=== PATIENT | male | born 1935 | race African-American/Black ===

== ENCOUNTER 2018-02-20 16:40 | Inpatient (IN) | payer OTHER, MEDICAID ==
[2018-02-20 17:28] LABS: BASO # 0.1 x10^3/uL (0.0-0.2); BASO % 0 % (0-3); EOS % 0 % (0-3); HEMATOCRIT 48.1 % (39.0-53.0); HEMOGLOBIN 16.1 g/dL (13.0-17.5); LYMPH # 0.3 x10^3/uL (1.0-4.8); LYMPH % 2 % (24-48); MEAN CORPUSCULAR HEMOGLOBIN 33 pg (25-35); MEAN CORPUSCULAR HGB CONC 33 g/dL (31-37); MEAN CORPUSCULAR VOLUME 99 fL (79-100); MONO # 1.6 x10^3/uL (0.0-1.1); MONO % 9 % (0-9); NEUT # 15.9 x10^3uL (1.8-7.7); NEUT % 89 % (31-73); PLATELET COUNT 207 x10^3/uL (140-400); RED BLOOD COUNT 4.87 x10^6/uL (4.30-5.70); RED CELL DISTRIBUTION WIDTH 15.9 % (11.5-14.5); WHITE BLOOD COUNT 17.9 x10^3/uL (4.0-11.0)
[2018-02-20 17:33] LABS: ANION GAP 11 (6-14); BLOOD UREA NITROGEN 17 mg/dL (8-26); BUN/CREATININE RATIO 11 (6-20); CALCIUM 8.9 mg/dL (8.5-10.1); CARBON DIOXIDE 25 mmol/L (21-32); CHLORIDE 105 mmol/L (98-107); CREATININE 1.5 mg/dL (0.7-1.3); GFR 54.3; GLUCOSE 109 mg/dL (70-99); POTASSIUM 3.9 mmol/L (3.5-5.1); SODIUM 141 mmol/L (136-145)
[2018-02-20 17:34] LABS: ADD MAN DIFF? YES
[2018-02-20 17:36] LABS: INR 1.2 (0.8-1.1); PROTHROMBIN TIME PATIENT 14.3 SEC (11.7-14.0)
[2018-02-20 17:39] LABS: ALBUMIN 3.1 g/dL (3.4-5.0); ALBUMIN/GLOBULIN RATIO 0.7 (1.0-1.7); ALK PHOS 137 U/L (46-116); ALT (SGPT) 16 U/L (16-63); AST (SGOT) 23 U/L (15-37); LIPASE 48 U/L (73-393); TOTAL BILIRUBIN 1.6 mg/dL (0.2-1.0); TOTAL PROTEIN 7.3 g/dL (6.4-8.2)
[2018-02-20 17:47] LABS: TROPONINI 0.056 ng/mL (0.000-0.055)
[2018-02-20 17:49] LABS: CREATINE KINASE 132 U/L (39-308)
[2018-02-20 17:53] LABS: LACTIC ACID 2.2 mmol/L (0.4-2.0)
[2018-02-20 17:54] LABS: CKMB MASS < 0.5 ng/mL (0.0-3.6)
[2018-02-20 18:22] LABS: % BANDS 3 % (0-9); % LYMPHS 1 % (24-48); % MONOS 11 % (0-10); % SEGS 85 % (35-66)
[2018-02-20 18:24] LABS: PLT ESTIMATE ADEQUATE (ADEQUATE)
[2018-02-20 18:35] LABS: BILIRUBIN,URINE MODERATE (NEG); CLARITY,URINE CLOUDY; GLUCOSE,URINE NEGATIVE (NEG); NITRITE,URINE NEGATIVE (NEG); PH,URINE 5.5; PROTEIN,URINE 100 mg/dL (NEG-TRACE)
[2018-02-20 18:40] LABS: NT-PRO BNP 11309 pg/mL (0-449)
[2018-02-20 18:45] LABS: COLOR,URINE AMBER
[2018-02-20 18:48] LABS: RBC,URINE >40 /HPF (0-2)
[2018-02-20 18:49] LABS: BACTERIA,URINE 0 /HPF (0-FEW)
[2018-02-20] MEDS ORDERED: ACETAMINOPHEN 325 MG TABLET. PO (19:00)
[2018-02-20] MEDS: ONDANSETRON PF 4 MG/2 ML VIAL. IV (20:02)
[2018-02-20] MEDS: fentaNYL PF VIAL 100 MCG/2 ML VIAL IV (20:02)
[2018-02-20] MEDS: ASPIRIN 325 MG TABLET PO (20:46)
[2018-02-20 21:31] LABS: LACTIC ACID 1.7 mmol/L (0.4-2.0)
[2018-02-21 04:29] LABS: ADD MAN DIFF? NO
[2018-02-21 04:47] LABS: BASO % 0 % (0-3); EOS # 0.1 x10^3/uL (0.0-0.7); EOS % 1 % (0-3); HEMOGLOBIN 14.4 g/dL (13.0-17.5); LYMPH # 0.8 x10^3/uL (1.0-4.8); LYMPH % 5 % (24-48); MEAN CORPUSCULAR HEMOGLOBIN 33 pg (25-35); MEAN CORPUSCULAR HGB CONC 34 g/dL (31-37); MEAN CORPUSCULAR VOLUME 99 fL (79-100); MONO # 2.1 x10^3/uL (0.0-1.1); MONO % 13 % (0-9); NEUT # 12.9 x10^3uL (1.8-7.7); NEUT % 80 % (31-73); PLATELET COUNT 171 x10^3/uL (140-400); RED BLOOD COUNT 4.35 x10^6/uL (4.30-5.70); RED CELL DISTRIBUTION WIDTH 16.2 % (11.5-14.5)
[2018-02-21 04:59] LABS: ALBUMIN 2.3 g/dL (3.4-5.0); ALBUMIN/GLOBULIN RATIO 0.6 (1.0-1.7); ALK PHOS 106 U/L (46-116); ALT (SGPT) 14 U/L (16-63); ANION GAP 9 (6-14); AST (SGOT) 16 U/L (15-37); BLOOD UREA NITROGEN 20 mg/dL (8-26); BUN/CREATININE RATIO 14 (6-20); CALCIUM 7.9 mg/dL (8.5-10.1); CARBON DIOXIDE 25 mmol/L (21-32); CHLORIDE 106 mmol/L (98-107); CREATININE 1.4 mg/dL (0.7-1.3); GFR 58.9; GLUCOSE 117 mg/dL (70-99); POTASSIUM 3.7 mmol/L (3.5-5.1); SODIUM 140 mmol/L (136-145); TOTAL BILIRUBIN 1.2 mg/dL (0.2-1.0); TOTAL PROTEIN 5.9 g/dL (6.4-8.2)
[2018-02-21 05:02] LABS: TROPONINI 0.055 ng/mL (0.000-0.055)
[2018-02-21] MEDS ORDERED: ACETAMINOPHEN 325 MG TABLET. PO (09:15)
[2018-02-21] MEDS ORDERED: ONDANSETRON PF 4 MG/2 ML VIAL. IV (09:15)
[2018-02-21] MEDS ORDERED: HYDROcodone/APAP 5/325MG 1 TAB TABLET PO (09:15)
[2018-02-21 09:22] LABS: CHOLESTEROL 111 mg/dL (0-200); HDLC 41 mg/dL (40-60); LDLC 59 mg/dL (0-100); NON-HDL CHOLESTEROL 70 mg/dL (0-129); TRIGLYCERIDES 53 mg/dL (0-150); VLDLC 11 mg/dL (0-40)
[2018-02-21 09:26] LABS: CHOLESTEROL/HDL RATIO 2.7
[2018-02-21] MEDS: SPIRONOLACTONE 25 MG TABLET PO ×2 (10:00→20:37)
[2018-02-21 10:34] LABS: TROPONINI 0.052 ng/mL (0.000-0.055)
[2018-02-21] MEDS: IPRATRPIUM/ALBUTEROL 0.5/2.5MG 3 ML NEBU. NEB ×3 (11:28→19:44)
[2018-02-21] MEDS: ASPIRIN ENTERIC COATED 81 MG TABLET.DR. PO (13:13)
[2018-02-21] MEDS: COLCHICINE 0.6 MG TABLET PO (13:13)
[2018-02-21] MEDS: ALLOPURINOL 100 MG TABLET. PO (13:13)
[2018-02-21] MEDS: LOSARTAN POTASSIUM 50 MG TABLET. PO (13:13)
[2018-02-21] MEDS: TAMSULOSIN 0.4 MG CAP.ER.24H. PO (13:13)
[2018-02-21] MEDS: CLOPIDOGREL BISULFATE 75 MG TABLET PO (13:13)
[2018-02-21] MEDS: METOPROLOL TART IMMED RELEASE 50 MG TABLET. PO ×2 (13:14→20:36)
[2018-02-21] MEDS: MINERAL OIL/PETROLATUM TOPICAL CREAM 113GM JAR. TP (13:14)
[2018-02-21 16:53] LABS: TROPONINI 0.037 ng/mL (0.000-0.055)
[2018-02-21] MEDS: BUDESONIDE 0.5 MG/2 ML NEBU. NEB (19:44)
[2018-02-21] MEDS: FAMOTIDINE 20 MG TABLET. PO (20:36)
[2018-02-22 04:09] LABS: ADD MAN DIFF? NO
[2018-02-22 04:17] LABS: BASO % 0 % (0-3); EOS # 0.5 x10^3/uL (0.0-0.7); EOS % 4 % (0-3); HEMOGLOBIN 14.2 g/dL (13.0-17.5); LYMPH % 8 % (24-48); MEAN CORPUSCULAR HEMOGLOBIN 33 pg (25-35); MEAN CORPUSCULAR HGB CONC 33 g/dL (31-37); MEAN CORPUSCULAR VOLUME 100 fL (79-100); MONO # 1.7 x10^3/uL (0.0-1.1); MONO % 13 % (0-9); NEUT # 10.1 x10^3uL (1.8-7.7); NEUT % 76 % (31-73); PLATELET COUNT 156 x10^3/uL (140-400); RED BLOOD COUNT 4.32 x10^6/uL (4.30-5.70); RED CELL DISTRIBUTION WIDTH 16.2 % (11.5-14.5); WHITE BLOOD COUNT 13.3 x10^3/uL (4.0-11.0)
[2018-02-22 04:36] LABS: ANION GAP 7 (6-14); BLOOD UREA NITROGEN 21 mg/dL (8-26); CALCIUM 8.3 mg/dL (8.5-10.1); CARBON DIOXIDE 27 mmol/L (21-32); CHLORIDE 106 mmol/L (98-107); CREATININE 1.4 mg/dL (0.7-1.3); GFR 58.9; GLUCOSE 97 mg/dL (70-99); SODIUM 140 mmol/L (136-145)
[2018-02-22] MEDS: CLOPIDOGREL BISULFATE 75 MG TABLET PO (07:05)
[2018-02-22] MEDS: IPRATRPIUM/ALBUTEROL 0.5/2.5MG 3 ML NEBU. NEB ×4 (07:30→19:37)
[2018-02-22] MEDS: BUDESONIDE 0.5 MG/2 ML NEBU. NEB ×2 (07:30→19:37)
[2018-02-22] MEDS: TAMSULOSIN 0.4 MG CAP.ER.24H. PO (08:26)
[2018-02-22] MEDS: COLCHICINE 0.6 MG TABLET PO (08:26)
[2018-02-22] MEDS: SPIRONOLACTONE 25 MG TABLET PO ×2 (08:28→20:32)
[2018-02-22] MEDS: ASPIRIN ENTERIC COATED 81 MG TABLET.DR. PO (08:28)
[2018-02-22] MEDS: LOSARTAN POTASSIUM 50 MG TABLET. PO (08:28)
[2018-02-22] MEDS: METOPROLOL TART IMMED RELEASE 50 MG TABLET. PO ×2 (08:28→20:32)
[2018-02-22] MEDS: ALLOPURINOL 100 MG TABLET. PO (08:28)
[2018-02-22] MEDS ORDERED: POLYETHYLENE GLYCOL 3350 17 GM PACKET. PO (09:00)
[2018-02-22] MEDS: cloNIDine HCL 0.1 MG TABLET PO (15:28)
[2018-02-22] MEDS: FAMOTIDINE 20 MG TABLET. PO (20:32)
[2018-02-22] MEDS: HALOPERIDOL LACTATE 5 MG/ML VIAL. IVP (21:54)
[2018-02-23] MEDS: CLOPIDOGREL BISULFATE 75 MG TABLET PO ×2 (06:40→08:38)
[2018-02-23] MEDS: BUDESONIDE 0.5 MG/2 ML NEBU. NEB (07:27)
[2018-02-23] MEDS: IPRATRPIUM/ALBUTEROL 0.5/2.5MG 3 ML NEBU. NEB ×2 (07:27→12:10)
[2018-02-23] MEDS: ASPIRIN ENTERIC COATED 81 MG TABLET.DR. PO (08:38)
[2018-02-23] MEDS: LOSARTAN POTASSIUM 50 MG TABLET. PO (08:38)
[2018-02-23] MEDS: TAMSULOSIN 0.4 MG CAP.ER.24H. PO (08:38)
[2018-02-23] MEDS: COLCHICINE 0.6 MG TABLET PO (08:39)
[2018-02-23] MEDS: METOPROLOL TART IMMED RELEASE 50 MG TABLET. PO (08:39)
[2018-02-23] MEDS: SPIRONOLACTONE 25 MG TABLET PO (08:39)
[2018-02-23] MEDS: ALLOPURINOL 100 MG TABLET. PO (08:39)
== END 2018-02-23 13:25 | DRG 871 ==
LOC: ER 16:40 → 2 NORTH 18:03
DX: A41.9 Sepsis, unspecified organism (principal); I21.4 Non-ST elevation (NSTEMI) myocardial infarction; J96.90 Respiratory failure, unspecified, unspecified whether with hypoxia or hypercapnia; N17.0 Acute kidney failure with tubular necrosis; I13.0 Hypertensive heart and chronic kidney disease with heart failure and stage 1 through stage 4 chronic kidney disease, or unspecified chronic kidney disease; Z88.0 Allergy status to penicillin; E78.5 Hyperlipidemia, unspecified; I25.10 Atherosclerotic heart disease of native coronary artery without angina pectoris; I25.5 Ischemic cardiomyopathy; I25.2 Old myocardial infarction; I48.91 Unspecified atrial fibrillation; I50.9 Heart failure, unspecified; J44.9 Chronic obstructive pulmonary disease, unspecified; E66.9 Obesity, unspecified; M19.90 Unspecified osteoarthritis, unspecified site; F32.9 Major depressive disorder, single episode, unspecified; K21.9 Gastro-esophageal reflux disease without esophagitis; N18.9 Chronic kidney disease, unspecified; Z59.0 Homelessness; Z79.02 Long term (current) use of antithrombotics/antiplatelets; Z79.82 Long term (current) use of aspirin; Z79.899 Other long term (current) drug therapy; Z82.49 Family history of ischemic heart disease and other diseases of the circulatory system; Z86.73 Personal history of transient ischemic attack (TIA), and cerebral infarction without residual deficits; Z90.49 Acquired absence of other specified parts of digestive tract; Z95.0 Presence of cardiac pacemaker; Z87.01 Personal history of pneumonia (recurrent)
CPT/HCPCS: 36415; 71045; 74176; 80048; 80053; 80061; 81001; 82553; 83605; 83690; 83880; 84484; 85007; 85025; 85610; 87040; 93005; 93306; 94640; 94760; 96365; 96375; 97110-GP; 97116-GP; 97162-GP; 97166-GO; 97530-GO; 97530-GP; 97535-GO; 99285; 99285-25; J1630; J1956; J2060; J2405; J3010; J7620; J7626

== ENCOUNTER 2018-02-24 21:09 | Emergency (ER) | payer OTHER ==
[2018-02-24] MEDS: LIDOCAINE 2% 20 ML VIAL. IJ (22:05)
[2018-02-24] MEDS: DIPHTH,PERTUSS(ACELL),TET TOX 0.5 ML DISP.SYRIN. VAX IM (22:06)
[2018-02-24 22:08] LABS: ADD MAN DIFF? NO
[2018-02-24 22:10] LABS: BASO # 0.1 x10^3/uL (0.0-0.2); BASO % 1 % (0-3); EOS # 0.7 x10^3/uL (0.0-0.7); EOS % 8 % (0-3); HEMATOCRIT 44.8 % (39.0-53.0); HEMOGLOBIN 14.7 g/dL (13.0-17.5); LYMPH # 0.7 x10^3/uL (1.0-4.8); LYMPH % 8 % (24-48); MEAN CORPUSCULAR HEMOGLOBIN 33 pg (25-35); MEAN CORPUSCULAR HGB CONC 33 g/dL (31-37); MEAN CORPUSCULAR VOLUME 100 fL (79-100); MONO # 1.2 x10^3/uL (0.0-1.1); MONO % 14 % (0-9); NEUT # 6.1 x10^3uL (1.8-7.7); NEUT % 70 % (31-73); PLATELET COUNT 180 x10^3/uL (140-400); WHITE BLOOD COUNT 8.7 x10^3/uL (4.0-11.0)
[2018-02-24 22:19] LABS: INR 1.2 (0.8-1.1); PROTHROMBIN TIME PATIENT 14.2 SEC (11.7-14.0)
[2018-02-24 22:26] LABS: ANION GAP 8 (6-14); BLOOD UREA NITROGEN 21 mg/dL (8-26); BUN/CREATININE RATIO 15 (6-20); CALCIUM 8.7 mg/dL (8.5-10.1); CARBON DIOXIDE 28 mmol/L (21-32); CHLORIDE 107 mmol/L (98-107); CREATININE 1.4 mg/dL (0.7-1.3); GFR 58.9; GLUCOSE 117 mg/dL (70-99); SODIUM 143 mmol/L (136-145)
[2018-02-24 22:31] LABS: ALBUMIN 2.6 g/dL (3.4-5.0); ALBUMIN/GLOBULIN RATIO 0.6 (1.0-1.7); ALK PHOS 117 U/L (46-116); ALT (SGPT) 16 U/L (16-63); AST (SGOT) 17 U/L (15-37); TOTAL BILIRUBIN 0.5 mg/dL (0.2-1.0); TOTAL PROTEIN 6.9 g/dL (6.4-8.2)
[2018-02-24 22:33] LABS: TROPONINI 0.022 ng/mL (0.000-0.055)
[2018-02-24 23:27] LABS: BILIRUBIN,URINE NEGATIVE (NEG); CLARITY,URINE CLEAR; COLOR,URINE YELLOW; GLUCOSE,URINE NEGATIVE (NEG); NITRITE,URINE NEGATIVE (NEG); PROTEIN,URINE NEGATIVE (NEG-TRACE)
[2018-02-24 23:35] LABS: BACTERIA,URINE 0 /HPF (0-FEW); HYALINE CASTS, URINE FEW /HPF; RBC,URINE OCC /HPF (0-2); SQUAMOUS EPITHELIAL CELL,UR OCC /LPF
== END 2018-02-25 01:51 | disposition home or self-care (01) ==
LOC: ER 02-25 01:51
DX: S01.81XA Laceration without foreign body of other part of head, initial encounter (principal); I10 Essential (primary) hypertension; Z86.73 Personal history of transient ischemic attack (TIA), and cerebral infarction without residual deficits; Z88.0 Allergy status to penicillin; W18.09XA Striking against other object with subsequent fall, initial encounter; Y93.89 Activity, other specified; Y99.8 Other external cause status; Y92.89 Other specified places as the place of occurrence of the external cause
CPT/HCPCS: 12011; 36415; 70450; 71045; 73562; 80053; 81001; 84484; 85025; 85610; 87086; 90471; 90715; 93005; 99285-25; J2001

== ENCOUNTER 2018-02-25 04:52 | Inpatient (IN) | payer OTHER ==
[2018-02-25 05:15] LABS: POC GLUCOSE 94 mg/dL (70-99)
[2018-02-25] MEDS: amLODIPine BESYLATE 5 MG TABLET PO (05:44)
[2018-02-25] MEDS: IV NORMAL SALINE 1000ML BAG 1,000 ML IV (13:08)
[2018-02-25 19:09] LABS: MRSA BY PCR Negative (Negative)
[2018-02-26] MEDS ORDERED: HYDROcodone/APAP 5/325MG 1 TAB TABLET PO (06:15)
[2018-02-26] MEDS ORDERED: POLYETHYLENE GLYCOL 3350 17 GM PACKET. PO (06:15)
[2018-02-26] MEDS: BUDESONIDE 0.5 MG/2 ML NEBU. NEB ×2 (07:54→20:34)
[2018-02-26] MEDS: IPRATRPIUM/ALBUTEROL 0.5/2.5MG 3 ML NEBU. NEB ×4 (07:54→20:34)
[2018-02-26] MEDS: ASPIRIN ENTERIC COATED 81 MG TABLET.DR. PO (08:34)
[2018-02-26] MEDS: CLOPIDOGREL BISULFATE 75 MG TABLET PO (08:34)
[2018-02-26] MEDS: LOSARTAN POTASSIUM 50 MG TABLET. PO (08:34)
[2018-02-26] MEDS: COLCHICINE 0.6 MG TABLET PO (08:34)
[2018-02-26] MEDS: METOPROLOL TART IMMED RELEASE 50 MG TABLET. PO ×2 (08:35→20:54)
[2018-02-26] MEDS: SPIRONOLACTONE 25 MG TABLET PO ×2 (08:35→20:54)
[2018-02-26] MEDS: ALLOPURINOL 100 MG TABLET. PO (08:35)
[2018-02-26] MEDS: TAMSULOSIN 0.4 MG CAP.ER.24H. PO (08:35)
[2018-02-26] MEDS: IV NORMAL SALINE 1000ML BAG 1,000 ML IV (10:59)
[2018-02-26 17:22] LABS: ANION GAP 9 (6-14); BLOOD UREA NITROGEN 15 mg/dL (8-26); CALCIUM 8.2 mg/dL (8.5-10.1); CARBON DIOXIDE 23 mmol/L (21-32); CHLORIDE 107 mmol/L (98-107); CREATININE 1.3 mg/dL (0.7-1.3); GFR 64.1; GLUCOSE 124 mg/dL (70-99); POTASSIUM 3.6 mmol/L (3.5-5.1); SODIUM 139 mmol/L (136-145)
[2018-02-26] MEDS: LACTOBACILLUS RHAMNOSUS GG 1 CAPSULE. PO (20:53)
[2018-02-26] MEDS: NYSTATIN TOPICAL POWDER 15GM BOTTLE. TP (20:54)
[2018-02-26] MEDS: FAMOTIDINE 20 MG TABLET. PO (20:54)
[2018-02-27] MEDS: IV NORMAL SALINE 1000ML BAG 1,000 ML IV (05:53)
[2018-02-27] MEDS: IPRATRPIUM/ALBUTEROL 0.5/2.5MG 3 ML NEBU. NEB ×4 (07:10→19:33)
[2018-02-27] MEDS: BUDESONIDE 0.5 MG/2 ML NEBU. NEB ×2 (07:10→19:33)
[2018-02-27] MEDS: CLOPIDOGREL BISULFATE 75 MG TABLET PO (09:39)
[2018-02-27] MEDS: LACTOBACILLUS RHAMNOSUS GG 1 CAPSULE. PO ×2 (09:39→20:05)
[2018-02-27] MEDS: NYSTATIN TOPICAL POWDER 15GM BOTTLE. TP ×2 (09:39→20:07)
[2018-02-27] MEDS: COLCHICINE 0.6 MG TABLET PO (09:39)
[2018-02-27] MEDS: TAMSULOSIN 0.4 MG CAP.ER.24H. PO (09:39)
[2018-02-27] MEDS: SPIRONOLACTONE 25 MG TABLET PO ×2 (09:40→20:06)
[2018-02-27] MEDS: ASPIRIN ENTERIC COATED 81 MG TABLET.DR. PO (09:40)
[2018-02-27] MEDS: LOSARTAN POTASSIUM 50 MG TABLET. PO (12:55)
[2018-02-27] MEDS: ALLOPURINOL 100 MG TABLET. PO (12:55)
[2018-02-27] MEDS: METOPROLOL TART IMMED RELEASE 50 MG TABLET. PO ×2 (12:56→20:06)
[2018-02-27] MEDS: FAMOTIDINE 20 MG TABLET. PO (20:05)
[2018-02-27] MEDS: risperiDONE 0.25 MG TABLET. PO (21:46)
[2018-02-28] MEDS: IV NORMAL SALINE 1000ML BAG 1,000 ML IV ×7 (00:45→23:50)
[2018-02-28 07:17] LABS: ADD MAN DIFF? NO
[2018-02-28] MEDS: IPRATRPIUM/ALBUTEROL 0.5/2.5MG 3 ML NEBU. NEB ×3 (07:18→20:33)
[2018-02-28] MEDS: BUDESONIDE 0.5 MG/2 ML NEBU. NEB ×2 (07:18→20:33)
[2018-02-28 07:30] LABS: BASO # 0.1 x10^3/uL (0.0-0.2); BASO % 1 % (0-3); EOS # 0.6 x10^3/uL (0.0-0.7); EOS % 6 % (0-3); HEMATOCRIT 35.2 % (39.0-53.0); HEMOGLOBIN 11.7 g/dL (13.0-17.5); LYMPH # 0.6 x10^3/uL (1.0-4.8); LYMPH % 6 % (24-48); MEAN CORPUSCULAR HEMOGLOBIN 33 pg (25-35); MEAN CORPUSCULAR HGB CONC 33 g/dL (31-37); MEAN CORPUSCULAR VOLUME 100 fL (79-100); MONO # 0.9 x10^3/uL (0.0-1.1); MONO % 10 % (0-9); NEUT # 7.3 x10^3uL (1.8-7.7); NEUT % 76 % (31-73); PLATELET COUNT 170 x10^3/uL (140-400); RED BLOOD COUNT 3.54 x10^6/uL (4.30-5.70); RED CELL DISTRIBUTION WIDTH 16.1 % (11.5-14.5); WHITE BLOOD COUNT 9.5 x10^3/uL (4.0-11.0)
[2018-02-28] MEDS: TAMSULOSIN 0.4 MG CAP.ER.24H. PO (08:13)
[2018-02-28] MEDS: LACTOBACILLUS RHAMNOSUS GG 1 CAPSULE. PO ×2 (08:13→20:11)
[2018-02-28] MEDS: LOSARTAN POTASSIUM 50 MG TABLET. PO (08:13)
[2018-02-28] MEDS: SPIRONOLACTONE 25 MG TABLET PO ×2 (08:13→20:11)
[2018-02-28] MEDS: COLCHICINE 0.6 MG TABLET PO (08:13)
[2018-02-28] MEDS: ALLOPURINOL 100 MG TABLET. PO (08:14)
[2018-02-28] MEDS: METOPROLOL TART IMMED RELEASE 50 MG TABLET. PO ×2 (08:14→21:00)
[2018-02-28] MEDS: NYSTATIN TOPICAL POWDER 15GM BOTTLE. TP ×2 (08:14→21:00)
[2018-02-28] MEDS: risperiDONE 0.25 MG TABLET. PO ×2 (08:14→20:11)
[2018-02-28 08:24] LABS: FECAL OB PT POSITIVE (NEG); NEG OBC FOB NEG
[2018-02-28 08:25] LABS: POS OBC FOB POS
[2018-02-28] MEDS ORDERED: PNEUMOCOCCAL VAX SCREEN BY RX. MC (08:30)
[2018-02-28 09:00] LABS: MAGNESIUM 1.6 mg/dL (1.8-2.4)
[2018-02-28 09:00] LABS: ANION GAP 9 (6-14); BLOOD UREA NITROGEN 17 mg/dL (8-26); BUN/CREATININE RATIO 12 (6-20); CALCIUM 7.8 mg/dL (8.5-10.1); CARBON DIOXIDE 23 mmol/L (21-32); CHLORIDE 109 mmol/L (98-107); CREATININE 1.4 mg/dL (0.7-1.3); GFR 58.9; GLUCOSE 103 mg/dL (70-99); POTASSIUM 4.4 mmol/L (3.5-5.1); SODIUM 141 mmol/L (136-145)
[2018-02-28 09:06] LABS: ALBUMIN 2.1 g/dL (3.4-5.0); ALBUMIN/GLOBULIN RATIO 0.7 (1.0-1.7); ALK PHOS 84 U/L (46-116); ALT (SGPT) 14 U/L (16-63); AST (SGOT) 14 U/L (15-37); TOTAL BILIRUBIN 0.8 mg/dL (0.2-1.0); TOTAL PROTEIN 5.1 g/dL (6.4-8.2)
[2018-02-28 09:21] LABS: ADD MAN DIFF? NO
[2018-02-28 09:28] LABS: BASO # 0.1 x10^3/uL (0.0-0.2); BASO % 1 % (0-3); EOS # 0.4 x10^3/uL (0.0-0.7); EOS % 4 % (0-3); HEMATOCRIT 31.7 % (39.0-53.0); HEMOGLOBIN 10.4 g/dL (13.0-17.5); LYMPH # 0.6 x10^3/uL (1.0-4.8); LYMPH % 7 % (24-48); MEAN CORPUSCULAR HEMOGLOBIN 33 pg (25-35); MEAN CORPUSCULAR HGB CONC 33 g/dL (31-37); MEAN CORPUSCULAR VOLUME 102 fL (79-100); MONO # 0.9 x10^3/uL (0.0-1.1); MONO % 10 % (0-9); NEUT # 7.3 x10^3uL (1.8-7.7); NEUT % 78 % (31-73); PLATELET COUNT 143 x10^3/uL (140-400); RED BLOOD COUNT 3.12 x10^6/uL (4.30-5.70); RED CELL DISTRIBUTION WIDTH 16.3 % (11.5-14.5); WHITE BLOOD COUNT 9.4 x10^3/uL (4.0-11.0)
[2018-02-28 09:40] LABS: PARTIAL THROMBOPLASTIN TIME 31 SEC (24-38)
[2018-02-28 09:40] LABS: INR 1.4 (0.8-1.1); PROTHROMBIN TIME PATIENT 16.1 SEC (11.7-14.0)
[2018-02-28 09:43] LABS: LACTIC ACID 3.3 mmol/L (0.4-2.0); TROPONINI 0.048 ng/mL (0.000-0.055)
[2018-02-28] MEDS ORDERED: IV NORMAL SALINE 500ML BAG 500 ML IV (10:30)
[2018-02-28] MEDS ORDERED: NOREPINEPHRIN 8MG/250ML PREMIX 250 ML IV (10:30)
[2018-02-28] MEDS: VANCOMYCIN 2 GM in IV 1/2 NORMAL SALINE 500 ML IV (10:33)
[2018-02-28] MEDS: MAGNESIUM SULFATE 2GM 50 ML IV (11:00)
[2018-02-28] MEDS: VANCOMYCIN PER PHARMACY MC (13:38)
[2018-02-28] MEDS ORDERED: LIDOCAINE 1% PF 2 ML VIAL. (14:12)
[2018-02-28 14:58] LABS: HEMATOCRIT 22.3 % (39.0-53.0)
[2018-02-28 14:58] LABS: HEMOGLOBIN 7.3 g/dL (13.0-17.5)
[2018-02-28] MEDS: LIDOCAINE 1% PF 2 ML VIAL. INJ ×2 (15:00)
[2018-02-28] MEDS: PANTOPRAZOLE SODIUM IV DRIP 80 MG in IV NORMAL SALINE 100ML 100 ML IV (15:13)
[2018-02-28] MEDS: PANTOPRAZOLE IV PUSH 40 MG VIAL. IVP (15:19)
[2018-02-28 15:21] LABS: LACTIC ACID 1.2 mmol/L (0.4-2.0)
[2018-02-28 15:29] LABS: BILIRUBIN,URINE SMALL (NEG); GLUCOSE,URINE NEGATIVE (NEG); NITRITE,URINE NEGATIVE (NEG); PH,URINE 5.5; PROTEIN,URINE NEGATIVE (NEG-TRACE)
[2018-02-28 15:41] LABS: CLARITY,URINE HAZY; COLOR,URINE DK YELLOW
[2018-02-28 15:49] LABS: AMORPHOUS SEDIMENT,UR PRESENT /HPF; BACTERIA,URINE 0 /HPF (0-FEW); HYALINE CASTS, URINE OCCASIONAL /HPF; RBC,URINE 0 /HPF (0-2); WBC,URINE 0 /HPF (0-4)
[2018-02-28 16:54] LABS: TROPONINI 0.071 ng/mL (0.000-0.055)
[2018-02-28] MEDS: FAMOTIDINE 20 MG TABLET. PO (20:11)
[2018-02-28 22:42] LABS: HEMOGLOBIN 10.5 g/dL (13.0-17.5); MEAN CORPUSCULAR HGB CONC 34 g/dL (31-37)
[2018-02-28 23:00] LABS: TROPONINI 0.078 ng/mL (0.000-0.055)
[2018-03-01] MEDS: IV NORMAL SALINE 1000ML BAG 1,000 ML IV ×3 (00:15→23:57)
[2018-03-01] MEDS: PANTOPRAZOLE SODIUM IV DRIP 80 MG in IV NORMAL SALINE 100ML 100 ML IV ×3 (00:21→23:57)
[2018-03-01] MEDS: IPRATRPIUM/ALBUTEROL 0.5/2.5MG 3 ML NEBU. NEB ×4 (06:57→19:32)
[2018-03-01] MEDS: BUDESONIDE 0.5 MG/2 ML NEBU. NEB ×2 (06:57→19:32)
[2018-03-01] MEDS: COLCHICINE 0.6 MG TABLET PO (08:07)
[2018-03-01] MEDS: LOSARTAN POTASSIUM 50 MG TABLET. PO (08:07)
[2018-03-01] MEDS: TAMSULOSIN 0.4 MG CAP.ER.24H. PO (08:07)
[2018-03-01] MEDS: METOPROLOL TART IMMED RELEASE 50 MG TABLET. PO (08:07)
[2018-03-01] MEDS: LACTOBACILLUS RHAMNOSUS GG 1 CAPSULE. PO ×2 (08:07→20:44)
[2018-03-01] MEDS: SPIRONOLACTONE 25 MG TABLET PO (08:07)
[2018-03-01] MEDS: risperiDONE 0.25 MG TABLET. PO ×2 (08:08→20:44)
[2018-03-01] MEDS: ALLOPURINOL 100 MG TABLET. PO (08:08)
[2018-03-01 09:19] LABS: HEMATOCRIT 27.7 % (39.0-53.0); HEMOGLOBIN 9.3 g/dL (13.0-17.5); MEAN CORPUSCULAR HGB CONC 34 g/dL (31-37)
[2018-03-01 09:36] LABS: ALBUMIN 1.7 g/dL (3.4-5.0); ALBUMIN/GLOBULIN RATIO 0.7 (1.0-1.7); ALK PHOS 62 U/L (46-116); ALT (SGPT) 9 U/L (16-63); ANION GAP 9 (6-14); AST (SGOT) 15 U/L (15-37); BLOOD UREA NITROGEN 20 mg/dL (8-26); BUN/CREATININE RATIO 13 (6-20); CARBON DIOXIDE 20 mmol/L (21-32); CHLORIDE 115 mmol/L (98-107); CREATININE 1.6 mg/dL (0.7-1.3); GFR 50.4; GLUCOSE 103 mg/dL (70-99); POTASSIUM 4.1 mmol/L (3.5-5.1); SODIUM 144 mmol/L (136-145); TOTAL PROTEIN 4.1 g/dL (6.4-8.2)
[2018-03-01] MEDS: NYSTATIN TOPICAL POWDER 15GM BOTTLE. TP ×2 (11:04→20:44)
[2018-03-01] MEDS: VANCOMYCIN 1.5 GM in IV DEXTROSE 5% 500 ML IV (11:05)
[2018-03-01 15:10] LABS: HEMATOCRIT 26.8 % (39.0-53.0); MEAN CORPUSCULAR HEMOGLOBIN 33 pg (25-35); MEAN CORPUSCULAR HGB CONC 34 g/dL (31-37); MEAN CORPUSCULAR VOLUME 97 fL (79-100); PLATELET COUNT 124 x10^3/uL (140-400); RED BLOOD COUNT 2.77 x10^6/uL (4.30-5.70); RED CELL DISTRIBUTION WIDTH 16.4 % (11.5-14.5); WHITE BLOOD COUNT 9.8 x10^3/uL (4.0-11.0)
[2018-03-01 16:14] LABS: IMMEDIATE SPIN CROSSMATCH 1 5
[2018-03-01] MEDS: HALOPERIDOL LACTATE 5 MG/ML VIAL. IVP ×2 (17:24→20:50)
[2018-03-01 21:10] LABS: HEMATOCRIT 30.3 % (39.0-53.0); HEMOGLOBIN 10.2 g/dL (13.0-17.5); MEAN CORPUSCULAR HGB CONC 34 g/dL (31-37)
[2018-03-02 05:52] LABS: ADD MAN DIFF? NO
[2018-03-02 05:58] LABS: BASO # 0.1 x10^3/uL (0.0-0.2); BASO % 1 % (0-3); EOS # 1.1 x10^3/uL (0.0-0.7); EOS % 10 % (0-3); HEMATOCRIT 29.2 % (39.0-53.0); HEMOGLOBIN 9.8 g/dL (13.0-17.5); LYMPH # 0.7 x10^3/uL (1.0-4.8); LYMPH % 6 % (24-48); MEAN CORPUSCULAR HEMOGLOBIN 33 pg (25-35); MEAN CORPUSCULAR HGB CONC 34 g/dL (31-37); MEAN CORPUSCULAR VOLUME 97 fL (79-100); MONO # 1.5 x10^3/uL (0.0-1.1); MONO % 13 % (0-9); NEUT # 8.1 x10^3uL (1.8-7.7); NEUT % 70 % (31-73); PLATELET COUNT 124 x10^3/uL (140-400); RED BLOOD COUNT 3.02 x10^6/uL (4.30-5.70); RED CELL DISTRIBUTION WIDTH 16.6 % (11.5-14.5); WHITE BLOOD COUNT 11.6 x10^3/uL (4.0-11.0)
[2018-03-02 06:15] LABS: ANION GAP 9 (6-14); BLOOD UREA NITROGEN 18 mg/dL (8-26); CALCIUM 7.3 mg/dL (8.5-10.1); CARBON DIOXIDE 20 mmol/L (21-32); CHLORIDE 114 mmol/L (98-107); CREATININE 1.7 mg/dL (0.7-1.3); GLUCOSE 102 mg/dL (70-99); POTASSIUM 3.7 mmol/L (3.5-5.1); SODIUM 143 mmol/L (136-145)
[2018-03-02] MEDS ORDERED: PANTOPRAZOLE 40 MG TABLET.DR. PO (07:30)
[2018-03-02] MEDS ORDERED: PANTOPRAZOLE IV PUSH 40 MG VIAL. IVP (07:30)
[2018-03-02] MEDS: BUDESONIDE 0.5 MG/2 ML NEBU. NEB ×2 (08:09→19:33)
[2018-03-02] MEDS: IPRATRPIUM/ALBUTEROL 0.5/2.5MG 3 ML NEBU. NEB ×4 (08:09→19:33)
[2018-03-02 08:31] LABS: MAGNESIUM 1.5 mg/dL (1.8-2.4)
[2018-03-02] MEDS: COLCHICINE 0.6 MG TABLET PO (09:00)
[2018-03-02] MEDS: risperiDONE 0.25 MG TABLET. PO ×2 (09:00→19:17)
[2018-03-02] MEDS: ALLOPURINOL 100 MG TABLET. PO (09:00)
[2018-03-02] MEDS: LACTOBACILLUS RHAMNOSUS GG 1 CAPSULE. PO ×2 (09:00→19:17)
[2018-03-02] MEDS: HALOPERIDOL LACTATE 5 MG/ML VIAL. IVP (09:54)
[2018-03-02] MEDS: NYSTATIN TOPICAL POWDER 15GM BOTTLE. TP ×2 (09:55→21:15)
[2018-03-02] MEDS: MAGNESIUM SULFATE 2GM 50 ML IV ×2 (10:01→11:00)
[2018-03-02] MEDS: IV NORMAL SALINE 1000ML BAG 1,000 ML IV ×2 (10:03→23:37)
[2018-03-02] MEDS: PANTOPRAZOLE SODIUM IV DRIP 80 MG in IV NORMAL SALINE 100ML 100 ML IV (10:03)
[2018-03-02 15:05] LABS: HEMATOCRIT 32.3 % (39.0-53.0); HEMOGLOBIN 10.6 g/dL (13.0-17.5); MEAN CORPUSCULAR HEMOGLOBIN 32 pg (25-35); MEAN CORPUSCULAR HGB CONC 33 g/dL (31-37); MEAN CORPUSCULAR VOLUME 98 fL (79-100); PLATELET COUNT 120 x10^3/uL (140-400); RED CELL DISTRIBUTION WIDTH 16.9 % (11.5-14.5); WHITE BLOOD COUNT 12.6 x10^3/uL (4.0-11.0)
[2018-03-02 15:22] LABS: VANC TR 18.7 mcg/mL (10.0-20.0)
[2018-03-02] MEDS: VANCOMYCIN PER PHARMACY MC ×2 (15:58→16:00)
[2018-03-02] MEDS: VANCOMYCIN 1 GM in IV DEXTROSE 5% 250 ML IV (17:26)
[2018-03-03 01:16] LABS: HEMATOCRIT 27.7 % (39.0-53.0); HEMOGLOBIN 9.3 g/dL (13.0-17.5); MEAN CORPUSCULAR HEMOGLOBIN 33 pg (25-35); MEAN CORPUSCULAR HGB CONC 34 g/dL (31-37); MEAN CORPUSCULAR VOLUME 98 fL (79-100); PLATELET COUNT 114 x10^3/uL (140-400); RED BLOOD COUNT 2.81 x10^6/uL (4.30-5.70); RED CELL DISTRIBUTION WIDTH 16.9 % (11.5-14.5); WHITE BLOOD COUNT 10.8 x10^3/uL (4.0-11.0)
[2018-03-03] MEDS: IV NORMAL SALINE 1000ML BAG 1,000 ML IV ×3 (02:15→22:57)
[2018-03-03] MEDS: PANTOPRAZOLE SODIUM IV DRIP 80 MG in IV NORMAL SALINE 100ML 100 ML IV ×4 (04:00→15:43)
[2018-03-03] MEDS: BUDESONIDE 0.5 MG/2 ML NEBU. NEB ×2 (07:27→19:03)
[2018-03-03] MEDS: IPRATRPIUM/ALBUTEROL 0.5/2.5MG 3 ML NEBU. NEB ×4 (07:27→19:03)
[2018-03-03] MEDS: LACTOBACILLUS RHAMNOSUS GG 1 CAPSULE. PO ×2 (08:30→20:39)
[2018-03-03] MEDS: risperiDONE 0.25 MG TABLET. PO ×3 (08:30→20:39)
[2018-03-03] MEDS: ALLOPURINOL 100 MG TABLET. PO (08:30)
[2018-03-03] MEDS: COLCHICINE 0.6 MG TABLET PO (08:30)
[2018-03-03 08:54] LABS: BASO # 0.1 x10^3/uL (0.0-0.2); BASO % 1 % (0-3); EOS # 1.1 x10^3/uL (0.0-0.7); EOS % 10 % (0-3); HEMATOCRIT 27.6 % (39.0-53.0); HEMOGLOBIN 9.2 g/dL (13.0-17.5); LYMPH # 0.8 x10^3/uL (1.0-4.8); LYMPH % 8 % (24-48); MEAN CORPUSCULAR HEMOGLOBIN 33 pg (25-35); MEAN CORPUSCULAR HGB CONC 34 g/dL (31-37); MEAN CORPUSCULAR VOLUME 99 fL (79-100); MONO # 1.4 x10^3/uL (0.0-1.1); MONO % 13 % (0-9); NEUT # 7.5 x10^3uL (1.8-7.7); NEUT % 68 % (31-73); PLATELET COUNT 116 x10^3/uL (140-400); RED BLOOD COUNT 2.79 x10^6/uL (4.30-5.70); WHITE BLOOD COUNT 11.1 x10^3/uL (4.0-11.0)
[2018-03-03 08:58] LABS: ADD MAN DIFF? YES
[2018-03-03 09:30] LABS: ANION GAP 10 (6-14); BLOOD UREA NITROGEN 15 mg/dL (8-26); CALCIUM 7.7 mg/dL (8.5-10.1); CARBON DIOXIDE 19 mmol/L (21-32); CHLORIDE 113 mmol/L (98-107); CREATININE 1.7 mg/dL (0.7-1.3); GLUCOSE 65 mg/dL (70-99); POTASSIUM 3.6 mmol/L (3.5-5.1); SODIUM 142 mmol/L (136-145)
[2018-03-03 10:01] LABS: % BASOS 1 % (0-3); % EOS 5 % (0-5); % LYMPHS 5 % (24-48); % METAS 1 % (0-0); % MONOS 5 % (0-10); % SEGS 83 % (35-66)
[2018-03-03 10:02] LABS: PLT ESTIMATE DECREASED (ADEQUATE)
[2018-03-03] MEDS: NYSTATIN TOPICAL POWDER 15GM BOTTLE. TP ×2 (10:02→20:53)
[2018-03-03 10:03] LABS: ANISOCYTOSIS PRESENT; POIKILOCYTOSIS PRESENT
[2018-03-03 12:32] LABS: HEMOGLOBIN 10.5 g/dL (13.0-17.5); MEAN CORPUSCULAR HEMOGLOBIN 33 pg (25-35); MEAN CORPUSCULAR HGB CONC 34 g/dL (31-37); MEAN CORPUSCULAR VOLUME 98 fL (79-100); PLATELET COUNT 128 x10^3/uL (140-400); RED BLOOD COUNT 3.16 x10^6/uL (4.30-5.70); WHITE BLOOD COUNT 11.2 x10^3/uL (4.0-11.0)
[2018-03-03] MEDS: VANCOMYCIN PER PHARMACY MC (14:07)
[2018-03-03] MEDS: VANCOMYCIN 1 GM in IV DEXTROSE 5% 250 ML IV (16:59)
[2018-03-03] MEDS: ACETAMINOPHEN 325 MG TABLET. PO (20:39)
[2018-03-03 21:46] LABS: HEMATOCRIT 30.5 % (39.0-53.0); MEAN CORPUSCULAR HEMOGLOBIN 33 pg (25-35); MEAN CORPUSCULAR HGB CONC 33 g/dL (31-37); MEAN CORPUSCULAR VOLUME 100 fL (79-100); PLATELET COUNT 136 x10^3/uL (140-400); RED BLOOD COUNT 3.04 x10^6/uL (4.30-5.70); RED CELL DISTRIBUTION WIDTH 17.1 % (11.5-14.5); WHITE BLOOD COUNT 11.9 x10^3/uL (4.0-11.0)
[2018-03-03] MEDS: HALOPERIDOL LACTATE 5 MG/ML VIAL. IVP (22:17)
[2018-03-04] MEDS: PANTOPRAZOLE SODIUM IV DRIP 80 MG in IV NORMAL SALINE 100ML 100 ML IV ×2 (01:23→08:08)
[2018-03-04 04:49] LABS: ADD MAN DIFF? NO
[2018-03-04 05:02] LABS: BASO # 0.1 x10^3/uL (0.0-0.2); BASO % 1 % (0-3); EOS % 8 % (0-3); HEMATOCRIT 30.5 % (39.0-53.0); HEMOGLOBIN 10.1 g/dL (13.0-17.5); LYMPH # 1.1 x10^3/uL (1.0-4.8); LYMPH % 9 % (24-48); MEAN CORPUSCULAR HEMOGLOBIN 33 pg (25-35); MEAN CORPUSCULAR HGB CONC 33 g/dL (31-37); MEAN CORPUSCULAR VOLUME 100 fL (79-100); MONO # 1.2 x10^3/uL (0.0-1.1); MONO % 11 % (0-9); NEUT # 8.4 x10^3uL (1.8-7.7); NEUT % 72 % (31-73); PLATELET COUNT 132 x10^3/uL (140-400); RED BLOOD COUNT 3.05 x10^6/uL (4.30-5.70); RED CELL DISTRIBUTION WIDTH 16.9 % (11.5-14.5); WHITE BLOOD COUNT 11.7 x10^3/uL (4.0-11.0)
[2018-03-04 05:17] LABS: ANION GAP 8 (6-14); BLOOD UREA NITROGEN 11 mg/dL (8-26); CALCIUM 7.8 mg/dL (8.5-10.1); CARBON DIOXIDE 21 mmol/L (21-32); CHLORIDE 114 mmol/L (98-107); CREATININE 1.6 mg/dL (0.7-1.3); GFR 50.4; GLUCOSE 85 mg/dL (70-99); POTASSIUM 3.6 mmol/L (3.5-5.1); SODIUM 143 mmol/L (136-145)
[2018-03-04] MEDS: BUDESONIDE 0.5 MG/2 ML NEBU. NEB ×2 (07:24→19:58)
[2018-03-04] MEDS: IPRATRPIUM/ALBUTEROL 0.5/2.5MG 3 ML NEBU. NEB ×4 (07:24→19:58)
[2018-03-04] MEDS: COLCHICINE 0.6 MG TABLET PO (08:07)
[2018-03-04] MEDS: LACTOBACILLUS RHAMNOSUS GG 1 CAPSULE. PO ×2 (08:07→20:40)
[2018-03-04] MEDS: ALLOPURINOL 100 MG TABLET. PO (08:07)
[2018-03-04] MEDS: risperiDONE 0.25 MG TABLET. PO ×2 (08:07→20:40)
[2018-03-04] MEDS: IV NORMAL SALINE 1000ML BAG 1,000 ML IV (08:08)
[2018-03-04] MEDS: NYSTATIN TOPICAL POWDER 15GM BOTTLE. TP ×2 (08:08→20:41)
[2018-03-05] MEDS: BUDESONIDE 0.5 MG/2 ML NEBU. NEB ×2 (08:00→19:27)
[2018-03-05] MEDS: IPRATRPIUM/ALBUTEROL 0.5/2.5MG 3 ML NEBU. NEB ×4 (08:00→19:27)
[2018-03-05] MEDS: PANTOPRAZOLE 40 MG TABLET.DR. PO (08:09)
[2018-03-05] MEDS: LACTOBACILLUS RHAMNOSUS GG 1 CAPSULE. PO ×2 (08:10→20:32)
[2018-03-05] MEDS: COLCHICINE 0.6 MG TABLET PO (08:10)
[2018-03-05] MEDS: ALLOPURINOL 100 MG TABLET. PO (08:11)
[2018-03-05] MEDS: risperiDONE 0.25 MG TABLET. PO ×2 (08:14→20:32)
[2018-03-05] MEDS: NYSTATIN TOPICAL POWDER 15GM BOTTLE. TP ×2 (08:15→20:32)
[2018-03-06] MEDS: IPRATRPIUM/ALBUTEROL 0.5/2.5MG 3 ML NEBU. NEB ×2 (08:00→11:48)
[2018-03-06] MEDS: BUDESONIDE 0.5 MG/2 ML NEBU. NEB (08:00)
[2018-03-06] MEDS: risperiDONE 0.25 MG TABLET. PO (09:26)
[2018-03-06] MEDS: COLCHICINE 0.6 MG TABLET PO (09:26)
[2018-03-06] MEDS: ALLOPURINOL 100 MG TABLET. PO (09:27)
[2018-03-06] MEDS: PANTOPRAZOLE 40 MG TABLET.DR. PO (09:27)
[2018-03-06] MEDS: LACTOBACILLUS RHAMNOSUS GG 1 CAPSULE. PO (09:27)
[2018-03-06] MEDS: NYSTATIN TOPICAL POWDER 15GM BOTTLE. TP (09:29)
[2018-03-06 11:59] LABS: ADD MAN DIFF? NO
[2018-03-06 12:16] LABS: BASO # 0.1 x10^3/uL (0.0-0.2); BASO % 1 % (0-3); EOS # 1.4 x10^3/uL (0.0-0.7); EOS % 10 % (0-3); HEMATOCRIT 31.4 % (39.0-53.0); HEMOGLOBIN 10.4 g/dL (13.0-17.5); LYMPH # 0.7 x10^3/uL (1.0-4.8); LYMPH % 5 % (24-48); MEAN CORPUSCULAR HEMOGLOBIN 33 pg (25-35); MEAN CORPUSCULAR HGB CONC 33 g/dL (31-37); MEAN CORPUSCULAR VOLUME 99 fL (79-100); MONO # 1.3 x10^3/uL (0.0-1.1); MONO % 9 % (0-9); NEUT # 10.4 x10^3uL (1.8-7.7); NEUT % 75 % (31-73); PLATELET COUNT 159 x10^3/uL (140-400); RED BLOOD COUNT 3.19 x10^6/uL (4.30-5.70); RED CELL DISTRIBUTION WIDTH 17.2 % (11.5-14.5); WHITE BLOOD COUNT 13.9 x10^3/uL (4.0-11.0)
== END 2018-03-06 16:00 | DRG 377 ==
LOC: 1 WEST ICU 02-28 09:50 → 5 NORTH 03-03 19:44 → ER 04:52 → 5 NORTH 05:00
PROVIDERS: Internal Medicine
PROC: 30233N1 Transfusion of Nonautologous Red Blood Cells into Peripheral Vein, Percutaneous Approach (ICD-10-PCS; principal; 2018-02-25)
PROC: 02H633Z Insertion of Infusion Device into Right Atrium, Percutaneous Approach (ICD-10-PCS; 2018-02-28)
DX: K57.91 Diverticulosis of intestine, part unspecified, without perforation or abscess with bleeding (principal); G93.41 Metabolic encephalopathy; N17.9 Acute kidney failure, unspecified; I13.0 Hypertensive heart and chronic kidney disease with heart failure and stage 1 through stage 4 chronic kidney disease, or unspecified chronic kidney disease; R57.9 Shock, unspecified; I16.0 Hypertensive urgency; D64.9 Anemia, unspecified; E78.5 Hyperlipidemia, unspecified; E83.42 Hypomagnesemia; E86.1 Hypovolemia; F03.90 Unspecified dementia, unspecified severity, without behavioral disturbance, psychotic disturbance, mood disturbance, and anxiety; G89.29 Other chronic pain; I25.10 Atherosclerotic heart disease of native coronary artery without angina pectoris; I25.2 Old myocardial infarction; Z88.0 Allergy status to penicillin; I50.9 Heart failure, unspecified; K21.9 Gastro-esophageal reflux disease without esophagitis; K59.00 Constipation, unspecified; E66.9 Obesity, unspecified; F32.9 Major depressive disorder, single episode, unspecified; M10.9 Gout, unspecified; M19.90 Unspecified osteoarthritis, unspecified site; N18.9 Chronic kidney disease, unspecified; N40.0 Benign prostatic hyperplasia without lower urinary tract symptoms; S01.81XA Laceration without foreign body of other part of head, initial encounter; Z82.49 Family history of ischemic heart disease and other diseases of the circulatory system; Z86.73 Personal history of transient ischemic attack (TIA), and cerebral infarction without residual deficits; Z90.49 Acquired absence of other specified parts of digestive tract; Z95.0 Presence of cardiac pacemaker; Z87.01 Personal history of pneumonia (recurrent); Z68.39 Body mass index [BMI] 39.0-39.9, adult
CPT/HCPCS: 36415; 70450; 71045; 73562; 78278; 80048; 80053; 80202; 81001; 82274; 82962; 83605; 83735; 84484; 85007; 85014; 85018; 85025; 85027; 85610; 85730; 86850; 86900; 86901; 86920; 87040; 87086; 87641; 93005; 94640; 94760; 96374; 97110-GO; 97110-GP; 97116-GP; 97162-GP; 97164-GP; 97166-GO; 97168-GO; 97530-GP; 97535-GO; 99285; 99285-25; A9560; C9113; J1630; J1956; J3370; J3475; J7030; J7620; J7626; P9016

== ENCOUNTER 2018-10-14 18:41 | Inpatient (IN) | payer OTHER ==
[~2018-10-14] VITALS: Ht 12.7 cm; Wt 95.3 kg
[~2018-10-14 18:41] MED LIST: ACET325T9 PO; ALLO100T PO; ASPI-612 PO; BUDE0.5A NEB; CLOP75TA PO; COLC0.6T34 PO; FAMO20TA5 PO; FURO-68 PO; FURO40TA4 PO; HYDR-2678 PO; IPRA3AMP29 NEB; LISI-130 PO; LISI10TA2 PO; LOSA-73 PO; METO25TA4 PO; METO50TA6 PO; OMEP20CA10 PO; POLY17PO29 PO; POTA20TA12 PO; PRED-220 PO; SPIR25TA5 PO; SPIR50TA4 PO; TAMS0.4C2 PO; VERA240C2 PO
[2018-10-14] MEDS ORDERED: fentaNYL PF VIAL 100 MCG/2 ML VIAL IV ONE (19:00)
[2018-10-14] MEDS ORDERED: LABETALOL 20 MG/4 ML DISP.SYRIN. IVP ONE (19:00)
[2018-10-14] MEDS ORDERED: ONDANSETRON PF 4 MG/2 ML VIAL. IV ONE (19:00)
[2018-10-14 19:41] LABS: CALCIUM 9.6 mg/dL (8.5-10.1); CREATININE 1.5 mg/dL (0.7-1.3); GFR 54.2; POTASSIUM 4.5 mmol/L (3.5-5.1)
[2018-10-14 19:47] LABS: ALBUMIN 3.3 g/dL (3.4-5.0); ALBUMIN/GLOBULIN RATIO 0.6 (1.0-1.7); TOTAL BILIRUBIN 1.3 mg/dL (0.2-1.0); TOTAL PROTEIN 8.8 g/dL (6.4-8.2)
[2018-10-14] MEDS ORDERED: CONTRAST GIVEN. MC PRN (20:00)
[2018-10-14] MEDS ORDERED: IOHEXOL 300 MG/ML 100ML VIAL. IV ONE (20:00)
[2018-10-14 20:05] LABS: BASO % 0 % (0-3); EOS % 0 % (0-3); HEMATOCRIT 41.1 % (39.0-53.0); HEMOGLOBIN 12.7 g/dL (13.0-17.5); LYMPH # 0.2 x10^3/uL (1.0-4.8); LYMPH % 3 % (24-48); MEAN CORPUSCULAR HEMOGLOBIN 25 pg (25-35); MEAN CORPUSCULAR HGB CONC 31 g/dL (31-37); MEAN CORPUSCULAR VOLUME 82 fL (79-100); MONO # 0.5 x10^3/uL (0.0-1.1); MONO % 8 % (0-9); NEUT # 5.6 x10^3uL (1.8-7.7); NEUT % 89 % (31-73); PLATELET COUNT 156 x10^3/uL (140-400); RED BLOOD COUNT 4.99 x10^6/uL (4.30-5.70); RED CELL DISTRIBUTION WIDTH 19.9 % (11.5-14.5); WHITE BLOOD COUNT 6.4 x10^3/uL (4.0-11.0)
[2018-10-14 20:14] LABS: PROTHROMBIN TIME PATIENT 15.7 SEC (11.7-14.0)
[2018-10-14 20:28] LABS: % BANDS 1 % (0-9); % LYMPHS 2 % (24-48); % MONOS 5 % (0-10); % SEGS 92 % (35-66); ANISOCYTOSIS SLIGHT; PLT ESTIMATE ADEQUATE (ADEQUATE); POIKILOCYTOSIS SLIGHT
[2018-10-14 20:29] LABS: SCHISTOCYTES OCC
--- NOTE | 2018-10-14 20:33 | RAD ---
Examination: CT HEAD WO CONTRAST History: headache bp 230 Comparison/Correlation: 02/24/2018 CT head without contrast Findings: Axial images of the head were obtained without contrast. Atrophy is present. Advanced chronic ischemic changes white matter noted. No midline shift or mass effect. Chronic ischemic changes white matter noted. Chronic paranasal sinusitis is present. Impression: No intracranial hemorrhage. PQRS Compliance Statement: One or more of the following individualized dose reduction techniques were utilized for this examination: 1. Automated exposure control 2. Adjustment of the mA and/or kV according to patient size 3. Use of iterative reconstruction technique Electronically signed by: Jesse Pina MD (10/14/2018 8:30 PM) [facility]
--- NOTE | 2018-10-14 20:48 | RAD ---
Examination: CT ABD PELV W/ IV CONTRST ONLY History: abdo pain with vomiting. OMNI 300, 60ml Comparison/Correlation: 02/20/2018 CT abdomen and pelvis without contrast Findings: Axial images of the abdomen and pelvis were obtained following IV contrast. Sagittal and coronal reformatted images were provided. Small bilateral pleural effusions are present greater on the left. Minimal adjacent atelectasis. Pacemaker lead is visualized. Coronary arterial calcifications noted. Nodular contour of the liver is noted. Liver is small in size. Calculus involvement of the gallbladder neck noted. There are at least 2 calculi suggested and these measure less than 0.6 cm diameter. No biliary dilatation. No pericholecystic fluid. Significant laxity of the lower abdominal wall is noted. Lower abdominal pannus noted. Multiple distended small bowel loops are present with transition noted in the within the low abdomen tenderness. Diverticulosis of the colon noted. Suture material involves the ascending colon. No inflammatory change about the ascending colon. Renal cysts are present. Minimal ascites noted within lower abdominal pannus. Urinary bladder is unremarkable. Significant L4-5 disc space narrowing is present. Impression: Significant distention of small bowel loops with transition within the low abdominal pannus. Small bowel obstruction. Small pleural effusions with minimal adjacent atelectasis. Hepatic cirrhosis or other fibrotic process. Diverticulosis. PQRS Compliance Statement: One or more of the following individualized dose reduction techniques were utilized for this examination: 1. Automated exposure control 2. Adjustment of the mA and/or kV according to patient size 3. Use of iterative reconstruction technique Electronically signed by: Jesse Pina MD (10/14/2018 8:45 PM) [facility]
[2018-10-14 20:52] LABS: BILIRUBIN,URINE SMALL (NEG); CLARITY,URINE CLOUDY; COLOR,URINE AMBER; NITRITE,URINE NEGATIVE (NEG); PROTEIN,URINE >=300 mg/dL (NEG-TRACE)
[2018-10-14 20:56] LABS: SQUAMOUS EPITHELIAL CELL,UR FEW /LPF
[2018-10-14 20:57] LABS: BACTERIA,URINE 0 /HPF (0-FEW); HYALINE CASTS, URINE FEW /HPF; RBC,URINE 0 /HPF (0-2)
--- NOTE | 2018-10-14 21:42 | RAD ---
Examination: PORTABLE CHEST 1V History: AMS Comparison/Correlation: 01/29/2018 portable chest x-ray exam Findings: Portable upright frontal view of the chest was obtained. Single lead left-sided pacemaker is present. Heart size is somewhat enlarged. Evaluation of the retrocardiac region is limited due to cardiomegaly and underpenetrated technique as well as patient body habitus. Pulmonary vasculature is congested. No pneumothorax. Bilateral glenohumeral joint degenerative changes are present. Small left pleural effusion is questioned. Impression: Mild congestive heart failure. No definite infiltrate. Evaluation is limited. Consider lateral view for more complete assessment of the lung bases if clinically needed. Electronically signed by: Jesse Pina MD (10/14/2018 9:39 PM) [facility]
[2018-10-14] MEDS ORDERED: MORPHINE SULFATE 4 MG/ML VIAL. IV PRN (22:15)
[2018-10-14] MEDS ORDERED: ONDANSETRON PF 4 MG/2 ML VIAL. IV PRN (22:15)
[2018-10-14] MEDS ORDERED: NITROGLYCERIN OINT 1 GM PACKET. TP ONE (22:30)
--- NOTE | 2018-10-14 23:41 | PHYS DOC ---
Past Medical History Past Medical History: A-Fib, Anemia, Arthritis, Arrhythmia, CHF, COPD, GERD, High Cholesterol, Hypertension, TIA, Other Additional Past Medical Histor: H/A, OBESITY, FALSE PASS, BPH,AMS,LYMPHEDEMA,MDD, PSYCHOSIS,NSTEMI,DYSPHAGIA Past Surgical History: Appendectomy, Pacemaker, Other Additional Past Surgical Histo: mass removed from abdomen Alcohol Use: None Drug Use: None Adult General Chief Complaint Chief Complaint: HYPERTENSION HPI HPI Patient is a 83 year old male brought in by AMBULANCE from a halfway with vomiting 2 days as well as elevated blood pressure. He has been vomiting complaining of diffuse abdominal pain for 2 days he has not been taking able to take his blood pressure medication as such as pressure was in the 220s medics gave Nitropaste it stayed up he was also complaining of headache denied chest pain currently he said his headache is a little bit better than it was before. Symptoms are moderate slowly worsening with time Review of Systems Review of Systems Constitutional: Denies fever or chills [] Eyes: Denies change in visual acuity, redness, or eye pain [] Cardiovascular: No additional information not addressed in HPI [] GI: : Denies dysuria or hematuria [] Integument: Denies rash or skin lesions [] Neurologic: Deniesocal weakness or sensory changes [] Endocrine: Denies polyuria or polydipsia [] All other systems were reviewed and found to be within normal limits, except as documented in this note. Current Medications Current Medications Current Medications Medications (Trade) Dose Ordered Sig/Katrina Start Time Stop Time Status Last Admin Dose Admin Fentanyl Citrate (Fentanyl 2ml Vial) 50 mcg 1X ONCE 10/14/18 19:00 10/14/18 19:05 DC 10/14/18 19:21 50 MCG Info (CONTRAST GIVEN -- Rx MONITORING) 1 each PRN DAILY PRN 10/14/18 20:00 10/16/18 19:59 Iohexol (Omnipaque 300 Mg/ml) 60 ml 1X ONCE 10/14/18 20:00 10/14/18 20:01 DC 10/14/18 20:08 60 ML Labetalol HCl (Normodyne Iv Push) 20 mg 1X ONCE 10/14/18 19:00 10/14/18 19:05 DC 10/14/18 19:26 20 MG Ondansetron HCl (Zofran) 4 mg 1X ONCE 10/14/18 19:00 10/14/18 19:05 DC 10/14/18 19:13 4 MG Allergies Allergies Allergies Coded Allergies Type Severity Reaction Last Updated Verified Penicillins Allergy Intermediate Itching 03/06/16 Yes Physical Exam Physical Exam Constitutional: Well developed, well nourished, no acute distress, non-toxic appearance. [] HENT: Normocephalic, atraumatic, bilateral external ears normal, oropharynx moist, no oral exudates, nose normal. [] Eyes: PERRLA, EOMI, conjunctiva normal, no discharge. [] Neck: Normal range of motion, no tenderness, supple, no stridor. [] Cardiovascular:Heart rate regular rhythm, 2/6 systolic ejection murmur noted] Lungs & Thorax: Decreased breath sounds bilateral lung bases Abdomen: Soft tender to palpation is noted diffusely but greater on the right there is an abnormal shape to his abdominal wall. There is a what initially felt to be a ventral hernia that I was able to reduce fairly easily at least partially there still remained abnormal shape of the abdominal wall however so it was difficult to tell exactly Skin: Warm, dry, no erythema, no rash. [] Back: No tenderness, no CVA tenderness. [] Extremities: No tenderness, no cyanosis, no clubbing, ROM intact, chronic appearing lower extremity edema bilaterally Neurologic: Alert and oriented X 3, normal motor function, normal sensory function, no focal deficits noted. [] Psychologic: Affect normal, judgement normal, mood normal. [] Current Patient Data Vital Signs Vital Signs Date Time Temp Pulse Resp B/P (MAP) Pulse Ox O2 Delivery O2 Flow Rate FiO2 10/14/18 19:26 75 241/129 10/14/18 19:21 18 96 Room Air 10/14/18 18:41 99.2 99.2 Lab Values Laboratory Tests Test 10/14/18 19:17 10/14/18 19:55 10/14/18 20:40 Sodium Level 138 mmol/L (136-145) Potassium Level 4.5 mmol/L (3.5-5.1) Chloride Level 100 mmol/L (98-107) Carbon Dioxide Level 29 mmol/L (21-32) Anion Gap 9 (6-14) Blood Urea Nitrogen 16 mg/dL (8-26) Creatinine 1.5 mg/dL (0.7-1.3) H Estimated GFR (Cockcroft-Gault) 54.2 BUN/Creatinine Ratio 11 (6-20) Glucose Level 120 mg/dL (70-99) H Lactic Acid Level 1.5 mmol/L (0.4-2.0) Calcium Level 9.6 mg/dL (8.5-10.1) Total Bilirubin 1.3 mg/dL (0.2-1.0) H Aspartate Amino Transferase (AST) 15 U/L (15-37) Alanine Aminotransferase (ALT) 10 U/L (16-63) L Alkaline Phosphatase 154 U/L (46-116) H Troponin I Quantitative 0.108 ng/mL (0.000-0.055) SK-Pcy-Q-Type Natriuretic Peptide 8198 pg/mL (0-449) H Total Protein 8.8 g/dL (6.4-8.2) H Albumin 3.3 g/dL (3.4-5.0) L Albumin/Globulin Ratio 0.6 (1.0-1.7) L Lipase 33 U/L (73-393) L White Blood Count 6.4 x10^3/uL (4.0-11.0) Red Blood Count 4.99 x10^6/uL (4.30-5.70) Hemoglobin 12.7 g/dL (13.0-17.5) L Hematocrit 41.1 % (39.0-53.0) Mean Corpuscular Volume 82 fL (79-100) Mean Corpuscular Hemoglobin 25 pg (25-35) Mean Corpuscular Hemoglobin Concent 31 g/dL (31-37) Red Cell Distribution Width 19.9 % (11.5-14.5) H Platelet Count 156 x10^3/uL (140-400) Neutrophils (%) (Auto) 89 % (31-73) H Lymphocytes (%) (Auto) 3 % (24-48) L Monocytes (%) (Auto) 8 % (0-9) Eosinophils (%) (Auto) 0 % (0-3) Basophils (%) (Auto) 0 % (0-3) Neutrophils # (Auto) 5.6 x10^3uL (1.8-7.7) Lymphocytes # (Auto) 0.2 x10^3/uL (1.0-4.8) L Monocytes # (Auto) 0.5 x10^3/uL (0.0-1.1) Eosinophils # (Auto) 0.0 x10^3/uL (0.0-0.7) Basophils # (Auto) 0.0 x10^3/uL (0.0-0.2) Segmented Neutrophils % 92 % (35-66) H Band Neutrophils % 1 % (0-9) Lymphocytes % 2 % (24-48) L Monocytes % 5 % (0-10) Platelet Estimate Adequate (ADEQUATE) Poikilocytosis Slight Anisocytosis Slight Schistocytes Occ Prothrombin Time 15.7 SEC (11.7-14.0) H Prothrombin Time INR 1.3 (0.8-1.1) H Urine Collection Type Unknown Urine Color Janelle Urine Clarity Cloudy Urine pH 6.0 Urine Specific [place] 1.025 Urine Protein >=300 mg/dL (NEG-TRACE) Urine Glucose (UA) Negative mg/dL (NEG) Urine Ketones (Stick) Trace mg/dL (NEG) Urine Blood Negative (NEG) Urine Nitrite Negative (NEG) Urine Bilirubin Small (NEG) Urine Urobilinogen Dipstick 1.0 mg/dL (0.2 mg/dL) Urine Leukocyte Esterase Negative (NEG) Urine RBC 0 /HPF (0-2) Urine WBC 5-10 /HPF (0-4) Urine Squamous Epithelial Cells Few /LPF Urine Bacteria 0 /HPF (0-FEW) Urine Hyaline Casts Few /HPF Urine Mucus Mod /LPF Laboratory Tests 10/14/18 19:55 Laboratory Tests 10/14/18 19:17 EKG EKG []EKG shows a paced rhythm rate of 72 in light of the paced rhythm no obvious acute ischemic changes were noted interpreted by me the time of encounter. Radiology/Procedures Radiology/Procedures [] Impressions: Impression: Significant distention of small bowel loops with transition within the low abdominal pannus. Small bowel obstruction. Small pleural effusions with minimal adjacent atelectasis. Hepatic cirrhosis or other fibrotic process. Diverticulosis. PQRS Compliance Statement: One or more of the following individualized dose reduction techniques were utilized for this examination: 1. Automated exposure control 2. Adjustment of the mA and/or kV according to patient size 3. Use of iterative reconstruction technique Electronically signed by: Jesse Pina MD (10/14/2018 8:45 PM) [facility] Course & Med Decision Making Course & Med Decision Making Pertinent Labs and Imaging studies reviewed. (See chart for details) []83-year-old male with multiple medical problems as noted above cardiac hypertension presenting with abdominal pain and vomiting found to have a bowel obstruction his blood pressure was high because he has not been keeping his meds down. We gave blood pressure medication the emergency room that did improve that somewhat the patient did not throw up in the ER. The troponin leak is probably related to the blood pressure. I spoke with Dr. HUNT from general surgery review the CT scan and the clinical picture I felt that I was able to get at least some reduction of was either ventral hernia or this abnormal shaped pannus, and on reevaluation the emergency room the patient actually said his abdominal pain was improving somewhat. In light of that and the fact that he has no white count and his pain is improving we have opted to treat him conservatively he would be admitted to the medical service. I did speak with Dr. Segura as well plan to admit pain control BP control gentle hydration etc. Family is aware of the plan and they're comfortable with it. Dragon Disclaimer Dragon Disclaimer This electronic medical record was generated, in whole or in part, using a voice recognition dictation system. Departure Departure Impression: Primary Impression: SBO (small bowel obstruction) Additional Impression: Hypertensive urgency Disposition: 09 ADMITTED INPATIENT Admitting Physician: Adrien Peters Condition: STABLE Referrals: MIKE SMITH MD (PCP) Problem Qualifiers FLORIN GARCIA MD Oct 14, 2018 23:41
[2018-10-15] MEDS: IV NORMAL SALINE 1000ML BAG 1,000 ML IV SCH ×3 (00:46→20:40)
--- NOTE | 2018-10-15 02:09 | NUR ---
Patient adamantly refuses to have serial troponin drawn. Patient stated he will leave this hospital and go to another. Family member at bedside expressed to patient it is hard to get sleep here and asked patient if was going to allow blood draw. Patient stated NO.
[2018-10-15 03:00] VITALS: BP 191/106
[2018-10-15] MEDS: LABETALOL 20 MG/4 ML DISP.SYRIN. IVP PRN (03:39)
[2018-10-15] MEDS ORDERED: POTA20TA82 PO (06:49)
[2018-10-15 07:00] VITALS: BP 128/65
[2018-10-15] MEDS ORDERED: FUROSEMIDE 20 MG TABLET PO SCH (09:00)
[2018-10-15] MEDS: NYSTATIN TOPICAL POWDER 15GM BOTTLE. TP SCH ×2 (09:04→20:41)
--- NOTE | 2018-10-15 09:37 | PDOC2 ---
CARLOS MANUEL ALFREDO [employer] SUPERVISOR 10/15/18 0937: CONSULT Date of Consult Date of Consult DATE: 10/15/18 TIME: 09:33 Reason for Consult Reason for Consult: SBO Referring Physician Referring Physician: ER Identification/Chief Complaint Chief Complaint abdominal pain Source Source: Chart review, Patient History of Present Illness Reason for Visit: 2 days of vomiting and abdominal pain. Pt is a very poor historian. Can not tell me when last BM was. Unsure if any flatus now. Reports now no abdominal pain. Wants to be discharged. Hx of abdominal surgery as a teenager, can not tell me what was done, Past Medical History Cardiovascular: CAD, CHF, HTN, Hyperlipidemia, Other Pulmonary: COPD, Pneumonia GI: GERD, Other Heme/Onc: Anemia NOS Psych: Depression, Other Musculoskeletal: Osteoarthritis, Weakness Rheumatologic: Other Renal/: Chronic renal insuff, Benign prostatic enlarg. Past Surgical History Past Surgical History: Other (abdominal surgery) Family History Family History: Heart Disease, Hypertension Social History ALCOHOL: none Drugs: None Current Medications Current Medications Current Medications Labetalol HCl (Normodyne Iv Push) 20 mg 1X ONCE IVP Last administered on at 19:26; Start 10/14/18 at 19:00; Stop 10/14/18 at 19:05; Status DC Ondansetron HCl (Zofran) 4 mg 1X ONCE IV Last administered on 10/14/18at 19:13 ; Start 10/14/18 at 19:00; Stop 10/14/18 at 19:05; Status DC Fentanyl Citrate (Fentanyl 2ml Vial) 50 mcg 1X ONCE IV Last administered on at 19:21; Start 10/14/18 at 19:00; Stop 10/14/18 at 19:05; Status DC Iohexol (Omnipaque 300 Mg/ml) 60 ml 1X ONCE IV Last administered on 10/14/18at 20:08; Start 10/14/18 at 20:00; Stop 10/14/18 at 20:01; Status DC Info (CONTRAST GIVEN -- Rx MONITORING) 1 each PRN DAILY PRN MC SEE COMMENTS; Start 10/14/18 at 20:00; Stop 10/16/18 at 19:59 Ondansetron HCl (Zofran) 4 mg PRN Q8HRS PRN IV NAUSEA/VOMITING 1ST CHOICE Last administered on 10/14/18at 22:31; Start 10/14/18 at 22:15; Stop 10/15/18 at 22:14 Morphine Sulfate (Morphine Sulfate) 4 mg PRN Q2HR PRN IV SEVERE PAIN; Start at 22:15; Stop 10/15/18 at 22:14 Sodium Chloride 1,000 ml @ 100 mls/hr Q10H IV Last administered on 10/15/18at 00:46; Start 10/14/18 at 22:30; Stop 10/15/18 at 22:29 Nitroglycerin (Nitro-Bid Oint) 1 inch 1X ONCE TP Last administered on at 22:42; Start 10/14/18 at 22:30; Stop 10/14/18 at 22:31; Status DC Labetalol HCl (Normodyne Iv Push) 20 mg PRN Q2HR PRN IVP HYPERTENSION, SEE COMMENTS Last administered on 10/15/18at 03:39; Start 10/14/18 at 23:00 Nystatin (Nystop) 1 amrik BID TP Last administered on 10/15/18at 09:04; Start at 09:00 Furosemide (Lasix) 20 mg DAILY PO ; Start 10/15/18 at 09:00; Stop 10/15/18 at 09 :00; Status DC Active Scripts Active Cozaar (Losartan Potassium) 50 Mg Tablet 50 Mg PO DAILY 30 Days Prednisone (Prednisone) 10 Mg Tablet 10 Mg PO UD Take 3 tablets by mouth twice a day for 3 days, then take 2 tablets by mouth twice a day for 3 days, then take 1 tablet by mouth twice a day for 3 days, then take 1 tablet by mouth daily x 3 days, then stop. Allopurinol 100 Mg Tablet 1 Tab PO DAILY Colcrys (Colchicine) 0.6 Mg Tablet 0.6 Mg PO DAILY 30 Days Budesonide 0.5 Mg/2 Ml Ampul.neb 0.5 Mg NEB RTBID 30 Days Aspirin Ec (Aspirin) 81 Mg Tablet.dr 81 Mg PO DAILYWBKFT 30 Days Duoneb 0.5-3(2.5) Mg/3 Ml (Albuterol/Ipratropium) 3 Ml Ampul.neb 3 Ml NEB RTQID 30 Days Metoprolol Tartrate 50 Mg Tablet 2 Tab PO BID 30 Days Reported Potassium Chloride 20 Meq Tablet.er 20 Meq PO DAILY Miralax (Polyethylene Glycol 3350) 17 Gm Powd.pack 1 Packet PO PRN DAILY PRN Lortab 5-325 mg Tablet (Hydrocodone/Acetaminophen) 1 Each Tablet 1 Tab PO PRN Q4HRS PRN Tylenol (Acetaminophen) 325 Mg Tablet 1 Tab PO PRN Q6HRS PRN Spironolactone 25 Mg Tablet 1 Tab PO BID Clopidogrel (Clopidogrel Bisulfate) 75 Mg Tablet 1 Tab PO DAILY Famotidine 20 Mg Tablet 20 Mg PO HS Tamsulosin Hcl 0.4 Mg Cap.er.24h 0.4 Mg PO DAILY Allergies Allergies: Coded Allergies: Penicillins (Verified Allergy, Intermediate, Itching, 03/06/16) ROS General: No: Chills, Other (fevers ) PSYCHOLOGICAL ROS: No: Anxiety, Depression Eyes: No Blurry vision, No Double vision HEENT: No: Heacaches, Sore Throat Hematological and Lymphatic: YES: Bleeding Problems; No: Blood Clots Respiratory: No: Cough, Shortness of breath Cardiovascular: No Chest Pain, No Palpitations Gastrointestinal: Yes Other (see hpi) Genitourinary: No Dysuria, No Hematuria Neurological: No Confusion, No Numbness/Tingling Skin: No Pruritus, No Rash Physical Exam General: Alert, Cooperative, No acute distress HEENT: PERRLA, Mucous membr. moist/pink Lungs: Clear to auscultation, Normal air movement Heart: Regular rate, Normal S1, Normal S2 Abdomen: Soft, Other (ND, NTTP, midline scar) Skin: No rashes, No breakdown Neuro: Normal speech, Sensation intact Psych/Mental Status: Mental status NL, Mood NL MUSCULOSKELETAL: No deformity, No swelling Vitals VITALS Vital Signs Date Time Temp Pulse Resp B/P (MAP) Pulse Ox O2 Delivery O2 Flow Rate FiO2 10/15/18 08:00 Room Air 10/15/18 07:00 98.2 70 17 128/65 (86) 97 98.2 Labs Labs Laboratory Tests Test 10/14/18 19:17 10/14/18 19:55 10/14/18 20:40 10/15/18 06:00 Sodium Level 138 mmol/L (136-145) Potassium Level 4.5 mmol/L (3.5-5.1) Chloride Level 100 mmol/L (98-107) Carbon Dioxide Level 29 mmol/L (21-32) Anion Gap 9 (6-14) Blood Urea Nitrogen 16 mg/dL (8-26) Creatinine 1.5 mg/dL (0.7-1.3) Estimated GFR (Cockcroft-Gault) 54.2 BUN/Creatinine Ratio 11 (6-20) Glucose Level 120 mg/dL (70-99) Lactic Acid Level 1.5 mmol/L (0.4-2.0) Calcium Level 9.6 mg/dL (8.5-10.1) Total Bilirubin 1.3 mg/dL (0.2-1.0) Aspartate Amino Transf (AST/SGOT) 15 U/L (15-37) Alanine Aminotransferase (ALT/SGPT) 10 U/L (16-63) Alkaline Phosphatase 154 U/L (46-116) Troponin I Quantitative 0.108 ng/mL (0.000-0.055) 0.097 ng/mL (0.000-0.055) IW-Fjg-T-Type Natriuretic Peptide 8198 pg/mL (0-449) Total Protein 8.8 g/dL (6.4-8.2) Albumin 3.3 g/dL (3.4-5.0) Albumin/Globulin Ratio 0.6 (1.0-1.7) Lipase 33 U/L (73-393) White Blood Count 6.4 x10^3/uL (4.0-11.0) Red Blood Count 4.99 x10^6/uL (4.30-5.70) Hemoglobin 12.7 g/dL (13.0-17.5) Hematocrit 41.1 % (39.0-53.0) Mean Corpuscular Volume 82 fL (79-100) Mean Corpuscular Hemoglobin 25 pg (25-35) Mean Corpuscular Hemoglobin Concent 31 g/dL (31-37) Red Cell Distribution Width 19.9 % (11.5-14.5) Platelet Count 156 x10^3/uL (140-400) Neutrophils (%) (Auto) 89 % (31-73) Lymphocytes (%) (Auto) 3 % (24-48) Monocytes (%) (Auto) 8 % (0-9) Eosinophils (%) (Auto) 0 % (0-3) Basophils (%) (Auto) 0 % (0-3) Neutrophils # (Auto) 5.6 x10^3uL (1.8-7.7) Lymphocytes # (Auto) 0.2 x10^3/uL (1.0-4.8) Monocytes # (Auto) 0.5 x10^3/uL (0.0-1.1) Eosinophils # (Auto) 0.0 x10^3/uL (0.0-0.7) Basophils # (Auto) 0.0 x10^3/uL (0.0-0.2) Segmented Neutrophils % 92 % (35-66) Band Neutrophils % 1 % (0-9) Lymphocytes % 2 % (24-48) Monocytes % 5 % (0-10) Platelet Estimate Adequate (ADEQUATE) Poikilocytosis Slight Anisocytosis Slight Schistocytes Occ Prothrombin Time 15.7 SEC (11.7-14.0) Prothromb Time International Ratio 1.3 (0.8-1.1) Urine Collection Type Unknown Urine Color Janelle Urine Clarity Cloudy Urine pH 6.0 Urine Specific [place] 1.025 Urine Protein >=300 mg/dL (NEG-TRACE) Urine Glucose (UA) Negative mg/dL (NEG) Urine Ketones (Stick) Trace mg/dL (NEG) Urine Blood Negative (NEG) Urine Nitrite Negative (NEG) Urine Bilirubin Small (NEG) Urine Urobilinogen Dipstick 1.0 mg/dL (0.2 mg/dL) Urine Leukocyte Esterase Negative (NEG) Urine RBC 0 /HPF (0-2) Urine WBC 5-10 /HPF (0-4) Urine Squamous Epithelial Cells Few /LPF Urine Bacteria 0 /HPF (0-FEW) Urine Hyaline Casts Few /HPF Urine Mucus Mod /LPF Laboratory Tests Test 10/14/18 19:17 10/14/18 19:55 10/14/18 20:40 10/15/18 06:00 Sodium Level 138 mmol/L (136-145) Potassium Level 4.5 mmol/L (3.5-5.1) Chloride Level 100 mmol/L (98-107) Carbon Dioxide Level 29 mmol/L (21-32) Anion Gap 9 (6-14) Blood Urea Nitrogen 16 mg/dL (8-26) Creatinine 1.5 mg/dL (0.7-1.3) Estimated GFR (Cockcroft-Gault) 54.2 BUN/Creatinine Ratio 11 (6-20) Glucose Level 120 mg/dL (70-99) Lactic Acid Level 1.5 mmol/L (0.4-2.0) Calcium Level 9.6 mg/dL (8.5-10.1) Total Bilirubin 1.3 mg/dL (0.2-1.0) Aspartate Amino Transf (AST/SGOT) 15 U/L (15-37) Alanine Aminotransferase (ALT/SGPT) 10 U/L (16-63) Alkaline Phosphatase 154 U/L (46-116) Troponin I Quantitative 0.108 ng/mL (0.000-0.055) 0.097 ng/mL (0.000-0.055) WS-Mub-Q-Type Natriuretic Peptide 8198 pg/mL (0-449) Total Protein 8.8 g/dL (6.4-8.2) Albumin 3.3 g/dL (3.4-5.0) Albumin/Globulin Ratio 0.6 (1.0-1.7) Lipase 33 U/L (73-393) White Blood Count 6.4 x10^3/uL (4.0-11.0) Red Blood Count 4.99 x10^6/uL (4.30-5.70) Hemoglobin 12.7 g/dL (13.0-17.5) Hematocrit 41.1 % (39.0-53.0) Mean Corpuscular Volume 82 fL (79-100) Mean Corpuscular Hemoglobin 25 pg (25-35) Mean Corpuscular Hemoglobin Concent 31 g/dL (31-37) Red Cell Distribution Width 19.9 % (11.5-14.5) Platelet Count 156 x10^3/uL (140-400) Neutrophils (%) (Auto) 89 % (31-73) Lymphocytes (%) (Auto) 3 % (24-48) Monocytes (%) (Auto) 8 % (0-9) Eosinophils (%) (Auto) 0 % (0-3) Basophils (%) (Auto) 0 % (0-3) Neutrophils # (Auto) 5.6 x10^3uL (1.8-7.7) Lymphocytes # (Auto) 0.2 x10^3/uL (1.0-4.8) Monocytes # (Auto) 0.5 x10^3/uL (0.0-1.1) Eosinophils # (Auto) 0.0 x10^3/uL (0.0-0.7) Basophils # (Auto) 0.0 x10^3/uL (0.0-0.2) Segmented Neutrophils % 92 % (35-66) Band Neutrophils % 1 % (0-9) Lymphocytes % 2 % (24-48) Monocytes % 5 % (0-10) Platelet Estimate Adequate (ADEQUATE) Poikilocytosis Slight Anisocytosis Slight Schistocytes Occ Prothrombin Time 15.7 SEC (11.7-14.0) Prothromb Time International Ratio 1.3 (0.8-1.1) Urine Collection Type Unknown Urine Color Janelle Urine Clarity Cloudy Urine pH 6.0 Urine Specific [place] 1.025 Urine Protein >=300 mg/dL (NEG-TRACE) Urine Glucose (UA) Negative mg/dL (NEG) Urine Ketones (Stick) Trace mg/dL (NEG) Urine Blood Negative (NEG) Urine Nitrite Negative (NEG) Urine Bilirubin Small (NEG) Urine Urobilinogen Dipstick 1.0 mg/dL (0.2 mg/dL) Urine Leukocyte Esterase Negative (NEG) Urine RBC 0 /HPF (0-2) Urine WBC 5-10 /HPF (0-4) Urine Squamous Epithelial Cells Few /LPF Urine Bacteria 0 /HPF (0-FEW) Urine Hyaline Casts Few /HPF Urine Mucus Mod /LPF Assessment/Plan Assessment/Plan sbo vs ileus--clinically improved bowel rest, will check xrays in AM multiple comorbidities NO HUNT MD 10/15/18 1627: CONSULT Assessment/Plan Assessment/Plan pt seen limited exam 09/29 bedside echo in progress denies further emesis belly soft for plain films in the AM Mr Demarco not happy he is spending the night will re-assess in the morning expectant treatment hoped for given his comorbidities will follow Thanks for consult CARLOS MANUEL ALFREDO APRN Oct 15, 2018 09:37 NO HUNT MD Oct 15, 2018 16:27
[2018-10-15 11:00] VITALS: BP 127/63
--- NOTE | 2018-10-15 11:44 | PDOC2 ---
YASHIRA SALMERON CHEMISTRY TECHNICAL OFFICER 10/15/18 1144: CARDIAC CONSULT DATE OF CONSULT Date of Consult DATE: 10/15/18 TIME: 11:04 REASON FOR CONSULT Reason for Consult: Hypertensive urgency REFERRING PHYSICIAN Referring Physician: Janeth SOURCE Source: Chart review, Patient HISTORY OF PRESENT ILLNESS HISTORY OF PRESENT ILLNESS This is an 83 yo male admitted for complains of vomiting. This has been going on for about 2 days at least and noted with his BP elevated. He has been having abdominal pain and upon further imaging has been noted with SBO via CT. No notable CP nor SOA. He is from [facility] and accdg to [facility]. It is unclear if he has been able to take or keep his medications lately with his vomiting spells. He is a poor historian and could not tell me specifics about his medical hx but presently he is laying flat with no distress and no further abd pain and no chest pain. PAST MEDICAL HISTORY Past Medical History Cardiovascular: CAD, CHF, HTN, Hyperlipidemia, SSS, syncope, bradycardia, AFIB , chronic leg edema, valvular insufficiency Pulmonary: COPD, Pneumonia, moderate to severe pulmonary HTN GI: GERD,diverticulosis, GI bleed Neruological: TIA, dementia Heme/Onc: Anemia NOS Psych: Depression Musculoskeletal: Osteoarthritis, Weakness, gout Rheumatologic: Other Renal/: CKD, BPH PAST SURGICAL HISTORY Past Surgical History: Pacemaker (Single chamber placed in 02/2016), Cholecystectomy, Other (abd mass removal) FAMILY HISTORY Family History: Heart Disease, Hypertension SOCIAL HISTORY Smoke: No ALCOHOL: none Drugs: None Lives: Assisted CURRENT MEDICATIONS CURRENT MEDICATIONS Current Medications Medications (Trade) Dose Ordered Sig/Katrina Route PRN Reason Start Time Stop Time Status Last Admin Dose Admin Labetalol HCl (Normodyne Iv Push) 20 mg 1X ONCE IVP 10/14/18 19:00 10/14/18 19:05 DC 10/14/18 19:26 Ondansetron HCl (Zofran) 4 mg 1X ONCE IV 10/14/18 19:00 10/14/18 19:05 DC 10/14/18 19:13 Fentanyl Citrate (Fentanyl 2ml Vial) 50 mcg 1X ONCE IV 10/14/18 19:00 10/14/18 19:05 DC 10/14/18 19:21 Iohexol (Omnipaque 300 Mg/ml) 60 ml 1X ONCE IV 10/14/18 20:00 10/14/18 20:01 DC 10/14/18 20:08 Ondansetron HCl (Zofran) 4 mg PRN Q8HRS PRN IV NAUSEA/VOMITING 1ST CHOICE 10/14/18 22:15 10/15/18 22:14 10/14/18 22:31 Sodium Chloride 1,000 ml @ 100 mls/hr Q10H IV 10/14/18 22:30 10/15/18 22:29 10/15/18 00:46 Nitroglycerin (Nitro-Bid Oint) 1 inch 1X ONCE TP 10/14/18 22:30 10/14/18 22:31 DC 10/14/18 22:42 Labetalol HCl (Normodyne Iv Push) 20 mg PRN Q2HR PRN IVP HYPERTENSION, SEE COMMENTS 10/14/18 23:00 10/15/18 03:39 Nystatin (Nystop) 1 amrik BID TP 10/15/18 09:00 10/15/18 09:04 ALLERGIES ALLERGIES: Coded Allergies: Penicillins (Verified Allergy, Intermediate, Itching, 03/06/16) ROS Review of System limited, poor historian PHYSICAL EXAM General: Alert, Cooperative, No acute distress HEENT: Atraumatic, Mucous membr. moist/pink Lungs: Other (diminished bases) Heart: Other (Vpaced with underlying afib) Abdomen: Soft (large pannus) Extremities: Other (1+ bilateral LE pitting edema) Skin: No breakdown, No significant lesion Neuro: Normal speech, Sensation intact Psych/Mental Status: Other (pleasant with periods of confusion) MUSCULOSKELETAL: Osteoarthritic changes both hands VITALS VITALS Vital Signs Date Time Temp Pulse Resp B/P (MAP) Pulse Ox O2 Delivery O2 Flow Rate FiO2 10/15/18 08:00 Room Air 10/15/18 07:00 98.2 70 17 128/65 (86) 97 98.2 LABS Lab: Laboratory Tests Test 10/14/18 19:17 10/14/18 19:55 10/14/18 20:40 10/15/18 06:00 Sodium Level 138 mmol/L (136-145) Potassium Level 4.5 mmol/L (3.5-5.1) Chloride Level 100 mmol/L (98-107) Carbon Dioxide Level 29 mmol/L (21-32) Anion Gap 9 (6-14) Blood Urea Nitrogen 16 mg/dL (8-26) Creatinine 1.5 mg/dL (0.7-1.3) Estimated GFR (Cockcroft-Gault) 54.2 BUN/Creatinine Ratio 11 (6-20) Glucose Level 120 mg/dL (70-99) Lactic Acid Level 1.5 mmol/L (0.4-2.0) Calcium Level 9.6 mg/dL (8.5-10.1) Total Bilirubin 1.3 mg/dL (0.2-1.0) Aspartate Amino Transf (AST/SGOT) 15 U/L (15-37) Alanine Aminotransferase (ALT/SGPT) 10 U/L (16-63) Alkaline Phosphatase 154 U/L (46-116) Troponin I Quantitative 0.108 ng/mL (0.000-0.055) 0.097 ng/mL (0.000-0.055) OF-Fmg-S-Type Natriuretic Peptide 8198 pg/mL (0-449) Total Protein 8.8 g/dL (6.4-8.2) Albumin 3.3 g/dL (3.4-5.0) Albumin/Globulin Ratio 0.6 (1.0-1.7) Lipase 33 U/L (73-393) White Blood Count 6.4 x10^3/uL (4.0-11.0) Red Blood Count 4.99 x10^6/uL (4.30-5.70) Hemoglobin 12.7 g/dL (13.0-17.5) Hematocrit 41.1 % (39.0-53.0) Mean Corpuscular Volume 82 fL (79-100) Mean Corpuscular Hemoglobin 25 pg (25-35) Mean Corpuscular Hemoglobin Concent 31 g/dL (31-37) Red Cell Distribution Width 19.9 % (11.5-14.5) Platelet Count 156 x10^3/uL (140-400) Neutrophils (%) (Auto) 89 % (31-73) Lymphocytes (%) (Auto) 3 % (24-48) Monocytes (%) (Auto) 8 % (0-9) Eosinophils (%) (Auto) 0 % (0-3) Basophils (%) (Auto) 0 % (0-3) Neutrophils # (Auto) 5.6 x10^3uL (1.8-7.7) Lymphocytes # (Auto) 0.2 x10^3/uL (1.0-4.8) Monocytes # (Auto) 0.5 x10^3/uL (0.0-1.1) Eosinophils # (Auto) 0.0 x10^3/uL (0.0-0.7) Basophils # (Auto) 0.0 x10^3/uL (0.0-0.2) Segmented Neutrophils % 92 % (35-66) Band Neutrophils % 1 % (0-9) Lymphocytes % 2 % (24-48) Monocytes % 5 % (0-10) Platelet Estimate Adequate (ADEQUATE) Poikilocytosis Slight Anisocytosis Slight Schistocytes Occ Prothrombin Time 15.7 SEC (11.7-14.0) Prothromb Time International Ratio 1.3 (0.8-1.1) Urine Collection Type Unknown Urine Color Janelle Urine Clarity Cloudy Urine pH 6.0 Urine Specific [place] 1.025 Urine Protein >=300 mg/dL (NEG-TRACE) Urine Glucose (UA) Negative mg/dL (NEG) Urine Ketones (Stick) Trace mg/dL (NEG) Urine Blood Negative (NEG) Urine Nitrite Negative (NEG) Urine Bilirubin Small (NEG) Urine Urobilinogen Dipstick 1.0 mg/dL (0.2 mg/dL) Urine Leukocyte Esterase Negative (NEG) Urine RBC 0 /HPF (0-2) Urine WBC 5-10 /HPF (0-4) Urine Squamous Epithelial Cells Few /LPF Urine Bacteria 0 /HPF (0-FEW) Urine Hyaline Casts Few /HPF Urine Mucus Mod /LPF ECHOCARDIOGRAM ECHOCARDIOGRAM <Conclusion> Left ventricle systolic function is low normal. The Ejection Fraction is 55%. There is mild concentric left ventricular hypertrophy. Transmitral Doppler flow pattern is Grade II-pseudonormal filling dynamics. The left atrium is mildly dilated. The right atrium is mildly dilated. A pacemaker is seen in the right atrium consistent with history. The aortic valve is not well visualized. Doppler and Color-flow revealed mild mitral regurgitation. Doppler and Color Flow revealed moderate tricuspid regurgitation. There is moderate-severe pulmonary hypertension. The PA pressure was estimated at 59 mmHg. The pulmonic valve is not well visualized. There is no evidence of significant pericardial effusion. DATE: 02/22/18 1627 ASSESSMENT/PLAN ASSESSMENT/PLAN 1. Abd pain/vomiting: CT noted with SBO, general surgery following 2. Accelerated HTN: due to GI symptoms and possibly misshed meds from vomiting. BP better after labetolol 3. Known COPD with moderate to severe pulmonary HTN 4. CKD: possible stage 3. Cr at 1.5 stable by comparison 5. Chronic diastolic CHF: small bilateral pleural effusion otherwise clinically compensated 6. elevated troponin: Peaked at 0.1, Retrieving EKG. suspect demand mediated, type 2, multifactorial as above. 7. Hx of CAD: unknown past imaging. No cardiac symptoms. 8. PPM in situ: placed due to SSS ([place]) 9. Hx of AFIB; appears chronic. V paced with underlying AFIB. 10. Possible cirrhotic features: per CT. Defer to PCP 11. Morbid obesity/debility/WC bound/dementia: high risk for falls, Recommendations 1. Will check Device for any associated dysrhythmias 2. Takes metoprolol PO. Will place on metoprolol IV routinely for now while NPO. Continue with PRN labetolol. 3. Cardiac mcgrath, will maintain conservative measures with noted multiple comorbid conditions, age, and significant debility 4. Resume antiplatelets and BP meds when able to take PO. ASA for stroke prevention ELAINE MOREL MD 10/15/18 5395: CARDIAC CONSULT ASSESSMENT/PLAN ASSESSMENT/PLAN Patient seen and examined. Agree with above nurse practitioner note. Continue supportive care. No further cardiac interventions necessary at this time. Restart by mouth medications when able to take oral intake. Echo Cardigan gram grossly unremarkable. YASHIRA SALMERON APRN Oct 15, 2018 11:44 ELAINE MOREL MD Oct 15, 2018 17:44
[2018-10-15] MEDS: METOPROLOL TARTRATE 5 MG/5 ML VIAL. IVP SCH ×2 (12:00→17:36)
--- NOTE | 2018-10-15 12:16 | HP ---
ADMIT DATE: 10/15/2018 CHIEF COMPLAINT: Hypertension. HISTORY OF PRESENT ILLNESS: The patient is a pleasant 83-year-old male well known to our service. He was brought in by ambulance from a group home. He has been vomiting for a couple of days, complains of abdominal pain for 2 days as well. He is unable to take his medications because of this and now, his pressure is in the 220s. He was brought in and given some nitro paste that is helping a little bit. Now, he has a headache. I discussed the case with ER physician. The patient also has a small-bowel obstruction on imaging. We are going to admit the patient and consult Cardiology and General Surgery. PAST MEDICAL HISTORY: Obesity, hypertension, chronic edema, AFib, anemia, arrhythmia, CHF, COPD, GERD, hyperlipidemia, hypertension, TIAs, headaches, hard of hearing, BPH, lymphedema, psychosis, myocardial infarction, dysphagia, appendectomy, pacemaker, abdominal mass removed. ALLERGIES: PENICILLIN. FAMILY HISTORY: Hypertension. SOCIAL HISTORY: He quit smoking, no drinking or drugs. He lives in a group home. MEDICATIONS: Reviewed. He is on 16 including DuoNeb, Flomax, Plavix, metoprolol, Cozaar, spironolactone, aspirin, hydrocodone, Tylenol, potassium, MiraLax, Pepcid, prednisone, allopurinol, colchicine. REVIEW OF SYSTEMS: GENERAL: No history of weight change, weakness or fevers. SKIN: No bruising, hair changes or rashes. EYES: No blurred, double or loss of vision. NOSE AND THROAT: No history of nosebleeds, hoarseness or sore throat. HEART: No history of palpitations, chest pain or shortness of breath on exertion. LUNGS: Denies cough, hemoptysis, wheezing or shortness of breath. GASTROINTESTINAL: He complains of abdominal pain. GENITOURINARY: No history of frequency, urgency, hesitancy or nocturia. NEUROLOGIC: Denies history of numbness, tingling, tremor or weakness. PSYCHIATRIC: No history of panic, anxiety or depression. ENDOCRINE: No history of heat or cold intolerance, polyuria or polydipsia. EXTREMITIES: Denies muscle weakness, joint pain, pain on walking or stiffness. PHYSICAL EXAMINATION: VITAL SIGNS: Temperature 97, pulse 69, respirations 18, blood pressure down to 127/63. It was as high as 221/133 last night. HEART: Distant S1, S2. LUNGS: Clear. ABDOMEN: Soft and obese, distended. He has a large hernia in the right lower quadrant. EXTREMITIES: He has 2-3+ edema. He has got a lot of excoriations on the skin. ENDOCRINE: No thyromegaly. LYMPHATICS: No cervical nodes. HEMATOPOIETIC: No bruising. PSYCHIATRIC: He is stable. SKIN: He does have a rash on his abdomen. LABORATORY DATA: White count 6, hemoglobin 12, platelets 156. Electrolytes normal other than creatinine 1.5, glucose is 120. Troponin 0.108. INR is 1.3. ASSESSMENT AND PLAN: Small-bowel obstruction and elevated troponin, chronic renal insufficiency, anemia, and coagulopathy. The patient has been admitted. We consulted General Surgery and Cardiology and Nephrology. Gentle IV hydration, n.p.o., cardiac monitoring, serial enzymes, serial EKGs, full code. Deep vein thrombosis prophylaxis, nystatin powder to his rash. PRN nitro, p.r.n. Nina. NELI LUTZ DO DR: EBEN/jayme JOB#: [id number] / [id number]
--- NOTE | 2018-10-15 12:32 | NUR ---
SS following for discharge planning. SS reviewed pt chart. Pt is from home with spouse and currently on room air. No discharge needs noted at this time. SS will continue to follow for pending discharge needs. Addendum: 10/15/18 at 1503 by CALEB CERVANTES SS CORRECTION TO PREVIOUS NOTE: SS received notification that pt was from [facility], ; fax [phone]. SS contacted [facility] to verify pt's previous placement. [facility] confirmed that pt was a LTC resident from there facility and was able to return when medically stable for discharge.
[2018-10-15 15:19] VITALS: BP 140/80
--- NOTE | 2018-10-15 15:43 | PDOC2 ---
CONSULT Date of Consult Date of Consult DATE: 10/15/18 TIME: 15:28 Reason for Consult Reason for Consult: CRI Source Source: Chart review History of Present Illness Reason for Visit: Unable to Obtain Hx from Pt due to dementia 83-year-old male with multiple medical problems brought in by ambulance from a skilled nursing with vomiting 2 days as well as elevated blood pressure. He has been vomiting complaining of diffuse abdominal pain for 2 days he has not been taking able to take his blood pressure medication BP was 220s medics gave Nitropaste it stayed up, he was also complaining of headache In the ER was found to have a bowel obstruction Currently in recliner with eyes closed, opens eyes but doesn't answer any questions Past Medical History Cardiovascular: CAD, CHF, HTN, Hyperlipidemia, Other Pulmonary: COPD, Pneumonia GI: GERD, Other Heme/Onc: Anemia NOS Psych: Depression, Other Musculoskeletal: Osteoarthritis, Weakness Rheumatologic: Other Renal/: Chronic renal insuff, Benign prostatic enlarg. Past Surgical History Past Surgical History: Pacemaker (Single chamber placed in 02/2016), Cholecystectomy, Other (abd mass removal) Family History Family History: Heart Disease, Hypertension Social History No ALCOHOL: none Drugs: None Lives: Prison Current Medications Current Medications Current Medications Labetalol HCl (Normodyne Iv Push) 20 mg 1X ONCE IVP Last administered on at 19:26; Start 10/14/18 at 19:00; Stop 10/14/18 at 19:05; Status DC Ondansetron HCl (Zofran) 4 mg 1X ONCE IV Last administered on 10/14/18at 19:13 ; Start 10/14/18 at 19:00; Stop 10/14/18 at 19:05; Status DC Fentanyl Citrate (Fentanyl 2ml Vial) 50 mcg 1X ONCE IV Last administered on at 19:21; Start 10/14/18 at 19:00; Stop 10/14/18 at 19:05; Status DC Iohexol (Omnipaque 300 Mg/ml) 60 ml 1X ONCE IV Last administered on 10/14/18at 20:08; Start 10/14/18 at 20:00; Stop 10/14/18 at 20:01; Status DC Info (CONTRAST GIVEN -- Rx MONITORING) 1 each PRN DAILY PRN MC SEE COMMENTS; Start 10/14/18 at 20:00; Stop 10/16/18 at 19:59 Ondansetron HCl (Zofran) 4 mg PRN Q8HRS PRN IV NAUSEA/VOMITING 1ST CHOICE Last administered on 10/14/18at 22:31; Start 10/14/18 at 22:15; Stop 10/15/18 at 22:14 Morphine Sulfate (Morphine Sulfate) 4 mg PRN Q2HR PRN IV SEVERE PAIN; Start at 22:15; Stop 10/15/18 at 22:14 Sodium Chloride 1,000 ml @ 100 mls/hr Q10H IV Last administered on 10/15/18at 00:46; Start 10/14/18 at 22:30; Stop 10/15/18 at 22:29 Nitroglycerin (Nitro-Bid Oint) 1 inch 1X ONCE TP Last administered on at 22:42; Start 10/14/18 at 22:30; Stop 10/14/18 at 22:31; Status DC Labetalol HCl (Normodyne Iv Push) 20 mg PRN Q2HR PRN IVP HYPERTENSION, SEE COMMENTS Last administered on 10/15/18at 03:39; Start 10/14/18 at 23:00 Nystatin (Nystop) 1 amrik BID TP Last administered on 10/15/18at 09:04; Start at 09:00 Furosemide (Lasix) 20 mg DAILY PO ; Start 10/15/18 at 09:00; Stop 10/15/18 at 09 :00; Status DC Metoprolol Tartrate (Lopressor Vial) 5 mg Q6HRS IVP ; Start 10/15/18 at 12:00 Active Scripts Active Cozaar (Losartan Potassium) 50 Mg Tablet 50 Mg PO DAILY 30 Days Prednisone (Prednisone) 10 Mg Tablet 10 Mg PO UD Take 3 tablets by mouth twice a day for 3 days, then take 2 tablets by mouth twice a day for 3 days, then take 1 tablet by mouth twice a day for 3 days, then take 1 tablet by mouth daily x 3 days, then stop. Allopurinol 100 Mg Tablet 1 Tab PO DAILY Colcrys (Colchicine) 0.6 Mg Tablet 0.6 Mg PO DAILY 30 Days Budesonide 0.5 Mg/2 Ml Ampul.neb 0.5 Mg NEB RTBID 30 Days Aspirin Ec (Aspirin) 81 Mg Tablet.dr 81 Mg PO DAILYWBKFT 30 Days Duoneb 0.5-3(2.5) Mg/3 Ml (Albuterol/Ipratropium) 3 Ml Ampul.neb 3 Ml NEB RTQID 30 Days Metoprolol Tartrate 50 Mg Tablet 2 Tab PO BID 30 Days Reported Potassium Chloride 20 Meq Tablet.er 20 Meq PO DAILY Miralax (Polyethylene Glycol 3350) 17 Gm Powd.pack 1 Packet PO PRN DAILY PRN Lortab 5-325 mg Tablet (Hydrocodone/Acetaminophen) 1 Each Tablet 1 Tab PO PRN Q4HRS PRN Tylenol (Acetaminophen) 325 Mg Tablet 1 Tab PO PRN Q6HRS PRN Spironolactone 25 Mg Tablet 1 Tab PO BID Clopidogrel (Clopidogrel Bisulfate) 75 Mg Tablet 1 Tab PO DAILY Famotidine 20 Mg Tablet 20 Mg PO HS Tamsulosin Hcl 0.4 Mg Cap.er.24h 0.4 Mg PO DAILY Allergies Allergies: Coded Allergies: Penicillins (Verified Allergy, Intermediate, Itching, 03/06/16) ROS Review of System Unable to obtain from Pt, as per HPI Physical Exam Physical Exam GEN- NAD HEENT- OM moist neck Supple HEART: Distant S1, S2. LUNGS: Clear, Non labored ABDOMEN: Soft and obese, large hernia in the right lower quadrant. EXTREMITIES: excoriations on the skin. SKIN: rash on his abdomen Neuro- dementia as per caregiver in the room - No Kate Vital Signs Vital Signs Date Time Temp Pulse Resp B/P (MAP) Pulse Ox O2 Delivery O2 Flow Rate FiO2 10/15/18 15:19 98.1 70 18 140/80 (100) 97 Room Air 98.1 Assessment & Plan CKD stage 3- Stable renal function E-Lytes, acid base stable, Volume status stable UA- Proteinuria +, few wbc, No micr hematuria Monitor Abd pain/vomiting: CT noted with SBO, general surgery following Accelerated HTN: BP better after labetolol Missed doses due to vomiting Known COPD with moderate to severe pulmonary HTN Chronic diastolic CHF: small bilateral pleural effusion otherwise clinically compensated PPM in situ: placed due to SSS ([facility]) Hx of AFIB; appears chronic. V Possible cirrhotic features: per CT. Defer to PCP Labs Labs Laboratory Tests Test 10/14/18 19:17 10/14/18 19:55 10/14/18 20:40 10/15/18 06:00 Sodium Level 138 mmol/L (136-145) Potassium Level 4.5 mmol/L (3.5-5.1) Chloride Level 100 mmol/L (98-107) Carbon Dioxide Level 29 mmol/L (21-32) Anion Gap 9 (6-14) Blood Urea Nitrogen 16 mg/dL (8-26) Creatinine 1.5 mg/dL (0.7-1.3) Estimated GFR (Cockcroft-Gault) 54.2 BUN/Creatinine Ratio 11 (6-20) Glucose Level 120 mg/dL (70-99) Lactic Acid Level 1.5 mmol/L (0.4-2.0) Calcium Level 9.6 mg/dL (8.5-10.1) Total Bilirubin 1.3 mg/dL (0.2-1.0) Aspartate Amino Transf (AST/SGOT) 15 U/L (15-37) Alanine Aminotransferase (ALT/SGPT) 10 U/L (16-63) Alkaline Phosphatase 154 U/L (46-116) Troponin I Quantitative 0.108 ng/mL (0.000-0.055) 0.097 ng/mL (0.000-0.055) OE-Zva-F-Type Natriuretic Peptide 8198 pg/mL (0-449) Total Protein 8.8 g/dL (6.4-8.2) Albumin 3.3 g/dL (3.4-5.0) Albumin/Globulin Ratio 0.6 (1.0-1.7) Lipase 33 U/L (73-393) White Blood Count 6.4 x10^3/uL (4.0-11.0) Red Blood Count 4.99 x10^6/uL (4.30-5.70) Hemoglobin 12.7 g/dL (13.0-17.5) Hematocrit 41.1 % (39.0-53.0) Mean Corpuscular Volume 82 fL (79-100) Mean Corpuscular Hemoglobin 25 pg (25-35) Mean Corpuscular Hemoglobin Concent 31 g/dL (31-37) Red Cell Distribution Width 19.9 % (11.5-14.5) Platelet Count 156 x10^3/uL (140-400) Neutrophils (%) (Auto) 89 % (31-73) Lymphocytes (%) (Auto) 3 % (24-48) Monocytes (%) (Auto) 8 % (0-9) Eosinophils (%) (Auto) 0 % (0-3) Basophils (%) (Auto) 0 % (0-3) Neutrophils # (Auto) 5.6 x10^3uL (1.8-7.7) Lymphocytes # (Auto) 0.2 x10^3/uL (1.0-4.8) Monocytes # (Auto) 0.5 x10^3/uL (0.0-1.1) Eosinophils # (Auto) 0.0 x10^3/uL (0.0-0.7) Basophils # (Auto) 0.0 x10^3/uL (0.0-0.2) Segmented Neutrophils % 92 % (35-66) Band Neutrophils % 1 % (0-9) Lymphocytes % 2 % (24-48) Monocytes % 5 % (0-10) Platelet Estimate Adequate (ADEQUATE) Poikilocytosis Slight Anisocytosis Slight Schistocytes Occ Prothrombin Time 15.7 SEC (11.7-14.0) Prothromb Time International Ratio 1.3 (0.8-1.1) Urine Collection Type Unknown Urine Color Janelle Urine Clarity Cloudy Urine pH 6.0 Urine Specific Bladen 1.025 Urine Protein >=300 mg/dL (NEG-TRACE) Urine Glucose (UA) Negative mg/dL (NEG) Urine Ketones (Stick) Trace mg/dL (NEG) Urine Blood Negative (NEG) Urine Nitrite Negative (NEG) Urine Bilirubin Small (NEG) Urine Urobilinogen Dipstick 1.0 mg/dL (0.2 mg/dL) Urine Leukocyte Esterase Negative (NEG) Urine RBC 0 /HPF (0-2) Urine WBC 5-10 /HPF (0-4) Urine Squamous Epithelial Cells Few /LPF Urine Bacteria 0 /HPF (0-FEW) Urine Hyaline Casts Few /HPF Urine Mucus Mod /LPF Triglycerides Level 46 mg/dL (0-150) Cholesterol Level 99 mg/dL (0-200) LDL Cholesterol, Calculated 41 mg/dL (0-100) VLDL Cholesterol, Calculated 9 mg/dL (0-40) Non-HDL Cholesterol Calculated 50 mg/dL (0-129) HDL Cholesterol 49 mg/dL (40-60) Cholesterol/HDL Ratio 2.0 Thyroid Stimulating Hormone (TSH) 4.511 uIU/mL (0.358-3.74) Laboratory Tests Test 10/14/18 19:17 10/14/18 19:55 10/14/18 20:40 10/15/18 06:00 Sodium Level 138 mmol/L (136-145) Potassium Level 4.5 mmol/L (3.5-5.1) Chloride Level 100 mmol/L (98-107) Carbon Dioxide Level 29 mmol/L (21-32) Anion Gap 9 (6-14) Blood Urea Nitrogen 16 mg/dL (8-26) Creatinine 1.5 mg/dL (0.7-1.3) Estimated GFR (Cockcroft-Gault) 54.2 BUN/Creatinine Ratio 11 (6-20) Glucose Level 120 mg/dL (70-99) Lactic Acid Level 1.5 mmol/L (0.4-2.0) Calcium Level 9.6 mg/dL (8.5-10.1) Total Bilirubin 1.3 mg/dL (0.2-1.0) Aspartate Amino Transf (AST/SGOT) 15 U/L (15-37) Alanine Aminotransferase (ALT/SGPT) 10 U/L (16-63) Alkaline Phosphatase 154 U/L (46-116) Troponin I Quantitative 0.108 ng/mL (0.000-0.055) 0.097 ng/mL (0.000-0.055) OY-Jkv-Y-Type Natriuretic Peptide 8198 pg/mL (0-449) Total Protein 8.8 g/dL (6.4-8.2) Albumin 3.3 g/dL (3.4-5.0) Albumin/Globulin Ratio 0.6 (1.0-1.7) Lipase 33 U/L (73-393) White Blood Count 6.4 x10^3/uL (4.0-11.0) Red Blood Count 4.99 x10^6/uL (4.30-5.70) Hemoglobin 12.7 g/dL (13.0-17.5) Hematocrit 41.1 % (39.0-53.0) Mean Corpuscular Volume 82 fL (79-100) Mean Corpuscular Hemoglobin 25 pg (25-35) Mean Corpuscular Hemoglobin Concent 31 g/dL (31-37) Red Cell Distribution Width 19.9 % (11.5-14.5) Platelet Count 156 x10^3/uL (140-400) Neutrophils (%) (Auto) 89 % (31-73) Lymphocytes (%) (Auto) 3 % (24-48) Monocytes (%) (Auto) 8 % (0-9) Eosinophils (%) (Auto) 0 % (0-3) Basophils (%) (Auto) 0 % (0-3) Neutrophils # (Auto) 5.6 x10^3uL (1.8-7.7) Lymphocytes # (Auto) 0.2 x10^3/uL (1.0-4.8) Monocytes # (Auto) 0.5 x10^3/uL (0.0-1.1) Eosinophils # (Auto) 0.0 x10^3/uL (0.0-0.7) Basophils # (Auto) 0.0 x10^3/uL (0.0-0.2) Segmented Neutrophils % 92 % (35-66) Band Neutrophils % 1 % (0-9) Lymphocytes % 2 % (24-48) Monocytes % 5 % (0-10) Platelet Estimate Adequate (ADEQUATE) Poikilocytosis Slight Anisocytosis Slight Schistocytes Occ Prothrombin Time 15.7 SEC (11.7-14.0) Prothromb Time International Ratio 1.3 (0.8-1.1) Urine Collection Type Unknown Urine Color Janelle Urine Clarity Cloudy Urine pH 6.0 Urine Specific Bladen 1.025 Urine Protein >=300 mg/dL (NEG-TRACE) Urine Glucose (UA) Negative mg/dL (NEG) Urine Ketones (Stick) Trace mg/dL (NEG) Urine Blood Negative (NEG) Urine Nitrite Negative (NEG) Urine Bilirubin Small (NEG) Urine Urobilinogen Dipstick 1.0 mg/dL (0.2 mg/dL) Urine Leukocyte Esterase Negative (NEG) Urine RBC 0 /HPF (0-2) Urine WBC 5-10 /HPF (0-4) Urine Squamous Epithelial Cells Few /LPF Urine Bacteria 0 /HPF (0-FEW) Urine Hyaline Casts Few /HPF Urine Mucus Mod /LPF Triglycerides Level 46 mg/dL (0-150) Cholesterol Level 99 mg/dL (0-200) LDL Cholesterol, Calculated 41 mg/dL (0-100) VLDL Cholesterol, Calculated 9 mg/dL (0-40) Non-HDL Cholesterol Calculated 50 mg/dL (0-129) HDL Cholesterol 49 mg/dL (40-60) Cholesterol/HDL Ratio 2.0 Thyroid Stimulating Hormone (TSH) 4.511 uIU/mL (0.358-3.74) Review All relevant outside records, renal labs, imaging studies, telemetry/EKG's were reviewed. Images Images CT scan with IV contrast 10/14-- Small bilateral pleural effusions are present greater on the left. Minimal adjacent atelectasis. Pacemaker lead is visualized. Coronary arterial calcifications noted. Nodular contour of the liver is noted. Liver is small in size. Calculus involvement of the gallbladder neck noted. There are at least 2 calculi suggested and these measure less than 0.6 cm diameter. No biliary dilatation. No pericholecystic fluid. Significant laxity of the lower abdominal wall is noted. Lower abdominal pannus noted. Multiple distended small bowel loops are present with transition noted in the within the low abdomen tenderness. Diverticulosis of the colon noted. Suture material involves the ascending colon. No inflammatory change about the ascending colon. Renal cysts are present. Minimal ascites noted within lower abdominal pannus. Urinary bladder is unremarkable. Significant L4-5 disc space narrowing is present. Impression: Significant distention of small bowel loops with transition within the low abdominal pannus. Small bowel obstruction. Small pleural effusions with minimal adjacent atelectasis. Hepatic cirrhosis or other fibrotic process. Diverticulosis. CLAUDE LOVE MD Oct 15, 2018 15:43
--- NOTE | 2018-10-15 17:34 | CARD ---
MR#: [id number] Date of Study: 10/15/2018 Ordering Physician: YASHIRA SALMERON, Referring Physician: NELI LUTZ Tech: Yuli Ng APPROVED REPORT EXAM: Two-dimensional and M-mode echocardiogram with Doppler and color Doppler. Other Information Quality : AverageHR: 79bpm Technically limited study due to body habitus. INDICATION Pulmonary Hypertention Elevated Troponin Surgery/Intervention Pacemaker: RISK FACTORS Hypertension Hyperlipidemia 2D DIMENSIONS Left Atrium(2D)4.2 (1.6-4.0cm)IVSd1.2 (0.7-1.1cm) Aortic Root(2D)3.1 (2.0-3.7cm)LVDd4.0 (3.9-5.9cm) LVOT Diameter2.0 (1.8-2.4cm)PWd1.1 (0.7-1.1cm) LVDs2.7 (2.5-4.0cm)FS (%) 31.1 % SV40.6 mlLVEF(%)59.4 (>50%) Aortic Valve AoV Peak Rodrigo.118.2cm/sAoV VTI20.4cm AO Peak GR.5.6mmHgLVOT Peak Rodrigo.66.1cm/s AO Mean GR.3mmHgAVA (VMAX)1.83cm2 Mitral Valve MV E Nrdsxkld68.6cm/sMV DECEL [id number] MV A Skppzmpm93.5cm/sE/A Ratio3.6 Pulmonary Valve PV Peak Gododbci464.9cm/s Tricuspid Valve TR P. Nxvyybig921oe/sRAP JUHNLTOA3fcPr TR Peak Gr.55cxSyMRCQ69rdAm LEFT VENTRICLE The left ventricle is normal size. There is mild concentric left ventricular hypertrophy. The left ve ntricular systolic function is low normal. The Ejection Fraction is 50%. Septal motion suggestive of paced rhythm. Transmitral Doppler flow pattern is Grade II-pseudonormal filling dynamics. RIGHT VENTRICLE The right ventricle is moderately dilated. There is normal right ventricular wall thickness. The righ t ventricular systolic function is normal. ATRIA The left atrium is mildly dilated. The right atrium is mildly dilated. The interatrial septum is inta ct with no evidence for an atrial septal defect or patent foramen ovale as noted on 2-D or Doppler im aging. AORTIC VALVE Not well visualized. Doppler and Color Flow revealed no significant aortic regurgitation. Calculated aortic valve area is 1.8 cm2 with maximum pressure gradient of 6 mmHg and mean pressure gradient of 4 mmHg. There is no significant aortic valvular stenosis. MITRAL VALVE The mitral valve is thickened but opens well. There is no evidence of mitral valve prolapse. There is no mitral valve stenosis. Doppler and Color-flow revealed mild mitral regurgitation. TRICUSPID VALVE The tricuspid valve is normal in structure and function. Doppler and Color Flow revealed trace to mil d tricuspid regurgitation. RVSP 48 mm Hg. There is no tricuspid valve stenosis. PULMONIC VALVE The pulmonic valve is not well visualized. Doppler and Color Flow revealed trace pulmonic valvular re gurgitation. GREAT VESSELS The aortic root is normal in size. The IVC was not visualized. PERICARDIAL EFFUSION There is a trace pericardial effusion. Critical Notification Critical Value: No <Conclusion> The left ventricular systolic function is low normal. The Ejection Fraction is 50%. Septal motion suggestive of paced rhythm. The right ventricle is moderately dilated. Doppler and Color Flow revealed trace to mild tricuspid regurgitation. RVSP 48 mm Hg. Signed by : Earnest Cruz, Electronically Approved : 10/15/2018 17:33:59
[2018-10-15 19:07] VITALS: BP 157/91
--- NOTE | 2018-10-15 21:33 | NUR ---
Patient is confused. Patient repeatedly removes his scooter mechanic. Patient will not leave his scooter mechanic on. Patient pulled his PIV out. Patient insisted RN call his family. RN did as requested. Family member requested RN allow patient to do what ever he wants. MAybe he will cooperate later. RN paged Dr. Nayak impression printer.
[2018-10-15] MEDS ORDERED: HALOPERIDOL LACTATE 5 MG/ML VIAL. IVP ONE (22:00)
[2018-10-15] MEDS ORDERED: HALOPERIDOL LACTATE 5 MG/ML VIAL. IM ONE (23:30)
[2018-10-16 02:13] VITALS: BP 171/103
[2018-10-16] MEDS: METOPROLOL TARTRATE 5 MG/5 ML VIAL. IVP SCH ×4 (02:31→17:43)
[2018-10-16 05:27] LABS: ALBUMIN 2.7 g/dL (3.4-5.0); ALBUMIN/GLOBULIN RATIO 0.6 (1.0-1.7); CALCIUM 8.8 mg/dL (8.5-10.1); CREATININE 1.6 mg/dL (0.7-1.3); GFR 50.3; POTASSIUM 4.1 mmol/L (3.5-5.1); TOTAL BILIRUBIN 0.9 mg/dL (0.2-1.0)
[2018-10-16 05:40] LABS: BASO % 1 % (0-3); EOS # 0.3 x10^3/uL (0.0-0.7); EOS % 5 % (0-3); HEMATOCRIT 39.9 % (39.0-53.0); HEMOGLOBIN 12.2 g/dL (13.0-17.5); LYMPH # 0.5 x10^3/uL (1.0-4.8); LYMPH % 9 % (24-48); MEAN CORPUSCULAR HEMOGLOBIN 26 pg (25-35); MEAN CORPUSCULAR HGB CONC 30 g/dL (31-37); MEAN CORPUSCULAR VOLUME 85 fL (79-100); MONO % 16 % (0-9); NEUT # 4.1 x10^3uL (1.8-7.7); NEUT % 69 % (31-73); PLATELET COUNT 136 x10^3/uL (140-400); RED BLOOD COUNT 4.71 x10^6/uL (4.30-5.70); RED CELL DISTRIBUTION WIDTH 20.4 % (11.5-14.5)
[2018-10-16] MEDS: ENALAPRILAT 2.5 MG/2 ML VIAL. IVP SCH ×3 (08:00→17:43)
--- NOTE | 2018-10-16 08:00 | NUR ---
Pt removed IV access at this time. Will not allow staff to re-establish and IV. Pt has also removed telemetry and refuses to put it back on. He states we are all liars and are telling lies about him. Pt remains NPO and is to have IV fluids running but will not allow staff to do so. Physician notified. Will continue to monitor.
[2018-10-16] MEDS: NYSTATIN TOPICAL POWDER 15GM BOTTLE. TP SCH ×2 (09:00→21:00)
--- NOTE | 2018-10-16 09:13 | PDOC ---
SUBJECTIVE ROS Stable OBJECTIVE Vital Signs Vital Signs Date Time Temp Pulse Resp B/P (MAP) Pulse Ox O2 Delivery O2 Flow Rate FiO2 10/16/18 02:31 69 187/98 10/16/18 02:13 98.4 18 95 Room Air 98.4 I & 0 Intake and Output 10/16/18 06:59 Intake Total 1445 ml Output Total 400 ml Balance 1045 ml Intake IV Total 1145 ml Other 300 ml Output Urine Total 400 ml # Voids 2 PHYSICAL EXAM Physical Exam GEN- NAD HEENT- OM moist neck Supple HEART: Distant S1, S2. LUNGS: Clear, Non labored ABDOMEN: Soft and obese, large hernia in the right lower quadrant. EXTREMITIES: excoriations on the skin LE edema + SKIN: rash on his abdomen Neuro- dementia - No Kate DIAGNOSIS/ASSESSMENT Assessment & Plan CKD stage 3- Stable renal function E-Lytes, acid base stable, Volume status stable UA- Proteinuria +, few wbc, No micr hematuria Monitor Abd pain/vomiting: CT noted with SBO, general surgery following Accelerated HTN: Card managing Known COPD with moderate to severe pulmonary HTN Chronic diastolic CHF: small bilateral pleural effusion otherwise clinically compensated PPM in situ: placed due to SSS ([facility]) Hx of AFIB; appears chronic. V Possible cirrhotic features: per CT. Defer to PCP COMMENT/RELEVANT DATA Meds Current Medications Medications (Trade) Dose Ordered Sig/Katrina Start Time Stop Time Status Last Admin Dose Admin Enalaprilat (Vasotec Inj) 1.25 mg Q6HRS 10/16/18 08:00 Fentanyl Citrate (Fentanyl 2ml Vial) 50 mcg 1X ONCE 10/14/18 19:00 10/14/18 19:05 DC 10/14/18 19:21 50 MCG Furosemide (Lasix) 20 mg DAILY 10/15/18 09:00 10/15/18 09:00 DC Haloperidol Lactate (Haldol Inj) 5 mg 1X ONCE 10/15/18 23:30 10/15/18 23:31 DC 10/16/18 02:31 5 MG Info (CONTRAST GIVEN -- Rx MONITORING) 1 each PRN DAILY PRN 10/14/18 20:00 10/16/18 19:59 Iohexol (Omnipaque 300 Mg/ml) 60 ml 1X ONCE 10/14/18 20:00 10/14/18 20:01 DC 10/14/18 20:08 60 ML Labetalol HCl (Normodyne Iv Push) 20 mg PRN Q2HR PRN 10/14/18 23:00 10/15/18 03:39 20 MG Metoprolol Tartrate (Lopressor Vial) 5 mg Q6HRS 10/15/18 12:00 10/16/18 02:31 5 MG Morphine Sulfate (Morphine Sulfate) 4 mg PRN Q2HR PRN 10/14/18 22:15 10/15/18 22:14 DC Nitroglycerin (Nitro-Bid Oint) 1 inch 1X ONCE 10/14/18 22:30 10/14/18 22:31 DC 10/14/18 22:42 1 INCH Nystatin (Nystop) 1 amrik BID 10/15/18 09:00 10/15/18 20:41 1 AMRIK Ondansetron HCl (Zofran) 4 mg PRN Q8HRS PRN 10/14/18 22:15 10/15/18 22:14 DC 10/14/18 22:31 4 MG Sodium Chloride 1,000 ml @ 100 mls/hr Q10H 10/14/18 22:30 10/15/18 22:29 DC 10/15/18 20:40 100 MLS/HR Lab Laboratory Tests Test 10/16/18 04:25 White Blood Count 6.0 x10^3/uL (4.0-11.0) Red Blood Count 4.71 x10^6/uL (4.30-5.70) Hemoglobin 12.2 g/dL (13.0-17.5) Hematocrit 39.9 % (39.0-53.0) Mean Corpuscular Volume 85 fL (79-100) Mean Corpuscular Hemoglobin 26 pg (25-35) Mean Corpuscular Hemoglobin Concent 30 g/dL (31-37) Red Cell Distribution Width 20.4 % (11.5-14.5) Platelet Count 136 x10^3/uL (140-400) Neutrophils (%) (Auto) 69 % (31-73) Lymphocytes (%) (Auto) 9 % (24-48) Monocytes (%) (Auto) 16 % (0-9) Eosinophils (%) (Auto) 5 % (0-3) Basophils (%) (Auto) 1 % (0-3) Neutrophils # (Auto) 4.1 x10^3uL (1.8-7.7) Lymphocytes # (Auto) 0.5 x10^3/uL (1.0-4.8) Monocytes # (Auto) 1.0 x10^3/uL (0.0-1.1) Eosinophils # (Auto) 0.3 x10^3/uL (0.0-0.7) Basophils # (Auto) 0.0 x10^3/uL (0.0-0.2) Sodium Level 142 mmol/L (136-145) Potassium Level 4.1 mmol/L (3.5-5.1) Chloride Level 108 mmol/L (98-107) Carbon Dioxide Level 22 mmol/L (21-32) Anion Gap 12 (6-14) Blood Urea Nitrogen 22 mg/dL (8-26) Creatinine 1.6 mg/dL (0.7-1.3) Estimated GFR (Cockcroft-Gault) 50.3 BUN/Creatinine Ratio 14 (6-20) Glucose Level 76 mg/dL (70-99) Calcium Level 8.8 mg/dL (8.5-10.1) Total Bilirubin 0.9 mg/dL (0.2-1.0) Aspartate Amino Transf (AST/SGOT) 19 U/L (15-37) Alanine Aminotransferase (ALT/SGPT) 9 U/L (16-63) Alkaline Phosphatase 115 U/L (46-116) Total Protein 7.0 g/dL (6.4-8.2) Albumin 2.7 g/dL (3.4-5.0) Albumin/Globulin Ratio 0.6 (1.0-1.7) Results All relevant outside records, renal labs, imaging studies, telemetry/EKG's were reviewed. CLAUDE LOVE MD Oct 16, 2018 09:12
--- NOTE | 2018-10-16 09:22 | NUR ---
IP: Pt is mrsa screen + requiring contact precautions.
--- NOTE | 2018-10-16 09:58 | PDOC ---
CARLOS MANUEL ALFREDO [employer]AGE SHIFT MANAGER 10/16/18 0958: SURGICAL PROGRESS NOTE Subjective reports no abdominal pain, no nausea unsure if any flatus noted confusion Vital Signs Vital Signs Date Time Temp Pulse Resp B/P (MAP) Pulse Ox O2 Delivery O2 Flow Rate FiO2 10/16/18 02:31 69 187/98 10/16/18 02:13 98.4 18 95 Room Air 98.4 I&O Intake and Output 10/16/18 07:00 Intake Total 1445 ml Output Total 400 ml Balance 1045 ml Intake IV Total 1145 ml Other 300 ml Output Urine Total 400 ml # Voids 2 General: Cooperative, No acute distress Abdomen: Soft, No tenderness Labs Laboratory Tests Test 10/14/18 19:17 10/14/18 19:55 10/14/18 20:40 10/15/18 05:40 Sodium Level 138 mmol/L (136-145) Potassium Level 4.5 mmol/L (3.5-5.1) Chloride Level 100 mmol/L (98-107) Carbon Dioxide Level 29 mmol/L (21-32) Anion Gap 9 (6-14) Blood Urea Nitrogen 16 mg/dL (8-26) Creatinine 1.5 mg/dL (0.7-1.3) Estimated GFR (Cockcroft-Gault) 54.2 BUN/Creatinine Ratio 11 (6-20) Glucose Level 120 mg/dL (70-99) Lactic Acid Level 1.5 mmol/L (0.4-2.0) Calcium Level 9.6 mg/dL (8.5-10.1) Total Bilirubin 1.3 mg/dL (0.2-1.0) Aspartate Amino Transf (AST/SGOT) 15 U/L (15-37) Alanine Aminotransferase (ALT/SGPT) 10 U/L (16-63) Alkaline Phosphatase 154 U/L (46-116) Troponin I Quantitative 0.108 ng/mL (0.000-0.055) QP-Zgd-P-Type Natriuretic Peptide 8198 pg/mL (0-449) Total Protein 8.8 g/dL (6.4-8.2) Albumin 3.3 g/dL (3.4-5.0) Albumin/Globulin Ratio 0.6 (1.0-1.7) Lipase 33 U/L (73-393) White Blood Count 6.4 x10^3/uL (4.0-11.0) Red Blood Count 4.99 x10^6/uL (4.30-5.70) Hemoglobin 12.7 g/dL (13.0-17.5) Hematocrit 41.1 % (39.0-53.0) Mean Corpuscular Volume 82 fL (79-100) Mean Corpuscular Hemoglobin 25 pg (25-35) Mean Corpuscular Hemoglobin Concent 31 g/dL (31-37) Red Cell Distribution Width 19.9 % (11.5-14.5) Platelet Count 156 x10^3/uL (140-400) Neutrophils (%) (Auto) 89 % (31-73) Lymphocytes (%) (Auto) 3 % (24-48) Monocytes (%) (Auto) 8 % (0-9) Eosinophils (%) (Auto) 0 % (0-3) Basophils (%) (Auto) 0 % (0-3) Neutrophils # (Auto) 5.6 x10^3uL (1.8-7.7) Lymphocytes # (Auto) 0.2 x10^3/uL (1.0-4.8) Monocytes # (Auto) 0.5 x10^3/uL (0.0-1.1) Eosinophils # (Auto) 0.0 x10^3/uL (0.0-0.7) Basophils # (Auto) 0.0 x10^3/uL (0.0-0.2) Segmented Neutrophils % 92 % (35-66) Band Neutrophils % 1 % (0-9) Lymphocytes % 2 % (24-48) Monocytes % 5 % (0-10) Platelet Estimate Adequate (ADEQUATE) Poikilocytosis Slight Anisocytosis Slight Schistocytes Occ Prothrombin Time 15.7 SEC (11.7-14.0) Prothromb Time International Ratio 1.3 (0.8-1.1) Urine Collection Type Unknown Urine Color Janelle Urine Clarity Cloudy Urine pH 6.0 Urine Specific [place] 1.025 Urine Protein >=300 mg/dL (NEG-TRACE) Urine Glucose (UA) Negative mg/dL (NEG) Urine Ketones (Stick) Trace mg/dL (NEG) Urine Blood Negative (NEG) Urine Nitrite Negative (NEG) Urine Bilirubin Small (NEG) Urine Urobilinogen Dipstick 1.0 mg/dL (0.2 mg/dL) Urine Leukocyte Esterase Negative (NEG) Urine RBC 0 /HPF (0-2) Urine WBC 5-10 /HPF (0-4) Urine Squamous Epithelial Cells Few /LPF Urine Bacteria 0 /HPF (0-FEW) Urine Hyaline Casts Few /HPF Urine Mucus Mod /LPF Nasal Screen MRSA (PCR) Positive (Negative) Test 10/15/18 06:00 10/16/18 04:25 Troponin I Quantitative 0.097 ng/mL (0.000-0.055) Triglycerides Level 46 mg/dL (0-150) Cholesterol Level 99 mg/dL (0-200) LDL Cholesterol, Calculated 41 mg/dL (0-100) VLDL Cholesterol, Calculated 9 mg/dL (0-40) Non-HDL Cholesterol Calculated 50 mg/dL (0-129) HDL Cholesterol 49 mg/dL (40-60) Cholesterol/HDL Ratio 2.0 Thyroid Stimulating Hormone (TSH) 4.511 uIU/mL (0.358-3.74) White Blood Count 6.0 x10^3/uL (4.0-11.0) Red Blood Count 4.71 x10^6/uL (4.30-5.70) Hemoglobin 12.2 g/dL (13.0-17.5) Hematocrit 39.9 % (39.0-53.0) Mean Corpuscular Volume 85 fL (79-100) Mean Corpuscular Hemoglobin 26 pg (25-35) Mean Corpuscular Hemoglobin Concent 30 g/dL (31-37) Red Cell Distribution Width 20.4 % (11.5-14.5) Platelet Count 136 x10^3/uL (140-400) Neutrophils (%) (Auto) 69 % (31-73) Lymphocytes (%) (Auto) 9 % (24-48) Monocytes (%) (Auto) 16 % (0-9) Eosinophils (%) (Auto) 5 % (0-3) Basophils (%) (Auto) 1 % (0-3) Neutrophils # (Auto) 4.1 x10^3uL (1.8-7.7) Lymphocytes # (Auto) 0.5 x10^3/uL (1.0-4.8) Monocytes # (Auto) 1.0 x10^3/uL (0.0-1.1) Eosinophils # (Auto) 0.3 x10^3/uL (0.0-0.7) Basophils # (Auto) 0.0 x10^3/uL (0.0-0.2) Sodium Level 142 mmol/L (136-145) Potassium Level 4.1 mmol/L (3.5-5.1) Chloride Level 108 mmol/L (98-107) Carbon Dioxide Level 22 mmol/L (21-32) Anion Gap 12 (6-14) Blood Urea Nitrogen 22 mg/dL (8-26) Creatinine 1.6 mg/dL (0.7-1.3) Estimated GFR (Cockcroft-Gault) 50.3 BUN/Creatinine Ratio 14 (6-20) Glucose Level 76 mg/dL (70-99) Calcium Level 8.8 mg/dL (8.5-10.1) Total Bilirubin 0.9 mg/dL (0.2-1.0) Aspartate Amino Transf (AST/SGOT) 19 U/L (15-37) Alanine Aminotransferase (ALT/SGPT) 9 U/L (16-63) Alkaline Phosphatase 115 U/L (46-116) Total Protein 7.0 g/dL (6.4-8.2) Albumin 2.7 g/dL (3.4-5.0) Albumin/Globulin Ratio 0.6 (1.0-1.7) Laboratory Tests Test 10/16/18 04:25 White Blood Count 6.0 x10^3/uL (4.0-11.0) Red Blood Count 4.71 x10^6/uL (4.30-5.70) Hemoglobin 12.2 g/dL (13.0-17.5) Hematocrit 39.9 % (39.0-53.0) Mean Corpuscular Volume 85 fL (79-100) Mean Corpuscular Hemoglobin 26 pg (25-35) Mean Corpuscular Hemoglobin Concent 30 g/dL (31-37) Red Cell Distribution Width 20.4 % (11.5-14.5) Platelet Count 136 x10^3/uL (140-400) Neutrophils (%) (Auto) 69 % (31-73) Lymphocytes (%) (Auto) 9 % (24-48) Monocytes (%) (Auto) 16 % (0-9) Eosinophils (%) (Auto) 5 % (0-3) Basophils (%) (Auto) 1 % (0-3) Neutrophils # (Auto) 4.1 x10^3uL (1.8-7.7) Lymphocytes # (Auto) 0.5 x10^3/uL (1.0-4.8) Monocytes # (Auto) 1.0 x10^3/uL (0.0-1.1) Eosinophils # (Auto) 0.3 x10^3/uL (0.0-0.7) Basophils # (Auto) 0.0 x10^3/uL (0.0-0.2) Sodium Level 142 mmol/L (136-145) Potassium Level 4.1 mmol/L (3.5-5.1) Chloride Level 108 mmol/L (98-107) Carbon Dioxide Level 22 mmol/L (21-32) Anion Gap 12 (6-14) Blood Urea Nitrogen 22 mg/dL (8-26) Creatinine 1.6 mg/dL (0.7-1.3) Estimated GFR (Cockcroft-Gault) 50.3 BUN/Creatinine Ratio 14 (6-20) Glucose Level 76 mg/dL (70-99) Calcium Level 8.8 mg/dL (8.5-10.1) Total Bilirubin 0.9 mg/dL (0.2-1.0) Aspartate Amino Transf (AST/SGOT) 19 U/L (15-37) Alanine Aminotransferase (ALT/SGPT) 9 U/L (16-63) Alkaline Phosphatase 115 U/L (46-116) Total Protein 7.0 g/dL (6.4-8.2) Albumin 2.7 g/dL (3.4-5.0) Albumin/Globulin Ratio 0.6 (1.0-1.7) Assessment/Plan xrays pending conservative measures NO HUNT MD 10/16/18 1352: SURGICAL PROGRESS NOTE Assessment/Plan pt seen plain films improved continue present care consider CARLOS MANUEL Klein [employer]AGE SH[employer] MANAGER Oct 16, 2018 09:58 NO HUNT MD Oct 16, 2018 13:52
[2018-10-16 11:00] VITALS: BP 209/116
--- NOTE | 2018-10-16 11:43 | RAD ---
Acute abdomen series with chest, 3 views, 10/16/2018: HISTORY: Small bowel obstruction Gas is present in large and small bowel. Gaseous distention of small bowel seen on the dramatic reader image from the CT study of 10/14/2018 has regressed. There is only mild gaseous prominence of a small bowel loop in the left midabdomen at this time. No free air is evident in the abdomen. No organomegaly is seen. Scattered arterial calcifications are present. A left-sided transvenous pacing lead extends into the right heart. The heart is enlarged. The pulmonary vascularity is normal. There is tortuosity of the thoracic aorta. Slight blunting of the lateral costophrenic angles is compatible with a small amount of pleural fluid as noted on the recent CT study. No acute infiltrate is evident. IMPRESSION: Resolving small bowel distention Electronically signed by: Grery Rubin MD (10/16/2018 11:41 AM) [facility]
--- NOTE | 2018-10-16 12:42 | PDOC ---
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) Hx of AFIB; permanent chronic in nature Plan: conservative measures fluid resuscitation follow recommendations from fitness sales consultant. History of Present Illness History of Present Illness Patient lying in bed in no apparent distress, he is complaining of thirst. Patient seems lethargic and disoriented not very talkative and poor historian, no acute events reported overnight. Vitals Vitals Vital Signs Date Time Temp Pulse Resp B/P (MAP) Pulse Ox O2 Delivery O2 Flow Rate FiO2 10/16/18 11:00 97.6 87 18 209/116 (147) 92 Room Air 97.6 Physical Exam Physical Exam Gen.: chronically ill appearing in no apparent distress Head: Normal shape atraumatic Eyes: Pupils equal reactive to light and accommodation, normal conjunctivae and lids Ears: Normal shape Nose: Normal shape no trauma Mouth: No exudates of the back of throat no thrush no lesions Neck: Supple no JVD no carotid bruit or lymphadenopathy no thyromegaly Chest: Lungs clear to auscultation with good inspiratory effort no crackles rales or rhonchi Cardiovascular: S1-S2 regular rhythm systolic murmurs gallops or rubs Abdomen: Bowel sounds hypoactive soft nontender no hepatosplenomegaly appreciated sign Extremities: No clubbing no cyanosis no edema peripheral pulses palpated bilaterally Neurological: Alert awake oriented in person time place and situation, cranial nerves II through XII intact, no motor or sensory deficits appreciated Psych: Appropriate mood, cooperative Heart: Other (Vpaced with underlying afib) Extremities: Other (1+ bilateral LE pitting edema) Labs LABS Laboratory Tests Test 10/16/18 04:25 White Blood Count 6.0 x10^3/uL (4.0-11.0) Red Blood Count 4.71 x10^6/uL (4.30-5.70) Hemoglobin 12.2 g/dL (13.0-17.5) Hematocrit 39.9 % (39.0-53.0) Mean Corpuscular Volume 85 fL (79-100) Mean Corpuscular Hemoglobin 26 pg (25-35) Mean Corpuscular Hemoglobin Concent 30 g/dL (31-37) Red Cell Distribution Width 20.4 % (11.5-14.5) Platelet Count 136 x10^3/uL (140-400) Neutrophils (%) (Auto) 69 % (31-73) Lymphocytes (%) (Auto) 9 % (24-48) Monocytes (%) (Auto) 16 % (0-9) Eosinophils (%) (Auto) 5 % (0-3) Basophils (%) (Auto) 1 % (0-3) Neutrophils # (Auto) 4.1 x10^3uL (1.8-7.7) Lymphocytes # (Auto) 0.5 x10^3/uL (1.0-4.8) Monocytes # (Auto) 1.0 x10^3/uL (0.0-1.1) Eosinophils # (Auto) 0.3 x10^3/uL (0.0-0.7) Basophils # (Auto) 0.0 x10^3/uL (0.0-0.2) Sodium Level 142 mmol/L (136-145) Potassium Level 4.1 mmol/L (3.5-5.1) Chloride Level 108 mmol/L (98-107) Carbon Dioxide Level 22 mmol/L (21-32) Anion Gap 12 (6-14) Blood Urea Nitrogen 22 mg/dL (8-26) Creatinine 1.6 mg/dL (0.7-1.3) Estimated GFR (Cockcroft-Gault) 50.3 BUN/Creatinine Ratio 14 (6-20) Glucose Level 76 mg/dL (70-99) Calcium Level 8.8 mg/dL (8.5-10.1) Total Bilirubin 0.9 mg/dL (0.2-1.0) Aspartate Amino Transf (AST/SGOT) 19 U/L (15-37) Alanine Aminotransferase (ALT/SGPT) 9 U/L (16-63) Alkaline Phosphatase 115 U/L (46-116) Total Protein 7.0 g/dL (6.4-8.2) Albumin 2.7 g/dL (3.4-5.0) Albumin/Globulin Ratio 0.6 (1.0-1.7) Comment Review of Relevant I have reviewed the following items patrick (where applicable) has been applied. Labs Laboratory Tests Test 10/14/18 19:17 10/14/18 19:55 10/14/18 20:40 10/15/18 05:40 Sodium Level 138 mmol/L (136-145) Potassium Level 4.5 mmol/L (3.5-5.1) Chloride Level 100 mmol/L (98-107) Carbon Dioxide Level 29 mmol/L (21-32) Anion Gap 9 (6-14) Blood Urea Nitrogen 16 mg/dL (8-26) Creatinine 1.5 mg/dL (0.7-1.3) Estimated GFR (Cockcroft-Gault) 54.2 BUN/Creatinine Ratio 11 (6-20) Glucose Level 120 mg/dL (70-99) Lactic Acid Level 1.5 mmol/L (0.4-2.0) Calcium Level 9.6 mg/dL (8.5-10.1) Total Bilirubin 1.3 mg/dL (0.2-1.0) Aspartate Amino Transf (AST/SGOT) 15 U/L (15-37) Alanine Aminotransferase (ALT/SGPT) 10 U/L (16-63) Alkaline Phosphatase 154 U/L (46-116) Troponin I Quantitative 0.108 ng/mL (0.000-0.055) KT-Htk-S-Type Natriuretic Peptide 8198 pg/mL (0-449) Total Protein 8.8 g/dL (6.4-8.2) Albumin 3.3 g/dL (3.4-5.0) Albumin/Globulin Ratio 0.6 (1.0-1.7) Lipase 33 U/L (73-393) White Blood Count 6.4 x10^3/uL (4.0-11.0) Red Blood Count 4.99 x10^6/uL (4.30-5.70) Hemoglobin 12.7 g/dL (13.0-17.5) Hematocrit 41.1 % (39.0-53.0) Mean Corpuscular Volume 82 fL (79-100) Mean Corpuscular Hemoglobin 25 pg (25-35) Mean Corpuscular Hemoglobin Concent 31 g/dL (31-37) Red Cell Distribution Width 19.9 % (11.5-14.5) Platelet Count 156 x10^3/uL (140-400) Neutrophils (%) (Auto) 89 % (31-73) Lymphocytes (%) (Auto) 3 % (24-48) Monocytes (%) (Auto) 8 % (0-9) Eosinophils (%) (Auto) 0 % (0-3) Basophils (%) (Auto) 0 % (0-3) Neutrophils # (Auto) 5.6 x10^3uL (1.8-7.7) Lymphocytes # (Auto) 0.2 x10^3/uL (1.0-4.8) Monocytes # (Auto) 0.5 x10^3/uL (0.0-1.1) Eosinophils # (Auto) 0.0 x10^3/uL (0.0-0.7) Basophils # (Auto) 0.0 x10^3/uL (0.0-0.2) Segmented Neutrophils % 92 % (35-66) Band Neutrophils % 1 % (0-9) Lymphocytes % 2 % (24-48) Monocytes % 5 % (0-10) Platelet Estimate Adequate (ADEQUATE) Poikilocytosis Slight Anisocytosis Slight Schistocytes Occ Prothrombin Time 15.7 SEC (11.7-14.0) Prothromb Time International Ratio 1.3 (0.8-1.1) Urine Collection Type Unknown Urine Color Janelle Urine Clarity Cloudy Urine pH 6.0 Urine Specific [place] 1.025 Urine Protein >=300 mg/dL (NEG-TRACE) Urine Glucose (UA) Negative mg/dL (NEG) Urine Ketones (Stick) Trace mg/dL (NEG) Urine Blood Negative (NEG) Urine Nitrite Negative (NEG) Urine Bilirubin Small (NEG) Urine Urobilinogen Dipstick 1.0 mg/dL (0.2 mg/dL) Urine Leukocyte Esterase Negative (NEG) Urine RBC 0 /HPF (0-2) Urine WBC 5-10 /HPF (0-4) Urine Squamous Epithelial Cells Few /LPF Urine Bacteria 0 /HPF (0-FEW) Urine Hyaline Casts Few /HPF Urine Mucus Mod /LPF Nasal Screen MRSA (PCR) Positive (Negative) Test 10/15/18 06:00 10/16/18 04:25 Troponin I Quantitative 0.097 ng/mL (0.000-0.055) Triglycerides Level 46 mg/dL (0-150) Cholesterol Level 99 mg/dL (0-200) LDL Cholesterol, Calculated 41 mg/dL (0-100) VLDL Cholesterol, Calculated 9 mg/dL (0-40) Non-HDL Cholesterol Calculated 50 mg/dL (0-129) HDL Cholesterol 49 mg/dL (40-60) Cholesterol/HDL Ratio 2.0 Thyroid Stimulating Hormone (TSH) 4.511 uIU/mL (0.358-3.74) White Blood Count 6.0 x10^3/uL (4.0-11.0) Red Blood Count 4.71 x10^6/uL (4.30-5.70) Hemoglobin 12.2 g/dL (13.0-17.5) Hematocrit 39.9 % (39.0-53.0) Mean Corpuscular Volume 85 fL (79-100) Mean Corpuscular Hemoglobin 26 pg (25-35) Mean Corpuscular Hemoglobin Concent 30 g/dL (31-37) Red Cell Distribution Width 20.4 % (11.5-14.5) Platelet Count 136 x10^3/uL (140-400) Neutrophils (%) (Auto) 69 % (31-73) Lymphocytes (%) (Auto) 9 % (24-48) Monocytes (%) (Auto) 16 % (0-9) Eosinophils (%) (Auto) 5 % (0-3) Basophils (%) (Auto) 1 % (0-3) Neutrophils # (Auto) 4.1 x10^3uL (1.8-7.7) Lymphocytes # (Auto) 0.5 x10^3/uL (1.0-4.8) Monocytes # (Auto) 1.0 x10^3/uL (0.0-1.1) Eosinophils # (Auto) 0.3 x10^3/uL (0.0-0.7) Basophils # (Auto) 0.0 x10^3/uL (0.0-0.2) Sodium Level 142 mmol/L (136-145) Potassium Level 4.1 mmol/L (3.5-5.1) Chloride Level 108 mmol/L (98-107) Carbon Dioxide Level 22 mmol/L (21-32) Anion Gap 12 (6-14) Blood Urea Nitrogen 22 mg/dL (8-26) Creatinine 1.6 mg/dL (0.7-1.3) Estimated GFR (Cockcroft-Gault) 50.3 BUN/Creatinine Ratio 14 (6-20) Glucose Level 76 mg/dL (70-99) Calcium Level 8.8 mg/dL (8.5-10.1) Total Bilirubin 0.9 mg/dL (0.2-1.0) Aspartate Amino Transf (AST/SGOT) 19 U/L (15-37) Alanine Aminotransferase (ALT/SGPT) 9 U/L (16-63) Alkaline Phosphatase 115 U/L (46-116) Total Protein 7.0 g/dL (6.4-8.2) Albumin 2.7 g/dL (3.4-5.0) Albumin/Globulin Ratio 0.6 (1.0-1.7) Laboratory Tests Test 10/16/18 04:25 White Blood Count 6.0 x10^3/uL (4.0-11.0) Red Blood Count 4.71 x10^6/uL (4.30-5.70) Hemoglobin 12.2 g/dL (13.0-17.5) Hematocrit 39.9 % (39.0-53.0) Mean Corpuscular Volume 85 fL (79-100) Mean Corpuscular Hemoglobin 26 pg (25-35) Mean Corpuscular Hemoglobin Concent 30 g/dL (31-37) Red Cell Distribution Width 20.4 % (11.5-14.5) Platelet Count 136 x10^3/uL (140-400) Neutrophils (%) (Auto) 69 % (31-73) Lymphocytes (%) (Auto) 9 % (24-48) Monocytes (%) (Auto) 16 % (0-9) Eosinophils (%) (Auto) 5 % (0-3) Basophils (%) (Auto) 1 % (0-3) Neutrophils # (Auto) 4.1 x10^3uL (1.8-7.7) Lymphocytes # (Auto) 0.5 x10^3/uL (1.0-4.8) Monocytes # (Auto) 1.0 x10^3/uL (0.0-1.1) Eosinophils # (Auto) 0.3 x10^3/uL (0.0-0.7) Basophils # (Auto) 0.0 x10^3/uL (0.0-0.2) Sodium Level 142 mmol/L (136-145) Potassium Level 4.1 mmol/L (3.5-5.1) Chloride Level 108 mmol/L (98-107) Carbon Dioxide Level 22 mmol/L (21-32) Anion Gap 12 (6-14) Blood Urea Nitrogen 22 mg/dL (8-26) Creatinine 1.6 mg/dL (0.7-1.3) Estimated GFR (Cockcroft-Gault) 50.3 BUN/Creatinine Ratio 14 (6-20) Glucose Level 76 mg/dL (70-99) Calcium Level 8.8 mg/dL (8.5-10.1) Total Bilirubin 0.9 mg/dL (0.2-1.0) Aspartate Amino Transf (AST/SGOT) 19 U/L (15-37) Alanine Aminotransferase (ALT/SGPT) 9 U/L (16-63) Alkaline Phosphatase 115 U/L (46-116) Total Protein 7.0 g/dL (6.4-8.2) Albumin 2.7 g/dL (3.4-5.0) Albumin/Globulin Ratio 0.6 (1.0-1.7) Medications Current Medications Labetalol HCl (Normodyne Iv Push) 20 mg 1X ONCE IVP Last administered on at 19:26; Start 10/14/18 at 19:00; Stop 10/14/18 at 19:05; Status DC Ondansetron HCl (Zofran) 4 mg 1X ONCE IV Last administered on 10/14/18at 19:13 ; Start 10/14/18 at 19:00; Stop 10/14/18 at 19:05; Status DC Fentanyl Citrate (Fentanyl 2ml Vial) 50 mcg 1X ONCE IV Last administered on at 19:21; Start 10/14/18 at 19:00; Stop 10/14/18 at 19:05; Status DC Iohexol (Omnipaque 300 Mg/ml) 60 ml 1X ONCE IV Last administered on 10/14/18at 20:08; Start 10/14/18 at 20:00; Stop 10/14/18 at 20:01; Status DC Info (CONTRAST GIVEN -- Rx MONITORING) 1 each PRN DAILY PRN MC SEE COMMENTS; Start 10/14/18 at 20:00; Stop 10/16/18 at 19:59 Ondansetron HCl (Zofran) 4 mg PRN Q8HRS PRN IV NAUSEA/VOMITING 1ST CHOICE Last administered on 10/14/18at 22:31; Start 10/14/18 at 22:15; Stop 10/15/18 at 22:14 ; Status DC Morphine Sulfate (Morphine Sulfate) 4 mg PRN Q2HR PRN IV SEVERE PAIN; Start at 22:15; Stop 10/15/18 at 22:14; Status DC Sodium Chloride 1,000 ml @ 100 mls/hr Q10H IV Last administered on 10/15/18at 20:40; Start 10/14/18 at 22:30; Stop 10/15/18 at 22:29; Status DC Nitroglycerin (Nitro-Bid Oint) 1 inch 1X ONCE TP Last administered on at 22:42; Start 10/14/18 at 22:30; Stop 10/14/18 at 22:31; Status DC Labetalol HCl (Normodyne Iv Push) 20 mg PRN Q2HR PRN IVP HYPERTENSION, SEE COMMENTS Last administered on 10/15/18at 03:39; Start 10/14/18 at 23:00 Nystatin (Nystop) 1 amrik BID TP Last administered on 10/15/18at 20:41; Start at 09:00 Furosemide (Lasix) 20 mg DAILY PO ; Start 10/15/18 at 09:00; Stop 10/15/18 at 09 :00; Status DC Metoprolol Tartrate (Lopressor Vial) 5 mg Q6HRS IVP Last administered on at 02:31; Start 10/15/18 at 12:00 Haloperidol Lactate (Haldol Inj) 5 mg 1X ONCE IVP ; Start 10/15/18 at 22:00; Stop 10/15/18 at 23:18; Status DC Haloperidol Lactate (Haldol Inj) 5 mg 1X ONCE IM Last administered on at 02:31; Start 10/15/18 at 23:30; Stop 10/15/18 at 23:31; Status DC Enalaprilat (Vasotec Inj) 1.25 mg Q6HRS IVP ; Start 10/16/18 at 08:00 Active Scripts Active Cozaar (Losartan Potassium) 50 Mg Tablet 50 Mg PO DAILY 30 Days Prednisone (Prednisone) 10 Mg Tablet 10 Mg PO UD Take 3 tablets by mouth twice a day for 3 days, then take 2 tablets by mouth twice a day for 3 days, then take 1 tablet by mouth twice a day for 3 days, then take 1 tablet by mouth daily x 3 days, then stop. Allopurinol 100 Mg Tablet 1 Tab PO DAILY Colcrys (Colchicine) 0.6 Mg Tablet 0.6 Mg PO DAILY 30 Days Budesonide 0.5 Mg/2 Ml Ampul.neb 0.5 Mg NEB RTBID 30 Days Aspirin Ec (Aspirin) 81 Mg Tablet.dr 81 Mg PO DAILYWBKFT 30 Days Duoneb 0.5-3(2.5) Mg/3 Ml (Albuterol/Ipratropium) 3 Ml Ampul.neb 3 Ml NEB RTQID 30 Days Metoprolol Tartrate 50 Mg Tablet 2 Tab PO BID 30 Days Reported Potassium Chloride 20 Meq Tablet.er 20 Meq PO DAILY Miralax (Polyethylene Glycol 3350) 17 Gm Powd.pack 1 Packet PO PRN DAILY PRN Lortab 5-325 mg Tablet (Hydrocodone/Acetaminophen) 1 Each Tablet 1 Tab PO PRN Q4HRS PRN Tylenol (Acetaminophen) 325 Mg Tablet 1 Tab PO PRN Q6HRS PRN Spironolactone 25 Mg Tablet 1 Tab PO BID Clopidogrel (Clopidogrel Bisulfate) 75 Mg Tablet 1 Tab PO DAILY Famotidine 20 Mg Tablet 20 Mg PO HS Tamsulosin Hcl 0.4 Mg Cap.er.24h 0.4 Mg PO DAILY Vitals/I & O Vital Sign - Last 24 Hours 10/15/18 10/15/18 10/15/18 10/15/18 15:19 17:36 19:07 20:00 Temp 98.1 98.6 98.1 98.6 Pulse 70 68 70 Resp 18 16 B/P (MAP) 140/80 (100) 140/80 157/91 (113) Pulse Ox 97 98 O2 Delivery Room Air Room Air Room Air 10/16/18 10/16/18 10/16/18 10/16/18 00:00 02:13 02:31 08:00 Temp 98.4 98.4 Pulse 69 70 69 Resp 18 B/P (MAP) 187/98 171/103 (125) 187/98 Pulse Ox 95 O2 Delivery Room Air Room Air 10/16/18 11:00 Temp 97.6 97.6 Pulse 87 Resp 18 B/P (MAP) 209/116 (147) Pulse Ox 92 O2 Delivery Room Air Intake and Output 10/15/18 10/15/18 10/16/18 15:00 23:00 07:00 Intake Total 1445 ml Output Total 150 ml 250 ml Balance -150 ml 1195 ml LIANNA BAIG MD Oct 16, 2018 12:42
[2018-10-16 15:00] VITALS: BP 208/108
[2018-10-16] MEDS ORDERED: LISINOPRIL 10 MG TABLET PO ONE (15:30)
[2018-10-16] MEDS ORDERED: hydroCHLOROthiazide 12.5 MG CAPSULE PO ONE (15:30)
[2018-10-16] MEDS: LABETALOL 20 MG/4 ML DISP.SYRIN. IVP PRN (19:16)
[2018-10-16 19:33] VITALS: BP 219/105
[2018-10-16] MEDS ORDERED: METOPROLOL TART IMMED RELEASE 25 MG TABLET. PO SCH (23:00)
[2018-10-16 23:40] VITALS: BP 141/103
[2018-10-17] VITALS (76 sets, daily range): BP systolic 121–238; BP diastolic 45–141
[2018-10-17] MEDS ORDERED: METOPROLOL TARTRATE 5 MG/5 ML VIAL. IVP PRN (03:00)
[2018-10-17] MEDS: ENALAPRILAT 2.5 MG/2 ML VIAL. IVP SCH ×3 (03:02→14:04)
[2018-10-17] MEDS: niCARdipine 50 MG in IV NORMAL SALINE 250ML 250 ML IV PRN ×2 (03:50→20:21)
[2018-10-17 04:10] LABS: ALBUMIN 2.7 g/dL (3.4-5.0); ALBUMIN/GLOBULIN RATIO 0.6 (1.0-1.7); CALCIUM 8.5 mg/dL (8.5-10.1); CREATININE 1.6 mg/dL (0.7-1.3); GFR 50.3; POTASSIUM 3.8 mmol/L (3.5-5.1); TOTAL PROTEIN 7.3 g/dL (6.4-8.2)
[2018-10-17 04:19] LABS: BASO % 0 % (0-3); EOS # 0.2 x10^3/uL (0.0-0.7); EOS % 3 % (0-3); HEMATOCRIT 39.7 % (39.0-53.0); HEMOGLOBIN 12.2 g/dL (13.0-17.5); LYMPH # 0.6 x10^3/uL (1.0-4.8); LYMPH % 8 % (24-48); MEAN CORPUSCULAR HEMOGLOBIN 26 pg (25-35); MEAN CORPUSCULAR HGB CONC 31 g/dL (31-37); MEAN CORPUSCULAR VOLUME 83 fL (79-100); MONO # 1.1 x10^3/uL (0.0-1.1); MONO % 16 % (0-9); NEUT # 5.2 x10^3uL (1.8-7.7); NEUT % 73 % (31-73); PLATELET COUNT 151 x10^3/uL (140-400); RED BLOOD COUNT 4.77 x10^6/uL (4.30-5.70); RED CELL DISTRIBUTION WIDTH 20.2 % (11.5-14.5); WHITE BLOOD COUNT 7.1 x10^3/uL (4.0-11.0)
[2018-10-17] MEDS: METOPROLOL TARTRATE 5 MG/5 ML VIAL. IVP SCH ×3 (05:43→12:38)
--- NOTE | 2018-10-17 08:49 | NUR ---
[facility] following pt. [facility] faxed updated clinicals to Shellie. GUY GIMENEZ. Will continue to follow.
[2018-10-17] MEDS: NYSTATIN TOPICAL POWDER 15GM BOTTLE. TP SCH ×2 (09:07→20:34)
--- NOTE | 2018-10-17 09:55 | EKG ---
[facility] [address] [place] [id number] Test Date: 2018-10-14 Test Time: 18:48:09 Pat Name: DARYL WEBSTER Department: Room: 203 1 Gender: Curing Finisher: : 1935 Requested By: FLORIN GARCIA Order Number: [id number] Reading MD: Earnest Cruz MD Measurements Intervals [place] Rate: P: NH: QRS: QRSD: T: QT: QTc: Interpretive Statements PROBABLE V-PACED RHYTHM PVC Electronically Signed On 10-29-2018 10:20:15 [employer] by Earnest Cruz MD
--- NOTE | 2018-10-17 11:49 | PDOC ---
CARDIO Progress Notes Date and Time Date of Service 10/17/2018 Time of Evaluation 1130 Subjective Subjective: No Chest Pain, No shortness of breath, No Palpitations Vitals Vitals Vital Signs Date Time Temp Pulse Resp B/P (MAP) Pulse Ox O2 Delivery O2 Flow Rate FiO2 10/17/18 11:19 73 150/72 (98) 10/17/18 08:00 16 NonRebreather Mask 10/17/18 02:55 97.6 94 97.6 Weight Weight [ ] Input and Output Intake and Output Intake and Output 10/17/18 07:00 Intake Total 0 ml Balance 0 ml Intake Oral 0 ml # Voids 3 Laboratory Labs Laboratory Tests Test 10/17/18 03:10 10/17/18 03:40 White Blood Count 7.1 x10^3/uL (4.0-11.0) Red Blood Count 4.77 x10^6/uL (4.30-5.70) Hemoglobin 12.2 g/dL (13.0-17.5) Hematocrit 39.7 % (39.0-53.0) Mean Corpuscular Volume 83 fL (79-100) Mean Corpuscular Hemoglobin 26 pg (25-35) Mean Corpuscular Hemoglobin Concent 31 g/dL (31-37) Red Cell Distribution Width 20.2 % (11.5-14.5) Platelet Count 151 x10^3/uL (140-400) Neutrophils (%) (Auto) 73 % (31-73) Lymphocytes (%) (Auto) 8 % (24-48) Monocytes (%) (Auto) 16 % (0-9) Eosinophils (%) (Auto) 3 % (0-3) Basophils (%) (Auto) 0 % (0-3) Neutrophils # (Auto) 5.2 x10^3uL (1.8-7.7) Lymphocytes # (Auto) 0.6 x10^3/uL (1.0-4.8) Monocytes # (Auto) 1.1 x10^3/uL (0.0-1.1) Eosinophils # (Auto) 0.2 x10^3/uL (0.0-0.7) Basophils # (Auto) 0.0 x10^3/uL (0.0-0.2) Sodium Level 145 mmol/L (136-145) Potassium Level 3.8 mmol/L (3.5-5.1) Chloride Level 108 mmol/L (98-107) Carbon Dioxide Level 26 mmol/L (21-32) Anion Gap 11 (6-14) Blood Urea Nitrogen 23 mg/dL (8-26) Creatinine 1.6 mg/dL (0.7-1.3) Estimated GFR (Cockcroft-Gault) 50.3 BUN/Creatinine Ratio 14 (6-20) Glucose Level 76 mg/dL (70-99) Calcium Level 8.5 mg/dL (8.5-10.1) Total Bilirubin 1.0 mg/dL (0.2-1.0) Aspartate Amino Transf (AST/SGOT) 17 U/L (15-37) Alanine Aminotransferase (ALT/SGPT) 11 U/L (16-63) Alkaline Phosphatase 122 U/L (46-116) Total Protein 7.3 g/dL (6.4-8.2) Albumin 2.7 g/dL (3.4-5.0) Albumin/Globulin Ratio 0.6 (1.0-1.7) Microbiology Micro Microbiology 10/14/18 Urine Culture - Final, Complete 10/14/18 Urine Culture Result 1 (ANNE) - Final, Complete Physical Exam HEENT: Neck Supple W Full Motion Chest: Symmetric LUNGS: Other (diminishe dbases) Heart: RRR (paced with underlying AFIB) Abdomen: Soft N/T, Other (obese) Extremities: No Calf Tenderness, Other (trace Le edema) Neurology: alert, follow commands, confused (pleasant) Assessment Assessment 1. Abd pain/vomiting: CT noted with SBO, improving and transitioning to CL diet 2. Accelerated HTN: significant elevation last night prompting cardene infusion 3. Known COPD with moderate to severe pulmonary HTN 4. CKD: possible stage 3. Cr at 1.6 stable by comparison 5. Chronic diastolic CHF: compensated 6. Elevated troponin: Peaked at 0.1, Demand mediated, type 2, multifactorial as above. 7. Hx of CAD: unknown past imaging. No cardiac symptoms. 8. PPM in situ: placed due to SSS ([facility]), normal device function 9. AFIB: appears chronic. V paced with underlying AFIB. rate controlled. 10. Possible cirrhotic features: per CT. Defer to PCP 11. Morbid obesity/debility/WC bound/dementia: high risk for falls, Recommendations 1. Once CL diet is consistently tolerated then will DC cardene and IV routine BP regimen and transition to his regular home med including losartan/ metoprolol. Discussed with RN 2. Labetolol IV PRN. Resume antiplatelets and BP meds when able to take PO. May hold PLAVIX for now and resume once clear with general surgery. ASA for stroke prevention 3. Cardiac mcgrath, will maintain conservative measures with noted multiple comorbid conditions, age, and significant debility 4. Follow up with Dr. Cruz on December 14 at 9 AM YASHIRA SALMERON APRN Oct 17, 2018 11:49
--- NOTE | 2018-10-17 11:53 | PDOC ---
SURGICAL PROGRESS NOTE Subjective awake, responds to questions,mittens on, one-to-one nursing care in place Vital Signs Vital Signs Date Time Temp Pulse Resp B/P (MAP) Pulse Ox O2 Delivery O2 Flow Rate FiO2 10/17/18 11:47 70 153/80 (104) 10/17/18 08:00 16 NonRebreather Mask 10/17/18 02:55 97.6 94 97.6 I&O Intake and Output 10/17/18 06:59 Intake Total 0 ml Balance 0 ml Intake Oral 0 ml # Voids 3 PATIENT HAS A BAXTER: No General: Alert, No acute distress Abdomen: Soft, Other (obese, LLQ hernia contents soft, partially reducible) Labs Laboratory Tests Test 10/16/18 04:25 10/17/18 03:10 10/17/18 03:40 White Blood Count 6.0 x10^3/uL (4.0-11.0) 7.1 x10^3/uL (4.0-11.0) Red Blood Count 4.71 x10^6/uL (4.30-5.70) 4.77 x10^6/uL (4.30-5.70) Hemoglobin 12.2 g/dL (13.0-17.5) 12.2 g/dL (13.0-17.5) Hematocrit 39.9 % (39.0-53.0) 39.7 % (39.0-53.0) Mean Corpuscular Volume 85 fL (79-100) 83 fL (79-100) Mean Corpuscular Hemoglobin 26 pg (25-35) 26 pg (25-35) Mean Corpuscular Hemoglobin Concent 30 g/dL (31-37) 31 g/dL (31-37) Red Cell Distribution Width 20.4 % (11.5-14.5) 20.2 % (11.5-14.5) Platelet Count 136 x10^3/uL (140-400) 151 x10^3/uL (140-400) Neutrophils (%) (Auto) 69 % (31-73) 73 % (31-73) Lymphocytes (%) (Auto) 9 % (24-48) 8 % (24-48) Monocytes (%) (Auto) 16 % (0-9) 16 % (0-9) Eosinophils (%) (Auto) 5 % (0-3) 3 % (0-3) Basophils (%) (Auto) 1 % (0-3) 0 % (0-3) Neutrophils # (Auto) 4.1 x10^3uL (1.8-7.7) 5.2 x10^3uL (1.8-7.7) Lymphocytes # (Auto) 0.5 x10^3/uL (1.0-4.8) 0.6 x10^3/uL (1.0-4.8) Monocytes # (Auto) 1.0 x10^3/uL (0.0-1.1) 1.1 x10^3/uL (0.0-1.1) Eosinophils # (Auto) 0.3 x10^3/uL (0.0-0.7) 0.2 x10^3/uL (0.0-0.7) Basophils # (Auto) 0.0 x10^3/uL (0.0-0.2) 0.0 x10^3/uL (0.0-0.2) Sodium Level 142 mmol/L (136-145) 145 mmol/L (136-145) Potassium Level 4.1 mmol/L (3.5-5.1) 3.8 mmol/L (3.5-5.1) Chloride Level 108 mmol/L (98-107) 108 mmol/L (98-107) Carbon Dioxide Level 22 mmol/L (21-32) 26 mmol/L (21-32) Anion Gap 12 (6-14) 11 (6-14) Blood Urea Nitrogen 22 mg/dL (8-26) 23 mg/dL (8-26) Creatinine 1.6 mg/dL (0.7-1.3) 1.6 mg/dL (0.7-1.3) Estimated GFR (Cockcroft-Gault) 50.3 50.3 BUN/Creatinine Ratio 14 (6-20) 14 (6-20) Glucose Level 76 mg/dL (70-99) 76 mg/dL (70-99) Calcium Level 8.8 mg/dL (8.5-10.1) 8.5 mg/dL (8.5-10.1) Total Bilirubin 0.9 mg/dL (0.2-1.0) 1.0 mg/dL (0.2-1.0) Aspartate Amino Transf (AST/SGOT) 19 U/L (15-37) 17 U/L (15-37) Alanine Aminotransferase (ALT/SGPT) 9 U/L (16-63) 11 U/L (16-63) Alkaline Phosphatase 115 U/L (46-116) 122 U/L (46-116) Total Protein 7.0 g/dL (6.4-8.2) 7.3 g/dL (6.4-8.2) Albumin 2.7 g/dL (3.4-5.0) 2.7 g/dL (3.4-5.0) Albumin/Globulin Ratio 0.6 (1.0-1.7) 0.6 (1.0-1.7) Laboratory Tests Test 10/17/18 03:10 10/17/18 03:40 White Blood Count 7.1 x10^3/uL (4.0-11.0) Red Blood Count 4.77 x10^6/uL (4.30-5.70) Hemoglobin 12.2 g/dL (13.0-17.5) Hematocrit 39.7 % (39.0-53.0) Mean Corpuscular Volume 83 fL (79-100) Mean Corpuscular Hemoglobin 26 pg (25-35) Mean Corpuscular Hemoglobin Concent 31 g/dL (31-37) Red Cell Distribution Width 20.2 % (11.5-14.5) Platelet Count 151 x10^3/uL (140-400) Neutrophils (%) (Auto) 73 % (31-73) Lymphocytes (%) (Auto) 8 % (24-48) Monocytes (%) (Auto) 16 % (0-9) Eosinophils (%) (Auto) 3 % (0-3) Basophils (%) (Auto) 0 % (0-3) Neutrophils # (Auto) 5.2 x10^3uL (1.8-7.7) Lymphocytes # (Auto) 0.6 x10^3/uL (1.0-4.8) Monocytes # (Auto) 1.1 x10^3/uL (0.0-1.1) Eosinophils # (Auto) 0.2 x10^3/uL (0.0-0.7) Basophils # (Auto) 0.0 x10^3/uL (0.0-0.2) Sodium Level 145 mmol/L (136-145) Potassium Level 3.8 mmol/L (3.5-5.1) Chloride Level 108 mmol/L (98-107) Carbon Dioxide Level 26 mmol/L (21-32) Anion Gap 11 (6-14) Blood Urea Nitrogen 23 mg/dL (8-26) Creatinine 1.6 mg/dL (0.7-1.3) Estimated GFR (Cockcroft-Gault) 50.3 BUN/Creatinine Ratio 14 (6-20) Glucose Level 76 mg/dL (70-99) Calcium Level 8.5 mg/dL (8.5-10.1) Total Bilirubin 1.0 mg/dL (0.2-1.0) Aspartate Amino Transf (AST/SGOT) 17 U/L (15-37) Alanine Aminotransferase (ALT/SGPT) 11 U/L (16-63) Alkaline Phosphatase 122 U/L (46-116) Total Protein 7.3 g/dL (6.4-8.2) Albumin 2.7 g/dL (3.4-5.0) Albumin/Globulin Ratio 0.6 (1.0-1.7) Assessment/Plan pSBO, improving start clears, home meds except plavix d/w cardiology NO HUNT MD Oct 17, 2018 11:53
--- NOTE | 2018-10-17 12:00 | NUR ---
Wound Care: Multiple scabbed abrasions present to BLE. Multiple pictures in chart from admission. Loose scabs removed and open areas noted to R dorsal foot and L medial 1st metatarsal head (see detailed assessments). Wounds measured per protocol. Dressed with xeroform and foam dressings. Souris wound care instruction sheet left in room. No other open areas noted on head to toe assessment. Mt is alert to self only and remains on 1:1 observation. Wearing soft mitts to hands, no skin breakdown noted. Pt is able to change position independently at times, but is unable to follow instruction to do so routinely. Notified Pt nurse and 1:1 staff to assist with turning as frequently as pt will allow, approximately every 2 hours. Plan to follow up in one week 10/24/18
[2018-10-17] MEDS: METOPROLOL TART IMMED RELEASE 50 MG TABLET. PO SCH ×2 (12:33→20:20)
[2018-10-17] MEDS: ASPIRIN ENTERIC COATED 81 MG TABLET.DR. PO SCH (12:34)
[2018-10-17] MEDS ORDERED: LOSARTAN POTASSIUM 50 MG TABLET. PO SCH (13:00)
--- NOTE | 2018-10-17 13:24 | PDOC ---
SUBJECTIVE ROS Stable OBJECTIVE Vital Signs Vital Signs Date Time Temp Pulse Resp B/P (MAP) Pulse Ox O2 Delivery O2 Flow Rate FiO2 10/17/18 13:15 69 167/84 (111) 10/17/18 08:00 16 NonRebreather Mask 10/17/18 02:55 97.6 94 97.6 I & 0 Intake and Output 10/17/18 07:00 Intake Total 0 ml Balance 0 ml Intake Oral 0 ml # Voids 3 PHYSICAL EXAM Physical Exam GEN- NAD HEENT- OM moist neck Supple HEART: Distant S1, S2. LUNGS: Clear, Non labored ABDOMEN: Soft and obese, large hernia in the right lower quadrant. EXTREMITIES: excoriations on the skin LE edema + SKIN: rash on his abdomen Neuro- dementia - No Kate DIAGNOSIS/ASSESSMENT Assessment & Plan CKD stage 3- Stable renal function E-Lytes, acid base stable, Volume status stable UA- Proteinuria +, few wbc, No micr hematuria Abd pain/vomiting: CT noted with SBO, general surgery following Accelerated HTN: Card managing Known COPD with moderate to severe pulmonary HTN Chronic diastolic CHF: small bilateral pleural effusion otherwise clinically compensated PPM in situ: placed due to SSS ([facility]) Hx of AFIB; appears chronic. V Possible cirrhotic features: per CT. Defer to PCP COMMENT/RELEVANT DATA Meds Current Medications Medications (Trade) Dose Ordered Sig/Katrina Start Time Stop Time Status Last Admin Dose Admin Aspirin (Ecotrin) 81 mg [id number] 10/17/18 12:30 10/17/18 12:34 81 MG Enalaprilat (Vasotec Inj) 1.25 mg Q6HRS 10/16/18 08:00 10/17/18 05:43 1.25 MG Fentanyl Citrate (Fentanyl 2ml Vial) 50 mcg 1X ONCE 10/14/18 19:00 10/14/18 19:05 DC 10/14/18 19:21 50 MCG Furosemide (Lasix) 20 mg DAILY 10/15/18 09:00 10/15/18 09:00 DC Haloperidol Lactate (Haldol Inj) 5 mg 1X ONCE 10/15/18 23:30 10/15/18 23:31 DC 10/16/18 02:31 5 MG Hydrochlorothiazide (Microzide) 12.5 mg 1X ONCE 10/16/18 15:30 10/16/18 15:31 DC 10/16/18 15:10 12.5 MG Info (CONTRAST GIVEN -- Rx MONITORING) 1 each PRN DAILY PRN 10/14/18 20:00 10/16/18 19:59 DC Iohexol (Omnipaque 300 Mg/ml) 60 ml 1X ONCE 10/14/18 20:00 10/14/18 20:01 DC 10/14/18 20:08 60 ML Labetalol HCl (Normodyne Iv Push) 20 mg PRN Q2HR PRN 10/14/18 23:00 10/16/18 19:16 20 MG Lisinopril (Prinivil) 10 mg 1X ONCE 10/16/18 15:30 10/16/18 15:31 DC 10/16/18 15:10 10 MG Lorazepam (Ativan) 1 mg PRN Q8HRS PRN 10/16/18 20:30 10/16/18 22:40 1 MG Losartan Potassium (Cozaar) 50 mg DAILY 10/17/18 13:00 10/17/18 12:34 50 MG Metoprolol Tartrate (Lopressor Vial) 5 mg Q6HRS 10/17/18 06:00 10/17/18 12:26 DC 10/17/18 05:43 5 MG Metoprolol Tartrate (Lopressor) 100 mg BID 10/17/18 12:30 10/17/18 12:33 100 MG Morphine Sulfate (Morphine Sulfate) 4 mg PRN Q2HR PRN 10/14/18 22:15 10/15/18 22:14 DC Nicardipine HCl 50 mg/Sodium Chloride 250 ml @ 25 mls/hr CONT PRN 10/16/18 19:45 10/17/18 03:50 25 MLS/HR Nitroglycerin (Nitro-Bid Oint) 1 inch 1X ONCE 10/14/18 22:30 10/14/18 22:31 DC 10/14/18 22:42 1 INCH Nystatin (Nystop) 1 amrik BID 10/15/18 09:00 10/17/18 09:07 1 AMRIK Ondansetron HCl (Zofran) 4 mg PRN Q8HRS PRN 10/14/18 22:15 10/15/18 22:14 DC 10/14/18 22:31 4 MG Sodium Chloride 1,000 ml @ 100 mls/hr Q10H 10/14/18 22:30 10/15/18 22:29 DC 10/15/18 20:40 100 MLS/HR Lab Laboratory Tests Test 10/17/18 03:10 10/17/18 03:40 White Blood Count 7.1 x10^3/uL (4.0-11.0) Red Blood Count 4.77 x10^6/uL (4.30-5.70) Hemoglobin 12.2 g/dL (13.0-17.5) Hematocrit 39.7 % (39.0-53.0) Mean Corpuscular Volume 83 fL (79-100) Mean Corpuscular Hemoglobin 26 pg (25-35) Mean Corpuscular Hemoglobin Concent 31 g/dL (31-37) Red Cell Distribution Width 20.2 % (11.5-14.5) Platelet Count 151 x10^3/uL (140-400) Neutrophils (%) (Auto) 73 % (31-73) Lymphocytes (%) (Auto) 8 % (24-48) Monocytes (%) (Auto) 16 % (0-9) Eosinophils (%) (Auto) 3 % (0-3) Basophils (%) (Auto) 0 % (0-3) Neutrophils # (Auto) 5.2 x10^3uL (1.8-7.7) Lymphocytes # (Auto) 0.6 x10^3/uL (1.0-4.8) Monocytes # (Auto) 1.1 x10^3/uL (0.0-1.1) Eosinophils # (Auto) 0.2 x10^3/uL (0.0-0.7) Basophils # (Auto) 0.0 x10^3/uL (0.0-0.2) Sodium Level 145 mmol/L (136-145) Potassium Level 3.8 mmol/L (3.5-5.1) Chloride Level 108 mmol/L (98-107) Carbon Dioxide Level 26 mmol/L (21-32) Anion Gap 11 (6-14) Blood Urea Nitrogen 23 mg/dL (8-26) Creatinine 1.6 mg/dL (0.7-1.3) Estimated GFR (Cockcroft-Gault) 50.3 BUN/Creatinine Ratio 14 (6-20) Glucose Level 76 mg/dL (70-99) Calcium Level 8.5 mg/dL (8.5-10.1) Total Bilirubin 1.0 mg/dL (0.2-1.0) Aspartate Amino Transf (AST/SGOT) 17 U/L (15-37) Alanine Aminotransferase (ALT/SGPT) 11 U/L (16-63) Alkaline Phosphatase 122 U/L (46-116) Total Protein 7.3 g/dL (6.4-8.2) Albumin 2.7 g/dL (3.4-5.0) Albumin/Globulin Ratio 0.6 (1.0-1.7) Results All relevant outside records, renal labs, imaging studies, telemetry/EKG's were reviewed. CLAUDE LOVE MD Oct 17, 2018 13:24
--- NOTE | 2018-10-17 13:28 | PDOC ---
PROGRESS NOTES Chief Complaint Chief Complaint CKD stage 3- Stable renal function E-Lytes, acid base stable, Volume status stable Abd pain/vomiting: CT noted with SBO, general surgery following Proteinuria +, Accelerated HTN: continue with cardene drip COPD with moderate to severe pulmonary HTN Chronic diastolic CHF: small bilateral pleural effusion otherwise clinically compensated PPM in situ: placed due to SSS ([facility]) Hx of AFIB; permanent chronic in nature Plan: see orders follow recommendations from business solutions consultant. History of Present Illness History of Present Illness Patient lying in bed in no apparent distress, very restless night that required sedation. The patient currently is snoring finally has been able to have IV access and is currently on a Cardene drip to control his blood pressure.. Unable to have a meaningful interaction with the patient today Vitals Vitals Vital Signs Date Time Temp Pulse Resp B/P (MAP) Pulse Ox O2 Delivery O2 Flow Rate FiO2 10/17/18 13:15 69 167/84 (111) 10/17/18 08:00 16 NonRebreather Mask 10/17/18 02:55 97.6 94 97.6 Physical Exam Physical Exam Gen.: chronically ill appearing in no apparent distress Head: Normal shape atraumatic Eyes: Pupils equal reactive to light and accommodation, normal conjunctivae and lids Ears: Normal shape Nose: Normal shape no trauma Mouth: No exudates of the back of throat no thrush no lesions Neck: Supple no JVD no carotid bruit or lymphadenopathy no thyromegaly Chest: Lungs clear to auscultation with good inspiratory effort no crackles rales or rhonchi Cardiovascular: S1-S2 regular rhythm systolic murmurs gallops or rubs Abdomen: Bowel sounds hypoactive soft nontender no hepatosplenomegaly appreciated sign Extremities: No clubbing no cyanosis no edema peripheral pulses palpated bilaterally Neurological: Alert awake oriented in person time place and situation, cranial nerves II through XII intact, no motor or sensory deficits appreciated Psych: Appropriate mood, cooperative General: Alert, No acute distress Heart: Other (Vpaced with underlying afib) Abdomen: Soft, Other (obese, LLQ hernia contents soft, partially reducible) Extremities: Other (1+ bilateral LE pitting edema) Labs LABS Laboratory Tests Test 10/17/18 03:10 10/17/18 03:40 White Blood Count 7.1 x10^3/uL (4.0-11.0) Red Blood Count 4.77 x10^6/uL (4.30-5.70) Hemoglobin 12.2 g/dL (13.0-17.5) Hematocrit 39.7 % (39.0-53.0) Mean Corpuscular Volume 83 fL (79-100) Mean Corpuscular Hemoglobin 26 pg (25-35) Mean Corpuscular Hemoglobin Concent 31 g/dL (31-37) Red Cell Distribution Width 20.2 % (11.5-14.5) Platelet Count 151 x10^3/uL (140-400) Neutrophils (%) (Auto) 73 % (31-73) Lymphocytes (%) (Auto) 8 % (24-48) Monocytes (%) (Auto) 16 % (0-9) Eosinophils (%) (Auto) 3 % (0-3) Basophils (%) (Auto) 0 % (0-3) Neutrophils # (Auto) 5.2 x10^3uL (1.8-7.7) Lymphocytes # (Auto) 0.6 x10^3/uL (1.0-4.8) Monocytes # (Auto) 1.1 x10^3/uL (0.0-1.1) Eosinophils # (Auto) 0.2 x10^3/uL (0.0-0.7) Basophils # (Auto) 0.0 x10^3/uL (0.0-0.2) Sodium Level 145 mmol/L (136-145) Potassium Level 3.8 mmol/L (3.5-5.1) Chloride Level 108 mmol/L (98-107) Carbon Dioxide Level 26 mmol/L (21-32) Anion Gap 11 (6-14) Blood Urea Nitrogen 23 mg/dL (8-26) Creatinine 1.6 mg/dL (0.7-1.3) Estimated GFR (Cockcroft-Gault) 50.3 BUN/Creatinine Ratio 14 (6-20) Glucose Level 76 mg/dL (70-99) Calcium Level 8.5 mg/dL (8.5-10.1) Total Bilirubin 1.0 mg/dL (0.2-1.0) Aspartate Amino Transf (AST/SGOT) 17 U/L (15-37) Alanine Aminotransferase (ALT/SGPT) 11 U/L (16-63) Alkaline Phosphatase 122 U/L (46-116) Total Protein 7.3 g/dL (6.4-8.2) Albumin 2.7 g/dL (3.4-5.0) Albumin/Globulin Ratio 0.6 (1.0-1.7) Comment Review of Relevant I have reviewed the following items patrick (where applicable) has been applied. Labs Laboratory Tests Test 10/16/18 04:25 10/17/18 03:10 10/17/18 03:40 White Blood Count 6.0 x10^3/uL (4.0-11.0) 7.1 x10^3/uL (4.0-11.0) Red Blood Count 4.71 x10^6/uL (4.30-5.70) 4.77 x10^6/uL (4.30-5.70) Hemoglobin 12.2 g/dL (13.0-17.5) 12.2 g/dL (13.0-17.5) Hematocrit 39.9 % (39.0-53.0) 39.7 % (39.0-53.0) Mean Corpuscular Volume 85 fL (79-100) 83 fL (79-100) Mean Corpuscular Hemoglobin 26 pg (25-35) 26 pg (25-35) Mean Corpuscular Hemoglobin Concent 30 g/dL (31-37) 31 g/dL (31-37) Red Cell Distribution Width 20.4 % (11.5-14.5) 20.2 % (11.5-14.5) Platelet Count 136 x10^3/uL (140-400) 151 x10^3/uL (140-400) Neutrophils (%) (Auto) 69 % (31-73) 73 % (31-73) Lymphocytes (%) (Auto) 9 % (24-48) 8 % (24-48) Monocytes (%) (Auto) 16 % (0-9) 16 % (0-9) Eosinophils (%) (Auto) 5 % (0-3) 3 % (0-3) Basophils (%) (Auto) 1 % (0-3) 0 % (0-3) Neutrophils # (Auto) 4.1 x10^3uL (1.8-7.7) 5.2 x10^3uL (1.8-7.7) Lymphocytes # (Auto) 0.5 x10^3/uL (1.0-4.8) 0.6 x10^3/uL (1.0-4.8) Monocytes # (Auto) 1.0 x10^3/uL (0.0-1.1) 1.1 x10^3/uL (0.0-1.1) Eosinophils # (Auto) 0.3 x10^3/uL (0.0-0.7) 0.2 x10^3/uL (0.0-0.7) Basophils # (Auto) 0.0 x10^3/uL (0.0-0.2) 0.0 x10^3/uL (0.0-0.2) Sodium Level 142 mmol/L (136-145) 145 mmol/L (136-145) Potassium Level 4.1 mmol/L (3.5-5.1) 3.8 mmol/L (3.5-5.1) Chloride Level 108 mmol/L (98-107) 108 mmol/L (98-107) Carbon Dioxide Level 22 mmol/L (21-32) 26 mmol/L (21-32) Anion Gap 12 (6-14) 11 (6-14) Blood Urea Nitrogen 22 mg/dL (8-26) 23 mg/dL (8-26) Creatinine 1.6 mg/dL (0.7-1.3) 1.6 mg/dL (0.7-1.3) Estimated GFR (Cockcroft-Gault) 50.3 50.3 BUN/Creatinine Ratio 14 (6-20) 14 (6-20) Glucose Level 76 mg/dL (70-99) 76 mg/dL (70-99) Calcium Level 8.8 mg/dL (8.5-10.1) 8.5 mg/dL (8.5-10.1) Total Bilirubin 0.9 mg/dL (0.2-1.0) 1.0 mg/dL (0.2-1.0) Aspartate Amino Transf (AST/SGOT) 19 U/L (15-37) 17 U/L (15-37) Alanine Aminotransferase (ALT/SGPT) 9 U/L (16-63) 11 U/L (16-63) Alkaline Phosphatase 115 U/L (46-116) 122 U/L (46-116) Total Protein 7.0 g/dL (6.4-8.2) 7.3 g/dL (6.4-8.2) Albumin 2.7 g/dL (3.4-5.0) 2.7 g/dL (3.4-5.0) Albumin/Globulin Ratio 0.6 (1.0-1.7) 0.6 (1.0-1.7) Laboratory Tests Test 10/17/18 03:10 10/17/18 03:40 White Blood Count 7.1 x10^3/uL (4.0-11.0) Red Blood Count 4.77 x10^6/uL (4.30-5.70) Hemoglobin 12.2 g/dL (13.0-17.5) Hematocrit 39.7 % (39.0-53.0) Mean Corpuscular Volume 83 fL (79-100) Mean Corpuscular Hemoglobin 26 pg (25-35) Mean Corpuscular Hemoglobin Concent 31 g/dL (31-37) Red Cell Distribution Width 20.2 % (11.5-14.5) Platelet Count 151 x10^3/uL (140-400) Neutrophils (%) (Auto) 73 % (31-73) Lymphocytes (%) (Auto) 8 % (24-48) Monocytes (%) (Auto) 16 % (0-9) Eosinophils (%) (Auto) 3 % (0-3) Basophils (%) (Auto) 0 % (0-3) Neutrophils # (Auto) 5.2 x10^3uL (1.8-7.7) Lymphocytes # (Auto) 0.6 x10^3/uL (1.0-4.8) Monocytes # (Auto) 1.1 x10^3/uL (0.0-1.1) Eosinophils # (Auto) 0.2 x10^3/uL (0.0-0.7) Basophils # (Auto) 0.0 x10^3/uL (0.0-0.2) Sodium Level 145 mmol/L (136-145) Potassium Level 3.8 mmol/L (3.5-5.1) Chloride Level 108 mmol/L (98-107) Carbon Dioxide Level 26 mmol/L (21-32) Anion Gap 11 (6-14) Blood Urea Nitrogen 23 mg/dL (8-26) Creatinine 1.6 mg/dL (0.7-1.3) Estimated GFR (Cockcroft-Gault) 50.3 BUN/Creatinine Ratio 14 (6-20) Glucose Level 76 mg/dL (70-99) Calcium Level 8.5 mg/dL (8.5-10.1) Total Bilirubin 1.0 mg/dL (0.2-1.0) Aspartate Amino Transf (AST/SGOT) 17 U/L (15-37) Alanine Aminotransferase (ALT/SGPT) 11 U/L (16-63) Alkaline Phosphatase 122 U/L (46-116) Total Protein 7.3 g/dL (6.4-8.2) Albumin 2.7 g/dL (3.4-5.0) Albumin/Globulin Ratio 0.6 (1.0-1.7) Microbiology 10/14/18 Urine Culture - Final, Complete 10/14/18 Urine Culture Result 1 (ANNE) - Final, Complete Medications Current Medications Labetalol HCl (Normodyne Iv Push) 20 mg 1X ONCE IVP Last administered on at 19:26; Start 10/14/18 at 19:00; Stop 10/14/18 at 19:05; Status DC Ondansetron HCl (Zofran) 4 mg 1X ONCE IV Last administered on 10/14/18at 19:13 ; Start 10/14/18 at 19:00; Stop 10/14/18 at 19:05; Status DC Fentanyl Citrate (Fentanyl 2ml Vial) 50 mcg 1X ONCE IV Last administered on at 19:21; Start 10/14/18 at 19:00; Stop 10/14/18 at 19:05; Status DC Iohexol (Omnipaque 300 Mg/ml) 60 ml 1X ONCE IV Last administered on 10/14/18at 20:08; Start 10/14/18 at 20:00; Stop 10/14/18 at 20:01; Status DC Info (CONTRAST GIVEN -- Rx MONITORING) 1 each PRN DAILY PRN MC SEE COMMENTS; Start 10/14/18 at 20:00; Stop 10/16/18 at 19:59; Status DC Ondansetron HCl (Zofran) 4 mg PRN Q8HRS PRN IV NAUSEA/VOMITING 1ST CHOICE Last administered on 10/14/18at 22:31; Start 10/14/18 at 22:15; Stop 10/15/18 at 22:14 ; Status DC Morphine Sulfate (Morphine Sulfate) 4 mg PRN Q2HR PRN IV SEVERE PAIN; Start at 22:15; Stop 10/15/18 at 22:14; Status DC Sodium Chloride 1,000 ml @ 100 mls/hr Q10H IV Last administered on 10/15/18at 20:40; Start 10/14/18 at 22:30; Stop 10/15/18 at 22:29; Status DC Nitroglycerin (Nitro-Bid Oint) 1 inch 1X ONCE TP Last administered on at 22:42; Start 10/14/18 at 22:30; Stop 10/14/18 at 22:31; Status DC Labetalol HCl (Normodyne Iv Push) 20 mg PRN Q2HR PRN IVP HYPERTENSION, SEE COMMENTS Last administered on 10/16/18at 19:16; Start 10/14/18 at 23:00 Nystatin (Nystop) 1 amrik BID TP Last administered on 10/17/18 09:07; Start at 09:00 Furosemide (Lasix) 20 mg DAILY PO ; Start 10/15/18 at 09:00; Stop 10/15/18 at 09 :00; Status DC Metoprolol Tartrate (Lopressor Vial) 5 mg Q6HRS IVP Last administered on at 17:43; Start 10/15/18 at 12:00; Stop 10/17/18 at 02:51; Status DC Haloperidol Lactate (Haldol Inj) 5 mg 1X ONCE IVP ; Start 10/15/18 at 22:00; Stop 10/15/18 at 23:18; Status DC Haloperidol Lactate (Haldol Inj) 5 mg 1X ONCE IM Last administered on at 02:31; Start 10/15/18 at 23:30; Stop 10/15/18 at 23:31; Status DC Enalaprilat (Vasotec Inj) 1.25 mg Q6HRS IVP Last administered on 10/17/18at 05: 43; Start 10/16/18 at 08:00 Lisinopril (Prinivil) 10 mg 1X ONCE PO Last administered on 10/16/18 15:10; Start 10/16/18 at 15:30; Stop 10/16/18 at 15:31; Status DC Hydrochlorothiazide (Microzide) 12.5 mg 1X ONCE PO Last administered on at 15:10; Start 10/16/18 at 15:30; Stop 10/16/18 at 15:31; Status DC Nicardipine HCl 50 mg/Sodium Chloride 250 ml @ 25 mls/hr CONT PRN IV SEE I/O RECORD Last administered on 10/17/18at 03:50; Start 10/16/18 at 19:45 Lorazepam (Ativan) 1 mg PRN Q8HRS PRN IV ANXIETY / AGITATION Last administered on 10/16/18 22:40; Start 10/16/18 at 20:30 Metoprolol Tartrate (Lopressor) 25 mg BID PO Last administered on 10/16/18at 22: 59; Start 10/16/18 at 23:00; Stop 10/17/18 at 02:57; Status DC Metoprolol Tartrate (Lopressor Vial) 5 mg PRN Q6HRS PRN IVP HYPERTENSION IF IV AVAILABLE; Start 10/17/18 at 03:00; Status Cancel Metoprolol Tartrate (Lopressor Vial) 5 mg Q6HRS IVP Last administered on 05:43; Start 10/17/18 at 06:00; Stop 10/17/18 at 12:26; Status DC Aspirin (Ecotrin) 81 mg DAILYWBKFT PO Last administered on 10/17/18at 12:34; Start 10/17/18 at 12:30 Losartan Potassium (Cozaar) 50 mg DAILY PO Last administered on 10/17/18 12:34 ; Start 10/17/18 at 13:00 Metoprolol Tartrate (Lopressor) 100 mg BID PO Last administered on 10/17/18at 12 :33; Start 10/17/18 at 12:30 Active Scripts Active Cozaar (Losartan Potassium) 50 Mg Tablet 50 Mg PO DAILY 30 Days Prednisone (Prednisone) 10 Mg Tablet 10 Mg PO UD Take 3 tablets by mouth twice a day for 3 days, then take 2 tablets by mouth twice a day for 3 days, then take 1 tablet by mouth twice a day for 3 days, then take 1 tablet by mouth daily x 3 days, then stop. Allopurinol 100 Mg Tablet 1 Tab PO DAILY Colcrys (Colchicine) 0.6 Mg Tablet 0.6 Mg PO DAILY 30 Days Budesonide 0.5 Mg/2 Ml Ampul.neb 0.5 Mg NEB RTBID 30 Days Aspirin Ec (Aspirin) 81 Mg Tablet.dr 81 Mg PO DAILYWBKFT 30 Days Duoneb 0.5-3(2.5) Mg/3 Ml (Albuterol/Ipratropium) 3 Ml Ampul.neb 3 Ml NEB RTQID 30 Days Metoprolol Tartrate 50 Mg Tablet 2 Tab PO BID 30 Days Reported Potassium Chloride 20 Meq Tablet.er 20 Meq PO DAILY Miralax (Polyethylene Glycol 3350) 17 Gm Powd.pack 1 Packet PO PRN DAILY PRN Lortab 5-325 mg Tablet (Hydrocodone/Acetaminophen) 1 Each Tablet 1 Tab PO PRN Q4HRS PRN Tylenol (Acetaminophen) 325 Mg Tablet 1 Tab PO PRN Q6HRS PRN Spironolactone 25 Mg Tablet 1 Tab PO BID Clopidogrel (Clopidogrel Bisulfate) 75 Mg Tablet 1 Tab PO DAILY Famotidine 20 Mg Tablet 20 Mg PO HS Tamsulosin Hcl 0.4 Mg Cap.er.24h 0.4 Mg PO DAILY Vitals/I & O Vital Sign - Last 24 Hours 10/16/18 10/16/18 10/16/18 10/16/18 15:00 15:10 17:43 17:43 Temp 97.2 97.2 Pulse 74 87 73 73 Resp 20 B/P (MAP) 208/108 (141) 209/116 208/108 208/108 Pulse Ox 91 O2 Delivery Room Air 10/16/18 10/16/18 10/16/18 10/16/18 19:16 19:33 20:00 22:59 Pulse 66 73 73 Resp 20 B/P (MAP) 218/117 219/105 (143) 219/105 O2 Delivery Room Air Room Air 10/16/18 10/17/18 10/17/18 10/17/18 23:40 02:55 03:02 03:44 Temp 97.8 97.6 97.8 97.6 Pulse 70 133 133 172 Resp 18 25 B/P (MAP) 141/103 (116) 204/113 (143) 204/113 238/141 (173) Pulse Ox 94 O2 Delivery Room Air Room Air 10/17/18 10/17/18 10/17/18 10/17/18 03:57 04:02 04:02 04:10 Pulse 72 72 68 70 B/P (MAP) 191/91 (124) 160/86 (110) 160/86 (110) 163/77 (105) 10/17/18 10/17/18 10/17/18 10/17/18 04:10 04:12 04:17 04:24 Pulse 72 72 68 113 B/P (MAP) 163/77 (105) 158/81 (106) 163/83 (109) 157/79 (105) 10/17/18 10/17/18 10/17/18 10/17/18 04:29 04:39 04:49 05:01 Pulse 108 109 112 107 B/P (MAP) 149/45 (79) 161/78 (105) 159/80 (106) 142/85 (104) 10/17/18 10/17/18 10/17/18 10/17/18 05:10 05:20 05:31 05:39 Pulse 108 110 110 108 B/P (MAP) 136/78 (97) 136/92 (107) 167/105 (125) 152/76 (101) 10/17/18 10/17/18 10/17/18 10/17/18 05:43 05:43 05:49 05:59 Pulse 108 108 111 116 B/P (MAP) 152/76 152/76 164/80 (108) 144/95 (111) 10/17/18 10/17/18 10/17/18 10/17/18 06:09 06:19 06:29 06:39 Pulse 109 95 87 113 B/P (MAP) 151/81 (104) 155/66 (95) 128/69 (88) 151/94 (113) 10/17/18 10/17/18 10/17/18 10/17/18 06:49 06:59 07:09 07:24 Pulse 70 69 69 73 B/P (MAP) 153/79 (103) 151/104 (120) 204/130 (154) 157/76 (103) 10/17/18 10/17/18 10/17/18 10/17/18 07:29 07:39 07:49 08:00 Pulse 69 69 73 B/P (MAP) 159/81 (107) 142/87 (105) 125/89 (101) O2 Delivery Room Air 10/17/18 10/17/18 10/17/18 10/17/18 08:00 08:10 08:19 08:31 Pulse 69 69 73 73 Resp 16 B/P (MAP) 152/79 (103) 159/80 (106) 159/82 (107) 142/77 (98) O2 Delivery NonRebreather Mask 10/17/18 10/17/18 10/17/18 10/17/18 08:40 08:49 09:12 09:23 Pulse 72 69 69 72 B/P (MAP) 168/80 (109) 144/74 (97) 144/75 (98) 148/79 (102) 10/17/18 10/17/18 10/17/18 10/17/18 09:29 09:39 09:49 10:00 Pulse 69 68 69 75 B/P (MAP) 153/83 (106) 162/92 (115) 153/86 (108) 158/101 (120) 10/17/18 10/17/18 10/17/18 10/17/18 10:09 10:27 10:30 10:49 Pulse 71 68 73 69 B/P (MAP) 163/87 (112) 130/73 (92) 124/92 (103) 155/79 (104) 10/17/18 10/17/18 10/17/18 10/17/18 11:13 11:19 11:35 11:47 Pulse 69 73 71 70 B/P (MAP) 170/82 (111) 150/72 (98) 158/77 (104) 153/80 (104) 10/17/18 10/17/18 10/17/18 10/17/18 12:01 12:02 12:17 12:32 Pulse 71 70 69 79 B/P (MAP) 157/72 (100) 164/81 (108) 168/82 (110) 167/79 (108) 10/17/18 10/17/18 10/17/18 12:33 12:34 13:15 Pulse 79 79 69 B/P (MAP) 167/79 167/79 167/84 (111) Intake and Output 10/16/18 10/16/18 10/17/18 15:00 23:00 07:00 Intake Total 0 ml 0 ml Balance 0 ml 0 ml LIANNA BAIG MD Oct 17, 2018 13:28
[2018-10-17] MEDS ORDERED: NYST15PO9 TP (13:52)
[2018-10-17] MEDS ORDERED: MAGN400O7 PO (13:52)
[2018-10-17] MEDS ORDERED: FURO-69 PO (13:52)
[2018-10-17] MEDS ORDERED: MAGN400T22 PO (13:52)
[2018-10-17] MEDS ORDERED: LOSA100T14 PO (13:52)
[2018-10-17] MEDS ORDERED: LOSARTAN POTASSIUM 50 MG TABLET. PO ONE (14:00)
[2018-10-17] MEDS ORDERED: POLYETHYLENE GLYCOL 3350 17 GM PACKET. PO PRN (15:00)
[2018-10-17] MEDS: IPRATRPIUM/ALBUTEROL 0.5/2.5MG 3 ML NEBU. NEB SCH ×2 (16:23→19:32)
[2018-10-17] MEDS: MAGNESIUM OXIDE 400 MG TABLET PO SCH (20:20)
[2018-10-17] MEDS: FAMOTIDINE 20 MG TABLET. PO SCH (20:20)
[2018-10-18] VITALS (27 sets, daily range): BP systolic 131–190; BP diastolic 74–107
[2018-10-18 03:51] LABS: BASO % 1 % (0-3); EOS # 0.5 x10^3/uL (0.0-0.7); EOS % 7 % (0-3); HEMATOCRIT 40.8 % (39.0-53.0); HEMOGLOBIN 12.5 g/dL (13.0-17.5); LYMPH # 0.8 x10^3/uL (1.0-4.8); LYMPH % 11 % (24-48); MEAN CORPUSCULAR HEMOGLOBIN 25 pg (25-35); MEAN CORPUSCULAR HGB CONC 31 g/dL (31-37); MEAN CORPUSCULAR VOLUME 82 fL (79-100); MONO % 15 % (0-9); NEUT # 4.7 x10^3uL (1.8-7.7); NEUT % 67 % (31-73); PLATELET COUNT 163 x10^3/uL (140-400); RED BLOOD COUNT 4.96 x10^6/uL (4.30-5.70); RED CELL DISTRIBUTION WIDTH 20.1 % (11.5-14.5)
[2018-10-18 04:24] LABS: ALBUMIN/GLOBULIN RATIO 0.6 (1.0-1.7); CALCIUM 8.3 mg/dL (8.5-10.1); CREATININE 1.3 mg/dL (0.7-1.3); GFR 63.9; POTASSIUM 3.4 mmol/L (3.5-5.1); TOTAL BILIRUBIN 1.2 mg/dL (0.2-1.0); TOTAL PROTEIN 7.7 g/dL (6.4-8.2)
[2018-10-18] MEDS: IPRATRPIUM/ALBUTEROL 0.5/2.5MG 3 ML NEBU. NEB SCH ×4 (06:06→19:24)
[2018-10-18] MEDS: MAGNESIUM OXIDE 400 MG TABLET PO SCH ×2 (09:21→20:04)
[2018-10-18] MEDS: FUROSEMIDE 20 MG TABLET PO SCH (09:21)
[2018-10-18] MEDS: ASPIRIN ENTERIC COATED 81 MG TABLET.DR. PO SCH (09:21)
[2018-10-18] MEDS: METOPROLOL TART IMMED RELEASE 50 MG TABLET. PO SCH ×2 (09:22→20:04)
[2018-10-18] MEDS: POTASSIUM CHLORIDE 10 MEQ TABLET.ER. PO SCH (09:22)
[2018-10-18] MEDS: NYSTATIN TOPICAL POWDER 15GM BOTTLE. TP SCH ×2 (09:24→20:04)
--- NOTE | 2018-10-18 10:50 | PDOC ---
CARLOS MANUEL ALFREDO MAIL CLERK BILLS 10/18/18 1049: SURGICAL PROGRESS NOTE Subjective one on one care denies pain taking liquids unsure if flatus Vital Signs Vital Signs Date Time Temp Pulse Resp B/P (MAP) Pulse Ox O2 Delivery O2 Flow Rate FiO2 10/18/18 10:35 153/107 (122) 10/18/18 09:22 69 10/18/18 06:06 Room Air 10/18/18 03:01 96.8 20 92 96.8 I&O Intake and Output 10/18/18 07:00 Intake Total 2000 ml Output Total 1025 ml Balance 975 ml Intake Oral 2000 ml Output Urine Total 1025 ml # Voids 7 General: Alert, Oriented X3, Cooperative, No acute distress Abdomen: Soft, No tenderness Labs Laboratory Tests Test 10/17/18 03:10 10/17/18 03:40 10/18/18 03:30 White Blood Count 7.1 x10^3/uL (4.0-11.0) 7.0 x10^3/uL (4.0-11.0) Red Blood Count 4.77 x10^6/uL (4.30-5.70) 4.96 x10^6/uL (4.30-5.70) Hemoglobin 12.2 g/dL (13.0-17.5) 12.5 g/dL (13.0-17.5) Hematocrit 39.7 % (39.0-53.0) 40.8 % (39.0-53.0) Mean Corpuscular Volume 83 fL (79-100) 82 fL (79-100) Mean Corpuscular Hemoglobin 26 pg (25-35) 25 pg (25-35) Mean Corpuscular Hemoglobin Concent 31 g/dL (31-37) 31 g/dL (31-37) Red Cell Distribution Width 20.2 % (11.5-14.5) 20.1 % (11.5-14.5) Platelet Count 151 x10^3/uL (140-400) 163 x10^3/uL (140-400) Neutrophils (%) (Auto) 73 % (31-73) 67 % (31-73) Lymphocytes (%) (Auto) 8 % (24-48) 11 % (24-48) Monocytes (%) (Auto) 16 % (0-9) 15 % (0-9) Eosinophils (%) (Auto) 3 % (0-3) 7 % (0-3) Basophils (%) (Auto) 0 % (0-3) 1 % (0-3) Neutrophils # (Auto) 5.2 x10^3uL (1.8-7.7) 4.7 x10^3uL (1.8-7.7) Lymphocytes # (Auto) 0.6 x10^3/uL (1.0-4.8) 0.8 x10^3/uL (1.0-4.8) Monocytes # (Auto) 1.1 x10^3/uL (0.0-1.1) 1.0 x10^3/uL (0.0-1.1) Eosinophils # (Auto) 0.2 x10^3/uL (0.0-0.7) 0.5 x10^3/uL (0.0-0.7) Basophils # (Auto) 0.0 x10^3/uL (0.0-0.2) 0.0 x10^3/uL (0.0-0.2) Sodium Level 145 mmol/L (136-145) 141 mmol/L (136-145) Potassium Level 3.8 mmol/L (3.5-5.1) 3.4 mmol/L (3.5-5.1) Chloride Level 108 mmol/L (98-107) 104 mmol/L (98-107) Carbon Dioxide Level 26 mmol/L (21-32) 27 mmol/L (21-32) Anion Gap 11 (6-14) 10 (6-14) Blood Urea Nitrogen 23 mg/dL (8-26) 18 mg/dL (8-26) Creatinine 1.6 mg/dL (0.7-1.3) 1.3 mg/dL (0.7-1.3) Estimated GFR (Cockcroft-Gault) 50.3 63.9 BUN/Creatinine Ratio 14 (6-20) 14 (6-20) Glucose Level 76 mg/dL (70-99) 102 mg/dL (70-99) Calcium Level 8.5 mg/dL (8.5-10.1) 8.3 mg/dL (8.5-10.1) Total Bilirubin 1.0 mg/dL (0.2-1.0) 1.2 mg/dL (0.2-1.0) Aspartate Amino Transf (AST/SGOT) 17 U/L (15-37) 22 U/L (15-37) Alanine Aminotransferase (ALT/SGPT) 11 U/L (16-63) 11 U/L (16-63) Alkaline Phosphatase 122 U/L (46-116) 120 U/L (46-116) Total Protein 7.3 g/dL (6.4-8.2) 7.7 g/dL (6.4-8.2) Albumin 2.7 g/dL (3.4-5.0) 3.0 g/dL (3.4-5.0) Albumin/Globulin Ratio 0.6 (1.0-1.7) 0.6 (1.0-1.7) Laboratory Tests Test 10/18/18 03:30 White Blood Count 7.0 x10^3/uL (4.0-11.0) Red Blood Count 4.96 x10^6/uL (4.30-5.70) Hemoglobin 12.5 g/dL (13.0-17.5) Hematocrit 40.8 % (39.0-53.0) Mean Corpuscular Volume 82 fL (79-100) Mean Corpuscular Hemoglobin 25 pg (25-35) Mean Corpuscular Hemoglobin Concent 31 g/dL (31-37) Red Cell Distribution Width 20.1 % (11.5-14.5) Platelet Count 163 x10^3/uL (140-400) Neutrophils (%) (Auto) 67 % (31-73) Lymphocytes (%) (Auto) 11 % (24-48) Monocytes (%) (Auto) 15 % (0-9) Eosinophils (%) (Auto) 7 % (0-3) Basophils (%) (Auto) 1 % (0-3) Neutrophils # (Auto) 4.7 x10^3uL (1.8-7.7) Lymphocytes # (Auto) 0.8 x10^3/uL (1.0-4.8) Monocytes # (Auto) 1.0 x10^3/uL (0.0-1.1) Eosinophils # (Auto) 0.5 x10^3/uL (0.0-0.7) Basophils # (Auto) 0.0 x10^3/uL (0.0-0.2) Sodium Level 141 mmol/L (136-145) Potassium Level 3.4 mmol/L (3.5-5.1) Chloride Level 104 mmol/L (98-107) Carbon Dioxide Level 27 mmol/L (21-32) Anion Gap 10 (6-14) Blood Urea Nitrogen 18 mg/dL (8-26) Creatinine 1.3 mg/dL (0.7-1.3) Estimated GFR (Cockcroft-Gault) 63.9 BUN/Creatinine Ratio 14 (6-20) Glucose Level 102 mg/dL (70-99) Calcium Level 8.3 mg/dL (8.5-10.1) Total Bilirubin 1.2 mg/dL (0.2-1.0) Aspartate Amino Transf (AST/SGOT) 22 U/L (15-37) Alanine Aminotransferase (ALT/SGPT) 11 U/L (16-63) Alkaline Phosphatase 120 U/L (46-116) Total Protein 7.7 g/dL (6.4-8.2) Albumin 3.0 g/dL (3.4-5.0) Albumin/Globulin Ratio 0.6 (1.0-1.7) Assessment/Plan slow advancement of diet NO HUNT MD 10/18/18 1154: SURGICAL PROGRESS NOTE Assessment/Plan pt seen had a stool continue supportive care advance to fulls CARLOS MANUEL ALFREDO APRN Oct 18, 2018 10:49 NO HUNT MD Oct 18, 2018 11:54
--- NOTE | 2018-10-18 12:07 | PDOC ---
SUBJECTIVE ROS Stable OBJECTIVE Vital Signs Vital Signs Date Time Temp Pulse Resp B/P (MAP) Pulse Ox O2 Delivery O2 Flow Rate FiO2 10/18/18 11:00 70 138/92 (107) 10/18/18 08:00 Room Air 10/18/18 03:01 96.8 20 92 96.8 I & 0 Intake and Output 10/18/18 07:00 Intake Total 2000 ml Output Total 1025 ml Balance 975 ml Intake Oral 2000 ml Output Urine Total 1025 ml # Voids 7 PHYSICAL EXAM Physical Exam GEN- NAD HEENT- OM moist neck Supple HEART: Distant S1, S2. LUNGS: Clear, Non labored ABDOMEN: Soft and obese, large hernia in the right lower quadrant. EXTREMITIES: excoriations on the skin LE edema + SKIN: rash on his abdomen Neuro- dementia - No Kate DIAGNOSIS/ASSESSMENT Assessment & Plan CKD stage 3- Stable renal function E-Lytes, acid base stable, Volume status stable UA- Proteinuria +, few wbc, No micr hematuria Abd pain/vomiting: CT noted with SBO, general surgery following Accelerated HTN: Card managing Known COPD with moderate to severe pulmonary HTN Chronic diastolic CHF: small bilateral pleural effusion otherwise clinically compensated PPM in situ: placed due to SSS ([facility]) Hx of AFIB; appears chronic. V Possible cirrhotic features: per CT. Defer to PCP Will sign off COMMENT/RELEVANT DATA Meds Current Medications Medications (Trade) Dose Ordered Sig/Katrina Start Time Stop Time Status Last Admin Dose Admin Albuterol/ Ipratropium (Duoneb) 3 ml RTQID 10/17/18 16:00 10/18/18 12:05 3 ML Amlodipine Besylate (Norvasc) 10 mg DAILY 10/18/18 12:30 Aspirin (Ecotrin) 81 mg DAILYWBKFT 10/17/18 12:30 10/18/18 09:21 81 MG Enalaprilat (Vasotec Inj) 1.25 mg Q6HRS 10/16/18 08:00 10/17/18 14:08 DC 10/17/18 05:43 1.25 MG Famotidine (Pepcid) 20 mg HS 10/17/18 21:00 10/17/18 20:20 20 MG Fentanyl Citrate (Fentanyl 2ml Vial) 50 mcg 1X ONCE 10/14/18 19:00 10/14/18 19:05 DC 10/14/18 19:21 50 MCG Furosemide (Lasix) 20 mg DAILY 10/18/18 09:00 10/18/18 09:21 20 MG Haloperidol Lactate (Haldol Inj) 5 mg 1X ONCE 10/15/18 23:30 10/15/18 23:31 DC 10/16/18 02:31 5 MG Hydrochlorothiazide (Microzide) 12.5 mg 1X ONCE 10/16/18 15:30 10/16/18 15:31 DC 10/16/18 15:10 12.5 MG Info (CONTRAST GIVEN -- Rx MONITORING) 1 each PRN DAILY PRN 10/14/18 20:00 10/16/18 19:59 DC Iohexol (Omnipaque 300 Mg/ml) 60 ml 1X ONCE 10/14/18 20:00 10/14/18 20:01 DC 10/14/18 20:08 60 ML Labetalol HCl (Normodyne Iv Push) 20 mg PRN Q2HR PRN 10/14/18 23:00 10/16/18 19:16 20 MG Lisinopril (Prinivil) 10 mg 1X ONCE 10/16/18 15:30 10/16/18 15:31 DC 10/16/18 15:10 10 MG Lorazepam (Ativan) 1 mg PRN Q8HRS PRN 10/16/18 20:30 10/17/18 20:19 1 MG Losartan Potassium (Cozaar) 50 mg 1X ONCE 10/17/18 14:00 10/17/18 14:01 DC 10/17/18 14:14 50 MG Magnesium Oxide (Magnesium Oxide) 400 mg BID 10/17/18 21:00 10/18/18 09:21 400 MG Metoprolol Tartrate (Lopressor Vial) 5 mg Q6HRS 10/17/18 06:00 10/17/18 12:26 DC 10/17/18 05:43 5 MG Metoprolol Tartrate (Lopressor) 100 mg BID 10/17/18 12:30 10/18/18 09:22 100 MG Morphine Sulfate (Morphine Sulfate) 4 mg PRN Q2HR PRN 10/14/18 22:15 10/15/18 22:14 DC Nicardipine HCl 50 mg/Sodium Chloride 250 ml @ 25 mls/hr CONT PRN 10/16/18 19:45 10/17/18 20:21 262.5 MLS/HR Nitroglycerin (Nitro-Bid Oint) 1 inch 1X ONCE 10/14/18 22:30 10/14/18 22:31 DC 10/14/18 22:42 1 INCH Nystatin (Nystop) 1 amrik BID 10/15/18 09:00 10/18/18 09:24 1 AMRIK Ondansetron HCl (Zofran) 4 mg PRN Q8HRS PRN 10/14/18 22:15 10/15/18 22:14 DC 10/14/18 22:31 4 MG Polyethylene Glycol (miraLAX PACKET) 17 gm PRN DAILY PRN 10/17/18 15:00 Potassium Chloride (Klor-Con) 20 meq DAILYWBKFT 10/18/18 08:00 10/18/18 09:22 20 MEQ Sodium Chloride 1,000 ml @ 100 mls/hr Q10H 10/14/18 22:30 10/15/18 22:29 DC 10/15/18 20:40 100 MLS/HR Lab Laboratory Tests Test 10/18/18 03:30 White Blood Count 7.0 x10^3/uL (4.0-11.0) Red Blood Count 4.96 x10^6/uL (4.30-5.70) Hemoglobin 12.5 g/dL (13.0-17.5) Hematocrit 40.8 % (39.0-53.0) Mean Corpuscular Volume 82 fL (79-100) Mean Corpuscular Hemoglobin 25 pg (25-35) Mean Corpuscular Hemoglobin Concent 31 g/dL (31-37) Red Cell Distribution Width 20.1 % (11.5-14.5) Platelet Count 163 x10^3/uL (140-400) Neutrophils (%) (Auto) 67 % (31-73) Lymphocytes (%) (Auto) 11 % (24-48) Monocytes (%) (Auto) 15 % (0-9) Eosinophils (%) (Auto) 7 % (0-3) Basophils (%) (Auto) 1 % (0-3) Neutrophils # (Auto) 4.7 x10^3uL (1.8-7.7) Lymphocytes # (Auto) 0.8 x10^3/uL (1.0-4.8) Monocytes # (Auto) 1.0 x10^3/uL (0.0-1.1) Eosinophils # (Auto) 0.5 x10^3/uL (0.0-0.7) Basophils # (Auto) 0.0 x10^3/uL (0.0-0.2) Sodium Level 141 mmol/L (136-145) Potassium Level 3.4 mmol/L (3.5-5.1) Chloride Level 104 mmol/L (98-107) Carbon Dioxide Level 27 mmol/L (21-32) Anion Gap 10 (6-14) Blood Urea Nitrogen 18 mg/dL (8-26) Creatinine 1.3 mg/dL (0.7-1.3) Estimated GFR (Cockcroft-Gault) 63.9 BUN/Creatinine Ratio 14 (6-20) Glucose Level 102 mg/dL (70-99) Calcium Level 8.3 mg/dL (8.5-10.1) Total Bilirubin 1.2 mg/dL (0.2-1.0) Aspartate Amino Transf (AST/SGOT) 22 U/L (15-37) Alanine Aminotransferase (ALT/SGPT) 11 U/L (16-63) Alkaline Phosphatase 120 U/L (46-116) Total Protein 7.7 g/dL (6.4-8.2) Albumin 3.0 g/dL (3.4-5.0) Albumin/Globulin Ratio 0.6 (1.0-1.7) Results All relevant outside records, renal labs, imaging studies, telemetry/EKG's were reviewed. CLAUDE LOVE MD Oct 18, 2018 12:07
[2018-10-18] MEDS: LOSARTAN POTASSIUM 50 MG TABLET. PO SCH (13:51)
[2018-10-18] MEDS: amLODIPine BESYLATE 10 MG TABLET PO SCH (13:51)
--- NOTE | 2018-10-18 16:32 | PDOC ---
PROGRESS NOTES Chief Complaint Chief Complaint CKD stage 3- Stable renal function E-Lytes, acid base stable, Volume status stable Abd pain/vomiting: CT noted with SBO, general surgery following Proteinuria +, Accelerated HTN: continue with cardene drip COPD with moderate to severe pulmonary HTN Chronic diastolic CHF: small bilateral pleural effusion otherwise clinically compensated PPM in situ: placed due to SSS ([facility]) Hx of AFIB; permanent chronic in nature Plan: add amlodipine for BP control follow recommendations from cleaning validation consultant. History of Present Illness History of Present Illness Patient lying in bed in no apparent distress, very restless night that required sedation. The patient currently is snoring finally has been able to have IV access and is currently on a Cardene drip to control his blood pressure.Patient able to toelrate oral medications we will add amlodipine today to his regimen he had benzodiazepines and he is very lethargic. Unable to have a meaningful interaction with the patient today again Vitals Vitals Vital Signs Date Time Temp Pulse Resp B/P (MAP) Pulse Ox O2 Delivery O2 Flow Rate FiO2 10/18/18 15:50 Room Air 10/18/18 15:00 69 142/89 (106) 10/18/18 12:12 95 10/18/18 03:01 96.8 20 96.8 Physical Exam Physical Exam Gen.: chronically ill appearing in no apparent distress Head: Normal shape atraumatic Eyes: Pupils equal reactive to light and accommodation, normal conjunctivae and lids Ears: Normal shape Nose: Normal shape no trauma Mouth: No exudates of the back of throat no thrush no lesions Neck: Supple no JVD no carotid bruit or lymphadenopathy no thyromegaly Chest: Lungs clear to auscultation with good inspiratory effort no crackles rales or rhonchi Cardiovascular: S1-S2 regular rhythm systolic murmurs gallops or rubs Abdomen: Bowel sounds hypoactive soft nontender no hepatosplenomegaly appreciated sign Extremities: No clubbing no cyanosis no edema peripheral pulses palpated bilaterally Neurological: Alert awake oriented in person time place and situation, cranial nerves II through XII intact, no motor or sensory deficits appreciated Psych: Appropriate mood, cooperative General: Alert, Oriented X3, Cooperative, No acute distress Heart: Other (Vpaced with underlying afib) Abdomen: Soft, No tenderness Extremities: Other (1+ bilateral LE pitting edema) Labs LABS Laboratory Tests Test 10/18/18 03:30 White Blood Count 7.0 x10^3/uL (4.0-11.0) Red Blood Count 4.96 x10^6/uL (4.30-5.70) Hemoglobin 12.5 g/dL (13.0-17.5) Hematocrit 40.8 % (39.0-53.0) Mean Corpuscular Volume 82 fL (79-100) Mean Corpuscular Hemoglobin 25 pg (25-35) Mean Corpuscular Hemoglobin Concent 31 g/dL (31-37) Red Cell Distribution Width 20.1 % (11.5-14.5) Platelet Count 163 x10^3/uL (140-400) Neutrophils (%) (Auto) 67 % (31-73) Lymphocytes (%) (Auto) 11 % (24-48) Monocytes (%) (Auto) 15 % (0-9) Eosinophils (%) (Auto) 7 % (0-3) Basophils (%) (Auto) 1 % (0-3) Neutrophils # (Auto) 4.7 x10^3uL (1.8-7.7) Lymphocytes # (Auto) 0.8 x10^3/uL (1.0-4.8) Monocytes # (Auto) 1.0 x10^3/uL (0.0-1.1) Eosinophils # (Auto) 0.5 x10^3/uL (0.0-0.7) Basophils # (Auto) 0.0 x10^3/uL (0.0-0.2) Sodium Level 141 mmol/L (136-145) Potassium Level 3.4 mmol/L (3.5-5.1) Chloride Level 104 mmol/L (98-107) Carbon Dioxide Level 27 mmol/L (21-32) Anion Gap 10 (6-14) Blood Urea Nitrogen 18 mg/dL (8-26) Creatinine 1.3 mg/dL (0.7-1.3) Estimated GFR (Cockcroft-Gault) 63.9 BUN/Creatinine Ratio 14 (6-20) Glucose Level 102 mg/dL (70-99) Calcium Level 8.3 mg/dL (8.5-10.1) Total Bilirubin 1.2 mg/dL (0.2-1.0) Aspartate Amino Transf (AST/SGOT) 22 U/L (15-37) Alanine Aminotransferase (ALT/SGPT) 11 U/L (16-63) Alkaline Phosphatase 120 U/L (46-116) Total Protein 7.7 g/dL (6.4-8.2) Albumin 3.0 g/dL (3.4-5.0) Albumin/Globulin Ratio 0.6 (1.0-1.7) Comment Review of Relevant I have reviewed the following items patrick (where applicable) has been applied. Labs Laboratory Tests Test 10/17/18 03:10 10/17/18 03:40 10/18/18 03:30 White Blood Count 7.1 x10^3/uL (4.0-11.0) 7.0 x10^3/uL (4.0-11.0) Red Blood Count 4.77 x10^6/uL (4.30-5.70) 4.96 x10^6/uL (4.30-5.70) Hemoglobin 12.2 g/dL (13.0-17.5) 12.5 g/dL (13.0-17.5) Hematocrit 39.7 % (39.0-53.0) 40.8 % (39.0-53.0) Mean Corpuscular Volume 83 fL (79-100) 82 fL (79-100) Mean Corpuscular Hemoglobin 26 pg (25-35) 25 pg (25-35) Mean Corpuscular Hemoglobin Concent 31 g/dL (31-37) 31 g/dL (31-37) Red Cell Distribution Width 20.2 % (11.5-14.5) 20.1 % (11.5-14.5) Platelet Count 151 x10^3/uL (140-400) 163 x10^3/uL (140-400) Neutrophils (%) (Auto) 73 % (31-73) 67 % (31-73) Lymphocytes (%) (Auto) 8 % (24-48) 11 % (24-48) Monocytes (%) (Auto) 16 % (0-9) 15 % (0-9) Eosinophils (%) (Auto) 3 % (0-3) 7 % (0-3) Basophils (%) (Auto) 0 % (0-3) 1 % (0-3) Neutrophils # (Auto) 5.2 x10^3uL (1.8-7.7) 4.7 x10^3uL (1.8-7.7) Lymphocytes # (Auto) 0.6 x10^3/uL (1.0-4.8) 0.8 x10^3/uL (1.0-4.8) Monocytes # (Auto) 1.1 x10^3/uL (0.0-1.1) 1.0 x10^3/uL (0.0-1.1) Eosinophils # (Auto) 0.2 x10^3/uL (0.0-0.7) 0.5 x10^3/uL (0.0-0.7) Basophils # (Auto) 0.0 x10^3/uL (0.0-0.2) 0.0 x10^3/uL (0.0-0.2) Sodium Level 145 mmol/L (136-145) 141 mmol/L (136-145) Potassium Level 3.8 mmol/L (3.5-5.1) 3.4 mmol/L (3.5-5.1) Chloride Level 108 mmol/L (98-107) 104 mmol/L (98-107) Carbon Dioxide Level 26 mmol/L (21-32) 27 mmol/L (21-32) Anion Gap 11 (6-14) 10 (6-14) Blood Urea Nitrogen 23 mg/dL (8-26) 18 mg/dL (8-26) Creatinine 1.6 mg/dL (0.7-1.3) 1.3 mg/dL (0.7-1.3) Estimated GFR (Cockcroft-Gault) 50.3 63.9 BUN/Creatinine Ratio 14 (6-20) 14 (6-20) Glucose Level 76 mg/dL (70-99) 102 mg/dL (70-99) Calcium Level 8.5 mg/dL (8.5-10.1) 8.3 mg/dL (8.5-10.1) Total Bilirubin 1.0 mg/dL (0.2-1.0) 1.2 mg/dL (0.2-1.0) Aspartate Amino Transf (AST/SGOT) 17 U/L (15-37) 22 U/L (15-37) Alanine Aminotransferase (ALT/SGPT) 11 U/L (16-63) 11 U/L (16-63) Alkaline Phosphatase 122 U/L (46-116) 120 U/L (46-116) Total Protein 7.3 g/dL (6.4-8.2) 7.7 g/dL (6.4-8.2) Albumin 2.7 g/dL (3.4-5.0) 3.0 g/dL (3.4-5.0) Albumin/Globulin Ratio 0.6 (1.0-1.7) 0.6 (1.0-1.7) Laboratory Tests Test 10/18/18 03:30 White Blood Count 7.0 x10^3/uL (4.0-11.0) Red Blood Count 4.96 x10^6/uL (4.30-5.70) Hemoglobin 12.5 g/dL (13.0-17.5) Hematocrit 40.8 % (39.0-53.0) Mean Corpuscular Volume 82 fL (79-100) Mean Corpuscular Hemoglobin 25 pg (25-35) Mean Corpuscular Hemoglobin Concent 31 g/dL (31-37) Red Cell Distribution Width 20.1 % (11.5-14.5) Platelet Count 163 x10^3/uL (140-400) Neutrophils (%) (Auto) 67 % (31-73) Lymphocytes (%) (Auto) 11 % (24-48) Monocytes (%) (Auto) 15 % (0-9) Eosinophils (%) (Auto) 7 % (0-3) Basophils (%) (Auto) 1 % (0-3) Neutrophils # (Auto) 4.7 x10^3uL (1.8-7.7) Lymphocytes # (Auto) 0.8 x10^3/uL (1.0-4.8) Monocytes # (Auto) 1.0 x10^3/uL (0.0-1.1) Eosinophils # (Auto) 0.5 x10^3/uL (0.0-0.7) Basophils # (Auto) 0.0 x10^3/uL (0.0-0.2) Sodium Level 141 mmol/L (136-145) Potassium Level 3.4 mmol/L (3.5-5.1) Chloride Level 104 mmol/L (98-107) Carbon Dioxide Level 27 mmol/L (21-32) Anion Gap 10 (6-14) Blood Urea Nitrogen 18 mg/dL (8-26) Creatinine 1.3 mg/dL (0.7-1.3) Estimated GFR (Cockcroft-Gault) 63.9 BUN/Creatinine Ratio 14 (6-20) Glucose Level 102 mg/dL (70-99) Calcium Level 8.3 mg/dL (8.5-10.1) Total Bilirubin 1.2 mg/dL (0.2-1.0) Aspartate Amino Transf (AST/SGOT) 22 U/L (15-37) Alanine Aminotransferase (ALT/SGPT) 11 U/L (16-63) Alkaline Phosphatase 120 U/L (46-116) Total Protein 7.7 g/dL (6.4-8.2) Albumin 3.0 g/dL (3.4-5.0) Albumin/Globulin Ratio 0.6 (1.0-1.7) Microbiology 10/14/18 Urine Culture - Final, Complete 10/14/18 Urine Culture Result 1 (ANNE) - Final, Complete Medications Current Medications Labetalol HCl (Normodyne Iv Push) 20 mg 1X ONCE IVP Last administered on at 19:26; Start 10/14/18 at 19:00; Stop 10/14/18 at 19:05; Status DC Ondansetron HCl (Zofran) 4 mg 1X ONCE IV Last administered on 10/14/18at 19:13 ; Start 10/14/18 at 19:00; Stop 10/14/18 at 19:05; Status DC Fentanyl Citrate (Fentanyl 2ml Vial) 50 mcg 1X ONCE IV Last administered on at 19:21; Start 10/14/18 at 19:00; Stop 10/14/18 at 19:05; Status DC Iohexol (Omnipaque 300 Mg/ml) 60 ml 1X ONCE IV Last administered on 10/14/18at 20:08; Start 10/14/18 at 20:00; Stop 10/14/18 at 20:01; Status DC Info (CONTRAST GIVEN -- Rx MONITORING) 1 each PRN DAILY PRN MC SEE COMMENTS; Start 10/14/18 at 20:00; Stop 10/16/18 at 19:59; Status DC Ondansetron HCl (Zofran) 4 mg PRN Q8HRS PRN IV NAUSEA/VOMITING 1ST CHOICE Last administered on 10/14/18at 22:31; Start 10/14/18 at 22:15; Stop 10/15/18 at 22:14 ; Status DC Morphine Sulfate (Morphine Sulfate) 4 mg PRN Q2HR PRN IV SEVERE PAIN; Start at 22:15; Stop 10/15/18 at 22:14; Status DC Sodium Chloride 1,000 ml @ 100 mls/hr Q10H IV Last administered on 10/15/18at 20:40; Start 10/14/18 at 22:30; Stop 10/15/18 at 22:29; Status DC Nitroglycerin (Nitro-Bid Oint) 1 inch 1X ONCE TP Last administered on at 22:42; Start 10/14/18 at 22:30; Stop 10/14/18 at 22:31; Status DC Labetalol HCl (Normodyne Iv Push) 20 mg PRN Q2HR PRN IVP HYPERTENSION, SEE COMMENTS Last administered on 10/16/18at 19:16; Start 10/14/18 at 23:00 Nystatin (Nystop) 1 alberto BID TP Last administered on 10/18/18at 09:24; Start at 09:00 Furosemide (Lasix) 20 mg DAILY PO ; Start 10/15/18 at 09:00; Stop 10/15/18 at 09 :00; Status DC Metoprolol Tartrate (Lopressor Vial) 5 mg Q6HRS IVP Last administered on at 17:43; Start 10/15/18 at 12:00; Stop 10/17/18 at 02:51; Status DC Haloperidol Lactate (Haldol Inj) 5 mg 1X ONCE IVP ; Start 10/15/18 at 22:00; Stop 10/15/18 at 23:18; Status DC Haloperidol Lactate (Haldol Inj) 5 mg 1X ONCE IM Last administered on at 02:31; Start 10/15/18 at 23:30; Stop 10/15/18 at 23:31; Status DC Enalaprilat (Vasotec Inj) 1.25 mg Q6HRS IVP Last administered on 10/17/18 05: 43; Start 10/16/18 at 08:00; Stop 10/17/18 at 14:08; Status DC Lisinopril (Prinivil) 10 mg 1X ONCE PO Last administered on 10/16/18at 15:10; Start 10/16/18 at 15:30; Stop 10/16/18 at 15:31; Status DC Hydrochlorothiazide (Microzide) 12.5 mg 1X ONCE PO Last administered on at 15:10; Start 10/16/18 at 15:30; Stop 10/16/18 at 15:31; Status DC Nicardipine HCl 50 mg/Sodium Chloride 250 ml @ 25 mls/hr CONT PRN IV SEE I/O RECORD Last administered on 10/17/18at 20:21; Start 10/16/18 at 19:45 Lorazepam (Ativan) 1 mg PRN Q8HRS PRN IV ANXIETY / AGITATION Last administered on 10/17/18at 20:19; Start 10/16/18 at 20:30 Metoprolol Tartrate (Lopressor) 25 mg BID PO Last administered on 10/16/18at 22: 59; Start 10/16/18 at 23:00; Stop 10/17/18 at 02:57; Status DC Metoprolol Tartrate (Lopressor Vial) 5 mg PRN Q6HRS PRN IVP HYPERTENSION IF IV AVAILABLE; Start 10/17/18 at 03:00; Status Cancel Metoprolol Tartrate (Lopressor Vial) 5 mg Q6HRS IVP Last administered on at 05:43; Start 10/17/18 at 06:00; Stop 10/17/18 at 12:26; Status DC Aspirin (Ecotrin) 81 mg DAILYWBKFT PO Last administered on 10/18/18at 09:21; Start 10/17/18 at 12:30 Losartan Potassium (Cozaar) 50 mg DAILY PO Last administered on 10/17/18at 12:34 ; Start 10/17/18 at 13:00; Stop 10/17/18 at 13:56; Status DC Metoprolol Tartrate (Lopressor) 100 mg BID PO Last administered on 10/18/18at 09 :22; Start 10/17/18 at 12:30 Losartan Potassium (Cozaar) 100 mg DAILY PO Last administered on 10/18/18at 13: 51; Start 10/18/18 at 09:00 Losartan Potassium (Cozaar) 50 mg 1X ONCE PO Last administered on 10/17/18at 14 :14; Start 10/17/18 at 14:00; Stop 10/17/18 at 14:01; Status DC Famotidine (Pepcid) 20 mg HS PO Last administered on 10/17/18at 20:20; Start at 21:00 Furosemide (Lasix) 20 mg DAILY PO Last administered on 10/18/18 09:21; Start 10/18/18 at 09:00 Albuterol/ Ipratropium (Duoneb) 3 ml RTQID NEB Last administered on 10/18/18at 15:50; Start 10/17/18 at 16:00 Magnesium Oxide (Magnesium Oxide) 400 mg BID PO Last administered on 10/18/18 09:21; Start 10/17/18 at 21:00 Polyethylene Glycol (miraLAX PACKET) 17 gm PRN DAILY PRN PO CONSTIPATION; Start 10/17/18 at 15:00 Potassium Chloride (Klor-Con) 20 meq DAILYWBKFT PO Last administered on at 09:22; Start 10/18/18 at 08:00 Amlodipine Besylate (Norvasc) 10 mg DAILY PO Last administered on 10/18/18at 13: 51; Start 10/18/18 at 12:30 Active Scripts Active Colcrys (Colchicine) 0.6 Mg Tablet 0.6 Mg PO DAILY 30 Days Aspirin Ec (Aspirin) 81 Mg Tablet.dr 81 Mg PO DAILYWBKFT 30 Days Duoneb 0.5-3(2.5) Mg/3 Ml (Albuterol/Ipratropium) 3 Ml Ampul.neb 3 Ml NEB RTQID 30 Days Metoprolol Tartrate 50 Mg Tablet 2 Tab PO BID 30 Days Reported Nystatin 15 Gm Powder 1 Alberto TP BID Milk Of Magnesia (Magnesium Hydroxide) 400 Mg/5 Ml Oral.susp 400 Mg PO PRN DAILY PRN Mag-Oxide (Magnesium Oxide) 400 Mg Tablet 1 Tab PO BID Losartan Potassium 100 Mg Tablet 100 Mg PO DAILY Lasix (Furosemide) 20 Mg Tablet 1 Tab PO DAILY Potassium Chloride 20 Meq Tablet.er 20 Meq PO DAILY Miralax (Polyethylene Glycol 3350) 17 Gm Powd.pack 1 Packet PO PRN DAILY PRN Lortab 5-325 mg Tablet (Hydrocodone/Acetaminophen) 1 Each Tablet 1 Tab PO PRN Q4HRS PRN Tylenol (Acetaminophen) 325 Mg Tablet 1 Tab PO PRN Q6HRS PRN Famotidine 20 Mg Tablet 20 Mg PO HS Vitals/I & O Vital Sign - Last 24 Hours 10/17/18 10/17/18 10/17/18 10/17/18 16:25 16:30 17:04 17:08 Pulse 79 73 69 B/P (MAP) 160/78 (105) 207/103 (137) 153/84 (107) Pulse Ox 93 O2 Delivery Room Air 10/17/18 10/17/18 10/17/18 10/17/18 17:52 18:28 18:54 19:32 Temp 96.3 96.3 Pulse 71 69 69 Resp 20 18 B/P (MAP) 149/83 (105) 173/85 (114) 143/83 (103) O2 Delivery Room Air Room Air Room Air 10/17/18 10/17/18 10/17/18 10/17/18 19:42 20:06 20:20 20:32 Pulse 69 69 B/P (MAP) 143/83 160/85 (110) Pulse Ox 99 O2 Delivery Room Air Room Air 10/17/18 10/17/18 10/17/18 10/17/18 21:01 21:31 22:01 22:29 Pulse 69 73 69 69 B/P (MAP) 132/71 (91) 121/67 (85) 127/85 (99) 147/83 (104) 10/17/18 10/17/18 10/18/18 10/18/18 23:01 23:32 00:02 00:31 Temp 96.6 96.6 Pulse 65 69 69 69 Resp 20 B/P (MAP) 150/92 (111) 136/71 (92) 146/84 (104) 150/81 (104) Pulse Ox 97 O2 Delivery Room Air 10/18/18 10/18/18 10/18/18 10/18/18 01:01 01:33 01:59 02:29 Pulse 69 69 69 69 B/P (MAP) 154/88 (110) 146/92 (110) 158/93 (114) 162/85 (110) 10/18/18 10/18/18 10/18/18 10/18/18 03:01 03:31 04:01 04:31 Temp 96.8 96.8 Pulse 69 69 69 69 Resp 20 B/P (MAP) 160/86 (110) 150/85 (106) 151/96 (114) 159/84 (109) Pulse Ox 92 O2 Delivery Room Air 10/18/18 10/18/18 10/18/18 10/18/18 05:17 05:31 06:01 06:06 Pulse 69 69 69 B/P (MAP) 143/81 (101) 143/79 (100) 154/79 (104) O2 Delivery Room Air 10/18/18 10/18/18 10/18/18 10/18/18 06:31 06:59 07:31 08:00 Pulse 69 B/P (MAP) 156/80 (105) 131/74 (93) 142/84 (103) O2 Delivery Room Air 10/18/18 10/18/18 10/18/18 10/18/18 08:01 09:02 09:22 10:35 Pulse 69 B/P (MAP) 152/83 (106) 145/76 (99) 145/76 153/107 (122) 10/18/18 10/18/18 10/18/18 10/18/18 11:00 12:12 13:51 13:51 Pulse 70 69 70 B/P (MAP) 138/92 (107) 127/69 127/69 Pulse Ox 95 O2 Delivery Room Air 10/18/18 10/18/18 10/18/18 13:57 15:00 15:50 Pulse 69 B/P (MAP) 136/85 (102) 142/89 (106) O2 Delivery Room Air Intake and Output 10/17/18 10/17/18 10/18/18 14:59 22:59 06:59 Intake Total 420 ml 680 ml 900 ml Output Total 550 ml 100 ml 375 ml Balance -130 ml 580 ml 525 ml LIANNA BAIG MD Oct 18, 2018 16:32
[2018-10-18] MEDS: FAMOTIDINE 20 MG TABLET. PO SCH (20:04)
[2018-10-18] MEDS: LABETALOL 20 MG/4 ML DISP.SYRIN. IVP PRN (23:45)
[2018-10-19 03:00] VITALS: BP 167/94
[2018-10-19] MEDS: IPRATRPIUM/ALBUTEROL 0.5/2.5MG 3 ML NEBU. NEB SCH ×4 (06:48→20:40)
[2018-10-19 07:05] VITALS: BP 160/74
[2018-10-19] MEDS: ASPIRIN ENTERIC COATED 81 MG TABLET.DR. PO SCH (08:16)
[2018-10-19] MEDS: POTASSIUM CHLORIDE 10 MEQ TABLET.ER. PO SCH (08:17)
[2018-10-19] MEDS: FUROSEMIDE 20 MG TABLET PO SCH (08:18)
[2018-10-19] MEDS: amLODIPine BESYLATE 10 MG TABLET PO SCH (08:19)
[2018-10-19] MEDS: MAGNESIUM OXIDE 400 MG TABLET PO SCH ×2 (08:20→20:30)
[2018-10-19] MEDS: METOPROLOL TART IMMED RELEASE 50 MG TABLET. PO SCH ×2 (08:21→20:31)
[2018-10-19] MEDS: LOSARTAN POTASSIUM 50 MG TABLET. PO SCH (08:23)
[2018-10-19 09:45] LABS: BASO % 1 % (0-3); EOS # 0.4 x10^3/uL (0.0-0.7); EOS % 8 % (0-3); HEMATOCRIT 40.2 % (39.0-53.0); HEMOGLOBIN 12.5 g/dL (13.0-17.5); LYMPH # 0.6 x10^3/uL (1.0-4.8); LYMPH % 11 % (24-48); MEAN CORPUSCULAR HEMOGLOBIN 25 pg (25-35); MEAN CORPUSCULAR HGB CONC 31 g/dL (31-37); MEAN CORPUSCULAR VOLUME 81 fL (79-100); MONO # 0.8 x10^3/uL (0.0-1.1); MONO % 16 % (0-9); NEUT # 3.3 x10^3uL (1.8-7.7); NEUT % 64 % (31-73); PLATELET COUNT 152 x10^3/uL (140-400); RED BLOOD COUNT 4.93 x10^6/uL (4.30-5.70); RED CELL DISTRIBUTION WIDTH 19.7 % (11.5-14.5); WHITE BLOOD COUNT 5.2 x10^3/uL (4.0-11.0)
[2018-10-19 10:02] LABS: ALBUMIN 2.7 g/dL (3.4-5.0); ALBUMIN/GLOBULIN RATIO 0.6 (1.0-1.7); CALCIUM 8.4 mg/dL (8.5-10.1); CREATININE 1.2 mg/dL (0.7-1.3); GFR 70.1; POTASSIUM 3.2 mmol/L (3.5-5.1); TOTAL PROTEIN 7.2 g/dL (6.4-8.2)
[2018-10-19] MEDS ORDERED: ALBUTEROL SULFATE 2.5 MG/3 ML NEBU. NEB PRN (10:15)
[2018-10-19] MEDS ORDERED: hydrALAZINE 20 MG/ML VIAL. IVP PRN (10:15)
[2018-10-19] MEDS: NYSTATIN TOPICAL POWDER 15GM BOTTLE. TP SCH ×2 (10:15→20:31)
--- NOTE | 2018-10-19 10:41 | PDOC ---
CARLOS MANUEL ALFREDO FISH STRAIGHTENER 10/19/18 1041: SURGICAL PROGRESS NOTE Subjective resting tolerating clears Vital Signs Vital Signs Date Time Temp Pulse Resp B/P (MAP) Pulse Ox O2 Delivery O2 Flow Rate FiO2 10/19/18 10:35 96 Room Air 10/19/18 08:23 69 160/74 10/19/18 07:05 97.9 18 97.9 I&O Intake and Output 10/19/18 07:00 Output Total 250 ml Balance -250 ml Output Urine Total 250 ml # Voids 6 General: Cooperative, No acute distress Abdomen: Soft, No tenderness Labs Laboratory Tests Test 10/18/18 03:30 10/19/18 09:00 White Blood Count 7.0 x10^3/uL (4.0-11.0) 5.2 x10^3/uL (4.0-11.0) Red Blood Count 4.96 x10^6/uL (4.30-5.70) 4.93 x10^6/uL (4.30-5.70) Hemoglobin 12.5 g/dL (13.0-17.5) 12.5 g/dL (13.0-17.5) Hematocrit 40.8 % (39.0-53.0) 40.2 % (39.0-53.0) Mean Corpuscular Volume 82 fL (79-100) 81 fL (79-100) Mean Corpuscular Hemoglobin 25 pg (25-35) 25 pg (25-35) Mean Corpuscular Hemoglobin Concent 31 g/dL (31-37) 31 g/dL (31-37) Red Cell Distribution Width 20.1 % (11.5-14.5) 19.7 % (11.5-14.5) Platelet Count 163 x10^3/uL (140-400) 152 x10^3/uL (140-400) Neutrophils (%) (Auto) 67 % (31-73) 64 % (31-73) Lymphocytes (%) (Auto) 11 % (24-48) 11 % (24-48) Monocytes (%) (Auto) 15 % (0-9) 16 % (0-9) Eosinophils (%) (Auto) 7 % (0-3) 8 % (0-3) Basophils (%) (Auto) 1 % (0-3) 1 % (0-3) Neutrophils # (Auto) 4.7 x10^3uL (1.8-7.7) 3.3 x10^3uL (1.8-7.7) Lymphocytes # (Auto) 0.8 x10^3/uL (1.0-4.8) 0.6 x10^3/uL (1.0-4.8) Monocytes # (Auto) 1.0 x10^3/uL (0.0-1.1) 0.8 x10^3/uL (0.0-1.1) Eosinophils # (Auto) 0.5 x10^3/uL (0.0-0.7) 0.4 x10^3/uL (0.0-0.7) Basophils # (Auto) 0.0 x10^3/uL (0.0-0.2) 0.0 x10^3/uL (0.0-0.2) Sodium Level 141 mmol/L (136-145) 142 mmol/L (136-145) Potassium Level 3.4 mmol/L (3.5-5.1) 3.2 mmol/L (3.5-5.1) Chloride Level 104 mmol/L (98-107) 104 mmol/L (98-107) Carbon Dioxide Level 27 mmol/L (21-32) 28 mmol/L (21-32) Anion Gap 10 (6-14) 10 (6-14) Blood Urea Nitrogen 18 mg/dL (8-26) 12 mg/dL (8-26) Creatinine 1.3 mg/dL (0.7-1.3) 1.2 mg/dL (0.7-1.3) Estimated GFR (Cockcroft-Gault) 63.9 70.1 BUN/Creatinine Ratio 14 (6-20) 10 (6-20) Glucose Level 102 mg/dL (70-99) 127 mg/dL (70-99) Calcium Level 8.3 mg/dL (8.5-10.1) 8.4 mg/dL (8.5-10.1) Total Bilirubin 1.2 mg/dL (0.2-1.0) 1.0 mg/dL (0.2-1.0) Aspartate Amino Transf (AST/SGOT) 22 U/L (15-37) 14 U/L (15-37) Alanine Aminotransferase (ALT/SGPT) 11 U/L (16-63) 11 U/L (16-63) Alkaline Phosphatase 120 U/L (46-116) 114 U/L (46-116) Total Protein 7.7 g/dL (6.4-8.2) 7.2 g/dL (6.4-8.2) Albumin 3.0 g/dL (3.4-5.0) 2.7 g/dL (3.4-5.0) Albumin/Globulin Ratio 0.6 (1.0-1.7) 0.6 (1.0-1.7) Laboratory Tests Test 10/19/18 09:00 White Blood Count 5.2 x10^3/uL (4.0-11.0) Red Blood Count 4.93 x10^6/uL (4.30-5.70) Hemoglobin 12.5 g/dL (13.0-17.5) Hematocrit 40.2 % (39.0-53.0) Mean Corpuscular Volume 81 fL (79-100) Mean Corpuscular Hemoglobin 25 pg (25-35) Mean Corpuscular Hemoglobin Concent 31 g/dL (31-37) Red Cell Distribution Width 19.7 % (11.5-14.5) Platelet Count 152 x10^3/uL (140-400) Neutrophils (%) (Auto) 64 % (31-73) Lymphocytes (%) (Auto) 11 % (24-48) Monocytes (%) (Auto) 16 % (0-9) Eosinophils (%) (Auto) 8 % (0-3) Basophils (%) (Auto) 1 % (0-3) Neutrophils # (Auto) 3.3 x10^3uL (1.8-7.7) Lymphocytes # (Auto) 0.6 x10^3/uL (1.0-4.8) Monocytes # (Auto) 0.8 x10^3/uL (0.0-1.1) Eosinophils # (Auto) 0.4 x10^3/uL (0.0-0.7) Basophils # (Auto) 0.0 x10^3/uL (0.0-0.2) Sodium Level 142 mmol/L (136-145) Potassium Level 3.2 mmol/L (3.5-5.1) Chloride Level 104 mmol/L (98-107) Carbon Dioxide Level 28 mmol/L (21-32) Anion Gap 10 (6-14) Blood Urea Nitrogen 12 mg/dL (8-26) Creatinine 1.2 mg/dL (0.7-1.3) Estimated GFR (Cockcroft-Gault) 70.1 BUN/Creatinine Ratio 10 (6-20) Glucose Level 127 mg/dL (70-99) Calcium Level 8.4 mg/dL (8.5-10.1) Total Bilirubin 1.0 mg/dL (0.2-1.0) Aspartate Amino Transf (AST/SGOT) 14 U/L (15-37) Alanine Aminotransferase (ALT/SGPT) 11 U/L (16-63) Alkaline Phosphatase 114 U/L (46-116) Total Protein 7.2 g/dL (6.4-8.2) Albumin 2.7 g/dL (3.4-5.0) Albumin/Globulin Ratio 0.6 (1.0-1.7) Assessment/Plan advance diet NO HUNT MD 10/19/18 1400: SURGICAL PROGRESS NOTE Assessment/Plan pt seen and examined sleepy but awakens and responds to questions belly soft, non tender agree with above CARLOS MANUEL ALFREDO APRN Oct 19, 2018 10:41 NO HUNT MD Oct 19, 2018 14:00
[2018-10-19 11:19] VITALS: BP 148/79
--- NOTE | 2018-10-19 11:20 | NUR ---
SS following up with discharge planning. SS phoned and faxed clinical updates to Shellie, ; fax [phone], for pt to return to LTC placement. SS will await discharge orders and will proceed accordingly.
--- NOTE | 2018-10-19 11:31 | PDOC ---
PROGRESS NOTES Chief Complaint Chief Complaint CKD stage 3- Stable renal function improved E-Lytes, acid base stable, Volume status stable Abd pain/vomiting resolving. : CT noted with SBO, general surgery following Proteinuria +, Accelerated HTN: continue wtih current managment, add hydralazine PRN COPD with moderate to severe pulmonary HTN Chronic diastolic CHF: small bilateral pleural effusion otherwise clinically compensated PPM in situ: placed due to SSS ([facility]) Hx of AFIB; permanent chronic in nature Plan: advance diet reassess in the a m follow recommendations from senior health consultant. History of Present Illness History of Present Illness Patient more weak compared to yesterday. The patient does not exhibit neurological deficits his blood pressure is better controlled but still requiring to add another agent today. I have changed his Lasix to chlorthalidone and we will follow response we have added also hydralazine when necessary diet has been advanced by senior health consultant Vitals Vitals Vital Signs Date Time Temp Pulse Resp B/P (MAP) Pulse Ox O2 Delivery O2 Flow Rate FiO2 10/19/18 11:19 98.2 69 20 148/79 (102) 96 Room Air 98.2 Physical Exam Physical Exam Gen.: chronically ill appearing in no apparent distress Head: Normal shape atraumatic Eyes: Pupils equal reactive to light and accommodation, normal conjunctivae and lids Ears: Normal shape Nose: Normal shape no trauma Mouth: No exudates of the back of throat no thrush no lesions Neck: Supple no JVD no carotid bruit or lymphadenopathy no thyromegaly Chest: Lungs clear to auscultation with good inspiratory effort no crackles rales or rhonchi Cardiovascular: S1-S2 regular rhythm systolic murmurs gallops or rubs Abdomen: Bowel sounds hypoactive soft nontender no hepatosplenomegaly appreciated sign Extremities: No clubbing no cyanosis no edema peripheral pulses palpated bilaterally Neurological: Alert awake oriented in person time place and situation, cranial nerves II through XII intact, no motor or sensory deficits appreciated Psych: Appropriate mood, cooperative General: Cooperative, No acute distress Heart: Other (Vpaced with underlying afib) Abdomen: Soft, No tenderness Extremities: Other (1+ bilateral LE pitting edema) Labs LABS Laboratory Tests Test 10/19/18 09:00 White Blood Count 5.2 x10^3/uL (4.0-11.0) Red Blood Count 4.93 x10^6/uL (4.30-5.70) Hemoglobin 12.5 g/dL (13.0-17.5) Hematocrit 40.2 % (39.0-53.0) Mean Corpuscular Volume 81 fL (79-100) Mean Corpuscular Hemoglobin 25 pg (25-35) Mean Corpuscular Hemoglobin Concent 31 g/dL (31-37) Red Cell Distribution Width 19.7 % (11.5-14.5) Platelet Count 152 x10^3/uL (140-400) Neutrophils (%) (Auto) 64 % (31-73) Lymphocytes (%) (Auto) 11 % (24-48) Monocytes (%) (Auto) 16 % (0-9) Eosinophils (%) (Auto) 8 % (0-3) Basophils (%) (Auto) 1 % (0-3) Neutrophils # (Auto) 3.3 x10^3uL (1.8-7.7) Lymphocytes # (Auto) 0.6 x10^3/uL (1.0-4.8) Monocytes # (Auto) 0.8 x10^3/uL (0.0-1.1) Eosinophils # (Auto) 0.4 x10^3/uL (0.0-0.7) Basophils # (Auto) 0.0 x10^3/uL (0.0-0.2) Sodium Level 142 mmol/L (136-145) Potassium Level 3.2 mmol/L (3.5-5.1) Chloride Level 104 mmol/L (98-107) Carbon Dioxide Level 28 mmol/L (21-32) Anion Gap 10 (6-14) Blood Urea Nitrogen 12 mg/dL (8-26) Creatinine 1.2 mg/dL (0.7-1.3) Estimated GFR (Cockcroft-Gault) 70.1 BUN/Creatinine Ratio 10 (6-20) Glucose Level 127 mg/dL (70-99) Calcium Level 8.4 mg/dL (8.5-10.1) Total Bilirubin 1.0 mg/dL (0.2-1.0) Aspartate Amino Transf (AST/SGOT) 14 U/L (15-37) Alanine Aminotransferase (ALT/SGPT) 11 U/L (16-63) Alkaline Phosphatase 114 U/L (46-116) Total Protein 7.2 g/dL (6.4-8.2) Albumin 2.7 g/dL (3.4-5.0) Albumin/Globulin Ratio 0.6 (1.0-1.7) Comment Review of Relevant I have reviewed the following items patrick (where applicable) has been applied. Labs Laboratory Tests Test 10/18/18 03:30 10/19/18 09:00 White Blood Count 7.0 x10^3/uL (4.0-11.0) 5.2 x10^3/uL (4.0-11.0) Red Blood Count 4.96 x10^6/uL (4.30-5.70) 4.93 x10^6/uL (4.30-5.70) Hemoglobin 12.5 g/dL (13.0-17.5) 12.5 g/dL (13.0-17.5) Hematocrit 40.8 % (39.0-53.0) 40.2 % (39.0-53.0) Mean Corpuscular Volume 82 fL (79-100) 81 fL (79-100) Mean Corpuscular Hemoglobin 25 pg (25-35) 25 pg (25-35) Mean Corpuscular Hemoglobin Concent 31 g/dL (31-37) 31 g/dL (31-37) Red Cell Distribution Width 20.1 % (11.5-14.5) 19.7 % (11.5-14.5) Platelet Count 163 x10^3/uL (140-400) 152 x10^3/uL (140-400) Neutrophils (%) (Auto) 67 % (31-73) 64 % (31-73) Lymphocytes (%) (Auto) 11 % (24-48) 11 % (24-48) Monocytes (%) (Auto) 15 % (0-9) 16 % (0-9) Eosinophils (%) (Auto) 7 % (0-3) 8 % (0-3) Basophils (%) (Auto) 1 % (0-3) 1 % (0-3) Neutrophils # (Auto) 4.7 x10^3uL (1.8-7.7) 3.3 x10^3uL (1.8-7.7) Lymphocytes # (Auto) 0.8 x10^3/uL (1.0-4.8) 0.6 x10^3/uL (1.0-4.8) Monocytes # (Auto) 1.0 x10^3/uL (0.0-1.1) 0.8 x10^3/uL (0.0-1.1) Eosinophils # (Auto) 0.5 x10^3/uL (0.0-0.7) 0.4 x10^3/uL (0.0-0.7) Basophils # (Auto) 0.0 x10^3/uL (0.0-0.2) 0.0 x10^3/uL (0.0-0.2) Sodium Level 141 mmol/L (136-145) 142 mmol/L (136-145) Potassium Level 3.4 mmol/L (3.5-5.1) 3.2 mmol/L (3.5-5.1) Chloride Level 104 mmol/L (98-107) 104 mmol/L (98-107) Carbon Dioxide Level 27 mmol/L (21-32) 28 mmol/L (21-32) Anion Gap 10 (6-14) 10 (6-14) Blood Urea Nitrogen 18 mg/dL (8-26) 12 mg/dL (8-26) Creatinine 1.3 mg/dL (0.7-1.3) 1.2 mg/dL (0.7-1.3) Estimated GFR (Cockcroft-Gault) 63.9 70.1 BUN/Creatinine Ratio 14 (6-20) 10 (6-20) Glucose Level 102 mg/dL (70-99) 127 mg/dL (70-99) Calcium Level 8.3 mg/dL (8.5-10.1) 8.4 mg/dL (8.5-10.1) Total Bilirubin 1.2 mg/dL (0.2-1.0) 1.0 mg/dL (0.2-1.0) Aspartate Amino Transf (AST/SGOT) 22 U/L (15-37) 14 U/L (15-37) Alanine Aminotransferase (ALT/SGPT) 11 U/L (16-63) 11 U/L (16-63) Alkaline Phosphatase 120 U/L (46-116) 114 U/L (46-116) Total Protein 7.7 g/dL (6.4-8.2) 7.2 g/dL (6.4-8.2) Albumin 3.0 g/dL (3.4-5.0) 2.7 g/dL (3.4-5.0) Albumin/Globulin Ratio 0.6 (1.0-1.7) 0.6 (1.0-1.7) Laboratory Tests Test 10/19/18 09:00 White Blood Count 5.2 x10^3/uL (4.0-11.0) Red Blood Count 4.93 x10^6/uL (4.30-5.70) Hemoglobin 12.5 g/dL (13.0-17.5) Hematocrit 40.2 % (39.0-53.0) Mean Corpuscular Volume 81 fL (79-100) Mean Corpuscular Hemoglobin 25 pg (25-35) Mean Corpuscular Hemoglobin Concent 31 g/dL (31-37) Red Cell Distribution Width 19.7 % (11.5-14.5) Platelet Count 152 x10^3/uL (140-400) Neutrophils (%) (Auto) 64 % (31-73) Lymphocytes (%) (Auto) 11 % (24-48) Monocytes (%) (Auto) 16 % (0-9) Eosinophils (%) (Auto) 8 % (0-3) Basophils (%) (Auto) 1 % (0-3) Neutrophils # (Auto) 3.3 x10^3uL (1.8-7.7) Lymphocytes # (Auto) 0.6 x10^3/uL (1.0-4.8) Monocytes # (Auto) 0.8 x10^3/uL (0.0-1.1) Eosinophils # (Auto) 0.4 x10^3/uL (0.0-0.7) Basophils # (Auto) 0.0 x10^3/uL (0.0-0.2) Sodium Level 142 mmol/L (136-145) Potassium Level 3.2 mmol/L (3.5-5.1) Chloride Level 104 mmol/L (98-107) Carbon Dioxide Level 28 mmol/L (21-32) Anion Gap 10 (6-14) Blood Urea Nitrogen 12 mg/dL (8-26) Creatinine 1.2 mg/dL (0.7-1.3) Estimated GFR (Cockcroft-Gault) 70.1 BUN/Creatinine Ratio 10 (6-20) Glucose Level 127 mg/dL (70-99) Calcium Level 8.4 mg/dL (8.5-10.1) Total Bilirubin 1.0 mg/dL (0.2-1.0) Aspartate Amino Transf (AST/SGOT) 14 U/L (15-37) Alanine Aminotransferase (ALT/SGPT) 11 U/L (16-63) Alkaline Phosphatase 114 U/L (46-116) Total Protein 7.2 g/dL (6.4-8.2) Albumin 2.7 g/dL (3.4-5.0) Albumin/Globulin Ratio 0.6 (1.0-1.7) Microbiology 10/14/18 Urine Culture - Final, Complete 10/14/18 Urine Culture Result 1 (ANNE) - Final, Complete Medications Current Medications Labetalol HCl (Normodyne Iv Push) 20 mg 1X ONCE IVP Last administered on at 19:26; Start 10/14/18 at 19:00; Stop 10/14/18 at 19:05; Status DC Ondansetron HCl (Zofran) 4 mg 1X ONCE IV Last administered on 10/14/18at 19:13 ; Start 10/14/18 at 19:00; Stop 10/14/18 at 19:05; Status DC Fentanyl Citrate (Fentanyl 2ml Vial) 50 mcg 1X ONCE IV Last administered on at 19:21; Start 10/14/18 at 19:00; Stop 10/14/18 at 19:05; Status DC Iohexol (Omnipaque 300 Mg/ml) 60 ml 1X ONCE IV Last administered on 10/14/18at 20:08; Start 10/14/18 at 20:00; Stop 10/14/18 at 20:01; Status DC Info (CONTRAST GIVEN -- Rx MONITORING) 1 each PRN DAILY PRN MC SEE COMMENTS; Start 10/14/18 at 20:00; Stop 10/16/18 at 19:59; Status DC Ondansetron HCl (Zofran) 4 mg PRN Q8HRS PRN IV NAUSEA/VOMITING 1ST CHOICE Last administered on 10/14/18at 22:31; Start 10/14/18 at 22:15; Stop 10/15/18 at 22:14 ; Status DC Morphine Sulfate (Morphine Sulfate) 4 mg PRN Q2HR PRN IV SEVERE PAIN; Start at 22:15; Stop 10/15/18 at 22:14; Status DC Sodium Chloride 1,000 ml @ 100 mls/hr Q10H IV Last administered on 10/15/18at 20:40; Start 10/14/18 at 22:30; Stop 10/15/18 at 22:29; Status DC Nitroglycerin (Nitro-Bid Oint) 1 inch 1X ONCE TP Last administered on at 22:42; Start 10/14/18 at 22:30; Stop 10/14/18 at 22:31; Status DC Labetalol HCl (Normodyne Iv Push) 20 mg PRN Q2HR PRN IVP HYPERTENSION, SEE COMMENTS Last administered on 10/18/18at 23:45; Start 10/14/18 at 23:00 Nystatin (Nystop) 1 alberto BID TP Last administered on 10/19/18at 10:15; Start at 09:00 Furosemide (Lasix) 20 mg DAILY PO ; Start 10/15/18 at 09:00; Stop 10/15/18 at 09 :00; Status DC Metoprolol Tartrate (Lopressor Vial) 5 mg Q6HRS IVP Last administered on at 17:43; Start 10/15/18 at 12:00; Stop 10/17/18 at 02:51; Status DC Haloperidol Lactate (Haldol Inj) 5 mg 1X ONCE IVP ; Start 10/15/18 at 22:00; Stop 10/15/18 at 23:18; Status DC Haloperidol Lactate (Haldol Inj) 5 mg 1X ONCE IM Last administered on at 02:31; Start 10/15/18 at 23:30; Stop 10/15/18 at 23:31; Status DC Enalaprilat (Vasotec Inj) 1.25 mg Q6HRS IVP Last administered on 10/17/18at 05: 43; Start 10/16/18 at 08:00; Stop 10/17/18 at 14:08; Status DC Lisinopril (Prinivil) 10 mg 1X ONCE PO Last administered on 10/16/18at 15:10; Start 10/16/18 at 15:30; Stop 10/16/18 at 15:31; Status DC Hydrochlorothiazide (Microzide) 12.5 mg 1X ONCE PO Last administered on at 15:10; Start 10/16/18 at 15:30; Stop 10/16/18 at 15:31; Status DC Nicardipine HCl 50 mg/Sodium Chloride 250 ml @ 25 mls/hr CONT PRN IV SEE I/O RECORD Last administered on 10/17/18at 20:21; Start 10/16/18 at 19:45 Lorazepam (Ativan) 1 mg PRN Q8HRS PRN IV ANXIETY / AGITATION Last administered on 10/17/18at 20:19; Start 10/16/18 at 20:30 Metoprolol Tartrate (Lopressor) 25 mg BID PO Last administered on 10/16/18at 22: 59; Start 10/16/18 at 23:00; Stop 10/17/18 at 02:57; Status DC Metoprolol Tartrate (Lopressor Vial) 5 mg PRN Q6HRS PRN IVP HYPERTENSION IF IV AVAILABLE; Start 10/17/18 at 03:00; Status Cancel Metoprolol Tartrate (Lopressor Vial) 5 mg Q6HRS IVP Last administered on at 05:43; Start 10/17/18 at 06:00; Stop 10/17/18 at 12:26; Status DC Aspirin (Ecotrin) 81 mg DAILYWBKFT PO Last administered on 10/19/18at 08:16; Start 10/17/18 at 12:30 Losartan Potassium (Cozaar) 50 mg DAILY PO Last administered on 10/17/18at 12:34 ; Start 10/17/18 at 13:00; Stop 10/17/18 at 13:56; Status DC Metoprolol Tartrate (Lopressor) 100 mg BID PO Last administered on 10/19/18at 08 :21; Start 10/17/18 at 12:30 Losartan Potassium (Cozaar) 100 mg DAILY PO Last administered on 10/19/18at 08: 23; Start 10/18/18 at 09:00 Losartan Potassium (Cozaar) 50 mg 1X ONCE PO Last administered on 10/17/18at 14 :14; Start 10/17/18 at 14:00; Stop 10/17/18 at 14:01; Status DC Famotidine (Pepcid) 20 mg HS PO Last administered on 10/18/18at 20:04; Start at 21:00 Furosemide (Lasix) 20 mg DAILY PO Last administered on 10/19/18at 08:18; Start 10/18/18 at 09:00; Stop 10/19/18 at 10:07; Status DC Albuterol/ Ipratropium (Duoneb) 3 ml RTQID NEB Last administered on 10/19/18at 10:34; Start 10/17/18 at 16:00 Magnesium Oxide (Magnesium Oxide) 400 mg BID PO Last administered on 10/19/18at 08:20; Start 10/17/18 at 21:00 Polyethylene Glycol (miraLAX PACKET) 17 gm PRN DAILY PRN PO CONSTIPATION; Start 10/17/18 at 15:00 Potassium Chloride (Klor-Con) 20 meq DAILYWBKFT PO Last administered on at 08:17; Start 10/18/18 at 08:00 Amlodipine Besylate (Norvasc) 10 mg DAILY PO Last administered on 10/19/18at 08: 19; Start 10/18/18 at 12:30 Chlorthalidone (Thalitone) 25 mg DAILY PO ; Start 10/20/18 at 09:00 Hydralazine HCl (Apresoline Inj) 10 mg PRN Q4HRS PRN IVP ELEVATED BP, SEE COMMENTS; Start 10/19/18 at 10:15 Albuterol Sulfate (Ventolin Neb Soln) 2.5 mg PRN Q6HRS PRN NEB SHORTNESS OF BREATH; Start 10/19/18 at 10:15 Active Scripts Active Colcrys (Colchicine) 0.6 Mg Tablet 0.6 Mg PO DAILY 30 Days Aspirin Ec (Aspirin) 81 Mg Tablet.dr 81 Mg PO DAILYWBKFT 30 Days Duoneb 0.5-3(2.5) Mg/3 Ml (Albuterol/Ipratropium) 3 Ml Ampul.neb 3 Ml NEB RTQID 30 Days Metoprolol Tartrate 50 Mg Tablet 2 Tab PO BID 30 Days Reported Nystatin 15 Gm Powder 1 Alberto TP BID Milk Of Magnesia (Magnesium Hydroxide) 400 Mg/5 Ml Oral.susp 400 Mg PO PRN DAILY PRN Mag-Oxide (Magnesium Oxide) 400 Mg Tablet 1 Tab PO BID Losartan Potassium 100 Mg Tablet 100 Mg PO DAILY Lasix (Furosemide) 20 Mg Tablet 1 Tab PO DAILY Potassium Chloride 20 Meq Tablet.er 20 Meq PO DAILY Miralax (Polyethylene Glycol 3350) 17 Gm Powd.pack 1 Packet PO PRN DAILY PRN Lortab 5-325 mg Tablet (Hydrocodone/Acetaminophen) 1 Each Tablet 1 Tab PO PRN Q4HRS PRN Tylenol (Acetaminophen) 325 Mg Tablet 1 Tab PO PRN Q6HRS PRN Famotidine 20 Mg Tablet 20 Mg PO HS Vitals/I & O Vital Sign - Last 24 Hours 10/18/18 10/18/18 10/18/18 10/18/18 12:12 13:51 13:51 13:57 Pulse 69 70 B/P (MAP) 127/69 127/69 136/85 (102) Pulse Ox 95 O2 Delivery Room Air 10/18/18 10/18/18 10/18/18 10/18/18 15:00 15:50 18:55 19:25 Pulse 69 69 B/P (MAP) 142/89 (106) 183/90 (121) Pulse Ox 95 95 O2 Delivery Room Air Room Air Room Air 10/18/18 10/18/18 10/18/18 10/18/18 20:00 20:02 20:04 23:13 Pulse 69 69 69 B/P (MAP) 169/84 (112) 169/84 180/100 (126) Pulse Ox 96 94 O2 Delivery Room Air Room Air Room Air 10/18/18 10/18/18 10/18/18 10/19/18 23:31 23:45 23:55 03:00 Pulse 70 73 69 Resp 17 B/P (MAP) 190/101 (130) 190/101 140/82 (101) 167/94 (118) Pulse Ox 94 O2 Delivery Room Air Room Air 10/19/18 10/19/18 10/19/18 10/19/18 06:48 07:05 07:40 08:19 Temp 97.9 97.9 Pulse 71 73 Resp 18 B/P (MAP) 160/74 (102) 160/74 Pulse Ox 95 O2 Delivery Room Air Room Air Room Air 10/19/18 10/19/18 10/19/18 10/19/18 08:21 08:23 10:35 11:19 Temp 98.2 98.2 Pulse 70 69 69 Resp 20 B/P (MAP) 160/74 160/74 148/79 (102) Pulse Ox 96 96 O2 Delivery Room Air Room Air Intake and Output 10/18/18 10/18/18 10/19/18 15:00 23:00 07:00 Output Total 250 ml Balance -250 ml LIANNA BAIG MD Oct 19, 2018 11:31
[2018-10-19 14:30] VITALS: BP 161/95
[2018-10-19 19:00] VITALS: BP 122/70
[2018-10-19] MEDS: FAMOTIDINE 20 MG TABLET. PO SCH (20:30)
[2018-10-19 22:42] VITALS: BP 136/69
[2018-10-20 03:10] VITALS: BP 154/86
[2018-10-20 04:29] LABS: BASO % 1 % (0-3); EOS # 0.6 x10^3/uL (0.0-0.7); EOS % 10 % (0-3); HEMATOCRIT 39.7 % (39.0-53.0); HEMOGLOBIN 12.4 g/dL (13.0-17.5); LYMPH # 0.8 x10^3/uL (1.0-4.8); LYMPH % 14 % (24-48); MEAN CORPUSCULAR HEMOGLOBIN 26 pg (25-35); MEAN CORPUSCULAR HGB CONC 31 g/dL (31-37); MEAN CORPUSCULAR VOLUME 82 fL (79-100); MONO # 1.1 x10^3/uL (0.0-1.1); MONO % 18 % (0-9); NEUT # 3.4 x10^3uL (1.8-7.7); NEUT % 57 % (31-73); PLATELET COUNT 155 x10^3/uL (140-400); RED BLOOD COUNT 4.86 x10^6/uL (4.30-5.70); RED CELL DISTRIBUTION WIDTH 20.5 % (11.5-14.5)
[2018-10-20 04:48] LABS: ALBUMIN 2.7 g/dL (3.4-5.0); ALBUMIN/GLOBULIN RATIO 0.6 (1.0-1.7); CALCIUM 8.5 mg/dL (8.5-10.1); CREATININE 1.2 mg/dL (0.7-1.3); GFR 70.1; POTASSIUM 3.4 mmol/L (3.5-5.1); TOTAL BILIRUBIN 0.8 mg/dL (0.2-1.0); TOTAL PROTEIN 7.1 g/dL (6.4-8.2)
[2018-10-20 07:15] VITALS: BP 164/95
[2018-10-20] MEDS: IPRATRPIUM/ALBUTEROL 0.5/2.5MG 3 ML NEBU. NEB SCH ×4 (07:21→19:17)
[2018-10-20] MEDS: LOSARTAN POTASSIUM 50 MG TABLET. PO SCH (08:10)
[2018-10-20] MEDS: ASPIRIN ENTERIC COATED 81 MG TABLET.DR. PO SCH (08:10)
[2018-10-20] MEDS: POTASSIUM CHLORIDE 10 MEQ TABLET.ER. PO SCH (08:11)
[2018-10-20] MEDS: CHLORTHALIDONE 25 MG TABLET. PO SCH (08:11)
[2018-10-20] MEDS: MAGNESIUM OXIDE 400 MG TABLET PO SCH ×2 (08:12→22:27)
[2018-10-20] MEDS: METOPROLOL TART IMMED RELEASE 50 MG TABLET. PO SCH ×2 (08:12→22:27)
[2018-10-20] MEDS: amLODIPine BESYLATE 10 MG TABLET PO SCH (08:12)
[2018-10-20] MEDS: NYSTATIN TOPICAL POWDER 15GM BOTTLE. TP SCH ×2 (09:00→22:27)
[2018-10-20 11:00] VITALS: BP 166/85
--- NOTE | 2018-10-20 11:34 | NUR ---
Pt transferred to room 406 by bed. Report given to Ilsa.
--- NOTE | 2018-10-20 12:09 | NUR ---
Pt arrived to unit at 1130 by bed. Pt drowsy. VSS. Bed alarm on. Will continue to monitor.
--- NOTE | 2018-10-20 14:40 | PDOC ---
SURGICAL PROGRESS NOTE Subjective Pt appears comfortable, denies abd pain Vital Signs Vital Signs Date Time Temp Pulse Resp B/P (MAP) Pulse Ox O2 Delivery O2 Flow Rate FiO2 10/20/18 12:18 62 164/95 10/20/18 11:14 96 Room Air 10/20/18 11:00 97.1 18 97.1 I&O Intake and Output 10/20/18 07:00 Intake Total 640 ml Output Total 251 ml Balance 389 ml Intake Oral 640 ml Output Urine Total 251 ml # Voids 4 General: Alert, No acute distress Abdomen: Soft, No tenderness, Other (hernia reducible) Labs Laboratory Tests Test 10/19/18 09:00 10/20/18 04:00 White Blood Count 5.2 x10^3/uL (4.0-11.0) 6.0 x10^3/uL (4.0-11.0) Red Blood Count 4.93 x10^6/uL (4.30-5.70) 4.86 x10^6/uL (4.30-5.70) Hemoglobin 12.5 g/dL (13.0-17.5) 12.4 g/dL (13.0-17.5) Hematocrit 40.2 % (39.0-53.0) 39.7 % (39.0-53.0) Mean Corpuscular Volume 81 fL (79-100) 82 fL (79-100) Mean Corpuscular Hemoglobin 25 pg (25-35) 26 pg (25-35) Mean Corpuscular Hemoglobin Concent 31 g/dL (31-37) 31 g/dL (31-37) Red Cell Distribution Width 19.7 % (11.5-14.5) 20.5 % (11.5-14.5) Platelet Count 152 x10^3/uL (140-400) 155 x10^3/uL (140-400) Neutrophils (%) (Auto) 64 % (31-73) 57 % (31-73) Lymphocytes (%) (Auto) 11 % (24-48) 14 % (24-48) Monocytes (%) (Auto) 16 % (0-9) 18 % (0-9) Eosinophils (%) (Auto) 8 % (0-3) 10 % (0-3) Basophils (%) (Auto) 1 % (0-3) 1 % (0-3) Neutrophils # (Auto) 3.3 x10^3uL (1.8-7.7) 3.4 x10^3uL (1.8-7.7) Lymphocytes # (Auto) 0.6 x10^3/uL (1.0-4.8) 0.8 x10^3/uL (1.0-4.8) Monocytes # (Auto) 0.8 x10^3/uL (0.0-1.1) 1.1 x10^3/uL (0.0-1.1) Eosinophils # (Auto) 0.4 x10^3/uL (0.0-0.7) 0.6 x10^3/uL (0.0-0.7) Basophils # (Auto) 0.0 x10^3/uL (0.0-0.2) 0.0 x10^3/uL (0.0-0.2) Sodium Level 142 mmol/L (136-145) 143 mmol/L (136-145) Potassium Level 3.2 mmol/L (3.5-5.1) 3.4 mmol/L (3.5-5.1) Chloride Level 104 mmol/L (98-107) 105 mmol/L (98-107) Carbon Dioxide Level 28 mmol/L (21-32) 27 mmol/L (21-32) Anion Gap 10 (6-14) 11 (6-14) Blood Urea Nitrogen 12 mg/dL (8-26) 12 mg/dL (8-26) Creatinine 1.2 mg/dL (0.7-1.3) 1.2 mg/dL (0.7-1.3) Estimated GFR (Cockcroft-Gault) 70.1 70.1 BUN/Creatinine Ratio 10 (6-20) 10 (6-20) Glucose Level 127 mg/dL (70-99) 96 mg/dL (70-99) Calcium Level 8.4 mg/dL (8.5-10.1) 8.5 mg/dL (8.5-10.1) Total Bilirubin 1.0 mg/dL (0.2-1.0) 0.8 mg/dL (0.2-1.0) Aspartate Amino Transf (AST/SGOT) 14 U/L (15-37) 16 U/L (15-37) Alanine Aminotransferase (ALT/SGPT) 11 U/L (16-63) 8 U/L (16-63) Alkaline Phosphatase 114 U/L (46-116) 110 U/L (46-116) Total Protein 7.2 g/dL (6.4-8.2) 7.1 g/dL (6.4-8.2) Albumin 2.7 g/dL (3.4-5.0) 2.7 g/dL (3.4-5.0) Albumin/Globulin Ratio 0.6 (1.0-1.7) 0.6 (1.0-1.7) Laboratory Tests Test 10/20/18 04:00 White Blood Count 6.0 x10^3/uL (4.0-11.0) Red Blood Count 4.86 x10^6/uL (4.30-5.70) Hemoglobin 12.4 g/dL (13.0-17.5) Hematocrit 39.7 % (39.0-53.0) Mean Corpuscular Volume 82 fL (79-100) Mean Corpuscular Hemoglobin 26 pg (25-35) Mean Corpuscular Hemoglobin Concent 31 g/dL (31-37) Red Cell Distribution Width 20.5 % (11.5-14.5) Platelet Count 155 x10^3/uL (140-400) Neutrophils (%) (Auto) 57 % (31-73) Lymphocytes (%) (Auto) 14 % (24-48) Monocytes (%) (Auto) 18 % (0-9) Eosinophils (%) (Auto) 10 % (0-3) Basophils (%) (Auto) 1 % (0-3) Neutrophils # (Auto) 3.4 x10^3uL (1.8-7.7) Lymphocytes # (Auto) 0.8 x10^3/uL (1.0-4.8) Monocytes # (Auto) 1.1 x10^3/uL (0.0-1.1) Eosinophils # (Auto) 0.6 x10^3/uL (0.0-0.7) Basophils # (Auto) 0.0 x10^3/uL (0.0-0.2) Sodium Level 143 mmol/L (136-145) Potassium Level 3.4 mmol/L (3.5-5.1) Chloride Level 105 mmol/L (98-107) Carbon Dioxide Level 27 mmol/L (21-32) Anion Gap 11 (6-14) Blood Urea Nitrogen 12 mg/dL (8-26) Creatinine 1.2 mg/dL (0.7-1.3) Estimated GFR (Cockcroft-Gault) 70.1 BUN/Creatinine Ratio 10 (6-20) Glucose Level 96 mg/dL (70-99) Calcium Level 8.5 mg/dL (8.5-10.1) Total Bilirubin 0.8 mg/dL (0.2-1.0) Aspartate Amino Transf (AST/SGOT) 16 U/L (15-37) Alanine Aminotransferase (ALT/SGPT) 8 U/L (16-63) Alkaline Phosphatase 110 U/L (46-116) Total Protein 7.1 g/dL (6.4-8.2) Albumin 2.7 g/dL (3.4-5.0) Albumin/Globulin Ratio 0.6 (1.0-1.7) Problem List hernia with SBO, appears stable cont supportive care. RANJIT BOYCE MD Oct 20, 2018 14:40
[2018-10-20 15:00] VITALS: BP 135/86
--- NOTE | 2018-10-20 15:39 | PDOC ---
PROGRESS NOTES Chief Complaint Chief Complaint Agitation secondary to sundowning? patient will be started on Haldol as needed CKD stage 3- Stable renal function improved E-Lytes, acid base stable, Volume status stable Abd pain/vomiting resolved . : CT noted with SBO, general surgery following, [place] advancing diet as tolerated, SBO resolved Proteinuria +, Accelerated HTN: continue wtih current managment, add hydralazine PRN COPD with moderate to severe pulmonary HTN Chronic diastolic CHF: small bilateral pleural effusion otherwise clinically compensated PPM in situ: placed due to SSS ([facility] [facility]) Hx of AFIB; permanent chronic in nature Plan: advance diet reassess in the a m follow recommendations from functional consultant. will transfer to medical floor hopefully dismiss in the next 48 hours. History of Present Illness History of Present Illness Patient with improved blood pressure, patient is medically stable to be transferred to the medical floor. We will continue to advance his diet as tolerated, the patient is exhibiting on and off intermittent agitation events. He'll be started on Zyprexa and we will have Haldol on an as needed basis Vitals Vitals Vital Signs Date Time Temp Pulse Resp B/P (MAP) Pulse Ox O2 Delivery O2 Flow Rate FiO2 10/20/18 12:18 62 164/95 10/20/18 11:14 96 Room Air 10/20/18 11:00 97.1 18 97.1 Physical Exam Physical Exam Gen.: chronically ill appearing in no apparent distress Head: Normal shape atraumatic Eyes: Pupils equal reactive to light and accommodation, normal conjunctivae and lids Ears: Normal shape Nose: Normal shape no trauma Mouth: No exudates of the back of throat no thrush no lesions Neck: Supple no JVD no carotid bruit or lymphadenopathy no thyromegaly Chest: Lungs clear to auscultation with good inspiratory effort no crackles rales or rhonchi Cardiovascular: S1-S2 regular rhythm systolic murmurs gallops or rubs Abdomen: Bowel sounds hypoactive soft nontender no hepatosplenomegaly appreciated sign Extremities: No clubbing no cyanosis no edema peripheral pulses palpated bilaterally Neurological: Alert awake oriented in person time place and situation, cranial nerves II through XII intact, no motor or sensory deficits appreciated Psych: Appropriate mood, cooperative General: Alert, No acute distress Heart: Other (Vpaced with underlying afib) Abdomen: Soft, No tenderness, Other (hernia reducible) Extremities: Other (1+ bilateral LE pitting edema) Labs LABS Laboratory Tests Test 10/20/18 04:00 White Blood Count 6.0 x10^3/uL (4.0-11.0) Red Blood Count 4.86 x10^6/uL (4.30-5.70) Hemoglobin 12.4 g/dL (13.0-17.5) Hematocrit 39.7 % (39.0-53.0) Mean Corpuscular Volume 82 fL (79-100) Mean Corpuscular Hemoglobin 26 pg (25-35) Mean Corpuscular Hemoglobin Concent 31 g/dL (31-37) Red Cell Distribution Width 20.5 % (11.5-14.5) Platelet Count 155 x10^3/uL (140-400) Neutrophils (%) (Auto) 57 % (31-73) Lymphocytes (%) (Auto) 14 % (24-48) Monocytes (%) (Auto) 18 % (0-9) Eosinophils (%) (Auto) 10 % (0-3) Basophils (%) (Auto) 1 % (0-3) Neutrophils # (Auto) 3.4 x10^3uL (1.8-7.7) Lymphocytes # (Auto) 0.8 x10^3/uL (1.0-4.8) Monocytes # (Auto) 1.1 x10^3/uL (0.0-1.1) Eosinophils # (Auto) 0.6 x10^3/uL (0.0-0.7) Basophils # (Auto) 0.0 x10^3/uL (0.0-0.2) Sodium Level 143 mmol/L (136-145) Potassium Level 3.4 mmol/L (3.5-5.1) Chloride Level 105 mmol/L (98-107) Carbon Dioxide Level 27 mmol/L (21-32) Anion Gap 11 (6-14) Blood Urea Nitrogen 12 mg/dL (8-26) Creatinine 1.2 mg/dL (0.7-1.3) Estimated GFR (Cockcroft-Gault) 70.1 BUN/Creatinine Ratio 10 (6-20) Glucose Level 96 mg/dL (70-99) Calcium Level 8.5 mg/dL (8.5-10.1) Total Bilirubin 0.8 mg/dL (0.2-1.0) Aspartate Amino Transf (AST/SGOT) 16 U/L (15-37) Alanine Aminotransferase (ALT/SGPT) 8 U/L (16-63) Alkaline Phosphatase 110 U/L (46-116) Total Protein 7.1 g/dL (6.4-8.2) Albumin 2.7 g/dL (3.4-5.0) Albumin/Globulin Ratio 0.6 (1.0-1.7) Comment Review of Relevant I have reviewed the following items patrick (where applicable) has been applied. Labs Laboratory Tests Test 10/19/18 09:00 10/20/18 04:00 White Blood Count 5.2 x10^3/uL (4.0-11.0) 6.0 x10^3/uL (4.0-11.0) Red Blood Count 4.93 x10^6/uL (4.30-5.70) 4.86 x10^6/uL (4.30-5.70) Hemoglobin 12.5 g/dL (13.0-17.5) 12.4 g/dL (13.0-17.5) Hematocrit 40.2 % (39.0-53.0) 39.7 % (39.0-53.0) Mean Corpuscular Volume 81 fL (79-100) 82 fL (79-100) Mean Corpuscular Hemoglobin 25 pg (25-35) 26 pg (25-35) Mean Corpuscular Hemoglobin Concent 31 g/dL (31-37) 31 g/dL (31-37) Red Cell Distribution Width 19.7 % (11.5-14.5) 20.5 % (11.5-14.5) Platelet Count 152 x10^3/uL (140-400) 155 x10^3/uL (140-400) Neutrophils (%) (Auto) 64 % (31-73) 57 % (31-73) Lymphocytes (%) (Auto) 11 % (24-48) 14 % (24-48) Monocytes (%) (Auto) 16 % (0-9) 18 % (0-9) Eosinophils (%) (Auto) 8 % (0-3) 10 % (0-3) Basophils (%) (Auto) 1 % (0-3) 1 % (0-3) Neutrophils # (Auto) 3.3 x10^3uL (1.8-7.7) 3.4 x10^3uL (1.8-7.7) Lymphocytes # (Auto) 0.6 x10^3/uL (1.0-4.8) 0.8 x10^3/uL (1.0-4.8) Monocytes # (Auto) 0.8 x10^3/uL (0.0-1.1) 1.1 x10^3/uL (0.0-1.1) Eosinophils # (Auto) 0.4 x10^3/uL (0.0-0.7) 0.6 x10^3/uL (0.0-0.7) Basophils # (Auto) 0.0 x10^3/uL (0.0-0.2) 0.0 x10^3/uL (0.0-0.2) Sodium Level 142 mmol/L (136-145) 143 mmol/L (136-145) Potassium Level 3.2 mmol/L (3.5-5.1) 3.4 mmol/L (3.5-5.1) Chloride Level 104 mmol/L (98-107) 105 mmol/L (98-107) Carbon Dioxide Level 28 mmol/L (21-32) 27 mmol/L (21-32) Anion Gap 10 (6-14) 11 (6-14) Blood Urea Nitrogen 12 mg/dL (8-26) 12 mg/dL (8-26) Creatinine 1.2 mg/dL (0.7-1.3) 1.2 mg/dL (0.7-1.3) Estimated GFR (Cockcroft-Gault) 70.1 70.1 BUN/Creatinine Ratio 10 (6-20) 10 (6-20) Glucose Level 127 mg/dL (70-99) 96 mg/dL (70-99) Calcium Level 8.4 mg/dL (8.5-10.1) 8.5 mg/dL (8.5-10.1) Total Bilirubin 1.0 mg/dL (0.2-1.0) 0.8 mg/dL (0.2-1.0) Aspartate Amino Transf (AST/SGOT) 14 U/L (15-37) 16 U/L (15-37) Alanine Aminotransferase (ALT/SGPT) 11 U/L (16-63) 8 U/L (16-63) Alkaline Phosphatase 114 U/L (46-116) 110 U/L (46-116) Total Protein 7.2 g/dL (6.4-8.2) 7.1 g/dL (6.4-8.2) Albumin 2.7 g/dL (3.4-5.0) 2.7 g/dL (3.4-5.0) Albumin/Globulin Ratio 0.6 (1.0-1.7) 0.6 (1.0-1.7) Laboratory Tests Test 10/20/18 04:00 White Blood Count 6.0 x10^3/uL (4.0-11.0) Red Blood Count 4.86 x10^6/uL (4.30-5.70) Hemoglobin 12.4 g/dL (13.0-17.5) Hematocrit 39.7 % (39.0-53.0) Mean Corpuscular Volume 82 fL (79-100) Mean Corpuscular Hemoglobin 26 pg (25-35) Mean Corpuscular Hemoglobin Concent 31 g/dL (31-37) Red Cell Distribution Width 20.5 % (11.5-14.5) Platelet Count 155 x10^3/uL (140-400) Neutrophils (%) (Auto) 57 % (31-73) Lymphocytes (%) (Auto) 14 % (24-48) Monocytes (%) (Auto) 18 % (0-9) Eosinophils (%) (Auto) 10 % (0-3) Basophils (%) (Auto) 1 % (0-3) Neutrophils # (Auto) 3.4 x10^3uL (1.8-7.7) Lymphocytes # (Auto) 0.8 x10^3/uL (1.0-4.8) Monocytes # (Auto) 1.1 x10^3/uL (0.0-1.1) Eosinophils # (Auto) 0.6 x10^3/uL (0.0-0.7) Basophils # (Auto) 0.0 x10^3/uL (0.0-0.2) Sodium Level 143 mmol/L (136-145) Potassium Level 3.4 mmol/L (3.5-5.1) Chloride Level 105 mmol/L (98-107) Carbon Dioxide Level 27 mmol/L (21-32) Anion Gap 11 (6-14) Blood Urea Nitrogen 12 mg/dL (8-26) Creatinine 1.2 mg/dL (0.7-1.3) Estimated GFR (Cockcroft-Gault) 70.1 BUN/Creatinine Ratio 10 (6-20) Glucose Level 96 mg/dL (70-99) Calcium Level 8.5 mg/dL (8.5-10.1) Total Bilirubin 0.8 mg/dL (0.2-1.0) Aspartate Amino Transf (AST/SGOT) 16 U/L (15-37) Alanine Aminotransferase (ALT/SGPT) 8 U/L (16-63) Alkaline Phosphatase 110 U/L (46-116) Total Protein 7.1 g/dL (6.4-8.2) Albumin 2.7 g/dL (3.4-5.0) Albumin/Globulin Ratio 0.6 (1.0-1.7) Microbiology 10/14/18 Urine Culture - Final, Complete 10/14/18 Urine Culture Result 1 (ANNE) - Final, Complete Medications Current Medications Labetalol HCl (Normodyne Iv Push) 20 mg 1X ONCE IVP Last administered on at 19:26; Start 10/14/18 at 19:00; Stop 10/14/18 at 19:05; Status DC Ondansetron HCl (Zofran) 4 mg 1X ONCE IV Last administered on 10/14/18at 19:13 ; Start 10/14/18 at 19:00; Stop 10/14/18 at 19:05; Status DC Fentanyl Citrate (Fentanyl 2ml Vial) 50 mcg 1X ONCE IV Last administered on at 19:21; Start 10/14/18 at 19:00; Stop 10/14/18 at 19:05; Status DC Iohexol (Omnipaque 300 Mg/ml) 60 ml 1X ONCE IV Last administered on 10/14/18at 20:08; Start 10/14/18 at 20:00; Stop 10/14/18 at 20:01; Status DC Info (CONTRAST GIVEN -- Rx MONITORING) 1 each PRN DAILY PRN MC SEE COMMENTS; Start 10/14/18 at 20:00; Stop 10/16/18 at 19:59; Status DC Ondansetron HCl (Zofran) 4 mg PRN Q8HRS PRN IV NAUSEA/VOMITING 1ST CHOICE Last administered on 10/14/18at 22:31; Start 10/14/18 at 22:15; Stop 10/15/18 at 22:14 ; Status DC Morphine Sulfate (Morphine Sulfate) 4 mg PRN Q2HR PRN IV SEVERE PAIN; Start at 22:15; Stop 10/15/18 at 22:14; Status DC Sodium Chloride 1,000 ml @ 100 mls/hr Q10H IV Last administered on 10/15/18at 20:40; Start 10/14/18 at 22:30; Stop 10/15/18 at 22:29; Status DC Nitroglycerin (Nitro-Bid Oint) 1 inch 1X ONCE TP Last administered on at 22:42; Start 10/14/18 at 22:30; Stop 10/14/18 at 22:31; Status DC Labetalol HCl (Normodyne Iv Push) 20 mg PRN Q2HR PRN IVP HYPERTENSION, SEE COMMENTS Last administered on 10/18/18at 23:45; Start 10/14/18 at 23:00 Nystatin (Nystop) 1 alberto BID TP Last administered on 10/19/18at 20:31; Start at 09:00 Furosemide (Lasix) 20 mg DAILY PO ; Start 10/15/18 at 09:00; Stop 10/15/18 at 09 :00; Status DC Metoprolol Tartrate (Lopressor Vial) 5 mg Q6HRS IVP Last administered on at 17:43; Start 10/15/18 at 12:00; Stop 10/17/18 at 02:51; Status DC Haloperidol Lactate (Haldol Inj) 5 mg 1X ONCE IVP ; Start 10/15/18 at 22:00; Stop 10/15/18 at 23:18; Status DC Haloperidol Lactate (Haldol Inj) 5 mg 1X ONCE IM Last administered on at 02:31; Start 10/15/18 at 23:30; Stop 10/15/18 at 23:31; Status DC Enalaprilat (Vasotec Inj) 1.25 mg Q6HRS IVP Last administered on 10/17/18 05: 43; Start 10/16/18 at 08:00; Stop 10/17/18 at 14:08; Status DC Lisinopril (Prinivil) 10 mg 1X ONCE PO Last administered on 10/16/18at 15:10; Start 10/16/18 at 15:30; Stop 10/16/18 at 15:31; Status DC Hydrochlorothiazide (Microzide) 12.5 mg 1X ONCE PO Last administered on at 15:10; Start 10/16/18 at 15:30; Stop 10/16/18 at 15:31; Status DC Nicardipine HCl 50 mg/Sodium Chloride 250 ml @ 25 mls/hr CONT PRN IV SEE I/O RECORD Last administered on 10/17/18at 20:21; Start 10/16/18 at 19:45; Stop 10/20 at 11:30; Status DC Lorazepam (Ativan) 1 mg PRN Q8HRS PRN IV ANXIETY / AGITATION Last administered on 10/20/18 08:14; Start 10/16/18 at 20:30 Metoprolol Tartrate (Lopressor) 25 mg BID PO Last administered on 10/16/18 22: 59; Start 10/16/18 at 23:00; Stop 10/17/18 at 02:57; Status DC Metoprolol Tartrate (Lopressor Vial) 5 mg PRN Q6HRS PRN IVP HYPERTENSION IF IV AVAILABLE; Start 10/17/18 at 03:00; Status Cancel Metoprolol Tartrate (Lopressor Vial) 5 mg Q6HRS IVP Last administered on 05:43; Start 10/17/18 at 06:00; Stop 10/17/18 at 12:26; Status DC Aspirin (Ecotrin) 81 mg DAILYWBKFT PO Last administered on 10/20/18 08:10; Start 10/17/18 at 12:30 Losartan Potassium (Cozaar) 50 mg DAILY PO Last administered on 10/17/18at 12:34 ; Start 10/17/18 at 13:00; Stop 10/17/18 at 13:56; Status DC Metoprolol Tartrate (Lopressor) 100 mg BID PO Last administered on 10/20/18 08 :12; Start 10/17/18 at 12:30 Losartan Potassium (Cozaar) 100 mg DAILY PO Last administered on 10/20/18 08: 10; Start 10/18/18 at 09:00 Losartan Potassium (Cozaar) 50 mg 1X ONCE PO Last administered on 10/17/18 14 :14; Start 10/17/18 at 14:00; Stop 10/17/18 at 14:01; Status DC Famotidine (Pepcid) 20 mg HS PO Last administered on 10/19/18 20:30; Start at 21:00 Furosemide (Lasix) 20 mg DAILY PO Last administered on 10/19/18 08:18; Start 10/18/18 at 09:00; Stop 10/19/18 at 10:07; Status DC Albuterol/ Ipratropium (Duoneb) 3 ml RTQID NEB Last administered on 10/20/18 11:13; Start 10/17/18 at 16:00 Magnesium Oxide (Magnesium Oxide) 400 mg BID PO Last administered on 10/20/18 08:12; Start 10/17/18 at 21:00 Polyethylene Glycol (miraLAX PACKET) 17 gm PRN DAILY PRN PO CONSTIPATION; Start 10/17/18 at 15:00 Potassium Chloride (Klor-Con) 20 meq DAILYWBKFT PO Last administered on 08:11; Start 10/18/18 at 08:00 Amlodipine Besylate (Norvasc) 10 mg DAILY PO Last administered on 10/20/18 08: 12; Start 10/18/18 at 12:30 Chlorthalidone (Thalitone) 25 mg DAILY PO Last administered on 10/20/18 08:11 ; Start 10/20/18 at 09:00 Hydralazine HCl (Apresoline Inj) 10 mg PRN Q4HRS PRN IVP ELEVATED BP, SEE COMMENTS Last administered on 10/20/18 12:18; Start 10/19/18 at 10:15 Albuterol Sulfate (Ventolin Neb Soln) 2.5 mg PRN Q6HRS PRN NEB SHORTNESS OF BREATH; Start 10/19/18 at 10:15 Lorazepam (Ativan) 1 mg 1X ONCE IV ; Start 10/20/18 at 14:45; Stop 10/20/18 at 14:46; Status DC Active Scripts Active Colcrys (Colchicine) 0.6 Mg Tablet 0.6 Mg PO DAILY 30 Days Aspirin Ec (Aspirin) 81 Mg Tablet.dr 81 Mg PO DAILYWBKFT 30 Days Duoneb 0.5-3(2.5) Mg/3 Ml (Albuterol/Ipratropium) 3 Ml Ampul.neb 3 Ml NEB RTQID 30 Days Metoprolol Tartrate 50 Mg Tablet 2 Tab PO BID 30 Days Reported Nystatin 15 Gm Powder 1 Alberto TP BID Milk Of Magnesia (Magnesium Hydroxide) 400 Mg/5 Ml Oral.susp 400 Mg PO PRN DAILY PRN Mag-Oxide (Magnesium Oxide) 400 Mg Tablet 1 Tab PO BID Losartan Potassium 100 Mg Tablet 100 Mg PO DAILY Lasix (Furosemide) 20 Mg Tablet 1 Tab PO DAILY Potassium Chloride 20 Meq Tablet.er 20 Meq PO DAILY Miralax (Polyethylene Glycol 3350) 17 Gm Powd.pack 1 Packet PO PRN DAILY PRN Lortab 5-325 mg Tablet (Hydrocodone/Acetaminophen) 1 Each Tablet 1 Tab PO PRN Q4HRS PRN Tylenol (Acetaminophen) 325 Mg Tablet 1 Tab PO PRN Q6HRS PRN Famotidine 20 Mg Tablet 20 Mg PO HS Vitals/I & O Vital Sign - Last 24 Hours 10/19/18 10/19/18 10/19/18 10/19/18 19:00 19:08 20:31 20:42 Temp 98.3 98.3 Pulse 69 69 Resp 19 B/P (MAP) 122/70 (87) 122/70 Pulse Ox 96 96 O2 Delivery Room Air Room Air Room Air 10/19/18 10/20/18 10/20/18 10/20/18 22:42 03:10 07:15 07:21 Temp 98.1 97.8 97.0 98.1 97.8 97.0 Pulse 69 69 62 Resp 19 19 20 B/P (MAP) 136/69 (91) 154/86 (108) 164/95 (118) Pulse Ox 96 95 97 O2 Delivery Room Air Room Air Room Air Room Air 10/20/18 10/20/18 10/20/18 10/20/18 08:00 08:10 08:12 08:12 Pulse 62 62 62 B/P (MAP) 164/95 164/95 O2 Delivery Room Air 10/20/18 10/20/18 10/20/18 11:00 11:14 12:18 Temp 97.1 97.1 Pulse 70 62 Resp 18 B/P (MAP) 166/85 (112) 164/95 Pulse Ox 96 96 O2 Delivery Room Air Room Air Intake and Output 10/19/18 10/19/18 10/20/18 15:00 23:00 07:00 Intake Total 280 ml 360 ml Output Total 250 ml 1 ml Balance 30 ml 360 ml -1 ml LIANNA BAIG MD Oct 20, 2018 15:39
[2018-10-20] MEDS ORDERED: HALOPERIDOL LACTATE 5 MG/ML VIAL. IVP PRN (15:45)
[2018-10-20] MEDS: OLANZapine 2.5 MG TABLET PO SCH (18:31)
[2018-10-20 19:00] VITALS: BP 171/106
--- NOTE | 2018-10-20 21:30 | NUR ---
Patient pulled IV out at shift change and multiple nurses tried to insert a new IV and were unsuccessful. RN paged Dr. Starr to request the hydralazine and ativan be switched over to PO due to no IV access, orders were received and implemented at that time. Dr. Starr said that it would be fine to leave the IV out. RN will continue to monitor.
[2018-10-20] MEDS ORDERED: LORazepam 0.5 MG TABLET PO ONE (22:15)
[2018-10-20] MEDS: hydrALAZINE 25 MG TABLET PO SCH (22:15)
[2018-10-20] MEDS ORDERED: OLANZapine IM 10 MG VIAL. IM ONE (22:15)
[2018-10-20 22:24] VITALS: BP 143/86
[2018-10-20] MEDS: FAMOTIDINE 20 MG TABLET. PO SCH (22:26)
[2018-10-21 03:00] VITALS: BP 156/85
[2018-10-21 07:00] VITALS: BP 178/99
[2018-10-21] MEDS: IPRATRPIUM/ALBUTEROL 0.5/2.5MG 3 ML NEBU. NEB SCH ×4 (07:19→19:06)
[2018-10-21 08:05] LABS: BASO % 1 % (0-3); EOS # 0.6 x10^3/uL (0.0-0.7); EOS % 9 % (0-3); HEMATOCRIT 45.2 % (39.0-53.0); HEMOGLOBIN 13.8 g/dL (13.0-17.5); LYMPH # 0.5 x10^3/uL (1.0-4.8); LYMPH % 7 % (24-48); MEAN CORPUSCULAR HEMOGLOBIN 25 pg (25-35); MEAN CORPUSCULAR HGB CONC 31 g/dL (31-37); MEAN CORPUSCULAR VOLUME 83 fL (79-100); MONO % 15 % (0-9); NEUT # 4.7 x10^3uL (1.8-7.7); NEUT % 69 % (31-73); PLATELET COUNT 161 x10^3/uL (140-400); RED BLOOD COUNT 5.46 x10^6/uL (4.30-5.70); RED CELL DISTRIBUTION WIDTH 20.8 % (11.5-14.5); WHITE BLOOD COUNT 6.8 x10^3/uL (4.0-11.0)
[2018-10-21 08:49] LABS: ALBUMIN 2.9 g/dL (3.4-5.0); ALBUMIN/GLOBULIN RATIO 0.6 (1.0-1.7); CALCIUM 9.1 mg/dL (8.5-10.1); CREATININE 1.2 mg/dL (0.7-1.3); GFR 70.1; POTASSIUM 3.5 mmol/L (3.5-5.1); TOTAL BILIRUBIN 0.9 mg/dL (0.2-1.0); TOTAL PROTEIN 8.1 g/dL (6.4-8.2)
[2018-10-21] MEDS: ASPIRIN ENTERIC COATED 81 MG TABLET.DR. PO SCH (09:02)
[2018-10-21] MEDS: MAGNESIUM OXIDE 400 MG TABLET PO SCH ×2 (09:03→22:29)
[2018-10-21] MEDS: LOSARTAN POTASSIUM 50 MG TABLET. PO SCH (09:04)
[2018-10-21] MEDS: METOPROLOL TART IMMED RELEASE 50 MG TABLET. PO SCH ×2 (09:05→22:29)
[2018-10-21] MEDS: hydrALAZINE 25 MG TABLET PO SCH ×3 (09:06→22:29)
[2018-10-21] MEDS: OLANZapine 2.5 MG TABLET PO SCH (09:06)
[2018-10-21] MEDS: POTASSIUM CHLORIDE 10 MEQ TABLET.ER. PO SCH (09:08)
[2018-10-21] MEDS: CHLORTHALIDONE 25 MG TABLET. PO SCH (09:08)
[2018-10-21] MEDS: amLODIPine BESYLATE 10 MG TABLET PO SCH (09:09)
[2018-10-21] MEDS: NYSTATIN TOPICAL POWDER 15GM BOTTLE. TP SCH ×2 (09:17→22:30)
[2018-10-21 11:00] VITALS: BP 140/85
--- NOTE | 2018-10-21 13:59 | PDOC ---
PROGRESS NOTES Chief Complaint Chief Complaint dementia with evening behavioral disorder, sundowning, CKD stage 3- Abd pain/vomiting resolved . : SBO, general surgery following, currenlty advancing diet as tolerated, SBO resolved Proteinuria +, Accelerated HTN: continue wtih current managment, add hydralazine PRN COPD with moderate to severe pulmonary HTN Chronic diastolic CHF: small bilateral pleural effusion otherwise clinically compensated Hx of AFIB; chronic disatolic CHF History of Present Illness History of Present Illness plan back to [facility] tomorrow We will continue to advance his diet as tolerated, the patient is exhibiting on and off intermittent agitation events. He'll be started on Zyprexa and we will have Haldol on an as needed basis Vitals Vitals Vital Signs Date Time Temp Pulse Resp B/P (MAP) Pulse Ox O2 Delivery O2 Flow Rate FiO2 10/21/18 11:45 Room Air 10/21/18 11:00 97.9 71 18 140/85 (103) 100 97.9 10/20/18 22:24 2.0 Physical Exam Physical Exam Gen.: chronically ill appearing in no apparent distress Head: Normal shape atraumatic Eyes: Pupils equal reactive to light and accommodation, normal conjunctivae and lids Ears: Normal shape Nose: Normal shape no trauma Mouth: No exudates of the back of throat no thrush no lesions Neck: Supple no JVD no carotid bruit or lymphadenopathy no thyromegaly Chest: Lungs clear to auscultation with good inspiratory effort no crackles rales or rhonchi Cardiovascular: S1-S2 regular rhythm systolic murmurs gallops or rubs Abdomen: Bowel sounds hypoactive soft nontender no hepatosplenomegaly appreciated sign Extremities: No clubbing no cyanosis no edema peripheral pulses palpated bilaterally Neurological: Alert awake oriented in person time place and situation, cranial nerves II through XII intact, no motor or sensory deficits appreciated Psych: Appropriate mood, cooperative General: Alert, No acute distress Heart: Regular rate, Other (Vpaced with underlying afib) Lungs: Clear Abdomen: Soft, No tenderness, Other (hernia reducible) Extremities: Other (1+ bilateral LE pitting edema) Skin: No rashes, No breakdown Labs LABS Laboratory Tests Test 10/21/18 07:31 10/21/18 07:35 White Blood Count 6.8 x10^3/uL (4.0-11.0) Red Blood Count 5.46 x10^6/uL (4.30-5.70) Hemoglobin 13.8 g/dL (13.0-17.5) Hematocrit 45.2 % (39.0-53.0) Mean Corpuscular Volume 83 fL (79-100) Mean Corpuscular Hemoglobin 25 pg (25-35) Mean Corpuscular Hemoglobin Concent 31 g/dL (31-37) Red Cell Distribution Width 20.8 % (11.5-14.5) Platelet Count 161 x10^3/uL (140-400) Neutrophils (%) (Auto) 69 % (31-73) Lymphocytes (%) (Auto) 7 % (24-48) Monocytes (%) (Auto) 15 % (0-9) Eosinophils (%) (Auto) 9 % (0-3) Basophils (%) (Auto) 1 % (0-3) Neutrophils # (Auto) 4.7 x10^3uL (1.8-7.7) Lymphocytes # (Auto) 0.5 x10^3/uL (1.0-4.8) Monocytes # (Auto) 1.0 x10^3/uL (0.0-1.1) Eosinophils # (Auto) 0.6 x10^3/uL (0.0-0.7) Basophils # (Auto) 0.0 x10^3/uL (0.0-0.2) Sodium Level 143 mmol/L (136-145) Potassium Level 3.5 mmol/L (3.5-5.1) Chloride Level 106 mmol/L (98-107) Carbon Dioxide Level 28 mmol/L (21-32) Anion Gap 9 (6-14) Blood Urea Nitrogen 10 mg/dL (8-26) Creatinine 1.2 mg/dL (0.7-1.3) Estimated GFR (Cockcroft-Gault) 70.1 BUN/Creatinine Ratio 8 (6-20) Glucose Level 101 mg/dL (70-99) Calcium Level 9.1 mg/dL (8.5-10.1) Total Bilirubin 0.9 mg/dL (0.2-1.0) Aspartate Amino Transf (AST/SGOT) 15 U/L (15-37) Alanine Aminotransferase (ALT/SGPT) 9 U/L (16-63) Alkaline Phosphatase 127 U/L (46-116) Total Protein 8.1 g/dL (6.4-8.2) Albumin 2.9 g/dL (3.4-5.0) Albumin/Globulin Ratio 0.6 (1.0-1.7) Comment Review of Relevant I have reviewed the following items patrick (where applicable) has been applied. Labs Laboratory Tests Test 10/20/18 04:00 10/21/18 07:31 10/21/18 07:35 White Blood Count 6.0 x10^3/uL (4.0-11.0) 6.8 x10^3/uL (4.0-11.0) Red Blood Count 4.86 x10^6/uL (4.30-5.70) 5.46 x10^6/uL (4.30-5.70) Hemoglobin 12.4 g/dL (13.0-17.5) 13.8 g/dL (13.0-17.5) Hematocrit 39.7 % (39.0-53.0) 45.2 % (39.0-53.0) Mean Corpuscular Volume 82 fL (79-100) 83 fL (79-100) Mean Corpuscular Hemoglobin 26 pg (25-35) 25 pg (25-35) Mean Corpuscular Hemoglobin Concent 31 g/dL (31-37) 31 g/dL (31-37) Red Cell Distribution Width 20.5 % (11.5-14.5) 20.8 % (11.5-14.5) Platelet Count 155 x10^3/uL (140-400) 161 x10^3/uL (140-400) Neutrophils (%) (Auto) 57 % (31-73) 69 % (31-73) Lymphocytes (%) (Auto) 14 % (24-48) 7 % (24-48) Monocytes (%) (Auto) 18 % (0-9) 15 % (0-9) Eosinophils (%) (Auto) 10 % (0-3) 9 % (0-3) Basophils (%) (Auto) 1 % (0-3) 1 % (0-3) Neutrophils # (Auto) 3.4 x10^3uL (1.8-7.7) 4.7 x10^3uL (1.8-7.7) Lymphocytes # (Auto) 0.8 x10^3/uL (1.0-4.8) 0.5 x10^3/uL (1.0-4.8) Monocytes # (Auto) 1.1 x10^3/uL (0.0-1.1) 1.0 x10^3/uL (0.0-1.1) Eosinophils # (Auto) 0.6 x10^3/uL (0.0-0.7) 0.6 x10^3/uL (0.0-0.7) Basophils # (Auto) 0.0 x10^3/uL (0.0-0.2) 0.0 x10^3/uL (0.0-0.2) Sodium Level 143 mmol/L (136-145) 143 mmol/L (136-145) Potassium Level 3.4 mmol/L (3.5-5.1) 3.5 mmol/L (3.5-5.1) Chloride Level 105 mmol/L (98-107) 106 mmol/L (98-107) Carbon Dioxide Level 27 mmol/L (21-32) 28 mmol/L (21-32) Anion Gap 11 (6-14) 9 (6-14) Blood Urea Nitrogen 12 mg/dL (8-26) 10 mg/dL (8-26) Creatinine 1.2 mg/dL (0.7-1.3) 1.2 mg/dL (0.7-1.3) Estimated GFR (Cockcroft-Gault) 70.1 70.1 BUN/Creatinine Ratio 10 (6-20) 8 (6-20) Glucose Level 96 mg/dL (70-99) 101 mg/dL (70-99) Calcium Level 8.5 mg/dL (8.5-10.1) 9.1 mg/dL (8.5-10.1) Total Bilirubin 0.8 mg/dL (0.2-1.0) 0.9 mg/dL (0.2-1.0) Aspartate Amino Transf (AST/SGOT) 16 U/L (15-37) 15 U/L (15-37) Alanine Aminotransferase (ALT/SGPT) 8 U/L (16-63) 9 U/L (16-63) Alkaline Phosphatase 110 U/L (46-116) 127 U/L (46-116) Total Protein 7.1 g/dL (6.4-8.2) 8.1 g/dL (6.4-8.2) Albumin 2.7 g/dL (3.4-5.0) 2.9 g/dL (3.4-5.0) Albumin/Globulin Ratio 0.6 (1.0-1.7) 0.6 (1.0-1.7) Laboratory Tests Test 10/21/18 07:31 10/21/18 07:35 White Blood Count 6.8 x10^3/uL (4.0-11.0) Red Blood Count 5.46 x10^6/uL (4.30-5.70) Hemoglobin 13.8 g/dL (13.0-17.5) Hematocrit 45.2 % (39.0-53.0) Mean Corpuscular Volume 83 fL (79-100) Mean Corpuscular Hemoglobin 25 pg (25-35) Mean Corpuscular Hemoglobin Concent 31 g/dL (31-37) Red Cell Distribution Width 20.8 % (11.5-14.5) Platelet Count 161 x10^3/uL (140-400) Neutrophils (%) (Auto) 69 % (31-73) Lymphocytes (%) (Auto) 7 % (24-48) Monocytes (%) (Auto) 15 % (0-9) Eosinophils (%) (Auto) 9 % (0-3) Basophils (%) (Auto) 1 % (0-3) Neutrophils # (Auto) 4.7 x10^3uL (1.8-7.7) Lymphocytes # (Auto) 0.5 x10^3/uL (1.0-4.8) Monocytes # (Auto) 1.0 x10^3/uL (0.0-1.1) Eosinophils # (Auto) 0.6 x10^3/uL (0.0-0.7) Basophils # (Auto) 0.0 x10^3/uL (0.0-0.2) Sodium Level 143 mmol/L (136-145) Potassium Level 3.5 mmol/L (3.5-5.1) Chloride Level 106 mmol/L (98-107) Carbon Dioxide Level 28 mmol/L (21-32) Anion Gap 9 (6-14) Blood Urea Nitrogen 10 mg/dL (8-26) Creatinine 1.2 mg/dL (0.7-1.3) Estimated GFR (Cockcroft-Gault) 70.1 BUN/Creatinine Ratio 8 (6-20) Glucose Level 101 mg/dL (70-99) Calcium Level 9.1 mg/dL (8.5-10.1) Total Bilirubin 0.9 mg/dL (0.2-1.0) Aspartate Amino Transf (AST/SGOT) 15 U/L (15-37) Alanine Aminotransferase (ALT/SGPT) 9 U/L (16-63) Alkaline Phosphatase 127 U/L (46-116) Total Protein 8.1 g/dL (6.4-8.2) Albumin 2.9 g/dL (3.4-5.0) Albumin/Globulin Ratio 0.6 (1.0-1.7) Microbiology 10/14/18 Urine Culture - Final, Complete 10/14/18 Urine Culture Result 1 (ANNE) - Final, Complete Medications Current Medications Labetalol HCl (Normodyne Iv Push) 20 mg 1X ONCE IVP Last administered on at 19:26; Start 10/14/18 at 19:00; Stop 10/14/18 at 19:05; Status DC Ondansetron HCl (Zofran) 4 mg 1X ONCE IV Last administered on 10/14/18at 19:13 ; Start 10/14/18 at 19:00; Stop 10/14/18 at 19:05; Status DC Fentanyl Citrate (Fentanyl 2ml Vial) 50 mcg 1X ONCE IV Last administered on at 19:21; Start 10/14/18 at 19:00; Stop 10/14/18 at 19:05; Status DC Iohexol (Omnipaque 300 Mg/ml) 60 ml 1X ONCE IV Last administered on 10/14/18at 20:08; Start 10/14/18 at 20:00; Stop 10/14/18 at 20:01; Status DC Info (CONTRAST GIVEN -- Rx MONITORING) 1 each PRN DAILY PRN MC SEE COMMENTS; Start 10/14/18 at 20:00; Stop 10/16/18 at 19:59; Status DC Ondansetron HCl (Zofran) 4 mg PRN Q8HRS PRN IV NAUSEA/VOMITING 1ST CHOICE Last administered on 10/14/18at 22:31; Start 10/14/18 at 22:15; Stop 10/15/18 at 22:14 ; Status DC Morphine Sulfate (Morphine Sulfate) 4 mg PRN Q2HR PRN IV SEVERE PAIN; Start at 22:15; Stop 10/15/18 at 22:14; Status DC Sodium Chloride 1,000 ml @ 100 mls/hr Q10H IV Last administered on 10/15/18at 20:40; Start 10/14/18 at 22:30; Stop 10/15/18 at 22:29; Status DC Nitroglycerin (Nitro-Bid Oint) 1 inch 1X ONCE TP Last administered on at 22:42; Start 10/14/18 at 22:30; Stop 10/14/18 at 22:31; Status DC Labetalol HCl (Normodyne Iv Push) 20 mg PRN Q2HR PRN IVP HYPERTENSION, SEE COMMENTS Last administered on 10/18/18at 23:45; Start 10/14/18 at 23:00 Nystatin (Nystop) 1 alberto BID TP Last administered on 10/21/18 09:17; Start at 09:00 Furosemide (Lasix) 20 mg DAILY PO ; Start 10/15/18 at 09:00; Stop 10/15/18 at 09 :00; Status DC Metoprolol Tartrate (Lopressor Vial) 5 mg Q6HRS IVP Last administered on at 17:43; Start 10/15/18 at 12:00; Stop 10/17/18 at 02:51; Status DC Haloperidol Lactate (Haldol Inj) 5 mg 1X ONCE IVP ; Start 10/15/18 at 22:00; Stop 10/15/18 at 23:18; Status DC Haloperidol Lactate (Haldol Inj) 5 mg 1X ONCE IM Last administered on at 02:31; Start 10/15/18 at 23:30; Stop 10/15/18 at 23:31; Status DC Enalaprilat (Vasotec Inj) 1.25 mg Q6HRS IVP Last administered on 10/17/18at 05: 43; Start 10/16/18 at 08:00; Stop 10/17/18 at 14:08; Status DC Lisinopril (Prinivil) 10 mg 1X ONCE PO Last administered on 10/16/18at 15:10; Start 10/16/18 at 15:30; Stop 10/16/18 at 15:31; Status DC Hydrochlorothiazide (Microzide) 12.5 mg 1X ONCE PO Last administered on 15:10; Start 10/16/18 at 15:30; Stop 10/16/18 at 15:31; Status DC Nicardipine HCl 50 mg/Sodium Chloride 250 ml @ 25 mls/hr CONT PRN IV SEE I/O RECORD Last administered on 10/17/18at 20:21; Start 10/16/18 at 19:45; Stop 10/20 at 11:30; Status DC Lorazepam (Ativan) 1 mg PRN Q8HRS PRN IV ANXIETY / AGITATION Last administered on 10/20/18 08:14; Start 10/16/18 at 20:30; Stop 10/20/18 at 15:38; Status DC Metoprolol Tartrate (Lopressor) 25 mg BID PO Last administered on 10/16/18 22: 59; Start 10/16/18 at 23:00; Stop 10/17/18 at 02:57; Status DC Metoprolol Tartrate (Lopressor Vial) 5 mg PRN Q6HRS PRN IVP HYPERTENSION IF IV AVAILABLE; Start 10/17/18 at 03:00; Status Cancel Metoprolol Tartrate (Lopressor Vial) 5 mg Q6HRS IVP Last administered on 05:43; Start 10/17/18 at 06:00; Stop 10/17/18 at 12:26; Status DC Aspirin (Ecotrin) 81 mg DAILYWBKFT PO Last administered on 10/21/18 09:02; Start 10/17/18 at 12:30 Losartan Potassium (Cozaar) 50 mg DAILY PO Last administered on 10/17/18 12:34 ; Start 10/17/18 at 13:00; Stop 10/17/18 at 13:56; Status DC Metoprolol Tartrate (Lopressor) 100 mg BID PO Last administered on 10/21/18 09 :05; Start 10/17/18 at 12:30 Losartan Potassium (Cozaar) 100 mg DAILY PO Last administered on 10/21/18 09: 04; Start 10/18/18 at 09:00 Losartan Potassium (Cozaar) 50 mg 1X ONCE PO Last administered on 10/17/18 14 :14; Start 10/17/18 at 14:00; Stop 10/17/18 at 14:01; Status DC Famotidine (Pepcid) 20 mg HS PO Last administered on 10/20/18 22:26; Start at 21:00 Furosemide (Lasix) 20 mg DAILY PO Last administered on 10/19/18 08:18; Start 10/18/18 at 09:00; Stop 10/19/18 at 10:07; Status DC Albuterol/ Ipratropium (Duoneb) 3 ml RTQID NEB Last administered on 10/21/18 11:41; Start 10/17/18 at 16:00 Magnesium Oxide (Magnesium Oxide) 400 mg BID PO Last administered on 10/21/18 09:03; Start 10/17/18 at 21:00 Polyethylene Glycol (miraLAX PACKET) 17 gm PRN DAILY PRN PO CONSTIPATION; Start 10/17/18 at 15:00 Potassium Chloride (Klor-Con) 20 meq DAILYWBKFT PO Last administered on 09:08; Start 10/18/18 at 08:00 Amlodipine Besylate (Norvasc) 10 mg DAILY PO Last administered on 10/21/18 09: 09; Start 10/18/18 at 12:30 Chlorthalidone (Thalitone) 25 mg DAILY PO Last administered on 10/21/18 09:08 ; Start 10/20/18 at 09:00 Hydralazine HCl (Apresoline Inj) 10 mg PRN Q4HRS PRN IVP ELEVATED BP, SEE COMMENTS Last administered on 10/20/18 12:18; Start 10/19/18 at 10:15; Stop at 22:04; Status DC Albuterol Sulfate (Ventolin Neb Soln) 2.5 mg PRN Q6HRS PRN NEB SHORTNESS OF BREATH; Start 10/19/18 at 10:15 Lorazepam (Ativan) 1 mg 1X ONCE IV ; Start 10/20/18 at 14:45; Stop 10/20/18 at 22:04; Status DC Olanzapine (ZyPREXA) 2.5 mg DAILY PO Last administered on 10/21/18at 09:06; Start 10/20/18 at 15:45 Haloperidol Lactate (Haldol Inj) 5 mg PRN Q6HRS PRN IVP AGITATION; Start at 15:45 Hydralazine HCl (Apresoline) 25 mg TID PO Last administered on 10/21/18at 09:06 ; Start 10/20/18 at 22:15 Lorazepam (Ativan) 0.25 mg 1X ONCE PO Last administered on 10/21/18at 01:22; Start 10/20/18 at 22:15; Stop 10/20/18 at 22:16; Status DC Olanzapine (ZyPREXA IM) 5 mg 1X ONCE IM ; Start 10/20/18 at 22:15; Stop at 22:16; Status DC Active Scripts Active Colcrys (Colchicine) 0.6 Mg Tablet 0.6 Mg PO DAILY 30 Days Aspirin Ec (Aspirin) 81 Mg Tablet.dr 81 Mg PO DAILYWBKFT 30 Days Duoneb 0.5-3(2.5) Mg/3 Ml (Albuterol/Ipratropium) 3 Ml Ampul.neb 3 Ml NEB RTQID 30 Days Metoprolol Tartrate 50 Mg Tablet 2 Tab PO BID 30 Days Reported Nystatin 15 Gm Powder 1 Alberto TP BID Milk Of Magnesia (Magnesium Hydroxide) 400 Mg/5 Ml Oral.susp 400 Mg PO PRN DAILY PRN Mag-Oxide (Magnesium Oxide) 400 Mg Tablet 1 Tab PO BID Losartan Potassium 100 Mg Tablet 100 Mg PO DAILY Lasix (Furosemide) 20 Mg Tablet 1 Tab PO DAILY Potassium Chloride 20 Meq Tablet.er 20 Meq PO DAILY Miralax (Polyethylene Glycol 3350) 17 Gm Powd.pack 1 Packet PO PRN DAILY PRN Lortab 5-325 mg Tablet (Hydrocodone/Acetaminophen) 1 Each Tablet 1 Tab PO PRN Q4HRS PRN Tylenol (Acetaminophen) 325 Mg Tablet 1 Tab PO PRN Q6HRS PRN Famotidine 20 Mg Tablet 20 Mg PO HS Vitals/I & O Vital Sign - Last 24 Hours 2/23/19 10/20/18 10/20/18 10/20/18 15:00 16:05 19:00 19:18 Temp 98.2 97.3 98.2 97.3 Pulse 77 71 Resp 20 20 B/P (MAP) 135/86 (102) 171/106 (127) Pulse Ox 94 98 97 O2 Delivery Room Air Room Air Room Air Room Air 10/20/18 10/20/18 10/20/18 10/21/18 19:45 22:24 22:27 03:00 Temp 97.5 97.5 Pulse 70 70 69 Resp 20 20 B/P (MAP) 143/86 (105) 143/86 156/85 (108) Pulse Ox 100 98 O2 Delivery Nasal Cannula Nasal Cannula Room Air O2 Flow Rate 2.0 2.0 10/21/18 10/21/18 10/21/18 10/21/18 07:00 07:20 07:30 09:04 Temp 97.8 97.8 Pulse 70 70 Resp 16 B/P (MAP) 178/99 (125) 178/99 Pulse Ox 95 94 O2 Delivery Room Air Room Air Room Air 10/21/18 10/21/18 10/21/18 10/21/18 09:05 09:06 09:09 11:00 Temp 97.9 97.9 Pulse 70 70 70 71 Resp 18 B/P (MAP) 178/99 178/99 178/99 140/85 (103) Pulse Ox 100 O2 Delivery Room Air 10/21/18 11:45 O2 Delivery Room Air Intake and Output 10/20/18 10/20/18 10/21/18 15:00 23:00 07:00 Intake Total 750 ml 550 ml Balance 750 ml 550 ml NEFTALI BURGER MD Oct 21, 2018 13:59
--- NOTE | 2018-10-21 14:09 | PDOC ---
SURGICAL PROGRESS NOTE Subjective Pt without c/o, appears sleepy in chair, noted by nursing to have decreased sats when sleeping Vital Signs Vital Signs Date Time Temp Pulse Resp B/P (MAP) Pulse Ox O2 Delivery O2 Flow Rate FiO2 10/21/18 11:45 Room Air 10/21/18 11:00 97.9 71 18 140/85 (103) 100 97.9 10/20/18 22:24 2.0 I&O Intake and Output 10/21/18 07:00 Intake Total 1300 ml Balance 1300 ml Intake Oral 1300 ml # Voids 6 General: Alert, No acute distress Abdomen: Soft, No tenderness Labs Laboratory Tests Test 10/20/18 04:00 10/21/18 07:31 10/21/18 07:35 White Blood Count 6.0 x10^3/uL (4.0-11.0) 6.8 x10^3/uL (4.0-11.0) Red Blood Count 4.86 x10^6/uL (4.30-5.70) 5.46 x10^6/uL (4.30-5.70) Hemoglobin 12.4 g/dL (13.0-17.5) 13.8 g/dL (13.0-17.5) Hematocrit 39.7 % (39.0-53.0) 45.2 % (39.0-53.0) Mean Corpuscular Volume 82 fL (79-100) 83 fL (79-100) Mean Corpuscular Hemoglobin 26 pg (25-35) 25 pg (25-35) Mean Corpuscular Hemoglobin Concent 31 g/dL (31-37) 31 g/dL (31-37) Red Cell Distribution Width 20.5 % (11.5-14.5) 20.8 % (11.5-14.5) Platelet Count 155 x10^3/uL (140-400) 161 x10^3/uL (140-400) Neutrophils (%) (Auto) 57 % (31-73) 69 % (31-73) Lymphocytes (%) (Auto) 14 % (24-48) 7 % (24-48) Monocytes (%) (Auto) 18 % (0-9) 15 % (0-9) Eosinophils (%) (Auto) 10 % (0-3) 9 % (0-3) Basophils (%) (Auto) 1 % (0-3) 1 % (0-3) Neutrophils # (Auto) 3.4 x10^3uL (1.8-7.7) 4.7 x10^3uL (1.8-7.7) Lymphocytes # (Auto) 0.8 x10^3/uL (1.0-4.8) 0.5 x10^3/uL (1.0-4.8) Monocytes # (Auto) 1.1 x10^3/uL (0.0-1.1) 1.0 x10^3/uL (0.0-1.1) Eosinophils # (Auto) 0.6 x10^3/uL (0.0-0.7) 0.6 x10^3/uL (0.0-0.7) Basophils # (Auto) 0.0 x10^3/uL (0.0-0.2) 0.0 x10^3/uL (0.0-0.2) Sodium Level 143 mmol/L (136-145) 143 mmol/L (136-145) Potassium Level 3.4 mmol/L (3.5-5.1) 3.5 mmol/L (3.5-5.1) Chloride Level 105 mmol/L (98-107) 106 mmol/L (98-107) Carbon Dioxide Level 27 mmol/L (21-32) 28 mmol/L (21-32) Anion Gap 11 (6-14) 9 (6-14) Blood Urea Nitrogen 12 mg/dL (8-26) 10 mg/dL (8-26) Creatinine 1.2 mg/dL (0.7-1.3) 1.2 mg/dL (0.7-1.3) Estimated GFR (Cockcroft-Gault) 70.1 70.1 BUN/Creatinine Ratio 10 (6-20) 8 (6-20) Glucose Level 96 mg/dL (70-99) 101 mg/dL (70-99) Calcium Level 8.5 mg/dL (8.5-10.1) 9.1 mg/dL (8.5-10.1) Total Bilirubin 0.8 mg/dL (0.2-1.0) 0.9 mg/dL (0.2-1.0) Aspartate Amino Transf (AST/SGOT) 16 U/L (15-37) 15 U/L (15-37) Alanine Aminotransferase (ALT/SGPT) 8 U/L (16-63) 9 U/L (16-63) Alkaline Phosphatase 110 U/L (46-116) 127 U/L (46-116) Total Protein 7.1 g/dL (6.4-8.2) 8.1 g/dL (6.4-8.2) Albumin 2.7 g/dL (3.4-5.0) 2.9 g/dL (3.4-5.0) Albumin/Globulin Ratio 0.6 (1.0-1.7) 0.6 (1.0-1.7) Laboratory Tests Test 10/21/18 07:31 10/21/18 07:35 White Blood Count 6.8 x10^3/uL (4.0-11.0) Red Blood Count 5.46 x10^6/uL (4.30-5.70) Hemoglobin 13.8 g/dL (13.0-17.5) Hematocrit 45.2 % (39.0-53.0) Mean Corpuscular Volume 83 fL (79-100) Mean Corpuscular Hemoglobin 25 pg (25-35) Mean Corpuscular Hemoglobin Concent 31 g/dL (31-37) Red Cell Distribution Width 20.8 % (11.5-14.5) Platelet Count 161 x10^3/uL (140-400) Neutrophils (%) (Auto) 69 % (31-73) Lymphocytes (%) (Auto) 7 % (24-48) Monocytes (%) (Auto) 15 % (0-9) Eosinophils (%) (Auto) 9 % (0-3) Basophils (%) (Auto) 1 % (0-3) Neutrophils # (Auto) 4.7 x10^3uL (1.8-7.7) Lymphocytes # (Auto) 0.5 x10^3/uL (1.0-4.8) Monocytes # (Auto) 1.0 x10^3/uL (0.0-1.1) Eosinophils # (Auto) 0.6 x10^3/uL (0.0-0.7) Basophils # (Auto) 0.0 x10^3/uL (0.0-0.2) Sodium Level 143 mmol/L (136-145) Potassium Level 3.5 mmol/L (3.5-5.1) Chloride Level 106 mmol/L (98-107) Carbon Dioxide Level 28 mmol/L (21-32) Anion Gap 9 (6-14) Blood Urea Nitrogen 10 mg/dL (8-26) Creatinine 1.2 mg/dL (0.7-1.3) Estimated GFR (Cockcroft-Gault) 70.1 BUN/Creatinine Ratio 8 (6-20) Glucose Level 101 mg/dL (70-99) Calcium Level 9.1 mg/dL (8.5-10.1) Total Bilirubin 0.9 mg/dL (0.2-1.0) Aspartate Amino Transf (AST/SGOT) 15 U/L (15-37) Alanine Aminotransferase (ALT/SGPT) 9 U/L (16-63) Alkaline Phosphatase 127 U/L (46-116) Total Protein 8.1 g/dL (6.4-8.2) Albumin 2.9 g/dL (3.4-5.0) Albumin/Globulin Ratio 0.6 (1.0-1.7) Problem List VIh with obstruction, appears improved cont supportive care, defer oxygen to primary. RANJIT BOYCE MD Oct 21, 2018 14:08
[2018-10-21 15:00] VITALS: BP 131/88
[2018-10-21 19:00] VITALS: BP 116/69
[2018-10-21] MEDS: FAMOTIDINE 20 MG TABLET. PO SCH (22:29)
[2018-10-21 23:00] VITALS: BP 142/102
[2018-10-22 03:00] VITALS: BP 135/88
[2018-10-22] MEDS: IPRATRPIUM/ALBUTEROL 0.5/2.5MG 3 ML NEBU. NEB SCH ×2 (05:57→10:43)
[2018-10-22 07:00] VITALS: BP 154/91
[2018-10-22] MEDS ORDERED: HYDR-2868 PO (08:04)
[2018-10-22] MEDS ORDERED: HALO2TAB PO (08:04)
[2018-10-22] MEDS ORDERED: AMLO10TA8 PO (08:04)
[2018-10-22] MEDS ORDERED: OLAN2.5T11 PO (08:04)
--- NOTE | 2018-10-22 08:05 | DISCH ---
DISCHARGE DISCHARGE INFORMATION: DISCHARGE DATE: Oct 22, 2018 CONDITION ON DISCHARGE: Stable CODE STATUS: Code Status: Full RETIREMENT: SNF STAY <30 DAYS: Yes HOSPICE: HOSPICE: No HOSPICE EVAL & TREAT: No LTAC: ADMIT TO LTAC: No POST DISCHARGE ORDERS: ACTIVITY ORDERS: Activity as tolerated WEIGHT BEARING STATUS: As tolerated DIET AFTER DISCHARGE: Cardiac WOUND/INCISION CARE: Change dressing, Reinforce dressing PRN CHECKS AFTER DISCHARGE: CHECKS AFTER DISCHARGE: Check blood press - daily, Weigh Yourself Daily FOLLOW-UP: PHYSICIAN FOLLOW-UP: dr luz/his surgeon 2 weeks or upon snu dc TREATMENT/EQUIPMENT ORDERS: ADAPTIVE EQUIPMENT NEEDED: Brace/splint Physical Therapy For: Evalulation/Treatment Occupational Therapy For: Evaluation/Treatment Speech Language Pathology For: Evaluation/Treatment DISCHARGE MEDICATIONS: Home Meds Active Scripts Haloperidol (HALOPERIDOL) 2 Mg Tablet, 1 TAB PO BID for agitatiopm, #60 TAB 1 Refill Prov:RAJIV DIAMOND MD 10/22/18 Olanzapine (OLANZAPINE) 2.5 Mg Tablet, 2.5 MG PO DAILY for agitation MDD 1 for 30 Days, #30 TAB Prov:RAJIV DIAMOND MD 10/22/18 Amlodipine Besylate (AMLODIPINE BESYLATE) 10 Mg Tablet, 10 MG PO DAILY for htn MDD 1 for 30 Days, #30 TAB Prov:RAJIV IDAMOND MD 10/22/18 Hydralazine Hcl (HYDRALAZINE HCL) 25 Mg Tablet, 25 MG PO TID for htn MDD 1 for 30 Days, #90 TAB Prov:RAJIV DIAMOND MD 10/22/18 Colchicine (COLCRYS) 0.6 Mg Tablet, 0.6 MG PO DAILY for 30 Days, #30 TAB Prov:REJI ENG MD 01/03/18 Aspirin (ASPIRIN EC) 81 Mg Tablet.dr, 81 MG PO DAILYWBKFT for 30 Days, #30 TAB.SR Prov:REJI ENG MD 01/03/18 Ipratropium/Albuterol Sulfate (DUONEB 0.5-3(2.5) MG/3 ML) 3 Ml Ampul.neb, 3 ML NEB RTQID for 30 Days, #120 EACH Prov:REJI ENG MD 01/03/18 Metoprolol Tartrate (METOPROLOL TARTRATE) 50 Mg Tablet, 2 TAB PO BID for 30 Days , #120 TAB 5 Refills Prov:REJI ENG MD 01/03/18 Reported Medications Nystatin (NYSTATIN) 15 Gm Powder, 1 UMANG TP BID for excoriation, #1 BOTTLE 10/17/18 Magnesium Hydroxide (MILK OF MAGNESIA) 400 Mg/5 Ml Oral.susp, 400 MG PO PRN DAILY PRN for INDIGESTION, MISC 10/17/18 Magnesium Oxide (MAG-OXIDE) 400 Mg Tablet, 1 TAB PO BID for mag replacement, # 60 TAB 5 Refills 10/17/18 Losartan Potassium (LOSARTAN POTASSIUM) 100 Mg Tablet, 100 MG PO DAILY for HYPERTENSION, TAB 10/17/18 Furosemide (LASIX) 20 Mg Tablet, 1 TAB PO DAILY for chf, #90 TAB 1 Refill 10/17/18 Potassium Chloride (POTASSIUM CHLORIDE) 20 Meq Tablet.er, 20 MEQ PO DAILY for lasix therapy, TAB.SR 10/15/18 Polyethylene Glycol 3350 (MIRALAX) 17 Gm Powd.pack, 1 PACKET PO PRN DAILY PRN for CONSTIPATION, #30 PACKET 3 Refills 03/09/16 Hydrocodone/Acetaminophen (Lortab 5-325 mg Tablet) 1 Each Tablet, 1 TAB PO PRN Q4HRS PRN for PAIN, TAB 0 Refills 03/09/16 Acetaminophen (TYLENOL) 325 Mg Tablet, 1 TAB PO PRN Q6HRS PRN for FEVER, #30 TAB 03/09/16 Famotidine (FAMOTIDINE) 20 Mg Tablet, 20 MG PO HS, TAB 03/05/16 RAJIV DIAMOND MD Oct 22, 2018 08:05
--- NOTE | 2018-10-22 09:17 | PDOC ---
SURGICAL PROGRESS NOTE Subjective tolerating diet had stool looking for keys Vital Signs Vital Signs Date Time Temp Pulse Resp B/P (MAP) Pulse Ox O2 Delivery O2 Flow Rate FiO2 10/22/18 07:00 98.2 70 16 154/91 (112) 97 Room Air 98.2 I&O Intake and Output 10/22/18 06:59 Intake Total 540 ml Balance 540 ml Intake Oral 540 ml # Voids 6 # Bowel Movements 1 General: Alert, Oriented X3, Cooperative, No acute distress Abdomen: Soft, No tenderness Labs Laboratory Tests Test 10/21/18 07:31 10/21/18 07:35 White Blood Count 6.8 x10^3/uL (4.0-11.0) Red Blood Count 5.46 x10^6/uL (4.30-5.70) Hemoglobin 13.8 g/dL (13.0-17.5) Hematocrit 45.2 % (39.0-53.0) Mean Corpuscular Volume 83 fL (79-100) Mean Corpuscular Hemoglobin 25 pg (25-35) Mean Corpuscular Hemoglobin Concent 31 g/dL (31-37) Red Cell Distribution Width 20.8 % (11.5-14.5) Platelet Count 161 x10^3/uL (140-400) Neutrophils (%) (Auto) 69 % (31-73) Lymphocytes (%) (Auto) 7 % (24-48) Monocytes (%) (Auto) 15 % (0-9) Eosinophils (%) (Auto) 9 % (0-3) Basophils (%) (Auto) 1 % (0-3) Neutrophils # (Auto) 4.7 x10^3uL (1.8-7.7) Lymphocytes # (Auto) 0.5 x10^3/uL (1.0-4.8) Monocytes # (Auto) 1.0 x10^3/uL (0.0-1.1) Eosinophils # (Auto) 0.6 x10^3/uL (0.0-0.7) Basophils # (Auto) 0.0 x10^3/uL (0.0-0.2) Sodium Level 143 mmol/L (136-145) Potassium Level 3.5 mmol/L (3.5-5.1) Chloride Level 106 mmol/L (98-107) Carbon Dioxide Level 28 mmol/L (21-32) Anion Gap 9 (6-14) Blood Urea Nitrogen 10 mg/dL (8-26) Creatinine 1.2 mg/dL (0.7-1.3) Estimated GFR (Cockcroft-Gault) 70.1 BUN/Creatinine Ratio 8 (6-20) Glucose Level 101 mg/dL (70-99) Calcium Level 9.1 mg/dL (8.5-10.1) Total Bilirubin 0.9 mg/dL (0.2-1.0) Aspartate Amino Transf (AST/SGOT) 15 U/L (15-37) Alanine Aminotransferase (ALT/SGPT) 9 U/L (16-63) Alkaline Phosphatase 127 U/L (46-116) Total Protein 8.1 g/dL (6.4-8.2) Albumin 2.9 g/dL (3.4-5.0) Albumin/Globulin Ratio 0.6 (1.0-1.7) Assessment/Plan ok to dc from surgical pov CARLOS MANUEL ALFREDO APRN Oct 22, 2018 09:17
[2018-10-22] MEDS: ASPIRIN ENTERIC COATED 81 MG TABLET.DR. PO SCH (09:35)
[2018-10-22] MEDS: METOPROLOL TART IMMED RELEASE 50 MG TABLET. PO SCH (09:36)
[2018-10-22] MEDS: LOSARTAN POTASSIUM 50 MG TABLET. PO SCH (09:37)
[2018-10-22] MEDS: MAGNESIUM OXIDE 400 MG TABLET PO SCH (09:37)
[2018-10-22] MEDS: POTASSIUM CHLORIDE 10 MEQ TABLET.ER. PO SCH (09:37)
[2018-10-22] MEDS: OLANZapine 2.5 MG TABLET PO SCH (09:38)
[2018-10-22] MEDS: CHLORTHALIDONE 25 MG TABLET. PO SCH (09:38)
[2018-10-22] MEDS: hydrALAZINE 25 MG TABLET PO SCH ×2 (09:38→14:00)
[2018-10-22] MEDS: amLODIPine BESYLATE 10 MG TABLET PO SCH (09:39)
--- NOTE | 2018-10-22 09:47 | PDOC3 ---
Discharge Summary Visit Information Date of Admission: Oct 14, 2018 Date of Discharge: Oct 22, 2018 Admitting Diagnosis Comment: dementia with evening behavioral disorder, sundowning, CKD stage 3- Abd pain/vomiting resolved . : SBO, general surgery following, currenlty advancing diet as tolerated, SBO resolved Proteinuria +, Accelerated HTN: continue wtih current managment, add hydralazine PRN COPD with moderate to severe pulmonary HTN Chronic diastolic CHF: small bilateral pleural effusion otherwise clinically compensated Hx of AFIB; chronic disatolic CHF Final Diagnosis VIH with SBO Brief Hospital Course Allergies Allergies Coded Allergies Type Severity Reaction Last Updated Verified Penicillins Allergy Intermediate Itching 03/06/16 Yes I S O L A T I O N *CONTACT* Allergy Unknown 10/16/18 Yes Vital Signs Vital Signs Date Time Temp Pulse Resp B/P (MAP) Pulse Ox O2 Delivery O2 Flow Rate FiO2 10/22/18 07:00 98.2 70 16 154/91 (112) 97 Room Air 98.2 Lab Results Laboratory Tests Test 10/21/18 07:31 10/21/18 07:35 White Blood Count 6.8 x10^3/uL (4.0-11.0) Red Blood Count 5.46 x10^6/uL (4.30-5.70) Hemoglobin 13.8 g/dL (13.0-17.5) Hematocrit 45.2 % (39.0-53.0) Mean Corpuscular Volume 83 fL (79-100) Mean Corpuscular Hemoglobin 25 pg (25-35) Mean Corpuscular Hemoglobin Concent 31 g/dL (31-37) Red Cell Distribution Width 20.8 % (11.5-14.5) Platelet Count 161 x10^3/uL (140-400) Neutrophils (%) (Auto) 69 % (31-73) Lymphocytes (%) (Auto) 7 % (24-48) Monocytes (%) (Auto) 15 % (0-9) Eosinophils (%) (Auto) 9 % (0-3) Basophils (%) (Auto) 1 % (0-3) Neutrophils # (Auto) 4.7 x10^3uL (1.8-7.7) Lymphocytes # (Auto) 0.5 x10^3/uL (1.0-4.8) Monocytes # (Auto) 1.0 x10^3/uL (0.0-1.1) Eosinophils # (Auto) 0.6 x10^3/uL (0.0-0.7) Basophils # (Auto) 0.0 x10^3/uL (0.0-0.2) Sodium Level 143 mmol/L (136-145) Potassium Level 3.5 mmol/L (3.5-5.1) Chloride Level 106 mmol/L (98-107) Carbon Dioxide Level 28 mmol/L (21-32) Anion Gap 9 (6-14) Blood Urea Nitrogen 10 mg/dL (8-26) Creatinine 1.2 mg/dL (0.7-1.3) Estimated GFR (Cockcroft-Gault) 70.1 BUN/Creatinine Ratio 8 (6-20) Glucose Level 101 mg/dL (70-99) Calcium Level 9.1 mg/dL (8.5-10.1) Total Bilirubin 0.9 mg/dL (0.2-1.0) Aspartate Amino Transf (AST/SGOT) 15 U/L (15-37) Alanine Aminotransferase (ALT/SGPT) 9 U/L (16-63) Alkaline Phosphatase 127 U/L (46-116) Total Protein 8.1 g/dL (6.4-8.2) Albumin 2.9 g/dL (3.4-5.0) Albumin/Globulin Ratio 0.6 (1.0-1.7) Brief Hospital Course Mr. Demarco is a 83 old Citizen Of [place] Citizen [place] male came from home admitted because of ventral inguinal hernia that needed surgery but postop course remarkable for SBO hence prolonged hospital stay. He is very weak and can barely ambulate around the halls hence SNU also needed. Some elements in his course included sundowning, CK D stage III and some dementia with behavioral disorder manifested which we have controlled. Also some accelerated hypertension needing some blood pressure meds and is all on chart. Cleared from surgeon to DC and follow-up with him 2-4 weeks time Procedures performed ventral inguinal hernia repair Full code Discharge disposition to [place] Discharge Information Condition at Discharge: Improved, Stable Follow Up: Weeks (4 weeks with her surgeon) Disposition/Orders: Other (snu) Scheduled Amlodipine Besylate (Amlodipine Besylate) 10 Mg Tablet, 10 MG PO DAILY for htn MDD 1 for 30 Days, #30 Prescribed by: RAJIV DIAMOND on 10/22/18 0804 Aspirin (Aspirin Ec) 81 Mg Tablet.dr, 81 MG PO DAILYWBKFT for 30 Days, #30 Prescribed by: REJI ENG on 01/03/18 120 Last Action: Continued on 10/17/18 1222 by RANJIT BILLY Colchicine (Colcrys) 0.6 Mg Tablet, 0.6 MG PO DAILY for 30 Days, #30 Prescribed by: REJI ENG on 01/03/181206 Last Taken: UNKNOWN on Unknown Date & Time Last Action: Last Taken Edited on 10/17/18 135 by RANJIT BILLY Famotidine (Famotidine) 20 Mg Tablet, 20 MG PO HS, (Reported) Entered as Reported by: JARON HELTON on 03/05/16 0901 Last Taken: UNKNOWN on Unknown Date & Time Last Action: Continued on 10/17 1406 by RANJIT BILLY Furosemide (Lasix) 20 Mg Tablet, 1 TAB PO DAILY for chf, #90 Ref 1 (Reported) Entered as Reported by: RANJIT BILLY on 10/17/181351 Last Taken: UNKNOWN on Unknown Date & Time Last Action: Continued on 10/17 by RANJIT BILLY Haloperidol (Haloperidol) 2 Mg Tablet, 1 TAB PO BID for agitatiopm, #60 Ref 1 Prescribed by: RAJIV DIAMOND on 10/22/18 0804 Hydralazine Hcl (Hydralazine Hcl) 25 Mg Tablet, 25 MG PO TID for htn MDD 1 for 30 Days, #90 Prescribed by: RAJIV DIAMOND on 10/22/18 0804 Ipratropium/Albuterol Sulfate (Duoneb 0.5-3(2.5) Mg/3 Ml) 3 Ml Ampul.neb, 3 ML NEB RTQID for 30 Days, #120 Prescribed by: REJI ENG on 01/03/18 120 Last Taken: UNKNOWN on Unknown Date & Time Last Action: Continued on 10/17 1406 by RANJIT BILLY Losartan Potassium (Losartan Potassium) 100 Mg Tablet, 100 MG PO DAILY for HYPERTENSION, (Reported) Entered as Reported by: RANJIT BILLY on 10/17/181351 Last Taken: UNKNOWN on Unknown Date & Time Last Action: New Order on 10/17 by RANJIT BILLY Magnesium Oxide (Mag-Oxide) 400 Mg Tablet, 1 TAB PO BID for mag replacement, # 60 Ref 5 (Reported) Entered as Reported by: RANJIT BILLY on 10/17/181351 Last Taken: UNKNOWN on Unknown Date & Time Last Action: Converted on 10/17 1406 by RANJIT BILLY Metoprolol Tartrate (Metoprolol Tartrate) 50 Mg Tablet, 2 TAB PO BID for 30 Days , #120 Ref 5 Prescribed by: REJI ENG on 01/03/18 1207 Last Action: Continued on 10/17/18 1222 by RANJIT BILLY Nystatin (Nystatin) 15 Gm Powder, 1 UMANG TP BID for excoriation, #1 (Reported) Entered as Reported by: RANJIT BILLY on 10/17/181351 Last Taken: UNKNOWN on Unknown Date & Time Last Action: New Order on 10/17 by RANJIT BILLY Olanzapine (Olanzapine) 2.5 Mg Tablet, 2.5 MG PO DAILY for agitation MDD 1 for 30 Days, #30 Prescribed by: RAJIV DIAMOND on 10/22/18 0804 Potassium Chloride (Potassium Chloride) 20 Meq Tablet.er, 20 MEQ PO DAILY for lasix therapy, (Reported) Entered as Reported by: YING BASSETT RN on 10/15/18 0649 Last Action: Converted on 10/17/181405 by RANJIT BILLY Scheduled PRN Acetaminophen (Tylenol) 325 Mg Tablet, 1 TAB PO PRN Q6HRS PRN for FEVER, #30 ( Reported) Entered as Reported by: GIRISH CROWDER on 03/09/161531 Last Taken: UNKNOWN on Unknown Date & Time Last Action: Last Taken Edited on 10/17/181351 by RANJIT BILLY Hydrocodone/Acetaminophen (Lortab 5-325 mg Tablet) 1 Each Tablet, 1 TAB PO PRN Q4HRS PRN for PAIN, Ref 0 (Reported) Entered as Reported by: GIRISH CROWDER on 03/09/161531 Last Taken: UNKNOWN on Unknown Date & Time Last Action: Last Taken Edited on 10/17/181351 by RANJIT BILLY Magnesium Hydroxide (Milk Of Magnesia) 400 Mg/5 Ml Oral.susp, 400 MG PO PRN DAILY PRN for INDIGESTION, (Reported) Entered as Reported by: RANJIT BILLY on 10/17/18 1352 Last Taken: UNKNOWN on Unknown Date & Time Last Action: New Order on 10/17 135 by RANJIT BILLY Polyethylene Glycol 3350 (Miralax) 17 Gm Powd.pack, 1 PACKET PO PRN DAILY PRN for CONSTIPATION, #30 Ref 3 (Reported) Entered as Reported by: GIRISH CROWDER on 03/09/16 1533 Last Taken: UNKNOWN on Unknown Date & Time Last Action: Converted on 10/17 1406 by RAJIV GUTIERRES MD Oct 22, 2018 09:47
[2018-10-22] MEDS: NYSTATIN TOPICAL POWDER 15GM BOTTLE. TP SCH (09:48)
[2018-10-22 11:00] VITALS: BP 127/80
[2018-10-22 11:21] LABS: ALBUMIN 2.8 g/dL (3.4-5.0); ALBUMIN/GLOBULIN RATIO 0.6 (1.0-1.7); CALCIUM 8.9 mg/dL (8.5-10.1); CREATININE 1.1 mg/dL (0.7-1.3); GFR 77.5; POTASSIUM 3.9 mmol/L (3.5-5.1); TOTAL BILIRUBIN 0.9 mg/dL (0.2-1.0); TOTAL PROTEIN 7.3 g/dL (6.4-8.2)
--- NOTE | 2018-10-22 11:33 | NUR ---
[facility] following up with pt dc plan. Pt will tentatively dc today and return to LTC at [facility] between [phone]. Pt will be transported by [facility]. [facility] phoned and faxed orders, phone: [phone], fax: [phone]. Pt choice and pts rights forms were signed [facility] due to confusion and placed in chart. Pt and pts RN have been notified. [facility] left message for Makenzie, phone: [phone] outlining dc plan. [facility] requested return call to confirm receipt of message.
--- NOTE | 2018-10-22 15:05 | NUR ---
Pt was discharged to [facility] at 1455 today in stable condition with all personal belongings. Report called into [facility], packet given to facility transportation personnel, all pertinent information faxed to [facility]. Pt was escorted via and accompanied by transportation to the main exit where he was driven by [employer] van to [facility].
== END 2018-10-22 14:55 | disposition home or self-care (01) | DRG 388 ==
LOC: ER 18:41 → 2 SOUTH 22:05 → 2 NORTH 23:42 → 4 NORTH 10-20 11:29
PROVIDERS: ADMIT Internal Medicine; ATTEND Internal Medicine
DX: K56.609 Unspecified intestinal obstruction, unspecified as to partial versus complete obstruction (principal); G93.41 Metabolic encephalopathy; N17.0 Acute kidney failure with tubular necrosis; I50.32 Chronic diastolic (congestive) heart failure; D68.9 Coagulation defect, unspecified; F03.91 Unspecified dementia, unspecified severity, with behavioral disturbance; I24.8 Other forms of acute ischemic heart disease; K40.90 Unilateral inguinal hernia, without obstruction or gangrene, not specified as recurrent; I16.0 Hypertensive urgency; K74.60 Unspecified cirrhosis of liver; J44.9 Chronic obstructive pulmonary disease, unspecified; N18.3 Chronic kidney disease, stage 3 (moderate); I27.20 Pulmonary hypertension, unspecified; R74.8 Abnormal levels of other serum enzymes; I49.5 Sick sinus syndrome; E66.01 Morbid (severe) obesity due to excess calories; D64.9 Anemia, unspecified; N40.0 Benign prostatic hyperplasia without lower urinary tract symptoms; K21.9 Gastro-esophageal reflux disease without esophagitis; I48.2 Chronic atrial fibrillation; I15.8 Other secondary hypertension; H91.90 Unspecified hearing loss, unspecified ear; E78.5 Hyperlipidemia, unspecified; R51 Headache; R60.0 Localized edema; R19.00 Intra-abdominal and pelvic swelling, mass and lump, unspecified site; R13.10 Dysphagia, unspecified; I89.0 Lymphedema, not elsewhere classified; F29 Unspecified psychosis not due to a substance or known physiological condition; E66.9 Obesity, unspecified; E78.00 Pure hypercholesterolemia, unspecified; M19.90 Unspecified osteoarthritis, unspecified site; K57.90 Diverticulosis of intestine, part unspecified, without perforation or abscess without bleeding; F32.9 Major depressive disorder, single episode, unspecified; I25.10 Atherosclerotic heart disease of native coronary artery without angina pectoris; M10.9 Gout, unspecified; Z86.73 Personal history of transient ischemic attack (TIA), and cerebral infarction without residual deficits; Z90.49 Acquired absence of other specified parts of digestive tract; I25.2 Old myocardial infarction; Z82.49 Family history of ischemic heart disease and other diseases of the circulatory system; Z87.891 Personal history of nicotine dependence; Z99.3 Dependence on wheelchair
CPT/HCPCS: 36415; 70450; 71045; 74022; 74177; 80053; 80061; 81001; 83605; 83690; 83880; 84443; 84484; 85007; 85025; 85610; 87086; 87641; 93005; 93306; 94640; 94760; 96374; 96375; 96376; J0360; J1630; J2060; J2405; J3010; J3490; J7030; J7050; J7620; Q9967; 97110; 97116; 97530; 97535; 99285-25

== ENCOUNTER 2019-01-13 05:13 | Inpatient (IN) | payer OTHER ==
[~2019-01-13] VITALS: Ht 165.1 cm; Wt 101.2 kg
[~2019-01-13 05:13] MED LIST changes: +AMLO10TA8 PO; +FURO-69 PO; +HALO2TAB PO; +HYDR-2868 PO; +LOSA100T14 PO; +MAGN400O7 PO; +MAGN400T22 PO; +NYST15PO9 TP; +OLAN2.5T11 PO; +POTA20TA82 PO
[2019-01-13 05:39] LABS: BASE EXCESS ABG -2 mmol/L (-3-3); HCO3 ABG 23 mmol/L (21-28); PCO2 ABG 42 mmHg (35-46); PO2 ABG 110 mmHg (65-108); SAT O2 ABG 98 % (92-99)
[2019-01-13 05:45] LABS: BASO % 0 % (0-3); EOS # 0.9 x10^3/uL (0.0-0.7); EOS % 14 % (0-3); HEMATOCRIT 43.5 % (39.0-53.0); HEMOGLOBIN 13.9 g/dL (13.0-17.5); LYMPH # 0.9 x10^3/uL (1.0-4.8); LYMPH % 14 % (24-48); MEAN CORPUSCULAR HEMOGLOBIN 29 pg (25-35); MEAN CORPUSCULAR HGB CONC 32 g/dL (31-37); MEAN CORPUSCULAR VOLUME 89 fL (79-100); MONO # 0.7 x10^3/uL (0.0-1.1); MONO % 11 % (0-9); NEUT % 61 % (31-73); PLATELET COUNT 186 x10^3/uL (140-400); RED BLOOD COUNT 4.87 x10^6/uL (4.30-5.70); RED CELL DISTRIBUTION WIDTH 22.3 % (11.5-14.5); WHITE BLOOD COUNT 6.7 x10^3/uL (4.0-11.0)
[2019-01-13] MEDS ORDERED: IPRATRPIUM/ALBUTEROL 0.5/2.5MG 3 ML NEBU. NEB ONE (05:45)
[2019-01-13] MEDS ORDERED: ASPIRIN 325 MG TABLET PO ONE (05:45)
[2019-01-13] MEDS ORDERED: DEXAMETHASONE SOD PHOS 4 MG/ML VIAL IV ONE (05:45)
[2019-01-13] MEDS ORDERED: ALBUTEROL SULFATE 2.5 MG/3 ML NEBU. CONT NEB ONE (06:00)
--- NOTE | 2019-01-13 06:07 | PHYS DOC ---
Past Medical History Past Medical History: A-Fib, Anemia, Arthritis, Arrhythmia, CHF, COPD, GERD, High Cholesterol, Hypertension, TIA, Other Additional Past Medical Histor: H/A, OBESITY, [place], BPH,AMS,LYMPHEDEMA,MDD,PSYCHOSIS,NSTEMI,DYSPHAGIA (LLOYD ADAMS DO) Past Surgical History: Appendectomy, Pacemaker, Other Additional Past Surgical Histo: mass removed from abdomen (LLOYD ADAMS DO) Alcohol Use: None Drug Use: None (LLOYD ADAMS DO) Adult General Chief Complaint Chief Complaint: DYSPNEA/RESPIRATOY DISTRESS HPI HPI Patient is an 83 year old male with past medical history of CHF and COPD who presents with increased SOB, work of breathing, and wheezing over the last 24 hours. Patient lives in a intermediate and received a breathing treatment prior to being picked up by EMS. EMS administered 2 more breathing treatments en route. Upon arrival in the ED the patient demonstrated accessory muscle use with respirations and inability to speak through his breathing difficulties. Patient's O2 saturations were consistently above 95% on 100% FiO2 NC. Patient unable to provide any further history due to respiratory distress. (LLOYD ADAMS DO) Review of Systems Review of Systems Respiratory: Dyspnea Unable to obtain due to respiratory distress (LLOYD ADAMS DO) Current Medications Current Medications Current Medications Medications (Trade) Dose Ordered Sig/Katrina Start Time Stop Time Status Last Admin Dose Admin Albuterol Sulfate (Ventolin Neb Soln) 10 mg 1X ONCE 01/13/19 06:00 01/13/19 06:01 DC 01/13/19 06:01 10 MG Albuterol/ Ipratropium (Duoneb) 3 ml 1X ONCE 01/13/19 05:45 01/13/19 05:45 DC Aspirin (Jorge Luis Aspirin) 325 mg 1X ONCE 01/13/19 05:45 01/13/19 05:46 DC 01/13/19 06:02 325 MG Dexamethasone Sodium Phosphate (Decadron) 10 mg 1X ONCE 01/13/19 05:45 01/13/19 05:46 DC 01/13/19 06:04 10 MG (JOSE R FREEMAN MD) Allergies Allergies Allergies Coded Allergies Type Severity Reaction Last Updated Verified Penicillins Allergy Intermediate Itching 03/06/16 Yes I S O L A T I O N *CONTACT* Allergy Unknown 2/19/19 Yes (JOSE R FREEMAN MD) Physical Exam Physical Exam Constitutional: 83 yo male in moderate respiratory distress., obese HENT: Normocephalic, atraumatic, bilateral TMs normal, oropharynx moist, no oral exudates, nose normal. [] Eyes: EOMI, conjunctiva normal, no discharge. [] Cardiovascular: Heart rate normal, with irregularly irregular rhythm Lungs & Thorax: Diffuse wheezing on lung auscultation. Tachypnea. Abdomen: Soft, no tenderness, distended Skin: Warm, dry, no erythema, no rash. [] Extremities: 2+ pitting edema in LE's b/l. Venous Stasis present in LE's b/l. Neurologic: Alert and oriented X 2, normal motor function, normal sensory function, no focal deficits noted. [] Psychologic: Flat affect. (LLOYD ADAMS DO) Current Patient Data Vital Signs Vital Signs Date Time Temp Pulse Resp B/P (MAP) Pulse Ox O2 Delivery O2 Flow Rate FiO2 01/13/19 06:50 74 22 151/64 (93) 100 Aerosol Mask 01/13/19 06:00 3.0 01/13/19 05:40 97.5 97.5 (JOSE R FREEMAN MD) Lab Values Laboratory Tests Test 01/13/19 05:28 01/13/19 05:30 01/13/19 06:20 White Blood Count 6.7 x10^3/uL (4.0-11.0) Red Blood Count 4.87 x10^6/uL (4.30-5.70) Hemoglobin 13.9 g/dL (13.0-17.5) Hematocrit 43.5 % (39.0-53.0) Mean Corpuscular Volume 89 fL (79-100) Mean Corpuscular Hemoglobin 29 pg (25-35) Mean Corpuscular Hemoglobin Concent 32 g/dL (31-37) Red Cell Distribution Width 22.3 % (11.5-14.5) H Platelet Count 186 x10^3/uL (140-400) Neutrophils (%) (Auto) 61 % (31-73) Lymphocytes (%) (Auto) 14 % (24-48) L Monocytes (%) (Auto) 11 % (0-9) H Eosinophils (%) (Auto) 14 % (0-3) H Basophils (%) (Auto) 0 % (0-3) Neutrophils # (Auto) 4.0 x10^3uL (1.8-7.7) Lymphocytes # (Auto) 0.9 x10^3/uL (1.0-4.8) L Monocytes # (Auto) 0.7 x10^3/uL (0.0-1.1) Eosinophils # (Auto) 0.9 x10^3/uL (0.0-0.7) H Basophils # (Auto) 0.0 x10^3/uL (0.0-0.2) Platelet Estimate Adequate (ADEQUATE) Anisocytosis Mod Influenza Type A Antigen Negative (NEGATIVE) Influenza Type B Antigen Negative (NEGATIVE) O2 Saturation 98 % (92-99) Arterial Blood pH 7.36 (7.35-7.45) Arterial Blood pCO2 at Patient Temp 42 mmHg (35-46) Arterial Blood pO2 at Patient Temp 110 mmHg (65-108) H Arterial Blood HCO3 23 mmol/L (21-28) Arterial Blood Base Excess -2 mmol/L (-3-3) FiO2 Prothrombin Time 13.8 SEC (11.7-14.0) Prothrombin Time INR 1.1 (0.8-1.1) PTT 35 SEC (24-38) Sodium Level 141 mmol/L (136-145) Potassium Level 3.9 mmol/L (3.5-5.1) Chloride Level 106 mmol/L (98-107) Carbon Dioxide Level 23 mmol/L (21-32) Anion Gap 12 (6-14) Blood Urea Nitrogen 26 mg/dL (8-26) Creatinine 1.4 mg/dL (0.7-1.3) H Estimated GFR (Cockcroft-Gault) 58.7 BUN/Creatinine Ratio 19 (6-20) Glucose Level 118 mg/dL (70-99) H Lactic Acid Level 2.0 mmol/L (0.4-2.0) Calcium Level 8.6 mg/dL (8.5-10.1) Magnesium Level 2.1 mg/dL (1.8-2.4) Total Bilirubin 0.5 mg/dL (0.2-1.0) Aspartate Amino Transferase (AST) 13 U/L (15-37) L Alanine Aminotransferase (ALT) 16 U/L (16-63) Alkaline Phosphatase 117 U/L (46-116) H Creatine Kinase 68 U/L (39-308) Creatine Kinase MB (Mass) 1.2 ng/mL (0.0-3.6) Creatine Kinase MB Relative Index % (0-4) Troponin I Quantitative 0.042 ng/mL (0.000-0.055) QY-Ayl-F-Type Natriuretic Peptide 2648 pg/mL (0-449) H Total Protein 6.7 g/dL (6.4-8.2) Albumin 2.9 g/dL (3.4-5.0) L Albumin/Globulin Ratio 0.8 (1.0-1.7) L Laboratory Tests 01/13/19 05:28 Laboratory Tests 01/13/19 06:20 (JOSE R FREEMAN MD) Lab Values Laboratory Tests Test 01/13/19 05:28 01/13/19 05:30 White Blood Count 6.7 x10^3/uL (4.0-11.0) Red Blood Count 4.87 x10^6/uL (4.30-5.70) Hemoglobin 13.9 g/dL (13.0-17.5) Hematocrit 43.5 % (39.0-53.0) Mean Corpuscular Volume 89 fL (79-100) Mean Corpuscular Hemoglobin 29 pg (25-35) Mean Corpuscular Hemoglobin Concent 32 g/dL (31-37) Red Cell Distribution Width 22.3 % (11.5-14.5) H Platelet Count 186 x10^3/uL (140-400) Neutrophils (%) (Auto) 61 % (31-73) Lymphocytes (%) (Auto) 14 % (24-48) L Monocytes (%) (Auto) 11 % (0-9) H Eosinophils (%) (Auto) 14 % (0-3) H Basophils (%) (Auto) 0 % (0-3) Neutrophils # (Auto) 4.0 x10^3uL (1.8-7.7) Lymphocytes # (Auto) 0.9 x10^3/uL (1.0-4.8) L Monocytes # (Auto) 0.7 x10^3/uL (0.0-1.1) Eosinophils # (Auto) 0.9 x10^3/uL (0.0-0.7) H Basophils # (Auto) 0.0 x10^3/uL (0.0-0.2) Platelet Estimate Pending O2 Saturation 98 % (92-99) Arterial Blood pH 7.36 (7.35-7.45) Arterial Blood pCO2 at Patient Temp 42 mmHg (35-46) Arterial Blood pO2 at Patient Temp 110 mmHg (65-108) H Arterial Blood HCO3 23 mmol/L (21-28) Arterial Blood Base Excess -2 mmol/L (-3-3) FiO2 Laboratory Tests 01/13/19 05:28 (LLOYD ADAMS DO) EKG EKG 01/13/2019 @05:22 shows Atrial Fibrillation at 76bpm. No ST elevations noted. Wide QRS appears consistent with former ECG's. [] (LLOYD ADAMS DO) Radiology/Procedures Radiology/Procedures 2 view X Ray of Chest. (Preliminary interpretation by ED physician shows mild pleural effusions in b/l lower lobes but no discrete consolidations and appears improved in comparison to prior CXR which noted increased vascular congestion from Sep 2018 (LLOYD ADAMS DO) Radiology/Procedures [facility] [address] [place] [address] IMAGING REPORT Signed PATIENT: DARYL DEMARCO ACCOUNT: [id number] : 1935 LOCATION: ER AGE: 83 SEX: M EXAM STATUS: REG ER ORD. PHYSICIAN: LLOYD ADAMS DO REASON: dyspnea PROCEDURE: PORTABLE CHEST 1V AP chest. HISTORY: Dyspnea AP view was taken of the chest. The heart is enlarged. There is a pacemaker with an ventricular pacing lead. There are no confluent infiltrates. There is no definite effusion. There is arthritis in both shoulders. IMPRESSION: 1. No acute infiltrates. Electronically signed by: Estuardo Moralez MD (01/13/2019 6:16 AM) [facility] DICTATED and SIGNED BY: ESTUARDO MORALEZ MD DATE: 01/13/19 0616 (JOSE R FREEMAN MD) Course & Med Decision Making Course & Med Decision Making Mr. Demarco is an 83 yo male who presents with increased SOB and wheezing. Hx of COPD and CHF. Patient received 3 breathing treatments before arriving to the ED. He was placed on a continuous albuterol upon arrival and his O2 sats were around 100% consistently. Labs obtained and pending at this time. EKG stable. CXR appears somewhat improved from prior. Patient discussed and passed off to Dr. Freeman for further evaluation and final disposition. Discussed current findings and plan with patient who acknowledge understanding and agreement. (LLOYD ADAMS DO) Course & Med Decision Making Patient requiring admission for further evaluation and treatment. Discussed with Dr. Starr who is in agreement with admission. Discussed findings and plan with patient and family, who acknowledge understanding and agreement. (JOSE R FREEMAN MD) Dragon Disclaimer Dragon Disclaimer This electronic medical record was generated, in whole or in part, using a voice recognition dictation system. (LLOYD ADAMS DO) Departure Departure Impression: Primary Impression: Acute respiratory distress Additional Impressions: COPD exacerbation CHF (congestive heart failure) Chronic renal insufficiency Shortness of breath Disposition: ADMITTED INPATIENT (At 0706) Condition: GUARDED Referrals: MIKE SMITH MD (PCP) Problem Qualifiers Additional Impressions: CHF (congestive heart failure) Heart failure type: unspecified Heart failure chronicity: unspecified Qualified Codes: I50.9 - Heart failure, unspecified Chronic renal insufficiency Chronic kidney disease stage: unspecified stage Qualified Codes: N18.9 - Chronic kidney disease, unspecified LLOYD ADAMS DO January 13, 2019 06:07 JOSE R FREEMAN MD January 13, 2019 07:05
--- NOTE | 2019-01-13 06:18 | RAD ---
AP chest. HISTORY: Dyspnea AP view was taken of the chest. The heart is enlarged. There is a pacemaker with an ventricular pacing lead. There are no confluent infiltrates. There is no definite effusion. There is arthritis in both shoulders. IMPRESSION: 1. No acute infiltrates. Electronically signed by: Estuardo Moralez MD (01/13/2019 6:16 AM) [facility]
[2019-01-13 06:22] LABS: INFLUENZA A PATIENT NEGATIVE (NEGATIVE); INFLUENZA B PATIENT NEGATIVE (NEGATIVE)
[2019-01-13 06:41] LABS: PROTHROMBIN TIME PATIENT 13.8 SEC (11.7-14.0)
[2019-01-13 06:43] LABS: CALCIUM 8.6 mg/dL (8.5-10.1); CREATININE 1.4 mg/dL (0.7-1.3); GFR 58.7; POTASSIUM 3.9 mmol/L (3.5-5.1)
[2019-01-13 06:50] LABS: ALBUMIN 2.9 g/dL (3.4-5.0); ALBUMIN/GLOBULIN RATIO 0.8 (1.0-1.7); MAGNESIUM 2.1 mg/dL (1.8-2.4); TOTAL BILIRUBIN 0.5 mg/dL (0.2-1.0); TOTAL PROTEIN 6.7 g/dL (6.4-8.2)
[2019-01-13 06:57] LABS: CREATINE KINASE 68 U/L (39-308)
[2019-01-13 07:01] LABS: ANISOCYTOSIS MOD; PLT ESTIMATE ADEQUATE (ADEQUATE)
[2019-01-13] MEDS ORDERED: DOXYCYCLINE HYCLATE 100 MG in IV DEXTROSE 5% 100ML 100 ML IV ONE (07:15)
--- NOTE | 2019-01-13 07:58 | PDOC1 ---
History and Physical Date of Admission Date of Admission DATE: 01/13/19 TIME: 07:42 Identification/Chief Complaint Chief Complaint Shortness of breath Source Source: Caregiver, Chart review, Patient History of Present Illness History of Present Illness Mr Demarco is an 83 year old male wheelchair-bound SNF resident with PMHx A-Fib, Anemia, Arthritis, Arrhythmia, CHF, COPD, GERD, High Cholesterol, Hypertension, TIA, OBESITY, Hard of hearing, BPH, MDD, Dysphagia who presents with increased SOB, work of breathing, and wheezing over the last 24 hours. Received a breathing treatment at [facility] prior to being picked up by EMS. EMS administered 2 more breathing treatments en route and placed him on CPAP. In ED the patient demonstrated accessory muscle use with respirations and inability to speak through his breathing difficulties. Patient's O2 saturations were consistently above 95% on 100% FiO2 NC. Patient unable to provide any further history due to respiratory distress initially, but breathing a bit better after continuous nebs. EKG - Atrial Fibrillation at 76bpm. No ST elevations noted. Wide QRS appears consistent with former ECG's Past Medical History Cardiovascular: CAD, CHF, HTN, Hyperlipidemia, Other Pulmonary: COPD, Pneumonia GI: GERD, Other Heme/Onc: Anemia NOS Psych: Depression, Other Musculoskeletal: Osteoarthritis, Weakness Rheumatologic: Other Renal/: Chronic renal insuff, Benign prostatic enlarg. Past Surgical History Past Surgical History: Pacemaker, Cholecystectomy, Other Family History Family History: Heart Disease, Hypertension Social History Smoke: No ALCOHOL: none Drugs: None Current Problem List Problem List Problems Medical Problems: (1) Acute respiratory distress Status: Acute (2) CHF (congestive heart failure) Status: Acute (3) Chronic renal insufficiency Status: Acute (4) COPD exacerbation Status: Acute (5) Shortness of breath Status: Acute Current Medications Current Medications Current Medications Albuterol/ Ipratropium (Duoneb) 3 ml 1X ONCE NEB ; Start 01/13/19 at 05:45; Stop 01/13/19 at 05:45; Status DC Dexamethasone Sodium Phosphate (Decadron) 10 mg 1X ONCE IV Last administered on 01/13/19at 06:04; Start 01/13/19 at 05:45; Stop 01/13/19 at 05:46; Status DC Aspirin (Jorge Luis Aspirin) 325 mg 1X ONCE PO Last administered on 01/13/19at 06:02; Start 01/13/19 at 05:45; Stop 01/13/19 at 05:46; Status DC Albuterol Sulfate (Ventolin Neb Soln) 10 mg 1X ONCE CONT NEB Last administered on 01/13/19at 06:01; Start 01/13/19 at 06:00; Stop 01/13/19 at 06:01; Status DC Doxycycline Hyclate 100 mg/ Dextrose 100 ml @ 50 mls/hr 1X ONCE IV Last administered on 01/13/19at 07:23; Start 01/13/19 at 07:15; Stop 01/13/19 at 09:14 Active Scripts Active Haloperidol 2 Mg Tablet 1 Tab PO BID Olanzapine 2.5 Mg Tablet 2.5 Mg PO DAILY MDD 1 30 Days Amlodipine Besylate 10 Mg Tablet 10 Mg PO DAILY MDD 1 30 Days Hydralazine Hcl 25 Mg Tablet 25 Mg PO TID MDD 1 30 Days Colcrys (Colchicine) 0.6 Mg Tablet 0.6 Mg PO DAILY 30 Days Aspirin Ec (Aspirin) 81 Mg Tablet.dr 81 Mg PO DAILYWBKFT 30 Days Duoneb 0.5-3(2.5) Mg/3 Ml (Albuterol/Ipratropium) 3 Ml Ampul.neb 3 Ml NEB RTQID 30 Days Metoprolol Tartrate 50 Mg Tablet 2 Tab PO BID 30 Days Reported Nystatin 15 Gm Powder 1 Alberto TP BID Milk Of Magnesia (Magnesium Hydroxide) 400 Mg/5 Ml Oral.susp 400 Mg PO PRN DAILY PRN Mag-Oxide (Magnesium Oxide) 400 Mg Tablet 1 Tab PO BID Losartan Potassium 100 Mg Tablet 100 Mg PO DAILY Lasix (Furosemide) 20 Mg Tablet 1 Tab PO DAILY Potassium Chloride 20 Meq Tablet.er 20 Meq PO DAILY Miralax (Polyethylene Glycol 3350) 17 Gm Powd.pack 1 Packet PO PRN DAILY PRN Lortab 5-325 mg Tablet (Hydrocodone/Acetaminophen) 1 Each Tablet 1 Tab PO PRN Q4HRS PRN Tylenol (Acetaminophen) 325 Mg Tablet 1 Tab PO PRN Q6HRS PRN Famotidine 20 Mg Tablet 20 Mg PO HS Allergies Allergies: Coded Allergies: Penicillins (Verified Allergy, Intermediate, Itching, 03/06/16) I S O L A T I O N *CONTACT* (Verified Allergy, Unknown, 10/16/18) mrsa ROS General: YES: Fatigue, Malaise; No: Chills, Night Sweats, Appetite, Other PSYCHOLOGICAL ROS: No: Anxiety, Behavioral Disorder, Concentration difficultie, Decreased libido, Depression, Disorientation, Hallucinations, Hostility, Irritablity, Memory difficulties, Mood Swings, Obsessive thoughts, Physical abuse, Sexual abuse, Sleep disturbances, Suicidal ideation, Other Eyes: No Blurry vision, No Decreased vision, No Double vision, No Dry eyes, No Excessive tearing, No Eye Pain, No Itchy Eyes, No Loss of vision, No Photophobia, No Scotomata, No Uses contacts, No Uses glasses, No Other HEENT: No: Heacaches, Visual Changes, Hearing change, Nasal congestion, Nasal discharge, Oral lesions, Sinus pain, Sore Throat, Epistaxis, Sneezing, Snoring, Tinnitus, Vertigo, Vocal changes, Other ALLERGY AND IMMUNOLOGY: YES: Itchy/Watery Eyes; No: Hives, Insect Bite Sensitivity, Nasal Congestion, Post Nasal Drip, Seasonal Allergies, Other Hematological and Lymphatic: No: Bleeding Problems, Blood Clots, Blood Transfusions, Brusing, Night Sweats, Pallor, Swollen Lymph Nodes, Other ENDOCRINE: No: Breast Changes, Galactorrhea, Hair Pattern Changes, Hot Flashes, Malaise/lethargy, Mood Swings, Palpitations, Polydipsia/polyuria, Skin Changes, Temperature Intolerance, Unexpected Weight Changes, Other Breast: No New/Changing Breast Lumps, No Nipple changes, No Nipple discharge, No Other Respiratory: YES: Cough, Shortness of breath, SOB with excertion, Tachypnea, Wheezing; No: Hemoptysis, Orthopnea, Pleuritic Pain, Sputum Changes, Stridor, Other Cardiovascular: No Chest Pain, No Palpitations, No Orthopnea, No Paroxysmal Noc. Dyspnea, No Edema, No Lt Headedness, No Other Gastrointestinal: No Nausea, No Vomiting, No Abdominal Pain, No Diarrhea, No Constipation, No Melena, No Hematochezia, No Other Genitourinary: No Dysuria, No Frequency, No Incontinence, No Hematuria, No Retention, No Discharge, No Urgency, No Pain, No Flank Pain, No Other, No , No , No , No , No , No , No Musculoskeletal: No Gait Disturbance, No Joint Pain, No Joint Stiffness, No Joint Swelling, No Muscle Pain, No Muscular Weakness, No Pain In:, No Swelling In:, No Other Neurological: No Behavorial Changes, No Bowel/Bladder ControlChng, No Confusion, No Dizziness, No Gait Disturbance, No Headaches, No Impaired Coord/balance, No Memory Loss, No Numbness/Tingling, No Seizures, No Speech Problems, No Tremors, No Visual Changes, No Weakness, No Other Skin: No Dry Skin, No Eczema, No Hair Changes, No Lumps, No Mole Changes, No Mottling, No Nail Changes, No Pruritus, No Rash, No Skin Lesion Changes, No Other, No Acne Physical Exam General: Alert, Cooperative, moderate distress HEENT: Atraumatic, PERRLA, EOMI, Mucous membr. moist/pink Lungs: Other (Bilateral severe wheezes) Heart: S1S2, RRR, no gallops, no murmurs Abdomen: Normal bowel sounds, Soft, No tenderness, No hepatosplenomegaly, No masses Extremities: No clubbing, No cyanosis, Normal pulses, No tenderness/swelling, Other (1+ edema) Skin: Other (Stasis dermatitis) Neuro: Normal speech, Normal tone, Sensation intact, Cranial nerves 3-12 NL, Reflexes 2+ Vitals Vitals Vital Signs Date Time Temp Pulse Resp B/P (MAP) Pulse Ox O2 Delivery O2 Flow Rate FiO2 01/13/19 06:50 74 22 151/64 (93) 100 Aerosol Mask 01/13/19 06:00 3.0 01/13/19 05:40 97.5 97.5 Labs Labs Laboratory Tests Test 01/13/19 05:28 01/13/19 05:30 01/13/19 06:20 White Blood Count 6.7 x10^3/uL (4.0-11.0) Red Blood Count 4.87 x10^6/uL (4.30-5.70) Hemoglobin 13.9 g/dL (13.0-17.5) Hematocrit 43.5 % (39.0-53.0) Mean Corpuscular Volume 89 fL (79-100) Mean Corpuscular Hemoglobin 29 pg (25-35) Mean Corpuscular Hemoglobin Concent 32 g/dL (31-37) Red Cell Distribution Width 22.3 % (11.5-14.5) Platelet Count 186 x10^3/uL (140-400) Neutrophils (%) (Auto) 61 % (31-73) Lymphocytes (%) (Auto) 14 % (24-48) Monocytes (%) (Auto) 11 % (0-9) Eosinophils (%) (Auto) 14 % (0-3) Basophils (%) (Auto) 0 % (0-3) Neutrophils # (Auto) 4.0 x10^3uL (1.8-7.7) Lymphocytes # (Auto) 0.9 x10^3/uL (1.0-4.8) Monocytes # (Auto) 0.7 x10^3/uL (0.0-1.1) Eosinophils # (Auto) 0.9 x10^3/uL (0.0-0.7) Basophils # (Auto) 0.0 x10^3/uL (0.0-0.2) Platelet Estimate Adequate (ADEQUATE) Anisocytosis Mod Influenza Type A Antigen Negative (NEGATIVE) Influenza Type B Antigen Negative (NEGATIVE) O2 Saturation 98 % (92-99) Arterial Blood pH 7.36 (7.35-7.45) Arterial Blood pCO2 at Patient Temp 42 mmHg (35-46) Arterial Blood pO2 at Patient Temp 110 mmHg (65-108) Arterial Blood HCO3 23 mmol/L (21-28) Arterial Blood Base Excess -2 mmol/L (-3-3) FiO2 Prothrombin Time 13.8 SEC (11.7-14.0) Prothromb Time International Ratio 1.1 (0.8-1.1) Activated Partial Thromboplast Time 35 SEC (24-38) Sodium Level 141 mmol/L (136-145) Potassium Level 3.9 mmol/L (3.5-5.1) Chloride Level 106 mmol/L (98-107) Carbon Dioxide Level 23 mmol/L (21-32) Anion Gap 12 (6-14) Blood Urea Nitrogen 26 mg/dL (8-26) Creatinine 1.4 mg/dL (0.7-1.3) Estimated GFR (Cockcroft-Gault) 58.7 BUN/Creatinine Ratio 19 (6-20) Glucose Level 118 mg/dL (70-99) Lactic Acid Level 2.0 mmol/L (0.4-2.0) Calcium Level 8.6 mg/dL (8.5-10.1) Magnesium Level 2.1 mg/dL (1.8-2.4) Total Bilirubin 0.5 mg/dL (0.2-1.0) Aspartate Amino Transf (AST/SGOT) 13 U/L (15-37) Alanine Aminotransferase (ALT/SGPT) 16 U/L (16-63) Alkaline Phosphatase 117 U/L (46-116) Creatine Kinase 68 U/L (39-308) Creatine Kinase MB (Mass) 1.2 ng/mL (0.0-3.6) Creatine Kinase MB Relative Index % (0-4) Troponin I Quantitative 0.042 ng/mL (0.000-0.055) AW-Fhw-A-Type Natriuretic Peptide 2648 pg/mL (0-449) Total Protein 6.7 g/dL (6.4-8.2) Albumin 2.9 g/dL (3.4-5.0) Albumin/Globulin Ratio 0.8 (1.0-1.7) Laboratory Tests Test 01/13/19 05:28 01/13/19 05:30 01/13/19 06:20 White Blood Count 6.7 x10^3/uL (4.0-11.0) Red Blood Count 4.87 x10^6/uL (4.30-5.70) Hemoglobin 13.9 g/dL (13.0-17.5) Hematocrit 43.5 % (39.0-53.0) Mean Corpuscular Volume 89 fL (79-100) Mean Corpuscular Hemoglobin 29 pg (25-35) Mean Corpuscular Hemoglobin Concent 32 g/dL (31-37) Red Cell Distribution Width 22.3 % (11.5-14.5) Platelet Count 186 x10^3/uL (140-400) Neutrophils (%) (Auto) 61 % (31-73) Lymphocytes (%) (Auto) 14 % (24-48) Monocytes (%) (Auto) 11 % (0-9) Eosinophils (%) (Auto) 14 % (0-3) Basophils (%) (Auto) 0 % (0-3) Neutrophils # (Auto) 4.0 x10^3uL (1.8-7.7) Lymphocytes # (Auto) 0.9 x10^3/uL (1.0-4.8) Monocytes # (Auto) 0.7 x10^3/uL (0.0-1.1) Eosinophils # (Auto) 0.9 x10^3/uL (0.0-0.7) Basophils # (Auto) 0.0 x10^3/uL (0.0-0.2) Platelet Estimate Adequate (ADEQUATE) Anisocytosis Mod Influenza Type A Antigen Negative (NEGATIVE) Influenza Type B Antigen Negative (NEGATIVE) O2 Saturation 98 % (92-99) Arterial Blood pH 7.36 (7.35-7.45) Arterial Blood pCO2 at Patient Temp 42 mmHg (35-46) Arterial Blood pO2 at Patient Temp 110 mmHg (65-108) Arterial Blood HCO3 23 mmol/L (21-28) Arterial Blood Base Excess -2 mmol/L (-3-3) FiO2 Prothrombin Time 13.8 SEC (11.7-14.0) Prothromb Time International Ratio 1.1 (0.8-1.1) Activated Partial Thromboplast Time 35 SEC (24-38) Sodium Level 141 mmol/L (136-145) Potassium Level 3.9 mmol/L (3.5-5.1) Chloride Level 106 mmol/L (98-107) Carbon Dioxide Level 23 mmol/L (21-32) Anion Gap 12 (6-14) Blood Urea Nitrogen 26 mg/dL (8-26) Creatinine 1.4 mg/dL (0.7-1.3) Estimated GFR (Cockcroft-Gault) 58.7 BUN/Creatinine Ratio 19 (6-20) Glucose Level 118 mg/dL (70-99) Lactic Acid Level 2.0 mmol/L (0.4-2.0) Calcium Level 8.6 mg/dL (8.5-10.1) Magnesium Level 2.1 mg/dL (1.8-2.4) Total Bilirubin 0.5 mg/dL (0.2-1.0) Aspartate Amino Transf (AST/SGOT) 13 U/L (15-37) Alanine Aminotransferase (ALT/SGPT) 16 U/L (16-63) Alkaline Phosphatase 117 U/L (46-116) Creatine Kinase 68 U/L (39-308) Creatine Kinase MB (Mass) 1.2 ng/mL (0.0-3.6) Creatine Kinase MB Relative Index % (0-4) Troponin I Quantitative 0.042 ng/mL (0.000-0.055) HL-Yqn-C-Type Natriuretic Peptide 2648 pg/mL (0-449) Total Protein 6.7 g/dL (6.4-8.2) Albumin 2.9 g/dL (3.4-5.0) Albumin/Globulin Ratio 0.8 (1.0-1.7) Images Images CXR - AP. The heart is enlarged. There is a pacemaker with ventricular pacing lead. There are no confluent infiltrates. There is no definite effusion. There is arthritis in both shoulders. VTE Prophylaxis Ordered VTE Prophylaxis Devices: Yes VTE Pharmacological Prophylaxi: Yes Assessment/Plan Assessment/Plan A/P: Shortness of breath - definitely COPD exacerbation, congestion visible on CXR with BNP elevated consistent with this also being a diastolic CHF exacerbation JEANNETTE - Cr 1.1 last check, now 1.4, likely vasomotor nephropathy due to his shortness of breath with poor PO intake, however, also could be cardiorenal as he seems to be in CHF exacerbation. A-Fib - still in afib H/o SSS with PPM in place - [facility] model Anemia - likely 2/2 chronic disease, monitor CBC dCHF - BNP lower than last visit, however, he is in a CHF exacerbation COPD - in acute exacerbation currently GERD - cont PPI High Cholesterol - will cont statin Hypertension - cont home meds Obesity - counseled on weight loss Dementia - baseline unknown, however, SNF states he has significant memory problems Hard of hearing - will place hearing aides BPH - cont flomax MDD - cont meds Dysphagia - will have bedside swallow FEN - Cardiac diet PPX - Heparin FULL CODE Inpatient for respiratory distress, at least 2 midnights JEWEL KNOWLES MD January 13, 2019 07:57
[2019-01-13 10:00] VITALS: BP 111/46
[2019-01-13] MEDS ORDERED: MAGNESIUM HYDROXIDE 2,400 MG/30 ML ORAL.SUSP. PO PRN (10:15)
[2019-01-13] MEDS ORDERED: HYDROcodone/APAP 5/325MG 1 TAB TABLET PO PRN (10:15)
[2019-01-13] MEDS ORDERED: ACETAMINOPHEN 325 MG TABLET. PO PRN (10:15)
[2019-01-13] MEDS ORDERED: METOPROLOL SUCC 24HR ER 25 MG TAB.ER.24H. PO SCH (10:15)
[2019-01-13] MEDS ORDERED: POLYETHYLENE GLYCOL 3350 17 GM PACKET. PO PRN (10:21)
--- NOTE | 2019-01-13 10:32 | PDOC ---
Provider Note Provider Note [id number] acute resp fail ae of copd acute chf see orders RAJINDER DURAN MD January 13, 2019 10:32
--- NOTE | 2019-01-13 10:56 | EKG ---
[facility] [address] [place] [address] Test Date: 2019-01-13 Test Time: 05:22:42 Pat Name: DARYL WEBSTER Department: Room: 646 1 Gender: M [employer] Wrapping Machine Operator: : [id number] Requested By: LLOYD ADAMS Order Number: [id number] Reading MD: Yogesh Mckeon Measurements Intervals [place] Rate: 76 P: [place]: QRS: -59 QRSD: 194 T: 65 QT: 462 QTc: 525 Interpretive Statements ATRIAL FIBRILLATION WITH DEMAND VENTRICULAR PACING Electronically Signed On 02-01-2019 12:46:51 CDT by Yogesh Mckeon
[2019-01-13] MEDS ORDERED: SENNOSIDES 8.6 MG TABLET PO PRN (11:00)
--- NOTE | 2019-01-13 11:53 | CONS ---
DATE OF CONSULTATION: 01/13/2019 I was asked to see this 81-year-old gentleman for acute exacerbation of COPD. HISTORY OF PRESENT ILLNESS: All of the information was obtained from chart, nursing staff, his daughter. He has dementia and he can answer some of the questions. He is a detention resident. He has CHF and COPD. He reportedly, he has had increased shortness of breath, cough and wheezing for the past two days. He was brought to the Emergency Room. He was using accessory muscle use bronchodilator and steroid was given. He is on oxygen 3 liters per minute via nasal cannula and appears comfortable. He has wheezing. He has cough. He has some sputum production. No fever and chills reported. He denies chest pain. PAST MEDICAL HISTORY: CHF, atrial fibrillation, COPD, arthritis, gastroesophageal reflux disease, hypertension, TIA and dementia. ALLERGIES: PENICILLIN. MEDICATIONS: Currently, he is on Lasix, Norvasc, aspirin, olanzapine, doxycycline, Pepcid, Pulmicort, Solu-Medrol 40 mg IV every 8 hours, DuoNeb, Toprol-XL. SOCIAL HISTORY: Significant history of smoking, stopped smoking 20 years ago. FAMILY HISTORY: Hypertension. REVIEW OF SYSTEMS: As mentioned as above. Per daughter, he is bedridden. Other systems are otherwise negative. PHYSICAL EXAMINATION: GENERAL: This is an overweight gentleman. VITAL SIGNS: His O2 saturation on 3 liters of oxygen is 98%, respiratory rate 18, heart rate 77, blood pressure 121/65, temperature 97.5. HEENT: Normocephalic, atraumatic. Pupils equal, round, reactive to light. He has shallow oropharynx, poor dentition. Nose is clear. NECK: There is no lymphadenopathy or thyromegaly. CARDIOVASCULAR: Irregularly irregular rhythm. CHEST: Inspection is normal. LUNGS: There are bibasilar crackles, end expiratory wheezing, dullness at the bases. ABDOMEN: Soft and obese. Bowel sounds are good. There is no mass. EXTREMITIES: There are chronic changes. Trace edema. LYMPHATICS: There is no lymphadenopathy. SKIN: Chronic changes. NEUROLOGIC: Alert. LABORATORY DATA: I reviewed the following lab data. Chest x-ray does not show infiltrate. WBC 6.7, hemoglobin 13.9, platelet 186. Sodium 141, potassium 3.9, chloride 106, CO2 23, BUN 26, creatinine 1.4. BNP 2648. Troponin 0.042. Lactic acid 2. IMPRESSION: 1. Acute respiratory failure, multifactorial in etiology including acute exacerbation of chronic obstructive pulmonary disease, acute diastolic/systolic congestive heart failure, acute bronchitis versus others. 2. Acute exacerbation of chronic obstructive pulmonary disease. 3. Acute diastolic/systolic congestive heart failure. 4. Dementia. 5. Hypertension. 6. Gastroesophageal reflux disease. 7. Atrial fibrillation. PLAN AND RECOMMENDATIONS: 1. Titrate FiO2 to keep O2 saturation 92%. 2. Continue bronchodilator. 3. Continue Solu-Medrol 40 mg IV every 8 hours. 4. Doxycycline. 5. Keep intake less than output, Lasix, monitor potassium and creatinine. 6. Elevate head of bed. 7. Monitor respiratory status very closely. 8. The findings and recommendations were discussed with the patient's daughter and RN. Thank you very much for allowing me to participate in care of this very nice gentleman. RAJINDER DURAN M.D. DR: GREG/jayme JOB#: [id number] / [id number] MON
[2019-01-13] MEDS: IPRATRPIUM/ALBUTEROL 0.5/2.5MG 3 ML NEBU. NEB SCH ×3 (12:27→19:55)
[2019-01-13] MEDS ORDERED: hydrALAZINE 25 MG TABLET PO SCH (14:00)
[2019-01-13] MEDS: hydrALAZINE 25 MG TABLET PO SCH ×2 (14:30→22:04)
[2019-01-13] MEDS: methylPREDNISolone SOD SUCC PF 40 MG/ML VIAL. IV SCH ×2 (14:30→22:03)
[2019-01-13] MEDS: OLANZapine 2.5 MG TABLET PO SCH (14:30)
[2019-01-13 15:00] VITALS: BP 135/75
[2019-01-13 19:27] VITALS: BP 141/67
[2019-01-13] MEDS: BUDESONIDE 0.5 MG/2 ML NEBU. NEB SCH (19:55)
[2019-01-13] MEDS: NYSTATIN TOPICAL POWDER 15GM BOTTLE. TP SCH (21:00)
[2019-01-13] MEDS: HALOPERIDOL 2 MG/ML ORAL.CONC. PO SCH (21:00)
[2019-01-13] MEDS: DOXYCYCLINE HYCLATE 100 MG TABLET PO SCH (22:04)
[2019-01-13] MEDS: METOPROLOL TART IMMED RELEASE 50 MG TABLET. PO SCH (22:04)
[2019-01-13] MEDS: FAMOTIDINE 20 MG TABLET. PO SCH (22:04)
[2019-01-13 23:42] VITALS: BP 125/64
[2019-01-14 03:29] VITALS: BP 146/93
--- NOTE | 2019-01-14 05:29 | NUR ---
Patient is very confused and forgetful, repeatedly tried to get up from bed. Forgets that they used the toilet already and believes he needs to go again. Currently in recliner with chair alarm at nursing station. Patient did not sleep throughout night.
[2019-01-14] MEDS: methylPREDNISolone SOD SUCC PF 40 MG/ML VIAL. IV SCH ×2 (06:41→14:00)
[2019-01-14 07:00] VITALS: BP 145/84
[2019-01-14 07:17] LABS: CALCIUM 9.3 mg/dL (8.5-10.1); CREATININE 1.4 mg/dL (0.7-1.3); GFR 58.7; PHOSPHORUS 3.2 mg/dL (2.6-4.7); POTASSIUM 5.3 mmol/L (3.5-5.1)
[2019-01-14] MEDS: IPRATRPIUM/ALBUTEROL 0.5/2.5MG 3 ML NEBU. NEB SCH ×4 (07:34→20:06)
[2019-01-14] MEDS: BUDESONIDE 0.5 MG/2 ML NEBU. NEB SCH ×2 (07:34→20:06)
[2019-01-14] MEDS: ASPIRIN ENTERIC COATED 81 MG TABLET.DR. PO SCH (08:24)
[2019-01-14] MEDS: FUROSEMIDE 20 MG TABLET PO SCH (08:25)
[2019-01-14] MEDS: hydrALAZINE 25 MG TABLET PO SCH ×3 (08:25→21:00)
[2019-01-14] MEDS: amLODIPine BESYLATE 10 MG TABLET PO SCH (08:25)
[2019-01-14] MEDS: ALLOPURINOL 100 MG TABLET. PO SCH (08:25)
[2019-01-14] MEDS: OLANZapine 2.5 MG TABLET PO SCH (08:26)
[2019-01-14] MEDS: METOPROLOL TART IMMED RELEASE 50 MG TABLET. PO SCH ×2 (08:26→21:46)
[2019-01-14] MEDS: HALOPERIDOL 2 MG/ML ORAL.CONC. PO SCH ×2 (08:26→21:45)
[2019-01-14] MEDS: DOXYCYCLINE HYCLATE 100 MG TABLET PO SCH ×2 (08:26→21:45)
[2019-01-14] MEDS: NYSTATIN TOPICAL POWDER 15GM BOTTLE. TP SCH ×2 (08:27→21:45)
--- NOTE | 2019-01-14 08:56 | PDOC ---
PULMONARY PROGRESS NOTES Subjective PT NOT MORE SOA Vitals Vital Signs Date Time Temp Pulse Resp B/P (MAP) Pulse Ox O2 Delivery O2 Flow Rate FiO2 01/14/19 08:26 71 145/84 01/14/19 07:35 99 Nasal Cannula 3.0 01/14/19 07:00 98.0 18 98.0 ROS: No Nausea, No Chest Pain, No Abdominal Pain, No Increase Cough General: Alert, No acute distress Lungs: Crackles Cardiovascular: S1, S2 Abdomen: Soft Extremities: No Edema Labs Laboratory Tests Test 01/13/19 05:28 01/13/19 05:30 01/13/19 06:20 01/13/19 12:30 White Blood Count 6.7 x10^3/uL (4.0-11.0) Red Blood Count 4.87 x10^6/uL (4.30-5.70) Hemoglobin 13.9 g/dL (13.0-17.5) Hematocrit 43.5 % (39.0-53.0) Mean Corpuscular Volume 89 fL (79-100) Mean Corpuscular Hemoglobin 29 pg (25-35) Mean Corpuscular Hemoglobin Concent 32 g/dL (31-37) Red Cell Distribution Width 22.3 % (11.5-14.5) Platelet Count 186 x10^3/uL (140-400) Neutrophils (%) (Auto) 61 % (31-73) Lymphocytes (%) (Auto) 14 % (24-48) Monocytes (%) (Auto) 11 % (0-9) Eosinophils (%) (Auto) 14 % (0-3) Basophils (%) (Auto) 0 % (0-3) Neutrophils # (Auto) 4.0 x10^3uL (1.8-7.7) Lymphocytes # (Auto) 0.9 x10^3/uL (1.0-4.8) Monocytes # (Auto) 0.7 x10^3/uL (0.0-1.1) Eosinophils # (Auto) 0.9 x10^3/uL (0.0-0.7) Basophils # (Auto) 0.0 x10^3/uL (0.0-0.2) Platelet Estimate Adequate (ADEQUATE) Anisocytosis Mod Influenza Type A Antigen Negative (NEGATIVE) Influenza Type B Antigen Negative (NEGATIVE) O2 Saturation 98 % (92-99) Arterial Blood pH 7.36 (7.35-7.45) Arterial Blood pCO2 at Patient Temp 42 mmHg (35-46) Arterial Blood pO2 at Patient Temp 110 mmHg (65-108) Arterial Blood HCO3 23 mmol/L (21-28) Arterial Blood Base Excess -2 mmol/L (-3-3) FiO2 Prothrombin Time 13.8 SEC (11.7-14.0) Prothromb Time International Ratio 1.1 (0.8-1.1) Activated Partial Thromboplast Time 35 SEC (24-38) Sodium Level 141 mmol/L (136-145) Potassium Level 3.9 mmol/L (3.5-5.1) Chloride Level 106 mmol/L (98-107) Carbon Dioxide Level 23 mmol/L (21-32) Anion Gap 12 (6-14) Blood Urea Nitrogen 26 mg/dL (8-26) Creatinine 1.4 mg/dL (0.7-1.3) Estimated GFR (Cockcroft-Gault) 58.7 BUN/Creatinine Ratio 19 (6-20) Glucose Level 118 mg/dL (70-99) Lactic Acid Level 2.0 mmol/L (0.4-2.0) Calcium Level 8.6 mg/dL (8.5-10.1) Magnesium Level 2.1 mg/dL (1.8-2.4) Total Bilirubin 0.5 mg/dL (0.2-1.0) Aspartate Amino Transf (AST/SGOT) 13 U/L (15-37) Alanine Aminotransferase (ALT/SGPT) 16 U/L (16-63) Alkaline Phosphatase 117 U/L (46-116) Creatine Kinase 68 U/L (39-308) Creatine Kinase MB (Mass) 1.2 ng/mL (0.0-3.6) Creatine Kinase MB Relative Index % (0-4) Troponin I Quantitative 0.042 ng/mL (0.000-0.055) 0.029 ng/mL (0.000-0.055) VS-Ups-Z-Type Natriuretic Peptide 2648 pg/mL (0-449) Total Protein 6.7 g/dL (6.4-8.2) Albumin 2.9 g/dL (3.4-5.0) Albumin/Globulin Ratio 0.8 (1.0-1.7) Test 01/13/19 18:05 01/14/19 06:23 Troponin I Quantitative 0.024 ng/mL (0.000-0.055) Sodium Level 138 mmol/L (136-145) Potassium Level 5.3 mmol/L (3.5-5.1) Chloride Level 105 mmol/L (98-107) Carbon Dioxide Level 22 mmol/L (21-32) Anion Gap 11 (6-14) Blood Urea Nitrogen 33 mg/dL (8-26) Creatinine 1.4 mg/dL (0.7-1.3) Estimated GFR (Cockcroft-Gault) 58.7 Glucose Level 135 mg/dL (70-99) Calcium Level 9.3 mg/dL (8.5-10.1) Phosphorus Level 3.2 mg/dL (2.6-4.7) Albumin 3.0 g/dL (3.4-5.0) Laboratory Tests Test 01/13/19 12:30 01/13/19 18:05 01/14/19 06:23 Troponin I Quantitative 0.029 ng/mL (0.000-0.055) 0.024 ng/mL (0.000-0.055) Sodium Level 138 mmol/L (136-145) Potassium Level 5.3 mmol/L (3.5-5.1) Chloride Level 105 mmol/L (98-107) Carbon Dioxide Level 22 mmol/L (21-32) Anion Gap 11 (6-14) Blood Urea Nitrogen 33 mg/dL (8-26) Creatinine 1.4 mg/dL (0.7-1.3) Estimated GFR (Cockcroft-Gault) 58.7 Glucose Level 135 mg/dL (70-99) Calcium Level 9.3 mg/dL (8.5-10.1) Phosphorus Level 3.2 mg/dL (2.6-4.7) Albumin 3.0 g/dL (3.4-5.0) Medications Active Scripts Medications Dose Route/Sig Max Daily Dose Days Date Category Haloperidol 2 Mg Tablet 1 Tab PO BID 10/22/18 Rx Olanzapine 2.5 Mg Tablet 2.5 Mg PO DAILY MDD 09 2610/22/18 Rx Amlodipine Besylate 10 Mg Tablet 10 Mg PO DAILY MDD 09 2610/22/18 Rx Hydralazine Hcl 25 Mg Tablet 25 Mg PO TID MDD 1 30 10/22/18 Rx Nystatin 15 Gm Powder 1 Alberto TP BID 10/17/18 Reported Milk Of Magnesia (Magnesium Hydroxide) 400 Mg/5 Ml Oral.susp 400 Mg PO PRN DAILY PRN 10/17/18 Reported Mag-Oxide (Magnesium Oxide) 400 Mg Tablet 1 Tab PO BID 10/17/18 Reported Losartan Potassium 100 Mg Tablet 100 Mg PO DAILY 10/17/18 Reported Lasix (Furosemide) 20 Mg Tablet 1 Tab PO DAILY 10/17/18 Reported Potassium Chloride 20 Meq Tablet.er 20 Meq PO DAILY 10/15/18 Reported Colcrys (Colchicine) 0.6 Mg Tablet 0.6 Mg PO DAILY 30 01/03/18 Rx Aspirin Ec (Aspirin) 81 Mg Tablet.dr 81 Mg PO DAILYWBKFT 30 01/03/18 Rx Duoneb 0.5-3(2.5) Mg/3 Ml (Albuterol/Ipratropium) 3 Ml Ampul.neb 3 Ml NEB RTQID 30 01/03/18 Rx Metoprolol Tartrate 50 Mg Tablet 2 Tab PO BID 30 01/03/18 Rx Miralax (Polyethylene Glycol 3350) 17 Gm Powd.pack 1 Packet PO PRN DAILY PRN 03/09/16 Reported Lortab 5-325 mg Tablet (Hydrocodone/Acetaminophen) 1 Each Tablet 1 Tab PO PRN Q4HRS PRN 03/09/16 Reported Tylenol (Acetaminophen) 325 Mg Tablet 1 Tab PO PRN Q6HRS PRN 03/09/16 Reported Famotidine 20 Mg Tablet 20 Mg PO HS 03/05/16 Reported Impression . IMPRESSION: 1. Acute respiratory failure, multifactorial 2. Acute exacerbation of chronic obstructive pulmonary disease. 3. Acute diastolic/systolic congestive heart failure. 4. Dementia. 5. Hypertension. 6. Gastroesophageal reflux disease. 7. Atrial fibrillation. Plan . pt feels better will continue the same 1. Titrate FiO2 to keep O2 saturation 92%. 2. Continue bronchodilator. 3. Continue Solu-Medrol 40 mg IV every 8 hours. 4. Doxycycline. 5. monitor I/O 6. Elevate head of bed. ROSE GIRALDO MD January 14, 2019 08:56
--- NOTE | 2019-01-14 09:34 | NUR ---
IP: Pt has a hx of + mrsa screen on 10/15/18. Pt to be in contact precautions until there are 2 negative screens 7 days apart.
[2019-01-14 11:00] VITALS: BP 128/70
--- NOTE | 2019-01-14 11:22 | PDOC ---
PROGRESS NOTES Chief Complaint Chief Complaint 1. Acute respiratory failure, multifactorial in etiology including acute exacerbation of chronic obstructive pulmonary disease, acute diastolic/systolic congestive heart failure, acute bronchitis versus others. 2. Acute exacerbation of chronic obstructive pulmonary disease. 3. Acute diastolic/systolic congestive heart failure. 4. Dementia. 5. Hypertension. 6. Gastroesophageal reflux disease. 7. Atrial fibrillation, chronic rate controlled 8. Obesity BMI 37.1 History of Present Illness History of Present Illness Out of ICU just after overnight stay there She is on Solu-Medrol 40 IV every 8 and Doxy 100 by mouth twice a day by pulmo She has a lot of comorbidities namely dementia, diastolic heart failure, SNU resident, COPD, chronic A. fib She is flu negative Potassium mildly high 5.3 not on any supplements Creatinine 1.4 better PLAN: Continue steroids, may be sliding-scale insulin since on steroids Back to SNU on discharge DC Lavinia if any Kayexalate 15 g 1 PT OT today Might be able to go back to SNU tomorrow Avoid nephrotoxins BMP Panel again tomorrow Vitals Vitals Vital Signs Date Time Temp Pulse Resp B/P (MAP) Pulse Ox O2 Delivery O2 Flow Rate FiO2 01/14/19 08:26 71 145/84 01/14/19 08:00 Room Air 01/14/19 07:35 99 3.0 01/14/19 07:00 98.0 18 98.0 Physical Exam General: Alert, Cooperative, moderate distress Lungs: Clear Abdomen: Normal bowel sounds, Soft, No tenderness, No hepatosplenomegaly, No masses Extremities: No clubbing, No cyanosis, Normal pulses, No tenderness/swelling, Other (1+ edema) Skin: Other (Stasis dermatitis) Labs LABS Laboratory Tests Test 01/13/19 12:30 01/13/19 18:05 01/14/19 06:23 Troponin I Quantitative 0.029 ng/mL (0.000-0.055) 0.024 ng/mL (0.000-0.055) Sodium Level 138 mmol/L (136-145) Potassium Level 5.3 mmol/L (3.5-5.1) Chloride Level 105 mmol/L (98-107) Carbon Dioxide Level 22 mmol/L (21-32) Anion Gap 11 (6-14) Blood Urea Nitrogen 33 mg/dL (8-26) Creatinine 1.4 mg/dL (0.7-1.3) Estimated GFR (Cockcroft-Gault) 58.7 Glucose Level 135 mg/dL (70-99) Calcium Level 9.3 mg/dL (8.5-10.1) Phosphorus Level 3.2 mg/dL (2.6-4.7) Albumin 3.0 g/dL (3.4-5.0) Review of Systems Review of Systems A 14 point ROS was completed with the following noted as positive: Other systems reviewed and negative. \CONSTITUTIONAL: No fever or chills EYES: No recent changes SKIN: No rash or itching CARDIOVASCULAR: No chest pain, syncope, palpitations, or edema RESPIRATORY: No SOB or cough GASTROINTESTINAL: No nausea, vomiting or abdominal pain NEUROLOGICAL: No headaches or weakness ENDOCRINE: No cold or heat intolerance GENITOURINARY: No urgency or frequency of urination MUSCULOSKELETAL: No back pain or joint pain LYMPHATICS: No enlarged lymph nodes PSYCHIATRIC: No anxiety or depression Assessment and Plan Assessmemt and Plan Problems Medical Problems: (1) Acute respiratory distress Status: Acute (2) CHF (congestive heart failure) Status: Acute (3) Chronic renal insufficiency Status: Acute (4) COPD exacerbation Status: Acute (5) Shortness of breath Status: Acute Comment Review of Relevant I have reviewed the following items patrick (where applicable) has been applied. Labs Laboratory Tests Test 01/13/19 05:28 01/13/19 05:30 01/13/19 06:20 01/13/19 12:30 White Blood Count 6.7 x10^3/uL (4.0-11.0) Red Blood Count 4.87 x10^6/uL (4.30-5.70) Hemoglobin 13.9 g/dL (13.0-17.5) Hematocrit 43.5 % (39.0-53.0) Mean Corpuscular Volume 89 fL (79-100) Mean Corpuscular Hemoglobin 29 pg (25-35) Mean Corpuscular Hemoglobin Concent 32 g/dL (31-37) Red Cell Distribution Width 22.3 % (11.5-14.5) Platelet Count 186 x10^3/uL (140-400) Neutrophils (%) (Auto) 61 % (31-73) Lymphocytes (%) (Auto) 14 % (24-48) Monocytes (%) (Auto) 11 % (0-9) Eosinophils (%) (Auto) 14 % (0-3) Basophils (%) (Auto) 0 % (0-3) Neutrophils # (Auto) 4.0 x10^3uL (1.8-7.7) Lymphocytes # (Auto) 0.9 x10^3/uL (1.0-4.8) Monocytes # (Auto) 0.7 x10^3/uL (0.0-1.1) Eosinophils # (Auto) 0.9 x10^3/uL (0.0-0.7) Basophils # (Auto) 0.0 x10^3/uL (0.0-0.2) Platelet Estimate Adequate (ADEQUATE) Anisocytosis Mod Influenza Type A Antigen Negative (NEGATIVE) Influenza Type B Antigen Negative (NEGATIVE) O2 Saturation 98 % (92-99) Arterial Blood pH 7.36 (7.35-7.45) Arterial Blood pCO2 at Patient Temp 42 mmHg (35-46) Arterial Blood pO2 at Patient Temp 110 mmHg (65-108) Arterial Blood HCO3 23 mmol/L (21-28) Arterial Blood Base Excess -2 mmol/L (-3-3) FiO2 Prothrombin Time 13.8 SEC (11.7-14.0) Prothromb Time International Ratio 1.1 (0.8-1.1) Activated Partial Thromboplast Time 35 SEC (24-38) Sodium Level 141 mmol/L (136-145) Potassium Level 3.9 mmol/L (3.5-5.1) Chloride Level 106 mmol/L (98-107) Carbon Dioxide Level 23 mmol/L (21-32) Anion Gap 12 (6-14) Blood Urea Nitrogen 26 mg/dL (8-26) Creatinine 1.4 mg/dL (0.7-1.3) Estimated GFR (Cockcroft-Gault) 58.7 BUN/Creatinine Ratio 19 (6-20) Glucose Level 118 mg/dL (70-99) Lactic Acid Level 2.0 mmol/L (0.4-2.0) Calcium Level 8.6 mg/dL (8.5-10.1) Magnesium Level 2.1 mg/dL (1.8-2.4) Total Bilirubin 0.5 mg/dL (0.2-1.0) Aspartate Amino Transf (AST/SGOT) 13 U/L (15-37) Alanine Aminotransferase (ALT/SGPT) 16 U/L (16-63) Alkaline Phosphatase 117 U/L (46-116) Creatine Kinase 68 U/L (39-308) Creatine Kinase MB (Mass) 1.2 ng/mL (0.0-3.6) Creatine Kinase MB Relative Index % (0-4) Troponin I Quantitative 0.042 ng/mL (0.000-0.055) 0.029 ng/mL (0.000-0.055) OB-Hzh-B-Type Natriuretic Peptide 2648 pg/mL (0-449) Total Protein 6.7 g/dL (6.4-8.2) Albumin 2.9 g/dL (3.4-5.0) Albumin/Globulin Ratio 0.8 (1.0-1.7) Test 01/13/19 18:05 01/14/19 06:23 Troponin I Quantitative 0.024 ng/mL (0.000-0.055) Sodium Level 138 mmol/L (136-145) Potassium Level 5.3 mmol/L (3.5-5.1) Chloride Level 105 mmol/L (98-107) Carbon Dioxide Level 22 mmol/L (21-32) Anion Gap 11 (6-14) Blood Urea Nitrogen 33 mg/dL (8-26) Creatinine 1.4 mg/dL (0.7-1.3) Estimated GFR (Cockcroft-Gault) 58.7 Glucose Level 135 mg/dL (70-99) Calcium Level 9.3 mg/dL (8.5-10.1) Phosphorus Level 3.2 mg/dL (2.6-4.7) Albumin 3.0 g/dL (3.4-5.0) Laboratory Tests Test 01/13/19 12:30 01/13/19 18:05 01/14/19 06:23 Troponin I Quantitative 0.029 ng/mL (0.000-0.055) 0.024 ng/mL (0.000-0.055) Sodium Level 138 mmol/L (136-145) Potassium Level 5.3 mmol/L (3.5-5.1) Chloride Level 105 mmol/L (98-107) Carbon Dioxide Level 22 mmol/L (21-32) Anion Gap 11 (6-14) Blood Urea Nitrogen 33 mg/dL (8-26) Creatinine 1.4 mg/dL (0.7-1.3) Estimated GFR (Cockcroft-Gault) 58.7 Glucose Level 135 mg/dL (70-99) Calcium Level 9.3 mg/dL (8.5-10.1) Phosphorus Level 3.2 mg/dL (2.6-4.7) Albumin 3.0 g/dL (3.4-5.0) Microbiology 01/13/19 Blood Culture - Preliminary, Resulted NO GROWTH AFTER 1 DAY Medications Current Medications Albuterol/ Ipratropium (Duoneb) 3 ml 1X ONCE NEB ; Start 01/13/19 at 05:45; Stop 01/13/19 at 05:45; Status DC Dexamethasone Sodium Phosphate (Decadron) 10 mg 1X ONCE IV Last administered on 01/13/19at 06:04; Start 01/13/19 at 05:45; Stop 01/13/19 at 05:46; Status DC Aspirin (Jorge Luis Aspirin) 325 mg 1X ONCE PO Last administered on 01/13/19at 06:02; Start 01/13/19 at 05:45; Stop 01/13/19 at 05:46; Status DC Albuterol Sulfate (Ventolin Neb Soln) 10 mg 1X ONCE CONT NEB Last administered on 01/13/19at 06:01; Start 01/13/19 at 06:00; Stop 01/13/19 at 06:01; Status DC Doxycycline Hyclate 100 mg/ Dextrose 100 ml @ 50 mls/hr 1X ONCE IV Last administered on 01/13/19at 07:23; Start 01/13/19 at 07:15; Stop 01/13/19 at 09:14; Status DC Acetaminophen (Tylenol) 325 mg PRN Q6HRS PRN PO FEVER; Start 01/13/19 at 10:15 Amlodipine Besylate (Norvasc) 10 mg DAILY PO Last administered on 01/14/19 08:25; Start 01/14/19 at 09:00 Aspirin (Ecotrin) 81 mg DAILYWBKFT PO Last administered on 01/14/19at 08:24; Start 01/14/19 at 08:00 Famotidine (Pepcid) 20 mg HS PO Last administered on 01/13/19at 22:04; Start 01/13/19 at 21:00 Furosemide (Lasix) 20 mg DAILY PO Last administered on 01/14/19 08:25; Start 01/14/19 at 09:00 Acetaminophen/ Hydrocodone Bitart (Lortab 5/325) 1 tab PRN Q4HRS PRN PO PAIN MILD Last administered on 01/13/19 18:03; Start 01/13/19 at 10:15 Albuterol/ Ipratropium (Duoneb) 3 ml RTQID NEB Last administered on 01/14/19 07:34; Start 01/13/19 at 12:00 Magnesium Hydroxide (Milk Of Magnesia) 400 mg PRN DAILY PRN PO INDIGESTION; Start 01/13/19 at 10:15 Nystatin (Nystop) 1 alberto BID TP Last administered on 01/14/19 08:27; Start 01/13/19 at 21:00 Haloperidol Lactate (HALDOL 2mg ORAL CONC) 2 mg BID PO Last administered on 01/14/19 08:26; Start 01/13/19 at 21:00 Hydralazine HCl (Apresoline) 25 mg TID PO Last administered on 01/14/19 08:25; Start 01/13/19 at 14:00 Olanzapine (ZyPREXA) 2.5 mg DAILY PO Last administered on 01/14/19 08:26; Start 01/13/19 at 10:30 Polyethylene Glycol (miraLAX PACKET) 17 gm PRN DAILY PRN PO CONSTIPATION 1ST CHOICE; Start 01/13/19 at 10:21 Budesonide (Pulmicort) 0.5 mg RTBID NEB Last administered on 01/14/19 07:34; Start 01/13/19 at 20:00 Doxycycline Hyclate (Vibra-Tab) 100 mg BID PO Last administered on 01/14/19 08:26; Start 01/13/19 at 21:00 Methylprednisolone Sodium Succinate (SOLU-Medrol 40MG VIAL) 40 mg Q8HRS IV Last administered on 01/14/19 06:41; Start 01/13/19 at 14:00 Metoprolol Succinate (Toprol Xl) 25 mg DAILY PO ; Start 01/13/19 at 10:15; Stop 01/13/19 at 10:59; Status DC Allopurinol (Zyloprim) 100 mg DAILY PO Last administered on 01/14/19at 08:25; Start 01/14/19 at 09:00 Hydralazine HCl (Apresoline) 25 mg TID PO ; Start 01/13/19 at 14:00; Status UNV Metoprolol Tartrate (Lopressor) 50 mg BID PO Last administered on 01/14/19at 08:26; Start 01/13/19 at 21:00 Sennosides (Senna) 8.6 mg PRN BID PRN PO CONSTIPATION 2ND CHOICE; Start 01/13/19 at 11:00 Active Scripts Active Haloperidol 2 Mg Tablet 1 Tab PO BID Olanzapine 2.5 Mg Tablet 2.5 Mg PO DAILY MDD 1 30 Days Amlodipine Besylate 10 Mg Tablet 10 Mg PO DAILY MDD 1 30 Days Hydralazine Hcl 25 Mg Tablet 25 Mg PO TID MDD 1 30 Days Colcrys (Colchicine) 0.6 Mg Tablet 0.6 Mg PO DAILY 30 Days Aspirin Ec (Aspirin) 81 Mg Tablet.dr 81 Mg PO DAILYWBKFT 30 Days Duoneb 0.5-3(2.5) Mg/3 Ml (Albuterol/Ipratropium) 3 Ml Ampul.neb 3 Ml NEB RTQID 30 Days Metoprolol Tartrate 50 Mg Tablet 2 Tab PO BID 30 Days Reported Nystatin 15 Gm Powder 1 Alberto TP BID Milk Of Magnesia (Magnesium Hydroxide) 400 Mg/5 Ml Oral.susp 400 Mg PO PRN DAILY PRN Mag-Oxide (Magnesium Oxide) 400 Mg Tablet 1 Tab PO BID Losartan Potassium 100 Mg Tablet 100 Mg PO DAILY Lasix (Furosemide) 20 Mg Tablet 1 Tab PO DAILY Potassium Chloride 20 Meq Tablet.er 20 Meq PO DAILY Miralax (Polyethylene Glycol 3350) 17 Gm Powd.pack 1 Packet PO PRN DAILY PRN Lortab 5-325 mg Tablet (Hydrocodone/Acetaminophen) 1 Each Tablet 1 Tab PO PRN Q4HRS PRN Tylenol (Acetaminophen) 325 Mg Tablet 1 Tab PO PRN Q6HRS PRN Famotidine 20 Mg Tablet 20 Mg PO HS Vitals/I & O Vital Sign - Last 24 Hours 01/13/19 01/13/19 01/13/19 01/13/19 12:28 14:30 15:00 15:38 Temp 98.1 98.1 Pulse 52 62 Resp 18 B/P (MAP) 111/46 135/75 (95) Pulse Ox 100 97 O2 Delivery Nasal Cannula Nasal Cannula Nasal Cannula O2 Flow Rate 3.0 3.0 2.0 01/13/19 01/13/19 01/13/19 01/13/19 18:03 19:03 19:27 19:55 Temp 98.2 98.2 Pulse 69 Resp 18 20 B/P (MAP) 141/67 (91) Pulse Ox 97 100 100 O2 Delivery Room Air Nasal Cannula Nasal Cannula Nasal Cannula O2 Flow Rate 2.0 3.0 3.0 3.0 01/13/19 01/13/19 01/13/19 01/13/19 20:00 22:04 22:04 23:42 Temp 98.0 98.0 Pulse 69 69 70 Resp 22 B/P (MAP) 141/67 141/67 125/64 (84) Pulse Ox 99 O2 Delivery Nasal Cannula Room Air O2 Flow Rate 3.0 01/14/19 01/14/19 01/14/19 01/14/19 03:29 07:00 07:35 08:00 Temp 97.4 98.0 97.4 98.0 Pulse 69 71 Resp 20 18 B/P (MAP) 146/93 (110) 145/84 (104) Pulse Ox 97 98 99 O2 Delivery Nasal Cannula Nasal Cannula Nasal Cannula Room Air O2 Flow Rate 3.0 3.0 3.0 01/14/19 01/14/19 01/14/19 08:25 08:25 08:26 Pulse 71 71 71 B/P (MAP) 145/84 145/84 145/84 Intake and Output 01/13/19 01/13/19 01/14/19 14:59 22:59 06:59 Intake Total 100 ml 240 ml 350 ml Output Total 1050 ml Balance 100 ml 240 ml -700 ml RAJIV DIAMOND MD January 14, 2019 11:22
[2019-01-14] MEDS ORDERED: SODIUM POLYSTYRENE SULFONATE 15 GM/60 ML ORAL.SUSP. PO ONE (11:30)
[2019-01-14 15:00] VITALS: BP 142/71
[2019-01-14 19:00] VITALS: BP 104/47
[2019-01-14] MEDS: predniSONE 20 MG TABLET PO SCH (21:44)
[2019-01-14] MEDS: FAMOTIDINE 20 MG TABLET. PO SCH (21:45)
[2019-01-14] MEDS: LACTOBACILLUS RHAMNOSUS GG 1 CAPSULE. PO SCH (21:45)
[2019-01-14 23:00] VITALS: BP 136/74
[2019-01-15 03:04] VITALS: BP 140/77
[2019-01-15 06:22] LABS: CALCIUM 8.7 mg/dL (8.5-10.1); CREATININE 1.5 mg/dL (0.7-1.3); GFR 54.2; PHOSPHORUS 3.6 mg/dL (2.6-4.7); POTASSIUM 4.4 mmol/L (3.5-5.1)
[2019-01-15 07:00] VITALS: BP 144/74
[2019-01-15] MEDS: IPRATRPIUM/ALBUTEROL 0.5/2.5MG 3 ML NEBU. NEB SCH ×2 (09:01→11:54)
[2019-01-15] MEDS: BUDESONIDE 0.5 MG/2 ML NEBU. NEB SCH (09:01)
--- NOTE | 2019-01-15 09:07 | PDOC ---
PULMONARY PROGRESS NOTES Subjective CONFUSED NOT SOA Vitals Vital Signs Date Time Temp Pulse Resp B/P (MAP) Pulse Ox O2 Delivery O2 Flow Rate FiO2 01/15/19 03:04 97.7 68 20 140/77 (98) 94 Room Air 97.7 01/14/19 11:00 3.0 ROS: No Nausea, No Chest Pain, No Abdominal Pain, No Increase Cough General: Alert, No acute distress Lungs: Crackles Cardiovascular: S1, S2 Abdomen: Soft Extremities: No Edema Labs Laboratory Tests Test 01/13/19 12:30 01/13/19 18:05 01/14/19 06:23 01/15/19 03:50 Troponin I Quantitative 0.029 ng/mL (0.000-0.055) 0.024 ng/mL (0.000-0.055) Sodium Level 138 mmol/L (136-145) 141 mmol/L (136-145) Potassium Level 5.3 mmol/L (3.5-5.1) 4.4 mmol/L (3.5-5.1) Chloride Level 105 mmol/L (98-107) 105 mmol/L (98-107) Carbon Dioxide Level 22 mmol/L (21-32) 22 mmol/L (21-32) Anion Gap 11 (6-14) 14 (6-14) Blood Urea Nitrogen 33 mg/dL (8-26) 39 mg/dL (8-26) Creatinine 1.4 mg/dL (0.7-1.3) 1.5 mg/dL (0.7-1.3) Estimated GFR (Cockcroft-Gault) 58.7 54.2 Glucose Level 135 mg/dL (70-99) 122 mg/dL (70-99) Calcium Level 9.3 mg/dL (8.5-10.1) 8.7 mg/dL (8.5-10.1) Phosphorus Level 3.2 mg/dL (2.6-4.7) 3.6 mg/dL (2.6-4.7) Albumin 3.0 g/dL (3.4-5.0) 3.0 g/dL (3.4-5.0) Laboratory Tests Test 01/15/19 03:50 Sodium Level 141 mmol/L (136-145) Potassium Level 4.4 mmol/L (3.5-5.1) Chloride Level 105 mmol/L (98-107) Carbon Dioxide Level 22 mmol/L (21-32) Anion Gap 14 (6-14) Blood Urea Nitrogen 39 mg/dL (8-26) Creatinine 1.5 mg/dL (0.7-1.3) Estimated GFR (Cockcroft-Gault) 54.2 Glucose Level 122 mg/dL (70-99) Calcium Level 8.7 mg/dL (8.5-10.1) Phosphorus Level 3.6 mg/dL (2.6-4.7) Albumin 3.0 g/dL (3.4-5.0) Medications Active Scripts Medications Dose Route/Sig Max Daily Dose Days Date Category Haloperidol 2 Mg Tablet 1 Tab PO BID 10/22/18 Rx Olanzapine 2.5 Mg Tablet 2.5 Mg PO DAILY MDD 1 30 10/22/18 Rx Amlodipine Besylate 10 Mg Tablet 10 Mg PO DAILY MDD 1 30 10/22/18 Rx Hydralazine Hcl 25 Mg Tablet 25 Mg PO TID MDD 1 30 10/22/18 Rx Nystatin 15 Gm Powder 1 Alberto TP BID 10/17/18 Reported Milk Of Magnesia (Magnesium Hydroxide) 400 Mg/5 Ml Oral.susp 400 Mg PO PRN DAILY PRN 10/17/18 Reported Mag-Oxide (Magnesium Oxide) 400 Mg Tablet 1 Tab PO BID 10/17/18 Reported Losartan Potassium 100 Mg Tablet 100 Mg PO DAILY 10/17/18 Reported Lasix (Furosemide) 20 Mg Tablet 1 Tab PO DAILY 10/17/18 Reported Potassium Chloride 20 Meq Tablet.er 20 Meq PO DAILY 10/15/18 Reported Colcrys (Colchicine) 0.6 Mg Tablet 0.6 Mg PO DAILY 30 01/03/18 Rx Aspirin Ec (Aspirin) 81 Mg Tablet.dr 81 Mg PO DAILYWBKFT 01/03/18 Rx Duoneb 0.5-3(2.5) Mg/3 Ml (Albuterol/Ipratropium) 3 Ml Ampul.neb 3 Ml NEB RTQID 30 01/03/18 Rx Metoprolol Tartrate 50 Mg Tablet 2 Tab PO BID 30 01/03/18 Rx Miralax (Polyethylene Glycol 3350) 17 Gm Powd.pack 1 Packet PO PRN DAILY PRN 03/09/16 Reported Lortab 5-325 mg Tablet (Hydrocodone/Acetaminophen) 1 Each Tablet 1 Tab PO PRN Q4HRS PRN 03/09/16 Reported Tylenol (Acetaminophen) 325 Mg Tablet 1 Tab PO PRN Q6HRS PRN 03/09/16 Reported Famotidine 20 Mg Tablet 20 Mg PO HS 03/05/16 Reported Impression . IMPRESSION: 1. Acute respiratory failure, multifactorial 2. Acute exacerbation of chronic obstructive pulmonary disease. 3. Acute diastolic/systolic congestive heart failure. 4. Dementia. 5. Hypertension. 6. Gastroesophageal reflux disease. 7. Atrial fibrillation. Plan . D/C PRED AND ANTIBX FOLLOW UP WITH ME NEEDED D/W ROSE FIGUEROA MD January 15, 2019 09:07
[2019-01-15] MEDS: predniSONE 20 MG TABLET PO SCH (10:22)
[2019-01-15] MEDS: ASPIRIN ENTERIC COATED 81 MG TABLET.DR. PO SCH (10:22)
[2019-01-15] MEDS: ALLOPURINOL 100 MG TABLET. PO SCH (10:22)
[2019-01-15] MEDS: LACTOBACILLUS RHAMNOSUS GG 1 CAPSULE. PO SCH (10:22)
[2019-01-15] MEDS: DOXYCYCLINE HYCLATE 100 MG TABLET PO SCH (10:22)
[2019-01-15] MEDS: METOPROLOL TART IMMED RELEASE 50 MG TABLET. PO SCH (10:23)
[2019-01-15] MEDS: hydrALAZINE 25 MG TABLET PO SCH (10:23)
[2019-01-15] MEDS: FUROSEMIDE 20 MG TABLET PO SCH (10:23)
[2019-01-15] MEDS: HALOPERIDOL 2 MG/ML ORAL.CONC. PO SCH (10:23)
[2019-01-15] MEDS: NYSTATIN TOPICAL POWDER 15GM BOTTLE. TP SCH (10:24)
[2019-01-15] MEDS: OLANZapine 2.5 MG TABLET PO SCH (10:24)
[2019-01-15] MEDS: amLODIPine BESYLATE 10 MG TABLET PO SCH (10:24)
[2019-01-15 11:00] VITALS: BP 141/72
[2019-01-15] MEDS ORDERED: HYDR-2761 PO (11:01)
[2019-01-15] MEDS ORDERED: DOXY100T PO (11:01)
[2019-01-15] MEDS ORDERED: PRED50TA PO (11:05)
[2019-01-15] MEDS ORDERED: PRED20TA PO (11:07)
[2019-01-15] MEDS ORDERED: PRED-220 PO (11:08)
--- NOTE | 2019-01-15 11:09 | SNU/HH DC ---
DISCHARGE ORDERS DISCHARGE INFORMATION: DISCHARGE DATE: January 15, 2019 FINAL DIAGNOSIS Problems Medical Problems: (1) Acute respiratory distress Status: Acute (2) CHF (congestive heart failure) Status: Acute (3) Chronic renal insufficiency Status: Acute (4) COPD exacerbation Status: Acute (5) Shortness of breath Status: Acute CONDITION ON DISCHARGE: Stable CODE STATUS: Code Status: Full [facility]FP: SNF STAY <30 DAYS: Yes POST DISCHARGE ORDERS: ACTIVITY ORDERS: Activity as tolerated WEIGHT BEARING STATUS: As tolerated DIET AFTER DISCHARGE: Cardiac WOUND/INCISION CARE: Change dressing, Reinforce dressing PRN CHECKS AFTER DISCHARGE: CHECKS AFTER DISCHARGE: Check blood press - daily, Weigh Yourself Daily TREATMENT/EQUIPMENT ORDERS: ADAPTIVE EQUIPMENT NEEDED: None, Brace/splint Physical Therapy For: Evalulation/Treatment Occupational Therapy For: Evaluation/Treatment Speech Language Pathology For: Evaluation/Treatment DISCHARGE MEDICATIONS: Home Meds Active Scripts Prednisone (PREDNISONE ) 10 Mg Tablet, 10 MG PO DAILY for copd exacerbation for 2 Days, #2 TAB 0 Refills Prov:JUDY ISLAS MD 01/15/19 Prednisone (PREDNISONE) 20 Mg Tablet, 1 TAB PO BID for copd exacerbation for 2 Days, #4 TAB Prov:JUDY ISLAS MD 01/15/19 Prednisone (PREDNISONE) 50 Mg Tablet, 50 MG PO DAILY for copd exacerbation for 3 Days, #3 TAB Prov:JUDY ISLAS MD 01/15/19 Hydrocodone Bit/Acetaminophen (HYDROCODONE-APAP 5-325 ) 1 Tab Tablet, 1 TAB PO PRN Q4HRS PRN for PAIN for 5 Days, #30 TAB Prov:JUDY ISLAS MD 01/15/19 Doxycycline Hyclate (DOXYCYCLINE HYCLATE) 100 Mg Tablet, 100 MG PO BID for copd exacerbation for 2 Days, #4 TAB Prov:JUDY ISLAS MD 01/15/19 Haloperidol (HALOPERIDOL) 2 Mg Tablet, 1 TAB PO BID for agitatiopm, #60 TAB 1 Refill Prov:RAJIV DIAMOND MD 10/22/18 Olanzapine (OLANZAPINE) 2.5 Mg Tablet, 2.5 MG PO DAILY for agitation MDD 1 for 30 Days, #30 TAB Prov:RAJIV DIAMOND MD 10/22/18 Amlodipine Besylate (AMLODIPINE BESYLATE) 10 Mg Tablet, 10 MG PO DAILY for htn MDD 1 for 30 Days, #30 TAB Prov:RAJIV DIAMOND MD 10/22/18 Hydralazine Hcl (HYDRALAZINE HCL) 25 Mg Tablet, 25 MG PO TID for htn MDD 1 for 30 Days, #90 TAB Prov:RAJIV DIAMOND MD 10/22/18 Colchicine (COLCRYS) 0.6 Mg Tablet, 0.6 MG PO DAILY for 30 Days, #30 TAB Prov:REJI ENG MD 01/03/18 Aspirin (ASPIRIN EC) 81 Mg Tablet.dr, 81 MG PO DAILYWBKFT for 30 Days, #30 TAB.SR Prov:REJI ENG MD 01/03/18 Ipratropium/Albuterol Sulfate (DUONEB 0.5-3(2.5) MG/3 ML) 3 Ml Ampul.neb, 3 ML NEB RTQID for 30 Days, #120 EACH Prov:REJI ENG MD 01/03/18 Metoprolol Tartrate (METOPROLOL TARTRATE) 50 Mg Tablet, 2 TAB PO BID for 30 Days, #120 TAB 5 Refills Prov:REJI ENG MD 01/03/18 Reported Medications Nystatin (NYSTATIN) 15 Gm Powder, 1 UMANG TP BID for excoriation, #1 BOTTLE 10/17/18 Magnesium Hydroxide (MILK OF MAGNESIA) 400 Mg/5 Ml Oral.susp, 400 MG PO PRN DAILY PRN for INDIGESTION, MISC 10/17/18 Magnesium Oxide (MAG-OXIDE) 400 Mg Tablet, 1 TAB PO BID for mag replacement, #60 TAB 5 Refills 10/17/18 Losartan Potassium (LOSARTAN POTASSIUM) 100 Mg Tablet, 100 MG PO DAILY for HYPERTENSION, TAB 10/17/18 Furosemide (LASIX) 20 Mg Tablet, 1 TAB PO DAILY for chf, #90 TAB 1 Refill 10/17/18 Potassium Chloride (POTASSIUM CHLORIDE) 20 Meq Tablet.er, 20 MEQ PO DAILY for lasix therapy, TAB.SR 10/15/18 Polyethylene Glycol 3350 (MIRALAX) 17 Gm Powd.pack, 1 PACKET PO PRN DAILY PRN for CONSTIPATION, #30 PACKET 3 Refills 03/09/16 Hydrocodone/Acetaminophen (Lortab 5-325 mg Tablet) 1 Each Tablet, 1 TAB PO PRN Q4HRS PRN for PAIN, TAB 0 Refills 03/09/16 Acetaminophen (TYLENOL) 325 Mg Tablet, 1 TAB PO PRN Q6HRS PRN for FEVER, #30 TAB 03/09/16 Famotidine (FAMOTIDINE) 20 Mg Tablet, 20 MG PO HS, TAB 03/05/16 JUDY ISLAS MD January 15, 2019 11:09
--- NOTE | 2019-01-15 12:54 | NUR ---
SW following pt for dc needs. Pt is LTC resident at [facility]. Orders faxed and Packet on chart. Pt will transport via facility arranged w/c van between [id number]. SW attempted to reach pt's but phone is disconnected. Pt aware of plans and agreeable. GUY GIMENEZ.
--- NOTE | 2019-01-15 13:22 | PDOC3 ---
Discharge Summary Visit Information Date of Admission: January 13, 2019 Date of Discharge: January 15, 2019 Final Diagnosis Problems Medical Problems: (1) Acute respiratory distress Status: Acute (2) CHF (congestive heart failure) Status: Acute (3) Chronic renal insufficiency Status: Acute (4) COPD exacerbation Status: Acute (5) Shortness of breath Status: Acute Brief Hospital Course Allergies Allergies Coded Allergies Type Severity Reaction Last Updated Verified Penicillins Allergy Intermediate Itching 03/06/16 Yes I S O L A T I O N *CONTACT* Allergy Unknown 10/16/18 Yes Vital Signs Vital Signs Date Time Temp Pulse Resp B/P (MAP) Pulse Ox O2 Delivery O2 Flow Rate FiO2 01/15/19 11:55 Room Air 01/15/19 11:00 97.7 69 17 141/72 (95) 99 97.7 01/14/19 11:00 3.0 Lab Results Laboratory Tests Test 01/13/19 18:05 01/14/19 06:23 01/15/19 03:50 Troponin I Quantitative 0.024 ng/mL (0.000-0.055) Sodium Level 138 mmol/L (136-145) 141 mmol/L (136-145) Potassium Level 5.3 mmol/L (3.5-5.1) 4.4 mmol/L (3.5-5.1) Chloride Level 105 mmol/L (98-107) 105 mmol/L (98-107) Carbon Dioxide Level 22 mmol/L (21-32) 22 mmol/L (21-32) Anion Gap 11 (6-14) 14 (6-14) Blood Urea Nitrogen 33 mg/dL (8-26) 39 mg/dL (8-26) Creatinine 1.4 mg/dL (0.7-1.3) 1.5 mg/dL (0.7-1.3) Estimated GFR (Cockcroft-Gault) 58.7 54.2 Glucose Level 135 mg/dL (70-99) 122 mg/dL (70-99) Calcium Level 9.3 mg/dL (8.5-10.1) 8.7 mg/dL (8.5-10.1) Phosphorus Level 3.2 mg/dL (2.6-4.7) 3.6 mg/dL (2.6-4.7) Albumin 3.0 g/dL (3.4-5.0) 3.0 g/dL (3.4-5.0) Laboratory Tests Test 01/15/19 03:50 Sodium Level 141 mmol/L (136-145) Potassium Level 4.4 mmol/L (3.5-5.1) Chloride Level 105 mmol/L (98-107) Carbon Dioxide Level 22 mmol/L (21-32) Anion Gap 14 (6-14) Blood Urea Nitrogen 39 mg/dL (8-26) Creatinine 1.5 mg/dL (0.7-1.3) Estimated GFR (Cockcroft-Gault) 54.2 Glucose Level 122 mg/dL (70-99) Calcium Level 8.7 mg/dL (8.5-10.1) Phosphorus Level 3.6 mg/dL (2.6-4.7) Albumin 3.0 g/dL (3.4-5.0) Brief Hospital Course 83 year old male wheelchair-bound SNF resident with PMHx A-Fib, Anemia, Arthritis, Arrhythmia, CHF, COPD, GERD, High Cholesterol, Hypertension, TIA, OBESITY, Hard of hearing, BPH, MDD, Dysphagia who presents with increased SOB, work of breathing, and wheezing over the last 24 hours. Received a breathing treatment at [facility] prior to being picked up by EMS. EMS administered 2 more breathing treatments en route and placed him on CPAP. In ED the patient demonstrated accessory muscle use with respirations and inability to speak through his breathing difficulties. Patient's O2 saturations were consistently above 95% on 100% FiO2 NC. Patient unable to provide any further history due to respiratory distress initially, but breathing a bit better after continuous nebs. EKG - Atrial Fibrillation at 76bpm. No ST elevations noted. Wide QRS appears consistent with former ECG's. Patient admitted with Acute respiratory failure, multifactorial in etiology including acute exacerbation of chronic obstructive pulmonary disease, acute diastolic/systolic congestive heart failure, acute bronchitis. started on IV steroids and doxy. flu negative. was continued on lasix. steroids weaned to PO and will be discharged on PO pred and doxy. Patient also has dementia and chronic A. fib which are stable. creatine stable at 1.4-1.5. K elevated to 5.3 and given Kayexalate with improvement in K,. patient stable for discharge back to SNU. Discharge Information Condition at Discharge: Stable Follow Up: Weeks (with PCP in 2 weeks) Disposition/Orders: D/C to Another Facility Scheduled Amlodipine Besylate (Amlodipine Besylate) 10 Mg Tablet, 10 MG PO DAILY for htn MDD 1 for 30 Days, #30 Prescribed by: RAJIV DIAMOND on 10/22/18 0804 Last Action: Continued on 01/13/19 1012 by JEWEL KNOWLES MD Aspirin (Aspirin Ec) 81 Mg Tablet.dr, 81 MG PO DAILYWBKFT for 30 Days, #30 Prescribed by: REJI ENG on 01/03/18 1207 Last Action: Continued on 01/13/19 1012 by JEWEL KNOWLES MD Colchicine (Colcrys) 0.6 Mg Tablet, 0.6 MG PO DAILY for 30 Days, #30 Prescribed by: REJI ENG on 01/03/18 1207 Doxycycline Hyclate (Doxycycline Hyclate) 100 Mg Tablet, 100 MG PO BID for copd exacerbation for 2 Days, #4 Prescribed by: JUDY ISLAS MD on 01/15/19 1101 Famotidine (Famotidine) 20 Mg Tablet, 20 MG PO HS, (Reported) Entered as Reported by: JARON HELTON on 03/05/16 0901 Last Action: Continued on 01/13/19 1012 by JEWEL KNOWLES MD Furosemide (Lasix) 20 Mg Tablet, 1 TAB PO DAILY for chf, #90 Ref 1 (Reported) Entered as Reported by: RANJIT BILLY on 10/17/18 1352 Last Action: Continued on 01/13/19 1012 by JEWEL KNOWLES MD Haloperidol (Haloperidol) 2 Mg Tablet, 1 TAB PO BID for agitatiopm, #60 Ref 1 Prescribed by: RAJIV DIAMOND on 10/22/18 0804 Last Action: Converted on 01/13/19 101 by JEWEL KNOWLES MD Hydralazine Hcl (Hydralazine Hcl) 25 Mg Tablet, 25 MG PO TID for htn MDD 1 for 30 Days, #90 Prescribed by: RAJIV DIAMOND on 10/22/18 0804 Last Action: Converted on 01/13/19 1012 by JEWEL KNOWLES MD Ipratropium/Albuterol Sulfate (Duoneb 0.5-3(2.5) Mg/3 Ml) 3 Ml Ampul.neb, 3 ML NEB RTQID for 30 Days, #120 Prescribed by: REJI ENG on 01/03/18 1207 Last Action: Continued on 01/13/19 1012 by JEWEL KNOWLES MD Losartan Potassium (Losartan Potassium) 100 Mg Tablet, 100 MG PO DAILY for HYPERTENSION, (Reported) Entered as Reported by: RANJIT BILLY on 10/17/18 1352 Magnesium Oxide (Mag-Oxide) 400 Mg Tablet, 1 TAB PO BID for mag replacement, #60 Ref 5 (Reported) Entered as Reported by: RANJIT BILLY on 10/17/18 1352 Metoprolol Tartrate (Metoprolol Tartrate) 50 Mg Tablet, 2 TAB PO BID for 30 Days, #120 Ref 5 Prescribed by: REJI ENG on 01/03/18 1207 Nystatin (Nystatin) 15 Gm Powder, 1 UMANG TP BID for excoriation, #1 (Reported) Entered as Reported by: RANJIT BILLY on 10/17/18 1352 Last Action: Continued on 01/13/19 1012 by JEWEL KNOWLES MD Olanzapine (Olanzapine) 2.5 Mg Tablet, 2.5 MG PO DAILY for agitation MDD 1 for 30 Days, #30 Prescribed by: RAJIV DIAMOND on 10/22/18 0804 Last Action: Converted on 01/13/19 1012 by JEWEL KNOWLES MD Potassium Chloride (Potassium Chloride) 20 Meq Tablet.er, 20 MEQ PO DAILY for lasix therapy, (Reported) Entered as Reported by: YING BASSETT RN on 10/15/18 0649 Prednisone (Prednisone) 50 Mg Tablet, 50 MG PO DAILY for copd exacerbation for 3 Days, #3 Prescribed by: JUDY ISLAS MD on 01/15/19 1105 Prednisone (Prednisone) 20 Mg Tablet, 1 TAB PO BID for copd exacerbation for 2 Days, #4 Prescribed by: JUDY ISLAS MD on 01/15/19 1107 Prednisone (Prednisone ) 10 Mg Tablet, 10 MG PO DAILY for copd exacerbation for 2 Days, #2 Ref 0 Prescribed by: JUDY ISLAS MD on 01/15/19 1108 Scheduled PRN Acetaminophen (Tylenol) 325 Mg Tablet, 1 TAB PO PRN Q6HRS PRN for FEVER, #30 (Reported) Entered as Reported by: GIRISH CROWDER on 03/09/16 1532 Last Action: Continued on 01/13/19 1012 by JEWEL KNOWLES MD Hydrocodone Bit/Acetaminophen (Hydrocodone-Apap 5-325 ) 1 Tab Tablet, 1 TAB PO PRN Q4HRS PRN for PAIN for 5 Days, #30 Prescribed by: JUDY ISLAS MD on 01/15/19 1101 Hydrocodone/Acetaminophen (Lortab 5-325 mg Tablet) 1 Each Tablet, 1 TAB PO PRN Q4HRS PRN for PAIN, Ref 0 (Reported) Entered as Reported by: GIRISH CROWDER on 03/09/16 1532 Last Action: Continued on 01/13/19 1012 by JEWEL KNOWLES MD Magnesium Hydroxide (Milk Of Magnesia) 400 Mg/5 Ml Oral.susp, 400 MG PO PRN DAILY PRN for INDIGESTION, (Reported) Entered as Reported by: RANJIT BILLY on 10/17/18 1352 Last Action: Continued on 01/13/19 1012 by JEWEL KNOWLES MD Polyethylene Glycol 3350 (Miralax) 17 Gm Powd.pack, 1 PACKET PO PRN DAILY PRN for CONSTIPATION, #30 Ref 3 (Reported) Entered as Reported by: GIRISH CROWDER on 03/09/16 1533 Last Action: Converted on 01/13/19 1012 by MD ROSHAN ARGUETA MANEESH MD January 15, 2019 13:22
--- NOTE | 2019-01-15 15:44 | NUR ---
Discharge Note: DARYL WEBSTER Discharge instructions and discharge home medications reviewed with Other facility and a copy given. All questions have been answered and understanding verbalized. The following instructions and handouts were given: SNU, info not printed. Discontinued lines and drains: pt did not have IV access at time of DC. Patient discharged to [facility] for ongoing care.
== END 2019-01-15 15:55 | disposition home or self-care (01) | DRG 189 ==
LOC: ER 05:13 → 1 WEST ICU 06:59 → 6 SOUTH 07:00 → 5 NORTH 01-14 23:03
PROVIDERS: ADMIT Internal Medicine; ATTEND Internal Medicine
DX: J96.00 Acute respiratory failure, unspecified whether with hypoxia or hypercapnia (principal); I50.43 Acute on chronic combined systolic (congestive) and diastolic (congestive) heart failure; J44.1 Chronic obstructive pulmonary disease with (acute) exacerbation; J44.0 Chronic obstructive pulmonary disease with (acute) lower respiratory infection; N17.9 Acute kidney failure, unspecified; I13.0 Hypertensive heart and chronic kidney disease with heart failure and stage 1 through stage 4 chronic kidney disease, or unspecified chronic kidney disease; J20.9 Acute bronchitis, unspecified; K21.9 Gastro-esophageal reflux disease without esophagitis; E78.00 Pure hypercholesterolemia, unspecified; E66.9 Obesity, unspecified; H91.90 Unspecified hearing loss, unspecified ear; N40.0 Benign prostatic hyperplasia without lower urinary tract symptoms; F32.9 Major depressive disorder, single episode, unspecified; M19.012 Primary osteoarthritis, left shoulder; M19.011 Primary osteoarthritis, right shoulder; N18.9 Chronic kidney disease, unspecified; I48.2 Chronic atrial fibrillation; I25.10 Atherosclerotic heart disease of native coronary artery without angina pectoris; E78.5 Hyperlipidemia, unspecified; F03.90 Unspecified dementia, unspecified severity, without behavioral disturbance, psychotic disturbance, mood disturbance, and anxiety; R13.10 Dysphagia, unspecified; D64.9 Anemia, unspecified; Z86.73 Personal history of transient ischemic attack (TIA), and cerebral infarction without residual deficits; Z68.37 Body mass index [BMI] 37.0-37.9, adult; Z95.0 Presence of cardiac pacemaker; Z90.49 Acquired absence of other specified parts of digestive tract; I25.2 Old myocardial infarction; Z82.49 Family history of ischemic heart disease and other diseases of the circulatory system; Z88.0 Allergy status to penicillin; Z87.891 Personal history of nicotine dependence; D63.8 Anemia in other chronic diseases classified elsewhere
CPT/HCPCS: 36415; 71045; 80053; 80069; 82553; 82805; 83605; 83735; 83880; 84484; 85025; 85610; 85730; 87040; 87804; 93005; 94640; 94644; 94760; 96365; 96366; 96375; J1100; J2920; J3490; J7512; J7613; J7620; J7626; 97116; 97530; 97535; 99285-25

== ENCOUNTER 2019-03-10 16:53 | Emergency (ER) | payer OTHER ==
[~2019-03-10] VITALS: Ht 165.1 cm; Wt 106.6 kg
[~2019-03-10 16:53] MED LIST changes: +DOXY100T PO; +HYDR-2761 PO; +PRED20TA PO; +PRED50TA PO
[2019-03-10] MEDS ORDERED: IPRATRPIUM/ALBUTEROL 0.5/2.5MG 3 ML NEBU. NEB ONE (17:15)
[2019-03-10] MEDS ORDERED: methylPREDNISolone SOD SUCC PF 125 MG/2 ML VIAL. IV ONE (17:15)
[2019-03-10 17:19] LABS: BASO # 0.1 x10^3/uL (0.0-0.2); BASO % 1 % (0-3); EOS # 1.1 x10^3/uL (0.0-0.7); EOS % 17 % (0-3); HEMATOCRIT 45.4 % (39.0-53.0); HEMOGLOBIN 14.8 g/dL (13.0-17.5); LYMPH % 15 % (24-48); MEAN CORPUSCULAR HEMOGLOBIN 30 pg (25-35); MEAN CORPUSCULAR HGB CONC 33 g/dL (31-37); MEAN CORPUSCULAR VOLUME 93 fL (79-100); MONO # 1.1 x10^3/uL (0.0-1.1); MONO % 17 % (0-9); NEUT # 3.1 x10^3/uL (1.8-7.7); NEUT % 49 % (31-73); PLATELET COUNT 156 x10^3/uL (140-400); RED BLOOD COUNT 4.89 x10^6/uL (4.30-5.70); RED CELL DISTRIBUTION WIDTH 17.9 % (11.5-14.5); WHITE BLOOD COUNT 6.3 x10^3/uL (4.0-11.0)
[2019-03-10 17:34] LABS: CALCIUM 8.9 mg/dL (8.5-10.1); CREATININE 1.4 mg/dL (0.7-1.3); GFR 58.7; POTASSIUM 4.2 mmol/L (3.5-5.1)
[2019-03-10 17:39] LABS: ALBUMIN 3.1 g/dL (3.4-5.0); ALBUMIN/GLOBULIN RATIO 0.6 (1.0-1.7); MAGNESIUM 1.9 mg/dL (1.8-2.4); TOTAL BILIRUBIN 0.4 mg/dL (0.2-1.0); TOTAL PROTEIN 7.9 g/dL (6.4-8.2)
[2019-03-10 17:52] LABS: % BASOS 1 % (0-3); % EOS 15 % (0-5); % LYMPHS 21 % (24-48); % MONOS 10 % (0-10); % SEGS 53 % (35-66)
[2019-03-10 17:53] LABS: PLT ESTIMATE ADEQUATE (ADEQUATE)
[2019-03-10 17:55] LABS: ANISOCYTOSIS SLIGHT; POLYCHROMASIA SLIGHT
--- NOTE | 2019-03-10 19:03 | RAD ---
AP chest x-ray HISTORY: Shortness of breath COMPARISON: Chest x-ray January 13, 2019. FINDINGS: Mild cardiomegaly stable. Single chamber cardiac pacemaker stable. Mediastinum is unremarkable. No pneumothorax, pulmonary opacities or pleural effusions. Bones are unremarkable. IMPRESSION: No acute process. Stable exam. Electronically signed by: Chapo Pitts MD (03/10/2019 6:59 PM) [facility]
--- NOTE | 2019-03-10 19:11 | PHYS DOC ---
Past Medical History Past Medical History: Anemia, CAD, COPD Additional Past Medical Histor: H/A, OBESITY, [place] POSTA, BPH,AMS,LYMPHEDEMA,MDD,PSYCHOSIS,NSTEMI,DYSPHAGIA (SOL CH APRN) Past Surgical History: Appendectomy, Pacemaker, Other Additional Past Surgical Histo: Hernia (SOL CH APRN) Alcohol Use: None Drug Use: None (SOL CH APRN) Adult General Chief Complaint Chief Complaint: SHORTNESS OF BREATH HPI HPI Patient is a 83 year old male with history of COPD, CAD, Dementia, who presents today from the half-way with reports of shortness of breath and wheezing but they noted this afternoon after he had lunch. Patient himself has no complaint. [facility] report states patient is on azithromycin for upper respiratory infection. Patient denies any fever. Denies any chest pain. He states he has had a slight cough. (SOL CH APRN) Review of Systems Review of Systems Constitutional: Denies fever or chills [] Eyes: Denies change in visual acuity, redness, or eye pain [] HENT: Denies nasal congestion or sore throat [] Respiratory: Reports cough, wheezing, shortness of breath [] Cardiovascular: No additional information not addressed in HPI [] GI: Denies abdominal pain, nausea, vomiting, bloody stools or diarrhea [] : Denies dysuria or hematuria [] Musculoskeletal: Denies back pain or joint pain [] Integument: Denies rash or skin lesions [] Neurologic: Denies headache, focal weakness or sensory changes [] All other systems were reviewed and found to be within normal limits, except as documented in this note. (SOL CH APRN) Current Medications Current Medications Current Medications Medications (Trade) Dose Ordered Sig/Katrina Start Time Stop Time Status Last Admin Dose Admin Albuterol/ Ipratropium (Duoneb) 3 ml 1X ONCE 03/10/19 17:15 03/10/19 17:16 DC 03/10/19 17:14 3 ML Methylprednisolone Sodium Succinate (SOLU-Medrol 125MG VIAL) 125 mg 1X ONCE 03/10/19 17:15 03/10/19 17:16 DC 03/10/19 17:24 125 MG (FLORIN GARCIA MD) Allergies Allergies Allergies Coded Allergies Type Severity Reaction Last Updated Verified Penicillins Allergy Intermediate Itching 03/06/16 Yes I S O L A T I O N *CONTACT* Allergy Unknown 10/16/18 Yes (FLORIN GARCIA MD) Physical Exam Physical Exam Constitutional: Well developed, well nourished, no acute distress, non-toxic appearance. [] HENT: Normocephalic, atraumatic, bilateral external ears normal, oropharynx moist, no oral exudates, nose normal. [] Eyes: PERRLA, EOMI, conjunctiva normal, no discharge. [] Neck: Normal range of motion, no tenderness, supple, no stridor. [] Cardiovascular:Heart rate regular rhythm, no murmur [] Lungs & Thorax: Wheezing noted diffusely on arrival to the ED. Abdomen: Bowel sounds normal, soft, no tenderness, no masses, no pulsatile masses. [] Skin: Warm, dry, no erythema, no rash. [] Back: No tenderness, no CVA tenderness. [] Extremities: No tenderness, no cyanosis, no clubbing, ROM intact,+2 chronic lymphedema. [] Neurologic: Alert and oriented X 2, normal motor function, normal sensory function, no focal deficits noted. [] Psychologic: Affect normal, judgement normal, mood normal. [] (SOL CH APRN) Current Patient Data Vital Signs Vital Signs Date Time Temp Pulse Resp B/P (MAP) Pulse Ox O2 Delivery O2 Flow Rate FiO2 03/10/19 20:30 68 19 115/68 (84) 96 Room Air 03/10/19 17:04 98.0 98.0 (FLORIN GARCIA MD) Lab Values Laboratory Tests Test 03/10/19 17:10 White Blood Count 6.3 x10^3/uL (4.0-11.0) Red Blood Count 4.89 x10^6/uL (4.30-5.70) Hemoglobin 14.8 g/dL (13.0-17.5) Hematocrit 45.4 % (39.0-53.0) Mean Corpuscular Volume 93 fL (79-100) Mean Corpuscular Hemoglobin 30 pg (25-35) Mean Corpuscular Hemoglobin Concent 33 g/dL (31-37) Red Cell Distribution Width 17.9 % (11.5-14.5) H Platelet Count 156 x10^3/uL (140-400) Neutrophils (%) (Auto) 49 % (31-73) Lymphocytes (%) (Auto) 15 % (24-48) L Monocytes (%) (Auto) 17 % (0-9) H Eosinophils (%) (Auto) 17 % (0-3) H Basophils (%) (Auto) 1 % (0-3) Neutrophils # (Auto) 3.1 x10^3/uL (1.8-7.7) Lymphocytes # (Auto) 1.0 x10^3/uL (1.0-4.8) Monocytes # (Auto) 1.1 x10^3/uL (0.0-1.1) Eosinophils # (Auto) 1.1 x10^3/uL (0.0-0.7) H Basophils # (Auto) 0.1 x10^3/uL (0.0-0.2) Segmented Neutrophils % 53 % (35-66) Lymphocytes % 21 % (24-48) L Monocytes % 10 % (0-10) Eosinophils % 15 % (0-5) H Basophils % 1 % (0-3) Platelet Estimate Adequate (ADEQUATE) Polychromasia Slight Anisocytosis Slight Prothrombin Time 13.0 SEC (11.7-14.0) Prothrombin Time INR 1.0 (0.8-1.1) Sodium Level 142 mmol/L (136-145) Potassium Level 4.2 mmol/L (3.5-5.1) Chloride Level 102 mmol/L (98-107) Carbon Dioxide Level 30 mmol/L (21-32) Anion Gap 10 (6-14) Blood Urea Nitrogen 18 mg/dL (8-26) Creatinine 1.4 mg/dL (0.7-1.3) H Estimated GFR (Cockcroft-Gault) 58.7 BUN/Creatinine Ratio 13 (6-20) Glucose Level 98 mg/dL (70-99) Calcium Level 8.9 mg/dL (8.5-10.1) Magnesium Level 1.9 mg/dL (1.8-2.4) Total Bilirubin 0.4 mg/dL (0.2-1.0) Aspartate Amino Transferase (AST) 17 U/L (15-37) Alanine Aminotransferase (ALT) 15 U/L (16-63) L Alkaline Phosphatase 129 U/L (46-116) H Creatine Kinase 75 U/L (39-308) Creatine Kinase MB (Mass) 1.9 ng/mL (0.0-3.6) Creatine Kinase MB Relative Index 2.5 % (0-4) Troponin I Quantitative 0.026 ng/mL (0.000-0.055) OD-Aqf-L-Type Natriuretic Peptide 1730 pg/mL (0-449) H Total Protein 7.9 g/dL (6.4-8.2) Albumin 3.1 g/dL (3.4-5.0) L Albumin/Globulin Ratio 0.6 (1.0-1.7) L Thyroid Stimulating Hormone (TSH) 3.174 uIU/mL (0.358-3.74) Laboratory Tests 03/10/19 17:10 Laboratory Tests 03/10/19 17:10 (FLORIN GARCIA MD) EKG EKG 17:[address] Andrews sinus rhythm HR 71 no STEMI[] (SOL CH APRN) Radiology/Procedures Radiology/Procedures []PROCEDURE: PORTABLE CHEST 1V AP chest x-ray HISTORY: Shortness of breath COMPARISON: Chest x-ray January 13, 2019. FINDINGS: Mild cardiomegaly stable. Single chamber cardiac pacemaker stable. Mediastinum is unremarkable. No pneumothorax, pulmonary opacities or pleural effusions. Bones are unremarkable. IMPRESSION: No acute process. Stable exam. Electronically signed by: Yeimi Pitts MD (03/10/2019 6:59 PM) [facility] DICTATED and SIGNED BY: YEIMI PITTS MD DATE: 03/10/191858 (SOL CH APRN) Course & Med Decision Making Course & Med Decision Making Pertinent Labs and Imaging studies reviewed. (See chart for details) This is a 83-year-old male patient with history of COPD being brought to the ED via EMS from a half-way for shortness of breath and wheezing, patient himself has no complaint, this was reported by half-way staff. Patient is apparently on azithromycin for upper respiratory infection. Patient's chest x-ray was negative for any acute findings, labs are negative. Patient was given a DuoNeb treatment, Solu-Medrol. Lungs are clear. He continues to have no complaints-he states his breathing is baseline right now. Patient was discharged back to the half-way. Recommended breathing treatme nts. Recommended prednisone for couple days. Follow-up with primary care doctor. (SOL CH APRN) Course & Med Decision Making Staff Physician Addendum: I was working in the ER during the course of this patient's visit. I was available for consultation as needed, but I was not directly involved in the care of this patient. (FLORIN GARCIA MD) Dragon Disclaimer Dragon Disclaimer This electronic medical record was generated, in whole or in part, using a voice recognition dictation system. (SOL CH APRN) Departure Departure Impression: Primary Impression: COPD (chronic obstructive pulmonary disease) Disposition: HOME, SELF-CARE Condition: STABLE Referrals: MIKE SMITH MD (PCP) follow up in the course of this week Patient Instructions: Chronic Obstructive Pulmonary Disease Additional Instructions: You were evaluated in the emergency room with symptoms consistent with COPD. Continue breathing treatments at home. Continue taking antibiotics until completed. Take prednisone for 5 days. Follow-up with your doctor in the course of this week. Scripts Albuterol Sulfate (Proventil Hfa) 6.7 Gm Hfa.aer.ad 1 PUFF INH PRN Q6HRS PRN for SHORTNESS OF BREATH, #1 INHALER Prov: SOL CH APRN 03/10/19 Prednisone (PREDNISONE) 50 Mg Tablet 1 TAB PO DAILY, #5 TAB Prov: SOL CH APRN 03/10/19 Problem Qualifiers Primary Impression: COPD (chronic obstructive pulmonary disease) COPD type: unspecified COPD Qualified Codes: J44.9 - Chronic obstructive pulmonary disease, unspecified SOL CH APRN Mar 10, 2019 19:11 FLORIN GARCIA MD Mar 11, 2019 04:58
[2019-03-10] MEDS ORDERED: PRED50TA PO (19:17)
[2019-03-10] MEDS ORDERED: PROVENTIL HFA6.7 G2 INH (19:17)
[2019-03-10 20:30] VITALS: BP 115/68
--- NOTE | 2019-03-11 06:02 | EKG ---
[facility] [address] [place] [address] Test Date: 2019-03-10 Test Time: 17:02:53 Pat Name: DARYL WEBSTER Department: Room: Gender: M Baker Bread: : 1935 Requested By: SOL CH Order Number: [id number] Reading MD: Measurements Intervals [place] Rate: 71 P: TX: QRS: -69 QRSD: 176 T: 90 QT: 454 QTc: 493 Interpretive Statements IRREGULAR RHYTHM, NO P-WAVE FOUND VENTRICULAR PREMATURE COMPLEX(ES) ABNORMAL LEFT AXIS DEVIATION NON SPECIFIC INTRAVENTRICULAR BLOCK QRS(T) CONTOUR ABNORMALITY CONSISTENT WITH ANTEROLATERAL INFARCT PROBABLY OLD CONSISTENT WITH INFERIOR INFARCT PROBABLY OLD ABNORMAL ECG RI6.01 Unconfirmed report No previous ECG available for comparison
== END 2019-03-10 21:02 | disposition home or self-care (01) ==
LOC: ER 16:53
DX: J44.9 Chronic obstructive pulmonary disease, unspecified (principal); I25.10 Atherosclerotic heart disease of native coronary artery without angina pectoris; I25.2 Old myocardial infarction; E66.9 Obesity, unspecified; Z68.39 Body mass index [BMI] 39.0-39.9, adult; Z95.0 Presence of cardiac pacemaker; Z88.0 Allergy status to penicillin; Z91.041 Radiographic dye allergy status
CPT/HCPCS: 36415; 71045; 80053; 82553; 83735; 83880; 84443; 84484; 85007; 85025; 85610; 93005; 94640; 96374; 99285; J2930; J7620

== ENCOUNTER 2019-07-03 15:51 | Inpatient (IN) | payer OTHER ==
[~2019-07-03] VITALS: Ht 160 cm; Wt 98.2 kg
[~2019-07-03 15:51] MED LIST changes: +PROVENTIL HFA6.7 G2 INH
[2019-07-03] MEDS ORDERED: methylPREDNISolone SOD SUCC PF 125 MG/2 ML VIAL. IV ONE (16:30)
[2019-07-03] MEDS ORDERED: IPRATRPIUM/ALBUTEROL 0.5/2.5MG 3 ML NEBU. NEB ONE (16:30)
--- NOTE | 2019-07-03 16:37 | RAD ---
EXAM: Chest, single view. HISTORY: Wheezing. Shortness of breath. COMPARISON: 03/10/2019 FINDINGS: A frontal view of the chest is obtained. Air is slight increased diffuse interstitial opacity. There is no consolidation. There is suspected basilar atelectasis. No pleural effusion or pneumothorax is seen. The heart is normal in size. There is a cardiac pacemaker overlying expected position. IMPRESSION: Diffuse increased interstitial opacity due to chronic interstitial change or trace interstitial infiltrate. The superimposed on suspected bilateral basilar atelectasis. Electronically signed by: Nicole Burgess MD (07/03/2019 4:34 PM) [place] [id number]
[2019-07-03 18:08] LABS: BASO % 1 % (0-3); EOS # 0.1 x10^3/uL (0.0-0.7); EOS % 1 % (0-3); HEMATOCRIT 53.5 % (39.0-53.0); HEMOGLOBIN 17.4 g/dL (13.0-17.5); LYMPH # 0.3 x10^3/uL (1.0-4.8); LYMPH % 6 % (24-48); MEAN CORPUSCULAR HEMOGLOBIN 31 pg (25-35); MEAN CORPUSCULAR HGB CONC 33 g/dL (31-37); MEAN CORPUSCULAR VOLUME 96 fL (79-100); MONO # 0.1 x10^3/uL (0.0-1.1); MONO % 2 % (0-9); NEUT # 5.4 x10^3/uL (1.8-7.7); NEUT % 91 % (31-73); PLATELET COUNT 129 x10^3/uL (140-400); RED BLOOD COUNT 5.57 x10^6/uL (4.30-5.70); RED CELL DISTRIBUTION WIDTH 16.5 % (11.5-14.5)
[2019-07-03 18:21] LABS: % BANDS 1 % (0-9); % BASOS 2 % (0-3); % EOS 2 % (0-5); % LYMPHS 7 % (24-48); % MONOS 1 % (0-10); % SEGS 87 % (35-66)
[2019-07-03 18:22] LABS: PLT ESTIMATE DECREASED (ADEQUATE)
[2019-07-03 18:24] LABS: TOXIC GRANULATION SLIGHT; TOXIC VACUOLATION SLIGHT
[2019-07-03 19:13] LABS: CALCIUM 9.2 mg/dL (8.5-10.1); CREATININE 1.6 mg/dL (0.7-1.3); GFR 50.3; POTASSIUM 4.1 mmol/L (3.5-5.1)
[2019-07-03 19:19] LABS: ALBUMIN 3.1 g/dL (3.4-5.0); ALBUMIN/GLOBULIN RATIO 0.6 (1.0-1.7); MAGNESIUM 1.9 mg/dL (1.8-2.4); TOTAL BILIRUBIN 0.7 mg/dL (0.2-1.0)
[2019-07-03 19:24] LABS: CREATINE KINASE 73 U/L (39-308)
[2019-07-03] MEDS ORDERED: IV NORMAL SALINE 1000ML BAG 1,000 ML IV ONE ×2 (20:00)
[2019-07-03] MEDS ORDERED: ONDANSETRON PF 4 MG/2 ML VIAL. IV PRN (20:00)
[2019-07-03] MEDS ORDERED: MORPHINE SULFATE 4 MG/ML VIAL. IV PRN (20:00)
[2019-07-03] MEDS ORDERED: ACETAMINOPHEN 325 MG TABLET. PO PRN (20:00)
--- NOTE | 2019-07-03 20:15 | PHYS DOC ---
Past Medical History Past Medical History: Anemia, CAD, COPD Additional Past Medical Histor: H/A, OBESITY, [place], BPH,AMS,LYMPHEDEMA,MDD,PSYCHOSIS,NSTEMI,DYSPHAGIA (SOL CH APRN) Past Surgical History: Appendectomy, Pacemaker, Other Additional Past Surgical Histo: Hernia (SOL CH APRN) Alcohol Use: None Drug Use: None (SOL CH APRN) Adult General Chief Complaint Chief Complaint: DYSPNEA/RESPIRATOY DISTRESS HPI HPI Patient is a 83 year old male with history of CAD, COPD, anemia, renal insufficiency, who presents to the ED today to be evaluated for wheezing and shortness of breath that has been going on for couple days. Patient is a very poor historian. He states he followed instructions from the detention to be brought to the ED. (SOL CH APRN) Review of Systems Review of Systems Constitutional: Denies fever or chills [] Eyes: Denies change in visual acuity, redness, or eye pain [] HENT: Denies nasal congestion or sore throat [] Respiratory: Reports cough, shortness of breath, wheezing Cardiovascular: No additional information not addressed in HPI [] GI: Denies abdominal pain, nausea, vomiting, bloody stools or diarrhea [] : Denies dysuria or hematuria [] Musculoskeletal: Denies back pain or joint pain [] Integument: Denies rash or skin lesions [] Neurologic: Denies headache, focal weakness or sensory changes [] All other systems were reviewed and found to be within normal limits, except as documented in this note. (SOL CH APRN) Current Medications Current Medications Current Medications Medications (Trade) Dose Ordered Sig/Katrina Start Time Stop Time Status Last Admin Dose Admin Albuterol/ Ipratropium (Duoneb) 3 ml 1X ONCE 07/03/19 16:30 07/03/19 16:31 DC 07/03/19 16:35 3 ML Methylprednisolone Sodium Succinate (SOLU-Medrol 125MG VIAL) 125 mg 1X ONCE 07/03/19 16:30 07/03/19 16:31 DC 07/03/19 18:11 125 MG (LLOYD ADAMS DO) Allergies Allergies Allergies Coded Allergies Type Severity Reaction Last Updated Verified Penicillins Allergy Intermediate Itching 03/06/16 Yes I S O L A T I O N *CONTACT* Allergy Unknown 10/16/18 Yes (LLOYD ADAMS DO) Physical Exam Physical Exam Constitutional: Well developed, well nourished, no acute distress, non-toxic appearance. [] HENT: Normocephalic, atraumatic, bilateral external ears normal, oropharynx moist, no oral exudates, nose normal. [] Eyes: PERRLA, EOMI, conjunctiva normal, no discharge. [] Neck: Normal range of motion, no tenderness, supple, no stridor. [] Cardiovascular:Heart rate regular rhythm, no murmur [] Lungs & Thorax: Diffuse wheezing throughout the lung bases. Abdomen: Bowel sounds normal, soft, no tenderness, no masses, no pulsatile masses. [] Skin: Warm, dry, no erythema, no rash. [] Back: No tenderness, no CVA tenderness. [] Extremities: No tenderness, no cyanosis, no clubbing, ROM intact, no edema. [] Neurologic: Alert and oriented X 3, normal motor function, normal sensory function, no focal deficits noted. [] Psychologic: Affect normal, judgement normal, mood normal. [] (SOL CH APRN) Current Patient Data Vital Signs Vital Signs Date Time Temp Pulse Resp B/P (MAP) Pulse Ox O2 Delivery O2 Flow Rate FiO2 07/03/19 17:30 68 20 136/88 (104) 94 Nasal Cannula 4.0 07/03/19 15:52 98.1 98.1 (LLOYD ADAMS DO) Lab Values Laboratory Tests Test 07/03/19 17:45 White Blood Count 6.0 x10^3/uL (4.0-11.0) Red Blood Count 5.57 x10^6/uL (4.30-5.70) Hemoglobin 17.4 g/dL (13.0-17.5) Hematocrit 53.5 % (39.0-53.0) H Mean Corpuscular Volume 96 fL (79-100) Mean Corpuscular Hemoglobin 31 pg (25-35) Mean Corpuscular Hemoglobin Concent 33 g/dL (31-37) Red Cell Distribution Width 16.5 % (11.5-14.5) H Platelet Count 129 x10^3/uL (140-400) L Neutrophils (%) (Auto) 91 % (31-73) H Lymphocytes (%) (Auto) 6 % (24-48) L Monocytes (%) (Auto) 2 % (0-9) Eosinophils (%) (Auto) 1 % (0-3) Basophils (%) (Auto) 1 % (0-3) Neutrophils # (Auto) 5.4 x10^3/uL (1.8-7.7) Lymphocytes # (Auto) 0.3 x10^3/uL (1.0-4.8) L Monocytes # (Auto) 0.1 x10^3/uL (0.0-1.1) Eosinophils # (Auto) 0.1 x10^3/uL (0.0-0.7) Basophils # (Auto) 0.0 x10^3/uL (0.0-0.2) Segmented Neutrophils % 87 % (35-66) H Band Neutrophils % 1 % (0-9) Lymphocytes % 7 % (24-48) L Monocytes % 1 % (0-10) Eosinophils % 2 % (0-5) Basophils % 2 % (0-3) Toxic Granulation Slight Toxic Vacuolation Slight Platelet Estimate Decreased (ADEQUATE) Lactic Acid Level 3.2 mmol/L (0.4-2.0) H Laboratory Tests 07/03/19 17:45 (LLOYD ADAMS DO) EKG EKG [address] Andrews paced rhythm heart rate 70 no STEMI (SOL CH APRN) Radiology/Procedures Radiology/Procedures []PROCEDURE: PORTABLE CHEST 1V EXAM: Chest, single view. HISTORY: Wheezing. Shortness of breath. COMPARISON: 03/10/2019 FINDINGS: A frontal view of the chest is obtained. Air is slight increased diffuse interstitial opacity. There is no consolidation. There is suspected basilar atelectasis. No pleural effusion or pneumothorax is seen. The heart is normal in size. There is a cardiac pacemaker overlying expected position. IMPRESSION: Diffuse increased interstitial opacity due to chronic interstitial change or trace interstitial infiltrate. The superimposed on suspected bilateral basilar atelectasis. Electronically signed by: Nicole Banks MD (07/03/2019 4:34 PM) [place] [id number] DICTATED and SIGNED BY: NICOLE BANKS MD DATE: 07/03/19 9432 (SOL CH APRN) Course & Med Decision Making Course & Med Decision Making Pertinent Labs and Imaging studies reviewed. (See chart for details) This is a 83-year-old male patient with history of COPD presenting to the ED today with shortness of breath and wheezing that has been going on for couple days. Patient arrives in the ED wheezing, DuoNeb treatment and Solu-Medrol were ordered. CBC with normal WBC, CMP with creatinine of 1.6, BUN 15. Chest x-ray interpreted by radiologist was noted for Diffuse increased interstitial opacity due to chronic interstitial change or trace interstitial infiltrate. The superimposed on suspected bilateral basilar atelectasis. Spoke with Dr. Nayak who accepted patient for admission As i was doing patient's admission orders i noted his lactic was 3.2. I added antibiotics as well as IV fluids to his ordered, he is already on the floor. (SOL CH APRN) Dragon Disclaimer Dragon Disclaimer This electronic medical record was generated, in whole or in part, using a voice recognition dictation system. (SOL CH APRN) Departure Departure Impression: Primary Impression: COPD (chronic obstructive pulmonary disease) Additional Impressions: Elevated lactic acid level Acute renal failure Disposition: ADMITTED INPATIENT Condition: STABLE Referrals: SILAS PINTO MD (PCP) Attending Signature Attending Signature I have reviewed the PA/MOLD CAR PUSHER's note and plan of care. I was available for consultation as needed during the patient's visit in the emergency department. I agree with the clinical impression, plan, and disposition. (LLOYD ADAMS DO) Problem Qualifiers Primary Impression: COPD (chronic obstructive pulmonary disease) COPD type: unspecified COPD Qualified Codes: J44.9 - Chronic obstructive pulmonary disease, unspecified Additional Impressions: Acute renal failure Acute renal failure type: unspecified Qualified Codes: N17.9 - Acute kidney failure, unspecified SOL CH APRN Jul 03, 2019 20:15 LLOYD ADAMS DO Jul 04, 2019 03:16
[2019-07-03] MEDS ORDERED: VANCOMYCIN 2 GM in IV NORMAL SALINE 500ML BAG 500 ML IV ONE (20:30)
[2019-07-03 20:45] VITALS: BP 119/77
--- NOTE | 2019-07-03 20:49 | PDOC1 ---
History and Physical Date of Admission Date of Admission DATE: 07/03/19 TIME: 20:43 Source Source: Chart review, Patient History of Present Illness History of Present Illness Mr. house, is a 83 year old male admit with acute dyspnea, brought for wheeze and cough and shortness of breath. He has a history of CAD, COPD, anemia, renal insufficiency, with days of cough and malaise Patient is a very poor historian. he says he was sent from his doctors office, but was sent from his snf Past Medical History Cardiovascular: CAD, CHF, HTN, Hyperlipidemia, Other Pulmonary: COPD, Pneumonia GI: GERD, Other Heme/Onc: Anemia NOS Psych: Depression, Other Musculoskeletal: Osteoarthritis, Weakness Rheumatologic: Other Renal/: Chronic renal insuff, Benign prostatic enlarg. Past Surgical History Past Surgical History: Pacemaker, Appendectomy, Cholecystectomy, Other Family History Family History: Heart Disease, Hypertension Social History Smoke: No ALCOHOL: none Drugs: None Current Problem List Problem List Problems Medical Problems: (1) Acute renal failure Status: Acute (2) COPD (chronic obstructive pulmonary disease) Status: Acute (3) Elevated lactic acid level Status: Acute Current Medications Current Medications Current Medications Albuterol/ Ipratropium (Duoneb) 3 ml 1X ONCE NEB Last administered on 07/03/19at 16:35; Start 07/03/19 at 16:30; Stop 07/03/19 at 16:31; Status DC Methylprednisolone Sodium Succinate (SOLU-Medrol 125MG VIAL) 125 mg 1X ONCE IV Last administered on 07/03/19at 18:11; Start 07/03/19 at 16:30; Stop 07/03/19 at 16:31; Status DC Sodium Chloride 1,000 ml @ 1,000 mls/hr 1X ONCE IV ; Start 07/03/19 at 20:00; Stop 07/03/19 at 20:59 Sodium Chloride 1,000 ml @ 1,000 mls/hr 1X ONCE IV ; Start 07/03/19 at 20:00; Stop 07/03/19 at 20:59 Ondansetron HCl (Zofran) 4 mg PRN Q8HRS PRN IV NAUSEA/VOMITING; Start 07/03/19 at 20:00; Stop 07/04/19 at 19:59 Morphine Sulfate (Morphine Sulfate) 4 mg PRN Q2HR PRN IV PAIN; Start 07/03/19 at 20:00; Stop 07/04/19 at 19:59 Acetaminophen (Tylenol) 650 mg PRN Q4HRS PRN PO FEVER; Start 07/03/19 at 20:00; Stop 07/04/19 at 19:59 Albuterol/ Ipratropium (Duoneb) 3 ml RTQID NEB ; Start 07/03/19 at 20:00; Stop 07/04/19 at 19:59 Levofloxacin/ Dextrose 100 ml @ 100 mls/hr 1X ONCE IV ; Start 07/03/19 at 20:00; Stop 07/03/19 at 20:59 Vancomycin HCl (Vanco Per Pharmacy) 1 each PRN DAILY PRN MC SEE COMMENTS; Start 07/03/19 at 20:00; Status UNV Vancomycin HCl 2 gm/Sodium Chloride 500 ml @ 250 mls/hr 1X ONCE IV ; Start 07/03/19 at 20:30; Stop 07/03/19 at 22:29 Active Scripts Active Proventil Hfa (Albuterol Sulfate) 6.7 Gm Hfa.aer.ad 1 Puff INH PRN Q6HRS PRN Prednisone 50 Mg Tablet 1 Tab PO DAILY Prednisone (Prednisone) 10 Mg Tablet 10 Mg PO DAILY 2 Days Prednisone 20 Mg Tablet 1 Tab PO BID 2 Days Prednisone 50 Mg Tablet 50 Mg PO DAILY 3 Days Hydrocodone-Apap 5-325 (Hydrocodone Bit/Acetaminophen) 1 Tab Tablet 1 Tab PO PRN Q4HRS PRN 5 Days Doxycycline Hyclate 100 Mg Tablet 100 Mg PO BID 2 Days Haloperidol 2 Mg Tablet 1 Tab PO BID Olanzapine 2.5 Mg Tablet 2.5 Mg PO DAILY MDD 1 30 Days Amlodipine Besylate 10 Mg Tablet 10 Mg PO DAILY MDD 1 30 Days Hydralazine Hcl 25 Mg Tablet 25 Mg PO TID MDD 1 30 Days Colcrys (Colchicine) 0.6 Mg Tablet 0.6 Mg PO DAILY 30 Days Aspirin Ec (Aspirin) 81 Mg Tablet.dr 81 Mg PO DAILYWBKFT 30 Days Duoneb 0.5-3(2.5) Mg/3 Ml (Albuterol/Ipratropium) 3 Ml Ampul.neb 3 Ml NEB RTQID 30 Days Metoprolol Tartrate 50 Mg Tablet 2 Tab PO BID 30 Days Reported Nystatin 15 Gm Powder 1 Alberto TP BID Milk Of Magnesia (Magnesium Hydroxide) 400 Mg/5 Ml Oral.susp 400 Mg PO PRN DAILY PRN Mag-Oxide (Magnesium Oxide) 400 Mg Tablet 1 Tab PO BID Losartan Potassium 100 Mg Tablet 100 Mg PO DAILY Lasix (Furosemide) 20 Mg Tablet 1 Tab PO DAILY Potassium Chloride 20 Meq Tablet.er 20 Meq PO DAILY Miralax (Polyethylene Glycol 3350) 17 Gm Powd.pack 1 Packet PO PRN DAILY PRN Tylenol (Acetaminophen) 325 Mg Tablet 1 Tab PO PRN Q6HRS PRN Famotidine 20 Mg Tablet 20 Mg PO HS Allergies Allergies: Coded Allergies: Penicillins (Verified Allergy, Intermediate, Itching, 03/06/16) I S O L A T I O N *CONTACT* (Verified Allergy, Unknown, 10/16/18) mrsa ROS General: YES: Fatigue, Malaise PSYCHOLOGICAL ROS: YES: Sleep disturbances Respiratory: YES: Cough, Shortness of breath, SOB with excertion; No: Hemoptysis, Orthopnea, Pleuritic Pain, Sputum Changes, Stridor, Tachypnea, Wheezing, Other Cardiovascular: yes Chest Pain; No Palpitations, No Orthopnea, No Paroxysmal Noc. Dyspnea, No Edema, No Lt Headedness, No Other Gastrointestinal: No Nausea, No Vomiting, No Abdominal Pain, No Diarrhea, No Constipation, No Melena, No Hematochezia, No Other Genitourinary: No Dysuria, No Frequency, No Incontinence, No Hematuria, No Retention, No Discharge, No Urgency, No Pain, No Flank Pain, No Other, No , No , No , No , No , No , No Musculoskeletal: No Gait Disturbance, No Joint Pain, No Joint Stiffness, No Joint Swelling, No Muscle Pain, No Muscular Weakness, No Pain In:, No Swelling In:, No Other Neurological: No Behavorial Changes, No Bowel/Bladder ControlChng, No Confusion, No Dizziness, No Gait Disturbance, No Headaches, No Impaired Coord/balance, No Memory Loss, No Numbness/Tingling, No Seizures, No Speech Problems, No Tremors, No Visual Changes, No Weakness, No Other Skin: No Dry Skin, No Eczema, No Hair Changes, No Lumps, No Mole Changes, No Mottling, No Nail Changes, No Pruritus, No Rash, No Skin Lesion Changes, No Other, No Acne Physical Exam General: Alert, Cooperative, Other (disoriented 0/3,. consistent with dementia) HEENT: Atraumatic Lungs: Clear to auscultation Heart: S1S2, RRR Abdomen: Normal bowel sounds, Soft Extremities: No cyanosis, Other Skin: No rashes, No significant lesion Neuro: Other Psych/Mental Status: Other Vitals Vitals Vital Signs Date Time Temp Pulse Resp B/P (MAP) Pulse Ox O2 Delivery O2 Flow Rate FiO2 07/03/19 18:30 68 20 121/75 (90) 95 Nasal Cannula 4.0 07/03/19 15:52 98.1 98.1 Labs Labs Laboratory Tests Test 07/03/19 17:45 07/03/19 18:20 07/03/19 18:30 White Blood Count 6.0 x10^3/uL (4.0-11.0) Red Blood Count 5.57 x10^6/uL (4.30-5.70) Hemoglobin 17.4 g/dL (13.0-17.5) Hematocrit 53.5 % (39.0-53.0) Mean Corpuscular Volume 96 fL (79-100) Mean Corpuscular Hemoglobin 31 pg (25-35) Mean Corpuscular Hemoglobin Concent 33 g/dL (31-37) Red Cell Distribution Width 16.5 % (11.5-14.5) Platelet Count 129 x10^3/uL (140-400) Neutrophils (%) (Auto) 91 % (31-73) Lymphocytes (%) (Auto) 6 % (24-48) Monocytes (%) (Auto) 2 % (0-9) Eosinophils (%) (Auto) 1 % (0-3) Basophils (%) (Auto) 1 % (0-3) Neutrophils # (Auto) 5.4 x10^3/uL (1.8-7.7) Lymphocytes # (Auto) 0.3 x10^3/uL (1.0-4.8) Monocytes # (Auto) 0.1 x10^3/uL (0.0-1.1) Eosinophils # (Auto) 0.1 x10^3/uL (0.0-0.7) Basophils # (Auto) 0.0 x10^3/uL (0.0-0.2) Segmented Neutrophils % 87 % (35-66) Band Neutrophils % 1 % (0-9) Lymphocytes % 7 % (24-48) Monocytes % 1 % (0-10) Eosinophils % 2 % (0-5) Basophils % 2 % (0-3) Toxic Granulation Slight Toxic Vacuolation Slight Platelet Estimate Decreased (ADEQUATE) Lactic Acid Level 3.2 mmol/L (0.4-2.0) Procalcitonin < 0.10 ng/mL (0.00-0.10) Sodium Level 142 mmol/L (136-145) Potassium Level 4.1 mmol/L (3.5-5.1) Chloride Level 104 mmol/L (98-107) Carbon Dioxide Level 25 mmol/L (21-32) Anion Gap 13 (6-14) Blood Urea Nitrogen 15 mg/dL (8-26) Creatinine 1.6 mg/dL (0.7-1.3) Estimated GFR (Cockcroft-Gault) 50.3 BUN/Creatinine Ratio 9 (6-20) Glucose Level 140 mg/dL (70-99) Calcium Level 9.2 mg/dL (8.5-10.1) Magnesium Level 1.9 mg/dL (1.8-2.4) Total Bilirubin 0.7 mg/dL (0.2-1.0) Aspartate Amino Transf (AST/SGOT) 18 U/L (15-37) Alanine Aminotransferase (ALT/SGPT) 13 U/L (16-63) Alkaline Phosphatase 133 U/L (46-116) Creatine Kinase 73 U/L (39-308) Creatine Kinase MB (Mass) 2.0 ng/mL (0.0-3.6) Creatine Kinase MB Relative Index % (0-4) Troponin I Quantitative < 0.017 ng/mL (0.000-0.055) CB-Gxj-T-Type Natriuretic Peptide 1674 pg/mL (0-449) Total Protein 8.0 g/dL (6.4-8.2) Albumin 3.1 g/dL (3.4-5.0) Albumin/Globulin Ratio 0.6 (1.0-1.7) Laboratory Tests Test 07/03/19 17:45 07/03/19 18:20 07/03/19 18:30 White Blood Count 6.0 x10^3/uL (4.0-11.0) Red Blood Count 5.57 x10^6/uL (4.30-5.70) Hemoglobin 17.4 g/dL (13.0-17.5) Hematocrit 53.5 % (39.0-53.0) Mean Corpuscular Volume 96 fL (79-100) Mean Corpuscular Hemoglobin 31 pg (25-35) Mean Corpuscular Hemoglobin Concent 33 g/dL (31-37) Red Cell Distribution Width 16.5 % (11.5-14.5) Platelet Count 129 x10^3/uL (140-400) Neutrophils (%) (Auto) 91 % (31-73) Lymphocytes (%) (Auto) 6 % (24-48) Monocytes (%) (Auto) 2 % (0-9) Eosinophils (%) (Auto) 1 % (0-3) Basophils (%) (Auto) 1 % (0-3) Neutrophils # (Auto) 5.4 x10^3/uL (1.8-7.7) Lymphocytes # (Auto) 0.3 x10^3/uL (1.0-4.8) Monocytes # (Auto) 0.1 x10^3/uL (0.0-1.1) Eosinophils # (Auto) 0.1 x10^3/uL (0.0-0.7) Basophils # (Auto) 0.0 x10^3/uL (0.0-0.2) Segmented Neutrophils % 87 % (35-66) Band Neutrophils % 1 % (0-9) Lymphocytes % 7 % (24-48) Monocytes % 1 % (0-10) Eosinophils % 2 % (0-5) Basophils % 2 % (0-3) Toxic Granulation Slight Toxic Vacuolation Slight Platelet Estimate Decreased (ADEQUATE) Lactic Acid Level 3.2 mmol/L (0.4-2.0) Procalcitonin < 0.10 ng/mL (0.00-0.10) Sodium Level 142 mmol/L (136-145) Potassium Level 4.1 mmol/L (3.5-5.1) Chloride Level 104 mmol/L (98-107) Carbon Dioxide Level 25 mmol/L (21-32) Anion Gap 13 (6-14) Blood Urea Nitrogen 15 mg/dL (8-26) Creatinine 1.6 mg/dL (0.7-1.3) Estimated GFR (Cockcroft-Gault) 50.3 BUN/Creatinine Ratio 9 (6-20) Glucose Level 140 mg/dL (70-99) Calcium Level 9.2 mg/dL (8.5-10.1) Magnesium Level 1.9 mg/dL (1.8-2.4) Total Bilirubin 0.7 mg/dL (0.2-1.0) Aspartate Amino Transf (AST/SGOT) 18 U/L (15-37) Alanine Aminotransferase (ALT/SGPT) 13 U/L (16-63) Alkaline Phosphatase 133 U/L (46-116) Creatine Kinase 73 U/L (39-308) Creatine Kinase MB (Mass) 2.0 ng/mL (0.0-3.6) Creatine Kinase MB Relative Index % (0-4) Troponin I Quantitative < 0.017 ng/mL (0.000-0.055) MG-Vkq-T-Type Natriuretic Peptide 1674 pg/mL (0-449) Total Protein 8.0 g/dL (6.4-8.2) Albumin 3.1 g/dL (3.4-5.0) Albumin/Globulin Ratio 0.6 (1.0-1.7) VTE Prophylaxis Ordered VTE Prophylaxis Devices: No VTE Pharmacological Prophylaxi: Yes Assessment/Plan Assessment/Plan acute exacerbation of COPD, steroids, nebs, no abx, no sputum or fever, pulm consult mild malnutrition in obesity, BMI 35 dementia, CAD, CKD 3 BPH, Hx of LELA, wNEFTALI Ceja MD Jul 03, 2019 20:48
[2019-07-03] MEDS: IPRATRPIUM/ALBUTEROL 0.5/2.5MG 3 ML NEBU. NEB SCH (21:04)
[2019-07-03 23:57] VITALS: BP 121/81
[2019-07-04] MEDS: VANCOMYCIN PER PHARMACY MC PRN ×4 (02:43→14:16)
--- NOTE | 2019-07-04 02:44 | NUR ---
Pharmacy Vancomycin Dosing Note S:Consulted to monitor and dose vancomycin started 07/04/19. O:DARYL WEBSTER is a 83 year old M with . Height: 5 feet, 3 inches Weight: 97.042069 kg [place] Body Weight: 56.90 Adjusted Body Weight: 72.94 Dosing Weight: Actual Other Antibiotics: LABS: Last BUN: 15 Last Creatinine: 1.6 Creatinine Clearance: 36 mL/min Last WBC: 6 Last Procalcitonin: <0.1 Tmax (past 24 hours): Microbiology: I/O: Drug Levels: Last level: on at Last dose given 07/04/19 at 0000 Vancomycin Dosing: Loading Dose: 2000 mg x1 Dosing Weight: Actual Target Trough: 10-20 A: Based on: WT AND CRCL P: 1. Begin Vancomycin 1500 mg IV q24h 2. Follow up Trough level on 07/05/19 at 2330 3. Pharmacy will continue to monitor, follow and adjust therapy as needed. JERRY MEDINA RPH, 07/04/19 0244 Signed: 07/04/19 at 0245 by JERRY MEDINA RPH PHA
[2019-07-04 03:10] VITALS: BP 130/83
--- NOTE | 2019-07-04 07:08 | EKG ---
[facility] [address] [place] [address] Test Date: 2019-07-03 Test Time: 16:52:12 Pat Name: DARYL WEBSTER Department: Room: Gender: M Sales Recruitment Specialist: : [id number] Requested By: SOL CH Order Number: [id number] Reading MD: Measurements Intervals [place] Rate: 69 P: -35 NV: 226 QRS: -54 QRSD: 172 T: 114 QT: 428 QTc: 465 Interpretive Statements SINUS RHYTHM PROLONGED NV INTERVAL ABNORMAL LEFT AXIS DEVIATION NON SPECIFIC INTRAVENTRICULAR BLOCK QRS(T) CONTOUR ABNORMALITY CONSISTENT WITH ANTEROSEPTAL INFARCT PROBABLY OLD CONSISTENT WITH INFERIOR INFARCT PROBABLY OLD ABNORMAL ECG No previous ECG available for comparison
[2019-07-04 07:15] VITALS: BP 133/71
[2019-07-04] MEDS: IPRATRPIUM/ALBUTEROL 0.5/2.5MG 3 ML NEBU. NEB SCH ×4 (07:16→19:59)
[2019-07-04 07:28] LABS: ALBUMIN 2.8 g/dL (3.4-5.0); ALBUMIN/GLOBULIN RATIO 0.6 (1.0-1.7); CALCIUM 8.8 mg/dL (8.5-10.1); CREATININE 1.7 mg/dL (0.7-1.3); GFR 46.8; POTASSIUM 4.2 mmol/L (3.5-5.1); TOTAL BILIRUBIN 0.7 mg/dL (0.2-1.0); TOTAL PROTEIN 7.3 g/dL (6.4-8.2)
[2019-07-04 07:33] LABS: BASO % 0 % (0-3); EOS % 1 % (0-3); HEMATOCRIT 50.7 % (39.0-53.0); HEMOGLOBIN 16.7 g/dL (13.0-17.5); LYMPH # 0.4 x10^3/uL (1.0-4.8); LYMPH % 6 % (24-48); MEAN CORPUSCULAR HEMOGLOBIN 32 pg (25-35); MEAN CORPUSCULAR HGB CONC 33 g/dL (31-37); MEAN CORPUSCULAR VOLUME 96 fL (79-100); MONO # 0.1 x10^3/uL (0.0-1.1); MONO % 1 % (0-9); NEUT # 6.6 x10^3/uL (1.8-7.7); NEUT % 92 % (31-73); PLATELET COUNT 117 x10^3/uL (140-400); RED BLOOD COUNT 5.27 x10^6/uL (4.30-5.70); RED CELL DISTRIBUTION WIDTH 16.5 % (11.5-14.5); WHITE BLOOD COUNT 7.2 x10^3/uL (4.0-11.0)
--- NOTE | 2019-07-04 09:26 | NUR ---
IP: Pt has a hx of + mrsa screen on 10/15/18. P to be in contact precautions until there are 2 negative screens 7 days apart. Initiate Nozin/CHG after nasal screen obtained.
[2019-07-04] MEDS: predniSONE 20 MG TABLET PO SCH (09:39)
[2019-07-04 11:03] VITALS: BP 128/75
--- NOTE | 2019-07-04 12:15 | PDOC ---
PROGRESS NOTES Chief Complaint Chief Complaint acute exacerbation of COPD, steroids, nebs, no abx, no sputum or fever, pulm consult mild malnutrition in obesity, BMI 35 dementia, w. history of behavioral d/o CAD, htn, lipids CKD 3 BPH, History of Present Illness History of Present Illness he is breathing easier less distress today more alert, but still poor recent recall, consistent with dementia, he thinks [place] is [address], he is not oriented 0/3, cannot recall names Vitals Vitals Vital Signs Date Time Temp Pulse Resp B/P (MAP) Pulse Ox O2 Delivery O2 Flow Rate FiO2 07/04/19 11:06 96 Nasal Cannula 4.0 07/04/19 11:03 98.0 69 20 128/75 (92) 98.0 Physical Exam General: Alert, Cooperative, Other (disoriented 0/3,. consistent with dementia) Heart: Regular rate, No murmurs Lungs: Crackles Abdomen: Normal bowel sounds, Soft Extremities: No cyanosis, Other Skin: No rashes, No significant lesion Labs LABS Laboratory Tests Test 07/03/19 17:45 07/03/19 18:20 07/03/19 18:30 07/03/19 21:08 White Blood Count 6.0 x10^3/uL (4.0-11.0) Red Blood Count 5.57 x10^6/uL (4.30-5.70) Hemoglobin 17.4 g/dL (13.0-17.5) Hematocrit 53.5 % (39.0-53.0) Mean Corpuscular Volume 96 fL (79-100) Mean Corpuscular Hemoglobin 31 pg (25-35) Mean Corpuscular Hemoglobin Concent 33 g/dL (31-37) Red Cell Distribution Width 16.5 % (11.5-14.5) Platelet Count 129 x10^3/uL (140-400) Neutrophils (%) (Auto) 91 % (31-73) Lymphocytes (%) (Auto) 6 % (24-48) Monocytes (%) (Auto) 2 % (0-9) Eosinophils (%) (Auto) 1 % (0-3) Basophils (%) (Auto) 1 % (0-3) Neutrophils # (Auto) 5.4 x10^3/uL (1.8-7.7) Lymphocytes # (Auto) 0.3 x10^3/uL (1.0-4.8) Monocytes # (Auto) 0.1 x10^3/uL (0.0-1.1) Eosinophils # (Auto) 0.1 x10^3/uL (0.0-0.7) Basophils # (Auto) 0.0 x10^3/uL (0.0-0.2) Segmented Neutrophils % 87 % (35-66) Band Neutrophils % 1 % (0-9) Lymphocytes % 7 % (24-48) Monocytes % 1 % (0-10) Eosinophils % 2 % (0-5) Basophils % 2 % (0-3) Toxic Granulation Slight Toxic Vacuolation Slight Platelet Estimate Decreased (ADEQUATE) Lactic Acid Level 3.2 mmol/L (0.4-2.0) 3.2 mmol/L (0.4-2.0) Procalcitonin < 0.10 ng/mL (0.00-0.10) Sodium Level 142 mmol/L (136-145) Potassium Level 4.1 mmol/L (3.5-5.1) Chloride Level 104 mmol/L (98-107) Carbon Dioxide Level 25 mmol/L (21-32) Anion Gap 13 (6-14) Blood Urea Nitrogen 15 mg/dL (8-26) Creatinine 1.6 mg/dL (0.7-1.3) Estimated GFR (Cockcroft-Gault) 50.3 BUN/Creatinine Ratio 9 (6-20) Glucose Level 140 mg/dL (70-99) Calcium Level 9.2 mg/dL (8.5-10.1) Magnesium Level 1.9 mg/dL (1.8-2.4) Total Bilirubin 0.7 mg/dL (0.2-1.0) Aspartate Amino Transf (AST/SGOT) 18 U/L (15-37) Alanine Aminotransferase (ALT/SGPT) 13 U/L (16-63) Alkaline Phosphatase 133 U/L (46-116) Creatine Kinase 73 U/L (39-308) Creatine Kinase MB (Mass) 2.0 ng/mL (0.0-3.6) Creatine Kinase MB Relative Index % (0-4) Troponin I Quantitative < 0.017 ng/mL (0.000-0.055) VZ-Trr-[id number]-Type Natriuretic Peptide 1674 pg/mL (0-449) Total Protein 8.0 g/dL (6.4-8.2) Albumin 3.1 g/dL (3.4-5.0) Albumin/Globulin Ratio 0.6 (1.0-1.7) Test 07/04/19 06:25 White Blood Count 7.2 x10^3/uL (4.0-11.0) Red Blood Count 5.27 x10^6/uL (4.30-5.70) Hemoglobin 16.7 g/dL (13.0-17.5) Hematocrit 50.7 % (39.0-53.0) Mean Corpuscular Volume 96 fL (79-100) Mean Corpuscular Hemoglobin 32 pg (25-35) Mean Corpuscular Hemoglobin Concent 33 g/dL (31-37) Red Cell Distribution Width 16.5 % (11.5-14.5) Platelet Count 117 x10^3/uL (140-400) Neutrophils (%) (Auto) 92 % (31-73) Lymphocytes (%) (Auto) 6 % (24-48) Monocytes (%) (Auto) 1 % (0-9) Eosinophils (%) (Auto) 1 % (0-3) Basophils (%) (Auto) 0 % (0-3) Neutrophils # (Auto) 6.6 x10^3/uL (1.8-7.7) Lymphocytes # (Auto) 0.4 x10^3/uL (1.0-4.8) Monocytes # (Auto) 0.1 x10^3/uL (0.0-1.1) Eosinophils # (Auto) 0.0 x10^3/uL (0.0-0.7) Basophils # (Auto) 0.0 x10^3/uL (0.0-0.2) Sodium Level 143 mmol/L (136-145) Potassium Level 4.2 mmol/L (3.5-5.1) Chloride Level 107 mmol/L (98-107) Carbon Dioxide Level 26 mmol/L (21-32) Anion Gap 10 (6-14) Blood Urea Nitrogen 19 mg/dL (8-26) Creatinine 1.7 mg/dL (0.7-1.3) Estimated GFR (Cockcroft-Gault) 46.8 BUN/Creatinine Ratio 11 (6-20) Glucose Level 130 mg/dL (70-99) Calcium Level 8.8 mg/dL (8.5-10.1) Total Bilirubin 0.7 mg/dL (0.2-1.0) Aspartate Amino Transf (AST/SGOT) 20 U/L (15-37) Alanine Aminotransferase (ALT/SGPT) 13 U/L (16-63) Alkaline Phosphatase 116 U/L (46-116) Total Protein 7.3 g/dL (6.4-8.2) Albumin 2.8 g/dL (3.4-5.0) Albumin/Globulin Ratio 0.6 (1.0-1.7) Review of Systems Review of Systems no n.v.d breathing better Assessment and Plan Assessmemt and Plan Problems Medical Problems: (1) Acute renal failure Status: Acute (2) COPD (chronic obstructive pulmonary disease) Status: Acute (3) Elevated lactic acid level Status: Acute Comment Review of Relevant I have reviewed the following items patrick (where applicable) has been applied. Labs Laboratory Tests Test 07/03/19 17:45 07/03/19 18:20 07/03/19 18:30 07/03/19 21:08 White Blood Count 6.0 x10^3/uL (4.0-11.0) Red Blood Count 5.57 x10^6/uL (4.30-5.70) Hemoglobin 17.4 g/dL (13.0-17.5) Hematocrit 53.5 % (39.0-53.0) Mean Corpuscular Volume 96 fL (79-100) Mean Corpuscular Hemoglobin 31 pg (25-35) Mean Corpuscular Hemoglobin Concent 33 g/dL (31-37) Red Cell Distribution Width 16.5 % (11.5-14.5) Platelet Count 129 x10^3/uL (140-400) Neutrophils (%) (Auto) 91 % (31-73) Lymphocytes (%) (Auto) 6 % (24-48) Monocytes (%) (Auto) 2 % (0-9) Eosinophils (%) (Auto) 1 % (0-3) Basophils (%) (Auto) 1 % (0-3) Neutrophils # (Auto) 5.4 x10^3/uL (1.8-7.7) Lymphocytes # (Auto) 0.3 x10^3/uL (1.0-4.8) Monocytes # (Auto) 0.1 x10^3/uL (0.0-1.1) Eosinophils # (Auto) 0.1 x10^3/uL (0.0-0.7) Basophils # (Auto) 0.0 x10^3/uL (0.0-0.2) Segmented Neutrophils % 87 % (35-66) Band Neutrophils % 1 % (0-9) Lymphocytes % 7 % (24-48) Monocytes % 1 % (0-10) Eosinophils % 2 % (0-5) Basophils % 2 % (0-3) Toxic Granulation Slight Toxic Vacuolation Slight Platelet Estimate Decreased (ADEQUATE) Lactic Acid Level 3.2 mmol/L (0.4-2.0) 3.2 mmol/L (0.4-2.0) Procalcitonin < 0.10 ng/mL (0.00-0.10) Sodium Level 142 mmol/L (136-145) Potassium Level 4.1 mmol/L (3.5-5.1) Chloride Level 104 mmol/L (98-107) Carbon Dioxide Level 25 mmol/L (21-32) Anion Gap 13 (6-14) Blood Urea Nitrogen 15 mg/dL (8-26) Creatinine 1.6 mg/dL (0.7-1.3) Estimated GFR (Cockcroft-Gault) 50.3 BUN/Creatinine Ratio 9 (6-20) Glucose Level 140 mg/dL (70-99) Calcium Level 9.2 mg/dL (8.5-10.1) Magnesium Level 1.9 mg/dL (1.8-2.4) Total Bilirubin 0.7 mg/dL (0.2-1.0) Aspartate Amino Transf (AST/SGOT) 18 U/L (15-37) Alanine Aminotransferase (ALT/SGPT) 13 U/L (16-63) Alkaline Phosphatase 133 U/L (46-116) Creatine Kinase 73 U/L (39-308) Creatine Kinase MB (Mass) 2.0 ng/mL (0.0-3.6) Creatine Kinase MB Relative Index % (0-4) Troponin I Quantitative < 0.017 ng/mL (0.000-0.055) JK-Xew-L-Type Natriuretic Peptide 1674 pg/mL (0-449) Total Protein 8.0 g/dL (6.4-8.2) Albumin 3.1 g/dL (3.4-5.0) Albumin/Globulin Ratio 0.6 (1.0-1.7) Test 07/04/19 06:25 White Blood Count 7.2 x10^3/uL (4.0-11.0) Red Blood Count 5.27 x10^6/uL (4.30-5.70) Hemoglobin 16.7 g/dL (13.0-17.5) Hematocrit 50.7 % (39.0-53.0) Mean Corpuscular Volume 96 fL (79-100) Mean Corpuscular Hemoglobin 32 pg (25-35) Mean Corpuscular Hemoglobin Concent 33 g/dL (31-37) Red Cell Distribution Width 16.5 % (11.5-14.5) Platelet Count 117 x10^3/uL (140-400) Neutrophils (%) (Auto) 92 % (31-73) Lymphocytes (%) (Auto) 6 % (24-48) Monocytes (%) (Auto) 1 % (0-9) Eosinophils (%) (Auto) 1 % (0-3) Basophils (%) (Auto) 0 % (0-3) Neutrophils # (Auto) 6.6 x10^3/uL (1.8-7.7) Lymphocytes # (Auto) 0.4 x10^3/uL (1.0-4.8) Monocytes # (Auto) 0.1 x10^3/uL (0.0-1.1) Eosinophils # (Auto) 0.0 x10^3/uL (0.0-0.7) Basophils # (Auto) 0.0 x10^3/uL (0.0-0.2) Sodium Level 143 mmol/L (136-145) Potassium Level 4.2 mmol/L (3.5-5.1) Chloride Level 107 mmol/L (98-107) Carbon Dioxide Level 26 mmol/L (21-32) Anion Gap 10 (6-14) Blood Urea Nitrogen 19 mg/dL (8-26) Creatinine 1.7 mg/dL (0.7-1.3) Estimated GFR (Cockcroft-Gault) 46.8 BUN/Creatinine Ratio 11 (6-20) Glucose Level 130 mg/dL (70-99) Calcium Level 8.8 mg/dL (8.5-10.1) Total Bilirubin 0.7 mg/dL (0.2-1.0) Aspartate Amino Transf (AST/SGOT) 20 U/L (15-37) Alanine Aminotransferase (ALT/SGPT) 13 U/L (16-63) Alkaline Phosphatase 116 U/L (46-116) Total Protein 7.3 g/dL (6.4-8.2) Albumin 2.8 g/dL (3.4-5.0) Albumin/Globulin Ratio 0.6 (1.0-1.7) Laboratory Tests Test 07/03/19 17:45 07/03/19 18:20 07/03/19 18:30 07/03/19 21:08 White Blood Count 6.0 x10^3/uL (4.0-11.0) Red Blood Count 5.57 x10^6/uL (4.30-5.70) Hemoglobin 17.4 g/dL (13.0-17.5) Hematocrit 53.5 % (39.0-53.0) Mean Corpuscular Volume 96 fL (79-100) Mean Corpuscular Hemoglobin 31 pg (25-35) Mean Corpuscular Hemoglobin Concent 33 g/dL (31-37) Red Cell Distribution Width 16.5 % (11.5-14.5) Platelet Count 129 x10^3/uL (140-400) Neutrophils (%) (Auto) 91 % (31-73) Lymphocytes (%) (Auto) 6 % (24-48) Monocytes (%) (Auto) 2 % (0-9) Eosinophils (%) (Auto) 1 % (0-3) Basophils (%) (Auto) 1 % (0-3) Neutrophils # (Auto) 5.4 x10^3/uL (1.8-7.7) Lymphocytes # (Auto) 0.3 x10^3/uL (1.0-4.8) Monocytes # (Auto) 0.1 x10^3/uL (0.0-1.1) Eosinophils # (Auto) 0.1 x10^3/uL (0.0-0.7) Basophils # (Auto) 0.0 x10^3/uL (0.0-0.2) Segmented Neutrophils % 87 % (35-66) Band Neutrophils % 1 % (0-9) Lymphocytes % 7 % (24-48) Monocytes % 1 % (0-10) Eosinophils % 2 % (0-5) Basophils % 2 % (0-3) Toxic Granulation Slight Toxic Vacuolation Slight Platelet Estimate Decreased (ADEQUATE) Lactic Acid Level 3.2 mmol/L (0.4-2.0) 3.2 mmol/L (0.4-2.0) Procalcitonin < 0.10 ng/mL (0.00-0.10) Sodium Level 142 mmol/L (136-145) Potassium Level 4.1 mmol/L (3.5-5.1) Chloride Level 104 mmol/L (98-107) Carbon Dioxide Level 25 mmol/L (21-32) Anion Gap 13 (6-14) Blood Urea Nitrogen 15 mg/dL (8-26) Creatinine 1.6 mg/dL (0.7-1.3) Estimated GFR (Cockcroft-Gault) 50.3 BUN/Creatinine Ratio 9 (6-20) Glucose Level 140 mg/dL (70-99) Calcium Level 9.2 mg/dL (8.5-10.1) Magnesium Level 1.9 mg/dL (1.8-2.4) Total Bilirubin 0.7 mg/dL (0.2-1.0) Aspartate Amino Transf (AST/SGOT) 18 U/L (15-37) Alanine Aminotransferase (ALT/SGPT) 13 U/L (16-63) Alkaline Phosphatase 133 U/L (46-116) Creatine Kinase 73 U/L (39-308) Creatine Kinase MB (Mass) 2.0 ng/mL (0.0-3.6) Creatine Kinase MB Relative Index % (0-4) Troponin I Quantitative < 0.017 ng/mL (0.000-0.055) PO-Yhu-E-Type Natriuretic Peptide 1674 pg/mL (0-449) Total Protein 8.0 g/dL (6.4-8.2) Albumin 3.1 g/dL (3.4-5.0) Albumin/Globulin Ratio 0.6 (1.0-1.7) Test 07/04/19 06:25 White Blood Count 7.2 x10^3/uL (4.0-11.0) Red Blood Count 5.27 x10^6/uL (4.30-5.70) Hemoglobin 16.7 g/dL (13.0-17.5) Hematocrit 50.7 % (39.0-53.0) Mean Corpuscular Volume 96 fL (79-100) Mean Corpuscular Hemoglobin 32 pg (25-35) Mean Corpuscular Hemoglobin Concent 33 g/dL (31-37) Red Cell Distribution Width 16.5 % (11.5-14.5) Platelet Count 117 x10^3/uL (140-400) Neutrophils (%) (Auto) 92 % (31-73) Lymphocytes (%) (Auto) 6 % (24-48) Monocytes (%) (Auto) 1 % (0-9) Eosinophils (%) (Auto) 1 % (0-3) Basophils (%) (Auto) 0 % (0-3) Neutrophils # (Auto) 6.6 x10^3/uL (1.8-7.7) Lymphocytes # (Auto) 0.4 x10^3/uL (1.0-4.8) Monocytes # (Auto) 0.1 x10^3/uL (0.0-1.1) Eosinophils # (Auto) 0.0 x10^3/uL (0.0-0.7) Basophils # (Auto) 0.0 x10^3/uL (0.0-0.2) Sodium Level 143 mmol/L (136-145) Potassium Level 4.2 mmol/L (3.5-5.1) Chloride Level 107 mmol/L (98-107) Carbon Dioxide Level 26 mmol/L (21-32) Anion Gap 10 (6-14) Blood Urea Nitrogen 19 mg/dL (8-26) Creatinine 1.7 mg/dL (0.7-1.3) Estimated GFR (Cockcroft-Gault) 46.8 BUN/Creatinine Ratio 11 (6-20) Glucose Level 130 mg/dL (70-99) Calcium Level 8.8 mg/dL (8.5-10.1) Total Bilirubin 0.7 mg/dL (0.2-1.0) Aspartate Amino Transf (AST/SGOT) 20 U/L (15-37) Alanine Aminotransferase (ALT/SGPT) 13 U/L (16-63) Alkaline Phosphatase 116 U/L (46-116) Total Protein 7.3 g/dL (6.4-8.2) Albumin 2.8 g/dL (3.4-5.0) Albumin/Globulin Ratio 0.6 (1.0-1.7) Medications Current Medications Albuterol/ Ipratropium (Duoneb) 3 ml 1X ONCE NEB Last administered on 07/03/19at 16:35; Start 07/03/19 at 16:30; Stop 07/03/19 at 16:31; Status DC Methylprednisolone Sodium Succinate (SOLU-Medrol 125MG VIAL) 125 mg 1X ONCE IV Last administered on 07/03/19at 18:11; Start 07/03/19 at 16:30; Stop 07/03/19 at 16:31; Status DC Sodium Chloride 1,000 ml @ 1,000 mls/hr 1X ONCE IV ; Start 07/03/19 at 20:00; Stop 07/03/19 at 20:59; Status DC Sodium Chloride 1,000 ml @ 1,000 mls/hr 1X ONCE IV ; Start 07/03/19 at 20:00; Stop 07/03/19 at 20:59; Status DC Ondansetron HCl (Zofran) 4 mg PRN Q8HRS PRN IV NAUSEA/VOMITING; Start 07/03/19 at 20:00; Stop 07/04/19 at 19:59 Morphine Sulfate (Morphine Sulfate) 4 mg PRN Q2HR PRN IV PAIN; Start 07/03/19 at 20:00; Stop 07/04/19 at 19:59 Acetaminophen (Tylenol) 650 mg PRN Q4HRS PRN PO FEVER; Start 07/03/19 at 20:00; Stop 07/04/19 at 19:59 Albuterol/ Ipratropium (Duoneb) 3 ml RTQID NEB Last administered on 07/04/19at 11:06; Start 07/03/19 at 20:00; Stop 07/04/19 at 19:59 Levofloxacin/ Dextrose 100 ml @ 100 mls/hr 1X ONCE IV Last administered on 07/03/19at 22:44; Start 07/03/19 at 20:00; Stop 07/03/19 at 20:59; Status DC Vancomycin HCl (Vanco Per Pharmacy) 1 each PRN DAILY PRN MC SEE COMMENTS Last administered on 07/04/19at 12:00; Start 07/03/19 at 20:00 Vancomycin HCl 2 gm/Sodium Chloride 500 ml @ 250 mls/hr 1X ONCE IV Last administered on 07/04/19at 00:11; Start 07/03/19 at 20:30; Stop 07/03/19 at 22:29; Status DC Prednisone (Prednisone) 40 mg DAILY PO Last administered on 07/04/19at 09:39; Start 07/04/19 at 09:00 Vancomycin HCl 1.5 gm/Sodium Chloride 500 ml @ 250 mls/hr Q24H IV ; Start 07/05/19 at 00:00 Vancomycin HCl (Vancomycin Trough Level) 1 each 1X ONCE MC ; Start 07/05/19 at 23:30; Stop 07/05/19 at 23:31 Lactobacillus Rhamnosus (Culturelle) 1 cap BID PO ; Start 07/04/19 at 21:00 Multivitamins (Thera M Plus) 1 tab DAILY PO ; Start 07/04/19 at 12:00 Active Scripts Active Proventil Hfa (Albuterol Sulfate) 6.7 Gm Hfa.aer.ad 1 Puff INH PRN Q6HRS PRN Prednisone 50 Mg Tablet 1 Tab PO DAILY Prednisone (Prednisone) 10 Mg Tablet 10 Mg PO DAILY 2 Days Prednisone 20 Mg Tablet 1 Tab PO BID 2 Days Prednisone 50 Mg Tablet 50 Mg PO DAILY 3 Days Hydrocodone-Apap 5-325 (Hydrocodone Bit/Acetaminophen) 1 Tab Tablet 1 Tab PO PRN Q4HRS PRN 5 Days Doxycycline Hyclate 100 Mg Tablet 100 Mg PO BID 2 Days Haloperidol 2 Mg Tablet 1 Tab PO BID Olanzapine 2.5 Mg Tablet 2.5 Mg PO DAILY MDD 1 30 Days Amlodipine Besylate 10 Mg Tablet 10 Mg PO DAILY MDD 1 30 Days Hydralazine Hcl 25 Mg Tablet 25 Mg PO TID MDD 1 30 Days Colcrys (Colchicine) 0.6 Mg Tablet 0.6 Mg PO DAILY 30 Days Aspirin Ec (Aspirin) 81 Mg Tablet.dr 81 Mg PO DAILYWBKFT 30 Days Duoneb 0.5-3(2.5) Mg/3 Ml (Albuterol/Ipratropium) 3 Ml Ampul.neb 3 Ml NEB RTQID 30 Days Metoprolol Tartrate 50 Mg Tablet 2 Tab PO BID 30 Days Reported Nystatin 15 Gm Powder 1 Alberto TP BID Milk Of Magnesia (Magnesium Hydroxide) 400 Mg/5 Ml Oral.susp 400 Mg PO PRN DAILY PRN Mag-Oxide (Magnesium Oxide) 400 Mg Tablet 1 Tab PO BID Losartan Potassium 100 Mg Tablet 100 Mg PO DAILY Lasix (Furosemide) 20 Mg Tablet 1 Tab PO DAILY Potassium Chloride 20 Meq Tablet.er 20 Meq PO DAILY Miralax (Polyethylene Glycol 3350) 17 Gm Powd.pack 1 Packet PO PRN DAILY PRN Tylenol (Acetaminophen) 325 Mg Tablet 1 Tab PO PRN Q6HRS PRN Famotidine 20 Mg Tablet 20 Mg PO HS Vitals/I & O Vital Sign - Last 24 Hours 07/03/19 07/03/19 07/03/19 07/03/19 15:52 16:38 17:30 18:30 Temp 98.1 98.1 Pulse 69 68 68 Resp 20 20 20 B/P (MAP) 161/100 (120) 136/88 (104) 121/75 (90) Pulse Ox 97 97 94 95 O2 Delivery Nasal Cannula Nasal Cannula Nasal Cannula Nasal Cannula O2 Flow Rate 4.0 4.0 4.0 4.0 07/03/19 07/03/19 07/03/19 07/03/19 19:58 20:45 21:05 23:57 Temp 97.6 97.4 97.6 97.4 Pulse 70 72 Resp 16 20 B/P (MAP) 119/77 (91) 121/81 (94) Pulse Ox 98 97 100 O2 Delivery Nasal Cannula Nasal Cannula Nasal Cannula Nasal Cannula O2 Flow Rate 4.0 4.0 4.0 4.0 07/04/19 07/04/19 07/04/19 07/04/19 03:10 07:15 07:18 08:00 Temp 97.4 97.9 97.4 97.9 Pulse 70 71 Resp 20 20 B/P (MAP) 130/83 (99) 133/71 (91) Pulse Ox 100 99 100 O2 Delivery Nasal Cannula Nasal Cannula Nasal Cannula Nasal Cannula O2 Flow Rate 4.0 4.0 4.0 3.0 07/04/19 07/04/19 11:03 11:06 Temp 98.0 98.0 Pulse 69 Resp 20 B/P (MAP) 128/75 (92) Pulse Ox 98 96 O2 Delivery Nasal Cannula Nasal Cannula O2 Flow Rate 4.0 4.0 Intake and Output 07/03/19 07/03/19 07/04/19 15:00 23:00 07:00 Intake Total 480 ml 300 ml Balance 480 ml 300 ml NEFTALI BURGER MD Jul 04, 2019 12:15
[2019-07-04] MEDS: MULTIVITAMIN with MINERAL TABLET. PO SCH (12:57)
--- NOTE | 2019-07-04 13:23 | PDOC ---
PULMONARY PROGRESS NOTES Vitals Vital Signs Date Time Temp Pulse Resp B/P (MAP) Pulse Ox O2 Delivery O2 Flow Rate FiO2 07/04/19 11:06 96 Nasal Cannula 4.0 07/04/19 11:03 98.0 69 20 128/75 (92) 98.0 General: Alert, No acute distress Lungs: Crackles Cardiovascular: S1, S2 Abdomen: Soft Extremities: No Edema Labs Laboratory Tests Test 07/03/19 17:45 07/03/19 18:20 07/03/19 18:30 07/03/19 21:08 White Blood Count 6.0 x10^3/uL (4.0-11.0) Red Blood Count 5.57 x10^6/uL (4.30-5.70) Hemoglobin 17.4 g/dL (13.0-17.5) Hematocrit 53.5 % (39.0-53.0) Mean Corpuscular Volume 96 fL (79-100) Mean Corpuscular Hemoglobin 31 pg (25-35) Mean Corpuscular Hemoglobin Concent 33 g/dL (31-37) Red Cell Distribution Width 16.5 % (11.5-14.5) Platelet Count 129 x10^3/uL (140-400) Neutrophils (%) (Auto) 91 % (31-73) Lymphocytes (%) (Auto) 6 % (24-48) Monocytes (%) (Auto) 2 % (0-9) Eosinophils (%) (Auto) 1 % (0-3) Basophils (%) (Auto) 1 % (0-3) Neutrophils # (Auto) 5.4 x10^3/uL (1.8-7.7) Lymphocytes # (Auto) 0.3 x10^3/uL (1.0-4.8) Monocytes # (Auto) 0.1 x10^3/uL (0.0-1.1) Eosinophils # (Auto) 0.1 x10^3/uL (0.0-0.7) Basophils # (Auto) 0.0 x10^3/uL (0.0-0.2) Segmented Neutrophils % 87 % (35-66) Band Neutrophils % 1 % (0-9) Lymphocytes % 7 % (24-48) Monocytes % 1 % (0-10) Eosinophils % 2 % (0-5) Basophils % 2 % (0-3) Toxic Granulation Slight Toxic Vacuolation Slight Platelet Estimate Decreased (ADEQUATE) Lactic Acid Level 3.2 mmol/L (0.4-2.0) 3.2 mmol/L (0.4-2.0) Procalcitonin < 0.10 ng/mL (0.00-0.10) Sodium Level 142 mmol/L (136-145) Potassium Level 4.1 mmol/L (3.5-5.1) Chloride Level 104 mmol/L (98-107) Carbon Dioxide Level 25 mmol/L (21-32) Anion Gap 13 (6-14) Blood Urea Nitrogen 15 mg/dL (8-26) Creatinine 1.6 mg/dL (0.7-1.3) Estimated GFR (Cockcroft-Gault) 50.3 BUN/Creatinine Ratio 9 (6-20) Glucose Level 140 mg/dL (70-99) Calcium Level 9.2 mg/dL (8.5-10.1) Magnesium Level 1.9 mg/dL (1.8-2.4) Total Bilirubin 0.7 mg/dL (0.2-1.0) Aspartate Amino Transf (AST/SGOT) 18 U/L (15-37) Alanine Aminotransferase (ALT/SGPT) 13 U/L (16-63) Alkaline Phosphatase 133 U/L (46-116) Creatine Kinase 73 U/L (39-308) Creatine Kinase MB (Mass) 2.0 ng/mL (0.0-3.6) Creatine Kinase MB Relative Index % (0-4) Troponin I Quantitative < 0.017 ng/mL (0.000-0.055) JZ-Dsg-V-Type Natriuretic Peptide 1674 pg/mL (0-449) Total Protein 8.0 g/dL (6.4-8.2) Albumin 3.1 g/dL (3.4-5.0) Albumin/Globulin Ratio 0.6 (1.0-1.7) Test 07/04/19 06:25 White Blood Count 7.2 x10^3/uL (4.0-11.0) Red Blood Count 5.27 x10^6/uL (4.30-5.70) Hemoglobin 16.7 g/dL (13.0-17.5) Hematocrit 50.7 % (39.0-53.0) Mean Corpuscular Volume 96 fL (79-100) Mean Corpuscular Hemoglobin 32 pg (25-35) Mean Corpuscular Hemoglobin Concent 33 g/dL (31-37) Red Cell Distribution Width 16.5 % (11.5-14.5) Platelet Count 117 x10^3/uL (140-400) Neutrophils (%) (Auto) 92 % (31-73) Lymphocytes (%) (Auto) 6 % (24-48) Monocytes (%) (Auto) 1 % (0-9) Eosinophils (%) (Auto) 1 % (0-3) Basophils (%) (Auto) 0 % (0-3) Neutrophils # (Auto) 6.6 x10^3/uL (1.8-7.7) Lymphocytes # (Auto) 0.4 x10^3/uL (1.0-4.8) Monocytes # (Auto) 0.1 x10^3/uL (0.0-1.1) Eosinophils # (Auto) 0.0 x10^3/uL (0.0-0.7) Basophils # (Auto) 0.0 x10^3/uL (0.0-0.2) Sodium Level 143 mmol/L (136-145) Potassium Level 4.2 mmol/L (3.5-5.1) Chloride Level 107 mmol/L (98-107) Carbon Dioxide Level 26 mmol/L (21-32) Anion Gap 10 (6-14) Blood Urea Nitrogen 19 mg/dL (8-26) Creatinine 1.7 mg/dL (0.7-1.3) Estimated GFR (Cockcroft-Gault) 46.8 BUN/Creatinine Ratio 11 (6-20) Glucose Level 130 mg/dL (70-99) Calcium Level 8.8 mg/dL (8.5-10.1) Total Bilirubin 0.7 mg/dL (0.2-1.0) Aspartate Amino Transf (AST/SGOT) 20 U/L (15-37) Alanine Aminotransferase (ALT/SGPT) 13 U/L (16-63) Alkaline Phosphatase 116 U/L (46-116) Total Protein 7.3 g/dL (6.4-8.2) Albumin 2.8 g/dL (3.4-5.0) Albumin/Globulin Ratio 0.6 (1.0-1.7) Laboratory Tests Test 07/03/19 17:45 07/03/19 18:20 07/03/19 18:30 07/03/19 21:08 White Blood Count 6.0 x10^3/uL (4.0-11.0) Red Blood Count 5.57 x10^6/uL (4.30-5.70) Hemoglobin 17.4 g/dL (13.0-17.5) Hematocrit 53.5 % (39.0-53.0) Mean Corpuscular Volume 96 fL (79-100) Mean Corpuscular Hemoglobin 31 pg (25-35) Mean Corpuscular Hemoglobin Concent 33 g/dL (31-37) Red Cell Distribution Width 16.5 % (11.5-14.5) Platelet Count 129 x10^3/uL (140-400) Neutrophils (%) (Auto) 91 % (31-73) Lymphocytes (%) (Auto) 6 % (24-48) Monocytes (%) (Auto) 2 % (0-9) Eosinophils (%) (Auto) 1 % (0-3) Basophils (%) (Auto) 1 % (0-3) Neutrophils # (Auto) 5.4 x10^3/uL (1.8-7.7) Lymphocytes # (Auto) 0.3 x10^3/uL (1.0-4.8) Monocytes # (Auto) 0.1 x10^3/uL (0.0-1.1) Eosinophils # (Auto) 0.1 x10^3/uL (0.0-0.7) Basophils # (Auto) 0.0 x10^3/uL (0.0-0.2) Segmented Neutrophils % 87 % (35-66) Band Neutrophils % 1 % (0-9) Lymphocytes % 7 % (24-48) Monocytes % 1 % (0-10) Eosinophils % 2 % (0-5) Basophils % 2 % (0-3) Toxic Granulation Slight Toxic Vacuolation Slight Platelet Estimate Decreased (ADEQUATE) Lactic Acid Level 3.2 mmol/L (0.4-2.0) 3.2 mmol/L (0.4-2.0) Procalcitonin < 0.10 ng/mL (0.00-0.10) Sodium Level 142 mmol/L (136-145) Potassium Level 4.1 mmol/L (3.5-5.1) Chloride Level 104 mmol/L (98-107) Carbon Dioxide Level 25 mmol/L (21-32) Anion Gap 13 (6-14) Blood Urea Nitrogen 15 mg/dL (8-26) Creatinine 1.6 mg/dL (0.7-1.3) Estimated GFR (Cockcroft-Gault) 50.3 BUN/Creatinine Ratio 9 (6-20) Glucose Level 140 mg/dL (70-99) Calcium Level 9.2 mg/dL (8.5-10.1) Magnesium Level 1.9 mg/dL (1.8-2.4) Total Bilirubin 0.7 mg/dL (0.2-1.0) Aspartate Amino Transf (AST/SGOT) 18 U/L (15-37) Alanine Aminotransferase (ALT/SGPT) 13 U/L (16-63) Alkaline Phosphatase 133 U/L (46-116) Creatine Kinase 73 U/L (39-308) Creatine Kinase MB (Mass) 2.0 ng/mL (0.0-3.6) Creatine Kinase MB Relative Index % (0-4) Troponin I Quantitative < 0.017 ng/mL (0.000-0.055) ML-Tpo-A-Type Natriuretic Peptide 1674 pg/mL (0-449) Total Protein 8.0 g/dL (6.4-8.2) Albumin 3.1 g/dL (3.4-5.0) Albumin/Globulin Ratio 0.6 (1.0-1.7) Test 07/04/19 06:25 White Blood Count 7.2 x10^3/uL (4.0-11.0) Red Blood Count 5.27 x10^6/uL (4.30-5.70) Hemoglobin 16.7 g/dL (13.0-17.5) Hematocrit 50.7 % (39.0-53.0) Mean Corpuscular Volume 96 fL (79-100) Mean Corpuscular Hemoglobin 32 pg (25-35) Mean Corpuscular Hemoglobin Concent 33 g/dL (31-37) Red Cell Distribution Width 16.5 % (11.5-14.5) Platelet Count 117 x10^3/uL (140-400) Neutrophils (%) (Auto) 92 % (31-73) Lymphocytes (%) (Auto) 6 % (24-48) Monocytes (%) (Auto) 1 % (0-9) Eosinophils (%) (Auto) 1 % (0-3) Basophils (%) (Auto) 0 % (0-3) Neutrophils # (Auto) 6.6 x10^3/uL (1.8-7.7) Lymphocytes # (Auto) 0.4 x10^3/uL (1.0-4.8) Monocytes # (Auto) 0.1 x10^3/uL (0.0-1.1) Eosinophils # (Auto) 0.0 x10^3/uL (0.0-0.7) Basophils # (Auto) 0.0 x10^3/uL (0.0-0.2) Sodium Level 143 mmol/L (136-145) Potassium Level 4.2 mmol/L (3.5-5.1) Chloride Level 107 mmol/L (98-107) Carbon Dioxide Level 26 mmol/L (21-32) Anion Gap 10 (6-14) Blood Urea Nitrogen 19 mg/dL (8-26) Creatinine 1.7 mg/dL (0.7-1.3) Estimated GFR (Cockcroft-Gault) 46.8 BUN/Creatinine Ratio 11 (6-20) Glucose Level 130 mg/dL (70-99) Calcium Level 8.8 mg/dL (8.5-10.1) Total Bilirubin 0.7 mg/dL (0.2-1.0) Aspartate Amino Transf (AST/SGOT) 20 U/L (15-37) Alanine Aminotransferase (ALT/SGPT) 13 U/L (16-63) Alkaline Phosphatase 116 U/L (46-116) Total Protein 7.3 g/dL (6.4-8.2) Albumin 2.8 g/dL (3.4-5.0) Albumin/Globulin Ratio 0.6 (1.0-1.7) Medications Active Scripts Medications Dose Route/Sig Max Daily Dose Days Date Category Proventil Hfa (Albuterol Sulfate) 6.7 Gm Hfa.aer.ad 1 Puff INH PRN Q6HRS PRN 03/10/19 Rx Prednisone 50 Mg Tablet 1 Tab PO DAILY 03/10/19 Rx Prednisone (Prednisone) 10 Mg Tablet 10 Mg PO DAILY 2 01/15/19 Rx Prednisone 20 Mg Tablet 1 Tab PO BID 2 01/15/19 Rx Prednisone 50 Mg Tablet 50 Mg PO DAILY 3 01/15/19 Rx Hydrocodone-Apap 5-325 (Hydrocodone Bit/Acetaminophen) 1 Tab Tablet 1 Tab PO PRN Q4HRS PRN 5 01/15/19 Rx Doxycycline Hyclate 100 Mg Tablet 100 Mg PO BID 2 01/15/19 Rx Haloperidol 2 Mg Tablet 1 Tab PO BID 10/22/18 Rx Olanzapine 2.5 Mg Tablet 2.5 Mg PO DAILY MDD 1 30 10/22/18 Rx Amlodipine Besylate 10 Mg Tablet 10 Mg PO DAILY MDD 1 30 10/22/18 Rx Hydralazine Hcl 25 Mg Tablet 25 Mg PO TID MDD 1 30 10/22/18 Rx Nystatin 15 Gm Powder 1 Alberto TP BID 10/17/18 Reported Milk Of Magnesia (Magnesium Hydroxide) 400 Mg/5 Ml Oral.susp 400 Mg PO PRN DAILY PRN 10/17/18 Reported Mag-Oxide (Magnesium Oxide) 400 Mg Tablet 1 Tab PO BID 10/17/18 Reported Losartan Potassium 100 Mg Tablet 100 Mg PO DAILY 10/17/18 Reported Lasix (Furosemide) 20 Mg Tablet 1 Tab PO DAILY 10/17/18 Reported Potassium Chloride 20 Meq Tablet.er 20 Meq PO DAILY 10/15/18 Reported Colcrys (Colchicine) 0.6 Mg Tablet 0.6 Mg PO DAILY 30 01/03/18 Rx Aspirin Ec (Aspirin) 81 Mg Tablet.dr 81 Mg PO DAILYWBKFT 30 01/03/18 Rx Duoneb 0.5-3(2.5) Mg/3 Ml (Albuterol/Ipratropium) 3 Ml Ampul.neb 3 Ml NEB RTQID 30 01/03/18 Rx Metoprolol Tartrate 50 Mg Tablet 2 Tab PO BID 30 01/03/18 Rx Miralax (Polyethylene Glycol 3350) 17 Gm Powd.pack 1 Packet PO PRN DAILY PRN 03/09/16 Reported Tylenol (Acetaminophen) 325 Mg Tablet 1 Tab PO PRN Q6HRS PRN 03/09/16 Reported Famotidine 20 Mg Tablet 20 Mg PO HS 03/05/16 Reported Impression . full note dictated acute resp failure Possible pneumonia aecopd ROSE GIRALDO MD Jul 04, 2019 13:23
--- NOTE | 2019-07-04 14:54 | NUR ---
SW following pt for dc planning. Chart reviewed and SW confirmed with Cindy, Pt is LTC resident at [facility], , fax: [phone]. SW will continue to follow.
[2019-07-04 15:07] VITALS: BP 126/81
--- NOTE | 2019-07-04 16:50 | NUR ---
Wound care: Patient seen per wound care consult. See wound assessment. Patient has bilateral lower extremity VLU's. Patient daughter stated patient has had ulcers intermittently for years. Wounds are cleansed and assessed. Recommendations for Xeroform gauze, ABD pads, and kerlix. Dressings applied and patient tolerated well. There are no other wounds noted upon complete head to toe assessment. Dressing change instructions left in room. Bed lowered and call light in reach. Wound care will follow patient.
--- NOTE | 2019-07-04 17:08 | CONS ---
DATE OF CONSULTATION: 07/04/2019 ATTENDING PHYSICIAN: Dr. Stefany Nayak. REASON FOR CONSULTATION: The patient seen in pulmonary consultation at the request of Dr. Nayak for abnormal x-ray. HISTORY OF PRESENT ILLNESS: The patient is a poor historian. He is an 84-year-old, not sure if he resides at a fdc or home. He states he resides in both. I have reviewed the ER documentation, the patient presented with a history of coronary artery disease, COPD, anemia, renal insufficiency with wheezing, shortness of breath had been ongoing for a couple of days. He apparently resides at a fdc and was brought into the Emergency Department for the above reasons. He does admit to having a cough, mostly nonproductive, wheezing and being short of breath. He does not walk much. He does not wear oxygen at home. No metered dose inhalers. He claims that he has never smoked. His x-ray had revealed some chronic changes. On chest x-ray, he has not had a CT chest. He was last admitted back in 01/13. At that time, he was seen by my associate, Dr. Li, for acute respiratory failure, which was felt to be secondary to acute exacerbation of COPD, acute on chronic diastolic heart failure. PAST MEDICAL HISTORY: Chronic AFib, CHF, COPD, arthritis, gastroesophageal reflux, hypertension, TIA, and dementia. ALLERGIES: PENICILLIN. CURRENT MEDICATION: List was reviewed. SOCIAL HISTORY: He resides at a fdc. He states he has never smoked in the past but in the documentation apparently he quit 20 years ago. FAMILY HISTORY: Unknown. REVIEW OF SYSTEMS: As mentioned in the history of present illness, otherwise other systems could not be adequately reviewed. The patient is confused and has some underlying dementia. PHYSICAL EXAMINATION: GENERAL: The patient appeared to be his stated age. He was in no respiratory distress, on 3-4 liters of oxygen, saturations 96%-100%. HEENT: Eyes, the sclerae were nonicteric. NECK: Jugular venous distention was not elevated. No lymphadenopathy. CHEST: Full expansion. LUNGS: Expiratory wheeze, bilateral rhonchi, coarse breath sounds. CARDIOVASCULAR: Regular rate and rhythm with S1, S2, no S3. ABDOMEN: Soft, nontender, nondistended, and obese. EXTREMITIES: No clubbing, cyanosis. Minimal edema. NEUROLOGIC: The patient was awake, alert, following commands. A detailed neuro exam was not performed. LABORATORY DATA: White count was normal. Hemoglobin and hematocrit were noted. Electrolytes were noted. BUN and creatinine was slightly elevated. Albumin was low. IMPRESSION: 1. Progressive dyspnea, multifactorial. 2. Acute respiratory failure. 3. Suspect acute exacerbation of chronic obstructive pulmonary disease. 4. Possible pneumonia. 5. Dementia. 6. History of tobacco dependence, in remission. 7. Chronic heart failure. 8. Hypertension. 9. Suspect acute on chronic diastolic heart failure. 10. Chronic renal insufficiency. PLAN: 1. We will continue to treat empirically for pneumonia. The patient is currently on vancomycin. He has received Levaquin. We will add Zosyn for now. 2. Obtain CT chest. 3. Steroids. 4. Continue home medications. 5. Bronchodilators. 6. Oxygen supplementation. I do appreciate the privilege in sharing in the patient's care. ROSE GIRALDO MD DR: TEO/nts JOB#: [id number] / [id number]
[2019-07-04 19:45] VITALS: BP 108/66
[2019-07-04] MEDS: LACTOBACILLUS RHAMNOSUS GG 1 CAPSULE. PO SCH (22:07)
[2019-07-04 23:50] VITALS: BP 113/65
[2019-07-04] MEDS: VANCOMYCIN 1.5 GM in IV NORMAL SALINE 500ML BAG 500 ML IV SCH (23:51)
[2019-07-05 03:51] VITALS: BP 123/67
[2019-07-05] MEDS: IPRATRPIUM/ALBUTEROL 0.5/2.5MG 3 ML NEBU. NEB SCH ×4 (08:39→20:25)
--- NOTE | 2019-07-05 08:57 | PDOC ---
PULMONARY PROGRESS NOTES Subjective pt not more soa at times confused Vitals Vital Signs Date Time Temp Pulse Resp B/P (MAP) Pulse Ox O2 Delivery O2 Flow Rate FiO2 07/05/19 08:40 97 Room Air 07/05/19 03:51 98.3 77 18 123/67 (85) 98.3 07/04/19 23:50 4.0 ROS: No Nausea, No Chest Pain, No Abdominal Pain, No Increase Cough General: Alert, No acute distress, Confused Lungs: Crackles Cardiovascular: S1, S2 Abdomen: Soft Neuro Exam: Alert Extremities: No Edema Skin: Warm Labs Laboratory Tests Test 07/03/19 17:45 07/03/19 18:20 07/03/19 18:30 07/03/19 21:08 White Blood Count 6.0 x10^3/uL (4.0-11.0) Red Blood Count 5.57 x10^6/uL (4.30-5.70) Hemoglobin 17.4 g/dL (13.0-17.5) Hematocrit 53.5 % (39.0-53.0) Mean Corpuscular Volume 96 fL (79-100) Mean Corpuscular Hemoglobin 31 pg (25-35) Mean Corpuscular Hemoglobin Concent 33 g/dL (31-37) Red Cell Distribution Width 16.5 % (11.5-14.5) Platelet Count 129 x10^3/uL (140-400) Neutrophils (%) (Auto) 91 % (31-73) Lymphocytes (%) (Auto) 6 % (24-48) Monocytes (%) (Auto) 2 % (0-9) Eosinophils (%) (Auto) 1 % (0-3) Basophils (%) (Auto) 1 % (0-3) Neutrophils # (Auto) 5.4 x10^3/uL (1.8-7.7) Lymphocytes # (Auto) 0.3 x10^3/uL (1.0-4.8) Monocytes # (Auto) 0.1 x10^3/uL (0.0-1.1) Eosinophils # (Auto) 0.1 x10^3/uL (0.0-0.7) Basophils # (Auto) 0.0 x10^3/uL (0.0-0.2) Segmented Neutrophils % 87 % (35-66) Band Neutrophils % 1 % (0-9) Lymphocytes % 7 % (24-48) Monocytes % 1 % (0-10) Eosinophils % 2 % (0-5) Basophils % 2 % (0-3) Toxic Granulation Slight Toxic Vacuolation Slight Platelet Estimate Decreased (ADEQUATE) Lactic Acid Level 3.2 mmol/L (0.4-2.0) 3.2 mmol/L (0.4-2.0) Procalcitonin < 0.10 ng/mL (0.00-0.10) Sodium Level 142 mmol/L (136-145) Potassium Level 4.1 mmol/L (3.5-5.1) Chloride Level 104 mmol/L (98-107) Carbon Dioxide Level 25 mmol/L (21-32) Anion Gap 13 (6-14) Blood Urea Nitrogen 15 mg/dL (8-26) Creatinine 1.6 mg/dL (0.7-1.3) Estimated GFR (Cockcroft-Gault) 50.3 BUN/Creatinine Ratio 9 (6-20) Glucose Level 140 mg/dL (70-99) Calcium Level 9.2 mg/dL (8.5-10.1) Magnesium Level 1.9 mg/dL (1.8-2.4) Total Bilirubin 0.7 mg/dL (0.2-1.0) Aspartate Amino Transf (AST/SGOT) 18 U/L (15-37) Alanine Aminotransferase (ALT/SGPT) 13 U/L (16-63) Alkaline Phosphatase 133 U/L (46-116) Creatine Kinase 73 U/L (39-308) Creatine Kinase MB (Mass) 2.0 ng/mL (0.0-3.6) Creatine Kinase MB Relative Index % (0-4) Troponin I Quantitative < 0.017 ng/mL (0.000-0.055) OR-Nvm-P-Type Natriuretic Peptide 1674 pg/mL (0-449) Total Protein 8.0 g/dL (6.4-8.2) Albumin 3.1 g/dL (3.4-5.0) Albumin/Globulin Ratio 0.6 (1.0-1.7) Test 07/04/19 06:25 White Blood Count 7.2 x10^3/uL (4.0-11.0) Red Blood Count 5.27 x10^6/uL (4.30-5.70) Hemoglobin 16.7 g/dL (13.0-17.5) Hematocrit 50.7 % (39.0-53.0) Mean Corpuscular Volume 96 fL (79-100) Mean Corpuscular Hemoglobin 32 pg (25-35) Mean Corpuscular Hemoglobin Concent 33 g/dL (31-37) Red Cell Distribution Width 16.5 % (11.5-14.5) Platelet Count 117 x10^3/uL (140-400) Neutrophils (%) (Auto) 92 % (31-73) Lymphocytes (%) (Auto) 6 % (24-48) Monocytes (%) (Auto) 1 % (0-9) Eosinophils (%) (Auto) 1 % (0-3) Basophils (%) (Auto) 0 % (0-3) Neutrophils # (Auto) 6.6 x10^3/uL (1.8-7.7) Lymphocytes # (Auto) 0.4 x10^3/uL (1.0-4.8) Monocytes # (Auto) 0.1 x10^3/uL (0.0-1.1) Eosinophils # (Auto) 0.0 x10^3/uL (0.0-0.7) Basophils # (Auto) 0.0 x10^3/uL (0.0-0.2) Sodium Level 143 mmol/L (136-145) Potassium Level 4.2 mmol/L (3.5-5.1) Chloride Level 107 mmol/L (98-107) Carbon Dioxide Level 26 mmol/L (21-32) Anion Gap 10 (6-14) Blood Urea Nitrogen 19 mg/dL (8-26) Creatinine 1.7 mg/dL (0.7-1.3) Estimated GFR (Cockcroft-Gault) 46.8 BUN/Creatinine Ratio 11 (6-20) Glucose Level 130 mg/dL (70-99) Calcium Level 8.8 mg/dL (8.5-10.1) Total Bilirubin 0.7 mg/dL (0.2-1.0) Aspartate Amino Transf (AST/SGOT) 20 U/L (15-37) Alanine Aminotransferase (ALT/SGPT) 13 U/L (16-63) Alkaline Phosphatase 116 U/L (46-116) Total Protein 7.3 g/dL (6.4-8.2) Albumin 2.8 g/dL (3.4-5.0) Albumin/Globulin Ratio 0.6 (1.0-1.7) Medications Active Scripts Medications Dose Route/Sig Max Daily Dose Days Date Category Proventil Hfa (Albuterol Sulfate) 6.7 Gm Hfa.aer.ad 1 Puff INH PRN Q6HRS PRN 03/10/19 Rx Prednisone 50 Mg Tablet 1 Tab PO DAILY 03/10/19 Rx Prednisone (Prednisone) 10 Mg Tablet 10 Mg PO DAILY 2 01/15/19 Rx Prednisone 20 Mg Tablet 1 Tab PO BID 2 01/15/19 Rx Prednisone 50 Mg Tablet 50 Mg PO DAILY 3 01/15/19 Rx Hydrocodone-Apap 5-325 (Hydrocodone Bit/Acetaminophen) 1 Tab Tablet 1 Tab PO PRN Q4HRS PRN 5 01/15/19 Rx Doxycycline Hyclate 100 Mg Tablet 100 Mg PO BID 2 01/15/19 Rx Haloperidol 2 Mg Tablet 1 Tab PO BID 10/22/18 Rx Olanzapine 2.5 Mg Tablet 2.5 Mg PO DAILY MDD 1 30 10/22/18 Rx Amlodipine Besylate 10 Mg Tablet 10 Mg PO DAILY MDD 1 30 10/22/18 Rx Hydralazine Hcl 25 Mg Tablet 25 Mg PO TID MDD 1 30 10/22/18 Rx Nystatin 15 Gm Powder 1 Alberto TP BID 10/17/18 Reported Milk Of Magnesia (Magnesium Hydroxide) 400 Mg/5 Ml Oral.susp 400 Mg PO PRN DAILY PRN 10/17/18 Reported Mag-Oxide (Magnesium Oxide) 400 Mg Tablet 1 Tab PO BID 10/17/18 Reported Losartan Potassium 100 Mg Tablet 100 Mg PO DAILY 10/17/18 Reported Lasix (Furosemide) 20 Mg Tablet 1 Tab PO DAILY 10/17/18 Reported Potassium Chloride 20 Meq Tablet.er 20 Meq PO DAILY 10/15/18 Reported Colcrys (Colchicine) 0.6 Mg Tablet 0.6 Mg PO DAILY 30 01/03/18 Rx Aspirin Ec (Aspirin) 81 Mg Tablet.dr 81 Mg PO DAILYWBKFT 30 01/03/18 Rx Duoneb 0.5-3(2.5) Mg/3 Ml (Albuterol/Ipratropium) 3 Ml Ampul.neb 3 Ml NEB RTQID 30 01/03/18 Rx Metoprolol Tartrate 50 Mg Tablet 2 Tab PO BID 30 01/03/18 Rx Miralax (Polyethylene Glycol 3350) 17 Gm Powd.pack 1 Packet PO PRN DAILY PRN 03/09/16 Reported Tylenol (Acetaminophen) 325 Mg Tablet 1 Tab PO PRN Q6HRS PRN 03/09/16 Reported Famotidine 20 Mg Tablet 20 Mg PO HS 03/05/16 Reported Impression . IMPRESSION: 1. Progressive dyspnea, multifactorial. 2. Acute respiratory failure. 3. Suspect acute exacerbation of chronic obstructive pulmonary disease. 4. Possible pneumonia. 5. Dementia. 6. History of tobacco dependence, in remission. 7. Chronic heart failure. 8. Hypertension. 9. Suspect acute on chronic diastolic heart failure. 10. Chronic renal insufficiency. Plan . pt resp status compensated will continue the same CT PENDING 1. We will continue to treat empirically for pneumonia. The patient is currently on vancomycin. He has received Levaquin. We will add Zosyn for now. 2. Obtain CT chest. 3. Steroids. 4. Continue home medications. 5. Bronchodilators. 6. Oxygen supplementation. ROSE GIRALDO MD Jul 05, 2019 08:57
--- NOTE | 2019-07-05 10:18 | PDOC ---
PROGRESS NOTES Chief Complaint Chief Complaint impression acute exacerbation of COPD, steroids, nebs, no abx, no sputum or fever, pulm consult acute hypoxic resp failure Hepatic cirrhosis or other fibrotic process. mild tricuspid regurgitation. RVSP 48 mm Hg. c/w moderate pulm htn Diffuse increased interstitial opacity due to chronic interstitial change or trace interstitial infiltrate. The superimposed on suspected bilateral basilar atelectasis. by cxr mild malnutrition in obesity, BMI 35 dementia, w. history of behavioral d/o CAD, htn, lipids CKD 3 Small complex renal cysts BPH, Aspiration risk states he stopped smoking 5 yrs ago, 1/2 ppd, but poor historian plan ua cont iv vanc, levaquin conservative approach given age, dementia pulm following PT/OT swallow screen/ ST follow renal function arterial doppler both legs History of Present Illness History of Present Illness less distress more alert, but still poor recent recall, consistent with dementia, he thinks [place] is on [address], he is not oriented 0/3, cannot recall names coughs after eating, c/o bilat foot pain, will check arterial dopplers 38 min pt exam, chart review, > 50% of time spent with exam, chart review, pt care coordination Vitals Vitals Vital Signs Date Time Temp Pulse Resp B/P (MAP) Pulse Ox O2 Delivery O2 Flow Rate FiO2 07/05/19 08:40 97 Room Air 07/05/19 03:51 98.3 77 18 123/67 (85) 98.3 07/04/19 23:50 4.0 Physical Exam General: Alert, Cooperative, No acute distress, Other (disoriented 0/3,. consistent with dementia, does not know year or president) Heart: Regular rate, No murmurs Lungs: Crackles Abdomen: Normal bowel sounds, Soft Extremities: No cyanosis, Other (dorsal pedal pulses absent) Skin: No rashes, No significant lesion Labs LABS INDICATIONS PT WITH RECURRENT SYNCOPE AND BRADYCARDIA THAT IS IN A FIB. IMPLANTED DEVICES ST MARTINEZ PACEMAKER GENERATOR [facility] M[facility]INE[facility] PACING LEAD PROCEDURE After explaining the risks, benefits, and alternative options, informed consent was obtained from the patient. The patient was brought to the cardiac catheterization lab and the left chest and shoulder were prepped and draped in a sterile manner. During this case, Fluoroscopy and no contrast were used for imaging. The subcutaneous pocket was formed via blunt dissection, Percutaneous venous access was achieved and an introducer sheath was inserted into the leftSubclavian vein. Through the introducer sheath, the ventricular lead wire was postitioned in the right ventricular apex utilizing fluoroscopic guidance. SENSING AND PACING THRESHOLDS WERE NORMAL THE VENTRICULAR ELECTRODE PARAMETERS THE POCKET WAS IRRIGATED WITH ANTIBIOTIC SOLUTION AFTER THE LEAD WAS SUTURED IN PLACE AND THE GENERATOR HAD BEEN CONNECTED. PACER PLACED IN THE POCKET. POCKET CLOSED WITH 3 LAYERS OF RUNNING SUTURES. SKIN EDGES APROXIMATED WITH DERMABOND. DRESSING APPLIED TO THE AREA AND PT RETURNED TO HIS ROOM. COMPLICATIONS The patient tolerated the procedure well and there were no complications associated with the procedure. CONCLUSION INSERTION OF A SINGLE LEAD PACEMAKER IN A PT WITH A FIB, BRADYCARDIA AND SYNCOPE. DICTATED and SIGNED BY: LIANNA SCHULTE MD DATE: 03/07/161933 Aortic Valve AoV Peak Rodrigo. 118.2cm/s AoV VTI 20.4cm AO Peak GR. 5.6mmHg LVOT Peak Rodrigo. 66.1cm/s AO Mean GR. 3mmHg ELOISA (VMAX) 1.83cm2 Mitral Valve MV E Velocity 83.6cm/s MV DECEL TIME 194ms MV A Velocity 23.5cm/s E/A Ratio 3.6 Pulmonary Valve PV Peak Velocity 107.9cm/s Tricuspid Valve TR P. Velocity 365cm/s RAP ESTIMATE 3mmHg TR Peak Gr. 53mmHg RVSP 56mmHg LEFT VENTRICLE The left ventricle is normal size. There is mild concentric left ventricular hypertrophy. The left ventricular systolic function is low normal. The Ejection Fraction is 50%. Septal motion suggestive of paced rhythm. Transmitral Doppler flow pattern is Grade II-pseudonormal filling dynamics. RIGHT VENTRICLE The right ventricle is moderately dilated. There is normal right ventricular wall thickness. The right ventricular systolic function is normal. ATRIA The left atrium is mildly dilated. The right atrium is mildly dilated. The interatrial septum is intact with no evidence for an atrial septal defect or patent foramen ovale as noted on 2-D or Doppler imaging. AORTIC VALVE Not well visualized. Doppler and Color Flow revealed no significant aortic regurgitation. Calculated aortic valve area is 1.8 cm2 with maximum pressure gradient of 6 mmHg and mean pressure gradient of 4 mmHg. There is no significant aortic valvular stenosis. MITRAL VALVE The mitral valve is thickened but opens well. There is no evidence of mitral valve prolapse. There is no mitral valve stenosis. Doppler and Color-flow revealed mild mitral regurgitation. TRICUSPID VALVE The tricuspid valve is normal in structure and function. Doppler and Color Flow revealed trace to mild tricuspid regurgitation. RVSP 48 mm Hg. There is no tricuspid valve stenosis. PULMONIC VALVE The pulmonic valve is not well visualized. Doppler and Color Flow revealed trace pulmonic valvular regurgitation. GREAT VESSELS The aortic root is normal in size. The IVC was not visualized. PERICARDIAL EFFUSION There is a trace pericardial effusion. Critical Notification Critical Value: No <Conclusion> The left ventricular systolic function is low normal. The Ejection Fraction is 50%. Septal motion suggestive of paced rhythm. The right ventricle is moderately dilated. Doppler and Color Flow revealed trace to mild tricuspid regurgitation. RVSP 48 mm Hg. Signed by : Elaine Cruz, Electronically Approved : 10/15/2018 17:33:59 DICTATED and SIGNED BY: ELAINE CRUZ MD DATE: 10/15/18 1734 EXAM: Chest, single view. HISTORY: Wheezing. Shortness of breath. COMPARISON: 03/10/2019 FINDINGS: A frontal view of the chest is obtained. Air is slight increased diffuse interstitial opacity. There is no consolidation. There is suspected basilar atelectasis. No pleural effusion or pneumothorax is seen. The heart is normal in size. There is a cardiac pacemaker overlying expected position. IMPRESSION: Diffuse increased interstitial opacity due to chronic interstitial change or trace interstitial infiltrate. The superimposed on suspected bilateral basilar atelectasis. Electronically signed by: Nicole Banks MD (07/03/2019 4:34 PM) [facility] DICTATED and SIGNED BY: NICOLE BANKS MD DATE: 07/03/19 1634 SPEC #: [id number] DARRELL: 07/03/19 STATUS: RES REQ #: [id number] RECD: 07/03/[address]: SOL CH APRN SOURCE: BLOOD ENTR: 07/03/19-[address] [facility] [address]: MIKE SMITH MD [facility]: ORDERED: BCULT Procedure Result BLOOD CULTURE Preliminary NO GROWTH AFTER 1 DAY Assessment and Plan Assessmemt and Plan Problems Medical Problems: (1) Acute renal failure Status: Acute (2) COPD (chronic obstructive pulmonary disease) Status: Acute (3) Elevated lactic acid level Status: Acute History of Present Illness History of Present Illness Mr. house, is a 83 year old male admit with acute dyspnea, brought for wheeze and cough and shortness of breath. He has a history of CAD, COPD, anemia, renal insufficiency, with days of cough and malaise Patient is a very poor historian. he says he was sent from his doctors office, but was sent from his halfway Past Medical History Cardiovascular: CAD, CHF, HTN, Hyperlipidemia, Other Pulmonary: COPD, Pneumonia GI: GERD, Other Heme/Onc: Anemia NOS Psych: Depression, Other Musculoskeletal: Osteoarthritis, Weakness Rheumatologic: Other Renal/: Chronic renal insuff, Benign prostatic enlarg. Past Surgical History Past Surgical History: Pacemaker, Appendectomy, Cholecystectomy, Other Family History Family History: Heart Disease, Hypertension Social History Smoke: No ALCOHOL: none Drugs: None Comment Review of Relevant I have reviewed the following items patrick (where applicable) has been applied. Labs Laboratory Tests Test 07/03/19 17:45 11/6/19 18:20 07/03/19 18:30 07/03/19 21:08 White Blood Count 6.0 x10^3/uL (4.0-11.0) Red Blood Count 5.57 x10^6/uL (4.30-5.70) Hemoglobin 17.4 g/dL (13.0-17.5) Hematocrit 53.5 % (39.0-53.0) Mean Corpuscular Volume 96 fL (79-100) Mean Corpuscular Hemoglobin 31 pg (25-35) Mean Corpuscular Hemoglobin Concent 33 g/dL (31-37) Red Cell Distribution Width 16.5 % (11.5-14.5) Platelet Count 129 x10^3/uL (140-400) Neutrophils (%) (Auto) 91 % (31-73) Lymphocytes (%) (Auto) 6 % (24-48) Monocytes (%) (Auto) 2 % (0-9) Eosinophils (%) (Auto) 1 % (0-3) Basophils (%) (Auto) 1 % (0-3) Neutrophils # (Auto) 5.4 x10^3/uL (1.8-7.7) Lymphocytes # (Auto) 0.3 x10^3/uL (1.0-4.8) Monocytes # (Auto) 0.1 x10^3/uL (0.0-1.1) Eosinophils # (Auto) 0.1 x10^3/uL (0.0-0.7) Basophils # (Auto) 0.0 x10^3/uL (0.0-0.2) Segmented Neutrophils % 87 % (35-66) Band Neutrophils % 1 % (0-9) Lymphocytes % 7 % (24-48) Monocytes % 1 % (0-10) Eosinophils % 2 % (0-5) Basophils % 2 % (0-3) Toxic Granulation Slight Toxic Vacuolation Slight Platelet Estimate Decreased (ADEQUATE) Lactic Acid Level 3.2 mmol/L (0.4-2.0) 3.2 mmol/L (0.4-2.0) Procalcitonin < 0.10 ng/mL (0.00-0.10) Sodium Level 142 mmol/L (136-145) Potassium Level 4.1 mmol/L (3.5-5.1) Chloride Level 104 mmol/L (98-107) Carbon Dioxide Level 25 mmol/L (21-32) Anion Gap 13 (6-14) Blood Urea Nitrogen 15 mg/dL (8-26) Creatinine 1.6 mg/dL (0.7-1.3) Estimated GFR (Cockcroft-Gault) 50.3 BUN/Creatinine Ratio 9 (6-20) Glucose Level 140 mg/dL (70-99) Calcium Level 9.2 mg/dL (8.5-10.1) Magnesium Level 1.9 mg/dL (1.8-2.4) Total Bilirubin 0.7 mg/dL (0.2-1.0) Aspartate Amino Transf (AST/SGOT) 18 U/L (15-37) Alanine Aminotransferase (ALT/SGPT) 13 U/L (16-63) Alkaline Phosphatase 133 U/L (46-116) Creatine Kinase 73 U/L (39-308) Creatine Kinase MB (Mass) 2.0 ng/mL (0.0-3.6) Creatine Kinase MB Relative Index % (0-4) Troponin I Quantitative < 0.017 ng/mL (0.000-0.055) SF-Jcd-T-Type Natriuretic Peptide 1674 pg/mL (0-449) Total Protein 8.0 g/dL (6.4-8.2) Albumin 3.1 g/dL (3.4-5.0) Albumin/Globulin Ratio 0.6 (1.0-1.7) Test 07/04/19 06:25 White Blood Count 7.2 x10^3/uL (4.0-11.0) Red Blood Count 5.27 x10^6/uL (4.30-5.70) Hemoglobin 16.7 g/dL (13.0-17.5) Hematocrit 50.7 % (39.0-53.0) Mean Corpuscular Volume 96 fL (79-100) Mean Corpuscular Hemoglobin 32 pg (25-35) Mean Corpuscular Hemoglobin Concent 33 g/dL (31-37) Red Cell Distribution Width 16.5 % (11.5-14.5) Platelet Count 117 x10^3/uL (140-400) Neutrophils (%) (Auto) 92 % (31-73) Lymphocytes (%) (Auto) 6 % (24-48) Monocytes (%) (Auto) 1 % (0-9) Eosinophils (%) (Auto) 1 % (0-3) Basophils (%) (Auto) 0 % (0-3) Neutrophils # (Auto) 6.6 x10^3/uL (1.8-7.7) Lymphocytes # (Auto) 0.4 x10^3/uL (1.0-4.8) Monocytes # (Auto) 0.1 x10^3/uL (0.0-1.1) Eosinophils # (Auto) 0.0 x10^3/uL (0.0-0.7) Basophils # (Auto) 0.0 x10^3/uL (0.0-0.2) Sodium Level 143 mmol/L (136-145) Potassium Level 4.2 mmol/L (3.5-5.1) Chloride Level 107 mmol/L (98-107) Carbon Dioxide Level 26 mmol/L (21-32) Anion Gap 10 (6-14) Blood Urea Nitrogen 19 mg/dL (8-26) Creatinine 1.7 mg/dL (0.7-1.3) Estimated GFR (Cockcroft-Gault) 46.8 BUN/Creatinine Ratio 11 (6-20) Glucose Level 130 mg/dL (70-99) Calcium Level 8.8 mg/dL (8.5-10.1) Total Bilirubin 0.7 mg/dL (0.2-1.0) Aspartate Amino Transf (AST/SGOT) 20 U/L (15-37) Alanine Aminotransferase (ALT/SGPT) 13 U/L (16-63) Alkaline Phosphatase 116 U/L (46-116) Total Protein 7.3 g/dL (6.4-8.2) Albumin 2.8 g/dL (3.4-5.0) Albumin/Globulin Ratio 0.6 (1.0-1.7) Microbiology 07/03/19 Blood Culture - Preliminary, Resulted NO GROWTH AFTER 1 DAY Medications Current Medications Albuterol/ Ipratropium (Duoneb) 3 ml 1X ONCE NEB Last administered on 07/03/19at 16:35; Start 07/03/19 at 16:30; Stop 07/03/19 at 16:31; Status DC Methylprednisolone Sodium Succinate (SOLU-Medrol 125MG VIAL) 125 mg 1X ONCE IV Last administered on 07/03/19at 18:11; Start 07/03/19 at 16:30; Stop 07/03/19 at 16:31; Status DC Sodium Chloride 1,000 ml @ 1,000 mls/hr 1X ONCE IV ; Start 07/03/19 at 20:00; Stop 07/03/19 at 20:59; Status DC Sodium Chloride 1,000 ml @ 1,000 mls/hr 1X ONCE IV ; Start 07/03/19 at 20:00; Stop 07/03/19 at 20:59; Status DC Ondansetron HCl (Zofran) 4 mg PRN Q8HRS PRN IV NAUSEA/VOMITING; Start 07/03/19 at 20:00; Stop 07/04/19 at 19:59; Status DC Morphine Sulfate (Morphine Sulfate) 4 mg PRN Q2HR PRN IV PAIN; Start 07/03/19 at 20:00; Stop 07/04/19 at 19:59; Status DC Acetaminophen (Tylenol) 650 mg PRN Q4HRS PRN PO FEVER Last administered on 07/04/19at 13:25; Start 07/03/19 at 20:00; Stop 07/04/19 at 19:59; Status DC Albuterol/ Ipratropium (Duoneb) 3 ml RTQID NEB Last administered on 07/04/19at 19:59; Start 07/03/19 at 20:00; Stop 07/04/19 at 19:59; Status DC Levofloxacin/ Dextrose 100 ml @ 100 mls/hr 1X ONCE IV Last administered on 07/03/19at 22:44; Start 07/03/19 at 20:00; Stop 07/03/19 at 20:59; Status DC Vancomycin HCl (Vanco Per Pharmacy) 1 each PRN DAILY PRN MC SEE COMMENTS Last administered on 07/04/19at 14:16; Start 07/03/19 at 20:00 Vancomycin HCl 2 gm/Sodium Chloride 500 ml @ 250 mls/hr 1X ONCE IV Last administered on 07/04/19at 00:11; Start 07/03/19 at 20:30; Stop 07/03/19 at 22:29; Status DC Prednisone (Prednisone) 40 mg DAILY PO Last administered on 11/7/19at 09:39; Start 07/04/19 at 09:00 Vancomycin HCl 1.5 gm/Sodium Chloride 500 ml @ 250 mls/hr Q24H IV Last administered on 07/04/19at 23:51; Start 07/05/19 at 00:00 Vancomycin HCl (Vancomycin Trough Level) 1 each 1X ONCE MC ; Start 07/05/19 at 23:30; Stop 07/05/19 at 23:31 Lactobacillus Rhamnosus (Culturelle) 1 cap BID PO Last administered on 07/04/19at 22:07; Start 07/04/19 at 21:00 Multivitamins (Thera M Plus) 1 tab DAILY PO Last administered on 07/04/19 12:57; Start 07/04/19 at 12:00 Levofloxacin/ Dextrose 50 ml @ 50 mls/hr Q24H IV Last administered on 07/04/19 14:51; Start 07/04/19 at 14:00 Albuterol/ Ipratropium (Duoneb) 3 ml RTQID NEB Last administered on 07/05/19at 08:39; Start 07/05/19 at 08:00 Active Scripts Active Proventil Hfa (Albuterol Sulfate) 6.7 Gm Hfa.aer.ad 1 Puff INH PRN Q6HRS PRN Prednisone 50 Mg Tablet 1 Tab PO DAILY Prednisone (Prednisone) 10 Mg Tablet 10 Mg PO DAILY 2 Days Prednisone 20 Mg Tablet 1 Tab PO BID 2 Days Prednisone 50 Mg Tablet 50 Mg PO DAILY 3 Days Hydrocodone-Apap 5-325 (Hydrocodone Bit/Acetaminophen) 1 Tab Tablet 1 Tab PO PRN Q4HRS PRN 5 Days Doxycycline Hyclate 100 Mg Tablet 100 Mg PO BID 2 Days Haloperidol 2 Mg Tablet 1 Tab PO BID Olanzapine 2.5 Mg Tablet 2.5 Mg PO DAILY MDD 1 30 Days Amlodipine Besylate 10 Mg Tablet 10 Mg PO DAILY MDD 1 30 Days Hydralazine Hcl 25 Mg Tablet 25 Mg PO TID MDD 1 30 Days Colcrys (Colchicine) 0.6 Mg Tablet 0.6 Mg PO DAILY 30 Days Aspirin Ec (Aspirin) 81 Mg Tablet.dr 81 Mg PO DAILYWBKFT 30 Days Duoneb 0.5-3(2.5) Mg/3 Ml (Albuterol/Ipratropium) 3 Ml Ampul.neb 3 Ml NEB RTQID 30 Days Metoprolol Tartrate 50 Mg Tablet 2 Tab PO BID 30 Days Reported Nystatin 15 Gm Powder 1 Alberto TP BID Milk Of Magnesia (Magnesium Hydroxide) 400 Mg/5 Ml Oral.susp 400 Mg PO PRN DAILY PRN Mag-Oxide (Magnesium Oxide) 400 Mg Tablet 1 Tab PO BID Losartan Potassium 100 Mg Tablet 100 Mg PO DAILY Lasix (Furosemide) 20 Mg Tablet 1 Tab PO DAILY Potassium Chloride 20 Meq Tablet.er 20 Meq PO DAILY Miralax (Polyethylene Glycol 3350) 17 Gm Powd.pack 1 Packet PO PRN DAILY PRN Tylenol (Acetaminophen) 325 Mg Tablet 1 Tab PO PRN Q6HRS PRN Famotidine 20 Mg Tablet 20 Mg PO HS Vitals/I & O Vital Sign - Last 24 Hours 07/04/19 07/04/19 07/04/19 07/04/19 11:03 11:06 15:07 15:26 Temp 98.0 97.3 98.0 97.3 Pulse 69 72 Resp 20 18 B/P (MAP) 128/75 (92) 126/81 (96) Pulse Ox 98 96 100 96 O2 Delivery Nasal Cannula Nasal Cannula Nasal Cannula Nasal Cannula O2 Flow Rate 4.0 4.0 4.0 3.0 07/04/19 07/04/19 07/04/19 07/04/19 19:45 19:59 20:00 23:50 Temp 97.7 98.3 97.7 98.3 Pulse 62 69 Resp 16 16 B/P (MAP) 108/66 (80) 113/65 (81) Pulse Ox 99 96 96 O2 Delivery Nasal Cannula Nasal Cannula Nasal Cannula Nasal Cannula O2 Flow Rate 4.0 3.0 3.0 4.0 07/05/19 07/05/19 03:51 08:40 Temp 98.3 98.3 Pulse 77 Resp 18 B/P (MAP) 123/67 (85) Pulse Ox 97 97 O2 Delivery Room Air Room Air Intake and Output 07/04/19 07/04/19 07/05/19 15:00 23:00 07:00 Intake Total 480 ml 330 ml 120 ml Output Total 250 ml 350 ml Balance 480 ml 80 ml -230 ml CARLOS LINDSEY MD Jul 05, 2019 10:18
[2019-07-05] MEDS: MULTIVITAMIN with MINERAL TABLET. PO SCH (10:25)
[2019-07-05] MEDS: LACTOBACILLUS RHAMNOSUS GG 1 CAPSULE. PO SCH ×2 (10:26→21:13)
[2019-07-05] MEDS: predniSONE 20 MG TABLET PO SCH (10:26)
[2019-07-05 11:00] VITALS: BP 129/59
[2019-07-05] MEDS: ACETAMINOPHEN 500 MG TABLET PO PRN ×2 (11:50→19:36)
[2019-07-05] MEDS: VANCOMYCIN PER PHARMACY MC PRN (14:10)
[2019-07-05 15:00] VITALS: BP 127/67
--- NOTE | 2019-07-05 16:56 | RAD ---
Bilateral lower extremity arterial ultrasound History: Peripheral vascular disease Findings: Multiple grayscale, color, and duplex spectral analysis sonographic images were acquired of the lower extremity arteries bilaterally. There are no previous similar exams. Velocities in cm/sec: RIGHT Common femoral artery 76 Profunda femoris artery 52 Proximal SFA 64 Mid SFA 46 Distal SFA 87 Popliteal artery 58 Anterior tibial artery not identified Dorsalis pedis artery 10 Posterior tibial artery 26 Peroneal artery 26 Monophasic flow of the distal superficial femoral artery and more distally within the right lower extremity arterial vasculature noted. Collateral vessels present at the left distal superficial femoral artery region medially. LEFT: Common femoral artery 103 Profunda femoris artery 101 Proximal SFA 41 Mid SFA occluded Distal SFA occluded Popliteal artery 16.2 Anterior tibial arNot visualized Dorsalis pedis artery 17 Posterior tibial artery not evaluated due to presence of overlying wound dressings Peroneal artery 42 Diminished flow is identified involving left calf arterial vasculature. Impression: Occlusion of the left superficial femoral artery at the mid to distal aspect noted. Diminished flow involving the left calf region. Monophasic, diminished flow involving the right lower extremity arterial vasculature for a distal superficial femoral artery to dorsalis pedis artery evident. Right intervertebral artery is not identified. Electronically signed by: Jesse Pina MD (07/05/2019 4:53 PM) [facility]
[2019-07-05 19:00] VITALS: BP 133/76
--- NOTE | 2019-07-05 22:43 | RAD ---
CT chest without contrast dated 07/05/2019. Comparison made to 01/25/2011. CLINICAL INDICATION: Interstitial lung disease. TECHNIQUE: Contiguous axial imaging the chest performed without the administration of contrast. One or more of the following individualized dose reduction techniques were utilized for this examination: 1. Automated exposure control 2. Adjustment of the mA and/or kV according to patient size 3. Use of iterative reconstruction technique. FINDINGS: Heart size mildly enlarged. No pericardial effusion. Coronary artery calcifications. Mild ectasia of the ascending thoracic aorta measuring 3.8 cm transverse. No mediastinal, hilar or axillary lymphadenopathy. Central airways are patent. Mild diffuse bronchial wall thickening. There are some irregular linear peripheral opacities, basilar predominant. No consolidation or pleural effusion. No pneumothorax. There is some linear opacity at the left lung base with thickening of the pleura, likely atelectasis. No pneumothorax. Images of the upper abdomen unremarkable. Low-density focus at the upper pole of left kidney measures 2.5 cm in size with Hounsfield value of 23, unchanged from prior study. Bone windows show no acute findings. Multilevel spondylosis. IMPRESSION: 1. There is some mild irregular linear opacities at both lung bases that are similar to prior study. This could be related to scarring and/or stable mild interstitial fibrosis. 2. Coronary artery calcifications and mild ectasia of the ascending thoracic aorta. 3. Mild diffuse bronchial wall thickening, nonspecific. Consider acute or chronic bronchial inflammatory process. 4. Pleural-parenchymal changes at the left lung base, likely scar or atelectasis. 5. Indeterminate low-density focus at the upper pole left kidney is stable from the 2011 exam and probably benign. Electronically signed by: Dennis Guerrero MD (07/05/2019 10:40 PM) [facility]
[2019-07-05 23:00] VITALS: BP 134/75
[2019-07-05 23:40] LABS: VANC TR 16.4 mcg/mL (10.0-20.0)
[2019-07-06] MEDS: VANCOMYCIN 1.5 GM in IV NORMAL SALINE 500ML BAG 500 ML IV SCH (00:03)
[2019-07-06] MEDS: VANCOMYCIN PER PHARMACY MC PRN (00:44)
--- NOTE | 2019-07-06 00:44 | NUR ---
Pharmacy Vancomycin Dosing Note S:Consulted to monitor and dose vancomycin started 07/04/19. O:DARYL WEBSTER is a 83 year old M with Pneumonia . Height: 5 feet, 3 inches Weight: 97.793125 kg [place] Body Weight: 56.90 Adjusted Body Weight: 72.94 Dosing Weight: Actual Other Antibiotics: Levaquin LABS: Last BUN: 19 Last Creatinine: 1.7 Creatinine Clearance: 34 mL/min Last WBC: 7.2 Last Procalcitonin: <0.1 Tmax (past 24 hours): 98.3 Microbiology: BLOOD: NGTD (1 DAY) I/O: 930/600 Drug Levels: Last Trough level: 16.4 on 07/05/19 at 2330 Last dose given 07/04/19 at 2351 Vancomycin Dosing: Loading Dose: 2000 mg x1 Dosing Weight: Actual Target Trough: 15-20 A: Based on: TROUGH P: 1. Continue Vancomycin 1500 mg IV q24h 2. Follow up Trough level IF NEEDED 3. Pharmacy will continue to monitor, follow and adjust therapy as needed. JERRY MEDINA RPH, 07/06/19 0044 Signed: 07/06/19 at 0045 by JERRY MEDINA RPH PHA
[2019-07-06 03:19] VITALS: BP 145/82
[2019-07-06 03:30] LABS: BILIRUBIN,URINE NEGATIVE (NEG); CLARITY,URINE CLEAR; COLOR,URINE YELLOW; NITRITE,URINE NEGATIVE (NEG); PROTEIN,URINE NEGATIVE (NEG-TRACE); UROBILINOGEN,URINE 0.2 mg/dL (0.2 mg/dL)
[2019-07-06 03:34] LABS: AMORPHOUS SEDIMENT,UR PRESENT /HPF; BACTERIA,URINE 0 /HPF (0-FEW); RBC,URINE 0 /HPF (0-2); SQUAMOUS EPITHELIAL CELL,UR OCC /LPF; WBC,URINE OCC /HPF (0-4)
[2019-07-06 06:45] LABS: BASO % 0 % (0-3); EOS % 0 % (0-3); HEMOGLOBIN 15.6 g/dL (13.0-17.5); LYMPH # 0.8 x10^3/uL (1.0-4.8); LYMPH % 7 % (24-48); MEAN CORPUSCULAR HEMOGLOBIN 31 pg (25-35); MEAN CORPUSCULAR HGB CONC 32 g/dL (31-37); MEAN CORPUSCULAR VOLUME 96 fL (79-100); MONO % 8 % (0-9); NEUT # 9.7 x10^3/uL (1.8-7.7); NEUT % 85 % (31-73); PLATELET COUNT 114 x10^3/uL (140-400); RED BLOOD COUNT 5.09 x10^6/uL (4.30-5.70); WHITE BLOOD COUNT 11.5 x10^3/uL (4.0-11.0)
[2019-07-06 07:09] LABS: ALBUMIN 2.9 g/dL (3.4-5.0); ALBUMIN/GLOBULIN RATIO 0.7 (1.0-1.7); CALCIUM 8.8 mg/dL (8.5-10.1); CREATININE 1.6 mg/dL (0.7-1.3); GFR 50.2; POTASSIUM 3.8 mmol/L (3.5-5.1); TOTAL BILIRUBIN 0.7 mg/dL (0.2-1.0); TOTAL PROTEIN 7.1 g/dL (6.4-8.2)
[2019-07-06] MEDS: IPRATRPIUM/ALBUTEROL 0.5/2.5MG 3 ML NEBU. NEB SCH ×4 (07:26→19:05)
[2019-07-06 07:59] VITALS: BP 133/68
[2019-07-06] MEDS ORDERED: MAGNESIUM HYDROXIDE 2,400 MG/30 ML ORAL.SUSP. PO PRN (08:15)
[2019-07-06] MEDS ORDERED: CALCIUM CARBONATE 500 MG TAB.CHEW PO PRN (08:15)
[2019-07-06] MEDS ORDERED: HYDROcodone/APAP 5/325MG 1 TAB TABLET PO PRN (08:15)
[2019-07-06] MEDS ORDERED: guaiFENesin DM 200MG/20MG 10 ML SYRUP PO PRN (08:15)
[2019-07-06] MEDS ORDERED: ONDANSETRON PF 4 MG/2 ML VIAL. IVP PRN (08:15)
[2019-07-06] MEDS ORDERED: TEMAZEPAM 7.5 MG CAPSULE PO PRN (08:15)
[2019-07-06] MEDS ORDERED: cloNIDine HCL 0.1 MG TABLET PO PRN (08:15)
[2019-07-06] MEDS ORDERED: POLYETHYLENE GLYCOL 3350 17 GM PACKET. PO PRN (08:15)
[2019-07-06] MEDS ORDERED: ALBUTEROL SULFATE 2.5 MG/3 ML NEBU. NEB PRN (08:30)
--- NOTE | 2019-07-06 09:33 | PDOC ---
PROGRESS NOTES Chief Complaint Chief Complaint acute exacerbation of COPD, steroids, nebs, no abx, no sputum or fever, pulm consult acute hypoxic resp failure Hepatic cirrhosis or other fibrotic process. mild tricuspid regurgitation. RVSP 48 mm Hg. c/w moderate pulm htn Diffuse increased interstitial opacity due to chronic interstitial change or trace interstitial infiltrate. The superimposed on suspected bilateral basilar atelectasis. by cxr mild malnutrition in obesity, BMI 35 dementia, w. history of behavioral d/o CAD, htn, lipids CKD 3 Small complex renal cysts BPH, Aspiration risk History of Present Illness History of Present Illness up in chair but sleeping but wakes to my discussion A transfer from [facility] floor CT: 1. There is some mild irregular linear opacities at both lung bases that are similar to prior study. This could be related to scarring and/or stable mild interstitial fibrosis. 2. Coronary artery calcifications and mild ectasia of the ascending thoracic aorta. 3. Mild diffuse bronchial wall thickening, nonspecific. Consider acute or chronic bronchial inflammatory process. 4. Pleural-parenchymal changes at the left lung base, likely scar or atelectasis. 5. Indeterminate low-density focus at the upper pole left kidney is stable from the 2011 exam and probably benign. I provided him a copy of the above Pulmo on case,added some zosyn 07/05 NEeds SNU and pt is agreeable - came from home SW on case PLAN: IV vanc zosyn SNU Supportive mneds I reconciled home meds Robitussin etc FUll code SNUmonday ' LAbs, follow cx Vitals Vitals Vital Signs Date Time Temp Pulse Resp B/P (MAP) Pulse Ox O2 Delivery O2 Flow Rate FiO2 07/06/19 07:59 97.7 67 18 133/68 (89) 97 Room Air 97.7 Physical Exam General: Alert, Cooperative, No acute distress, Other (disoriented 0/3,. consistent with dementia, does not know year or president) Heart: Regular rate, No murmurs Lungs: Crackles Abdomen: Normal bowel sounds, Soft Extremities: No cyanosis, Other (dorsal pedal pulses absent) Skin: No rashes, No significant lesion Labs LABS Laboratory Tests Test 07/05/19 21:00 07/05/19 23:15 07/06/19 01:45 07/06/19 05:50 Glucose (Fingerstick) 124 mg/dL (70-99) Vancomycin Level Trough 16.4 mcg/mL (10.0-20.0) Vancomycin Last Dose Date 07/05/19 Vancomycin Last Dose Time 0000 Urine Collection Type Unknown Urine Color Yellow Urine Clarity Clear Urine pH 6.0 Urine Specific [place] 1.010 Urine Protein Negative mg/dL (NEG-TRACE) Urine Glucose (UA) Negative mg/dL (NEG) Urine Ketones (Stick) Negative mg/dL (NEG) Urine Blood Negative (NEG) Urine Nitrite Negative (NEG) Urine Bilirubin Negative (NEG) Urine Urobilinogen Dipstick 0.2 mg/dL (0.2 mg/dL) Urine Leukocyte Esterase Negative (NEG) Urine RBC 0 /HPF (0-2) Urine WBC Occ /HPF (0-4) Urine Squamous Epithelial Cells Occ /LPF Urine Amorphous Sediment Present /HPF Urine Bacteria 0 /HPF (0-FEW) Urine Mucus Slight /LPF White Blood Count 11.5 x10^3/uL (4.0-11.0) Red Blood Count 5.09 x10^6/uL (4.30-5.70) Hemoglobin 15.6 g/dL (13.0-17.5) Hematocrit 49.0 % (39.0-53.0) Mean Corpuscular Volume 96 fL (79-100) Mean Corpuscular Hemoglobin 31 pg (25-35) Mean Corpuscular Hemoglobin Concent 32 g/dL (31-37) Red Cell Distribution Width 17.0 % (11.5-14.5) Platelet Count 114 x10^3/uL (140-400) Neutrophils (%) (Auto) 85 % (31-73) Lymphocytes (%) (Auto) 7 % (24-48) Monocytes (%) (Auto) 8 % (0-9) Eosinophils (%) (Auto) 0 % (0-3) Basophils (%) (Auto) 0 % (0-3) Neutrophils # (Auto) 9.7 x10^3/uL (1.8-7.7) Lymphocytes # (Auto) 0.8 x10^3/uL (1.0-4.8) Monocytes # (Auto) 1.0 x10^3/uL (0.0-1.1) Eosinophils # (Auto) 0.0 x10^3/uL (0.0-0.7) Basophils # (Auto) 0.0 x10^3/uL (0.0-0.2) Sodium Level 144 mmol/L (136-145) Potassium Level 3.8 mmol/L (3.5-5.1) Chloride Level 107 mmol/L (98-107) Carbon Dioxide Level 24 mmol/L (21-32) Anion Gap 13 (6-14) Blood Urea Nitrogen 25 mg/dL (8-26) Creatinine 1.6 mg/dL (0.7-1.3) Estimated GFR (Cockcroft-Gault) 50.2 BUN/Creatinine Ratio 16 (6-20) Glucose Level 90 mg/dL (70-99) Calcium Level 8.8 mg/dL (8.5-10.1) Total Bilirubin 0.7 mg/dL (0.2-1.0) Aspartate Amino Transf (AST/SGOT) 20 U/L (15-37) Alanine Aminotransferase (ALT/SGPT) 18 U/L (16-63) Alkaline Phosphatase 99 U/L (46-116) Total Protein 7.1 g/dL (6.4-8.2) Albumin 2.9 g/dL (3.4-5.0) Albumin/Globulin Ratio 0.7 (1.0-1.7) Review of Systems Review of Systems weak, cough, no inc soa, no fevers, no cp, no abd pain or diarrhea Assessment and Plan Assessmemt and Plan Problems Medical Problems: (1) Acute renal failure Status: Acute (2) COPD (chronic obstructive pulmonary disease) Status: Acute (3) Elevated lactic acid level Status: Acute Comment Review of Relevant I have reviewed the following items patrick (where applicable) has been applied. Labs Laboratory Tests Test 07/05/19 21:00 07/05/19 23:15 07/06/19 01:45 07/06/19 05:50 Glucose (Fingerstick) 124 mg/dL (70-99) Vancomycin Level Trough 16.4 mcg/mL (10.0-20.0) Vancomycin Last Dose Date 07/05/19 Vancomycin Last Dose Time 0000 Urine Collection Type Unknown Urine Color Yellow Urine Clarity Clear Urine pH 6.0 Urine Specific [place] 1.010 Urine Protein Negative mg/dL (NEG-TRACE) Urine Glucose (UA) Negative mg/dL (NEG) Urine Ketones (Stick) Negative mg/dL (NEG) Urine Blood Negative (NEG) Urine Nitrite Negative (NEG) Urine Bilirubin Negative (NEG) Urine Urobilinogen Dipstick 0.2 mg/dL (0.2 mg/dL) Urine Leukocyte Esterase Negative (NEG) Urine RBC 0 /HPF (0-2) Urine WBC Occ /HPF (0-4) Urine Squamous Epithelial Cells Occ /LPF Urine Amorphous Sediment Present /HPF Urine Bacteria 0 /HPF (0-FEW) Urine Mucus Slight /LPF White Blood Count 11.5 x10^3/uL (4.0-11.0) Red Blood Count 5.09 x10^6/uL (4.30-5.70) Hemoglobin 15.6 g/dL (13.0-17.5) Hematocrit 49.0 % (39.0-53.0) Mean Corpuscular Volume 96 fL (79-100) Mean Corpuscular Hemoglobin 31 pg (25-35) Mean Corpuscular Hemoglobin Concent 32 g/dL (31-37) Red Cell Distribution Width 17.0 % (11.5-14.5) Platelet Count 114 x10^3/uL (140-400) Neutrophils (%) (Auto) 85 % (31-73) Lymphocytes (%) (Auto) 7 % (24-48) Monocytes (%) (Auto) 8 % (0-9) Eosinophils (%) (Auto) 0 % (0-3) Basophils (%) (Auto) 0 % (0-3) Neutrophils # (Auto) 9.7 x10^3/uL (1.8-7.7) Lymphocytes # (Auto) 0.8 x10^3/uL (1.0-4.8) Monocytes # (Auto) 1.0 x10^3/uL (0.0-1.1) Eosinophils # (Auto) 0.0 x10^3/uL (0.0-0.7) Basophils # (Auto) 0.0 x10^3/uL (0.0-0.2) Sodium Level 144 mmol/L (136-145) Potassium Level 3.8 mmol/L (3.5-5.1) Chloride Level 107 mmol/L (98-107) Carbon Dioxide Level 24 mmol/L (21-32) Anion Gap 13 (6-14) Blood Urea Nitrogen 25 mg/dL (8-26) Creatinine 1.6 mg/dL (0.7-1.3) Estimated GFR (Cockcroft-Gault) 50.2 BUN/Creatinine Ratio 16 (6-20) Glucose Level 90 mg/dL (70-99) Calcium Level 8.8 mg/dL (8.5-10.1) Total Bilirubin 0.7 mg/dL (0.2-1.0) Aspartate Amino Transf (AST/SGOT) 20 U/L (15-37) Alanine Aminotransferase (ALT/SGPT) 18 U/L (16-63) Alkaline Phosphatase 99 U/L (46-116) Total Protein 7.1 g/dL (6.4-8.2) Albumin 2.9 g/dL (3.4-5.0) Albumin/Globulin Ratio 0.7 (1.0-1.7) Laboratory Tests Test 07/05/19 21:00 07/05/19 23:15 07/06/19 01:45 07/06/19 05:50 Glucose (Fingerstick) 124 mg/dL (70-99) Vancomycin Level Trough 16.4 mcg/mL (10.0-20.0) Vancomycin Last Dose Date 07/05/19 Vancomycin Last Dose Time 0000 Urine Collection Type Unknown Urine Color Yellow Urine Clarity Clear Urine pH 6.0 Urine Specific [place] 1.010 Urine Protein Negative mg/dL (NEG-TRACE) Urine Glucose (UA) Negative mg/dL (NEG) Urine Ketones (Stick) Negative mg/dL (NEG) Urine Blood Negative (NEG) Urine Nitrite Negative (NEG) Urine Bilirubin Negative (NEG) Urine Urobilinogen Dipstick 0.2 mg/dL (0.2 mg/dL) Urine Leukocyte Esterase Negative (NEG) Urine RBC 0 /HPF (0-2) Urine WBC Occ /HPF (0-4) Urine Squamous Epithelial Cells Occ /LPF Urine Amorphous Sediment Present /HPF Urine Bacteria 0 /HPF (0-FEW) Urine Mucus Slight /LPF White Blood Count 11.5 x10^3/uL (4.0-11.0) Red Blood Count 5.09 x10^6/uL (4.30-5.70) Hemoglobin 15.6 g/dL (13.0-17.5) Hematocrit 49.0 % (39.0-53.0) Mean Corpuscular Volume 96 fL (79-100) Mean Corpuscular Hemoglobin 31 pg (25-35) Mean Corpuscular Hemoglobin Concent 32 g/dL (31-37) Red Cell Distribution Width 17.0 % (11.5-14.5) Platelet Count 114 x10^3/uL (140-400) Neutrophils (%) (Auto) 85 % (31-73) Lymphocytes (%) (Auto) 7 % (24-48) Monocytes (%) (Auto) 8 % (0-9) Eosinophils (%) (Auto) 0 % (0-3) Basophils (%) (Auto) 0 % (0-3) Neutrophils # (Auto) 9.7 x10^3/uL (1.8-7.7) Lymphocytes # (Auto) 0.8 x10^3/uL (1.0-4.8) Monocytes # (Auto) 1.0 x10^3/uL (0.0-1.1) Eosinophils # (Auto) 0.0 x10^3/uL (0.0-0.7) Basophils # (Auto) 0.0 x10^3/uL (0.0-0.2) Sodium Level 144 mmol/L (136-145) Potassium Level 3.8 mmol/L (3.5-5.1) Chloride Level 107 mmol/L (98-107) Carbon Dioxide Level 24 mmol/L (21-32) Anion Gap 13 (6-14) Blood Urea Nitrogen 25 mg/dL (8-26) Creatinine 1.6 mg/dL (0.7-1.3) Estimated GFR (Cockcroft-Gault) 50.2 BUN/Creatinine Ratio 16 (6-20) Glucose Level 90 mg/dL (70-99) Calcium Level 8.8 mg/dL (8.5-10.1) Total Bilirubin 0.7 mg/dL (0.2-1.0) Aspartate Amino Transf (AST/SGOT) 20 U/L (15-37) Alanine Aminotransferase (ALT/SGPT) 18 U/L (16-63) Alkaline Phosphatase 99 U/L (46-116) Total Protein 7.1 g/dL (6.4-8.2) Albumin 2.9 g/dL (3.4-5.0) Albumin/Globulin Ratio 0.7 (1.0-1.7) Microbiology 07/03/19 Blood Culture - Preliminary, Resulted NO GROWTH AFTER 2 DAYS Medications Current Medications Albuterol/ Ipratropium (Duoneb) 3 ml 1X ONCE NEB Last administered on 07/03/19at 16:35; Start 07/03/19 at 16:30; Stop 07/03/19 at 16:31; Status DC Methylprednisolone Sodium Succinate (SOLU-Medrol 125MG VIAL) 125 mg 1X ONCE IV Last administered on 07/03/19at 18:11; Start 07/03/19 at 16:30; Stop 07/03/19 at 16:31; Status DC Sodium Chloride 1,000 ml @ 1,000 mls/hr 1X ONCE IV ; Start 07/03/19 at 20:00; Stop 07/03/19 at 20:59; Status DC Sodium Chloride 1,000 ml @ 1,000 mls/hr 1X ONCE IV ; Start 07/03/19 at 20:00; Stop 07/03/19 at 20:59; Status DC Ondansetron HCl (Zofran) 4 mg PRN Q8HRS PRN IV NAUSEA/VOMITING; Start 07/03/19 at 20:00; Stop 07/04/19 at 19:59; Status DC Morphine Sulfate (Morphine Sulfate) 4 mg PRN Q2HR PRN IV PAIN; Start 07/03/19 at 20:00; Stop 07/04/19 at 19:59; Status DC Acetaminophen (Tylenol) 650 mg PRN Q4HRS PRN PO FEVER Last administered on 07/04/19at 13:25; Start 07/03/19 at 20:00; Stop 07/04/19 at 19:59; Status DC Albuterol/ Ipratropium (Duoneb) 3 ml RTQID NEB Last administered on 07/04/19at 19:59; Start 07/03/19 at 20:00; Stop 07/04/19 at 19:59; Status DC Levofloxacin/ Dextrose 100 ml @ 100 mls/hr 1X ONCE IV Last administered on 07/03/19at 22:44; Start 07/03/19 at 20:00; Stop 07/03/19 at 20:59; Status DC Vancomycin HCl (Vanco Per Pharmacy) 1 each PRN DAILY PRN MC SEE COMMENTS Last administered on 07/06/19at 00:44; Start 07/03/19 at 20:00 Vancomycin HCl 2 gm/Sodium Chloride 500 ml @ 250 mls/hr 1X ONCE IV Last administered on 07/04/19 00:11; Start 07/03/19 at 20:30; Stop 07/03/19 at 22:29; Status DC Prednisone (Prednisone) 40 mg DAILY PO Last administered on 07/05/19 10:26; Start 07/04/19 at 09:00 Vancomycin HCl 1.5 gm/Sodium Chloride 500 ml @ 250 mls/hr Q24H IV Last administered on 07/06/19 00:03; Start 07/05/19 at 00:00 Vancomycin HCl (Vancomycin Trough Level) 1 each 1X ONCE MC ; Start 07/05/19 at 23:30; Stop 07/05/19 at 23:31; Status DC Lactobacillus Rhamnosus (Culturelle) 1 cap BID PO Last administered on 07/05/19 21:13; Start 07/04/19 at 21:00 Multivitamins (Thera M Plus) 1 tab DAILY PO Last administered on 07/05/19at 10:25; Start 07/04/19 at 12:00 Levofloxacin/ Dextrose 50 ml @ 50 mls/hr Q24H IV Last administered on 07/05/19 19:34; Start 07/04/19 at 14:00 Albuterol/ Ipratropium (Duoneb) 3 ml RTQID NEB Last administered on 07/06/19at 07:26; Start 07/05/19 at 08:00 Acetaminophen (Tylenol) 500 mg PRN Q6HRS PRN PO MILD PAIN / TEMP Last administered on 07/05/19at 19:36; Start 07/05/19 at 11:00 Ondansetron HCl (Zofran) 4 mg PRN Q6HRS PRN IVP NAUSEA/VOMITING; Start 07/06/19 at 08:15 Guaifenesin (Robitussin Dm) 10 ml PRN Q6HRS PRN PO COUGH; Start 07/06/19 at 08:15 Calcium Carbonate/ Glycine (Tums) 500 mg PRN AFTMEALHC PRN PO INDIGESTION; Start 07/06/19 at 08:15 Temazepam (Restoril) 7.5 mg PRN QHS PRN PO INSOMNIA; Start 07/06/19 at 08:15 Magnesium Hydroxide (Milk Of Magnesia) 2,400 mg PRN DAILY PRN PO CONSTIPATION; Start 07/06/19 at 08:15 Clonidine HCl (Catapres) 0.1 mg PRN Q1HR PRN PO HYPERTENSION; Start 07/06/19 at 08:15 Amlodipine Besylate (Norvasc) 10 mg DAILY PO ; Start 07/06/19 at 09:00 Aspirin (Ecotrin) 81 mg DAILYWBKFT PO ; Start 07/06/19 at 09:00 Famotidine (Pepcid) 20 mg HS PO ; Start 07/06/19 at 21:00 Furosemide (Lasix) 20 mg DAILY PO ; Start 07/06/19 at 09:00 Haloperidol (Haldol) 2 mg BID PO ; Start 07/06/19 at 09:00 Hydralazine HCl (Apresoline) 25 mg TID PO ; Start 07/06/19 at 09:00 Acetaminophen/ Hydrocodone Bitart (Lortab 5/325) 1 tab PRN Q4HRS PRN PO PAIN; Start 07/06/19 at 08:15 Metoprolol Tartrate (Lopressor) 100 mg BID PO ; Start 07/06/19 at 09:00 Nystatin (Nystop) 1 alberto BID TP ; Start 07/06/19 at 09:00 Olanzapine (ZyPREXA) 2.5 mg DAILY PO ; Start 07/06/19 at 09:00 Polyethylene Glycol (miraLAX PACKET) 17 gm PRN DAILY PRN PO CONSTIPATION 1ST CHOICE; Start 07/06/19 at 08:15 Albuterol Sulfate (Ventolin Neb Soln) 2.5 mg PRN Q6HRS PRN NEB SHORTNESS OF BREATH; Start 07/06/19 at 08:30 Losartan Potassium (Cozaar) 100 mg DAILY PO ; Start 07/06/19 at 09:00 Potassium Chloride (Klor-Con) 20 meq DAILYWBKFT PO ; Start 07/06/19 at 09:00 Active Scripts Active Proventil Hfa (Albuterol Sulfate) 6.7 Gm Hfa.aer.ad 1 Puff INH PRN Q6HRS PRN Prednisone 50 Mg Tablet 1 Tab PO DAILY Prednisone (Prednisone) 10 Mg Tablet 10 Mg PO DAILY 2 Days Prednisone 20 Mg Tablet 1 Tab PO BID 2 Days Prednisone 50 Mg Tablet 50 Mg PO DAILY 3 Days Hydrocodone-Apap 5-325 (Hydrocodone Bit/Acetaminophen) 1 Tab Tablet 1 Tab PO PRN Q4HRS PRN 5 Days Doxycycline Hyclate 100 Mg Tablet 100 Mg PO BID 2 Days Haloperidol 2 Mg Tablet 1 Tab PO BID Olanzapine 2.5 Mg Tablet 2.5 Mg PO DAILY MDD 1 30 Days Amlodipine Besylate 10 Mg Tablet 10 Mg PO DAILY MDD 1 30 Days Hydralazine Hcl 25 Mg Tablet 25 Mg PO TID MDD 1 30 Days Colcrys (Colchicine) 0.6 Mg Tablet 0.6 Mg PO DAILY 30 Days Aspirin Ec (Aspirin) 81 Mg Tablet.dr 81 Mg PO DAILYWBKFT 30 Days Duoneb 0.5-3(2.5) Mg/3 Ml (Albuterol/Ipratropium) 3 Ml Ampul.neb 3 Ml NEB RTQID 30 Days Metoprolol Tartrate 50 Mg Tablet 2 Tab PO BID 30 Days Reported Nystatin 15 Gm Powder 1 Alberto TP BID Milk Of Magnesia (Magnesium Hydroxide) 400 Mg/5 Ml Oral.susp 400 Mg PO PRN DAILY PRN Mag-Oxide (Magnesium Oxide) 400 Mg Tablet 1 Tab PO BID Losartan Potassium 100 Mg Tablet 100 Mg PO DAILY Lasix (Furosemide) 20 Mg Tablet 1 Tab PO DAILY Potassium Chloride 20 Meq Tablet.er 20 Meq PO DAILY Miralax (Polyethylene Glycol 3350) 17 Gm Powd.pack 1 Packet PO PRN DAILY PRN Tylenol (Acetaminophen) 325 Mg Tablet 1 Tab PO PRN Q6HRS PRN Famotidine 20 Mg Tablet 20 Mg PO HS Vitals/I & O Vital Sign - Last 24 Hours 07/05/19 07/05/19 07/05/19 07/05/19 11:00 11:38 15:00 15:32 Temp 97.7 98.0 97.7 98.0 Pulse 70 70 Resp 18 16 B/P (MAP) 129/59 (82) 127/67 (87) Pulse Ox 97 96 97 97 O2 Delivery Room Air Room Air Room Air Room Air 07/05/19 07/05/19 07/05/19 07/05/19 19:00 20:00 20:25 23:00 Temp 97.9 97.5 97.9 97.5 Pulse 71 70 Resp 20 20 B/P (MAP) 133/76 (95) 134/75 (94) Pulse Ox 97 97 97 O2 Delivery Room Air Room Air Room Air Room Air 07/06/19 07/06/19 07/06/19 03:19 07:29 07:59 Temp 97.5 97.7 97.5 97.7 Pulse 71 67 Resp 20 18 B/P (MAP) 145/82 (103) 133/68 (89) Pulse Ox 97 97 97 O2 Delivery Room Air Room Air Room Air Intake and Output 07/05/19 07/05/19 07/06/19 15:00 23:00 07:00 Intake Total 180 ml Output Total 1100 ml Balance 180 ml -1100 ml RAJIV DIAMOND MD Jul 06, 2019 09:33
[2019-07-06] MEDS: LOSARTAN POTASSIUM 50 MG TABLET. PO SCH (09:53)
[2019-07-06] MEDS: FUROSEMIDE 20 MG TABLET PO SCH (09:53)
[2019-07-06] MEDS: hydrALAZINE 25 MG TABLET PO SCH ×3 (09:54→20:51)
[2019-07-06] MEDS: amLODIPine BESYLATE 10 MG TABLET PO SCH (09:54)
[2019-07-06] MEDS: ASPIRIN ENTERIC COATED 81 MG TABLET.DR. PO SCH (09:54)
[2019-07-06] MEDS: predniSONE 20 MG TABLET PO SCH (09:54)
[2019-07-06] MEDS: LACTOBACILLUS RHAMNOSUS GG 1 CAPSULE. PO SCH ×2 (09:54→20:50)
[2019-07-06] MEDS: POTASSIUM CHLORIDE 20 MEQ TABLET.ER. PO SCH (09:54)
[2019-07-06] MEDS: MULTIVITAMIN with MINERAL TABLET. PO SCH (09:54)
[2019-07-06] MEDS: HALOPERIDOL 2 MG TABLET. PO SCH ×2 (09:55→20:50)
[2019-07-06] MEDS: OLANZapine 2.5 MG TABLET PO SCH (09:55)
[2019-07-06] MEDS: METOPROLOL TART IMMED RELEASE 50 MG TABLET. PO SCH ×2 (09:55→20:51)
[2019-07-06] MEDS: NYSTATIN TOPICAL POWDER 15GM BOTTLE. TP SCH ×2 (09:58→20:59)
--- NOTE | 2019-07-06 10:28 | PDOC ---
PULMONARY PROGRESS NOTES Subjective Pt. is up to chair, on room air, intermittent confusion. Denies SOB, denies increased cough. Vitals Vital Signs Date Time Temp Pulse Resp B/P (MAP) Pulse Ox O2 Delivery O2 Flow Rate FiO2 07/06/19 09:55 67 133/68 07/06/19 07:59 97.7 18 97 Room Air 97.7 ROS: No Nausea, No Chest Pain, No Abdominal Pain, No Increase Cough General: Alert, No acute distress, Confused Lungs: Crackles (bases ) Cardiovascular: S1, S2 Abdomen: Soft Neuro Exam: Alert Extremities: No Edema Skin: Warm, Dry Labs Laboratory Tests Test 07/05/19 21:00 07/05/19 23:15 07/06/19 01:45 07/06/19 05:50 Glucose (Fingerstick) 124 mg/dL (70-99) Vancomycin Level Trough 16.4 mcg/mL (10.0-20.0) Vancomycin Last Dose Date 07/05/19 Vancomycin Last Dose Time 0000 Urine Collection Type Unknown Urine Color Yellow Urine Clarity Clear Urine pH 6.0 Urine Specific [place] 1.010 Urine Protein Negative mg/dL (NEG-TRACE) Urine Glucose (UA) Negative mg/dL (NEG) Urine Ketones (Stick) Negative mg/dL (NEG) Urine Blood Negative (NEG) Urine Nitrite Negative (NEG) Urine Bilirubin Negative (NEG) Urine Urobilinogen Dipstick 0.2 mg/dL (0.2 mg/dL) Urine Leukocyte Esterase Negative (NEG) Urine RBC 0 /HPF (0-2) Urine WBC Occ /HPF (0-4) Urine Squamous Epithelial Cells Occ /LPF Urine Amorphous Sediment Present /HPF Urine Bacteria 0 /HPF (0-FEW) Urine Mucus Slight /LPF White Blood Count 11.5 x10^3/uL (4.0-11.0) Red Blood Count 5.09 x10^6/uL (4.30-5.70) Hemoglobin 15.6 g/dL (13.0-17.5) Hematocrit 49.0 % (39.0-53.0) Mean Corpuscular Volume 96 fL (79-100) Mean Corpuscular Hemoglobin 31 pg (25-35) Mean Corpuscular Hemoglobin Concent 32 g/dL (31-37) Red Cell Distribution Width 17.0 % (11.5-14.5) Platelet Count 114 x10^3/uL (140-400) Neutrophils (%) (Auto) 85 % (31-73) Lymphocytes (%) (Auto) 7 % (24-48) Monocytes (%) (Auto) 8 % (0-9) Eosinophils (%) (Auto) 0 % (0-3) Basophils (%) (Auto) 0 % (0-3) Neutrophils # (Auto) 9.7 x10^3/uL (1.8-7.7) Lymphocytes # (Auto) 0.8 x10^3/uL (1.0-4.8) Monocytes # (Auto) 1.0 x10^3/uL (0.0-1.1) Eosinophils # (Auto) 0.0 x10^3/uL (0.0-0.7) Basophils # (Auto) 0.0 x10^3/uL (0.0-0.2) Sodium Level 144 mmol/L (136-145) Potassium Level 3.8 mmol/L (3.5-5.1) Chloride Level 107 mmol/L (98-107) Carbon Dioxide Level 24 mmol/L (21-32) Anion Gap 13 (6-14) Blood Urea Nitrogen 25 mg/dL (8-26) Creatinine 1.6 mg/dL (0.7-1.3) Estimated GFR (Cockcroft-Gault) 50.2 BUN/Creatinine Ratio 16 (6-20) Glucose Level 90 mg/dL (70-99) Calcium Level 8.8 mg/dL (8.5-10.1) Total Bilirubin 0.7 mg/dL (0.2-1.0) Aspartate Amino Transf (AST/SGOT) 20 U/L (15-37) Alanine Aminotransferase (ALT/SGPT) 18 U/L (16-63) Alkaline Phosphatase 99 U/L (46-116) Total Protein 7.1 g/dL (6.4-8.2) Albumin 2.9 g/dL (3.4-5.0) Albumin/Globulin Ratio 0.7 (1.0-1.7) Laboratory Tests Test 07/05/19 21:00 07/05/19 23:15 07/06/19 01:45 07/06/19 05:50 Glucose (Fingerstick) 124 mg/dL (70-99) Vancomycin Level Trough 16.4 mcg/mL (10.0-20.0) Vancomycin Last Dose Date 07/05/19 Vancomycin Last Dose Time 0000 Urine Collection Type Unknown Urine Color Yellow Urine Clarity Clear Urine pH 6.0 Urine Specific [place] 1.010 Urine Protein Negative mg/dL (NEG-TRACE) Urine Glucose (UA) Negative mg/dL (NEG) Urine Ketones (Stick) Negative mg/dL (NEG) Urine Blood Negative (NEG) Urine Nitrite Negative (NEG) Urine Bilirubin Negative (NEG) Urine Urobilinogen Dipstick 0.2 mg/dL (0.2 mg/dL) Urine Leukocyte Esterase Negative (NEG) Urine RBC 0 /HPF (0-2) Urine WBC Occ /HPF (0-4) Urine Squamous Epithelial Cells Occ /LPF Urine Amorphous Sediment Present /HPF Urine Bacteria 0 /HPF (0-FEW) Urine Mucus Slight /LPF White Blood Count 11.5 x10^3/uL (4.0-11.0) Red Blood Count 5.09 x10^6/uL (4.30-5.70) Hemoglobin 15.6 g/dL (13.0-17.5) Hematocrit 49.0 % (39.0-53.0) Mean Corpuscular Volume 96 fL (79-100) Mean Corpuscular Hemoglobin 31 pg (25-35) Mean Corpuscular Hemoglobin Concent 32 g/dL (31-37) Red Cell Distribution Width 17.0 % (11.5-14.5) Platelet Count 114 x10^3/uL (140-400) Neutrophils (%) (Auto) 85 % (31-73) Lymphocytes (%) (Auto) 7 % (24-48) Monocytes (%) (Auto) 8 % (0-9) Eosinophils (%) (Auto) 0 % (0-3) Basophils (%) (Auto) 0 % (0-3) Neutrophils # (Auto) 9.7 x10^3/uL (1.8-7.7) Lymphocytes # (Auto) 0.8 x10^3/uL (1.0-4.8) Monocytes # (Auto) 1.0 x10^3/uL (0.0-1.1) Eosinophils # (Auto) 0.0 x10^3/uL (0.0-0.7) Basophils # (Auto) 0.0 x10^3/uL (0.0-0.2) Sodium Level 144 mmol/L (136-145) Potassium Level 3.8 mmol/L (3.5-5.1) Chloride Level 107 mmol/L (98-107) Carbon Dioxide Level 24 mmol/L (21-32) Anion Gap 13 (6-14) Blood Urea Nitrogen 25 mg/dL (8-26) Creatinine 1.6 mg/dL (0.7-1.3) Estimated GFR (Cockcroft-Gault) 50.2 BUN/Creatinine Ratio 16 (6-20) Glucose Level 90 mg/dL (70-99) Calcium Level 8.8 mg/dL (8.5-10.1) Total Bilirubin 0.7 mg/dL (0.2-1.0) Aspartate Amino Transf (AST/SGOT) 20 U/L (15-37) Alanine Aminotransferase (ALT/SGPT) 18 U/L (16-63) Alkaline Phosphatase 99 U/L (46-116) Total Protein 7.1 g/dL (6.4-8.2) Albumin 2.9 g/dL (3.4-5.0) Albumin/Globulin Ratio 0.7 (1.0-1.7) Medications Active Scripts Medications Dose Route/Sig Max Daily Dose Days Date Category Proventil Hfa (Albuterol Sulfate) 6.7 Gm Hfa.aer.ad 1 Puff INH PRN Q6HRS PRN 03/10/19 Rx Prednisone 50 Mg Tablet 1 Tab PO DAILY 03/10/19 Rx Prednisone (Prednisone) 10 Mg Tablet 10 Mg PO DAILY 2 01/15/19 Rx Prednisone 20 Mg Tablet 1 Tab PO BID 2 01/15/19 Rx Prednisone 50 Mg Tablet 50 Mg PO DAILY 3 01/15/19 Rx Hydrocodone-Apap 5-325 (Hydrocodone Bit/Acetaminophen) 1 Tab Tablet 1 Tab PO PRN Q4HRS PRN 5 01/15/19 Rx Doxycycline Hyclate 100 Mg Tablet 100 Mg PO BID 2 01/15/19 Rx Haloperidol 2 Mg Tablet 1 Tab PO BID 10/22/18 Rx Olanzapine 2.5 Mg Tablet 2.5 Mg PO DAILY MDD 1 30 10/22/18 Rx Amlodipine Besylate 10 Mg Tablet 10 Mg PO DAILY MDD 1 30 10/22/18 Rx Hydralazine Hcl 25 Mg Tablet 25 Mg PO TID MDD 1 30 10/22/18 Rx Nystatin 15 Gm Powder 1 Alberto TP BID 10/17/18 Reported Milk Of Magnesia (Magnesium Hydroxide) 400 Mg/5 Ml Oral.susp 400 Mg PO PRN DAILY PRN 10/17/18 Reported Mag-Oxide (Magnesium Oxide) 400 Mg Tablet 1 Tab PO BID 10/17/18 Reported Losartan Potassium 100 Mg Tablet 100 Mg PO DAILY 10/17/18 Reported Lasix (Furosemide) 20 Mg Tablet 1 Tab PO DAILY 10/17/18 Reported Potassium Chloride 20 Meq Tablet.er 20 Meq PO DAILY 10/15/18 Reported Colcrys (Colchicine) 0.6 Mg Tablet 0.6 Mg PO DAILY 30 01/03/18 Rx Aspirin Ec (Aspirin) 81 Mg Tablet.dr 81 Mg PO DAILYWBKFT 30 01/03/18 Rx Duoneb 0.5-3(2.5) Mg/3 Ml (Albuterol/Ipratropium) 3 Ml Ampul.neb 3 Ml NEB RTQID 30 01/03/18 Rx Metoprolol Tartrate 50 Mg Tablet 2 Tab PO BID 30 01/03/18 Rx Miralax (Polyethylene Glycol 3350) 17 Gm Powd.pack 1 Packet PO PRN DAILY PRN 03/09/16 Reported Tylenol (Acetaminophen) 325 Mg Tablet 1 Tab PO PRN Q6HRS PRN 03/09/16 Reported Famotidine 20 Mg Tablet 20 Mg PO HS 03/05/16 Reported Impression . 1. Progressive dyspnea, multifactorial. 2. Acute hypoxic respiratory failure. 3. acute exacerbation of chronic obstructive pulmonary disease. 4. suspected pneumonia 5. Dementia. 6. History of tobacco dependence, in remission. 7. Chronic heart failure. 8. Hypertension. 9. Suspect acute on chronic diastolic heart failure. 10. Chronic renal insufficiency. CT chest 07/15/19 IMPRESSION: 1. There is some mild irregular linear opacities at both lung bases that are similar to prior study. This could be related to scarring and/or stable mild interstitial fibrosis. 2. Coronary artery calcifications and mild ectasia of the ascending thoracic aorta. 3. Mild diffuse bronchial wall thickening, nonspecific. Consider acute or chronic bronchial inflammatory process. 4. Pleural-parenchymal changes at the left lung base, likely scar or atelectasis. 5. Indeterminate low-density focus at the upper pole left kidney is stable from the 2011 exam and probably benign. Plan . 1. Respiratory status is clinically stable 2. reviewed CT, appears to be old scarring less likely new infection 3. cont. steroids with taper back to baseline steroids at 10mg daily 4. cont. leavquin D/C vanc 5. supplemental oxygen PRN and bronchodilators 6. encourage ambulation . ROSE GIRALDO MD Jul 06, 2019 10:28
--- NOTE | 2019-07-06 10:52 | PDOC ---
Provider Note Provider Note Vascular Surgery Consult dictated 84 year old male with small clean ulcers on the shins which appear to be healing with good ganulation tissue. He does have PVD however no symptoms of rest pain and no tissue breakdown in the feet. Would recommend continued wound care. Improving circulation will not significantly help heal the wounds since in the cruz area and not the feet. If these do not heal in the future wound consider an angiogram however this will have risk with his renal insufficiency. No vascular intervention needed at this point. BRENDA VELA MD Jul 06, 2019 10:51
[2019-07-06 11:59] VITALS: BP 112/59
--- NOTE | 2019-07-06 15:48 | CONS ---
DATE OF CONSULTATION: 07/06/2019 CHIEF COMPLAINT: Peripheral arterial disease. HISTORY OF PRESENT ILLNESS: The patient is an 84-year-old male who has been admitted to the hospital with respiratory disease. He has a history of coronary artery disease, COPD, renal insufficiency and was admitted for wheezing and shortness of breath. He is being treated for COPD exacerbation with steroid medications. Vascular Surgery was consulted because of arterial disease in his lower extremities. He has had a long history of small ulcers in his shins in the bilateral lower extremities. He has chronic swelling and stasis type skin changes in his lower legs. He is quite confused during my evaluation; therefore, could not give me a very clear history. Per chart review, he lives in a residential and has been receiving wound care at his facility. He reports no pain in his legs. REVIEW OF SYSTEMS: Unobtainable because of his confusion. PAST MEDICAL HISTORY: Includes: Coronary artery disease, congestive heart failure, hypertension, hyperlipidemia, COPD, acid reflux, depression, chronic renal insufficiency, osteoarthritis, and prostate enlargement. PAST SURGICAL HISTORY: Includes pacemaker, appendectomy, and cholecystectomy. FAMILY HISTORY: Includes heart disease and hypertension. SOCIAL HISTORY: He does not smoke or drink alcohol. PHYSICAL EXAMINATION: GENERAL: The patient is awake and alert, currently in no apparent distress, but he is slightly confused. VITAL SIGNS: He is afebrile. His vital signs are stable. NECK: Supple with no carotid bruits. HEART: Regular rate and rhythm without murmurs. LUNGS: Have bilateral breath sounds to auscultation. ABDOMEN: Soft, nondistended and nontender. EXTREMITIES: His bilateral lower extremities are warm. He has [id number] swelling of his lower legs, he has chronic skin changes with hyperpigmentation and thickening of the skin throughout the calf and ankles consistent with stasis changes. On his left and right cruz, he has a small open ulcers deep to the superficial subcutaneous tissue level with good granulation tissue within the wound beds. No surrounding erythema, no drainage, no signs of infection. His right and left foot have mild swelling. There is no tissue breakdown in his feet and no pain. NEUROLOGIC: He is awake and alert, moving all four extremities with good strength, he has normal speech, but he is confused. Review of arterial duplex scan of the lower extremities shows occlusion of the left superficial femoral artery and signs of right superficial femoral artery disease, both of which appear chronic with collateral circulation. IMPRESSION: 1. Superficial ulcers on the right and left shins of his lower legs, no foot wounds and no pain in his feet. 2. Bilateral lower extremity peripheral arterial disease. 3. Chronic obstructive pulmonary disease exacerbation. 4. Chronic renal insufficiency. PLAN: The patient has ulcers located in the lower legs in the area of the shins that are small and superficial with good granulation tissue. There were no signs of infection. There is no tissue breakdown or ulcers in his feet. He does have peripheral arterial disease of his bilateral lower extremities; however, no symptoms of rest pain in the feet and no tissue breakdown in his feet. His sores on his shins are likely secondary to chronic stasis skin changes. They are healing well with good granulation tissue. I do not feel he needs revascularization since this will not significantly improve healing of ulcers in the shins. He also has multiple medical problems including chronic renal insufficiency and would be at risk of worsening renal disease with contrast from an angiogram or bypass surgery. I would recommend continuing wound care since these wounds look healthy and are healing. If they do not heal in the future, then we may consider an angiogram of his lower extremities. BRENDA VELA MD DR: LULY/jayme JOB#: [id number] / [id number]
[2019-07-06 16:59] VITALS: BP 134/58
[2019-07-06 19:03] VITALS: BP 117/61
[2019-07-06] MEDS: FAMOTIDINE 20 MG TABLET. PO SCH (20:50)
[2019-07-06] MEDS: ACETAMINOPHEN 500 MG TABLET PO PRN (20:55)
[2019-07-06 23:02] VITALS: BP 149/84
[2019-07-07 03:16] VITALS: BP 156/89
[2019-07-07 07:00] VITALS: BP 150/99
[2019-07-07] MEDS: IPRATRPIUM/ALBUTEROL 0.5/2.5MG 3 ML NEBU. NEB SCH ×4 (08:06→19:46)
[2019-07-07] MEDS: predniSONE 20 MG TABLET PO SCH (08:19)
[2019-07-07] MEDS: OLANZapine 2.5 MG TABLET PO SCH (08:19)
[2019-07-07] MEDS: METOPROLOL TART IMMED RELEASE 50 MG TABLET. PO SCH ×2 (08:19→20:57)
[2019-07-07] MEDS: amLODIPine BESYLATE 10 MG TABLET PO SCH (08:20)
[2019-07-07] MEDS: FUROSEMIDE 20 MG TABLET PO SCH (08:20)
[2019-07-07] MEDS: HALOPERIDOL 2 MG TABLET. PO SCH ×2 (08:20→20:56)
[2019-07-07] MEDS: LACTOBACILLUS RHAMNOSUS GG 1 CAPSULE. PO SCH ×2 (08:20→20:56)
[2019-07-07] MEDS: hydrALAZINE 25 MG TABLET PO SCH ×3 (08:20→20:57)
[2019-07-07] MEDS: NYSTATIN TOPICAL POWDER 15GM BOTTLE. TP SCH ×2 (08:21→21:00)
[2019-07-07] MEDS: POTASSIUM CHLORIDE 20 MEQ TABLET.ER. PO SCH (10:48)
[2019-07-07] MEDS: LOSARTAN POTASSIUM 50 MG TABLET. PO SCH (10:49)
[2019-07-07] MEDS: ASPIRIN ENTERIC COATED 81 MG TABLET.DR. PO SCH (10:49)
[2019-07-07] MEDS: MULTIVITAMIN with MINERAL TABLET. PO SCH (10:49)
--- NOTE | 2019-07-07 10:51 | PDOC ---
PROGRESS NOTES Chief Complaint Chief Complaint acute exacerbation of COPD, steroids, nebs, no abx, no sputum or fever, pulm consult acute hypoxic resp failure Hepatic cirrhosis or other fibrotic process. mild tricuspid regurgitation. RVSP 48 mm Hg. c/w moderate pulm htn Diffuse increased interstitial opacity due to chronic interstitial change or trace interstitial infiltrate. The superimposed on suspected bilateral basilar atelectasis. by cxr mild malnutrition in obesity, BMI 35 dementia, w. history of behavioral d/o CAD, htn, lipids CKD 3 Small complex renal cysts BPH, Aspiration risk History of Present Illness History of Present Illness up in chair - fully awake A transfer from tele floor HE has no complaints, less wheezy Waiting for SNU CT: 1. There is some mild irregular linear opacities at both lung bases that are similar to prior study. This could be related to scarring and/or stable mild interstitial fibrosis. 2. Coronary artery calcifications and mild ectasia of the ascending thoracic aorta. 3. Mild diffuse bronchial wall thickening, nonspecific. Consider acute or chronic bronchial inflammatory process. 4. Pleural-parenchymal changes at the left lung base, likely scar or atelectasis. 5. Indeterminate low-density focus at the upper pole left kidney is stable from the 2011 exam and probably benign. I provided him a copy of the above Pulmo on case,added some zosyn 07/05 NEeds SNU and pt is agreeable - came from home SW on case PLAN: IV vanc zosyn SNU Supportive mneds I reconciled home meds Robitussin etc FUll code SNU monday ' LAbs, follow cx Vitals Vitals Vital Signs Date Time Temp Pulse Resp B/P (MAP) Pulse Ox O2 Delivery O2 Flow Rate FiO2 07/07/19 08:20 70 150/99 07/07/19 08:07 97 Room Air 07/07/19 07:00 97.7 19 97.7 Physical Exam General: Alert, Cooperative, No acute distress, Other (disoriented 0/3,. consistent with dementia, does not know year or president) Heart: Regular rate, No murmurs Lungs: Crackles (bases ) Abdomen: Normal bowel sounds, Soft Extremities: No cyanosis, Other (dorsal pedal pulses absent) Skin: No rashes, No significant lesion Review of Systems Review of Systems admits to gen weak, no inc in soa, no fevers, non toxic appearing, neg 14 pt Assessment and Plan Assessmemt and Plan Problems Medical Problems: (1) Acute renal failure Status: Acute (2) COPD (chronic obstructive pulmonary disease) Status: Acute (3) Elevated lactic acid level Status: Acute Comment Review of Relevant I have reviewed the following items patrick (where applicable) has been applied. Labs Laboratory Tests Test 07/05/19 21:00 07/05/19 23:15 07/06/19 01:45 07/06/19 05:50 Glucose (Fingerstick) 124 mg/dL (70-99) Vancomycin Level Trough 16.4 mcg/mL (10.0-20.0) Vancomycin Last Dose Date 07/05/19 Vancomycin Last Dose Time 0000 Urine Collection Type Unknown Urine Color Yellow Urine Clarity Clear Urine pH 6.0 Urine Specific [place] 1.010 Urine Protein Negative mg/dL (NEG-TRACE) Urine Glucose (UA) Negative mg/dL (NEG) Urine Ketones (Stick) Negative mg/dL (NEG) Urine Blood Negative (NEG) Urine Nitrite Negative (NEG) Urine Bilirubin Negative (NEG) Urine Urobilinogen Dipstick 0.2 mg/dL (0.2 mg/dL) Urine Leukocyte Esterase Negative (NEG) Urine RBC 0 /HPF (0-2) Urine WBC Occ /HPF (0-4) Urine Squamous Epithelial Cells Occ /LPF Urine Amorphous Sediment Present /HPF Urine Bacteria 0 /HPF (0-FEW) Urine Mucus Slight /LPF White Blood Count 11.5 x10^3/uL (4.0-11.0) Red Blood Count 5.09 x10^6/uL (4.30-5.70) Hemoglobin 15.6 g/dL (13.0-17.5) Hematocrit 49.0 % (39.0-53.0) Mean Corpuscular Volume 96 fL (79-100) Mean Corpuscular Hemoglobin 31 pg (25-35) Mean Corpuscular Hemoglobin Concent 32 g/dL (31-37) Red Cell Distribution Width 17.0 % (11.5-14.5) Platelet Count 114 x10^3/uL (140-400) Neutrophils (%) (Auto) 85 % (31-73) Lymphocytes (%) (Auto) 7 % (24-48) Monocytes (%) (Auto) 8 % (0-9) Eosinophils (%) (Auto) 0 % (0-3) Basophils (%) (Auto) 0 % (0-3) Neutrophils # (Auto) 9.7 x10^3/uL (1.8-7.7) Lymphocytes # (Auto) 0.8 x10^3/uL (1.0-4.8) Monocytes # (Auto) 1.0 x10^3/uL (0.0-1.1) Eosinophils # (Auto) 0.0 x10^3/uL (0.0-0.7) Basophils # (Auto) 0.0 x10^3/uL (0.0-0.2) Sodium Level 144 mmol/L (136-145) Potassium Level 3.8 mmol/L (3.5-5.1) Chloride Level 107 mmol/L (98-107) Carbon Dioxide Level 24 mmol/L (21-32) Anion Gap 13 (6-14) Blood Urea Nitrogen 25 mg/dL (8-26) Creatinine 1.6 mg/dL (0.7-1.3) Estimated GFR (Cockcroft-Gault) 50.2 BUN/Creatinine Ratio 16 (6-20) Glucose Level 90 mg/dL (70-99) Calcium Level 8.8 mg/dL (8.5-10.1) Total Bilirubin 0.7 mg/dL (0.2-1.0) Aspartate Amino Transf (AST/SGOT) 20 U/L (15-37) Alanine Aminotransferase (ALT/SGPT) 18 U/L (16-63) Alkaline Phosphatase 99 U/L (46-116) Total Protein 7.1 g/dL (6.4-8.2) Albumin 2.9 g/dL (3.4-5.0) Albumin/Globulin Ratio 0.7 (1.0-1.7) Microbiology 07/03/19 Blood Culture - Preliminary, Resulted NO GROWTH AFTER 3 DAYS Medications Current Medications Albuterol/ Ipratropium (Duoneb) 3 ml 1X ONCE NEB Last administered on 07/03/19at 16:35; Start 07/03/19 at 16:30; Stop 07/03/19 at 16:31; Status DC Methylprednisolone Sodium Succinate (SOLU-Medrol 125MG VIAL) 125 mg 1X ONCE IV Last administered on 07/03/19at 18:11; Start 07/03/19 at 16:30; Stop 07/03/19 at 16:31; Status DC Sodium Chloride 1,000 ml @ 1,000 mls/hr 1X ONCE IV ; Start 07/03/19 at 20:00; Stop 07/03/19 at 20:59; Status DC Sodium Chloride 1,000 ml @ 1,000 mls/hr 1X ONCE IV ; Start 07/03/19 at 20:00; Stop 07/03/19 at 20:59; Status DC Ondansetron HCl (Zofran) 4 mg PRN Q8HRS PRN IV NAUSEA/VOMITING; Start 07/03/19 at 20:00; Stop 07/04/19 at 19:59; Status DC Morphine Sulfate (Morphine Sulfate) 4 mg PRN Q2HR PRN IV PAIN; Start 07/03/19 at 20:00; Stop 07/04/19 at 19:59; Status DC Acetaminophen (Tylenol) 650 mg PRN Q4HRS PRN PO FEVER Last administered on 07/04/19at 13:25; Start 07/03/19 at 20:00; Stop 07/04/19 at 19:59; Status DC Albuterol/ Ipratropium (Duoneb) 3 ml RTQID NEB Last administered on 07/04/19at 19:59; Start 07/03/19 at 20:00; Stop 07/04/19 at 19:59; Status DC Levofloxacin/ Dextrose 100 ml @ 100 mls/hr 1X ONCE IV Last administered on 07/03/19at 22:44; Start 07/03/19 at 20:00; Stop 07/03/19 at 20:59; Status DC Vancomycin HCl (Vanco Per Pharmacy) 1 each PRN DAILY PRN MC SEE COMMENTS Last administered on 07/06/19at 00:44; Start 07/03/19 at 20:00; Stop 07/06/19 at 11:22; Status DC Vancomycin HCl 2 gm/Sodium Chloride 500 ml @ 250 mls/hr 1X ONCE IV Last administered on 07/04/19at 00:11; Start 07/03/19 at 20:30; Stop 07/03/19 at 22:29; Status DC Prednisone (Prednisone) 40 mg DAILY PO Last administered on 07/07/19at 08:19; Start 07/04/19 at 09:00 Vancomycin HCl 1.5 gm/Sodium Chloride 500 ml @ 250 mls/hr Q24H IV Last administered on 07/06/19at 00:03; Start 07/05/19 at 00:00; Stop 07/06/19 at 11:20; Status DC Vancomycin HCl (Vancomycin Trough Level) 1 each 1X ONCE MC Last administered on 07/06/19at 10:00; Start 07/05/19 at 23:30; Stop 07/05/19 at 23:31; Status DC Lactobacillus Rhamnosus (Culturelle) 1 cap BID PO Last administered on 07/07/19at 08:20; Start 07/04/19 at 21:00 Multivitamins (Thera M Plus) 1 tab DAILY PO Last administered on 07/06/19at 09:54; Start 07/04/19 at 12:00 Levofloxacin/ Dextrose 50 ml @ 50 mls/hr Q24H IV Last administered on 07/06/19at 15:51; Start 07/04/19 at 14:00 Albuterol/ Ipratropium (Duoneb) 3 ml RTQID NEB Last administered on 07/07/19at 08:06; Start 07/05/19 at 08:00 Acetaminophen (Tylenol) 500 mg PRN Q6HRS PRN PO MILD PAIN / TEMP Last administered on 07/06/19at 20:55; Start 07/05/19 at 11:00 Ondansetron HCl (Zofran) 4 mg PRN Q6HRS PRN IVP NAUSEA/VOMITING; Start 07/06/19 at 08:15 Guaifenesin (Robitussin Dm) 10 ml PRN Q6HRS PRN PO COUGH; Start 07/06/19 at 08:15 Calcium Carbonate/ Glycine (Tums) 500 mg PRN AFTMEALHC PRN PO INDIGESTION; Start 07/06/19 at 08:15 Temazepam (Restoril) 7.5 mg PRN QHS PRN PO INSOMNIA; Start 07/06/19 at 08:15 Magnesium Hydroxide (Milk Of Magnesia) 2,400 mg PRN DAILY PRN PO CONSTIPATION 2ND CHOICE; Start 07/06/19 at 08:15 Clonidine HCl (Catapres) 0.1 mg PRN Q1HR PRN PO HYPERTENSION; Start 07/06/19 at 08:15 Amlodipine Besylate (Norvasc) 10 mg DAILY PO Last administered on 07/07/19 08:20; Start 07/06/19 at 09:00 Aspirin (Ecotrin) 81 mg DAILYWBKFT PO Last administered on 07/06/19 09:54; Start 07/06/19 at 09:00 Famotidine (Pepcid) 20 mg HS PO Last administered on 07/06/19 20:50; Start 07/06/19 at 21:00 Furosemide (Lasix) 20 mg DAILY PO Last administered on 07/07/19 08:20; Start 07/06/19 at 09:00 Haloperidol (Haldol) 2 mg BID PO Last administered on 07/07/19 08:20; Start 07/06/19 at 09:00 Hydralazine HCl (Apresoline) 25 mg TID PO Last administered on 07/07/19 08: 20; Start 07/06/19 at 09:00 Acetaminophen/ Hydrocodone Bitart (Lortab 5/325) 1 tab PRN Q4HRS PRN PO MODERATE-SEVERE PAIN; Start 07/06/19 at 08:15 Metoprolol Tartrate (Lopressor) 100 mg BID PO Last administered on 07/07/19 08:19; Start 07/06/19 at 09:00 Nystatin (Nystop) 1 alberto BID TP Last administered on 07/07/19 08:21; Start 07/06/19 at 09:00 Olanzapine (ZyPREXA) 2.5 mg DAILY PO Last administered on 07/07/19 08:19; Start 07/06/19 at 09:00 Polyethylene Glycol (miraLAX PACKET) 17 gm PRN DAILY PRN PO CONSTIPATION 1ST CHOICE; Start 07/06/19 at 08:15 Albuterol Sulfate (Ventolin Neb Soln) 2.5 mg PRN Q6HRS PRN NEB SHORTNESS OF BREATH; Start 07/06/19 at 08:30 Losartan Potassium (Cozaar) 100 mg DAILY PO Last administered on 07/06/19 09:53; Start 07/06/19 at 09:00 Potassium Chloride (Klor-Con) 20 meq DAILYWBKFT PO Last administered on 07/06/19 09:54; Start 07/06/19 at 09:00 Active Scripts Active Proventil Hfa (Albuterol Sulfate) 6.7 Gm Hfa.aer.ad 1 Puff INH PRN Q6HRS PRN Prednisone 50 Mg Tablet 1 Tab PO DAILY Prednisone (Prednisone) 10 Mg Tablet 10 Mg PO DAILY 2 Days Prednisone 20 Mg Tablet 1 Tab PO BID 2 Days Prednisone 50 Mg Tablet 50 Mg PO DAILY 3 Days Hydrocodone-Apap 5-325 (Hydrocodone Bit/Acetaminophen) 1 Tab Tablet 1 Tab PO PRN Q4HRS PRN 5 Days Doxycycline Hyclate 100 Mg Tablet 100 Mg PO BID 2 Days Haloperidol 2 Mg Tablet 1 Tab PO BID Olanzapine 2.5 Mg Tablet 2.5 Mg PO DAILY MDD 1 30 Days Amlodipine Besylate 10 Mg Tablet 10 Mg PO DAILY MDD 1 30 Days Hydralazine Hcl 25 Mg Tablet 25 Mg PO TID MDD 1 30 Days Colcrys (Colchicine) 0.6 Mg Tablet 0.6 Mg PO DAILY 30 Days Aspirin Ec (Aspirin) 81 Mg Tablet.dr 81 Mg PO DAILYWBKFT 30 Days Duoneb 0.5-3(2.5) Mg/3 Ml (Albuterol/Ipratropium) 3 Ml Ampul.neb 3 Ml NEB RTQID 30 Days Metoprolol Tartrate 50 Mg Tablet 2 Tab PO BID 30 Days Reported Nystatin 15 Gm Powder 1 Alberto TP BID Milk Of Magnesia (Magnesium Hydroxide) 400 Mg/5 Ml Oral.susp 400 Mg PO PRN DAILY PRN Mag-Oxide (Magnesium Oxide) 400 Mg Tablet 1 Tab PO BID Losartan Potassium 100 Mg Tablet 100 Mg PO DAILY Lasix (Furosemide) 20 Mg Tablet 1 Tab PO DAILY Potassium Chloride 20 Meq Tablet.er 20 Meq PO DAILY Miralax (Polyethylene Glycol 3350) 17 Gm Powd.pack 1 Packet PO PRN DAILY PRN Tylenol (Acetaminophen) 325 Mg Tablet 1 Tab PO PRN Q6HRS PRN Famotidine 20 Mg Tablet 20 Mg PO HS Vitals/I & O Vital Sign - Last 24 Hours 07/06/19 07/06/19 07/06/19 07/06/19 11:59 12:06 15:00 16:09 Temp 98.1 98.1 Pulse 70 Resp 20 B/P (MAP) 112/59 (76) Pulse Ox 96 97 97 O2 Delivery Room Air Room Air Room Air Room Air 07/06/19 07/06/19 07/06/19 07/06/19 16:59 19:03 19:05 20:02 Temp 97.7 98.1 97.7 98.1 Pulse 69 70 Resp 18 20 B/P (MAP) 134/58 (83) 117/61 (79) Pulse Ox 95 99 97 O2 Delivery Room Air Room Air Room Air Room Air 07/06/19 07/06/19 07/06/19 07/07/19 20:51 20:51 23:02 03:16 Temp 97.5 97.7 97.5 97.7 Pulse 70 60 71 70 Resp 16 17 B/P (MAP) 117/61 117/61 149/84 (105) 156/89 (111) Pulse Ox 97 97 O2 Delivery Room Air Room Air 07/07/19 07/07/19 07/07/19 07/07/19 07:00 07:50 08:07 08:19 Temp 97.7 97.7 Pulse 70 70 Resp 19 B/P (MAP) 150/99 (116) 150/99 Pulse Ox 97 97 O2 Delivery Nasal Cannula Room Air Room Air 07/07/19 07/07/19 08:20 08:20 Pulse 70 70 B/P (MAP) 150/99 150/99 Intake and Output 07/06/19 07/06/19 07/07/19 15:00 23:00 07:00 Intake Total 240 ml 120 ml 60 ml Balance 240 ml 120 ml 60 ml RAJIV DIAMOND MD Jul 07, 2019 10:51
[2019-07-07 11:00] VITALS: BP 159/94
--- NOTE | 2019-07-07 11:26 | PDOC ---
PULMONARY PROGRESS NOTES Subjective Pt. is up to chair, on room air, Denies SOB, denies increased cough. Vitals Vital Signs Date Time Temp Pulse Resp B/P (MAP) Pulse Ox O2 Delivery O2 Flow Rate FiO2 07/07/19 10:49 74 151/94 07/07/19 08:07 97 Room Air 07/07/19 07:00 97.7 19 97.7 ROS: No Nausea, No Chest Pain, No Abdominal Pain, No Increase Cough General: Alert, No acute distress, Confused Lungs: Other (dimin in bases ) Cardiovascular: S1, S2 Abdomen: Soft Neuro Exam: Alert Extremities: No Edema Skin: Warm, Dry, Other (BLE open wounds ) Labs Laboratory Tests Test 07/05/19 21:00 07/05/19 23:15 07/06/19 01:45 07/06/19 05:50 Glucose (Fingerstick) 124 mg/dL (70-99) Vancomycin Level Trough 16.4 mcg/mL (10.0-20.0) Vancomycin Last Dose Date 07/05/19 Vancomycin Last Dose Time 0000 Urine Collection Type Unknown Urine Color Yellow Urine Clarity Clear Urine pH 6.0 Urine Specific [place] 1.010 Urine Protein Negative mg/dL (NEG-TRACE) Urine Glucose (UA) Negative mg/dL (NEG) Urine Ketones (Stick) Negative mg/dL (NEG) Urine Blood Negative (NEG) Urine Nitrite Negative (NEG) Urine Bilirubin Negative (NEG) Urine Urobilinogen Dipstick 0.2 mg/dL (0.2 mg/dL) Urine Leukocyte Esterase Negative (NEG) Urine RBC 0 /HPF (0-2) Urine WBC Occ /HPF (0-4) Urine Squamous Epithelial Cells Occ /LPF Urine Amorphous Sediment Present /HPF Urine Bacteria 0 /HPF (0-FEW) Urine Mucus Slight /LPF White Blood Count 11.5 x10^3/uL (4.0-11.0) Red Blood Count 5.09 x10^6/uL (4.30-5.70) Hemoglobin 15.6 g/dL (13.0-17.5) Hematocrit 49.0 % (39.0-53.0) Mean Corpuscular Volume 96 fL (79-100) Mean Corpuscular Hemoglobin 31 pg (25-35) Mean Corpuscular Hemoglobin Concent 32 g/dL (31-37) Red Cell Distribution Width 17.0 % (11.5-14.5) Platelet Count 114 x10^3/uL (140-400) Neutrophils (%) (Auto) 85 % (31-73) Lymphocytes (%) (Auto) 7 % (24-48) Monocytes (%) (Auto) 8 % (0-9) Eosinophils (%) (Auto) 0 % (0-3) Basophils (%) (Auto) 0 % (0-3) Neutrophils # (Auto) 9.7 x10^3/uL (1.8-7.7) Lymphocytes # (Auto) 0.8 x10^3/uL (1.0-4.8) Monocytes # (Auto) 1.0 x10^3/uL (0.0-1.1) Eosinophils # (Auto) 0.0 x10^3/uL (0.0-0.7) Basophils # (Auto) 0.0 x10^3/uL (0.0-0.2) Sodium Level 144 mmol/L (136-145) Potassium Level 3.8 mmol/L (3.5-5.1) Chloride Level 107 mmol/L (98-107) Carbon Dioxide Level 24 mmol/L (21-32) Anion Gap 13 (6-14) Blood Urea Nitrogen 25 mg/dL (8-26) Creatinine 1.6 mg/dL (0.7-1.3) Estimated GFR (Cockcroft-Gault) 50.2 BUN/Creatinine Ratio 16 (6-20) Glucose Level 90 mg/dL (70-99) Calcium Level 8.8 mg/dL (8.5-10.1) Total Bilirubin 0.7 mg/dL (0.2-1.0) Aspartate Amino Transf (AST/SGOT) 20 U/L (15-37) Alanine Aminotransferase (ALT/SGPT) 18 U/L (16-63) Alkaline Phosphatase 99 U/L (46-116) Total Protein 7.1 g/dL (6.4-8.2) Albumin 2.9 g/dL (3.4-5.0) Albumin/Globulin Ratio 0.7 (1.0-1.7) Medications Active Scripts Medications Dose Route/Sig Max Daily Dose Days Date Category Proventil Hfa (Albuterol Sulfate) 6.7 Gm Hfa.aer.ad 1 Puff INH PRN Q6HRS PRN 03/10/19 Rx Prednisone 50 Mg Tablet 1 Tab PO DAILY 03/10/19 Rx Prednisone (Prednisone) 10 Mg Tablet 10 Mg PO DAILY 2 01/15/19 Rx Prednisone 20 Mg Tablet 1 Tab PO BID 2 01/15/19 Rx Prednisone 50 Mg Tablet 50 Mg PO DAILY 3 01/15/19 Rx Hydrocodone-Apap 5-325 (Hydrocodone Bit/Acetaminophen) 1 Tab Tablet 1 Tab PO PRN Q4HRS PRN 5 01/15/19 Rx Doxycycline Hyclate 100 Mg Tablet 100 Mg PO BID 2 01/15/19 Rx Haloperidol 2 Mg Tablet 1 Tab PO BID 10/22/18 Rx Olanzapine 2.5 Mg Tablet 2.5 Mg PO DAILY MDD 1 30 10/22/18 Rx Amlodipine Besylate 10 Mg Tablet 10 Mg PO DAILY MDD 1 30 10/22/18 Rx Hydralazine Hcl 25 Mg Tablet 25 Mg PO TID MDD 1 30 10/22/18 Rx Nystatin 15 Gm Powder 1 Alberto TP BID 10/17/18 Reported Milk Of Magnesia (Magnesium Hydroxide) 400 Mg/5 Ml Oral.susp 400 Mg PO PRN DAILY PRN 10/17/18 Reported Mag-Oxide (Magnesium Oxide) 400 Mg Tablet 1 Tab PO BID 10/17/18 Reported Losartan Potassium 100 Mg Tablet 100 Mg PO DAILY 10/17/18 Reported Lasix (Furosemide) 20 Mg Tablet 1 Tab PO DAILY 10/17/18 Reported Potassium Chloride 20 Meq Tablet.er 20 Meq PO DAILY 10/15/18 Reported Colcrys (Colchicine) 0.6 Mg Tablet 0.6 Mg PO DAILY 30 01/03/18 Rx Aspirin Ec (Aspirin) 81 Mg Tablet.dr 81 Mg PO DAILYWBKFT 30 01/03/18 Rx Duoneb 0.5-3(2.5) Mg/3 Ml (Albuterol/Ipratropium) 3 Ml Ampul.neb 3 Ml NEB RTQID 30 01/03/18 Rx Metoprolol Tartrate 50 Mg Tablet 2 Tab PO BID 30 01/03/18 Rx Miralax (Polyethylene Glycol 3350) 17 Gm Powd.pack 1 Packet PO PRN DAILY PRN 03/09/16 Reported Tylenol (Acetaminophen) 325 Mg Tablet 1 Tab PO PRN Q6HRS PRN 03/09/16 Reported Famotidine 20 Mg Tablet 20 Mg PO HS 03/05/16 Reported Impression . 1. Progressive dyspnea, multifactorial---resolved 2. Acute hypoxic respiratory failure---resolved 3. acute exacerbation of chronic obstructive pulmonary disease---resolved 4. pneumonia----improved 5. Dementia---stable ongoing 6. History of tobacco dependence, in remission. 7. Chronic heart failure. 8. Hypertension. 9. Suspect acute on chronic diastolic heart failure. 10. Chronic renal insufficiency. 11. PVD with stasis wounds to BLE 12. Hypertension CT chest 07/15/19 IMPRESSION: 1. There is some mild irregular linear opacities at both lung bases that are similar to prior study. This could be related to scarring and/or stable mild interstitial fibrosis. 2. Coronary artery calcifications and mild ectasia of the ascending thoracic aorta. 3. Mild diffuse bronchial wall thickening, nonspecific. Consider acute or chronic bronchial inflammatory process. 4. Pleural-parenchymal changes at the left lung base, likely scar or atelectasis. 5. Indeterminate low-density focus at the upper pole left kidney is stable from the 2011 exam and probably benign. Plan . 1. Respiratory status is clinically stable--remains on room air w/o respiratory symptoms 2. reviewed CT, appears to be old scarring less likely new infection 3. cont. steroids with taper back to baseline steroids at 10mg daily 4. cont. leavquin currently day 3 of tx. 5. supplemental oxygen PRN and bronchodilators 6. encourage ambulation 7. Vascular sx. seen pt, recommends ongoing wound care of BLE 8. cont. Social work for Discharge planning 9. Hypertension despite multiple agents--needs good control 2/2 suspected elevated PA pressures and heart failure . ROSE GIRALDO MD Jul 07, 2019 11:26
[2019-07-07 14:56] VITALS: BP_SYST 145; BP_SYST 159; BP_DIAS 82; BP_DIAS 94
[2019-07-07 19:00] VITALS: BP 128/73
[2019-07-07] MEDS: FAMOTIDINE 20 MG TABLET. PO SCH (20:56)
[2019-07-07 23:00] VITALS: BP 151/86
[2019-07-08 03:00] VITALS: BP 136/79
[2019-07-08 07:00] VITALS: BP 149/95
[2019-07-08 07:37] LABS: BASO % 0 % (0-3); EOS # 0.2 x10^3/uL (0.0-0.7); EOS % 3 % (0-3); HEMATOCRIT 52.8 % (39.0-53.0); HEMOGLOBIN 17.6 g/dL (13.0-17.5); LYMPH # 1.1 x10^3/uL (1.0-4.8); LYMPH % 14 % (24-48); MEAN CORPUSCULAR HEMOGLOBIN 32 pg (25-35); MEAN CORPUSCULAR HGB CONC 33 g/dL (31-37); MEAN CORPUSCULAR VOLUME 96 fL (79-100); MONO # 1.1 x10^3/uL (0.0-1.1); MONO % 14 % (0-9); NEUT # 5.5 x10^3/uL (1.8-7.7); NEUT % 69 % (31-73); PLATELET COUNT 103 x10^3/uL (140-400); RED BLOOD COUNT 5.51 x10^6/uL (4.30-5.70); RED CELL DISTRIBUTION WIDTH 16.4 % (11.5-14.5)
[2019-07-08] MEDS: IPRATRPIUM/ALBUTEROL 0.5/2.5MG 3 ML NEBU. NEB SCH ×3 (07:41→16:10)
[2019-07-08 08:10] LABS: CALCIUM 8.9 mg/dL (8.5-10.1); CREATININE 1.3 mg/dL (0.7-1.3); GFR 63.8; POTASSIUM 3.8 mmol/L (3.5-5.1)
--- NOTE | 2019-07-08 08:18 | PDOC ---
PROGRESS NOTES Chief Complaint Chief Complaint acute exacerbation of COPD, steroids, nebs, no abx, no sputum or fever, pulm consult acute hypoxic resp failure Hepatic cirrhosis or other fibrotic process. mild tricuspid regurgitation. RVSP 48 mm Hg. c/w moderate pulm htn Diffuse increased interstitial opacity due to chronic interstitial change or trace interstitial infiltrate. The superimposed on suspected bilateral basilar atelectasis. by cxr mild malnutrition in obesity, BMI 35 dementia, w. history of behavioral d/o CAD, htn, lipids CKD 3 Small complex renal cysts BPH, Aspiration risk History of Present Illness History of Present Illness up in chair - fully awake A transfer from tele floor HE has no complaints, less wheezy Waiting for SNU CT: 1. There is some mild irregular linear opacities at both lung bases that are similar to prior study. This could be related to scarring and/or stable mild interstitial fibrosis. 2. Coronary artery calcifications and mild ectasia of the ascending thoracic aorta. 3. Mild diffuse bronchial wall thickening, nonspecific. Consider acute or chronic bronchial inflammatory process. 4. Pleural-parenchymal changes at the left lung base, likely scar or atelectasis. 5. Indeterminate low-density focus at the upper pole left kidney is stable from the 2011 exam and probably benign. I provided him a copy of the above Pulmo on case,added some zosyn 07/05 NEeds SNU and pt is agreeable - came from home SW on case PLAN: IV vanc zosyn SNU Supportive mneds I reconciled home meds Robitussin etc FUll code SNU monday ' LAbs, follow cx Vitals Vitals Vital Signs Date Time Temp Pulse Resp B/P (MAP) Pulse Ox O2 Delivery O2 Flow Rate FiO2 07/08/19 07:42 99 Room Air 07/08/19 07:00 97.4 72 17 149/95 (113) 97.4 Physical Exam General: Alert, Cooperative, No acute distress, Other (disoriented 0/3,. consistent with dementia, does not know year or president) Heart: Regular rate, No murmurs Lungs: Other (dimin in bases ) Abdomen: Normal bowel sounds, Soft Extremities: No cyanosis, Other (dorsal pedal pulses absent) Skin: No rashes, No significant lesion Labs LABS Laboratory Tests Test 07/08/19 06:50 White Blood Count 8.0 x10^3/uL (4.0-11.0) Red Blood Count 5.51 x10^6/uL (4.30-5.70) Hemoglobin 17.6 g/dL (13.0-17.5) Hematocrit 52.8 % (39.0-53.0) Mean Corpuscular Volume 96 fL (79-100) Mean Corpuscular Hemoglobin 32 pg (25-35) Mean Corpuscular Hemoglobin Concent 33 g/dL (31-37) Red Cell Distribution Width 16.4 % (11.5-14.5) Platelet Count 103 x10^3/uL (140-400) Neutrophils (%) (Auto) 69 % (31-73) Lymphocytes (%) (Auto) 14 % (24-48) Monocytes (%) (Auto) 14 % (0-9) Eosinophils (%) (Auto) 3 % (0-3) Basophils (%) (Auto) 0 % (0-3) Neutrophils # (Auto) 5.5 x10^3/uL (1.8-7.7) Lymphocytes # (Auto) 1.1 x10^3/uL (1.0-4.8) Monocytes # (Auto) 1.1 x10^3/uL (0.0-1.1) Eosinophils # (Auto) 0.2 x10^3/uL (0.0-0.7) Basophils # (Auto) 0.0 x10^3/uL (0.0-0.2) Sodium Level 144 mmol/L (136-145) Potassium Level 3.8 mmol/L (3.5-5.1) Chloride Level 104 mmol/L (98-107) Carbon Dioxide Level 27 mmol/L (21-32) Anion Gap 13 (6-14) Blood Urea Nitrogen 29 mg/dL (8-26) Creatinine 1.3 mg/dL (0.7-1.3) Estimated GFR (Cockcroft-Gault) 63.8 Glucose Level 73 mg/dL (70-99) Calcium Level 8.9 mg/dL (8.5-10.1) Assessment and Plan Assessmemt and Plan Problems Medical Problems: (1) Acute renal failure Status: Acute (2) COPD (chronic obstructive pulmonary disease) Status: Acute (3) Elevated lactic acid level Status: Acute Comment Review of Relevant I have reviewed the following items patrick (where applicable) has been applied. Labs Laboratory Tests Test 07/08/19 06:50 White Blood Count 8.0 x10^3/uL (4.0-11.0) Red Blood Count 5.51 x10^6/uL (4.30-5.70) Hemoglobin 17.6 g/dL (13.0-17.5) Hematocrit 52.8 % (39.0-53.0) Mean Corpuscular Volume 96 fL (79-100) Mean Corpuscular Hemoglobin 32 pg (25-35) Mean Corpuscular Hemoglobin Concent 33 g/dL (31-37) Red Cell Distribution Width 16.4 % (11.5-14.5) Platelet Count 103 x10^3/uL (140-400) Neutrophils (%) (Auto) 69 % (31-73) Lymphocytes (%) (Auto) 14 % (24-48) Monocytes (%) (Auto) 14 % (0-9) Eosinophils (%) (Auto) 3 % (0-3) Basophils (%) (Auto) 0 % (0-3) Neutrophils # (Auto) 5.5 x10^3/uL (1.8-7.7) Lymphocytes # (Auto) 1.1 x10^3/uL (1.0-4.8) Monocytes # (Auto) 1.1 x10^3/uL (0.0-1.1) Eosinophils # (Auto) 0.2 x10^3/uL (0.0-0.7) Basophils # (Auto) 0.0 x10^3/uL (0.0-0.2) Sodium Level 144 mmol/L (136-145) Potassium Level 3.8 mmol/L (3.5-5.1) Chloride Level 104 mmol/L (98-107) Carbon Dioxide Level 27 mmol/L (21-32) Anion Gap 13 (6-14) Blood Urea Nitrogen 29 mg/dL (8-26) Creatinine 1.3 mg/dL (0.7-1.3) Estimated GFR (Cockcroft-Gault) 63.8 Glucose Level 73 mg/dL (70-99) Calcium Level 8.9 mg/dL (8.5-10.1) Laboratory Tests Test 07/08/19 06:50 White Blood Count 8.0 x10^3/uL (4.0-11.0) Red Blood Count 5.51 x10^6/uL (4.30-5.70) Hemoglobin 17.6 g/dL (13.0-17.5) Hematocrit 52.8 % (39.0-53.0) Mean Corpuscular Volume 96 fL (79-100) Mean Corpuscular Hemoglobin 32 pg (25-35) Mean Corpuscular Hemoglobin Concent 33 g/dL (31-37) Red Cell Distribution Width 16.4 % (11.5-14.5) Platelet Count 103 x10^3/uL (140-400) Neutrophils (%) (Auto) 69 % (31-73) Lymphocytes (%) (Auto) 14 % (24-48) Monocytes (%) (Auto) 14 % (0-9) Eosinophils (%) (Auto) 3 % (0-3) Basophils (%) (Auto) 0 % (0-3) Neutrophils # (Auto) 5.5 x10^3/uL (1.8-7.7) Lymphocytes # (Auto) 1.1 x10^3/uL (1.0-4.8) Monocytes # (Auto) 1.1 x10^3/uL (0.0-1.1) Eosinophils # (Auto) 0.2 x10^3/uL (0.0-0.7) Basophils # (Auto) 0.0 x10^3/uL (0.0-0.2) Sodium Level 144 mmol/L (136-145) Potassium Level 3.8 mmol/L (3.5-5.1) Chloride Level 104 mmol/L (98-107) Carbon Dioxide Level 27 mmol/L (21-32) Anion Gap 13 (6-14) Blood Urea Nitrogen 29 mg/dL (8-26) Creatinine 1.3 mg/dL (0.7-1.3) Estimated GFR (Cockcroft-Gault) 63.8 Glucose Level 73 mg/dL (70-99) Calcium Level 8.9 mg/dL (8.5-10.1) Microbiology 07/03/19 Blood Culture - Preliminary, Resulted NO GROWTH AFTER 4 DAYS Medications Current Medications Albuterol/ Ipratropium (Duoneb) 3 ml 1X ONCE NEB Last administered on 07/03/19at 16:35; Start 07/03/19 at 16:30; Stop 07/03/19 at 16:31; Status DC Methylprednisolone Sodium Succinate (SOLU-Medrol 125MG VIAL) 125 mg 1X ONCE IV Last administered on 07/03/19at 18:11; Start 07/03/19 at 16:30; Stop 07/03/19 at 16:31; Status DC Sodium Chloride 1,000 ml @ 1,000 mls/hr 1X ONCE IV ; Start 07/03/19 at 20:00; Stop 07/03/19 at 20:59; Status DC Sodium Chloride 1,000 ml @ 1,000 mls/hr 1X ONCE IV ; Start 07/03/19 at 20:00; Stop 07/03/19 at 20:59; Status DC Ondansetron HCl (Zofran) 4 mg PRN Q8HRS PRN IV NAUSEA/VOMITING; Start 07/03/19 at 20:00; Stop 07/04/19 at 19:59; Status DC Morphine Sulfate (Morphine Sulfate) 4 mg PRN Q2HR PRN IV PAIN; Start 07/03/19 at 20:00; Stop 07/04/19 at 19:59; Status DC Acetaminophen (Tylenol) 650 mg PRN Q4HRS PRN PO FEVER Last administered on 07/04/19at 13:25; Start 07/03/19 at 20:00; Stop 07/04/19 at 19:59; Status DC Albuterol/ Ipratropium (Duoneb) 3 ml RTQID NEB Last administered on 07/04/19at 19:59; Start 07/03/19 at 20:00; Stop 07/04/19 at 19:59; Status DC Levofloxacin/ Dextrose 100 ml @ 100 mls/hr 1X ONCE IV Last administered on 07/03/19at 22:44; Start 07/03/19 at 20:00; Stop 07/03/19 at 20:59; Status DC Vancomycin HCl (Vanco Per Pharmacy) 1 each PRN DAILY PRN MC SEE COMMENTS Last administered on 07/06/19at 00:44; Start 07/03/19 at 20:00; Stop 07/06/19 at 11:22; Status DC Vancomycin HCl 2 gm/Sodium Chloride 500 ml @ 250 mls/hr 1X ONCE IV Last administered on 07/04/19at 00:11; Start 07/03/19 at 20:30; Stop 07/03/19 at 22:29; Status DC Prednisone (Prednisone) 40 mg DAILY PO Last administered on 07/07/19at 08:19; Start 07/04/19 at 09:00; Stop 07/07/19 at 11:24; Status DC Vancomycin HCl 1.5 gm/Sodium Chloride 500 ml @ 250 mls/hr Q24H IV Last administered on 07/06/19at 00:03; Start 07/05/19 at 00:00; Stop 07/06/19 at 11:20; Status DC Vancomycin HCl (Vancomycin Trough Level) 1 each 1X ONCE MC Last administered on 07/06/19at 10:00; Start 07/05/19 at 23:30; Stop 07/05/19 at 23:31; Status DC Lactobacillus Rhamnosus (Culturelle) 1 cap BID PO Last administered on 07/07/19at 20:56; Start 07/04/19 at 21:00 Multivitamins (Thera M Plus) 1 tab DAILY PO Last administered on 07/07/19at 10:49; Start 07/04/19 at 12:00 Levofloxacin/ Dextrose 50 ml @ 50 mls/hr Q24H IV Last administered on 07/06/19at 15:51; Start 07/04/19 at 14:00; Stop 07/07/19 at 14:54; Status DC Albuterol/ Ipratropium (Duoneb) 3 ml RTQID NEB Last administered on 07/08/19at 07:41; Start 07/05/19 at 08:00 Acetaminophen (Tylenol) 500 mg PRN Q6HRS PRN PO MILD PAIN / TEMP Last a dministered on 07/06/19at 20:55; Start 07/05/19 at 11:00 Ondansetron HCl (Zofran) 4 mg PRN Q6HRS PRN IVP NAUSEA/VOMITING; Start 07/06/19 at 08:15 Guaifenesin (Robitussin Dm) 10 ml PRN Q6HRS PRN PO COUGH; Start 07/06/19 at 08:15 Calcium Carbonate/ Glycine (Tums) 500 mg PRN AFTMEALHC PRN PO INDIGESTION; Start 07/06/19 at 08:15 Temazepam (Restoril) 7.5 mg PRN QHS PRN PO INSOMNIA; Start 07/06/19 at 08:15 Magnesium Hydroxide (Milk Of Magnesia) 2,400 mg PRN DAILY PRN PO CONSTIPATION 2ND CHOICE; Start 07/06/19 at 08:15 Clonidine HCl (Catapres) 0.1 mg PRN Q1HR PRN PO HYPERTENSION; Start 07/06/19 at 08:15 Amlodipine Besylate (Norvasc) 10 mg DAILY PO Last administered on 07/07/19 08:20; Start 07/06/19 at 09:00 Aspirin (Ecotrin) 81 mg DAILYWBKFT PO Last administered on 07/07/19 10:49; Start 07/06/19 at 09:00 Famotidine (Pepcid) 20 mg HS PO Last administered on 07/07/19 20:56; Start 07/06/19 at 21:00 Furosemide (Lasix) 20 mg DAILY PO Last administered on 07/07/19 08:20; Start 07/06/19 at 09:00 Haloperidol (Haldol) 2 mg BID PO Last administered on 07/07/19 20:56; Start 07/06/19 at 09:00 Hydralazine HCl (Apresoline) 25 mg TID PO Last administered on 07/07/19 20:57; Start 07/06/19 at 09:00 Acetaminophen/ Hydrocodone Bitart (Lortab 5/325) 1 tab PRN Q4HRS PRN PO MODERATE-SEVERE PAIN; Start 07/06/19 at 08:15 Metoprolol Tartrate (Lopressor) 100 mg BID PO Last administered on 07/07/19 20:57; Start 07/06/19 at 09:00 Nystatin (Nystop) 1 alberto BID TP Last administered on 07/07/19 08:21; Start 07/06/19 at 09:00 Olanzapine (ZyPREXA) 2.5 mg DAILY PO Last administered on 07/07/19 08:19; Start 07/06/19 at 09:00 Polyethylene Glycol (miraLAX PACKET) 17 gm PRN DAILY PRN PO CONSTIPATION 1ST CHOICE; Start 07/06/19 at 08:15 Albuterol Sulfate (Ventolin Neb Soln) 2.5 mg PRN Q6HRS PRN NEB SHORTNESS OF BREATH; Start 07/06/19 at 08:30 Losartan Potassium (Cozaar) 100 mg DAILY PO Last administered on 07/07/19at 10:49; Start 07/06/19 at 09:00 Potassium Chloride (Klor-Con) 20 meq DAILYWBKFT PO Last administered on at 10:48; Start 07/06/19 at 09:00 Prednisone (Prednisone) 30 mg DAILY PO ; Start 07/08/19 at 09:00; Stop 07/09/19 at 09:01 Prednisone (Prednisone) 20 mg DAILY PO ; Start 07/10/19 at 09:00; Stop 07/11/19 at 09:01 Prednisone (Prednisone) 10 mg DAILY PO ; Start 07/12/19 at 09:00; Stop 07/13/19 at 09:01 Levofloxacin (Levaquin) 500 mg DAILY06 PO Last administered on 07/08/19at 05:40; Start 07/08/19 at 06:00 Levofloxacin (Levaquin) 500 mg 1X ONCE PO Last administered on 07/07/19at 15:30; Start 07/07/19 at 15:00; Stop 07/07/19 at 15:01; Status DC Active Scripts Active Proventil Hfa (Albuterol Sulfate) 6.7 Gm Hfa.aer.ad 1 Puff INH PRN Q6HRS PRN Prednisone 50 Mg Tablet 1 Tab PO DAILY Prednisone (Prednisone) 10 Mg Tablet 10 Mg PO DAILY 2 Days Prednisone 20 Mg Tablet 1 Tab PO BID 2 Days Prednisone 50 Mg Tablet 50 Mg PO DAILY 3 Days Hydrocodone-Apap 5-325 (Hydrocodone Bit/Acetaminophen) 1 Tab Tablet 1 Tab PO PRN Q4HRS PRN 5 Days Doxycycline Hyclate 100 Mg Tablet 100 Mg PO BID 2 Days Haloperidol 2 Mg Tablet 1 Tab PO BID Olanzapine 2.5 Mg Tablet 2.5 Mg PO DAILY MDD 1 30 Days Amlodipine Besylate 10 Mg Tablet 10 Mg PO DAILY MDD 1 30 Days Hydralazine Hcl 25 Mg Tablet 25 Mg PO TID MDD 1 30 Days Colcrys (Colchicine) 0.6 Mg Tablet 0.6 Mg PO DAILY 30 Days Aspirin Ec (Aspirin) 81 Mg Tablet.dr 81 Mg PO DAILYWBKFT 30 Days Duoneb 0.5-3(2.5) Mg/3 Ml (Albuterol/Ipratropium) 3 Ml Ampul.neb 3 Ml NEB RTQID 30 Days Metoprolol Tartrate 50 Mg Tablet 2 Tab PO BID 30 Days Reported Nystatin 15 Gm Powder 1 Alberto TP BID Milk Of Magnesia (Magnesium Hydroxide) 400 Mg/5 Ml Oral.susp 400 Mg PO PRN DAILY PRN Mag-Oxide (Magnesium Oxide) 400 Mg Tablet 1 Tab PO BID Losartan Potassium 100 Mg Tablet 100 Mg PO DAILY Lasix (Furosemide) 20 Mg Tablet 1 Tab PO DAILY Potassium Chloride 20 Meq Tablet.er 20 Meq PO DAILY Miralax (Polyethylene Glycol 3350) 17 Gm Powd.pack 1 Packet PO PRN DAILY PRN Tylenol (Acetaminophen) 325 Mg Tablet 1 Tab PO PRN Q6HRS PRN Famotidine 20 Mg Tablet 20 Mg PO HS Vitals/I & O Vital Sign - Last 24 Hours 07/07/19 07/07/19 07/07/19 07/07/19 08:19 08:20 08:20 10:49 Pulse 70 70 70 74 B/P (MAP) 150/99 150/99 150/99 151/94 07/07/19 07/07/19 07/07/19 07/07/19 11:00 11:58 14:56 15:30 Temp 97.7 97.7 97.7 97.7 Pulse 74 74 74 Resp 19 19 B/P (MAP) 159/94 (115) 145/82 (103) 145/82 Pulse Ox 97 97 97 O2 Delivery Room Air Room Air Room Air 07/07/19 07/07/19 07/07/19 07/07/19 15:48 19:00 19:47 20:12 Temp 98.2 98.2 Pulse 70 Resp 18 B/P (MAP) 128/73 (91) Pulse Ox 96 98 O2 Delivery Room Air Room Air Room Air Room Air 07/07/19 07/07/19 07/07/19 07/08/19 20:57 20:57 23:00 03:00 Temp 97.4 97.6 97.4 97.6 Pulse 70 70 69 74 Resp 18 16 B/P (MAP) 128/73 128/73 151/86 (107) 136/79 (98) Pulse Ox 97 98 O2 Delivery Room Air Room Air 07/08/19 07/08/19 07:00 07:42 Temp 97.4 97.4 Pulse 72 Resp 17 B/P (MAP) 149/95 (113) Pulse Ox 97 99 O2 Delivery Room Air Room Air Intake and Output 07/07/19 07/07/19 07/08/19 15:00 23:00 07:00 Intake Total 600 ml 300 ml Output Total 450 ml Balance 600 ml -150 ml JEWEL KNOWLES MD Jul 08, 2019 08:18
[2019-07-08] MEDS ORDERED: predniSONE 10 MG TABLET PO SCH (09:00)
--- NOTE | 2019-07-08 09:12 | PDOC ---
PULMONARY PROGRESS NOTES Subjective PT WANTS TO GO HOME Vitals Vital Signs Date Time Temp Pulse Resp B/P (MAP) Pulse Ox O2 Delivery O2 Flow Rate FiO2 07/08/19 07:42 99 Room Air 07/08/19 07:00 97.4 72 17 149/95 (113) 97.4 ROS: No Nausea, No Chest Pain, No Abdominal Pain, No Increase Cough General: Alert, No acute distress, Confused Lungs: Other (dimin in bases ) Cardiovascular: S1, S2 Abdomen: Soft Neuro Exam: Alert Extremities: No Edema Skin: Warm, Dry, Other (BLE open wounds ) Labs Laboratory Tests Test 07/08/19 06:50 White Blood Count 8.0 x10^3/uL (4.0-11.0) Red Blood Count 5.51 x10^6/uL (4.30-5.70) Hemoglobin 17.6 g/dL (13.0-17.5) Hematocrit 52.8 % (39.0-53.0) Mean Corpuscular Volume 96 fL (79-100) Mean Corpuscular Hemoglobin 32 pg (25-35) Mean Corpuscular Hemoglobin Concent 33 g/dL (31-37) Red Cell Distribution Width 16.4 % (11.5-14.5) Platelet Count 103 x10^3/uL (140-400) Neutrophils (%) (Auto) 69 % (31-73) Lymphocytes (%) (Auto) 14 % (24-48) Monocytes (%) (Auto) 14 % (0-9) Eosinophils (%) (Auto) 3 % (0-3) Basophils (%) (Auto) 0 % (0-3) Neutrophils # (Auto) 5.5 x10^3/uL (1.8-7.7) Lymphocytes # (Auto) 1.1 x10^3/uL (1.0-4.8) Monocytes # (Auto) 1.1 x10^3/uL (0.0-1.1) Eosinophils # (Auto) 0.2 x10^3/uL (0.0-0.7) Basophils # (Auto) 0.0 x10^3/uL (0.0-0.2) Sodium Level 144 mmol/L (136-145) Potassium Level 3.8 mmol/L (3.5-5.1) Chloride Level 104 mmol/L (98-107) Carbon Dioxide Level 27 mmol/L (21-32) Anion Gap 13 (6-14) Blood Urea Nitrogen 29 mg/dL (8-26) Creatinine 1.3 mg/dL (0.7-1.3) Estimated GFR (Cockcroft-Gault) 63.8 Glucose Level 73 mg/dL (70-99) Calcium Level 8.9 mg/dL (8.5-10.1) Laboratory Tests Test 07/08/19 06:50 White Blood Count 8.0 x10^3/uL (4.0-11.0) Red Blood Count 5.51 x10^6/uL (4.30-5.70) Hemoglobin 17.6 g/dL (13.0-17.5) Hematocrit 52.8 % (39.0-53.0) Mean Corpuscular Volume 96 fL (79-100) Mean Corpuscular Hemoglobin 32 pg (25-35) Mean Corpuscular Hemoglobin Concent 33 g/dL (31-37) Red Cell Distribution Width 16.4 % (11.5-14.5) Platelet Count 103 x10^3/uL (140-400) Neutrophils (%) (Auto) 69 % (31-73) Lymphocytes (%) (Auto) 14 % (24-48) Monocytes (%) (Auto) 14 % (0-9) Eosinophils (%) (Auto) 3 % (0-3) Basophils (%) (Auto) 0 % (0-3) Neutrophils # (Auto) 5.5 x10^3/uL (1.8-7.7) Lymphocytes # (Auto) 1.1 x10^3/uL (1.0-4.8) Monocytes # (Auto) 1.1 x10^3/uL (0.0-1.1) Eosinophils # (Auto) 0.2 x10^3/uL (0.0-0.7) Basophils # (Auto) 0.0 x10^3/uL (0.0-0.2) Sodium Level 144 mmol/L (136-145) Potassium Level 3.8 mmol/L (3.5-5.1) Chloride Level 104 mmol/L (98-107) Carbon Dioxide Level 27 mmol/L (21-32) Anion Gap 13 (6-14) Blood Urea Nitrogen 29 mg/dL (8-26) Creatinine 1.3 mg/dL (0.7-1.3) Estimated GFR (Cockcroft-Gault) 63.8 Glucose Level 73 mg/dL (70-99) Calcium Level 8.9 mg/dL (8.5-10.1) Medications Active Scripts Medications Dose Route/Sig Max Daily Dose Days Date Category Proventil Hfa (Albuterol Sulfate) 6.7 Gm Hfa.aer.ad 1 Puff INH PRN Q6HRS PRN 03/10/19 Rx Prednisone 50 Mg Tablet 1 Tab PO DAILY 03/10/19 Rx Prednisone (Prednisone) 10 Mg Tablet 10 Mg PO DAILY 2 01/15/19 Rx Prednisone 20 Mg Tablet 1 Tab PO BID 2 01/15/19 Rx Prednisone 50 Mg Tablet 50 Mg PO DAILY 3 01/15/19 Rx Hydrocodone-Apap 5-325 (Hydrocodone Bit/Acetaminophen) 1 Tab Tablet 1 Tab PO PRN Q4HRS PRN 5 01/15/19 Rx Doxycycline Hyclate 100 Mg Tablet 100 Mg PO BID 2 01/15/19 Rx Haloperidol 2 Mg Tablet 1 Tab PO BID 10/22/18 Rx Olanzapine 2.5 Mg Tablet 2.5 Mg PO DAILY MDD 1 30 10/22/18 Rx Amlodipine Besylate 10 Mg Tablet 10 Mg PO DAILY MDD 1 30 10/22/18 Rx Hydralazine Hcl 25 Mg Tablet 25 Mg PO TID MDD 1 30 10/22/18 Rx Nystatin 15 Gm Powder 1 Alberto TP BID 10/17/18 Reported Milk Of Magnesia (Magnesium Hydroxide) 400 Mg/5 Ml Oral.susp 400 Mg PO PRN DAILY PRN 10/17/18 Reported Mag-Oxide (Magnesium Oxide) 400 Mg Tablet 1 Tab PO BID 10/17/18 Reported Losartan Potassium 100 Mg Tablet 100 Mg PO DAILY 10/17/18 Reported Lasix (Furosemide) 20 Mg Tablet 1 Tab PO DAILY 10/17/18 Reported Potassium Chloride 20 Meq Tablet.er 20 Meq PO DAILY 10/15/18 Reported Colcrys (Colchicine) 0.6 Mg Tablet 0.6 Mg PO DAILY 30 01/03/18 Rx Aspirin Ec (Aspirin) 81 Mg Tablet.dr 81 Mg PO DAILYWBKFT 30 01/03/18 Rx Duoneb 0.5-3(2.5) Mg/3 Ml (Albuterol/Ipratropium) 3 Ml Ampul.neb 3 Ml NEB RTQID 30 01/03/18 Rx Metoprolol Tartrate 50 Mg Tablet 2 Tab PO BID 30 01/03/18 Rx Miralax (Polyethylene Glycol 3350) 17 Gm Powd.pack 1 Packet PO PRN DAILY PRN 03/09/16 Reported Tylenol (Acetaminophen) 325 Mg Tablet 1 Tab PO PRN Q6HRS PRN 03/09/16 Reported Famotidine 20 Mg Tablet 20 Mg PO HS 03/05/16 Reported Impression . 1. Progressive dyspnea, multifactorial---resolved 2. Acute hypoxic respiratory failure---resolved 3. acute exacerbation of chronic obstructive pulmonary disease---resolved 4. pneumonia----improved 5. Dementia---stable ongoing 6. History of tobacco dependence, in remission. 7. Chronic heart failure. 8. Hypertension. 9. Suspect acute on chronic diastolic heart failure. 10. Chronic renal insufficiency. 11. PVD with stasis wounds to BLE 12. Hypertension CT chest 07/15/19 IMPRESSION: 1. There is some mild irregular linear opacities at both lung bases that are similar to prior study. This could be related to scarring and/or stable mild interstitial fibrosis. 2. Coronary artery calcifications and mild ectasia of the ascending thoracic aorta. 3. Mild diffuse bronchial wall thickening, nonspecific. Consider acute or chronic bronchial inflammatory process. 4. Pleural-parenchymal changes at the left lung base, likely scar or atelectasis. 5. Indeterminate low-density focus at the upper pole left kidney is stable from the 2011 exam and probably benign. Plan . OK TO D/C OFF . ROSE GIRALDO MD Jul 08, 2019 09:12
[2019-07-08] MEDS: LACTOBACILLUS RHAMNOSUS GG 1 CAPSULE. PO SCH (09:46)
[2019-07-08] MEDS: HALOPERIDOL 2 MG TABLET. PO SCH (09:46)
[2019-07-08] MEDS: ASPIRIN ENTERIC COATED 81 MG TABLET.DR. PO SCH (09:47)
[2019-07-08] MEDS: MULTIVITAMIN with MINERAL TABLET. PO SCH (09:47)
[2019-07-08] MEDS: METOPROLOL TART IMMED RELEASE 50 MG TABLET. PO SCH (09:47)
[2019-07-08] MEDS: LOSARTAN POTASSIUM 50 MG TABLET. PO SCH (09:47)
[2019-07-08] MEDS: FUROSEMIDE 20 MG TABLET PO SCH (09:48)
[2019-07-08] MEDS: hydrALAZINE 25 MG TABLET PO SCH (09:48)
[2019-07-08] MEDS: OLANZapine 2.5 MG TABLET PO SCH (09:48)
[2019-07-08] MEDS: POTASSIUM CHLORIDE 20 MEQ TABLET.ER. PO SCH (09:49)
[2019-07-08] MEDS: amLODIPine BESYLATE 10 MG TABLET PO SCH (09:49)
[2019-07-08 11:00] VITALS: BP 131/80
--- NOTE | 2019-07-08 14:14 | NUR ---
SW following. Chart reviewed, discussed with RN. [facility] faxed updates to [facility]. Shellie attempting to skill pt if possible. [facility] will continue to follow.
[2019-07-08 15:00] VITALS: BP 108/63
[2019-07-08] MEDS ORDERED: PRED-220 PO (15:35)
[2019-07-08] MEDS ORDERED: HYDR-2761 PO (15:35)
[2019-07-08] MEDS ORDERED: LEVO500T59 PO (15:35)
--- NOTE | 2019-07-08 15:36 | SNU/HH DC ---
DISCHARGE ORDERS DISCHARGE INFORMATION: DISCHARGE DATE: Jul 08, 2019 FINAL DIAGNOSIS Problems Medical Problems: (1) Acute renal failure Status: Acute (2) COPD (chronic obstructive pulmonary disease) Status: Acute (3) Elevated lactic acid level Status: Acute CONDITION ON DISCHARGE: Stable CODE STATUS: Code Status: Full SENIOR CARE: SNF STAY <30 DAYS: Yes POST DISCHARGE ORDERS: ACTIVITY ORDERS: Activity as tolerated WEIGHT BEARING STATUS: As tolerated DIET AFTER DISCHARGE: Cardiac WOUND/INCISION CARE: Change dressing, Reinforce dressing PRN CHECKS AFTER DISCHARGE: CHECKS AFTER DISCHARGE: Check blood press - daily, Check your Temp as needed FOLLOW-UP: LAB ORDERS FOR FOLLOW-UP: BMP 07/11/19 TREATMENT/EQUIPMENT ORDERS: ADAPTIVE EQUIPMENT NEEDED: None Physical Therapy For: Evalulation/Treatment Occupational Therapy For: Evaluation/Treatment Speech Language Pathology For: Evaluation/Treatment DISCHARGE MEDICATIONS: Home Meds Active Scripts Prednisone (PREDNISONE ) 10 Mg Tablet, 10 MG PO DAILY for COPD for 30 Days, #30 TAB Prov:JEWEL KNOWLES MD 07/08/19 Levofloxacin (LEVAQUIN) 500 Mg Tablet, 500 MG PO DAILY06 for COPD for 3 Days, #3 TAB Prov:JEWLE KNOWLES MD 07/08/19 Hydrocodone Bit/Acetaminophen (HYDROCODONE-APAP 5-325 ) 1 Tab Tablet, 1 TAB PO PRN Q4HRS PRN for PAIN for 5 Days, #15 TAB Prov:JEWEL KNOWLES MD 07/08/19 Albuterol Sulfate (Proventil Hfa) 6.7 Gm Hfa.aer.ad, 1 PUFF INH PRN Q6HRS PRN for SHORTNESS OF BREATH, #1 INHALER Prov:SOL [employer] 03/10/19 Haloperidol (HALOPERIDOL) 2 Mg Tablet, 1 TAB PO BID for agitatiopm, #60 TAB 1 Refill Prov:RAJIV DIAMOND MD 10/22/18 Olanzapine (OLANZAPINE) 2.5 Mg Tablet, 2.5 MG PO DAILY for agitation MDD 1 for 30 Days, #30 TAB Prov:RAJIV DIAMOND MD 10/22/18 Amlodipine Besylate (AMLODIPINE BESYLATE) 10 Mg Tablet, 10 MG PO DAILY for htn MDD 1 for 30 Days, #30 TAB Prov:RAJIV DIAMOND MD 10/22/18 Hydralazine Hcl (HYDRALAZINE HCL) 25 Mg Tablet, 25 MG PO TID for htn MDD 1 for 30 Days, #90 TAB Prov:RAJIV DIAMOND MD 10/22/18 Aspirin (ASPIRIN EC) 81 Mg Tablet.dr, 81 MG PO DAILYWBKFT for 30 Days, #30 TAB.SR Prov:REJI ENG MD 01/03/18 Ipratropium/Albuterol Sulfate (DUONEB 0.5-3(2.5) MG/3 ML) 3 Ml Ampul.neb, 3 ML NEB RTQID for 30 Days, #120 EACH Prov:REJI ENG MD 01/03/18 Metoprolol Tartrate (METOPROLOL TARTRATE) 50 Mg Tablet, 2 TAB PO BID for 30 Days, #120 TAB 5 Refills Prov:REJI ENG MD 01/03/18 Reported Medications Nystatin (NYSTATIN) 15 Gm Powder, 1 UMANG TP BID for excoriation, #1 BOTTLE 10/17/18 Magnesium Hydroxide (MILK OF MAGNESIA) 400 Mg/5 Ml Oral.susp, 400 MG PO PRN DAILY PRN for INDIGESTION, MISC 10/17/18 Magnesium Oxide (MAG-OXIDE) 400 Mg Tablet, 1 TAB PO BID for mag replacement, #60 TAB 5 Refills 10/17/18 Losartan Potassium (LOSARTAN POTASSIUM) 100 Mg Tablet, 100 MG PO DAILY for HYPERTENSION, TAB 10/17/18 Furosemide (LASIX) 20 Mg Tablet, 1 TAB PO DAILY for chf, #90 TAB 1 Refill 10/17/18 Potassium Chloride (POTASSIUM CHLORIDE) 20 Meq Tablet.er, 20 MEQ PO DAILY for lasix therapy, TAB.SR 10/15/18 Polyethylene Glycol 3350 (MIRALAX) 17 Gm Powd.pack, 1 PACKET PO PRN DAILY PRN for CONSTIPATION, #30 PACKET 3 Refills 03/09/16 Acetaminophen (TYLENOL) 325 Mg Tablet, 1 TAB PO PRN Q6HRS PRN for FEVER, #30 TAB 03/09/16 Famotidine (FAMOTIDINE) 20 Mg Tablet, 20 MG PO HS, TAB 03/05/16 Discontinued Scripts Prednisone (PREDNISONE) 50 Mg Tablet, 1 TAB PO DAILY, #5 TAB Prov:SOL CH APRN 03/10/19 Prednisone (PREDNISONE ) 10 Mg Tablet, 10 MG PO DAILY for copd exacerbation for 2 Days, #2 TAB 0 Refills Prov:JUDY ISLAS MD 01/15/19 Prednisone (PREDNISONE) 20 Mg Tablet, 1 TAB PO BID for copd exacerbation for 2 Days, #4 TAB Prov:JUDY ISLAS MD 01/15/19 Prednisone (PREDNISONE) 50 Mg Tablet, 50 MG PO DAILY for copd exacerbation for 3 Days, #3 TAB Prov:JUDY ISLAS MD 01/15/19 Doxycycline Hyclate (DOXYCYCLINE HYCLATE) 100 Mg Tablet, 100 MG PO BID for copd exacerbation for 2 Days, #4 TAB Prov:JUDY ISLAS MD 01/15/19 Colchicine (COLCRYS) 0.6 Mg Tablet, 0.6 MG PO DAILY for 30 Days, #30 TAB Prov:REJI ENG MD 01/03/18 JEWEL KNOWLES MD Jul 08, 2019 15:36
--- NOTE | 2019-07-08 15:43 | PDOC3 ---
Discharge Summary Visit Information Date of Admission: Jul 03, 2019 Date of Discharge: Jul 08, 2019 Admitting Diagnosis: COPD exacerbation Final Diagnosis Problems Medical Problems: (1) Acute renal failure Status: Acute (2) COPD (chronic obstructive pulmonary disease) Status: Acute (3) Elevated lactic acid level Status: Acute Brief Hospital Course Allergies Allergies Coded Allergies Type Severity Reaction Last Updated Verified Penicillins Allergy Intermediate Itching 03/06/16 Yes I S O L A T I O N *CONTACT* Allergy Unknown 10/16/18 Yes Vital Signs Vital Signs Date Time Temp Pulse Resp B/P (MAP) Pulse Ox O2 Delivery O2 Flow Rate FiO2 07/08/19 11:55 99 Room Air 07/08/19 11:00 97.6 90 18 131/80 (97) 97.6 Lab Results Laboratory Tests Test 07/08/19 06:50 White Blood Count 8.0 x10^3/uL (4.0-11.0) Red Blood Count 5.51 x10^6/uL (4.30-5.70) Hemoglobin 17.6 g/dL (13.0-17.5) Hematocrit 52.8 % (39.0-53.0) Mean Corpuscular Volume 96 fL (79-100) Mean Corpuscular Hemoglobin 32 pg (25-35) Mean Corpuscular Hemoglobin Concent 33 g/dL (31-37) Red Cell Distribution Width 16.4 % (11.5-14.5) Platelet Count 103 x10^3/uL (140-400) Neutrophils (%) (Auto) 69 % (31-73) Lymphocytes (%) (Auto) 14 % (24-48) Monocytes (%) (Auto) 14 % (0-9) Eosinophils (%) (Auto) 3 % (0-3) Basophils (%) (Auto) 0 % (0-3) Neutrophils # (Auto) 5.5 x10^3/uL (1.8-7.7) Lymphocytes # (Auto) 1.1 x10^3/uL (1.0-4.8) Monocytes # (Auto) 1.1 x10^3/uL (0.0-1.1) Eosinophils # (Auto) 0.2 x10^3/uL (0.0-0.7) Basophils # (Auto) 0.0 x10^3/uL (0.0-0.2) Sodium Level 144 mmol/L (136-145) Potassium Level 3.8 mmol/L (3.5-5.1) Chloride Level 104 mmol/L (98-107) Carbon Dioxide Level 27 mmol/L (21-32) Anion Gap 13 (6-14) Blood Urea Nitrogen 29 mg/dL (8-26) Creatinine 1.3 mg/dL (0.7-1.3) Estimated GFR (Cockcroft-Gault) 63.8 Glucose Level 73 mg/dL (70-99) Calcium Level 8.9 mg/dL (8.5-10.1) Laboratory Tests Test 07/08/19 06:50 White Blood Count 8.0 x10^3/uL (4.0-11.0) Red Blood Count 5.51 x10^6/uL (4.30-5.70) Hemoglobin 17.6 g/dL (13.0-17.5) Hematocrit 52.8 % (39.0-53.0) Mean Corpuscular Volume 96 fL (79-100) Mean Corpuscular Hemoglobin 32 pg (25-35) Mean Corpuscular Hemoglobin Concent 33 g/dL (31-37) Red Cell Distribution Width 16.4 % (11.5-14.5) Platelet Count 103 x10^3/uL (140-400) Neutrophils (%) (Auto) 69 % (31-73) Lymphocytes (%) (Auto) 14 % (24-48) Monocytes (%) (Auto) 14 % (0-9) Eosinophils (%) (Auto) 3 % (0-3) Basophils (%) (Auto) 0 % (0-3) Neutrophils # (Auto) 5.5 x10^3/uL (1.8-7.7) Lymphocytes # (Auto) 1.1 x10^3/uL (1.0-4.8) Monocytes # (Auto) 1.1 x10^3/uL (0.0-1.1) Eosinophils # (Auto) 0.2 x10^3/uL (0.0-0.7) Basophils # (Auto) 0.0 x10^3/uL (0.0-0.2) Sodium Level 144 mmol/L (136-145) Potassium Level 3.8 mmol/L (3.5-5.1) Chloride Level 104 mmol/L (98-107) Carbon Dioxide Level 27 mmol/L (21-32) Anion Gap 13 (6-14) Blood Urea Nitrogen 29 mg/dL (8-26) Creatinine 1.3 mg/dL (0.7-1.3) Estimated GFR (Cockcroft-Gault) 63.8 Glucose Level 73 mg/dL (70-99) Calcium Level 8.9 mg/dL (8.5-10.1) Brief Hospital Course Mr Demarco is an 84yo w/ PMHx chronic AFib, CHF, COPD, arthritis, gastroesophageal reflux, hypertension, TIA, and dementia who is a shelter resident. He presented with wheezing, shortness of breath had been ongoing for a couple of days. Heapparently resides at a shelter and was brought into the Emergency Department for the above reasons and was initially requiring O2, placed on nebs, steroids, antibiotics, improved. He does admit to having a cough, mostly nonproductive, wheezing and being short of breath. He does not walk much. He does not wear oxygen at home. No metered dose inhalers. He claims that he has never smoked. His x-ray had revealed some chronic changes. He was last admitted back in 01/13 for acute exacerbation of COPD, acute on chronic diastolic heart failure. Seen by pulmonology, given recs, also seen by vascular surgery for superficial ulcers. up in chair - fully awake A transfer from tele floor HE has no complaints, less wheezy Waiting for SNU CT: 1. There is some mild irregular linear opacities at both lung bases that are similar to prior study. This could be related to scarring and/or stable mild interstitial fibrosis. 2. Coronary artery calcifications and mild ectasia of the ascending thoracic aorta. 3. Mild diffuse bronchial wall thickening, nonspecific. Consider acute or chronic bronchial inflammatory process. 4. Pleural-parenchymal changes at the left lung base, likely scar or atelectasis. 5. Indeterminate low-density focus at the upper pole left kidney is stable from the 2011 exam and probably benign. Pulmo on case Problem list - acute exacerbation of COPD, steroids, nebs, no abx, no sputum or fever, pulm consult acute hypoxic resp failure Hepatic cirrhosis or other fibrotic process. mild tricuspid regurgitation. RVSP 48 mm Hg. c/w moderate pulm htn Diffuse increased interstitial opacity due to chronic interstitial change or trace interstitial infiltrate. The superimposed on suspected bilateral basilar atelectasis. by cxr mild malnutrition in obesity, BMI 35 dementia, w. history of behavioral d/o CAD, htn, lipids CKD 3 Small complex renal cysts BPH, Aspiration risk PLAN: Levaquin 3 days Prednisone 10mg daily SNU FUll code SNF Greater than 30 minutes spent on d/c Discharge Information Condition at Discharge: Improved Follow Up: Weeks (1) Disposition/Orders: D/C to Another Facility Scheduled Amlodipine Besylate (Amlodipine Besylate) 10 Mg Tablet, 10 MG PO DAILY for htn MDD 1 for 30 Days, #30 Prescribed by: RAJIV DIAMOND on 10/22/18803 Last Taken: Unknown Dose on Unknown Date & Time Last Action: Continued on 07/06/19811 by RAJIV DIAMOND Aspirin (Aspirin Ec) 81 Mg Tablet.dr, 81 MG PO DAILYWBKFT for 30 Days, #30 Prescribed by: REJI ENG on 01/03/18 1207 Last Taken: Unknown Dose on Unknown Date & Time Last Action: Continued on 07/06/19811 by RAJIV DIAMOND Famotidine (Famotidine) 20 Mg Tablet, 20 MG PO HS, (Reported) Entered as Reported by: JARON HELTON on 03/05/16 0901 Last Action: Continued on 07/06/19811 by RAJIV DIAMOND Furosemide (Lasix) 20 Mg Tablet, 1 TAB PO DAILY for chf, #90 Ref 1 (Reported) Entered as Reported by: RANJIT BILLY on 10/17/18 1352 Last Taken: Unknown Dose on Unknown Date & Time Last Action: Continued on 07/06/19811 by RAJIV DIAMOND Haloperidol (Haloperidol) 2 Mg Tablet, 1 TAB PO BID for agitatiopm, #60 Ref 1 Prescribed by: RAJIV DIAMOND on 10/22/18803 Last Action: Continued on 07/06/19811 by RAJIV DIAMOND Hydralazine Hcl (Hydralazine Hcl) 25 Mg Tablet, 25 MG PO TID for htn MDD 1 for 30 Days, #90 Prescribed by: RAJIV DIAMOND on 10/22/18803 Last Taken: Unknown Dose on Unknown Date & Time Last Action: Continued on 07/06/19811 by RAJIV DIAMOND Ipratropium/Albuterol Sulfate (Duoneb 0.5-3(2.5) Mg/3 Ml) 3 Ml Ampul.neb, 3 ML NEB RTQID for 30 Days, #120 Prescribed by: REJI ENG on 01/03/18 1207 Last Taken: Unknown Dose on Unknown Date & Time Last Action: HELD on 07/06/19811 by RAJIV DIAMOND Levofloxacin (Levaquin) 500 Mg Tablet, 500 MG PO DAILY06 for COPD for 3 Days, #3 Prescribed by: JEWEL KNOWLES MD on 07/08/19 153 Losartan Potassium (Losartan Potassium) 100 Mg Tablet, 100 MG PO DAILY for HYPERTENSION, (Reported) Entered as Reported by: RANJIT BILLY on 10/17/181351 Last Taken: Unknown Dose on Unknown Date & Time Last Action: Converted on 07/06/19811 by RAJIV DIAMOND Magnesium Oxide (Mag-Oxide) 400 Mg Tablet, 1 TAB PO BID for mag replacement, #60 Ref 5 (Reported) Entered as Reported by: RANJIT BILLY on 10/17/181351 Last Action: HELD on 07/06/19811 by RAJIV DIAMOND Metoprolol Tartrate (Metoprolol Tartrate) 50 Mg Tablet, 2 TAB PO BID for 30 Days, #120 Ref 5 Prescribed by: REJI ENG on 01/03/18 1207 Last Taken: Unknown Dose on Unknown Date & Time Last Action: Continued on 07/06/19811 by RAJIV DIAMOND Nystatin (Nystatin) 15 Gm Powder, 1 UMANG TP BID for excoriation, #1 (Reported) Entered as Reported by: RANJIT BILLY on 10/17/181351 Last Action: Continued on 07/06/19811 by RAJIV DIAMOND Olanzapine (Olanzapine) 2.5 Mg Tablet, 2.5 MG PO DAILY for agitation MDD 1 for 30 Days, #30 Prescribed by: RAJIV DIAMOND on 10/22/18 08 Last Action: Continued on 07/06/19811 by RAJIV DIAMOND Potassium Chloride (Potassium Chloride) 20 Meq Tablet.er, 20 MEQ PO DAILY for lasix therapy, (Reported) Entered as Reported by: YING BASSETT RN on 10/15/18 0649 Last Taken: Unknown Dose on Unknown Date & Time Last Action: Converted on 07/06/19811 by RAJIV DIAMOND Prednisone (Prednisone ) 10 Mg Tablet, 10 MG PO DAILY for COPD for 30 Days, #30 Prescribed by: JEWEL KNOWLES MD on 07/08/19 1535 Scheduled PRN Acetaminophen (Tylenol) 325 Mg Tablet, 1 TAB PO PRN Q6HRS PRN for FEVER, #30 (Reported) Entered as Reported by: GIRISH CROWDER on 03/09/16 153 Last Taken: Unknown Dose on Unknown Date & Time Last Action: HELD on 07/06/19811 by RAJIV DIAMOND Albuterol Sulfate (Proventil Hfa) 6.7 Gm Hfa.aer.ad, 1 PUFF INH PRN Q6HRS PRN for SHORTNESS OF BREATH, #1 Prescribed by: Cait Benjamin APRN on 03/10/191916 Last Taken: Unknown Dose on Unknown Date & Time Last Action: Converted on 07/06/19811 by RAJIV DIAMOND Hydrocodone Bit/Acetaminophen (Hydrocodone-Apap 5-325 ) 1 Tab Tablet, 1 TAB PO PRN Q4HRS PRN for PAIN for 5 Days, #15 Prescribed by: JEWEL KNOWLES MD on 07/08/191534 Magnesium Hydroxide (Milk Of Magnesia) 400 Mg/5 Ml Oral.susp, 400 MG PO PRN DAILY PRN for INDIGESTION, (Reported) Entered as Reported by: RANJIT BILLY on 10/17/18 1352 Last Taken: Unknown Dose on Unknown Date & Time Last Action: HELD on 07/06/19811 by RAJIV DIAMOND Polyethylene Glycol 3350 (Miralax) 17 Gm Powd.pack, 1 PACKET PO PRN DAILY PRN for CONSTIPATION, #30 Ref 3 (Reported) Entered as Reported by: GIRISH CROWDER on 03/09/16 1533 Last Action: Continued on 07/06/19811 by RAJIV DIAMOND Discontinued Medications Colchicine (Colcrys) 0.6 Mg Tablet, 0.6 MG PO DAILY for 30 Days, #30 Prescribed by: REJI ENG on 01/03/18 1207 Last Taken: Unknown Dose on Unknown Date & Time Last Action: HELD on 07/06/19811 by RAJIV DIAMOND Doxycycline Hyclate (Doxycycline Hyclate) 100 Mg Tablet, 100 MG PO BID for copd exacerbation for 2 Days, #4 Prescribed by: JUDY ISLAS MD on 01/15/19 1101 Last Action: HELD on 07/06/19811 by RAJIV DIAMOND Prednisone (Prednisone) 50 Mg Tablet, 50 MG PO DAILY for copd exacerbation for 3 Days, #3 Prescribed by: JUDY ISLAS MD on 01/15/19 110 Last Action: HELD on 07/06/19811 by RAJIV DIAMOND Prednisone (Prednisone) 20 Mg Tablet, 1 TAB PO BID for copd exacerbation for 2 Days, #4 Prescribed by: JUDY ISLAS MD on 01/15/191106 Last Taken: Unknown Dose on Unknown Date & Time Last Action: HELD on 07/06/19811 by RAJIV DIAMOND Prednisone (Prednisone ) 10 Mg Tablet, 10 MG PO DAILY for copd exacerbation for 2 Days, #2 Ref 0 Prescribed by: JUDY ISLAS MD on 01/15/191107 Last Action: HELD on 07/06/19811 by RAJIV DIAMOND Prednisone (Prednisone) 50 Mg Tablet, 1 TAB PO DAILY, #5 Prescribed by: Cait Benjamin APRN on 03/10/191916 Last Action: HELD on 07/06/19811 by JEWEL MCCLELLAN MD Jul 08, 2019 15:43
--- NOTE | 2019-07-08 15:55 | NUR ---
SW following. Pt will discharge back to [facility] (possible transition to SNU, once back there). [place] will collect pt between 1830-0716. RN notified.
[2019-07-10] MEDS ORDERED: METO-313 PO (02:37)
[2019-07-10] MEDS ORDERED: predniSONE 20 MG TABLET PO SCH (09:00)
[2019-07-12] MEDS ORDERED: predniSONE 10 MG TABLET PO SCH (09:00)
== END 2019-07-08 16:45 | DRG 177 ==
LOC: ER 15:51 → 6 SOUTH 18:00 → 5 SOUTH 07-05 08:26
PROVIDERS: ADMIT Internal Medicine; ATTEND Internal Medicine
DX: J15.6 Pneumonia due to other Gram-negative bacteria (principal); J96.01 Acute respiratory failure with hypoxia; J44.0 Chronic obstructive pulmonary disease with (acute) lower respiratory infection; I13.0 Hypertensive heart and chronic kidney disease with heart failure and stage 1 through stage 4 chronic kidney disease, or unspecified chronic kidney disease; E44.1 Mild protein-calorie malnutrition; J44.1 Chronic obstructive pulmonary disease with (acute) exacerbation; I48.20 Chronic atrial fibrillation, unspecified; L97.819 Non-pressure chronic ulcer of other part of right lower leg with unspecified severity; L97.829 Non-pressure chronic ulcer of other part of left lower leg with unspecified severity; I50.32 Chronic diastolic (congestive) heart failure; J98.11 Atelectasis; N17.9 Acute kidney failure, unspecified; J15.9 Unspecified bacterial pneumonia; N18.3 Chronic kidney disease, stage 3 (moderate); I25.10 Atherosclerotic heart disease of native coronary artery without angina pectoris; M19.90 Unspecified osteoarthritis, unspecified site; K21.9 Gastro-esophageal reflux disease without esophagitis; F32.9 Major depressive disorder, single episode, unspecified; N40.0 Benign prostatic hyperplasia without lower urinary tract symptoms; E78.5 Hyperlipidemia, unspecified; F03.90 Unspecified dementia, unspecified severity, without behavioral disturbance, psychotic disturbance, mood disturbance, and anxiety; I70.202 Unspecified atherosclerosis of native arteries of extremities, left leg; I27.20 Pulmonary hypertension, unspecified; N28.1 Cyst of kidney, acquired; I77.810 Thoracic aortic ectasia; E66.9 Obesity, unspecified; Z68.38 Body mass index [BMI] 38.0-38.9, adult; Z88.0 Allergy status to penicillin; Z88.8 Allergy status to other drugs, medicaments and biological substances; Z87.891 Personal history of nicotine dependence; Z90.49 Acquired absence of other specified parts of digestive tract; Z86.73 Personal history of transient ischemic attack (TIA), and cerebral infarction without residual deficits; I25.2 Old myocardial infarction; Z82.49 Family history of ischemic heart disease and other diseases of the circulatory system; J18.9 Pneumonia, unspecified organism
CPT/HCPCS: 36415; 71045; 71250; 80048; 80053; 80202; 81001; 82553; 82962; 83605; 83735; 83880; 84145; 84484; 85007; 85025; 87040; 93005; 93925; 94640; 94760; J1956; J2930; J3370; J7040; J7512; J7620; 92610; 97116; 99285-25; G0378

== ENCOUNTER 2019-09-22 00:21 | Observation (INO) | payer MEDICARE, MEDICAID ==
[~2019-09-22] VITALS: Ht 157.5 cm; Wt 93.9 kg
[~2019-09-22 00:21] MED LIST changes: +AMOX1TAB11 PO; +DOCU-153 PO; +LACT1CAP19 PO; +LEVO500T59 PO; +LINE600T12 PO; +METO-313 PO; +OLAN5TAB5 PO; -OMEP20CA10 PO; +OMEP20CA16 PO; +POTA10TA6 PO; +POTA20TA4 PO; -POTA20TA82 PO; +RISP0.253 PO
--- NOTE | 2019-09-22 00:46 | PHYS DOC ---
Past Medical History Past Medical History: Anemia, CAD, COPD Additional Past Medical Histor: H/A, OBESITY, [place], BPH,AMS,LYMPHEDEMA,MDD,PSYCHOSIS,NSTEMI,DYSPHAGIA Past Surgical History: Appendectomy, Pacemaker, Other Additional Past Surgical Histo: Hernia Alcohol Use: None Drug Use: None Adult General Chief Complaint Chief Complaint: ALTERED MENTAL STATUS HPI HPI Patient is a 84 year old male who presents from group home with report of increased confusion. Patient had been discharged from hospital today and group home staff is reporting that patient has increased confusion over baseline. Patient does have baseline dementia. Difficult to obtain additional history[] Review of Systems Review of Systems Constitutional: Denies fever or chills [] Respiratory: Denies cough or shortness of breath [] Cardiovascular: No additional information not addressed in HPI [] GI: No reported vomiting or diarrhea [] Neurologic: No reported focal weakness or sensory changes [] Unable to fully assess review of systems due to baseline dementia. Current Medications Current Medications Current Medications Medications (Trade) Dose Ordered Sig/Katrina Start Time Stop Time Status Last Admin Dose Admin Sodium Chloride 1,000 ml @ 1,000 mls/hr 1X ONCE 09/22/19 02:15 09/22/19 03:14 09/22/19 02:27 1,000 MLS/HR Allergies Allergies Allergies Coded Allergies Type Severity Reaction Last Updated Verified Penicillins Allergy Intermediate Itching 09/21/19 Yes I S O L A T I O N *CONTACT* Allergy Unknown 10/16/18 Yes Physical Exam Physical Exam Constitutional: Well developed, well nourished, no acute distress, non-toxic appearance. [] HENT: Normocephalic, atraumatic, bilateral external ears normal, oropharynx moist, no oral exudates, nose normal. [] Eyes: PERRLA, EOMI, conjunctiva normal, no discharge. [] Neck: Normal range of motion, no tenderness, supple, no stridor. [] Cardiovascular: Regular rate and rhythm[] Lungs & Thorax: Bilateral breath sounds clear to auscultation [] Abdomen: Bowel sounds normal, soft, no tenderness. [] Skin: Warm, dry, no erythema, no rash. [] Extremities: No tenderness, no cyanosis, no clubbing, ROM intact. [] Neurologic: Awake and alert, no focal deficits noted. [] Current Patient Data Vital Signs Vital Signs Date Time Temp Pulse Resp B/P (MAP) Pulse Ox O2 Delivery O2 Flow Rate FiO2 09/22/19 00:30 98.5 69 16 113/67 (82) 97 Room Air 98.5 Lab Values Laboratory Tests Test 09/22/19 01:00 09/22/19 01:30 White Blood Count 11.6 x10^3/uL (4.0-11.0) H Red Blood Count 5.13 x10^6/uL (4.30-5.70) Hemoglobin 16.7 g/dL (13.0-17.5) Hematocrit 50.9 % (39.0-53.0) Mean Corpuscular Volume 99 fL (79-100) Mean Corpuscular Hemoglobin 33 pg (25-35) Mean Corpuscular Hemoglobin Concent 33 g/dL (31-37) Red Cell Distribution Width 17.1 % (11.5-14.5) H Platelet Count 143 x10^3/uL (140-400) Neutrophils (%) (Auto) 83 % (31-73) H Lymphocytes (%) (Auto) 5 % (24-48) L Monocytes (%) (Auto) 10 % (0-9) H Eosinophils (%) (Auto) 3 % (0-3) Basophils (%) (Auto) 0 % (0-3) Neutrophils # (Auto) 9.6 x10^3/uL (1.8-7.7) H Lymphocytes # (Auto) 0.6 x10^3/uL (1.0-4.8) L Monocytes # (Auto) 1.1 x10^3/uL (0.0-1.1) Eosinophils # (Auto) 0.3 x10^3/uL (0.0-0.7) Basophils # (Auto) 0.0 x10^3/uL (0.0-0.2) Segmented Neutrophils % 87 % (35-66) H Lymphocytes % 6 % (24-48) L Monocytes % 6 % (0-10) Eosinophils % 1 % (0-5) Toxic Granulation Slight Platelet Estimate Adequate (ADEQUATE) Sodium Level 143 mmol/L (136-145) Potassium Level 3.7 mmol/L (3.5-5.1) Chloride Level 105 mmol/L (98-107) Carbon Dioxide Level 27 mmol/L (21-32) Anion Gap 11 (6-14) Blood Urea Nitrogen 41 mg/dL (8-26) #H Creatinine 2.6 mg/dL (0.7-1.3) H Estimated GFR (Cockcroft-Gault) 28.7 BUN/Creatinine Ratio 16 (6-20) Glucose Level 124 mg/dL (70-99) H Calcium Level 8.7 mg/dL (8.5-10.1) Magnesium Level 2.3 mg/dL (1.8-2.4) Total Bilirubin 0.5 mg/dL (0.2-1.0) Aspartate Amino Transferase (AST) 14 U/L (15-37) L Alanine Aminotransferase (ALT) 10 U/L (16-63) L Alkaline Phosphatase 87 U/L (46-116) Total Protein 6.6 g/dL (6.4-8.2) Albumin 2.4 g/dL (3.4-5.0) L Albumin/Globulin Ratio 0.6 (1.0-1.7) L Urine Collection Type Unknown Urine Color Janelle Urine Clarity Clear Urine pH 6.0 Urine Specific [place] 1.020 Urine Protein 30 mg/dL (NEG-TRACE) Urine Glucose (UA) Negative mg/dL (NEG) Urine Ketones (Stick) Negative mg/dL (NEG) Urine Blood Negative (NEG) Urine Nitrite Negative (NEG) Urine Bilirubin Small (NEG) Urine Urobilinogen Dipstick 0.2 mg/dL (0.2 mg/dL) Urine Leukocyte Esterase Negative (NEG) Urine RBC Occ /HPF (0-2) Urine WBC Occ /HPF (0-4) Urine Squamous Epithelial Cells Few /LPF Urine Bacteria 0 /HPF (0-FEW) Urine Hyaline Casts Few /HPF Urine Mucus Slight /LPF Laboratory Tests 09/22/19 01:00 Laboratory Tests 09/22/19 01:00 EKG EKG [] Radiology/Procedures Radiology/Procedures [] Course & Med Decision Making Course & Med Decision Making Pertinent Labs and Imaging studies reviewed. (See chart for details) [] Dragon Disclaimer Dragon Disclaimer This electronic medical record was generated, in whole or in part, using a voice recognition dictation system. Departure Departure Impression: Primary Impression: Acute renal failure Additional Impression: Dehydration Disposition: 09 ADMITTED INPATIENT Admitting Physician: ALFREDO (Dr. Starr) Condition: IMPROVED Referrals: SILAS PINTO MD (PCP) Problem Qualifiers Primary Impression: Acute renal failure Acute renal failure type: unspecified Qualified Codes: N17.9 - Acute kidney failure, unspecified DHIRAJ MEDINA Jr. DO Sep 22, 2019 00:46
[2019-09-22 01:13] LABS: BASO % 0 % (0-3); EOS # 0.3 x10^3/uL (0.0-0.7); EOS % 3 % (0-3); HEMATOCRIT 50.9 % (39.0-53.0); HEMOGLOBIN 16.7 g/dL (13.0-17.5); LYMPH # 0.6 x10^3/uL (1.0-4.8); LYMPH % 5 % (24-48); MEAN CORPUSCULAR HEMOGLOBIN 33 pg (25-35); MEAN CORPUSCULAR HGB CONC 33 g/dL (31-37); MEAN CORPUSCULAR VOLUME 99 fL (79-100); MONO # 1.1 x10^3/uL (0.0-1.1); MONO % 10 % (0-9); NEUT # 9.6 x10^3/uL (1.8-7.7); NEUT % 83 % (31-73); PLATELET COUNT 143 x10^3/uL (140-400); RED BLOOD COUNT 5.13 x10^6/uL (4.30-5.70); RED CELL DISTRIBUTION WIDTH 17.1 % (11.5-14.5); WHITE BLOOD COUNT 11.6 x10^3/uL (4.0-11.0)
[2019-09-22 01:16] LABS: CALCIUM 8.7 mg/dL (8.5-10.1); CREATININE 2.6 mg/dL (0.7-1.3); GFR 28.7; POTASSIUM 3.7 mmol/L (3.5-5.1)
[2019-09-22 01:22] LABS: ALBUMIN 2.4 g/dL (3.4-5.0); ALBUMIN/GLOBULIN RATIO 0.6 (1.0-1.7); MAGNESIUM 2.3 mg/dL (1.8-2.4); TOTAL BILIRUBIN 0.5 mg/dL (0.2-1.0); TOTAL PROTEIN 6.6 g/dL (6.4-8.2)
[2019-09-22 01:37] LABS: BILIRUBIN,URINE SMALL (NEG); CLARITY,URINE CLEAR; COLOR,URINE AMBER; NITRITE,URINE NEGATIVE (NEG); PROTEIN,URINE 30 mg/dL (NEG-TRACE); UROBILINOGEN,URINE 0.2 mg/dL (0.2 mg/dL)
[2019-09-22 01:40] LABS: SQUAMOUS EPITHELIAL CELL,UR FEW /LPF
[2019-09-22 01:41] LABS: BACTERIA,URINE 0 /HPF (0-FEW); HYALINE CASTS, URINE FEW /HPF; RBC,URINE OCC /HPF (0-2); WBC,URINE OCC /HPF (0-4)
[2019-09-22 01:49] LABS: % EOS 1 % (0-5); % LYMPHS 6 % (24-48); % MONOS 6 % (0-10); % SEGS 87 % (35-66); PLT ESTIMATE ADEQUATE (ADEQUATE)
[2019-09-22 01:50] LABS: TOXIC GRANULATION SLIGHT
[2019-09-22] MEDS ORDERED: IV NORMAL SALINE 1000ML BAG 1,000 ML IV ONE (02:15)
[2019-09-22] MEDS ORDERED: ONDANSETRON PF 4 MG/2 ML VIAL. IV PRN (02:45)
--- NOTE | 2019-09-22 03:30 | NUR ---
Patient admitted from ER to room 408 per cart. Admitting diagnosis: dehydration and acute kidney injury. Patient was discharged from [facility] on 09/21/2019 at 5pm and returned to [facility] several hours later. Patient is confused, trying to get out of bed. Informed patient that he needed to stay in bed. Bed alarm on. Nursing staff at [facility] stated that patient was confused,hallucinating and fell twice within 45 minutes. Patient has skin tear on right leg and fourth toe on left foot. 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 Will continue to monitor.
[2019-09-22 04:19] VITALS: BP 108/46
[2019-09-22] MEDS ORDERED: ZIPRASIDONE IM 20 MG VIAL. IM ONE (04:45)
[2019-09-22] MEDS ORDERED: INFLUENZA VAX SCREEN BY RX. MC SCH (05:29)
[2019-09-22 07:00] VITALS: BP 112/62
[2019-09-22] MEDS: IV NORMAL SALINE 1000ML BAG 1,000 ML IV SCH ×3 (08:02→16:53)
--- NOTE | 2019-09-22 10:07 | PDOC1 ---
History and Physical Date of Admission Date of Admission DATE: 09/22/19 TIME: 10:07 Identification/Chief Complaint Chief Complaint presented from [facility] with report of increased confusion 09/21 . discharged 09/21 but was readmitted due to fall. Past Medical History Past Medical History Past Medical History Past Medical History Past Medical History: Anemia, CAD, COPD Additional Past Medical Histor: H/A, OBESITY, MORONGO, BPH,AMS,LYMPHEDEMA,MDD,PSYCHOSIS,NSTEMI,DYSPHAGIA Past Surgical History: Appendectomy, Pacemaker, Other Additional Past Surgical Histo: Hernia Alcohol Use: None Drug Use: None Cardiovascular: CAD, CHF, HTN, Hyperlipidemia, Other Pulmonary: COPD, Pneumonia CENTRAL NERVOUS SYSTEM: Dementia GI: GERD, Other Heme/Onc: Anemia NOS Psych: Depression, Other Musculoskeletal: Osteoarthritis, Weakness Rheumatologic: Other Renal/: Chronic renal insuff, Benign prostatic enlarg. Past Surgical History Past Surgical History: Pacemaker, Appendectomy, Cholecystectomy, Other Family History Family History: Heart Disease, Hypertension Social History Smoke: No ALCOHOL: none Drugs: None Current Problem List Problem List Problems Medical Problems: (1) Acute renal failure Status: Acute (2) Dehydration Status: Acute Current Medications Current Medications Current Medications Sodium Chloride 1,000 ml @ 1,000 mls/hr 1X ONCE IV Last administered on 09/22/19at 02:27; Start 09/22/19 at 02:15; Stop 09/22/19 at 03:14; Status DC Ondansetron HCl (Zofran) 4 mg PRN Q8HRS PRN IV NAUSEA/VOMITING; Start 09/22/19 at 02:45; Stop 09/23/19 at 02:44 Sodium Chloride 1,000 ml @ 125 mls/hr Q8H IV Last administered on 09/22/19at 08:02; Start 09/22/19 at 02:45; Stop 09/23/19 at 02:44 Ziprasidone (Geodon Im) 10 mg 1X ONCE IM Last administered on 09/22/19at 04:53; Start 09/22/19 at 04:45; Stop 09/22/19 at 04:46; Status DC Info (FLU VACCINE SCREEN per RX) 0529 [facility] ; Start 09/22/19 at 05:29; Status UNV Active Scripts Active Zyvox (Linezolid) 600 Mg Tablet 600 Mg PO BID 10 Days Culturelle (Lactobacillus Rhamnosus Gg) 1 Each Cap.sprink 1 Cap PO BID 30 Days Dok (Docusate Sodium) 100 Mg Capsule 100 Mg PO PRN BID PRN 30 Days Risperidone 0.25 Mg Tablet 0.5 Mg PO BID 10 Days Amox Tr-K Clv 875-125 Mg Tab (Amoxicillin/Potassium Clav) 1 Each Tablet 1 Tab PO BID 10 Days Zyprexa Zydis (Olanzapine) 5 Mg Tab.rapdis 5 Mg PO PRN BID PRN 30 Days Hydrocodone-Apap 5-325 (Hydrocodone Bit/Acetaminophen) 1 Tab Tablet 1 Tab PO PRN Q4HRS PRN 5 Days Prednisone (Prednisone) 10 Mg Tablet 10 Mg PO DAILY 30 Days Proventil Hfa (Albuterol Sulfate) 6.7 Gm Hfa.aer.ad 1 Puff INH PRN Q6HRS PRN Amlodipine Besylate 10 Mg Tablet 10 Mg PO DAILY MDD 1 30 Days Hydralazine Hcl 25 Mg Tablet 25 Mg PO TID MDD 1 30 Days Aspirin Ec (Aspirin) 81 Mg Tablet.dr 81 Mg PO DAILYWBKFT 30 Days Duoneb 0.5-3(2.5) Mg/3 Ml (Albuterol/Ipratropium) 3 Ml Ampul.neb 3 Ml NEB RTQID 30 Days Reported Klor-Con 10 (Potassium Chloride) 10 Meq Tablet.er 20 Meq PO DAILY PRN Lasix (Furosemide) 20 Mg Tablet 1 Tab PO DAILY 30 Days Lopressor (Metoprolol Tartrate) 100 Mg Tablet 50 Mg PO BID Nystatin 15 Gm Powder 1 Alberto TP BID Milk Of Magnesia (Magnesium Hydroxide) 400 Mg/5 Ml Oral.susp 400 Mg PO PRN DAILY PRN Mag-Oxide (Magnesium Oxide) 400 Mg Tablet 1 Tab PO BID Miralax (Polyethylene Glycol 3350) 17 Gm Powd.pack 1 Packet PO PRN DAILY PRN Tylenol (Acetaminophen) 325 Mg Tablet 1 Tab PO PRN Q6HRS PRN Famotidine 20 Mg Tablet 20 Mg PO HS Allergies Allergies: Coded Allergies: Penicillins (Verified Allergy, Intermediate, Itching, 09/21/19) Tolerates zosyn, augmentin I S O L A T I O N *CONTACT* (Verified Allergy, Unknown, 10/16/18) mrsa ROS Review of System Review of Systems Review of Systems Constitutional: Denies fever or chills [] Respiratory: Denies cough or shortness of breath [] Cardiovascular: No additional information not addressed in HPI [] GI: No reported vomiting or diarrhea [] Neurologic: No reported focal weakness or sensory changes [] Unable to fully assess review of systems due to baseline dementia. General: YES: Fatigue Gastrointestinal: No Nausea, No Vomiting, No Abdominal Pain, No Diarrhea, No Constipation, No Melena, No Hematochezia, No Other Skin: Yes Dry Skin Physical Exam Physical Exam CONSTITUTIONAL: He is inbed. He is in no acute distress. Appears comfortable HEENT: He has normal conjunctivae. Oral cavity, pharynx is clear. NECK: Supple. Good range of motion, no JVD. LUNGS: Clear. HEART: S1, S2. ABDOMEN: Obese, soft, nontender, nondistended with positive bowel sounds. SKIN: Right second toe wound site is clean, no bleeding. The sutures are intact, was nontender. There is no odor, no pus, no surrounding erythema. General: Alert, Oriented X3, Cooperative, No acute distress Heart: Regular rate, Normal S1, Normal S2, No murmurs Lungs: Clear, Other Abdomen: Normal bowel sounds, Soft, Other (morbidly obese) Extremities: No cyanosis, No edema, Other (palpable femoral pulses bilaterally, no Doppler signals at the pedal location on the right) Skin: chronic venous stasis changes of the right lower extremity surgical sit wnl dry, dressed General: Cooperative, No acute distress HEENT: Atraumatic Lungs: Clear to auscultation Heart: RRR Abdomen: Soft Rectal Exam: not examined Extremities: No cyanosis Neuro: Cranial nerves 3-12 NL Vitals Vitals Vital Signs Date Time Temp Pulse Resp B/P (MAP) Pulse Ox O2 Delivery O2 Flow Rate FiO2 09/22/19 08:00 Room Air 09/22/19 07:00 98.2 69 20 112/62 (79) 98 98.2 Labs Labs Laboratory Tests Test 09/22/19 01:00 09/22/19 01:30 White Blood Count 11.6 x10^3/uL (4.0-11.0) Red Blood Count 5.13 x10^6/uL (4.30-5.70) Hemoglobin 16.7 g/dL (13.0-17.5) Hematocrit 50.9 % (39.0-53.0) Mean Corpuscular Volume 99 fL (79-100) Mean Corpuscular Hemoglobin 33 pg (25-35) Mean Corpuscular Hemoglobin Concent 33 g/dL (31-37) Red Cell Distribution Width 17.1 % (11.5-14.5) Platelet Count 143 x10^3/uL (140-400) Neutrophils (%) (Auto) 83 % (31-73) Lymphocytes (%) (Auto) 5 % (24-48) Monocytes (%) (Auto) 10 % (0-9) Eosinophils (%) (Auto) 3 % (0-3) Basophils (%) (Auto) 0 % (0-3) Neutrophils # (Auto) 9.6 x10^3/uL (1.8-7.7) Lymphocytes # (Auto) 0.6 x10^3/uL (1.0-4.8) Monocytes # (Auto) 1.1 x10^3/uL (0.0-1.1) Eosinophils # (Auto) 0.3 x10^3/uL (0.0-0.7) Basophils # (Auto) 0.0 x10^3/uL (0.0-0.2) Segmented Neutrophils % 87 % (35-66) Lymphocytes % 6 % (24-48) Monocytes % 6 % (0-10) Eosinophils % 1 % (0-5) Toxic Granulation Slight Platelet Estimate Adequate (ADEQUATE) Sodium Level 143 mmol/L (136-145) Potassium Level 3.7 mmol/L (3.5-5.1) Chloride Level 105 mmol/L (98-107) Carbon Dioxide Level 27 mmol/L (21-32) Anion Gap 11 (6-14) Blood Urea Nitrogen 41 mg/dL (8-26) Creatinine 2.6 mg/dL (0.7-1.3) Estimated GFR (Cockcroft-Gault) 28.7 BUN/Creatinine Ratio 16 (6-20) Glucose Level 124 mg/dL (70-99) Calcium Level 8.7 mg/dL (8.5-10.1) Magnesium Level 2.3 mg/dL (1.8-2.4) Total Bilirubin 0.5 mg/dL (0.2-1.0) Aspartate Amino Transf (AST/SGOT) 14 U/L (15-37) Alanine Aminotransferase (ALT/SGPT) 10 U/L (16-63) Alkaline Phosphatase 87 U/L (46-116) Total Protein 6.6 g/dL (6.4-8.2) Albumin 2.4 g/dL (3.4-5.0) Albumin/Globulin Ratio 0.6 (1.0-1.7) Urine Collection Type Unknown Urine Color Janelle Urine Clarity Clear Urine pH 6.0 Urine Specific [place] 1.020 Urine Protein 30 mg/dL (NEG-TRACE) Urine Glucose (UA) Negative mg/dL (NEG) Urine Ketones (Stick) Negative mg/dL (NEG) Urine Blood Negative (NEG) Urine Nitrite Negative (NEG) Urine Bilirubin Small (NEG) Urine Urobilinogen Dipstick 0.2 mg/dL (0.2 mg/dL) Urine Leukocyte Esterase Negative (NEG) Urine RBC Occ /HPF (0-2) Urine WBC Occ /HPF (0-4) Urine Squamous Epithelial Cells Few /LPF Urine Bacteria 0 /HPF (0-FEW) Urine Hyaline Casts Few /HPF Urine Mucus Slight /LPF Laboratory Tests Test 09/22/19 01:00 09/22/19 01:30 White Blood Count 11.6 x10^3/uL (4.0-11.0) Red Blood Count 5.13 x10^6/uL (4.30-5.70) Hemoglobin 16.7 g/dL (13.0-17.5) Hematocrit 50.9 % (39.0-53.0) Mean Corpuscular Volume 99 fL (79-100) Mean Corpuscular Hemoglobin 33 pg (25-35) Mean Corpuscular Hemoglobin Concent 33 g/dL (31-37) Red Cell Distribution Width 17.1 % (11.5-14.5) Platelet Count 143 x10^3/uL (140-400) Neutrophils (%) (Auto) 83 % (31-73) Lymphocytes (%) (Auto) 5 % (24-48) Monocytes (%) (Auto) 10 % (0-9) Eosinophils (%) (Auto) 3 % (0-3) Basophils (%) (Auto) 0 % (0-3) Neutrophils # (Auto) 9.6 x10^3/uL (1.8-7.7) Lymphocytes # (Auto) 0.6 x10^3/uL (1.0-4.8) Monocytes # (Auto) 1.1 x10^3/uL (0.0-1.1) Eosinophils # (Auto) 0.3 x10^3/uL (0.0-0.7) Basophils # (Auto) 0.0 x10^3/uL (0.0-0.2) Segmented Neutrophils % 87 % (35-66) Lymphocytes % 6 % (24-48) Monocytes % 6 % (0-10) Eosinophils % 1 % (0-5) Toxic Granulation Slight Platelet Estimate Adequate (ADEQUATE) Sodium Level 143 mmol/L (136-145) Potassium Level 3.7 mmol/L (3.5-5.1) Chloride Level 105 mmol/L (98-107) Carbon Dioxide Level 27 mmol/L (21-32) Anion Gap 11 (6-14) Blood Urea Nitrogen 41 mg/dL (8-26) Creatinine 2.6 mg/dL (0.7-1.3) Estimated GFR (Cockcroft-Gault) 28.7 BUN/Creatinine Ratio 16 (6-20) Glucose Level 124 mg/dL (70-99) Calcium Level 8.7 mg/dL (8.5-10.1) Magnesium Level 2.3 mg/dL (1.8-2.4) Total Bilirubin 0.5 mg/dL (0.2-1.0) Aspartate Amino Transf (AST/SGOT) 14 U/L (15-37) Alanine Aminotransferase (ALT/SGPT) 10 U/L (16-63) Alkaline Phosphatase 87 U/L (46-116) Total Protein 6.6 g/dL (6.4-8.2) Albumin 2.4 g/dL (3.4-5.0) Albumin/Globulin Ratio 0.6 (1.0-1.7) Urine Collection Type Unknown Urine Color Janelle Urine Clarity Clear Urine pH 6.0 Urine Specific [place] 1.020 Urine Protein 30 mg/dL (NEG-TRACE) Urine Glucose (UA) Negative mg/dL (NEG) Urine Ketones (Stick) Negative mg/dL (NEG) Urine Blood Negative (NEG) Urine Nitrite Negative (NEG) Urine Bilirubin Small (NEG) Urine Urobilinogen Dipstick 0.2 mg/dL (0.2 mg/dL) Urine Leukocyte Esterase Negative (NEG) Urine RBC Occ /HPF (0-2) Urine WBC Occ /HPF (0-4) Urine Squamous Epithelial Cells Few /LPF Urine Bacteria 0 /HPF (0-FEW) Urine Hyaline Casts Few /HPF Urine Mucus Slight /LPF VTE Prophylaxis Ordered VTE Prophylaxis Devices: Contraindicated VTE Pharmacological Prophylaxi: Yes Assessment/Plan Assessment/Plan impression ACUTE PSYCHMOTOR AGITATION Right second toe necrotic ulcer 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 Peripheral arterial disease. 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 angiogram with possible int ervention of the right lower extremity History of PVD History of essential hypertension Elevated lactic acid without evidence of toxicity or septic picture 07/16 Monophasic, diminished flow involving the right lower extremity arterial vasculature for a distal superficial femoral artery to dorsalis pedis artery evident. confused due to dementia, Plan: Abdominal aortogram with right leg runoff 09/19 Selective catheter placement right distal SFA (3rd order) Right 2nd toe amputation 09/19 resume home meds agitated with nursing staff at times DVT prophylaxis: as per [employer] sales consultant angiogram with intervention of the right lower extremity 09/19 56 min pt exam, chart review > 50% of time spent with exam, chart review, pt care coordination CARLOS LINDSEY MD Sep 22, 2019 10:07
[2019-09-22 11:00] VITALS: BP 134/75
--- NOTE | 2019-09-22 12:50 | PDOC ---
PROGRESS NOTES Subjective Subjective He was discharged yesterday, but was readmitted due to fall. He remains very confused with chronic dementia. Objective Objective Vital Signs Date Time Temp Pulse Resp B/P (MAP) Pulse Ox O2 Delivery O2 Flow Rate FiO2 09/22/19 11:00 98.0 70 20 134/75 (94) 98 Room Air 98.0 Intake and Output 09/22/19 07:00 Output Total 325 ml Balance -325 ml Output Urine Total 325 ml Physical Exam Abdomen: Soft, No tenderness Heart: Regular rate Extremities: Other (right 2nd toe amputaion incision intact, some surrounding crusting, left small toe abrasion (new)) Assessment Assessment Problems Medical Problems: (1) Acute renal failure Status: Acute (2) Dehydration Status: Acute 3) s/p right 2nd toe amputation 4) Peripheral artery disease Plan Plan of Care Wash feet with soap and water. Dry gauze to amputation incision. Comment Review of Relevant I have reviewed the following items patrick (where applicable) has been applied. Labs Laboratory Tests Test 09/22/19 01:00 09/22/19 01:30 White Blood Count 11.6 x10^3/uL (4.0-11.0) Red Blood Count 5.13 x10^6/uL (4.30-5.70) Hemoglobin 16.7 g/dL (13.0-17.5) Hematocrit 50.9 % (39.0-53.0) Mean Corpuscular Volume 99 fL (79-100) Mean Corpuscular Hemoglobin 33 pg (25-35) Mean Corpuscular Hemoglobin Concent 33 g/dL (31-37) Red Cell Distribution Width 17.1 % (11.5-14.5) Platelet Count 143 x10^3/uL (140-400) Neutrophils (%) (Auto) 83 % (31-73) Lymphocytes (%) (Auto) 5 % (24-48) Monocytes (%) (Auto) 10 % (0-9) Eosinophils (%) (Auto) 3 % (0-3) Basophils (%) (Auto) 0 % (0-3) Neutrophils # (Auto) 9.6 x10^3/uL (1.8-7.7) Lymphocytes # (Auto) 0.6 x10^3/uL (1.0-4.8) Monocytes # (Auto) 1.1 x10^3/uL (0.0-1.1) Eosinophils # (Auto) 0.3 x10^3/uL (0.0-0.7) Basophils # (Auto) 0.0 x10^3/uL (0.0-0.2) Segmented Neutrophils % 87 % (35-66) Lymphocytes % 6 % (24-48) Monocytes % 6 % (0-10) Eosinophils % 1 % (0-5) Toxic Granulation Slight Platelet Estimate Adequate (ADEQUATE) Sodium Level 143 mmol/L (136-145) Potassium Level 3.7 mmol/L (3.5-5.1) Chloride Level 105 mmol/L (98-107) Carbon Dioxide Level 27 mmol/L (21-32) Anion Gap 11 (6-14) Blood Urea Nitrogen 41 mg/dL (8-26) Creatinine 2.6 mg/dL (0.7-1.3) Estimated GFR (Cockcroft-Gault) 28.7 BUN/Creatinine Ratio 16 (6-20) Glucose Level 124 mg/dL (70-99) Calcium Level 8.7 mg/dL (8.5-10.1) Magnesium Level 2.3 mg/dL (1.8-2.4) Total Bilirubin 0.5 mg/dL (0.2-1.0) Aspartate Amino Transf (AST/SGOT) 14 U/L (15-37) Alanine Aminotransferase (ALT/SGPT) 10 U/L (16-63) Alkaline Phosphatase 87 U/L (46-116) Total Protein 6.6 g/dL (6.4-8.2) Albumin 2.4 g/dL (3.4-5.0) Albumin/Globulin Ratio 0.6 (1.0-1.7) Urine Collection Type Unknown Urine Color Janelle Urine Clarity Clear Urine pH 6.0 Urine Specific [place] 1.020 Urine Protein 30 mg/dL (NEG-TRACE) Urine Glucose (UA) Negative mg/dL (NEG) Urine Ketones (Stick) Negative mg/dL (NEG) Urine Blood Negative (NEG) Urine Nitrite Negative (NEG) Urine Bilirubin Small (NEG) Urine Urobilinogen Dipstick 0.2 mg/dL (0.2 mg/dL) Urine Leukocyte Esterase Negative (NEG) Urine RBC Occ /HPF (0-2) Urine WBC Occ /HPF (0-4) Urine Squamous Epithelial Cells Few /LPF Urine Bacteria 0 /HPF (0-FEW) Urine Hyaline Casts Few /HPF Urine Mucus Slight /LPF Laboratory Tests Test 09/22/19 01:00 09/22/19 01:30 White Blood Count 11.6 x10^3/uL (4.0-11.0) Red Blood Count 5.13 x10^6/uL (4.30-5.70) Hemoglobin 16.7 g/dL (13.0-17.5) Hematocrit 50.9 % (39.0-53.0) Mean Corpuscular Volume 99 fL (79-100) Mean Corpuscular Hemoglobin 33 pg (25-35) Mean Corpuscular Hemoglobin Concent 33 g/dL (31-37) Red Cell Distribution Width 17.1 % (11.5-14.5) Platelet Count 143 x10^3/uL (140-400) Neutrophils (%) (Auto) 83 % (31-73) Lymphocytes (%) (Auto) 5 % (24-48) Monocytes (%) (Auto) 10 % (0-9) Eosinophils (%) (Auto) 3 % (0-3) Basophils (%) (Auto) 0 % (0-3) Neutrophils # (Auto) 9.6 x10^3/uL (1.8-7.7) Lymphocytes # (Auto) 0.6 x10^3/uL (1.0-4.8) Monocytes # (Auto) 1.1 x10^3/uL (0.0-1.1) Eosinophils # (Auto) 0.3 x10^3/uL (0.0-0.7) Basophils # (Auto) 0.0 x10^3/uL (0.0-0.2) Segmented Neutrophils % 87 % (35-66) Lymphocytes % 6 % (24-48) Monocytes % 6 % (0-10) Eosinophils % 1 % (0-5) Toxic Granulation Slight Platelet Estimate Adequate (ADEQUATE) Sodium Level 143 mmol/L (136-145) Potassium Level 3.7 mmol/L (3.5-5.1) Chloride Level 105 mmol/L (98-107) Carbon Dioxide Level 27 mmol/L (21-32) Anion Gap 11 (6-14) Blood Urea Nitrogen 41 mg/dL (8-26) Creatinine 2.6 mg/dL (0.7-1.3) Estimated GFR (Cockcroft-Gault) 28.7 BUN/Creatinine Ratio 16 (6-20) Glucose Level 124 mg/dL (70-99) Calcium Level 8.7 mg/dL (8.5-10.1) Magnesium Level 2.3 mg/dL (1.8-2.4) Total Bilirubin 0.5 mg/dL (0.2-1.0) Aspartate Amino Transf (AST/SGOT) 14 U/L (15-37) Alanine Aminotransferase (ALT/SGPT) 10 U/L (16-63) Alkaline Phosphatase 87 U/L (46-116) Total Protein 6.6 g/dL (6.4-8.2) Albumin 2.4 g/dL (3.4-5.0) Albumin/Globulin Ratio 0.6 (1.0-1.7) Urine Collection Type Unknown Urine Color Janelle Urine Clarity Clear Urine pH 6.0 Urine Specific [place] 1.020 Urine Protein 30 mg/dL (NEG-TRACE) Urine Glucose (UA) Negative mg/dL (NEG) Urine Ketones (Stick) Negative mg/dL (NEG) Urine Blood Negative (NEG) Urine Nitrite Negative (NEG) Urine Bilirubin Small (NEG) Urine Urobilinogen Dipstick 0.2 mg/dL (0.2 mg/dL) Urine Leukocyte Esterase Negative (NEG) Urine RBC Occ /HPF (0-2) Urine WBC Occ /HPF (0-4) Urine Squamous Epithelial Cells Few /LPF Urine Bacteria 0 /HPF (0-FEW) Urine Hyaline Casts Few /HPF Urine Mucus Slight /LPF Medications Current Medications Sodium Chloride 1,000 ml @ 1,000 mls/hr 1X ONCE IV Last administered on 09/22/19at 02:27; Start 09/22/19 at 02:15; Stop 09/22/19 at 03:14; Status DC Ondansetron HCl (Zofran) 4 mg PRN Q8HRS PRN IV NAUSEA/VOMITING; Start 09/22/19 at 02:45; Stop 09/23/19 at 02:44 Sodium Chloride 1,000 ml @ 125 mls/hr Q8H IV Last administered on 09/22/19at 08:02; Start 09/22/19 at 02:45; Stop 09/23/19 at 02:44 Ziprasidone (Geodon Im) 10 mg 1X ONCE IM Last administered on 09/22/19at 04:53; Start 09/22/19 at 04:45; Stop 09/22/19 at 04:46; Status DC Info (FLU VACCINE SCREEN per RX) 0529 ; Start 09/22/19 at 05:29; Status UNV Active Scripts Active Zyvox (Linezolid) 600 Mg Tablet 600 Mg PO BID 10 Days Culturelle (Lactobacillus Rhamnosus Gg) 1 Each Cap.sprink 1 Cap PO BID 30 Days Dok (Docusate Sodium) 100 Mg Capsule 100 Mg PO PRN BID PRN 30 Days Risperidone 0.25 Mg Tablet 0.5 Mg PO BID 10 Days Amox Tr-K Clv 875-125 Mg Tab (Amoxicillin/Potassium Clav) 1 Each Tablet 1 Tab PO BID 10 Days Zyprexa Zydis (Olanzapine) 5 Mg Tab.rapdis 5 Mg PO PRN BID PRN 30 Days Hydrocodone-Apap 5-325 (Hydrocodone Bit/Acetaminophen) 1 Tab Tablet 1 Tab PO PRN Q4HRS PRN 5 Days Prednisone (Prednisone) 10 Mg Tablet 10 Mg PO DAILY 30 Days Proventil Hfa (Albuterol Sulfate) 6.7 Gm Hfa.aer.ad 1 Puff INH PRN Q6HRS PRN Amlodipine Besylate 10 Mg Tablet 10 Mg PO DAILY MDD 1 30 Days Hydralazine Hcl 25 Mg Tablet 25 Mg PO TID MDD 1 30 Days Aspirin Ec (Aspirin) 81 Mg Tablet.dr 81 Mg PO DAILYWBKFT 30 Days Duoneb 0.5-3(2.5) Mg/3 Ml (Albuterol/Ipratropium) 3 Ml Ampul.neb 3 Ml NEB RTQID 30 Days Reported Klor-Con 10 (Potassium Chloride) 10 Meq Tablet.er 20 Meq PO DAILY PRN Lasix (Furosemide) 20 Mg Tablet 1 Tab PO DAILY 30 Days Lopressor (Metoprolol Tartrate) 100 Mg Tablet 50 Mg PO BID Nystatin 15 Gm Powder 1 Alberto TP BID Milk Of Magnesia (Magnesium Hydroxide) 400 Mg/5 Ml Oral.susp 400 Mg PO PRN DAILY PRN Mag-Oxide (Magnesium Oxide) 400 Mg Tablet 1 Tab PO BID Miralax (Polyethylene Glycol 3350) 17 Gm Powd.pack 1 Packet PO PRN DAILY PRN Tylenol (Acetaminophen) 325 Mg Tablet 1 Tab PO PRN Q6HRS PRN Famotidine 20 Mg Tablet 20 Mg PO HS Vitals/I & O Vital Sign - Last 24 Hours 09/22/19 09/22/19 09/22/19 09/22/19 00:30 03:07 04:00 04:19 Temp 98.5 98.3 98.1 98.5 98.3 98.1 Pulse 69 69 69 Resp 16 16 18 B/P (MAP) 113/67 (82) 108/46 (66) Pulse Ox 97 100 96 O2 Delivery Room Air Room Air Room Air 09/22/19 09/22/19 09/22/19 07:00 08:00 11:00 Temp 98.2 98.0 98.2 98.0 Pulse 69 70 Resp 20 20 B/P (MAP) 112/62 (79) 134/75 (94) Pulse Ox 98 98 O2 Delivery Room Air Room Air Room Air Intake and Output 09/21/19 09/21/19 09/22/19 15:00 23:00 07:00 Output Total 325 ml Balance -325 ml GAMAL PAULINO MD Sep 22, 2019 12:50
[2019-09-22 15:00] VITALS: BP 156/87
[2019-09-22] MEDS ORDERED: DOCUSATE SODIUM 100 MG CAPSULE. PO PRN (15:30)
[2019-09-22] MEDS ORDERED: NON FORMULARY ITEM (Albuterol Sulfate (Proventil Hfa) 1 PUFF) INH PRN (15:30)
[2019-09-22] MEDS ORDERED: POLYETHYLENE GLYCOL 3350 17 GM PACKET. PO PRN (15:30)
[2019-09-22] MEDS ORDERED: MAGNESIUM HYDROXIDE 2,400 MG/30 ML ORAL.SUSP. PO PRN (15:30)
[2019-09-22] MEDS ORDERED: ACETAMINOPHEN 325 MG TABLET. PO PRN (15:30)
[2019-09-22] MEDS ORDERED: ALBUTEROL SULFATE 2.5 MG/3 ML NEBU. NEB PRN (15:45)
[2019-09-22] MEDS: hydrALAZINE 25 MG TABLET PO SCH ×2 (16:00→20:17)
[2019-09-22 19:00] VITALS: BP 138/76
[2019-09-22] MEDS: IPRATRPIUM/ALBUTEROL 0.5/2.5MG 3 ML NEBU. NEB SCH ×2 (20:04→20:08)
[2019-09-22] MEDS: LACTOBACILLUS RHAMNOSUS GG 1 CAPSULE. PO SCH (20:16)
[2019-09-22] MEDS: MAGNESIUM OXIDE 400 MG TABLET PO SCH (20:17)
[2019-09-22] MEDS: risperiDONE 0.25 MG TABLET. PO SCH (20:17)
[2019-09-22] MEDS: AMOXICILLIN/K CLAV 500/125MG TABLET. PO SCH (20:17)
[2019-09-22] MEDS: HYDROcodone/APAP 5/325MG 1 TAB TABLET PO PRN (20:18)
[2019-09-22] MEDS: METOPROLOL TART IMMED RELEASE 50 MG TABLET. PO SCH (20:18)
[2019-09-22] MEDS: LINEZOLID 600 MG TABLET PO SCH (20:18)
[2019-09-22] MEDS: NYSTATIN TOPICAL POWDER 15GM BOTTLE. TP SCH (20:19)
[2019-09-22] MEDS ORDERED: FAMOTIDINE 20 MG TABLET. PO SCH (21:00)
[2019-09-22 23:00] VITALS: BP 122/73
[2019-09-23] MEDS: HYDROcodone/APAP 5/325MG 1 TAB TABLET PO PRN ×2 (02:23→08:13)
[2019-09-23 03:00] VITALS: BP 109/67
[2019-09-23 06:26] LABS: ALBUMIN 2.2 g/dL (3.4-5.0); CREATININE 1.4 mg/dL (0.7-1.3); GFR 58.6; PHOSPHORUS 3.5 mg/dL (2.6-4.7); POTASSIUM 4.2 mmol/L (3.5-5.1)
[2019-09-23] MEDS: IV NORMAL SALINE 1000ML BAG 1,000 ML IV SCH (06:38)
[2019-09-23 07:00] VITALS: BP 140/64
[2019-09-23] MEDS: IPRATRPIUM/ALBUTEROL 0.5/2.5MG 3 ML NEBU. NEB SCH ×2 (07:31→11:35)
--- NOTE | 2019-09-23 07:40 | PDOC ---
SURGICAL PROGRESS NOTE Subjective Patient was seen and examined at the bedside this morning and is doing well. He had no acute events overnight. Vital Signs Vital Signs Date Time Temp Pulse Resp B/P (MAP) Pulse Ox O2 Delivery O2 Flow Rate FiO2 09/23/19 07:33 98 Room Air 09/23/19 07:00 97.3 70 18 140/64 (89) 97.3 I&O Intake and Output 09/23/19 07:00 Intake Total 1388 ml Output Total 1075 ml Balance 313 ml Intake Oral 388 ml IV Total 1000 ml Output Urine Total 1075 ml # Voids 3 General: Alert, Oriented X3, Cooperative Extremities: Other (right second toe amputation is clean, dry, and intact. There is no significant cellulitis) Labs Laboratory Tests Test 09/22/19 01:00 09/22/19 01:30 09/23/19 05:20 White Blood Count 11.6 x10^3/uL (4.0-11.0) Red Blood Count 5.13 x10^6/uL (4.30-5.70) Hemoglobin 16.7 g/dL (13.0-17.5) Hematocrit 50.9 % (39.0-53.0) Mean Corpuscular Volume 99 fL (79-100) Mean Corpuscular Hemoglobin 33 pg (25-35) Mean Corpuscular Hemoglobin Concent 33 g/dL (31-37) Red Cell Distribution Width 17.1 % (11.5-14.5) Platelet Count 143 x10^3/uL (140-400) Neutrophils (%) (Auto) 83 % (31-73) Lymphocytes (%) (Auto) 5 % (24-48) Monocytes (%) (Auto) 10 % (0-9) Eosinophils (%) (Auto) 3 % (0-3) Basophils (%) (Auto) 0 % (0-3) Neutrophils # (Auto) 9.6 x10^3/uL (1.8-7.7) Lymphocytes # (Auto) 0.6 x10^3/uL (1.0-4.8) Monocytes # (Auto) 1.1 x10^3/uL (0.0-1.1) Eosinophils # (Auto) 0.3 x10^3/uL (0.0-0.7) Basophils # (Auto) 0.0 x10^3/uL (0.0-0.2) Segmented Neutrophils % 87 % (35-66) Lymphocytes % 6 % (24-48) Monocytes % 6 % (0-10) Eosinophils % 1 % (0-5) Toxic Granulation Slight Platelet Estimate Adequate (ADEQUATE) Sodium Level 143 mmol/L (136-145) 148 mmol/L (136-145) Potassium Level 3.7 mmol/L (3.5-5.1) 4.2 mmol/L (3.5-5.1) Chloride Level 105 mmol/L (98-107) 113 mmol/L (98-107) Carbon Dioxide Level 27 mmol/L (21-32) 27 mmol/L (21-32) Anion Gap 11 (6-14) 8 (6-14) Blood Urea Nitrogen 41 mg/dL (8-26) 23 mg/dL (8-26) Creatinine 2.6 mg/dL (0.7-1.3) 1.4 mg/dL (0.7-1.3) Estimated GFR (Cockcroft-Gault) 28.7 58.6 BUN/Creatinine Ratio 16 (6-20) Glucose Level 124 mg/dL (70-99) 73 mg/dL (70-99) Calcium Level 8.7 mg/dL (8.5-10.1) 8.0 mg/dL (8.5-10.1) Magnesium Level 2.3 mg/dL (1.8-2.4) Total Bilirubin 0.5 mg/dL (0.2-1.0) Aspartate Amino Transf (AST/SGOT) 14 U/L (15-37) Alanine Aminotransferase (ALT/SGPT) 10 U/L (16-63) Alkaline Phosphatase 87 U/L (46-116) Total Protein 6.6 g/dL (6.4-8.2) Albumin 2.4 g/dL (3.4-5.0) 2.2 g/dL (3.4-5.0) Albumin/Globulin Ratio 0.6 (1.0-1.7) Urine Collection Type Unknown Urine Color Janelle Urine Clarity Clear Urine pH 6.0 Urine Specific [place] 1.020 Urine Protein 30 mg/dL (NEG-TRACE) Urine Glucose (UA) Negative mg/dL (NEG) Urine Ketones (Stick) Negative mg/dL (NEG) Urine Blood Negative (NEG) Urine Nitrite Negative (NEG) Urine Bilirubin Small (NEG) Urine Urobilinogen Dipstick 0.2 mg/dL (0.2 mg/dL) Urine Leukocyte Esterase Negative (NEG) Urine RBC Occ /HPF (0-2) Urine WBC Occ /HPF (0-4) Urine Squamous Epithelial Cells Few /LPF Urine Bacteria 0 /HPF (0-FEW) Urine Hyaline Casts Few /HPF Urine Mucus Slight /LPF Phosphorus Level 3.5 mg/dL (2.6-4.7) Laboratory Tests Test 09/23/19 05:20 Sodium Level 148 mmol/L (136-145) Potassium Level 4.2 mmol/L (3.5-5.1) Chloride Level 113 mmol/L (98-107) Carbon Dioxide Level 27 mmol/L (21-32) Anion Gap 8 (6-14) Blood Urea Nitrogen 23 mg/dL (8-26) Creatinine 1.4 mg/dL (0.7-1.3) Estimated GFR (Cockcroft-Gault) 58.6 Glucose Level 73 mg/dL (70-99) Calcium Level 8.0 mg/dL (8.5-10.1) Phosphorus Level 3.5 mg/dL (2.6-4.7) Albumin 2.2 g/dL (3.4-5.0) Problem List Problems Medical Problems: (1) Acute renal failure Status: Acute (2) Dehydration Status: Acute Assessment/Plan 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 He will need to see us in the office for suture removal in 2-3 weeks. He should utilize a forefoot offloading shoe for any type of ambulation. Vascular surgery will sign off at this time. Please not hesitate to call with questions or concerns. Steven Park DO, STEVEN TORO DO Sep 23, 2019 07:40
[2019-09-23] MEDS ORDERED: ASPIRIN ENTERIC COATED 81 MG TABLET.DR. PO SCH (08:00)
[2019-09-23] MEDS ORDERED: POTASSIUM CHLORIDE 20 MEQ TABLET.ER. PO SCH (08:00)
[2019-09-23] MEDS: LACTOBACILLUS RHAMNOSUS GG 1 CAPSULE. PO SCH (08:02)
[2019-09-23] MEDS: LINEZOLID 600 MG TABLET PO SCH (08:02)
[2019-09-23] MEDS: AMOXICILLIN/K CLAV 500/125MG TABLET. PO SCH (08:03)
[2019-09-23] MEDS: hydrALAZINE 25 MG TABLET PO SCH (08:03)
[2019-09-23] MEDS: risperiDONE 0.25 MG TABLET. PO SCH (08:03)
[2019-09-23] MEDS: METOPROLOL TART IMMED RELEASE 50 MG TABLET. PO SCH (08:03)
[2019-09-23] MEDS: MAGNESIUM OXIDE 400 MG TABLET PO SCH (08:04)
[2019-09-23] MEDS: NYSTATIN TOPICAL POWDER 15GM BOTTLE. TP SCH (08:16)
[2019-09-23] MEDS ORDERED: HYDR-2761 PO (08:40)
[2019-09-23] MEDS ORDERED: CEFD300C PO (08:40)
--- NOTE | 2019-09-23 08:41 | SNU/HH DC ---
DISCHARGE WITH HOME HEALTH DISCHARGE INFORMATION: Discharge Date: Sep 23, 2019 Final Diagnosis: Problems Medical Problems: (1) Acute renal failure Status: Acute (2) Dehydration Status: Acute Condition on Discharge: Stable CODE STATUS: Code Status: Full HOME HEALTH: Face to Face: I certify this patient is under my care and that I, or a nurse practitioner or physician's business development assistant working with me, had a face to face encounter that meets the physician face to face encounter requirements with this patient on []. RN For Eval/Treatment: Yes Physical Therapy For: Evalulation/Treatment Occupational Therapy For: Evaluation/Treatment Speech Language Pathology For: Evaluation/Treatment FACILITIES SUPERVISOR For: Community Resources Pt Meets Homebound Status: Unsteady balance w/ amb, POST DISCHARGE ORDERS: Activity Instructions for Disc: No restrictions, Activity as tolerated Weight Bearing Status after Di: No restrictions, As tolerated DIET AFTER DISCHARGE: Cardiac Wound/Incision Care: Change dressing CHECKS AFTER DISCHARGE: Checks after discharge: Check blood press - daily, Check your Temp as needed FOLLOW-UP: PCP to follow Home Health: ff up vasc sx 2-3 weeks from dc DC TO SNF LABS: bmp 09/26/19 TREATMENT/EQUIPMENT ORDERS: Adaptive Equipment Issued: None CERTIFICATION STATEMENT: Certification Statement: Certification Statement: Based on the above finding, I certify that this patient is confined to the home and needs intermittent senior care care, physical therapy and/or speech therapy, or continues to need occupational therapy.~ This patient is under my care, and I have initiated the establishment of the plan of care.~ This patient will be followed by myself or a community physician who will periodically review the plan of care. Home Meds Active Scripts Cefdinir (CEFDINIR) 300 Mg Capsule, 1 CAP PO BID for s/p rt toe gangrene amputation, #14 CAP Prov:RAJIV DIAMOND MD 09/23/19 Hydrocodone Bit/Acetaminophen (HYDROCODONE-APAP 5-325 ) 1 Tab Tablet, 1 TAB PO PRN Q4HRS PRN for PAIN for 5 Days, #15 TAB Prov:RAJIV DIAMOND MD 09/23/19 Lactobacillus Rhamnosus Gg (CULTURELLE) 1 Each Cap.sprink, 1 CAP PO BID for supplement for 30 Days, #60 CAP Prov:CARLOS LINDSEY MD 09/21/19 Docusate Sodium (DOK) 100 Mg Capsule, 100 MG PO PRN BID PRN for HARD STOOLS for 30 Days, #60 CAP Prov:CARLOS LINDSEY MD 09/21/19 Risperidone (RISPERIDONE) 0.25 Mg Tablet, 0.5 MG PO BID for dementia, agitation for 10 Days, #40 TAB Prov:CARLOS LINDSEY MD 09/21/19 Olanzapine (ZYPREXA ZYDIS) 5 Mg Tab.rapdis, 5 MG PO PRN BID PRN for agitation for 30 Days, #30 TAB Prov:JEWEL KNOWLES MD 07/11/19 Albuterol Sulfate (Proventil Hfa) 6.7 Gm Hfa.aer.ad, 1 PUFF INH PRN Q6HRS PRN for SHORTNESS OF BREATH, #1 INHALER Prov:SOL CH APRN 03/10/19 Amlodipine Besylate (AMLODIPINE BESYLATE) 10 Mg Tablet, 10 MG PO DAILY for htn MDD 1 for 30 Days, #30 TAB Prov:RAJIV DIAMOND MD 10/22/18 Hydralazine Hcl (HYDRALAZINE HCL) 25 Mg Tablet, 25 MG PO TID for htn MDD 1 for 30 Days, #90 TAB Prov:RAJIV DIAMOND MD 10/22/18 Aspirin (ASPIRIN EC) 81 Mg Tablet.dr, 81 MG PO DAILYWBKFT for 30 Days, #30 TAB.SR Prov:REJI ENG MD 01/03/18 Ipratropium/Albuterol Sulfate (DUONEB 0.5-3(2.5) MG/3 ML) 3 Ml Ampul.neb, 3 ML NEB RTQID for 30 Days, #120 EACH Prov:REJI ENG MD 01/03/18 Reported Medications Potassium Chloride (Klor-Con 10) 10 Meq Tablet.er, 20 MEQ PO DAILY PRN for supplement, TAB.SR 09/18/19 Furosemide (LASIX) 20 Mg Tablet, 1 TAB PO DAILY for chf for 30 Days, #30 TAB 0 Refills 09/18/19 Metoprolol Tartrate (Lopressor) 100 Mg Tablet, 50 MG PO BID for HTN, TAB 07/10/19 Nystatin (NYSTATIN) 15 Gm Powder, 1 UMANG TP BID for excoriation, #1 BOTTLE 10/17/18 Magnesium Hydroxide (MILK OF MAGNESIA) 400 Mg/5 Ml Oral.susp, 400 MG PO PRN DAILY PRN for INDIGESTION, MISC 10/17/18 Magnesium Oxide (MAG-OXIDE) 400 Mg Tablet, 1 TAB PO BID for mag replacement, #60 TAB 5 Refills 10/17/18 Polyethylene Glycol 3350 (MIRALAX) 17 Gm Powd.pack, 1 PACKET PO PRN DAILY PRN for CONSTIPATION, #30 PACKET 3 Refills 03/09/16 Acetaminophen (TYLENOL) 325 Mg Tablet, 1 TAB PO PRN Q6HRS PRN for FEVER, #30 TAB 03/09/16 Famotidine (FAMOTIDINE) 20 Mg Tablet, 20 MG PO HS, TAB 03/05/16 Discontinued Reported Medications Losartan Potassium (LOSARTAN POTASSIUM) 100 Mg Tablet, 100 MG PO DAILY for HYPERTENSION, TAB 09/18/19 Discontinued Scripts Linezolid (ZYVOX) 600 Mg Tablet, 600 MG PO BID for infection for 10 Days, #20 TAB Prov:CARLOS LINDSEY MD 09/21/19 Amoxicillin/Potassium Clav (AMOX TR-K CLV 875-125 MG TAB) 1 Each Tablet, 1 TAB PO BID for infection for 10 Days, #20 TAB Prov:CARLOS LINDSEY MD 09/21/19 Prednisone (PREDNISONE ) 10 Mg Tablet, 10 MG PO DAILY for COPD for 30 Days, #30 TAB Prov:JEWEL KNOWLES MD 07/08/19 RAJIV DIAMOND MD Sep 23, 2019 08:41
[2019-09-23] MEDS ORDERED: predniSONE 10 MG TABLET PO SCH (09:00)
[2019-09-23] MEDS ORDERED: amLODIPine BESYLATE 10 MG TABLET PO SCH (09:00)
[2019-09-23] MEDS ORDERED: FUROSEMIDE 20 MG TABLET PO SCH (09:00)
--- NOTE | 2019-09-23 09:18 | NUR ---
IP: Pt has a hx of + mrsa screen on 10/15/18 with one documented negative on 09/18/19. Pt to remain in contact precautions until a second screen is obtained and verified after09/25/19.
[2019-09-23 11:00] VITALS: BP 153/69
--- NOTE | 2019-09-23 11:18 | SNU/HH DC ---
DISCHARGE ORDERS DISCHARGE INFORMATION: DISCHARGE DATE: Sep 23, 2019 FINAL DIAGNOSIS Problems Medical Problems: (1) Acute renal failure Status: Acute (2) Dehydration Status: Acute CONDITION ON DISCHARGE: Stable CODE STATUS: Code Status: Full SHELTER: SNF STAY <30 DAYS: Yes HOSPICE: HOSPICE: No HOSPICE EVAL & TREAT: No LTAC: ADMIT TO LTAC: No POST DISCHARGE ORDERS: ACTIVITY ORDERS: No restrictions, Activity as tolerated WEIGHT BEARING STATUS: No restrictions, As tolerated DIET AFTER DISCHARGE: Cardiac WOUND/INCISION CARE: Change dressing CHECKS AFTER DISCHARGE: CHECKS AFTER DISCHARGE: Check blood press - daily, Check your Temp as needed FOLLOW-UP: LAB ORDERS FOR FOLLOW-UP: bmp 09/26/19 TREATMENT/EQUIPMENT ORDERS: ADAPTIVE EQUIPMENT NEEDED: None Physical Therapy For: Evalulation/Treatment Occupational Therapy For: Evaluation/Treatment Speech Language Pathology For: Evaluation/Treatment DISCHARGE MEDICATIONS: Home Meds Active Scripts Cefdinir (CEFDINIR) 300 Mg Capsule, 1 CAP PO BID for s/p rt toe gangrene amputation, #14 CAP Prov:RAJIV DIAMOND MD 09/23/19 Hydrocodone Bit/Acetaminophen (HYDROCODONE-APAP 5-325 ) 1 Tab Tablet, 1 TAB PO PRN Q4HRS PRN for PAIN for 5 Days, #15 TAB Prov:RAJIV DIAMOND MD 09/23/19 Lactobacillus Rhamnosus Gg (CULTURELLE) 1 Each Cap.sprink, 1 CAP PO BID for supplement for 30 Days, #60 CAP Prov:CARLOS LINDSEY MD 09/21/19 Docusate Sodium (DOK) 100 Mg Capsule, 100 MG PO PRN BID PRN for HARD STOOLS for 30 Days, #60 CAP Prov:CARLOS LINDSEY MD 09/21/19 Risperidone (RISPERIDONE) 0.25 Mg Tablet, 0.5 MG PO BID for dementia, agitation for 10 Days, #40 TAB Prov:CARLOS LINDSEY MD 09/21/19 Olanzapine (ZYPREXA ZYDIS) 5 Mg Tab.rapdis, 5 MG PO PRN BID PRN for agitation for 30 Days, #30 TAB Prov:JEWEL KNOWLES MD 07/11/19 Albuterol Sulfate (Proventil Hfa) 6.7 Gm Hfa.aer.ad, 1 PUFF INH PRN Q6HRS PRN for SHORTNESS OF BREATH, #1 INHALER Prov:SOL CH PIPE INSULATOR 03/10/19 Amlodipine Besylate (AMLODIPINE BESYLATE) 10 Mg Tablet, 10 MG PO DAILY for htn MDD 1 for 30 Days, #30 TAB Prov:RAJIV DIAMOND MD 10/22/18 Hydralazine Hcl (HYDRALAZINE HCL) 25 Mg Tablet, 25 MG PO TID for htn MDD 1 for 30 Days, #90 TAB Prov:RAJIV DIAMOND MD 10/22/18 Aspirin (ASPIRIN EC) 81 Mg Tablet.dr, 81 MG PO DAILYWBKFT for 30 Days, #30 TAB.SR Prov:REJI ENG MD 01/03/18 Ipratropium/Albuterol Sulfate (DUONEB 0.5-3(2.5) MG/3 ML) 3 Ml Ampul.neb, 3 ML NEB RTQID for 30 Days, #120 EACH Prov:REJI ENG MD 01/03/18 Reported Medications Potassium Chloride (Klor-Con 10) 10 Meq Tablet.er, 20 MEQ PO DAILY PRN for supplement, TAB.SR 09/18/19 Furosemide (LASIX) 20 Mg Tablet, 1 TAB PO DAILY for chf for 30 Days, #30 TAB 0 Refills 09/18/19 Metoprolol Tartrate (Lopressor) 100 Mg Tablet, 50 MG PO BID for HTN, TAB 07/10/19 Nystatin (NYSTATIN) 15 Gm Powder, 1 UMANG TP BID for excoriation, #1 BOTTLE 10/17/18 Magnesium Hydroxide (MILK OF MAGNESIA) 400 Mg/5 Ml Oral.susp, 400 MG PO PRN DAILY PRN for INDIGESTION, MISC 10/17/18 Magnesium Oxide (MAG-OXIDE) 400 Mg Tablet, 1 TAB PO BID for mag replacement, #60 TAB 5 Refills 10/17/18 Polyethylene Glycol 3350 (MIRALAX) 17 Gm Powd.pack, 1 PACKET PO PRN DAILY PRN for CONSTIPATION, #30 PACKET 3 Refills 03/09/16 Acetaminophen (TYLENOL) 325 Mg Tablet, 1 TAB PO PRN Q6HRS PRN for FEVER, #30 TAB 03/09/16 Famotidine (FAMOTIDINE) 20 Mg Tablet, 20 MG PO HS, TAB 03/05/16 Discontinued Reported Medications Losartan Potassium (LOSARTAN POTASSIUM) 100 Mg Tablet, 100 MG PO DAILY for HYPERTENSION, TAB 09/18/19 Discontinued Scripts Linezolid (ZYVOX) 600 Mg Tablet, 600 MG PO BID for infection for 10 Days, #20 TAB Prov:CARLOS LINDSEY MD 09/21/19 Amoxicillin/Potassium Clav (AMOX TR-K CLV 875-125 MG TAB) 1 Each Tablet, 1 TAB PO BID for infection for 10 Days, #20 TAB Prov:CARLOS LINDSEY MD 09/21/19 Prednisone (PREDNISONE ) 10 Mg Tablet, 10 MG PO DAILY for COPD for 30 Days, #30 TAB Prov:JEWEL KNOWLES MD 07/08/19 RAJIV DIAMOND MD Sep 23, 2019 11:18
--- NOTE | 2019-09-23 11:21 | PDOC3 ---
Discharge Summary Visit Information Date of Admission: Sep 22, 2019 Date of Discharge: Sep 23, 2019 Admitting Diagnosis Comment: s/po rt second toe amputation Final Diagnosis Problems Medical Problems: (1) Acute renal failure Status: Acute (2) Dehydration Status: Acute Brief Hospital Course Allergies Allergies Coded Allergies Type Severity Reaction Last Updated Verified Penicillins Allergy Intermediate Itching 09/21/19 Yes I S O L A T I O N *CONTACT* Allergy Unknown 10/16/18 Yes Vital Signs Vital Signs Date Time Temp Pulse Resp B/P (MAP) Pulse Ox O2 Delivery O2 Flow Rate FiO2 09/23/19 08:13 Room Air 09/23/19 08:04 70 140/64 09/23/19 07:33 98 09/23/19 07:00 97.3 18 97.3 Lab Results Laboratory Tests Test 09/22/19 01:00 09/22/19 01:30 09/23/19 05:20 White Blood Count 11.6 x10^3/uL (4.0-11.0) Red Blood Count 5.13 x10^6/uL (4.30-5.70) Hemoglobin 16.7 g/dL (13.0-17.5) Hematocrit 50.9 % (39.0-53.0) Mean Corpuscular Volume 99 fL (79-100) Mean Corpuscular Hemoglobin 33 pg (25-35) Mean Corpuscular Hemoglobin Concent 33 g/dL (31-37) Red Cell Distribution Width 17.1 % (11.5-14.5) Platelet Count 143 x10^3/uL (140-400) Neutrophils (%) (Auto) 83 % (31-73) Lymphocytes (%) (Auto) 5 % (24-48) Monocytes (%) (Auto) 10 % (0-9) Eosinophils (%) (Auto) 3 % (0-3) Basophils (%) (Auto) 0 % (0-3) Neutrophils # (Auto) 9.6 x10^3/uL (1.8-7.7) Lymphocytes # (Auto) 0.6 x10^3/uL (1.0-4.8) Monocytes # (Auto) 1.1 x10^3/uL (0.0-1.1) Eosinophils # (Auto) 0.3 x10^3/uL (0.0-0.7) Basophils # (Auto) 0.0 x10^3/uL (0.0-0.2) Segmented Neutrophils % 87 % (35-66) Lymphocytes % 6 % (24-48) Monocytes % 6 % (0-10) Eosinophils % 1 % (0-5) Toxic Granulation Slight Platelet Estimate Adequate (ADEQUATE) Sodium Level 143 mmol/L (136-145) 148 mmol/L (136-145) Potassium Level 3.7 mmol/L (3.5-5.1) 4.2 mmol/L (3.5-5.1) Chloride Level 105 mmol/L (98-107) 113 mmol/L (98-107) Carbon Dioxide Level 27 mmol/L (21-32) 27 mmol/L (21-32) Anion Gap 11 (6-14) 8 (6-14) Blood Urea Nitrogen 41 mg/dL (8-26) 23 mg/dL (8-26) Creatinine 2.6 mg/dL (0.7-1.3) 1.4 mg/dL (0.7-1.3) Estimated GFR (Cockcroft-Gault) 28.7 58.6 BUN/Creatinine Ratio 16 (6-20) Glucose Level 124 mg/dL (70-99) 73 mg/dL (70-99) Calcium Level 8.7 mg/dL (8.5-10.1) 8.0 mg/dL (8.5-10.1) Magnesium Level 2.3 mg/dL (1.8-2.4) Total Bilirubin 0.5 mg/dL (0.2-1.0) Aspartate Amino Transf (AST/SGOT) 14 U/L (15-37) Alanine Aminotransferase (ALT/SGPT) 10 U/L (16-63) Alkaline Phosphatase 87 U/L (46-116) Total Protein 6.6 g/dL (6.4-8.2) Albumin 2.4 g/dL (3.4-5.0) 2.2 g/dL (3.4-5.0) Albumin/Globulin Ratio 0.6 (1.0-1.7) Urine Collection Type Unknown Urine Color Janelle Urine Clarity Clear Urine pH 6.0 Urine Specific [place] 1.020 Urine Protein 30 mg/dL (NEG-TRACE) Urine Glucose (UA) Negative mg/dL (NEG) Urine Ketones (Stick) Negative mg/dL (NEG) Urine Blood Negative (NEG) Urine Nitrite Negative (NEG) Urine Bilirubin Small (NEG) Urine Urobilinogen Dipstick 0.2 mg/dL (0.2 mg/dL) Urine Leukocyte Esterase Negative (NEG) Urine RBC Occ /HPF (0-2) Urine WBC Occ /HPF (0-4) Urine Squamous Epithelial Cells Few /LPF Urine Bacteria 0 /HPF (0-FEW) Urine Hyaline Casts Few /HPF Urine Mucus Slight /LPF Phosphorus Level 3.5 mg/dL (2.6-4.7) Laboratory Tests Test 09/23/19 05:20 Sodium Level 148 mmol/L (136-145) Potassium Level 4.2 mmol/L (3.5-5.1) Chloride Level 113 mmol/L (98-107) Carbon Dioxide Level 27 mmol/L (21-32) Anion Gap 8 (6-14) Blood Urea Nitrogen 23 mg/dL (8-26) Creatinine 1.4 mg/dL (0.7-1.3) Estimated GFR (Cockcroft-Gault) 58.6 Glucose Level 73 mg/dL (70-99) Calcium Level 8.0 mg/dL (8.5-10.1) Phosphorus Level 3.5 mg/dL (2.6-4.7) Albumin 2.2 g/dL (3.4-5.0) Brief Hospital Course Mr. Demarco is a 84 old SNU resident, came in for gangrenous RT 2nd toe and had amputation, SOme confusion post op, needing sitter,NOw stable as can be and cleared from VASC sx to dc and ff up 2-3 weeks, FULL CODE. I did dc MAR, dc sitter today Dw AMMY perrin Proc; AMputation second rt gangrenous toe dispO; back to snu Discharge Information Condition at Discharge: Improved, Stable Disposition/Orders: Other (snu) Scheduled Amlodipine Besylate (Amlodipine Besylate) 10 Mg Tablet, 10 MG PO DAILY for htn MDD 1 for 30 Days, #30 Prescribed by: RAJIV DIAMOND on 10/22/18 0804 Last Action: Continued on 09/22/19 1524 by CARLOS LINDSEY MD Aspirin (Aspirin Ec) 81 Mg Tablet., 81 MG PO DAILYWBKFT for 30 Days, #30 Prescribed by: REJI ENG on 01/03/18 1207 Last Action: Continued on 09/22/19 152 by CARLOS LINDSEY MD Cefdinir (Cefdinir) 300 Mg Capsule, 1 CAP PO BID for s/p rt toe gangrene amputation, #14 Prescribed by: RAJIV DIAMOND on 09/23/19 0840 Famotidine (Famotidine) 20 Mg Tablet, 20 MG PO HS, (Reported) Entered as Reported by: JARON HELTON on 03/05/16 0901 Last Action: Continued on 09/22/19 152 by CARLOS LINDSEY MD Furosemide (Lasix) 20 Mg Tablet, 1 TAB PO DAILY for chf for 30 Days, #30 Ref 0 (Reported) Entered as Reported by: JENS ROMERO on 09/18/19 1818 Last Action: Continued on 09/22/19 152 by CARLOS LINDSEY MD Hydralazine Hcl (Hydralazine Hcl) 25 Mg Tablet, 25 MG PO TID for htn MDD 1 for 30 Days, #90 Prescribed by: RAJIV DIAMOND on 10/22/18 0804 Last Action: Continued on 09/22/19 152 by CARLOS LINDSEY MD Ipratropium/Albuterol Sulfate (Duoneb 0.5-3(2.5) Mg/3 Ml) 3 Ml Ampul.neb, 3 ML NEB RTQID for 30 Days, #120 Prescribed by: REJI ENG on 01/03/18 1207 Last Action: Continued on 09/22/19 152 by CARLOS LINDSEY MD Lactobacillus Rhamnosus Gg (Culturelle) 1 Each Cap.sprink, 1 CAP PO BID for supplement for 30 Days, #60 Prescribed by: CARLOS LINDSEY MD on 09/21/19 1308 Last Action: Continued on 09/22/191523 by CARLOS LINDSEY MD Magnesium Oxide (Mag-Oxide) 400 Mg Tablet, 1 TAB PO BID for mag replacement, #60 Ref 5 (Reported) Entered as Reported by: RANJIT BILLY on 10/17/18 1352 Last Action: Continued on 09/22/19 152 by CARLOS LINDSEY MD Metoprolol Tartrate (Lopressor) 100 Mg Tablet, 50 MG PO BID for HTN, (Reported) Entered as Reported by: RONNA CHEN on 07/10/197 Last Action: Converted on 09/22/191523 by CARLOS LINDSEY MD Nystatin (Nystatin) 15 Gm Powder, 1 UMANG TP BID for excoriation, #1 (Reported) Entered as Reported by: RANJIT BILLY on 10/17/18 135 Last Action: Continued on 09/22/191523 by CARLOS LINDSEY MD Risperidone (Risperidone) 0.25 Mg Tablet, 0.5 MG PO BID for dementia, agitation for 10 Days, #40 Prescribed by: CARLOS LINDSEY MD on 09/21/19 130 Last Action: Continued on 09/22/191523 by CARLOS LINDSEY MD Scheduled PRN Acetaminophen (Tylenol) 325 Mg Tablet, 1 TAB PO PRN Q6HRS PRN for FEVER, #30 (Reported) Entered as Reported by: GIRISH CROWDER on 03/09/161531 Last Action: Continued on 09/22/191523 by CARLOS LINDSEY MD Albuterol Sulfate (Proventil Hfa) 6.7 Gm Hfa.aer.ad, 1 PUFF INH PRN Q6HRS PRN for SHORTNESS OF BREATH, #1 Prescribed by: Cait Benjamin APRN on 03/10/191916 Last Action: Converted on 09/22/191523 by CARLOS LINDSEY MD Docusate Sodium (Dok) 100 Mg Capsule, 100 MG PO PRN BID PRN for HARD STOOLS for 30 Days, #60 Prescribed by: CARLOS LINDSEY MD on 09/21/19 130 Last Action: Continued on 09/22/191523 by CARLOS LINDSEY MD Hydrocodone Bit/Acetaminophen (Hydrocodone-Apap 5-325 ) 1 Tab Tablet, 1 TAB PO PRN Q4HRS PRN for PAIN for 5 Days, #15 Prescribed by: RAJIV DIAMOND on 09/23/19 0840 Magnesium Hydroxide (Milk Of Magnesia) 400 Mg/5 Ml Oral.susp, 400 MG PO PRN DAILY PRN for INDIGESTION, (Reported) Entered as Reported by: RANJIT BILLY on 10/17/181351 Last Action: Continued on 09/22/191523 by CARLOS LINDSEY MD Olanzapine (Zyprexa Zydis) 5 Mg Tab.rapdis, 5 MG PO PRN BID PRN for agitation for 30 Days, #30 Prescribed by: JEWEL KNOWLES MD on 07/11/19 1305 Last Action: Continued on 09/22/19 152 by CARLOS LINDSEY MD Polyethylene Glycol 3350 (Miralax) 17 Gm Powd.pack, 1 PACKET PO PRN DAILY PRN for CONSTIPATION, #30 Ref 3 (Reported) Entered as Reported by: GIRISH CROWDER on 03/09/16 1533 Last Action: Continued on 09/22/19 152 by CARLOS LINDSEY MD Potassium Chloride (Klor-Con 10) 10 Meq Tablet.er, 20 MEQ PO DAILY PRN for supplement, (Reported) Entered as Reported by: JENS ROMERO on 09/18/19 1821 Last Action: Converted on 09/22/191523 by CARLOS LINDSEY MD Discontinued Medications Amoxicillin/Potassium Clav (Amox Tr-K Clv 875-125 Mg Tab) 1 Each Tablet, 1 TAB PO BID for infection for 10 Days, #20 Prescribed by: CARLOS LINDSEY MD on 09/21/19 1308 Last Action: Continued on 09/22/19 152 by CARLOS LINDSEY MD Linezolid (Zyvox) 600 Mg Tablet, 600 MG PO BID for infection for 10 Days, #20 Prescribed by: CARLOS LINDSEY MD on 09/21/19 1308 Last Action: Continued on 09/22/19 152 by CARLOS LINDSEY MD Losartan Potassium (Losartan Potassium) 100 Mg Tablet, 100 MG PO DAILY for HYPERTENSION, (Reported) Entered as Reported by: JENS ROMERO on 09/18/19 181 Prednisone (Prednisone ) 10 Mg Tablet, 10 MG PO DAILY for COPD for 30 Days, #30 Prescribed by: JEWEL KNOWLES MD on 07/08/19 1535 Last Action: Continued on 09/22/19 152 by MD LOBO SMITH CHERRIE Y MD Sep 23, 2019 11:21
--- NOTE | 2019-09-23 11:32 | NUR ---
SW following. Discussed with RN, pt is from [facility] [place]. Discharge paperwork faxed. Transportation set up for 1430. RN notified.
--- NOTE | 2019-09-23 14:36 | NUR ---
Pt. discharged to [facility] via per transportation. Pt. pleasant and cooperative.
== END 2019-09-23 14:35 ==
LOC: ER 00:21 → 4 NORTH 02:36
PROVIDERS: ADMIT Internal Medicine; ATTEND Internal Medicine
DX: N17.9 Acute kidney failure, unspecified (principal); E86.0 Dehydration; D64.9 Anemia, unspecified; I25.10 Atherosclerotic heart disease of native coronary artery without angina pectoris; J44.9 Chronic obstructive pulmonary disease, unspecified; N40.0 Benign prostatic hyperplasia without lower urinary tract symptoms; R41.82 Altered mental status, unspecified; M19.90 Unspecified osteoarthritis, unspecified site; N18.9 Chronic kidney disease, unspecified; E66.9 Obesity, unspecified; F29 Unspecified psychosis not due to a substance or known physiological condition; Z90.49 Acquired absence of other specified parts of digestive tract; F32.9 Major depressive disorder, single episode, unspecified; Z95.0 Presence of cardiac pacemaker; Z68.37 Body mass index [BMI] 37.0-37.9, adult
CPT/HCPCS: 36415; 80053; 80069; 81001; 83735; 85007; 85025; 94640; 94760; 96360; 96361; 96372; G0378; J3486; J7030; J7512; J7620; G0379

== ENCOUNTER 2019-10-11 19:19 | Inpatient (IN) | payer MEDICARE, MEDICAID ==
[~2019-10-11] VITALS: Ht 165.1 cm; Wt 105.0 kg
[~2019-10-11 19:19] MED LIST changes: +CEFD300C PO
--- NOTE | 2019-10-11 19:36 | PHYS DOC ---
Past Medical History Past Medical History: A-Fib, Anemia, CAD, COPD, GERD, High Cholesterol, Heart Disease, CO Additional Past Medical Histor: H/A, OBESITY, [employer], BPH,AMS,LYMPHEDEMA,MDD,PSYCHOSIS,NSTEMI,DYSPHAGIA Past Surgical History: Appendectomy, Pacemaker, Other Additional Past Surgical Histo: Hernia Smoking Status: Former Smoker Alcohol Use: None Drug Use: None Adult General Chief Complaint Chief Complaint: MECHANICAL FALL HPI HPI 84-year-old male with underlying history of COPD, hypertension presents to the emergency department after fall. Patient complains of right wrist and arm pain. There is bruising appreciated however these appear to be healing multiple stages. Unsure when the fall took place. Patient is more altered than usual according to EMS as well as nursing. He does have expiratory wheeze appreciated. He is able to answer some questions appropriately however keeps his eyes closed. Patient denies any chest pain, abdominal pain, + SOB on exam. He does have chronic lower extremity wounds appreciated. Nothing makes his symptoms worse, nothing makes his symptoms better on exam. Review of Systems Review of Systems Constitutional: Denies fever or chills [] Respiratory: + shortness of breath [] Cardiovascular: No additional information not addressed in HPI [] GI: Denies abdominal pain, nausea, vomiting, bloody stools or diarrhea [] Musculoskeletal: pain to right wrist/forearm Neurologic: Denies headache, focal weakness or sensory changes [] All other systems were reviewed and found to be within normal limits, except as documented in this note. Current Medications Current Medications Current Medications Medications (Trade) Dose Ordered Sig/Katrina Start Time Stop Time Status Last Admin Dose Admin Albuterol/ Ipratropium (Duoneb) 3 ml 1X ONCE 10/11/19 20:00 10/11/19 20:01 DC 10/11/19 20:07 3 ML Calcium Gluconate (Calcium Gluconate) 1,000 mg 1X ONCE 10/11/19 23:00 10/11/19 23:01 Methylprednisolone Sodium Succinate (SOLU-Medrol 125MG VIAL) 125 mg 1X ONCE 10/11/19 20:30 10/11/19 20:31 DC 10/11/19 20:58 125 MG Potassium Chloride/Water 100 ml @ 100 mls/hr Q1H 10/11/19 23:00 10/12/19 00:59 Sodium Chloride 1,000 ml @ 1,000 mls/hr Q1H 10/11/19 20:00 10/11/19 20:59 DC 10/11/19 20:54 1,000 MLS/HR Allergies Allergies Allergies Coded Allergies Type Severity Reaction Last Updated Verified Penicillins Allergy Intermediate Itching 09/21/19 Yes I S O L A T I O N *CONTACT* Allergy Unknown 10/16/18 Yes Physical Exam Physical Exam Constitutional: Well developed, well nourished, mild respiratory distress, non- toxic appearance. [] HENT: Normocephalic, atraumatic, bilateral external ears normal, oropharynx moist, no oral exudates, nose normal. [] Eyes: PERRLA, EOMI, conjunctiva normal, no discharge. [] Neck: Normal range of motion, no tenderness, supple, no stridor. [] Cardiovascular:Heart rate regular rhythm, no murmur [] Lungs & Thorax: + exp wheeze appreciated bilaterally Abdomen: Bowel sounds normal, soft, no tenderness, no masses, no pulsatile masses. [] Skin: chronic lower ext venous stasis changes appreciated Extremities: No tenderness, no edema. [] Neurologic: Alert and oriented X 2, no focal deficits noted. [] Psychologic: Affect normal, judgement normal, mood normal. [] Current Patient Data Vital Signs Vital Signs Date Time Temp Pulse Resp B/P (MAP) Pulse Ox O2 Delivery O2 Flow Rate FiO2 10/11/19 21:15 69 20 135/80 (98) 97 Room Air 10/11/19 19:24 97.6 97.6 Lab Values Laboratory Tests Test 10/11/19 19:28 10/11/19 20:20 10/11/19 21:45 Glucose (Fingerstick) 111 mg/dL (70-99) H White Blood Count 8.7 x10^3/uL (4.0-11.0) Red Blood Count 4.42 x10^6/uL (4.30-5.70) Hemoglobin 14.3 g/dL (13.0-17.5) Hematocrit 44.1 % (39.0-53.0) Mean Corpuscular Volume 100 fL (79-100) Mean Corpuscular Hemoglobin 32 pg (25-35) Mean Corpuscular Hemoglobin Concent 33 g/dL (31-37) Red Cell Distribution Width 16.2 % (11.5-14.5) H Platelet Count 197 x10^3/uL (140-400) Neutrophils (%) (Auto) 63 % (31-73) Lymphocytes (%) (Auto) 13 % (24-48) L Monocytes (%) (Auto) 15 % (0-9) H Eosinophils (%) (Auto) 9 % (0-3) H Basophils (%) (Auto) 1 % (0-3) Neutrophils # (Auto) 5.4 x10^3/uL (1.8-7.7) Lymphocytes # (Auto) 1.1 x10^3/uL (1.0-4.8) Monocytes # (Auto) 1.3 x10^3/uL (0.0-1.1) H Eosinophils # (Auto) 0.8 x10^3/uL (0.0-0.7) H Basophils # (Auto) 0.1 x10^3/uL (0.0-0.2) Lactic Acid Level 3.0 mmol/L (0.4-2.0) H Sodium Level 148 mmol/L (136-145) H Potassium Level 2.6 mmol/L (3.5-5.1) *L Chloride Level 117 mmol/L (98-107) H Carbon Dioxide Level 22 mmol/L (21-32) Anion Gap 9 (6-14) Blood Urea Nitrogen 16 mg/dL (8-26) Creatinine 1.1 mg/dL (0.7-1.3) Estimated GFR (Cockcroft-Gault) 77.4 BUN/Creatinine Ratio 15 (6-20) Glucose Level 87 mg/dL (70-99) Calcium Level 5.5 mg/dL (8.5-10.1) *L Total Bilirubin 0.1 mg/dL (0.2-1.0) L Aspartate Amino Transferase (AST) 10 U/L (15-37) L Alanine Aminotransferase (ALT) 8 U/L (16-63) L Alkaline Phosphatase 75 U/L (46-116) Total Protein 4.2 g/dL (6.4-8.2) L Albumin 1.5 g/dL (3.4-5.0) L Albumin/Globulin Ratio 0.6 (1.0-1.7) L Laboratory Tests 2/14/20 20:20 Laboratory Tests 10/11/19 21:45 EKG EKG [] Radiology/Procedures Radiology/Procedures [facility] [address] [place] [address] IMAGING REPORT Signed PATIENT: DARYL WEBSTER ACCOUNT: [id number] : 1935 LOCATION: ER AGE: 84 SEX: M EXAM STATUS: PRE ER ORD. PHYSICIAN: ROSALIE GRECO MD REASON: fall, wrist pain PROCEDURE: WRIST 2V RIGHT Right wrist 2 views. HISTORY: Fall, wrist pain 2 views were taken of the right wrist. There is arthritis at the wrist. There is arthritis at the metacarpal phalangeal joints at the second and third fingers. There is no acute fracture. IMPRESSION: 1. Arthritis right hand and wrist. 2. No acute fracture. Electronically signed by: Estuardo Moralez MD (10/11/2019 8:11 PM) [id number] DICTATED and SIGNED BY: ESTUARDO MORALEZ MD DATE: 10/11/192010 [] : 1935 LOCATION: ER AGE: 84 SEX: M EXAM STATUS: PRE ER ORD. PHYSICIAN: ROSALIE GRECO MD REASON: fall, decreased LOC PROCEDURE: CT HEAD WO CONTRAST STUDY: CT head without contrast INDICATION: Fall. Decreased level of consciousness. COMPARISON: 10/14/2018 TECHNIQUE: Axial CT imaging through the head without the use of intravenous contrast. Sagittal and coronal reformats were obtained. One or more of the following individualized dose reduction techniques were utilized for this examination: 1. Automated exposure control 2. Adjustment of the mA and/or kV according to patient size 3. Use of iterative reconstruction technique. FINDINGS: Study degradation on account of motion artifact. Taking into consideration motion, no acute intracranial hemorrhage or new site of pierre-white matter differentiation loss. Redemonstrated cortical/subcortical low-attenuation overlying the right lateral ventricle occipital horn. No mass effect or midline shift. Parenchymal volume loss with unchanged ventricular prominence. Confluent areas of white matter low-attenuation are most compatible with the sequela of chronic microvascular ischemic change. Intracranial atherosclerotic calcifications. No newly seen calvarial abnormality. IMPRESSION: 1. Taking into consideration motion degradation, no acute intracranial abnormality is seen by CT. 2. Chronic findings to include a region of cortical/subcortical low-attenuation overlying the right lateral ventricle occipital horn are not significantly different from the prior. Electronically signed by: DEXTER COBURN MD (10/11/2019 8:10 PM) [id number] DICTATED and SIGNED BY: DEXTER COBURN MD DATE: 10/11/192009 Course & Med Decision Making Course & Med Decision Making Pertinent Labs and Imaging studies reviewed. (See chart for details) []84-year-old male with underlying history of COPD, hypertension presents to the emergency department after fall. Patient complains of right wrist and arm pain. There is bruising appreciated however these appear to be healing multiple stages. Unsure when the fall took place. Patient is more altered than usual according to EMS as well as nursing. He does have expiratory wheeze appreciated. He is able to answer some questions appropriately however keeps his eyes cl osed. Patient denies any chest pain, shortness breath, nausea, vomiting, abdominal pain. He does have chronic lower extremity wounds appreciated. Nothing makes his symptoms worse, nothing makes his symptoms better on exam. ABG reviewed Solumedrol 125mg IV x 1, Duoneb CXR without acute process, CT negative for acute process Labs reviewed with evidence of hypocalcemia, hypokalemia Replaced in ER, will admit for observation Dragon Disclaimer Dragon Disclaimer This electronic medical record was generated, in whole or in part, using a voice recognition dictation system. Departure Departure Impression: Primary Impression: AMS (altered mental status) Additional Impressions: Hypokalemia Hypocalcemia COPD (chronic obstructive pulmonary disease) Disposition: ADMITTED INPATIENT Admitting Physician: ALFREDO Condition: IMPROVED Referrals: SILAS PINTO MD (PCP) Critical Care Time Critical care time was 35 minutes exclusive of procedures. Problem Qualifiers Primary Impression: AMS (altered mental status) Altered mental status type: unspecified Qualified Codes: R41.82 - Altered mental status, unspecified Additional Impressions: COPD (chronic obstructive pulmonary disease) COPD type: unspecified COPD Qualified Codes: J44.9 - Chronic obstructive pulmonary disease, unspecified ROSALIE GRECO MD Oct 11, 2019 19:36
[2019-10-11] MEDS ORDERED: IV NORMAL SALINE 1000ML BAG 1,000 ML IV SCH (20:00)
[2019-10-11] MEDS ORDERED: IPRATRPIUM/ALBUTEROL 0.5/2.5MG 3 ML NEBU. NEB ONE (20:00)
--- NOTE | 2019-10-11 20:13 | RAD ---
STUDY: CT head without contrast INDICATION: Fall. Decreased level of consciousness. COMPARISON: 10/14/2018 TECHNIQUE: Axial CT imaging through the head without the use of intravenous contrast. Sagittal and coronal reformats were obtained. One or more of the following individualized dose reduction techniques were utilized for this examination: 1. Automated exposure control 2. Adjustment of the mA and/or kV according to patient size 3. Use of iterative reconstruction technique. FINDINGS: Study degradation on account of motion artifact. Taking into consideration motion, no acute intracranial hemorrhage or new site of pierre-white matter differentiation loss. Redemonstrated cortical/subcortical low-attenuation overlying the right lateral ventricle occipital horn. No mass effect or midline shift. Parenchymal volume loss with unchanged ventricular prominence. Confluent areas of white matter low-attenuation are most compatible with the sequela of chronic microvascular ischemic change. Intracranial atherosclerotic calcifications. No newly seen calvarial abnormality. IMPRESSION: 1. Taking into consideration motion degradation, no acute intracranial abnormality is seen by CT. 2. Chronic findings to include a region of cortical/subcortical low-attenuation overlying the right lateral ventricle occipital horn are not significantly different from the prior. Electronically signed by: DEXTER COBURN MD (10/11/2019 8:10 PM) [id number]
--- NOTE | 2019-10-11 20:14 | RAD ---
Right wrist 2 views. HISTORY: Fall, wrist pain 2 views were taken of the right wrist. There is arthritis at the wrist. There is arthritis at the metacarpal phalangeal joints at the second and third fingers. There is no acute fracture. IMPRESSION: 1. Arthritis right hand and wrist. 2. No acute fracture. Electronically signed by: Estuardo Moralez MD (10/11/2019 8:11 PM) [id number]
[2019-10-11] MEDS ORDERED: methylPREDNISolone SOD SUCC PF 125 MG/2 ML VIAL. IV ONE (20:30)
[2019-10-11 20:38] LABS: BASO # 0.1 x10^3/uL (0.0-0.2); BASO % 1 % (0-3); EOS # 0.8 x10^3/uL (0.0-0.7); EOS % 9 % (0-3); HEMATOCRIT 44.1 % (39.0-53.0); HEMOGLOBIN 14.3 g/dL (13.0-17.5); LYMPH # 1.1 x10^3/uL (1.0-4.8); LYMPH % 13 % (24-48); MEAN CORPUSCULAR HEMOGLOBIN 32 pg (25-35); MEAN CORPUSCULAR HGB CONC 33 g/dL (31-37); MEAN CORPUSCULAR VOLUME 100 fL (79-100); MONO # 1.3 x10^3/uL (0.0-1.1); MONO % 15 % (0-9); NEUT # 5.4 x10^3/uL (1.8-7.7); NEUT % 63 % (31-73); PLATELET COUNT 197 x10^3/uL (140-400); RED BLOOD COUNT 4.42 x10^6/uL (4.30-5.70); RED CELL DISTRIBUTION WIDTH 16.2 % (11.5-14.5); WHITE BLOOD COUNT 8.7 x10^3/uL (4.0-11.0)
[2019-10-11 22:08] LABS: ALBUMIN 1.5 g/dL (3.4-5.0); ALBUMIN/GLOBULIN RATIO 0.6 (1.0-1.7); CREATININE 1.1 mg/dL (0.7-1.3); GFR 77.4; TOTAL BILIRUBIN 0.1 mg/dL (0.2-1.0); TOTAL PROTEIN 4.2 g/dL (6.4-8.2)
[2019-10-11 22:11] LABS: CALCIUM 5.5 mg/dL (8.5-10.1); POTASSIUM 2.6 mmol/L (3.5-5.1)
[2019-10-11] MEDS ORDERED: POTASSIUM CHLORIDE 20MEQ 100 ML IV ONE (22:30)
[2019-10-11 22:38] LABS: PCO2 ABG 39 mmHg (35-46)
[2019-10-11 22:39] LABS: HCO3 ABG 24 mmol/L (21-28); PO2 ABG 78 mmHg (65-108)
[2019-10-11 22:40] LABS: SAT O2 ABG 96 % (92-99)
[2019-10-11 22:41] LABS: FIO2 ABG 21
[2019-10-11] MEDS ORDERED: ONDANSETRON PF 4 MG/2 ML VIAL. IV PRN (22:45)
[2019-10-11] MEDS ORDERED: ACETAMINOPHEN 325 MG TABLET. PO PRN (22:45)
[2019-10-11] MEDS ORDERED: CALCIUM GLUCONATE 1,000 MG/10 ML VIAL. IVP ONE (23:00)
[2019-10-11] MEDS: POTASSIUM CHLORIDE 10MEQ 100 ML IV SCH (23:02)
[2019-10-12] VITALS (7 sets, daily range): BP systolic 119–142; BP diastolic 67–92
[2019-10-12] MEDS: POTASSIUM CHLORIDE 10MEQ 100 ML IV SCH
[2019-10-12 03:38] LABS: BASO % 1 % (0-3); EOS # 0.4 x10^3/uL (0.0-0.7); EOS % 4 % (0-3); HEMATOCRIT 42.8 % (39.0-53.0); HEMOGLOBIN 14.1 g/dL (13.0-17.5); LYMPH # 0.7 x10^3/uL (1.0-4.8); LYMPH % 8 % (24-48); MEAN CORPUSCULAR HEMOGLOBIN 33 pg (25-35); MEAN CORPUSCULAR HGB CONC 33 g/dL (31-37); MEAN CORPUSCULAR VOLUME 99 fL (79-100); MONO # 0.4 x10^3/uL (0.0-1.1); MONO % 5 % (0-9); NEUT % 84 % (31-73); PLATELET COUNT 179 x10^3/uL (140-400); RED BLOOD COUNT 4.31 x10^6/uL (4.30-5.70); RED CELL DISTRIBUTION WIDTH 16.5 % (11.5-14.5); WHITE BLOOD COUNT 9.6 x10^3/uL (4.0-11.0)
[2019-10-12 04:15] LABS: ALBUMIN 2.6 g/dL (3.4-5.0); ALBUMIN/GLOBULIN RATIO 0.7 (1.0-1.7); CALCIUM 8.4 mg/dL (8.5-10.1); CREATININE 1.7 mg/dL (0.7-1.3); GFR 46.8; POTASSIUM 4.8 mmol/L (3.5-5.1); TOTAL BILIRUBIN 0.3 mg/dL (0.2-1.0); TOTAL PROTEIN 6.6 g/dL (6.4-8.2)
--- NOTE | 2019-10-12 06:41 | NUR ---
unable to get camera to print pictures of wounds Addendum: 10/12/19 at 0642 by KOFFI COLEMAN RN Amended: Links added.
[2019-10-12] MEDS ORDERED: IPRATRPIUM/ALBUTEROL 0.5/2.5MG 3 ML NEBU. NEB SCH (08:00)
--- NOTE | 2019-10-12 10:08 | PDOC1 ---
History and Physical Date of Admission Date of Admission DATE: 10/12/19 TIME: 10:08 Identification/Chief Complaint Chief Complaint seen in er post fall, 84-year-old male with underlying history of COPD, hypertension presents to the emergency department after fall. Patient complains of right wrist and arm pain. There is bruising appreciated Unsure when the fall took place. Patient is more altered than usual according to EMS as well as nursing. // expiratory wheeze appreciated. //able to answer some questions appropriately however keeps his eyes closed. Patient denies any chest pain, abdominal pain, + SOB on exam. He does have chronic lower extremity wounds appreciated. CA LOW Past Medical History Past Medical History Past Medical History Past Medical History Past Medical History: A-Fib, Anemia, CAD, COPD, GERD, High Cholesterol, Heart Disease, [place] Additional Past Medical Histor: H/A, OBESITY, YOCHA DEHE, BPH,AMS,LYMPHEDEMA,MDD,PSYCHOSIS,NSTEMI,DYSPHAGIA Past Surgical History: Appendectomy, Pacemaker, Other Additional Past Surgical Histo: Hernia Smoking Status: Former Smoker Alcohol Use: None Drug Use: None FHX OBESITY Cardiovascular: CAD, CHF, HTN, Hyperlipidemia, Other Pulmonary: COPD, Pneumonia CENTRAL NERVOUS SYSTEM: Dementia GI: GERD, Other Heme/Onc: Anemia NOS Psych: Depression, Other Musculoskeletal: Osteoarthritis, Weakness Rheumatologic: Other Renal/: Chronic renal insuff, Benign prostatic enlarg. Past Surgical History Past Surgical History: Pacemaker, Appendectomy, Cholecystectomy, Other Family History Family History: Heart Disease, Hypertension Social History Smoke: No ALCOHOL: none Drugs: None Current Problem List Problem List Problems Medical Problems: (1) COPD (chronic obstructive pulmonary disease) Status: Acute Current Medications Current Medications Current Medications Sodium Chloride 1,000 ml @ 1,000 mls/hr Q1H IV Last administered on 10/11/19at 20:54; Start 10/11/19 at 20:00; Stop 10/11/19 at 20:59; Status DC Albuterol/ Ipratropium (Duoneb) 3 ml 1X ONCE NEB Last administered on 10/11/19at 20:07; Start 10/11/19 at 20:00; Stop 10/11/19 at 20:01; Status DC Methylprednisolone Sodium Succinate (SOLU-Medrol 125MG VIAL) 125 mg 1X ONCE IV Last administered on 10/11/19at 20:58; Start 10/11/19 at 20:30; Stop 10/11/19 at 20:31; Status DC Calcium Gluconate (Calcium Gluconate) 1,000 mg 1X ONCE IVP ; Start 10/11/19 at 23:00; Stop 10/11/19 at 23:01; Status DC Potassium Chloride/Water 100 ml @ 50 mls/hr 1X ONCE IV ; Start 10/11/19 at 22:30; Stop 10/12/19 at 00:29; Status UNV Potassium Chloride/Water 100 ml @ 100 mls/hr Q1H IV Last administered on 10/12/19at 00:00; Start 10/11/19 at 23:00; Stop 10/12/19 at 00:59; Status DC Ondansetron HCl (Zofran) 4 mg PRN Q8HRS PRN IV NAUSEA/VOMITING 1ST CHOICE; Start 10/11/19 at 22:45; Stop 10/12/19 at 22:44 Acetaminophen (Tylenol) 650 mg PRN Q4HRS PRN PO FEVER; Start 10/11/19 at 22:45; Stop 10/12/19 at 22:44 Albuterol/ Ipratropium (Duoneb) 3 ml RTQID NEB Last administered on 10/12/19at 08:00; Start 10/12/19 at 08:00; Stop 10/13/19 at 07:59 Active Scripts Active Cefdinir 300 Mg Capsule 1 Cap PO BID Hydrocodone-Apap 5-325 (Hydrocodone Bit/Acetaminophen) 1 Tab Tablet 1 Tab PO PRN Q4HRS PRN 5 Days Culturelle (Lactobacillus Rhamnosus Gg) 1 Each Cap.sprink 1 Cap PO BID 30 Days Dok (Docusate Sodium) 100 Mg Capsule 100 Mg PO PRN BID PRN 30 Days Risperidone 0.25 Mg Tablet 0.5 Mg PO BID 10 Days Zyprexa Zydis (Olanzapine) 5 Mg Tab.rapdis 5 Mg PO PRN BID PRN 30 Days Proventil Hfa (Albuterol Sulfate) 6.7 Gm Hfa.aer.ad 1 Puff INH PRN Q6HRS PRN Amlodipine Besylate 10 Mg Tablet 10 Mg PO DAILY MDD 1 30 Days Hydralazine Hcl 25 Mg Tablet 25 Mg PO TID MDD 1 30 Days Aspirin Ec (Aspirin) 81 Mg Tablet.dr 81 Mg PO DAILYWBKFT 30 Days Duoneb 0.5-3(2.5) Mg/3 Ml (Albuterol/Ipratropium) 3 Ml Ampul.neb 3 Ml NEB RTQID 30 Days Reported Klor-Con 10 (Potassium Chloride) 10 Meq Tablet.er 20 Meq PO DAILY PRN Lasix (Furosemide) 20 Mg Tablet 1 Tab PO DAILY 30 Days Lopressor (Metoprolol Tartrate) 100 Mg Tablet 50 Mg PO BID Nystatin 15 Gm Powder 1 Alberto TP BID Milk Of Magnesia (Magnesium Hydroxide) 400 Mg/5 Ml Oral.susp 400 Mg PO PRN DAILY PRN Mag-Oxide (Magnesium Oxide) 400 Mg Tablet 1 Tab PO BID Miralax (Polyethylene Glycol 3350) 17 Gm Powd.pack 1 Packet PO PRN DAILY PRN Tylenol (Acetaminophen) 325 Mg Tablet 1 Tab PO PRN Q6HRS PRN Famotidine 20 Mg Tablet 20 Mg PO HS Allergies Allergies: Coded Allergies: Penicillins (Verified Allergy, Intermediate, Itching, 09/21/19) Tolerates zosyn, augmentin I S O L A T I O N *CONTACT* (Verified Allergy, Unknown, 10/16/18) mrsa ROS Review of System Review of Systems Review of Systems Constitutional: Denies fever or chills [] Respiratory: + shortness of breath [] Cardiovascular: No additional information not addressed in HPI [] GI: Denies abdominal pain, nausea, vomiting, bloody stools or diarrhea [] Musculoskeletal: pain to right wrist/forearm Neurologic: Denies headache, focal weakness or sensory changes [] 14 pt systems were reviewed and found to be within normal limits, except as documented Musculoskeletal: Yes Joint Stiffness Neurological: Yes Behavorial Changes Physical Exam Physical Exam Physical Exam Physical Exam Constitutional: Well developed, well nourished, mild respiratory distress, non- toxic appearance. [] HENT: Normocephalic, atraumatic, bilateral external ears normal, oropharynx moist, no oral exudates, nose normal. [] Eyes: PERRLA, EOMI, conjunctiva normal, no discharge. [] Neck: Normal range of motion, no tenderness, supple, no stridor. [] Cardiovascular:Heart rate regular rhythm, no murmur [] Lungs & Thorax: + exp wheeze appreciated bilaterally Abdomen: Bowel sounds normal, soft, no tenderness, no masses, no pulsatile masses. [] Skin: chronic lower ext venous stasis changes appreciated Extremities: No tenderness, no edema. [] Neurologic: Alert and oriented X 2, no focal deficits noted. [] Psychologic: Affect normal, judgment normal, mood normal. [] PELVIC: Examination not indicated Extremities: No cyanosis Neuro: Cranial nerves 3-12 NL Psych/Mental Status: Mood NL Vitals Vitals Vital Signs Date Time Temp Pulse Resp B/P (MAP) Pulse Ox O2 Delivery O2 Flow Rate FiO2 10/12/19 08:15 96 Room Air 10/12/19 07:00 98.0 69 18 134/88 (103) 98.0 Labs Labs Laboratory Tests Test 10/11/19 19:28 10/11/19 20:10 10/11/19 20:20 10/11/19 21:45 Glucose (Fingerstick) 111 mg/dL (70-99) O2 Saturation 96 % (92-99) Arterial Blood pH 7.41 (7.35-7.45) Arterial Blood pCO2 at Patient Temp 39 mmHg (35-46) Arterial Blood pO2 at Patient Temp 78 mmHg (65-108) Arterial Blood HCO3 24 mmol/L (21-28) Arterial Blood Base Excess -0 mmol/L (-3-3) FiO2 21 White Blood Count 8.7 x10^3/uL (4.0-11.0) Red Blood Count 4.42 x10^6/uL (4.30-5.70) Hemoglobin 14.3 g/dL (13.0-17.5) Hematocrit 44.1 % (39.0-53.0) Mean Corpuscular Volume 100 fL (79-100) Mean Corpuscular Hemoglobin 32 pg (25-35) Mean Corpuscular Hemoglobin Concent 33 g/dL (31-37) Red Cell Distribution Width 16.2 % (11.5-14.5) Platelet Count 197 x10^3/uL (140-400) Neutrophils (%) (Auto) 63 % (31-73) Lymphocytes (%) (Auto) 13 % (24-48) Monocytes (%) (Auto) 15 % (0-9) Eosinophils (%) (Auto) 9 % (0-3) Basophils (%) (Auto) 1 % (0-3) Neutrophils # (Auto) 5.4 x10^3/uL (1.8-7.7) Lymphocytes # (Auto) 1.1 x10^3/uL (1.0-4.8) Monocytes # (Auto) 1.3 x10^3/uL (0.0-1.1) Eosinophils # (Auto) 0.8 x10^3/uL (0.0-0.7) Basophils # (Auto) 0.1 x10^3/uL (0.0-0.2) Lactic Acid Level 3.0 mmol/L (0.4-2.0) Sodium Level 148 mmol/L (136-145) Potassium Level 2.6 mmol/L (3.5-5.1) Chloride Level 117 mmol/L (98-107) Carbon Dioxide Level 22 mmol/L (21-32) Anion Gap 9 (6-14) Blood Urea Nitrogen 16 mg/dL (8-26) Creatinine 1.1 mg/dL (0.7-1.3) Estimated GFR (Cockcroft-Gault) 77.4 BUN/Creatinine Ratio 15 (6-20) Glucose Level 87 mg/dL (70-99) Calcium Level 5.5 mg/dL (8.5-10.1) Total Bilirubin 0.1 mg/dL (0.2-1.0) Aspartate Amino Transf (AST/SGOT) 10 U/L (15-37) Alanine Aminotransferase (ALT/SGPT) 8 U/L (16-63) Alkaline Phosphatase 75 U/L (46-116) Total Protein 4.2 g/dL (6.4-8.2) Albumin 1.5 g/dL (3.4-5.0) Albumin/Globulin Ratio 0.6 (1.0-1.7) Test 10/12/19 00:15 10/12/19 03:00 10/12/19 07:33 Lactic Acid Level 1.6 mmol/L (0.4-2.0) White Blood Count 9.6 x10^3/uL (4.0-11.0) Red Blood Count 4.31 x10^6/uL (4.30-5.70) Hemoglobin 14.1 g/dL (13.0-17.5) Hematocrit 42.8 % (39.0-53.0) Mean Corpuscular Volume 99 fL (79-100) Mean Corpuscular Hemoglobin 33 pg (25-35) Mean Corpuscular Hemoglobin Concent 33 g/dL (31-37) Red Cell Distribution Width 16.5 % (11.5-14.5) Platelet Count 179 x10^3/uL (140-400) Neutrophils (%) (Auto) 84 % (31-73) Lymphocytes (%) (Auto) 8 % (24-48) Monocytes (%) (Auto) 5 % (0-9) Eosinophils (%) (Auto) 4 % (0-3) Basophils (%) (Auto) 1 % (0-3) Neutrophils # (Auto) 8.0 x10^3/uL (1.8-7.7) Lymphocytes # (Auto) 0.7 x10^3/uL (1.0-4.8) Monocytes # (Auto) 0.4 x10^3/uL (0.0-1.1) Eosinophils # (Auto) 0.4 x10^3/uL (0.0-0.7) Basophils # (Auto) 0.0 x10^3/uL (0.0-0.2) Sodium Level 140 mmol/L (136-145) Potassium Level 4.8 mmol/L (3.5-5.1) Chloride Level 105 mmol/L (98-107) Carbon Dioxide Level 24 mmol/L (21-32) Anion Gap 11 (6-14) Blood Urea Nitrogen 21 mg/dL (8-26) Creatinine 1.7 mg/dL (0.7-1.3) Estimated GFR (Cockcroft-Gault) 46.8 BUN/Creatinine Ratio 12 (6-20) Glucose Level 96 mg/dL (70-99) Calcium Level 8.4 mg/dL (8.5-10.1) Total Bilirubin 0.3 mg/dL (0.2-1.0) Aspartate Amino Transf (AST/SGOT) 32 U/L (15-37) Alanine Aminotransferase (ALT/SGPT) 21 U/L (16-63) Alkaline Phosphatase 123 U/L (46-116) Total Protein 6.6 g/dL (6.4-8.2) Albumin 2.6 g/dL (3.4-5.0) Albumin/Globulin Ratio 0.7 (1.0-1.7) Glucose (Fingerstick) 132 mg/dL (70-99) Laboratory Tests Test 10/11/19 19:28 10/11/19 20:10 10/11/19 20:20 10/11/19 21:45 Glucose (Fingerstick) 111 mg/dL (70-99) O2 Saturation 96 % (92-99) Arterial Blood pH 7.41 (7.35-7.45) Arterial Blood pCO2 at Patient Temp 39 mmHg (35-46) Arterial Blood pO2 at Patient Temp 78 mmHg (65-108) Arterial Blood HCO3 24 mmol/L (21-28) Arterial Blood Base Excess -0 mmol/L (-3-3) FiO2 21 White Blood Count 8.7 x10^3/uL (4.0-11.0) Red Blood Count 4.42 x10^6/uL (4.30-5.70) Hemoglobin 14.3 g/dL (13.0-17.5) Hematocrit 44.1 % (39.0-53.0) Mean Corpuscular Volume 100 fL (79-100) Mean Corpuscular Hemoglobin 32 pg (25-35) Mean Corpuscular Hemoglobin Concent 33 g/dL (31-37) Red Cell Distribution Width 16.2 % (11.5-14.5) Platelet Count 197 x10^3/uL (140-400) Neutrophils (%) (Auto) 63 % (31-73) Lymphocytes (%) (Auto) 13 % (24-48) Monocytes (%) (Auto) 15 % (0-9) Eosinophils (%) (Auto) 9 % (0-3) Basophils (%) (Auto) 1 % (0-3) Neutrophils # (Auto) 5.4 x10^3/uL (1.8-7.7) Lymphocytes # (Auto) 1.1 x10^3/uL (1.0-4.8) Monocytes # (Auto) 1.3 x10^3/uL (0.0-1.1) Eosinophils # (Auto) 0.8 x10^3/uL (0.0-0.7) Basophils # (Auto) 0.1 x10^3/uL (0.0-0.2) Lactic Acid Level 3.0 mmol/L (0.4-2.0) Sodium Level 148 mmol/L (136-145) Potassium Level 2.6 mmol/L (3.5-5.1) Chloride Level 117 mmol/L (98-107) Carbon Dioxide Level 22 mmol/L (21-32) Anion Gap 9 (6-14) Blood Urea Nitrogen 16 mg/dL (8-26) Creatinine 1.1 mg/dL (0.7-1.3) Estimated GFR (Cockcroft-Gault) 77.4 BUN/Creatinine Ratio 15 (6-20) Glucose Level 87 mg/dL (70-99) Calcium Level 5.5 mg/dL (8.5-10.1) Total Bilirubin 0.1 mg/dL (0.2-1.0) Aspartate Amino Transf (AST/SGOT) 10 U/L (15-37) Alanine Aminotransferase (ALT/SGPT) 8 U/L (16-63) Alkaline Phosphatase 75 U/L (46-116) Total Protein 4.2 g/dL (6.4-8.2) Albumin 1.5 g/dL (3.4-5.0) Albumin/Globulin Ratio 0.6 (1.0-1.7) Test 10/12/19 00:15 10/12/19 03:00 10/12/19 07:33 Lactic Acid Level 1.6 mmol/L (0.4-2.0) White Blood Count 9.6 x10^3/uL (4.0-11.0) Red Blood Count 4.31 x10^6/uL (4.30-5.70) Hemoglobin 14.1 g/dL (13.0-17.5) Hematocrit 42.8 % (39.0-53.0) Mean Corpuscular Volume 99 fL (79-100) Mean Corpuscular Hemoglobin 33 pg (25-35) Mean Corpuscular Hemoglobin Concent 33 g/dL (31-37) Red Cell Distribution Width 16.5 % (11.5-14.5) Platelet Count 179 x10^3/uL (140-400) Neutrophils (%) (Auto) 84 % (31-73) Lymphocytes (%) (Auto) 8 % (24-48) Monocytes (%) (Auto) 5 % (0-9) Eosinophils (%) (Auto) 4 % (0-3) Basophils (%) (Auto) 1 % (0-3) Neutrophils # (Auto) 8.0 x10^3/uL (1.8-7.7) Lymphocytes # (Auto) 0.7 x10^3/uL (1.0-4.8) Monocytes # (Auto) 0.4 x10^3/uL (0.0-1.1) Eosinophils # (Auto) 0.4 x10^3/uL (0.0-0.7) Basophils # (Auto) 0.0 x10^3/uL (0.0-0.2) Sodium Level 140 mmol/L (136-145) Potassium Level 4.8 mmol/L (3.5-5.1) Chloride Level 105 mmol/L (98-107) Carbon Dioxide Level 24 mmol/L (21-32) Anion Gap 11 (6-14) Blood Urea Nitrogen 21 mg/dL (8-26) Creatinine 1.7 mg/dL (0.7-1.3) Estimated GFR (Cockcroft-Gault) 46.8 BUN/Creatinine Ratio 12 (6-20) Glucose Level 96 mg/dL (70-99) Calcium Level 8.4 mg/dL (8.5-10.1) Total Bilirubin 0.3 mg/dL (0.2-1.0) Aspartate Amino Transf (AST/SGOT) 32 U/L (15-37) Alanine Aminotransferase (ALT/SGPT) 21 U/L (16-63) Alkaline Phosphatase 123 U/L (46-116) Total Protein 6.6 g/dL (6.4-8.2) Albumin 2.6 g/dL (3.4-5.0) Albumin/Globulin Ratio 0.7 (1.0-1.7) Glucose (Fingerstick) 132 mg/dL (70-99) VTE Prophylaxis Ordered VTE Prophylaxis Devices: Contraindicated VTE Pharmacological Prophylaxi: Yes Assessment/Plan Assessment/Plan Impression: AMS (altered mental status) morbid obesity Hypokalemia Hypocalcemia COPD (chronic obstructive pulmonary disease) Right second toe necrotic ulcer //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 essential hypertension HX PSYCHOSIS severe protein-caloric malnutrition ADMITTED replace k tele duonebs qid PT/OT HOME MEDS FALL PRECAUTIONS REPLACE CA IONIZED CA DVT PROPHYLAXIS may need sitter 76 min pt exam, chart review, > 50% of time spent with exam, chart review, pt care coordination CARLOS LINDSEY MD Oct 12, 2019 10:08
--- NOTE | 2019-10-12 10:18 | EKG ---
[facility] [address] [place] [address] Test Date: 2019-10-11 Test Time: 19:40:29 Pat Name: DARYL WEBSTER Department: Room: Gender: M Director Information: : 1935 Requested By: ROSALIE GRECO Order Number: [id number] Reading MD: Measurements Intervals [place] Rate: 70 P: 0 DE: 306 QRS: -71 QRSD: 172 T: 87 QT: 450 QTc: 489 Interpretive Statements SINUS RHYTHM PROLONGED DE INTERVAL ABNORMAL LEFT AXIS DEVIATION NON SPECIFIC INTRAVENTRICULAR BLOCK QRS(T) CONTOUR ABNORMALITY CONSISTENT WITH ANTEROLATERAL INFARCT PROBABLY OLD CONSISTENT WITH INFERIOR INFARCT PROBABLY OLD ABNORMAL ECG RI6.01 No previous ECG available for comparison
[2019-10-12] MEDS ORDERED: cloNIDine HCL 0.1 MG TABLET PO PRN (11:30)
[2019-10-12] MEDS ORDERED: POLYETHYLENE GLYCOL 3350 17 GM PACKET. PO PRN (11:30)
[2019-10-12] MEDS ORDERED: MAGNESIUM HYDROXIDE 2,400 MG/30 ML ORAL.SUSP. PO PRN (11:30)
[2019-10-12] MEDS ORDERED: ONDANSETRON PF 4 MG/2 ML VIAL. IV PRN (11:30)
[2019-10-12] MEDS ORDERED: 0.9 % SODIUM CHLORIDE 10 ML DISP.SYRIN. IV PRN (11:30)
[2019-10-12] MEDS ORDERED: guaiFENesin ORAL 200 MG/10 ML LIQUID. PO PRN (11:30)
[2019-10-12] MEDS ORDERED: DOCUSATE SODIUM 100 MG CAPSULE. PO PRN ×2 (11:30)
[2019-10-12] MEDS ORDERED: ACETAMINOPHEN 325 MG TABLET. PO PRN ×2 (11:30)
[2019-10-12] MEDS ORDERED: ALBUTEROL SULFATE 2.5 MG/3 ML NEBU. NEB PRN (11:45)
[2019-10-12] MEDS: NYSTATIN TOPICAL POWDER 15GM BOTTLE. TP SCH ×2 (12:00→21:07)
[2019-10-12] MEDS: IPRATRPIUM/ALBUTEROL 0.5/2.5MG 3 ML NEBU. NEB SCH ×3 (12:12→20:30)
[2019-10-12] MEDS: LACTOBACILLUS RHAMNOSUS GG 1 CAPSULE. PO SCH ×2 (12:58→21:07)
[2019-10-12] MEDS: IV NORMAL SALINE 1000ML BAG 1,000 ML IV SCH (12:58)
[2019-10-12] MEDS: ASPIRIN ENTERIC COATED 81 MG TABLET.DR. PO SCH (12:59)
[2019-10-12] MEDS: METOPROLOL TART IMMED RELEASE 50 MG TABLET. PO SCH ×2 (13:01→21:06)
[2019-10-12] MEDS: MAGNESIUM OXIDE 400 MG TABLET PO SCH ×2 (13:01→21:07)
[2019-10-12] MEDS: POTASSIUM CHLORIDE 20 MEQ TABLET.ER. PO SCH (13:02)
[2019-10-12] MEDS: amLODIPine BESYLATE 10 MG TABLET PO SCH (13:02)
[2019-10-12] MEDS: risperiDONE 0.25 MG TABLET. PO SCH ×2 (13:03→21:06)
[2019-10-12] MEDS: FUROSEMIDE 20 MG TABLET PO SCH (13:03)
[2019-10-12] MEDS: hydrALAZINE 25 MG TABLET PO SCH ×2 (13:03→21:07)
[2019-10-12] MEDS: ENOXAPARIN 40 MG/0.4 ML SYRINGE. SQ SCH (13:04)
--- NOTE | 2019-10-12 19:04 | NUR ---
Night RN stated during report this am that she gave 10/11/2019 2300 calcium gluconate. eMAR shows medication active.
--- NOTE | 2019-10-12 20:38 | NUR ---
PT COMBATIVE AND REFUSING ALL MEDICATIONS AND CARE AT THIS TIME.
[2019-10-12] MEDS: FAMOTIDINE 20 MG TABLET. PO SCH (21:06)
[2019-10-12] MEDS: LORazepam 0.5 MG TABLET PO PRN (21:06)
[2019-10-12] MEDS ORDERED: HALOPERIDOL LACTATE 5 MG/ML VIAL. IM ONE (21:30)
--- NOTE | 2019-10-12 23:58 | NUR ---
Pt was agitated and combative toward staffs, constantly pulling telemetry box off. Pt pulled out IV access. Initially refused all PO meds. Dr. Lopez notified and order received Haldol 3mg IM x1. RN was able to convinced pt to take PO meds with chocolate pudding so Haldol not given yet at this time. Pt continue to refused care such as turning and changing at this time. Pt is resting comfortably at this time. Will continue to monitor pt closely.
[2019-10-13] MEDS: IV NORMAL SALINE 1000ML BAG 1,000 ML IV SCH ×2 (01:47→15:19)
[2019-10-13 03:00] VITALS: BP 129/82
[2019-10-13 07:59] VITALS: BP 134/79
[2019-10-13] MEDS: POTASSIUM CHLORIDE 20 MEQ TABLET.ER. PO SCH (08:56)
[2019-10-13] MEDS: risperiDONE 0.25 MG TABLET. PO SCH ×2 (08:57→22:46)
[2019-10-13] MEDS: hydrALAZINE 25 MG TABLET PO SCH ×3 (08:57→22:46)
[2019-10-13] MEDS: LACTOBACILLUS RHAMNOSUS GG 1 CAPSULE. PO SCH ×2 (08:57→22:45)
[2019-10-13] MEDS: amLODIPine BESYLATE 10 MG TABLET PO SCH (08:57)
[2019-10-13] MEDS: ASPIRIN ENTERIC COATED 81 MG TABLET.DR. PO SCH (08:57)
[2019-10-13] MEDS: FUROSEMIDE 20 MG TABLET PO SCH (08:57)
[2019-10-13] MEDS: NYSTATIN TOPICAL POWDER 15GM BOTTLE. TP SCH ×2 (08:57→22:46)
[2019-10-13] MEDS: MAGNESIUM OXIDE 400 MG TABLET PO SCH ×2 (08:57→22:45)
[2019-10-13] MEDS: METOPROLOL TART IMMED RELEASE 50 MG TABLET. PO SCH ×2 (08:57→22:45)
[2019-10-13] MEDS: IPRATRPIUM/ALBUTEROL 0.5/2.5MG 3 ML NEBU. NEB SCH ×4 (09:35→20:00)
--- NOTE | 2019-10-13 11:33 | PDOC ---
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 essential hypertension HX PSYCHOSIS severe protein-caloric malnutrition ADMITTED replace k tele duonebs qid PT/OT HOME MEDS FALL PRECAUTIONS REPLACE CA IONIZED CA PENDING DVT PROPHYLAXIS may need sitter, AGITATED LAST PM 10/13 NEUROLOGY CONSULT 36 min pt exam, chart review, > 50% of time spent with exam, chart review, pt care coordination Vitals Vitals Vital Signs Date Time Temp Pulse Resp B/P (MAP) Pulse Ox O2 Delivery O2 Flow Rate FiO2 10/13/19 09:39 96 Room Air 10/13/19 08:57 73 134/79 10/13/19 07:59 97.1 18 97.1 Physical Exam Physical Exam Eyes: PERRLA, EOMI, conjunctiva normal, no discharge. [] Neck: Normal range of motion, no tenderness, supple, no stridor. [] Cardiovascular:Heart rate regular rhythm, no murmur [] Lungs & Thorax: + exp wheeze appreciated bilaterally Abdomen: Bowel sounds normal, soft, no tenderness, no masses, no pulsatile masses. [] Skin: chronic lower ext venous stasis changes appreciated Extremities: No tenderness, no edema. [] Neurologic: Alert and oriented X 2, no focal deficits noted. [] Psychologic: Affect normal, judgment normal, mood normal. [] PELVIC: Examination not indicated Extremities: No cyanosis Neuro: Cranial nerves 3-12 NL Psych/Mental Status: Mood NL Lungs: Clear, Other Extremities: No cyanosis Labs LABS STUDY: CT head without contrast INDICATION: Fall. Decreased level of consciousness. COMPARISON: 10/14/2018 TECHNIQUE: Axial CT imaging through the head without the use of intravenous contrast. Sagittal and coronal reformats were obtained. One or more of the following individualized dose reduction techniques were utilized for this examination: 1. Automated exposure control 2. Adjustment of the mA and/or kV according to patient size 3. Use of iterative reconstruction technique. FINDINGS: Study degradation on account of motion artifact. Taking into consideration motion, no acute intracranial hemorrhage or new site of pierre-white matter differentiation loss. Redemonstrated cortical/subcortical low-attenuation overlying the right lateral ventricle occipital horn. No mass effect or midline shift. Parenchymal volume loss with unchanged ventricular prominence. Confluent areas of white matter low-attenuation are most compatible with the sequela of chronic microvascular ischemic change. Intracranial atherosclerotic calcifications. No newly seen calvarial abnormality. IMPRESSION: 1. Taking into consideration motion degradation, no acute intracranial abnormality is seen by CT. 2. Chronic findings to include a region of cortical/subcortical low-attenuation overlying the right lateral ventricle occipital horn are not significantly different from the prior. Electronically signed by: DEXTER COBURN MD (10/11/2019 8:10 PM) [id number] DICTATED and SIGNED BY: DEXTER COBURN MD DATE: 10/11/192009 Laboratory Tests Test 10/12/19 20:57 10/13/19 07:51 10/13/19 11:03 Glucose (Fingerstick) 120 mg/dL (70-99) 101 mg/dL (70-99) 96 mg/dL (70-99) Assessment and Plan Assessmemt and Plan Problems Medical Problems: (1) COPD (chronic obstructive pulmonary disease) Status: Acute Comment Review of Relevant I have reviewed the following items patrick (where applicable) has been applied. Labs Laboratory Tests Test 10/11/19 19:28 10/11/19 20:10 10/11/19 20:20 10/11/19 21:45 Glucose (Fingerstick) 111 mg/dL (70-99) O2 Saturation 96 % (92-99) Arterial Blood pH 7.41 (7.35-7.45) Arterial Blood pCO2 at Patient Temp 39 mmHg (35-46) Arterial Blood pO2 at Patient Temp 78 mmHg (65-108) Arterial Blood HCO3 24 mmol/L (21-28) Arterial Blood Base Excess -0 mmol/L (-3-3) FiO2 21 White Blood Count 8.7 x10^3/uL (4.0-11.0) Red Blood Count 4.42 x10^6/uL (4.30-5.70) Hemoglobin 14.3 g/dL (13.0-17.5) Hematocrit 44.1 % (39.0-53.0) Mean Corpuscular Volume 100 fL (79-100) Mean Corpuscular Hemoglobin 32 pg (25-35) Mean Corpuscular Hemoglobin Concent 33 g/dL (31-37) Red Cell Distribution Width 16.2 % (11.5-14.5) Platelet Count 197 x10^3/uL (140-400) Neutrophils (%) (Auto) 63 % (31-73) Lymphocytes (%) (Auto) 13 % (24-48) Monocytes (%) (Auto) 15 % (0-9) Eosinophils (%) (Auto) 9 % (0-3) Basophils (%) (Auto) 1 % (0-3) Neutrophils # (Auto) 5.4 x10^3/uL (1.8-7.7) Lymphocytes # (Auto) 1.1 x10^3/uL (1.0-4.8) Monocytes # (Auto) 1.3 x10^3/uL (0.0-1.1) Eosinophils # (Auto) 0.8 x10^3/uL (0.0-0.7) Basophils # (Auto) 0.1 x10^3/uL (0.0-0.2) Lactic Acid Level 3.0 mmol/L (0.4-2.0) Sodium Level 148 mmol/L (136-145) Potassium Level 2.6 mmol/L (3.5-5.1) Chloride Level 117 mmol/L (98-107) Carbon Dioxide Level 22 mmol/L (21-32) Anion Gap 9 (6-14) Blood Urea Nitrogen 16 mg/dL (8-26) Creatinine 1.1 mg/dL (0.7-1.3) Estimated GFR (Cockcroft-Gault) 77.4 BUN/Creatinine Ratio 15 (6-20) Glucose Level 87 mg/dL (70-99) Calcium Level 5.5 mg/dL (8.5-10.1) Total Bilirubin 0.1 mg/dL (0.2-1.0) Aspartate Amino Transf (AST/SGOT) 10 U/L (15-37) Alanine Aminotransferase (ALT/SGPT) 8 U/L (16-63) Alkaline Phosphatase 75 U/L (46-116) Total Protein 4.2 g/dL (6.4-8.2) Albumin 1.5 g/dL (3.4-5.0) Albumin/Globulin Ratio 0.6 (1.0-1.7) Test 10/12/19 00:15 10/12/19 03:00 10/12/19 07:33 10/12/19 11:10 Lactic Acid Level 1.6 mmol/L (0.4-2.0) White Blood Count 9.6 x10^3/uL (4.0-11.0) Red Blood Count 4.31 x10^6/uL (4.30-5.70) Hemoglobin 14.1 g/dL (13.0-17.5) Hematocrit 42.8 % (39.0-53.0) Mean Corpuscular Volume 99 fL (79-100) Mean Corpuscular Hemoglobin 33 pg (25-35) Mean Corpuscular Hemoglobin Concent 33 g/dL (31-37) Red Cell Distribution Width 16.5 % (11.5-14.5) Platelet Count 179 x10^3/uL (140-400) Neutrophils (%) (Auto) 84 % (31-73) Lymphocytes (%) (Auto) 8 % (24-48) Monocytes (%) (Auto) 5 % (0-9) Eosinophils (%) (Auto) 4 % (0-3) Basophils (%) (Auto) 1 % (0-3) Neutrophils # (Auto) 8.0 x10^3/uL (1.8-7.7) Lymphocytes # (Auto) 0.7 x10^3/uL (1.0-4.8) Monocytes # (Auto) 0.4 x10^3/uL (0.0-1.1) Eosinophils # (Auto) 0.4 x10^3/uL (0.0-0.7) Basophils # (Auto) 0.0 x10^3/uL (0.0-0.2) Sodium Level 140 mmol/L (136-145) Potassium Level 4.8 mmol/L (3.5-5.1) Chloride Level 105 mmol/L (98-107) Carbon Dioxide Level 24 mmol/L (21-32) Anion Gap 11 (6-14) Blood Urea Nitrogen 21 mg/dL (8-26) Creatinine 1.7 mg/dL (0.7-1.3) Estimated GFR (Cockcroft-Gault) 46.8 BUN/Creatinine Ratio 12 (6-20) Glucose Level 96 mg/dL (70-99) Calcium Level 8.4 mg/dL (8.5-10.1) Total Bilirubin 0.3 mg/dL (0.2-1.0) Aspartate Amino Transf (AST/SGOT) 32 U/L (15-37) Alanine Aminotransferase (ALT/SGPT) 21 U/L (16-63) Alkaline Phosphatase 123 U/L (46-116) Total Protein 6.6 g/dL (6.4-8.2) Albumin 2.6 g/dL (3.4-5.0) Albumin/Globulin Ratio 0.7 (1.0-1.7) Glucose (Fingerstick) 132 mg/dL (70-99) 117 mg/dL (70-99) Test 10/12/19 20:57 10/13/19 07:51 10/13/19 11:03 Glucose (Fingerstick) 120 mg/dL (70-99) 101 mg/dL (70-99) 96 mg/dL (70-99) Laboratory Tests Test 10/12/19 20:57 10/13/19 07:51 10/13/19 11:03 Glucose (Fingerstick) 120 mg/dL (70-99) 101 mg/dL (70-99) 96 mg/dL (70-99) Medications Current Medications Sodium Chloride 1,000 ml @ 1,000 mls/hr Q1H IV Last administered on 10/11/19at 20:54; Start 10/11/19 at 20:00; Stop 10/11/19 at 20:59; Status DC Albuterol/ Ipratropium (Duoneb) 3 ml 1X ONCE NEB Last administered on 10/11/19at 20:07; Start 10/11/19 at 20:00; Stop 10/11/19 at 20:01; Status DC Methylprednisolone Sodium Succinate (SOLU-Medrol 125MG VIAL) 125 mg 1X ONCE IV Last administered on 10/11/19at 20:58; Start 10/11/19 at 20:30; Stop 10/11/19 at 20:31; Status DC Calcium Gluconate (Calcium Gluconate) 1,000 mg 1X ONCE IVP ; Start 10/11/19 at 23:00; Stop 10/11/19 at 23:01; Status DC Potassium Chloride/Water 100 ml @ 50 mls/hr 1X ONCE IV ; Start 10/11/19 at 22:30; Stop 10/12/19 at 00:29; Status UNV Potassium Chloride/Water 100 ml @ 100 mls/hr Q1H IV Last administered on 10/12/19at 00:00; Start 10/11/19 at 23:00; Stop 10/12/19 at 00:59; Status DC Ondansetron HCl (Zofran) 4 mg PRN Q8HRS PRN IV NAUSEA/VOMITING 1ST CHOICE; Start 10/11/19 at 22:45; Stop 10/12/19 at 11:33; Status DC Acetaminophen (Tylenol) 650 mg PRN Q4HRS PRN PO FEVER; Start 10/11/19 at 22:45; Stop 10/12/19 at 22:44; Status DC Albuterol/ Ipratropium (Duoneb) 3 ml RTQID NEB Last administered on 10/12/19at 08:00; Start 10/12/19 at 08:00; Stop 10/12/19 at 11:28; Status DC Acetaminophen (Tylenol) 325 mg PRN Q6HRS PRN PO FEVER; Start 10/12/19 at 11:30; Stop 10/12/19 at 11:34; Status DC Amlodipine Besylate (Norvasc) 10 mg DAILY PO Last administered on 10/13/19at 08:57; Start 10/12/19 at 12:00 Aspirin (Ecotrin) 81 mg DAILYWBKFT PO Last administered on 10/13/19at 08:57; Start 10/12/19 at 12:00 Docusate Sodium (Colace) 100 mg PRN BID PRN PO HARD STOOLS; Start 10/12/19 at 11:30 Famotidine (Pepcid) 20 mg HS PO Last administered on 10/12/19at 21:06; Start 10/12/19 at 21:00 Furosemide (Lasix) 20 mg DAILY PO Last administered on 10/13/19at 08:57; Start 10/12/19 at 12:00 Hydralazine HCl (Apresoline) 25 mg TID PO Last administered on 10/13/19at 08:57; Start 10/12/19 at 14:00 Albuterol/ Ipratropium (Duoneb) 3 ml RTQID NEB Last administered on 10/13/19 09:35; Start 10/12/19 at 12:00 Lactobacillus Rhamnosus (Culturelle) 1 cap BID PO Last administered on 10/13/19 08:57; Start 10/12/19 at 12:00 Magnesium Hydroxide (Milk Of Magnesia) 400 mg PRN DAILY PRN PO INDIGESTION; Start 10/12/19 at 11:30 Nystatin (Nystop) 1 alberto BID TP Last administered on 10/13/19 08:57; Start 10/12/19 at 12:00 Olanzapine (ZyPREXA ZYDIS) 5 mg PRN BID PRN PO agitation; Start 10/12/19 at 11:30 Polyethylene Glycol (miraLAX PACKET) 17 gm PRN DAILY PRN PO CONSTIPATION; Start 10/12/19 at 11:30 Risperidone (RisperDAL) 0.5 mg BID PO Last administered on 10/13/19 08:57; Start 10/12/19 at 12:00 Albuterol Sulfate (Ventolin Neb Soln) 2.5 mg PRN Q6HRS PRN NEB SHORTNESS OF BREATH; Start 10/12/19 at 11:45 Magnesium Oxide (Magnesium Oxide) 400 mg BID PO Last administered on 10/13/19 08:57; Start 10/12/19 at 12:00 Metoprolol Tartrate (Lopressor) 50 mg BID PO Last administered on 10/13/19 08:57; Start 10/12/19 at 12:00 Potassium Chloride (Klor-Con) 20 meq DAILYWBKFT PO Last administered on 10/13/19 08:56; Start 10/12/19 at 12:00 Sodium Chloride (Normal Saline Flush) 3 ml QSHIFT PRN IV AFTER MEDS AND BLOOD DRAWS; Start 10/12/19 at 11:30 Sodium Chloride 1,000 ml @ 70 mls/hr [id number] IV Last administered on 10/12/19at 12:58; Start 10/12/19 at 11:29 Ondansetron HCl (Zofran) 4 mg PRN Q4HRS PRN IV NAUSEA/VOMITING; Start 10/12/19 at 11:30 Acetaminophen (Tylenol) 650 mg PRN Q4HRS PRN PO TEMP OVER 100.4F OR MILD PAIN; Start 10/12/19 at 11:30 Clonidine HCl (Catapres) 0.1 mg PRN Q6HRS PRN PO SBP>160 OR DBP>90; Start 10/12/19 at 11:30 Docusate Sodium (Colace) 100 mg PRN BID PRN PO CONSTIPATION; Start 10/12/19 at 11:30; Status UNV Guaifenesin (Robitussin) 200 mg PRN Q4HRS PRN PO COUGH; Start 10/12/19 at 11:30 Lorazepam (Ativan) 0.5 mg PRN Q4HRS PRN PO ANXIETY / AGITATION Last administered on 10/12/19at 21:06; Start 10/12/19 at 11:30 Enoxaparin Sodium (Lovenox 40mg Syringe) 40 mg Q24H SQ Last administered on 10/12/19at 13:04; Start 10/12/19 at 12:00 Haloperidol Lactate (Haldol Inj) 3 mg 1X ONCE IM ; Start 10/12/19 at 21:30; Stop 10/12/19 at 21:31; Status DC Active Scripts Active Cefdinir 300 Mg Capsule 1 Cap PO BID Hydrocodone-Apap 5-325 (Hydrocodone Bit/Acetaminophen) 1 Tab Tablet 1 Tab PO PRN Q4HRS PRN 5 Days Culturelle (Lactobacillus Rhamnosus Gg) 1 Each Cap.sprink 1 Cap PO BID 30 Days Dok (Docusate Sodium) 100 Mg Capsule 100 Mg PO PRN BID PRN 30 Days Risperidone 0.25 Mg Tablet 0.5 Mg PO BID 10 Days Zyprexa Zydis (Olanzapine) 5 Mg Tab.rapdis 5 Mg PO PRN BID PRN 30 Days Proventil Hfa (Albuterol Sulfate) 6.7 Gm Hfa.aer.ad 1 Puff INH PRN Q6HRS PRN Amlodipine Besylate 10 Mg Tablet 10 Mg PO DAILY MDD 1 30 Days Hydralazine Hcl 25 Mg Tablet 25 Mg PO TID MDD 1 30 Days Aspirin Ec (Aspirin) 81 Mg Tablet.dr 81 Mg PO DAILYWBKFT 30 Days Duoneb 0.5-3(2.5) Mg/3 Ml (Albuterol/Ipratropium) 3 Ml Ampul.neb 3 Ml NEB RTQID 30 Days Reported Klor-Con 10 (Potassium Chloride) 10 Meq Tablet.er 20 Meq PO DAILY PRN Lasix (Furosemide) 20 Mg Tablet 1 Tab PO DAILY 30 Days Lopressor (Metoprolol Tartrate) 100 Mg Tablet 50 Mg PO BID Nystatin 15 Gm Powder 1 Alberto TP BID Milk Of Magnesia (Magnesium Hydroxide) 400 Mg/5 Ml Oral.susp 400 Mg PO PRN DAILY PRN Mag-Oxide (Magnesium Oxide) 400 Mg Tablet 1 Tab PO BID Miralax (Polyethylene Glycol 3350) 17 Gm Powd.pack 1 Packet PO PRN DAILY PRN Tylenol (Acetaminophen) 325 Mg Tablet 1 Tab PO PRN Q6HRS PRN Famotidine 20 Mg Tablet 20 Mg PO HS Vitals/I & O Vital Sign - Last 24 Hours 10/12/19 10/12/19 10/12/19 10/12/19 12:12 13:01 13:02 13:03 Pulse 71 71 71 B/P (MAP) 134/56 134/56 134/56 O2 Delivery Room Air 10/12/19 10/12/19 10/12/19 10/12/19 15:11 19:00 19:52 21:06 Temp 97.7 98.0 97.7 98.0 Pulse 67 71 71 Resp 18 18 B/P (MAP) 128/74 (92) 119/67 (84) 119/67 Pulse Ox 100 98 O2 Delivery Room Air Room Air Room Air 10/12/19 10/12/19 10/13/19 10/13/19 21:07 23:00 03:00 07:59 Temp 98.3 97.1 98.3 97.1 Pulse 71 63 71 73 Resp 18 18 18 B/P (MAP) 119/67 132/72 (92) 129/82 (98) 134/79 (97) Pulse Ox 100 98 97 O2 Delivery Room Air Room Air Room Air 10/13/19 10/13/19 10/13/19 10/13/19 08:00 08:57 08:57 08:57 Pulse 73 73 73 B/P (MAP) 134/79 134/79 134/79 O2 Delivery Room Air 10/13/19 09:39 Pulse Ox 96 O2 Delivery Room Air Intake and Output 10/12/19 10/12/19 10/13/19 15:00 23:00 07:00 Intake Total 320 ml 150 ml Balance 320 ml 150 ml CARLOS LINDSEY MD Oct 13, 2019 11:33
[2019-10-13] MEDS: ENOXAPARIN 40 MG/0.4 ML SYRINGE. SQ SCH (11:50)
[2019-10-13 11:55] VITALS: BP 132/78
[2019-10-13] MEDS: LORazepam 0.5 MG TABLET PO PRN ×2 (15:19→22:45)
[2019-10-13 15:26] VITALS: BP 121/75
[2019-10-13 19:25] VITALS: BP 110/57
[2019-10-13] MEDS: FAMOTIDINE 20 MG TABLET. PO SCH (22:45)
[2019-10-13 23:20] VITALS: BP 129/72
[2019-10-14 03:45] VITALS: BP 128/68
[2019-10-14] MEDS: IV NORMAL SALINE 1000ML BAG 1,000 ML IV SCH (06:23)
[2019-10-14] MEDS: IPRATRPIUM/ALBUTEROL 0.5/2.5MG 3 ML NEBU. NEB SCH ×3 (07:33→15:34)
[2019-10-14 07:45] VITALS: BP 140/82
[2019-10-14] MEDS: LACTOBACILLUS RHAMNOSUS GG 1 CAPSULE. PO SCH (08:35)
[2019-10-14] MEDS: MAGNESIUM OXIDE 400 MG TABLET PO SCH (08:35)
[2019-10-14] MEDS: ASPIRIN ENTERIC COATED 81 MG TABLET.DR. PO SCH (08:35)
[2019-10-14] MEDS: POTASSIUM CHLORIDE 20 MEQ TABLET.ER. PO SCH (08:35)
[2019-10-14] MEDS: risperiDONE 0.25 MG TABLET. PO SCH (08:35)
[2019-10-14] MEDS: FUROSEMIDE 20 MG TABLET PO SCH (08:35)
[2019-10-14] MEDS: hydrALAZINE 25 MG TABLET PO SCH ×2 (08:36→15:42)
[2019-10-14] MEDS: amLODIPine BESYLATE 10 MG TABLET PO SCH (08:36)
[2019-10-14] MEDS: METOPROLOL TART IMMED RELEASE 50 MG TABLET. PO SCH (08:36)
[2019-10-14] MEDS: NYSTATIN TOPICAL POWDER 15GM BOTTLE. TP SCH (08:37)
--- NOTE | 2019-10-14 09:58 | NUR ---
IP: Pt has a hx of + mrsa screen on 10/15/18 with one documented negative on 09/18/19. Pt also with a hx of mrsa in a R 2nd toe wound on 09/19/19. P to be in contact precautions until there is a second negative screen and no open wounds.
[2019-10-14 11:42] VITALS: BP 105/57
[2019-10-14] MEDS: ENOXAPARIN 40 MG/0.4 ML SYRINGE. SQ SCH (11:55)
--- NOTE | 2019-10-14 13:41 | SNU/HH DC ---
DISCHARGE ORDERS DISCHARGE INFORMATION: DISCHARGE DATE: Oct 14, 2019 FINAL DIAGNOSIS Problems Medical Problems: (1) COPD (chronic obstructive pulmonary disease) Status: Acute CONDITION ON DISCHARGE: Stable CODE STATUS: Code Status: Full LONG-TERM: SNF STAY <30 DAYS: Yes POST DISCHARGE ORDERS: ACTIVITY ORDERS: Activity as tolerated WEIGHT BEARING STATUS: As tolerated BATHING ORDERS: Shower-keep dressing dry DIET AFTER DISCHARGE: Cardiac WOUND/INCISION CARE: Change dressing CHECKS AFTER DISCHARGE: CHECKS AFTER DISCHARGE: Check blood press - daily, Check your Temp as needed FOLLOW-UP: LAB ORDERS FOR FOLLOW-UP: bmp 09/26/19 TREATMENT/EQUIPMENT ORDERS: ADAPTIVE EQUIPMENT NEEDED: None Physical Therapy For: Evalulation/Treatment Occupational Therapy For: Evaluation/Treatment Speech Language Pathology For: Evaluation/Treatment DISCHARGE MEDICATIONS: Home Meds Active Scripts Cefdinir (CEFDINIR) 300 Mg Capsule, 1 CAP PO BID for s/p rt toe gangrene amputation, #14 CAP Prov:RAJIV DIAMOND MD 09/23/19 Hydrocodone Bit/Acetaminophen (HYDROCODONE-APAP 5-325 ) 1 Tab Tablet, 1 TAB PO PRN Q4HRS PRN for PAIN for 5 Days, #15 TAB Prov:RAJIV DIAMOND MD 09/23/19 Lactobacillus Rhamnosus Gg (CULTURELLE) 1 Each Cap.sprink, 1 CAP PO BID for supplement for 30 Days, #60 CAP Prov:CARLOS LINDSEY MD 09/21/19 Docusate Sodium (DOK) 100 Mg Capsule, 100 MG PO PRN BID PRN for HARD STOOLS for 30 Days, #60 CAP Prov:CARLOS LINDSEY MD 09/21/19 Risperidone (RISPERIDONE) 0.25 Mg Tablet, 0.5 MG PO BID for dementia, agitation for 10 Days, #40 TAB Prov:CARLOS LINDSEY MD 09/21/19 Olanzapine (ZYPREXA ZYDIS) 5 Mg Tab.rapdis, 5 MG PO PRN BID PRN for agitation for 30 Days, #30 TAB Prov:JEWEL KNOWLES MD 07/11/19 Albuterol Sulfate (Proventil Hfa) 6.7 Gm Hfa.aer.ad, 1 PUFF INH PRN Q6HRS PRN for SHORTNESS OF BREATH, #1 INHALER Prov:[employer]UN[employer]OL [employer] 03/10/19 Amlodipine Besylate (AMLODIPINE BESYLATE) 10 Mg Tablet, 10 MG PO DAILY for htn MDD 1 for 30 Days, #30 TAB Prov:RAJIV DIAMOND MD 10/22/18 Hydralazine Hcl (HYDRALAZINE HCL) 25 Mg Tablet, 25 MG PO TID for htn MDD 1 for 30 Days, #90 TAB Prov:RAJIV DIAMOND MD 10/22/18 Aspirin (ASPIRIN EC) 81 Mg Tablet.dr, 81 MG PO DAILYWBKFT for 30 Days, #30 TAB.SR Prov:REJI ENG MD 01/03/18 Ipratropium/Albuterol Sulfate (DUONEB 0.5-3(2.5) MG/3 ML) 3 Ml Ampul.neb, 3 ML NEB RTQID for 30 Days, #120 EACH Prov:REJI ENG MD 01/03/18 Reported Medications Potassium Chloride (Klor-Con 10) 10 Meq Tablet.er, 20 MEQ PO DAILY PRN for supplement, TAB.SR 09/18/19 Furosemide (LASIX) 20 Mg Tablet, 1 TAB PO DAILY for chf for 30 Days, #30 TAB 0 Refills 09/18/19 Metoprolol Tartrate (Lopressor) 100 Mg Tablet, 50 MG PO BID for HTN, TAB 07/10/19 Nystatin (NYSTATIN) 15 Gm Powder, 1 UMANG TP BID for excoriation, #1 BOTTLE 10/17/18 Magnesium Hydroxide (MILK OF MAGNESIA) 400 Mg/5 Ml Oral.susp, 400 MG PO PRN DAILY PRN for INDIGESTION, MISC 10/17/18 Magnesium Oxide (MAG-OXIDE) 400 Mg Tablet, 1 TAB PO BID for mag replacement, #60 TAB 5 Refills 10/17/18 Polyethylene Glycol 3350 (MIRALAX) 17 Gm Powd.pack, 1 PACKET PO PRN DAILY PRN for CONSTIPATION, #30 PACKET 3 Refills 03/09/16 Acetaminophen (TYLENOL) 325 Mg Tablet, 1 TAB PO PRN Q6HRS PRN for FEVER, #30 TAB 03/09/16 Famotidine (FAMOTIDINE) 20 Mg Tablet, 20 MG PO HS, TAB 03/05/16 LIANNA BAIG MD Oct 14, 2019 13:41
--- NOTE | 2019-10-14 13:47 | PDOC3 ---
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 essential hypertension HX PSYCHOSIS severe protein-caloric malnutrition Brief Hospital Course Allergies Allergies Coded Allergies Type Severity Reaction Last Updated Verified Penicillins Allergy Intermediate Itching 09/21/19 Yes I S O L A T I O N *CONTACT* Allergy Unknown 10/16/18 Yes Vital Signs Vital Signs Date Time Temp Pulse Resp B/P (MAP) Pulse Ox O2 Delivery O2 Flow Rate FiO2 10/14/19 11:42 97.5 90 18 105/57 (73) 69 Room Air 97.5 Lab Results Laboratory Tests Test 10/12/19 20:57 10/13/19 07:51 10/13/19 11:03 10/13/19 12:10 Glucose (Fingerstick) 120 mg/dL (70-99) 101 mg/dL (70-99) 96 mg/dL (70-99) Ionized Calcium 1.17 mmol/L (1.13-1.32) Test 10/13/19 16:26 10/13/19 21:46 10/14/19 07:44 10/14/19 10:49 Glucose (Fingerstick) 117 mg/dL (70-99) 136 mg/dL (70-99) 92 mg/dL (70-99) 115 mg/dL (70-99) Test 10/14/19 11:55 Creatine Kinase 47 U/L (39-308) Vitamin B12 Level 307 pg/mL (247-911) Laboratory Tests Test 10/13/19 16:26 10/13/19 21:46 10/14/19 07:44 10/14/19 10:49 Glucose (Fingerstick) 117 mg/dL (70-99) 136 mg/dL (70-99) 92 mg/dL (70-99) 115 mg/dL (70-99) Test 10/14/19 11:55 Creatine Kinase 47 U/L (39-308) Vitamin B12 Level 307 pg/mL (247-911) Brief Hospital Course [facility] [address], [place] [address] PHYSICIAN SERVICES History & Physical : [id number] Signed Patient: DARYL DEMARCO Acct:[id number] Unit: [id number] : 1935 Loc: [address] [place] [address] Room/ Bed: [facility] Age/Sex: 84 / M ADM Status: ADM IN ADM Date: 10/11/19 History and Physical Date of Admission Date of Admission DATE: 10/12/19 TIME: 10:08 Identification/Chief Complaint Chief Complaint seen in er post fall, 84-year-old male with underlying history of COPD, hypertension presents to the emergency department after fall. Patient complains of right wrist and arm pain. There is bruising appreciated Unsure when the fall took place. Patient is more altered than usual according to EMS as well as nursing. // expiratory wheeze appreciated. //able to answer some questions appropriately however keeps his eyes closed. Patient denies any chest pain, abdominal pain, + SOB on exam. He does have chronic lower extremity wounds appreciated. CA LOW Mr. Demarco is a 84 year old male with the above mentioned comorbidities. He was admitted due to reports of altered mental status and severe severe electrolyte disturbances that were corrected while he was inpatient. The patient came back to his baseline and he was evaluated by neurology who recommended a CAT scan of the head with negative results is evidence below on this report. He was deemed appropriate for discharge and no changes were made to his medications. Patient is a very high risk for readmission due to the multitude of medical problems he is afflicted with. Assessment Assessment CT head IMPRESSION: 1. Taking into consideration motion degradation, no acute intracranial abnormality is seen by CT. 2. Chronic findings to include a region of cortical/subcortical low-attenuation overlying the right lateral ventricle occipital horn are not significantly different from the prior. Electronically signed by: DEXTER COBURN MD (10/11/2019 8:10 PM) [id number] Discharge Information Condition at Discharge: Improved Follow Up: Weeks Disposition/Orders: D/C to Another Facility Scheduled Amlodipine Besylate (Amlodipine Besylate) 10 Mg Tablet, 10 MG PO DAILY for htn MDD 1 for 30 Days, #30 Prescribed by: RAJIV DIAMOND on 10/22/18 0804 Last Action: Continued on 10/12/191122 by CARLOS LINDSEY MD Aspirin (Aspirin Ec) 81 Mg Tablet.dr, 81 MG PO DAILYWBKFT for 30 Days, #30 Prescribed by: REJI ENG on 01/03/18 120 Last Action: Continued on 10/12/191122 by CARLOS LINDSEY MD Famotidine (Famotidine) 20 Mg Tablet, 20 MG PO HS, (Reported) Entered as Reported by: JARON HELTON on 03/05/16 0901 Last Action: Continued on 10/12/191122 by CARLOS LINDSEY MD Furosemide (Lasix) 20 Mg Tablet, 1 TAB PO DAILY for chf for 30 Days, #30 Ref 0 (Reported) Entered as Reported by: JENS ROMERO on 09/18/19 1818 Last Action: Continued on 10/12/191122 by CARLOS LINDSEY MD Hydralazine Hcl (Hydralazine Hcl) 25 Mg Tablet, 25 MG PO TID for htn MDD 1 for 30 Days, #90 Prescribed by: RAJIV DIAMOND on 10/22/18 0804 Last Action: Continued on 10/12/191122 by CARLOS LINDSEY MD Ipratropium/Albuterol Sulfate (Duoneb 0.5-3(2.5) Mg/3 Ml) 3 Ml Ampul.neb, 3 ML NEB RTQID for 30 Days, #120 Prescribed by: REJI ENG on 01/03/18 1207 Last Action: Continued on 10/12/191122 by CARLOS LINDSEY MD Lactobacillus Rhamnosus Gg (Culturelle) 1 Each Cap.sprink, 1 CAP PO BID for supplement for 30 Days, #60 Prescribed by: CARLOS LINDSEY MD on 09/21/19 1308 Last Action: Continued on 10/12/191122 by CARLOS LINDSEY MD Magnesium Oxide (Mag-Oxide) 400 Mg Tablet, 1 TAB PO BID for mag replacement, #60 Ref 5 (Reported) Entered as Reported by: RANJIT BILLY on 10/17/18 135 Last Action: Converted on 10/12/191122 by CARLOS LINDSEY MD Metoprolol Tartrate (Lopressor) 100 Mg Tablet, 50 MG PO BID for HTN, (Reported) Entered as Reported by: RONNA CHEN on 07/10/197 Last Action: Converted on 10/12/191122 by CARLOS LINDSEY MD Nystatin (Nystatin) 15 Gm Powder, 1 UMANG TP BID for excoriation, #1 (Reported) Entered as Reported by: RANJIT BILLY on 10/17/18 135 Last Action: Continued on 10/12/191122 by CARLOS LINDSEY MD Risperidone (Risperidone) 0.25 Mg Tablet, 0.5 MG PO BID for dementia, agitation for 10 Days, #40 Prescribed by: CARLOS LINDSEY MD on 09/21/19 1308 Last Action: Continued on 10/12/191122 by CARLOS LINDSEY MD Scheduled PRN Acetaminophen (Tylenol) 325 Mg Tablet, 1 TAB PO PRN Q6HRS PRN for FEVER, #30 (Reported) Entered as Reported by: GIRISH CROWDER on 03/09/16 1532 Last Action: Continued on 10/12/191122 by CARLOS LINDSEY MD Albuterol Sulfate (Proventil Hfa) 6.7 Gm Hfa.aer.ad, 1 PUFF INH PRN Q6HRS PRN for SHORTNESS OF BREATH, #1 Prescribed by: Cait Benjamin APRN on 03/10/19 191 Last Action: Converted on 10/12/191122 by CARLOS LINDSEY MD Docusate Sodium (Dok) 100 Mg Capsule, 100 MG PO PRN BID PRN for HARD STOOLS for 30 Days, #60 Prescribed by: CARLOS LINDSEY MD on 09/21/19 1308 Last Action: Continued on 10/12/191122 by CARLOS LINDSEY MD Hydrocodone Bit/Acetaminophen (Hydrocodone-Apap 5-325 ) 1 Tab Tablet, 1 TAB PO PRN Q4HRS PRN for PAIN for 5 Days, #15 Prescribed by: RAJIV DIAMOND on 09/23/19 0840 Last Action: HELD on 10/12/191122 by CARLOS LINDSEY MD Magnesium Hydroxide (Milk Of Magnesia) 400 Mg/5 Ml Oral.susp, 400 MG PO PRN DAILY PRN for INDIGESTION, (Reported) Entered as Reported by: RANJIT BILLY on 10/17/18 1352 Last Action: Continued on 10/12/191122 by CARLOS LINDSEY MD Olanzapine (Zyprexa Zydis) 5 Mg Tab.rapdis, 5 MG PO PRN BID PRN for agitation for 30 Days, #30 Prescribed by: JEWEL KNOWLES MD on 07/11/19 1305 Last Action: Continued on 10/12/191122 by CARLOS LINDSEY MD Polyethylene Glycol 3350 (Miralax) 17 Gm Powd.pack, 1 PACKET PO PRN DAILY PRN for CONSTIPATION, #30 Ref 3 (Reported) Entered as Reported by: GIRISH CROWDER on 03/09/16 1533 Last Action: Continued on 10/12/191122 by CARLOS LINDSEY MD Potassium Chloride (Klor-Con 10) 10 Meq Tablet.er, 20 MEQ PO DAILY PRN for supplement, (Reported) Entered as Reported by: JENS ROMERO on 09/18/19 1821 Last Action: Converted on 10/12/191122 by CARLOS LINDSEY MD Discontinued Medications Cefdinir (Cefdinir) 300 Mg Capsule, 1 CAP PO BID for s/p rt toe gangrene amputation, #14 Prescribed by: RAJIV DIAMOND on 09/23/19 0840 Last Action: HELD on 10/12/191122 by MD SAFIA SMITH HECTOR M MD Oct 14, 2019 13:47
--- NOTE | 2019-10-14 15:38 | RAD ---
CT CERVICAL SPINE WO CONTRAST DATE: 10/14/2019 11:29 AM INDICATION: Fall, pain TECHNIQUE: Noncontrast CT of the cervical spine was performed. Sagittal and coronal reformats were performed and evaluated. One or more of the following dose reduction techniques were utilized: Automated exposure control (AEC), Adjustment of mA and/or kV according to patient size, Use of iterative reconstruction technique such as ASiR, CT scan done according to ALARA and image gently/image wisely COMPARISON: None. FINDINGS: The cervical spine is normally aligned. No acute fracture. No aggressive lytic or blastic osseous lesions. Mild to moderate multilevel degenerative disc space height loss. Multilevel mild spinal canal stenosis secondary to disc protrusions and marginal osteophytes. Multilevel mild and moderate neuroforaminal narrowing secondary to uncovertebral arthrosis. Multilevel mild and moderate facet arthrosis. The thyroid gland is normal. No cervical lymphadenopathy. Bilateral carotid atherosclerosis. The visualized aerodigestive tract is normal. Mild biapical subpleural fibrosis. IMPRESSION: No acute fracture or dislocation. Electronically signed by: Marvin Wagner MD (10/14/2019 3:35 PM) [id number]
[2019-10-14] MEDS: LORazepam 0.5 MG TABLET PO PRN (15:41)
[2019-10-14 15:48] VITALS: BP 134/78
--- NOTE | 2019-10-14 16:02 | PDOC2 ---
NEUROLOGY CONSULT Date of Admission Date of Admission DATE: 10/14/19 TIME: 15:43 Reason for Consult Reason for Consult: IMPRESSION: Fall. Right wrist injury. Hypokalemia, K+ 2.6. Hypocalcemia, Ca++ 5.5. PAD. Right LE (toes) necrotic changes and osteomyelitis. AFib. CAD., s/p HI. HTN. HLD. COPD Peripheral neuropathy. Degenerative C-spine disease. Obesity. RECOMMENDATIONS/PLAN: Treat medical diseases. Correct electrolytes imbalances. CCT no acute findings. HCT unremarkable. Lab: see orders. OT/PT. FU with [facility] team. HISTORY OF THE PRESENT ILLNESS: This is an 84-year-old AA male patient with above medical and cardiac diseases h ad a fall which resulted in soft tissue injury in hie right wrist and hand. He was brought to the ER of [facility] for further evaluation after fall. He complained pain in his right wrist and hand that is bruising. Past Medical History Past Medical History: A-Fib, Anemia, CAD, COPD, GERD, High Cholesterol, Heart Disease, HI, H/A, OBESITY, SOKAOGON, BPH,AMS,LYM PHEDEMA,MDD,PSYCHOSIS,NSTEMI,DYSPHAGIA FHX OBESITY Cardiovascular: CAD, CHF, HTN, Hyperlipidemia, Other Pulmonary: COPD, Pneumonia CENTRAL NERVOUS SYSTEM: Dementia GI: GERD, Other Heme/Onc: Anemia NOS Psych: Depression, Other Musculoskeletal: Osteoarthritis, Weakness Rheumatologic: Other Renal/: Chronic renal insuff, Benign prostatic enlarg. Past Surgical History Appendectomy, Pacemaker, Hernia repair. Family History Heart Disease, Hypertension Social History Smoke: Former smoker. ALCOHOL: none Drugs: None Allergies Coded Allergies: Penicillins (Verified Allergy, Intermediate, Itching, 09/21/19) Tolerates zosyn, augmentin I S O L A T I O N *CONTACT* (Verified Allergy, Unknown, 10/16/18), mrsa MEDICATIONS: Refer to [facility] REVIEW OF SYSTEMS: Constitutional: No malnutrition, weight loss, cachexia. Head: No traumatic brain or head injury. Skin: No edema, or rash. Ear: No infection. Eyes: No vision loss or color blindness. Nose: No bleeding or purulent discharges. Hearing: Hearing decrease. Neck: No injury. Cardiac: HI, CAD, AFib, HTN, HLD, PVD. Pulmonary: COPD. GI: No GI ulcer, GI bleeding. Urinary/genital: UTI. Endocrinologic: Diabetes Mellitus, obesity. Skeletomuscular: LE osteomyelitis. Neurological: see HP. Psychiatric: Denies drug use/abuse. Otherwise, not [id number] review of systems. PHYSICAL EXAMINATION: General appearance is in subacute distress. HEENT: Normocephalic and nontraumatic. Eyes, nose, ears, and throat are unremarkable. Neck is supple. No lymphadenopathy. No crepitus. Cardiovascular: S1, S2, regular rate and rhythm. Pulmonary: Clear to auscultation bilaterally. Abdomen: Bowel sounds are positive. Extremities: No rash, lesions, or edema. No restriction of range of motion NEUROLOGICAL EXAMINATION: Awake. Not fully oriented to time, place and person. PERRL. EOMI. CN: no focal findings. Muscle tone: within normal. Muscle strength: 5 UE, 4+ LE DTR: 2 UE, 0-1 at knee. Plantar reflex: Neutral response bilaterally Gait: not examined in bed. Sensory exam: no acute abnormal findings. No cerebellar signs elicited. F-T-N test fine. Current Medications Current Medications Current Medications Sodium Chloride 1,000 ml @ 1,000 mls/hr Q1H IV Last administered on 10/11/19at 20:54; Start 10/11/19 at 20:00; Stop 10/11/19 at 20:59; Status DC Albuterol/ Ipratropium (Duoneb) 3 ml 1X ONCE NEB Last administered on 10/11/19at 20:07; Start 10/11/19 at 20:00; Stop 10/11/19 at 20:01; Status DC Methylprednisolone Sodium Succinate (SOLU-Medrol 125MG VIAL) 125 mg 1X ONCE IV Last administered on 10/11/19at 20:58; Start 10/11/19 at 20:30; Stop 10/11/19 at 20:31; Status DC Calcium Gluconate (Calcium Gluconate) 1,000 mg 1X ONCE IVP ; Start 10/11/19 at 23:00; Stop 10/11/19 at 23:01; Status DC Potassium Chloride/Water 100 ml @ 50 mls/hr 1X ONCE IV ; Start 10/11/19 at 22:30; Stop 10/12/19 at 00:29; Status UNV Potassium Chloride/Water 100 ml @ 100 mls/hr Q1H IV Last administered on 10/12/19at 00:00; Start 10/11/19 at 23:00; Stop 10/12/19 at 00:59; Status DC Ondansetron HCl (Zofran) 4 mg PRN Q8HRS PRN IV NAUSEA/VOMITING 1ST CHOICE; Start 10/11/19 at 22:45; Stop 10/12/19 at 11:33; Status DC Acetaminophen (Tylenol) 650 mg PRN Q4HRS PRN PO FEVER; Start 10/11/19 at 22:45; Stop 10/12/19 at 22:44; Status DC Albuterol/ Ipratropium (Duoneb) 3 ml RTQID NEB Last administered on 10/12/19at 08:00; Start 10/12/19 at 08:00; Stop 10/12/19 at 11:28; Status DC Acetaminophen (Tylenol) 325 mg PRN Q6HRS PRN PO FEVER; Start 10/12/19 at 11:30; Stop 10/12/19 at 11:34; Status DC Amlodipine Besylate (Norvasc) 10 mg DAILY PO Last administered on 10/14/19at 08:36; Start 10/12/19 at 12:00 Aspirin (Ecotrin) 81 mg DAILYWBKFT PO Last administered on 10/14/19at 08:35; Start 10/12/19 at 12:00 Docusate Sodium (Colace) 100 mg PRN BID PRN PO HARD STOOLS; Start 10/12/19 at 11:30 Famotidine (Pepcid) 20 mg HS PO Last administered on 10/13/19at 22:45; Start 10/12/19 at 21:00 Furosemide (Lasix) 20 mg DAILY PO Last administered on 10/14/19at 08:35; Start 10/12/19 at 12:00 Hydralazine HCl (Apresoline) 25 mg TID PO Last administered on 10/14/19at 08:36; Start 10/12/19 at 14:00 Albuterol/ Ipratropium (Duoneb) 3 ml RTQID NEB Last administered on 10/14/19at 11:10; Start 10/12/19 at 12:00 Lactobacillus Rhamnosus (Culturelle) 1 cap BID PO Last administered on 10/14/19at 08:35; Start 10/12/19 at 12:00 Magnesium Hydroxide (Milk Of Magnesia) 400 mg PRN DAILY PRN PO INDIGESTION; Start 10/12/19 at 11:30 Nystatin (Nystop) 1 alberto BID TP Last administered on 10/14/19at 08:37; Start 10/12/19 at 12:00 Olanzapine (ZyPREXA ZYDIS) 5 mg PRN BID PRN PO agitation; Start 10/12/19 at 11:30 Polyethylene Glycol (miraLAX PACKET) 17 gm PRN DAILY PRN PO CONSTIPATION; Start 10/12/19 at 11:30 Risperidone (RisperDAL) 0.5 mg BID PO Last administered on 10/14/19at 08:35; Start 10/12/19 at 12:00 Albuterol Sulfate (Ventolin Neb Soln) 2.5 mg PRN Q6HRS PRN NEB SHORTNESS OF BREATH; Start 10/12/19 at 11:45 Magnesium Oxide (Magnesium Oxide) 400 mg BID PO Last administered on 10/14/19at 08:35; Start 10/12/19 at 12:00 Metoprolol Tartrate (Lopressor) 50 mg BID PO Last administered on 10/14/19at 08:36; Start 10/12/19 at 12:00 Potassium Chloride (Klor-Con) 20 meq DAILYWBKFT PO Last administered on 10/14/19at 08:35; Start 10/12/19 at 12:00 Sodium Chloride (Normal Saline Flush) 3 ml QSHIFT PRN IV AFTER MEDS AND BLOOD DRAWS; Start 10/12/19 at 11:30 Sodium Chloride 1,000 ml @ 70 mls/hr [id number] IV Last administered on 10/12/19at 12:58; Start 10/12/19 at 11:29 Ondansetron HCl (Zofran) 4 mg PRN Q4HRS PRN IV NAUSEA/VOMITING; Start 10/12/19 at 11:30 Acetaminophen (Tylenol) 650 mg PRN Q4HRS PRN PO TEMP OVER 100.4F OR MILD PAIN; Start 10/12/19 at 11:30 Clonidine HCl (Catapres) 0.1 mg PRN Q6HRS PRN PO SBP>160 OR DBP>90; Start 10/12/19 at 11:30 Docusate Sodium (Colace) 100 mg PRN BID PRN PO CONSTIPATION; Start 10/12/19 at 11:30; Status UNV Guaifenesin (Robitussin) 200 mg PRN Q4HRS PRN PO COUGH; Start 10/12/19 at 11:30 Lorazepam (Ativan) 0.5 mg PRN Q4HRS PRN PO ANXIETY / AGITATION Last administered on 10/13/19at 22:45; Start 10/12/19 at 11:30 Enoxaparin Sodium (Lovenox 40mg Syringe) 40 mg Q24H SQ Last administered on 10/14/19at 11:55; Start 10/12/19 at 12:00 Haloperidol Lactate (Haldol Inj) 3 mg 1X ONCE IM ; Start 10/12/19 at 21:30; Stop 10/12/19 at 21:31; Status DC Active Scripts Active Hydrocodone-Apap 5-325 (Hydrocodone Bit/Acetaminophen) 1 Tab Tablet 1 Tab PO PRN Q4HRS PRN 5 Days Culturelle (Lactobacillus Rhamnosus Gg) 1 Each Cap.sprink 1 Cap PO BID 30 Days Dok (Docusate Sodium) 100 Mg Capsule 100 Mg PO PRN BID PRN 30 Days Risperidone 0.25 Mg Tablet 0.5 Mg PO BID 10 Days Zyprexa Zydis (Olanzapine) 5 Mg Tab.rapdis 5 Mg PO PRN BID PRN 30 Days Proventil Hfa (Albuterol Sulfate) 6.7 Gm Hfa.aer.ad 1 Puff INH PRN Q6HRS PRN Amlodipine Besylate 10 Mg Tablet 10 Mg PO DAILY MDD 1 30 Days Hydralazine Hcl 25 Mg Tablet 25 Mg PO TID MDD 1 30 Days Aspirin Ec (Aspirin) 81 Mg Tablet.dr 81 Mg PO DAILYWBKFT 30 Days Duoneb 0.5-3(2.5) Mg/3 Ml (Albuterol/Ipratropium) 3 Ml Ampul.neb 3 Ml NEB RTQID 30 Days Reported Klor-Con 10 (Potassium Chloride) 10 Meq Tablet.er 20 Meq PO DAILY PRN Lasix (Furosemide) 20 Mg Tablet 1 Tab PO DAILY 30 Days Lopressor (Metoprolol Tartrate) 100 Mg Tablet 50 Mg PO BID Nystatin 15 Gm Powder 1 Alberto TP BID Milk Of Magnesia (Magnesium Hydroxide) 400 Mg/5 Ml Oral.susp 400 Mg PO PRN DAILY PRN Mag-Oxide (Magnesium Oxide) 400 Mg Tablet 1 Tab PO BID Miralax (Polyethylene Glycol 3350) 17 Gm Powd.pack 1 Packet PO PRN DAILY PRN Tylenol (Acetaminophen) 325 Mg Tablet 1 Tab PO PRN Q6HRS PRN Famotidine 20 Mg Tablet 20 Mg PO HS Allergies Allergies: Allergies Coded Allergies Type Severity Reaction Last Updated Verified Penicillins Allergy Intermediate Itching 09/21/19 Yes I S O L A T I O N *CONTACT* Allergy Unknown 10/16/18 Yes ROS Review of System The patient denies any associated fevers, chills, headache, ear pain, rhinorrhea, sore throat, stiff neck, productive cough, chest pain, shortness of breath, back or flank pain, abdominal pain, nausea, vomiting, diarrhea, constipation, dysuria, rash, numbness, weakness, tingling, incontinence, difficulty ambulating, or diaphoresis. Physical Exam Physical Exam General: Well developed, well nourished, no acute distress, well appearing HEENT: Pupils equally round and reactive to light, EOMI, no discharge, normal conjunctiva Neck: Supple, no nuchal rigidity, no JVD, trachea midline, no tenderness Cardiac: RRR, no murmurs, no gallops, no rubs Chest/Lungs: CTAB, no wheeze, no rhonchi, no crackles Abdomen: soft, non-distended, no guarding, no peritoneal signs, non-tender Back: No tenderness Extremities: no edema, pulses intact, non-tender,capillary refill <3 sec bilateral upper and lower extremities, Neuro: Alert and oriented x 4, no focal deficits, normal speech Vitals Vitals: Vital Signs Date Time Temp Pulse Resp B/P (MAP) Pulse Ox O2 Delivery O2 Flow Rate FiO2 10/14/19 11:42 97.5 90 18 105/57 (73) 69 Room Air 97.5 Labs Labs Laboratory Tests Test 10/12/19 20:57 10/13/19 07:51 10/13/19 11:03 10/13/19 12:10 Glucose (Fingerstick) 120 mg/dL (70-99) 101 mg/dL (70-99) 96 mg/dL (70-99) Ionized Calcium 1.17 mmol/L (1.13-1.32) Test 10/13/19 16:26 10/13/19 21:46 10/14/19 07:44 10/14/19 10:49 Glucose (Fingerstick) 117 mg/dL (70-99) 136 mg/dL (70-99) 92 mg/dL (70-99) 115 mg/dL (70-99) Test 10/14/19 11:55 Creatine Kinase 47 U/L (39-308) Vitamin B12 Level 307 pg/mL (188-911) Laboratory Tests Test 10/13/19 16:26 10/13/19 21:46 10/14/19 07:44 10/14/19 10:49 Glucose (Fingerstick) 117 mg/dL (70-99) 136 mg/dL (70-99) 92 mg/dL (70-99) 115 mg/dL (70-99) Test 10/14/19 11:55 Creatine Kinase 47 U/L (39-308) Vitamin B12 Level 307 pg/mL (560-911) NUVIA NELSON MD Oct 14, 2019 16:01
--- NOTE | 2019-10-14 17:34 | NUR ---
Discharge Note: PT DISCHARGED TO [facility] FACILITY. PT LEFT FACILITY VIA TRANSPORT STAFF AT 1715. PT STABLE AND ALERT TO SELF UPON DISCHARGE. PT HAD NO IV ACCESS TO REMOVE. REPORT CALLED TO [facility] aT 1610. NO CONCERNS VOICED AT THIS TIME. PT DID NOT HAVE ANY PERSONAL BELONGINGS IN ROOM UPON DISCHARGE. DARYL WEBSTER Discharge instructions and discharge home medications reviewed with Patient and a copy given. All questions have been answered and understanding verbalized.
== END 2019-10-14 17:15 | disposition home or self-care (01) | DRG 640 ==
LOC: ER 19:19 → 6 SOUTH 22:47
PROVIDERS: ADMIT Internal Medicine; ATTEND Internal Medicine
DX: E87.6 Hypokalemia (principal); G93.41 Metabolic encephalopathy; E43 Unspecified severe protein-calorie malnutrition; I13.0 Hypertensive heart and chronic kidney disease with heart failure and stage 1 through stage 4 chronic kidney disease, or unspecified chronic kidney disease; I70.261 Atherosclerosis of native arteries of extremities with gangrene, right leg; E83.51 Hypocalcemia; I25.10 Atherosclerotic heart disease of native coronary artery without angina pectoris; J44.9 Chronic obstructive pulmonary disease, unspecified; K21.9 Gastro-esophageal reflux disease without esophagitis; F32.9 Major depressive disorder, single episode, unspecified; N40.0 Benign prostatic hyperplasia without lower urinary tract symptoms; E78.00 Pure hypercholesterolemia, unspecified; N18.9 Chronic kidney disease, unspecified; F03.90 Unspecified dementia, unspecified severity, without behavioral disturbance, psychotic disturbance, mood disturbance, and anxiety; E78.5 Hyperlipidemia, unspecified; E66.01 Morbid (severe) obesity due to excess calories; I48.91 Unspecified atrial fibrillation; G62.9 Polyneuropathy, unspecified; I50.9 Heart failure, unspecified; W18.30XA Fall on same level, unspecified, initial encounter; Y93.89 Activity, other specified; Y92.89 Other specified places as the place of occurrence of the external cause; Y99.8 Other external cause status; Z68.38 Body mass index [BMI] 38.0-38.9, adult; Z89.421 Acquired absence of other right toe(s); Z90.49 Acquired absence of other specified parts of digestive tract; I25.2 Old myocardial infarction; Z87.891 Personal history of nicotine dependence; Z95.0 Presence of cardiac pacemaker; Z88.0 Allergy status to penicillin; Z88.8 Allergy status to other drugs, medicaments and biological substances; Z84.89 Family history of other specified conditions; Z82.49 Family history of ischemic heart disease and other diseases of the circulatory system
CPT/HCPCS: 36415; 36600; 70450; 72125; 73100; 80053; 82310; 82550; 82607; 82805; 82962; 83605; 85025; 93005; 94640; 94760; J1650; J2930; J3480; J7030; J7620; G0378

== ENCOUNTER 2019-11-06 12:54 | Emergency (ER) | payer MEDICARE, MEDICAID ==
[~2019-11-06] VITALS: Ht 172.7 cm; Wt 136.3 kg
--- NOTE | 2019-11-06 13:25 | PHYS DOC ---
Past Medical History Past Medical History: A-Fib, Anemia, GERD, High Cholesterol Additional Past Medical Histor: H/A, OBESITY, MUCKLESHOOT, BPH,AMS,LYMP HEDEMA,MDD,PSYCHOSIS,NSTEMI,DYSPHAGIA Past Surgical History: Appendectomy, Pacemaker, Other Additional Past Surgical Histo: Hernia Smoking Status: Unknown if ever smoked Alcohol Use: None Drug Use: None Adult General Chief Complaint Chief Complaint: ALTERED MENTAL STATUS [facility] HPI Patient is a 84 year old male who presents from [facility], with altered level of conscious. Patient reportedly was found to be more confused than normal approximately 1215 today. EMS received report from facility, reporting patient had recent been treated for UTI, has had no fevers. Patient does have history of dementia, patient was reported to normally be awake and alert, however today is less responsive than normal. When asked, patient provides little verbal response, only saying yes does follow some commands. Patient had just completed course of Cipro for his UTI. Review of Systems Review of Systems Constitutional: Denies fever or chills [] Respiratory: No reported cough or shortness of breath [] Cardiovascular: No additional information not addressed in HPI [] GI: Patient denies abdominal pain, nausea, vomiting, bloody stools or diarrhea [] : patient does reportedly have history of recent UTI [] Musculoskeletal: Patient denies any musculoskeletal discomfort Integument: Patient reported to have chronic foot lesions bilaterally Neurologic: Patient reported with decreased level consciousness today [] All other systems were reviewed and found to be within normal limits, except as documented in this note. Current Medications Current Medications Current Medications Medications (Trade) Dose Ordered Sig/Katrina Start Time Stop Time Status Last Admin Dose Admin Albuterol/ Ipratropium (Duoneb) 3 ml 1X ONCE 11/06/19 13:30 11/06/19 13:31 DC 11/06/19 13:54 3 ML Sodium Chloride 1,000 ml @ 250 mls/hr 1X ONCE 11/06/19 13:30 11/06/19 17:29 DC 11/06/19 13:30 250 MLS/HR Allergies Allergies Allergies Coded Allergies Type Severity Reaction Last Updated Verified Penicillins Allergy Intermediate Itching 09/21/19 Yes I S O L A T I O N *CONTACT* Allergy Unknown 10/16/18 Yes Physical Exam Physical Exam Constitutional: Well developed, well nourished, no acute distress, non-toxic appearance. Obese, lethargic but awakens to command [] HENT: Normocephalic, atraumatic, bilateral external ears normal, oropharynx dry, no oral exudates, nose normal. [] Eyes: PERRLA, EOMI, conjunctiva normal, no discharge. Pupils 2 mm bilaterally [] Neck: Normal range of motion, no tenderness, supple, no stridor. [] Cardiovascular:Heart rate regular rhythm, no murmur [] Lungs & Thorax: Wheezing noted to left sided chest Abdomen: Bowel sounds normal, soft, no tenderness, no masses, no pulsatile masses. Abdomen round [] Skin: Warm, dry, no erythema, no rash. Lesions noted to bilateral lower extremities, [] Extremities: No tenderness, no cyanosis, no edema. [] Neurologic: Awakens to verbal response, patient oriented to self and place, known history of dementia, no focal deficits noted. [] Current Patient Data Vital Signs Vital Signs Date Time Temp Pulse Resp B/P (MAP) Pulse Ox O2 Delivery O2 Flow Rate FiO2 11/06/19 17:50 68 20 97 11/06/19 13:54 Room Air 11/06/19 12:55 98.0 130/73 (92) 98.0 Lab Values Laboratory Tests Test 11/06/19 13:15 11/06/19 13:40 11/06/19 14:35 White Blood Count 8.5 x10^3/uL (4.0-11.0) Red Blood Count 3.89 x10^6/uL (4.30-5.70) L Hemoglobin 12.9 g/dL (13.0-17.5) L Hematocrit 37.9 % (39.0-53.0) L Mean Corpuscular Volume 97 fL (79-100) Mean Corpuscular Hemoglobin 33 pg (25-35) Mean Corpuscular Hemoglobin Concent 34 g/dL (31-37) Red Cell Distribution Width 16.1 % (11.5-14.5) H Platelet Count 186 x10^3/uL (140-400) Neutrophils (%) (Auto) 65 % (31-73) Lymphocytes (%) (Auto) 10 % (24-48) L Monocytes (%) (Auto) 16 % (0-9) H Eosinophils (%) (Auto) 8 % (0-3) H Basophils (%) (Auto) 0 % (0-3) Neutrophils # (Auto) 5.5 x10^3/uL (1.8-7.7) Lymphocytes # (Auto) 0.8 x10^3/uL (1.0-4.8) L Monocytes # (Auto) 1.4 x10^3/uL (0.0-1.1) H Eosinophils # (Auto) 0.7 x10^3/uL (0.0-0.7) Basophils # (Auto) 0.0 x10^3/uL (0.0-0.2) Prothrombin Time 13.2 SEC (11.7-14.0) Prothrombin Time INR 1.0 (0.8-1.1) Lactic Acid Level 1.4 mmol/L (0.4-2.0) Urine Collection Type Unknown Urine Color Yellow Urine Clarity Clear Urine pH 5.5 (<5.0-8.0) Urine Specific [place] 1.015 (1.000-1.030) Urine Protein Negative mg/dL (NEG-TRACE) Urine Glucose (UA) Negative mg/dL (NEG) Urine Ketones (Stick) Negative mg/dL (NEG) Urine Blood Negative (NEG) Urine Nitrite Negative (NEG) Urine Bilirubin Negative (NEG) Urine Urobilinogen Dipstick 0.2 mg/dL (0.2 mg/dL) Urine Leukocyte Esterase Negative (NEG) Urine RBC 0 /HPF (0-2) Urine WBC Occ /HPF (0-4) Urine Bacteria 0 /HPF (0-FEW) Urine Mucus Slight /LPF Sodium Level 146 mmol/L (136-145) H Potassium Level 4.3 mmol/L (3.5-5.1) Chloride Level 111 mmol/L (98-107) H Carbon Dioxide Level 25 mmol/L (21-32) Anion Gap 10 (6-14) Blood Urea Nitrogen 26 mg/dL (8-26) Creatinine 1.5 mg/dL (0.7-1.3) H Estimated GFR (Cockcroft-Gault) 54.1 BUN/Creatinine Ratio 17 (6-20) Glucose Level 88 mg/dL (70-99) Calcium Level 9.1 mg/dL (8.5-10.1) Magnesium Level 2.5 mg/dL (1.8-2.4) H Total Bilirubin 0.4 mg/dL (0.2-1.0) Aspartate Amino Transferase (AST) 17 U/L (15-37) Alanine Aminotransferase (ALT) 9 U/L (16-63) L Alkaline Phosphatase 107 U/L (46-116) Troponin I Quantitative < 0.017 ng/mL (0.000-0.055) OV-Nbe-I-Type Natriuretic Peptide 1634 pg/mL (0-449) H Total Protein 6.9 g/dL (6.4-8.2) Albumin 2.5 g/dL (3.4-5.0) L Albumin/Globulin Ratio 0.6 (1.0-1.7) L Laboratory Tests 11/06/19 13:15 Laboratory Tests 11/06/19 14:35 EKG EKG Sinus rhythm with occasional PVC, wide complex. no STEMI per Dr Howard. [] Radiology/Procedures Radiology/Procedures []CHEST AP ONLY History: Altered level of consciousness. Comparison: July 03, 2019 Findings: No consolidation or pleural effusion. Unchanged heart size. No pneumothorax. Left-sided pacemaker, unchanged. Bilateral glenohumeral DJD. Impression: 1. No acute cardiopulmonary process. Electronically signed by: Sravan Estrada DO (11/06/2019 1:49 PM) [id number] Findings: Moderate generalized cerebral and cerebellar volume loss. Moderate nonspecific periventricular hypoattenuation, most commonly seen with chronic small vessel ischemic disease. Calcified atherosclerosis of the bilateral cavernous and paraclinoid internal carotid arteries and intracranial vertebral arteries. Small area of right occipital encephalomalacia. No intra- or extra-axial mass or fluid collection. No acute hemorrhage. The ventricles are normal in size, shape, and morphology. The pierre-white matter junction is normal. The subarachnoid cisterns are patent. The visualized paranasal sinuses are normal. The visualized portions of the orbits and globes are normal. The mastoid air cells are clear. The manager contract topogram shows no lytic lesion or fracture. Impression: No acute intracranial process. Moderate cerebral volume loss. Moderate chronic small vessel ischemic disease. Electronically signed by: Marvin Wagner MD (11/06/2019 2:29 PM) [facility] Course & Med Decision Making Course & Med Decision Making Pertinent Labs and Imaging studies reviewed. (See chart for details) [Patient padmini awake in room, continues to answer questions, no apparent dis tress. Following hydration, will plan to discharge patient back to facility] Andi Disclaimer Dragon Disclaimer This electronic medical record was generated, in whole or in part, using a voice recognition dictation system. Departure Departure Impression: Primary Impression: AMS (altered mental status) Additional Impressions: Hyperchloremia Hypernatremia Disposition: 03 TRANSFER SNF Condition: GOOD Referrals: SILAS PINTO MD (PCP) Patient Instructions: Dehydration, Elderly Additional Instructions: Continue his home medications as per normal. Follow-up with his primary care provider as needed. Problem Qualifiers Primary Impression: AMS (altered mental status) Altered mental status type: transient alteration of awareness Qualified Codes: R40.4 - Transient alteration of awareness PRACHI CORTES APRN Nov 06, 2019 13:25
[2019-11-06] MEDS ORDERED: IPRATRPIUM/ALBUTEROL 0.5/2.5MG 3 ML NEBU. NEB ONE (13:30)
[2019-11-06] MEDS ORDERED: IV NORMAL SALINE 1000ML BAG 1,000 ML IV ONE (13:30)
[2019-11-06 13:36] LABS: BASO % 0 % (0-3); EOS # 0.7 x10^3/uL (0.0-0.7); EOS % 8 % (0-3); HEMATOCRIT 37.9 % (39.0-53.0); HEMOGLOBIN 12.9 g/dL (13.0-17.5); LYMPH # 0.8 x10^3/uL (1.0-4.8); LYMPH % 10 % (24-48); MEAN CORPUSCULAR HEMOGLOBIN 33 pg (25-35); MEAN CORPUSCULAR HGB CONC 34 g/dL (31-37); MEAN CORPUSCULAR VOLUME 97 fL (79-100); MONO # 1.4 x10^3/uL (0.0-1.1); MONO % 16 % (0-9); NEUT # 5.5 x10^3/uL (1.8-7.7); NEUT % 65 % (31-73); PLATELET COUNT 186 x10^3/uL (140-400); RED BLOOD COUNT 3.89 x10^6/uL (4.30-5.70); RED CELL DISTRIBUTION WIDTH 16.1 % (11.5-14.5); WHITE BLOOD COUNT 8.5 x10^3/uL (4.0-11.0)
[2019-11-06 13:46] LABS: BILIRUBIN,URINE NEGATIVE (NEG); CLARITY,URINE CLEAR; COLOR,URINE YELLOW; NITRITE,URINE NEGATIVE (NEG); PH,URINE 5.5 (<5.0-8.0); PROTEIN,URINE NEGATIVE (NEG-TRACE); UROBILINOGEN,URINE 0.2 mg/dL (0.2 mg/dL)
[2019-11-06 13:48] LABS: PROTHROMBIN TIME PATIENT 13.2 SEC (11.7-14.0)
--- NOTE | 2019-11-06 13:52 | RAD ---
CHEST AP ONLY History: Altered level of consciousness. Comparison: July 03, 2019 Findings: No consolidation or pleural effusion. Unchanged heart size. No pneumothorax. Left-sided pacemaker, unchanged. Bilateral glenohumeral DJD. Impression: 1. No acute cardiopulmonary process. Electronically signed by: Sravan Estrada DO (11/06/2019 1:49 PM) [id number]
[2019-11-06 13:56] LABS: BACTERIA,URINE 0 /HPF (0-FEW); RBC,URINE 0 /HPF (0-2); WBC,URINE OCC /HPF (0-4)
--- NOTE | 2019-11-06 14:32 | RAD ---
CT HEAD WO CONTRAST Date: 11/06/2019 1:17 PM Clinical Indication: Altered mental status Comparison: 10/11/2019. Technique: 5 mm axial tomographic images were obtained of the head without contrast. These were viewed on brain and bone windows. One or more of the following dose reduction techniques were utilized: Automated exposure control (AEC), Adjustment of mA and/or kV according to patient size, Use of iterative reconstruction technique such as ASiR, CT scan done according to ALARA and image gently/image wisely Findings: Moderate generalized cerebral and cerebellar volume loss. Moderate nonspecific periventricular hypoattenuation, most commonly seen with chronic small vessel ischemic disease. Calcified atherosclerosis of the bilateral cavernous and paraclinoid internal carotid arteries and intracranial vertebral arteries. Small area of right occipital encephalomalacia. No intra- or extra-axial mass or fluid collection. No acute hemorrhage. The ventricles are normal in size, shape, and morphology. The pierre-white matter junction is normal. The subarachnoid cisterns are patent. The visualized paranasal sinuses are normal. The visualized portions of the orbits and globes are normal. The mastoid air cells are clear. The fire alarm operator topogram shows no lytic lesion or fracture. Impression: No acute intracranial process. Moderate cerebral volume loss. Moderate chronic small vessel ischemic disease. Electronically signed by: Marvin Wganer MD (11/06/2019 2:29 PM) [id number]
--- NOTE | 2019-11-06 14:51 | EKG ---
[facility] [address] [place] [address] Test Date: 2019-11-06 Test Time: 13:48:42 Pat Name: DARYL WEBSTER Department: Room: Gender: M Wheelman: : 1935 Requested By: PRACHI CORTES Order Number: [id number] Reading MD: Measurements Intervals [place] Rate: 74 P: [place]: QRS: -65 QRSD: 176 T: 116 QT: 466 QTc: 523 Interpretive Statements ATRIAL FIBRILLATION VENTRICULAR PREMATURE COMPLEX(ES) ABNORMAL LEFT AXIS DEVIATION NON SPECIFIC INTRAVENTRICULAR BLOCK QRS(T) CONTOUR ABNORMALITY CONSISTENT WITH ANTEROLATERAL INFARCT PROBABLY OLD CONSISTENT WITH INFERIOR INFARCT PROBABLY OLD ABNORMAL ECG No previous ECG available for comparison
[2019-11-06 15:09] LABS: CALCIUM 9.1 mg/dL (8.5-10.1); CREATININE 1.5 mg/dL (0.7-1.3); GFR 54.1; POTASSIUM 4.3 mmol/L (3.5-5.1)
[2019-11-06 15:19] LABS: ALBUMIN 2.5 g/dL (3.4-5.0); ALBUMIN/GLOBULIN RATIO 0.6 (1.0-1.7); MAGNESIUM 2.5 mg/dL (1.8-2.4); TOTAL BILIRUBIN 0.4 mg/dL (0.2-1.0); TOTAL PROTEIN 6.9 g/dL (6.4-8.2)
[2019-11-06 17:50] VITALS: BP 136/67
== END 2019-11-06 18:00 | disposition home or self-care (01) ==
LOC: ER 12:54
DX: R41.82 Altered mental status, unspecified (principal); E87.8 Other disorders of electrolyte and fluid balance, not elsewhere classified; E87.0 Hyperosmolality and hypernatremia; I48.91 Unspecified atrial fibrillation; E78.00 Pure hypercholesterolemia, unspecified; K21.9 Gastro-esophageal reflux disease without esophagitis; Z90.49 Acquired absence of other specified parts of digestive tract; Z95.0 Presence of cardiac pacemaker; Z98.890 Other specified postprocedural states; E66.9 Obesity, unspecified; Z68.42 Body mass index [BMI] 45.0-49.9, adult; Z88.0 Allergy status to penicillin; Z91.041 Radiographic dye allergy status
CPT/HCPCS: 36415; 51701; 70450; 71045; 80053; 81001; 83605; 83735; 83880; 84484; 85025; 85610; 93005; 94640; 96360; 96361; 99285; J7030